=== PATIENT | male | born 1945 | race Caucasian/White ===

== ENCOUNTER → 2017-06-28 15:46 | Outpatient (CLI) | payer MEDICARE, OTHER, SELFPAY ==
[2017-06-28 17:36] LABS: Absolute Lymphocyte Count 1.37 X10^3/ul (0.83-4.51); Absolute Neutrophil Count 3.5 X10^3/uL (2.0-7.7); Basophil# 0.02 X10^3/uL; Basophil% 0.4 % (0-1); Eosinophil# 0.15 X10^3/uL; Eosinophils% 2.7 % (0-5); Hematocrit 31.6 % (40-54); Hemoglobin 8.3 g/dl (13.0-16.5); Lymphocyte # 1.37 X10^3/ul (4.0); Lymphocyte % 24.4 % (19-41); Mean Corp Hgb Conc 26.3 g/gl (32-36); Mean Corpuscular Hgb 18.4 pg (27.0-32.0); Mean Corpuscular Volume 69.9 fL (80-94); Mean Platelet Vol. 9.6 fl (6.2-12.0); Monocyte# 0.58 X10^3/uL; Monocyte% 10.3 % (0-10); Neutrophil # 3.49 X10^3/uL (2.7-7.7); Platelet Count 185 K/mm3 (150-450); RBC Distribution Width CV 18.8 % (11.6-14.6); Red Blood Count 4.52 M/mm3 (4.6-6.2); White Blood Count 5.6 K/mm3 (4.4-11.0)
[2017-06-28 17:37] LABS: Differential Indicated SCAN CRITERIA MET; POSITIVE COUNT NO; POSITIVE DIFFERENTIAL NO; POSITIVE MORPHOLOGY YES
[2017-06-28 17:40] LABS: Vitamin D,25 Hydroxy 55.4 ng/mL (29.95-100.01)
[2017-06-28 17:43] LABS: ALB/GLOB Ratio 1.1 RATIO (0.9-2.4); AST(SGOT) 14 U/L (15-37); Alanine Aminotransfer ALT/SGPT 19 U/L (16-61); Albumin, Serum 3.6 g/dL (3.2-5.0); Alkaline Phosphatase 80 U/L (45-117); Anion Gap 7 (5-15); BUN 43 mg/dL (7-18); BUN/Creat Ratio 28.5 RATIO (10-20); Calcium,Total 8.7 mg/dL (8.5-10.1); Chloride 107 mmol/L (98-107); Creatinine, Serum 1.51 mg/dL (0.70-1.30); EST Glomerular Filtration Rate 48 mL/min (>60); Est Glom Filt Rate - Afr Amer 59 mL/min (>60); Globulin 3.3 g/dL (2.2-4.2); Glucose 100 mg/dL (74-106); Potassium 4.3 mmol/L (3.5-5.1); Protein, Total 6.9 g/dL (6.4-8.2); Sodium Level 143 mmol/L (136-145); Thyroid Stim Hormone (TSH) 2.57 uIU/mL (0.358-3.74)
[2017-06-28 17:53] LABS: Differential Comment SCANNED
[2017-06-30 09:28] LABS: Hep C Antibodies <0.1 s/co ratio (0.0-0.9)
== END ==
PROVIDERS: Visit Provider Family Medicine Geriatric Medicine
DX: Z13.89 Encounter for screening for other disorder (principal); E55.9 Vitamin D deficiency, unspecified; I25.10 Atherosclerotic heart disease of native coronary artery without angina pectoris; I10 Essential (primary) hypertension
CPT/HCPCS: 36415; 80053; 82306; 84443; 85025; 86803

== ENCOUNTER → 2017-07-21 16:48 | Outpatient (CLI) | payer MEDICARE, OTHER, SELFPAY ==
[2017-07-21 17:45] LABS: Absolute Lymphocyte Count 1.15 X10^3/ul (0.83-4.51); Basophil# 0.03 X10^3/uL; Basophil% 0.6 % (0-1); Eosinophil# 0.18 X10^3/uL; Eosinophils% 3.7 % (0-5); Hematocrit 29.5 % (40-54); Hemoglobin 7.9 g/dl (13.0-16.5); Immature Platelet Fraction 3.5 % (1.0-7.9); Lymphocyte # 1.15 X10^3/ul (4.0); Lymphocyte % 23.7 % (19-41); Mean Corp Hgb Conc 26.8 g/gl (32-36); Mean Corpuscular Hgb 18.8 pg (27.0-32.0); Mean Corpuscular Volume 70.1 fL (80-94); Mean Platelet Vol. 9.1 fl (6.2-12.0); Monocyte# 0.48 X10^3/uL; Monocyte% 9.9 % (0-10); Neutrophil # 3.01 X10^3/uL (2.7-7.7); Neutrophil % 62.1 % (47-70); Platelet Count 158 K/mm3 (150-450); RBC Distribution Width CV 18.6 % (11.6-14.6); RET-HE 16.2 pg (30-35); Red Blood Count 4.21 M/mm3 (4.6-6.2); White Blood Count 4.9 K/mm3 (4.4-11.0)
[2017-07-21 17:46] LABS: Differential Indicated SCAN CRITERIA MET; POSITIVE COUNT NO; POSITIVE DIFFERENTIAL NO; POSITIVE MORPHOLOGY YES
[2017-07-21 18:30] LABS: Vitamin B12 890 pg/mL (211-911)
[2017-07-21 19:16] LABS: Iron 19 ug/dL (65-175); Iron Binding Capacity,Total 347 ug/dL (250-450)
== END ==
PROVIDERS: Visit Provider Family Medicine Geriatric Medicine
DX: D64.9 Anemia, unspecified (principal)
CPT/HCPCS: 36415; 82607; 82746; 83540; 83550; 85025; 85045

== ENCOUNTER → 2017-08-12 13:44 | Outpatient (CLI) | payer MEDICARE, OTHER, SELFPAY ==
[2017-08-12 17:16] LABS: Absolute Lymphocyte Count 1.01 X10^3/ul (0.83-4.51); Absolute Neutrophil Count 2.5 X10^3/uL (2.0-7.7); Basophil# 0.03 X10^3/uL; Basophil% 0.7 % (0-1); Eosinophil# 0.14 X10^3/uL; Eosinophils% 3.3 % (0-5); Hematocrit 36.5 % (40-54); Hemoglobin 10.1 g/dl (13.0-16.5); Lymphocyte # 1.01 X10^3/ul (4.0); Lymphocyte % 24.1 % (19-41); Mean Corp Hgb Conc 27.7 g/gl (32-36); Mean Corpuscular Hgb 22.1 pg (27.0-32.0); Mean Corpuscular Volume 79.7 fL (80-94); Mean Platelet Vol. 9.9 fl (6.2-12.0); Monocyte# 0.46 X10^3/uL; Neutrophil # 2.54 X10^3/uL (2.7-7.7); Neutrophil % 60.7 % (47-70); Platelet Count 197 K/mm3 (150-450); RBC Distribution Width CV 28.1 % (11.6-14.6); RBC Distribution Width SD 77.9 fl (35.1-43.9); Red Blood Count 4.58 M/mm3 (4.6-6.2); White Blood Count 4.2 K/mm3 (4.4-11.0)
[2017-08-12 17:20] LABS: Differential Indicated SCAN CRITERIA MET; POSITIVE COUNT NO; POSITIVE DIFFERENTIAL NO; POSITIVE MORPHOLOGY YES
[2017-08-12 17:38] LABS: ALB/GLOB Ratio 1.2 RATIO (0.9-2.4); AST(SGOT) 20 U/L (15-37); Alanine Aminotransfer ALT/SGPT 22 U/L (16-61); Albumin, Serum 3.5 g/dL (3.2-5.0); Alkaline Phosphatase 75 U/L (45-117); Anion Gap 8 (5-15); BUN 29 mg/dL (7-18); BUN/Creat Ratio 22.1 RATIO (10-20); Chloride 108 mmol/L (98-107); Creatinine, Serum 1.31 mg/dL (0.70-1.30); EST Glomerular Filtration Rate 57 mL/min (>60); Est Glom Filt Rate - Afr Amer 69 mL/min (>60); Glucose 105 mg/dL (74-106); Iron 47 ug/dL (65-175); Iron Binding Capacity,Total 333 ug/dL (250-450); Potassium 4.4 mmol/L (3.5-5.1); Protein, Total 6.5 g/dL (6.4-8.2); Sodium Level 144 mmol/L (136-145); Thyroid Stim Hormone (TSH) 2.38 uIU/mL (0.358-3.74)
[2017-08-12 18:03] LABS: Anisocytosis 2+; Burr Cells RARE; Ovalocyte 1+
[2017-08-12 18:08] LABS: Acanthocytes RARE
== END ==
PROVIDERS: Visit Provider Internal Medicine Nephrology
DX: D50.9 Iron deficiency anemia, unspecified (principal); I10 Essential (primary) hypertension
CPT/HCPCS: 36415; 80053; 83540; 83550; 84443; 85025

== ENCOUNTER → 2017-08-27 09:51 | Outpatient (CLI) | payer MEDICARE, OTHER, SELFPAY ==
--- NOTE | 2017-08-27 10:03 | US_ITS ---
STUDY: RENAL ULTRASOUND - COMPLETE REASON FOR EXAM: Male, 72 years old. CKD 3 TECHNIQUE: Ultrasound evaluation of the kidneys was performed with real-time and static michel-scale imaging. COMPARISON: None. FINDINGS: RIGHT KIDNEY: Normal location of the right kidney, which is normal in size. The right kidney measures 10.7 x 5.1 x 5.5 cm. There is a normal cortex of the right kidney. The renal cortex measures 1.7 cm. There is no right renal mass or cyst. There are no right renal calculi. There is no right hydronephrosis. DISTAL RIGHT URETER: There is non-visualization of the distal right ureter. There is no demonstrated right ureterovesical junction calculus. There is no demonstrated right ureteral jet. LEFT KIDNEY: Normal location of the left kidney, which is normal in size. The left kidney measures 10.9 x 5.3 x 4.8 cm. There is a normal cortex of the left kidney. The renal cortex measures 1.3 cm. There is no left renal mass or cyst. There are no left renal calculi. There is no left hydronephrosis. DISTAL LEFT URETER: There is non-visualization of the distal left ureter. There is no demonstrated left ureterovesical junction calculus. There is no demonstrated left ureteral jet. AORTA: There is no elongation or tortuosity acute of the abdominal aorta. I.V.C.: The IVC is obscured. BLADDER: The distended urinary bladder has a volume of 32 ml. There is a normal wall thickness of the distended urinary bladder. There is no demonstrated mass within the urinary bladder. There are no demonstrated bladder calculi. US/Kidney and Bladder IMPRESSION: Normal ultrasound of the kidneys and urinary bladder. Electronically Signed: Blayne Valle MD at 21:07 EDT , Service support ,
== END ==
PROVIDERS: Family Provider Family Medicine Geriatric Medicine; PCP Family Medicine Geriatric Medicine; Visit Provider Internal Medicine Nephrology
DX: N18.3 Chronic kidney disease, stage 3 (moderate) (principal)
CPT/HCPCS: 76770

== ENCOUNTER → 2017-10-12 16:27 | Outpatient (CLI) | payer MEDICARE, OTHER, SELFPAY ==
[2017-10-12 17:24] LABS: Albumin, Serum 3.4 g/dL (3.2-5.0); BUN 34 mg/dL (7-18); Calcium,Total 8.5 mg/dL (8.5-10.1); Chloride 110 mmol/L (98-107); Creatinine, Serum 1.36 mg/dL (0.70-1.30); EST Glomerular Filtration Rate 55 mL/min (>60); Est Glom Filt Rate - Afr Amer 66 mL/min (>60); Glucose 90 mg/dL (74-106); Potassium 4.2 mmol/L (3.5-5.1); Sodium Level 144 mmol/L (136-145)
== END ==
PROVIDERS: Family Provider Family Medicine Geriatric Medicine; PCP Family Medicine Geriatric Medicine; Visit Provider Internal Medicine Nephrology
DX: N18.3 Chronic kidney disease, stage 3 (moderate) (principal)
CPT/HCPCS: 36415; 80069

== ENCOUNTER → 2017-12-15 15:23 | Outpatient (CLI) | payer MEDICARE, OTHER, SELFPAY ==
[2017-12-15 16:18] LABS: Absolute Lymphocyte Count 1.31 X10^3/ul (0.83-4.51); Absolute Neutrophil Count 3.2 X10^3/uL (2.0-7.7); Basophil# 0.03 X10^3/uL; Basophil% 0.6 % (0-1); Eosinophil# 0.13 X10^3/uL; Eosinophils% 2.6 % (0-5); Hematocrit 41.5 % (40-54); Hemoglobin 12.9 g/dl (13.0-16.5); Lymphocyte # 1.31 X10^3/ul (4.0); Lymphocyte % 26.2 % (19-41); Mean Corp Hgb Conc 31.1 g/gl (32-36); Mean Corpuscular Hgb 26.9 pg (27.0-32.0); Mean Corpuscular Volume 86.5 fL (80-94); Mean Platelet Vol. 10.7 fl (6.2-12.0); Monocyte# 0.37 X10^3/uL; Monocyte% 7.4 % (0-10); Neutrophil # 3.15 X10^3/uL (2.7-7.7); Platelet Count 176 K/mm3 (150-450); RBC Distribution Width CV 15.9 % (11.6-14.6); RBC Distribution Width SD 49.8 fl (35.1-43.9)
[2017-12-15 16:21] LABS: POSITIVE COUNT NO; POSITIVE DIFFERENTIAL NO; POSITIVE MORPHOLOGY NO
[2017-12-15 16:41] LABS: Vitamin D,25 Hydroxy 58.4 ng/mL (29.95-100.01)
[2017-12-15 16:54] LABS: ALB/GLOB Ratio 1.1 RATIO (0.9-2.4); AST(SGOT) 19 U/L (15-37); Alanine Aminotransfer ALT/SGPT 28 U/L (16-61); Albumin, Serum 3.6 g/dL (3.2-5.0); Alkaline Phosphatase 92 U/L (45-117); Anion Gap 7 (5-15); BUN 41 mg/dL (7-18); BUN/Creat Ratio 28.1 RATIO (10-20); Calcium,Total 8.5 mg/dL (8.5-10.1); Chloride 109 mmol/L (98-107); Creatinine, Serum 1.46 mg/dL (0.70-1.30); EST Glomerular Filtration Rate 50 mL/min (>60); Est Glom Filt Rate - Afr Amer 61 mL/min (>60); Globulin 3.4 g/dL (2.2-4.2); Glucose 100 mg/dL (74-106); Potassium 4.4 mmol/L (3.5-5.1); Sodium Level 144 mmol/L (136-145); Thyroid Stim Hormone (TSH) 2.49 uIU/mL (0.358-3.74)
== END ==
PROVIDERS: Family Provider Family Medicine Geriatric Medicine; PCP Family Medicine Geriatric Medicine; Visit Provider Family Medicine Geriatric Medicine
DX: E55.9 Vitamin D deficiency, unspecified (principal); R53.83 Other fatigue
CPT/HCPCS: 36415; 80053; 82306; 84443; 85025

== ENCOUNTER → 2018-03-02 15:35 | Outpatient (CLI) | payer MEDICARE, OTHER, SELFPAY ==
--- OUTSIDE RECORDS SUMMARY | 2018-05-04 18:11 | XMS RPT_ITS ---
:1945 Author Organization OHIP Care Team Providers Name Role Phone Lorne, Wilbert Chi Attending Unavailable Lorne, Wilbert Chi Attending Unavailable Rosalia Brizuela Attending Unavailable Primay Care Physicia, No Primary Care Unavailable Fabricio Thomason Attending Unavailable Fabricio Thomason Referring Unavailable Lorne, Wilbert Chi Primary Care Unavailable Rosalia Brizuela Attending Unavailable Rosalia Brizuela Referring Unavailable Lorne, Wilbert Chi Primary Care Unavailable Rosalia Brizuela Attending Unavailable Rosalia Brizuela Referring Unavailable Lorne, Wilbert Chi Primary Care Unavailable Lorne, Wilbert Chi Attending Unavailable Lonre, Wilbert Chi Primary Care Unavailable JACI COBB Attending Unavailable JACI COBB Referring Unavailable TESTRAJACI MATUTE Attending Unavailable TESTJACI SANDERSON Referring Unavailable JAVID TUTTLE (PA) Attending Unavailable JAVID TUTTLE (GLENNY) Referring Unavailable JAVID TUTTLE (GLENNY) Referring Unavailable Dumot, Dr. Ericka Lozoya Attending Unavailable Dumot, Dr. Ericka Lozoya Referring Unavailable Cuculic, Danielle Butler Primary Care Unavailable Dumot, Dr. Ericka Lozoya Admitting Unavailable Dumot, Dr. Ericka Lozoya Attending Unavailable Cuculic, Danielle Butler Referring Unavailable Cuculic, Danielle Butler Primary Care Unavailable Dumot, Dr. 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 Natanael Hendrix without obstruction [facility] or gangrene / Repository K44.9(ICD-10) 04/26/2017 Unknown Type 2 diabetes Dumot, Dr. Natanael Hendrix mellitus without [facility] complications / Repository E11.9(ICD-10) 04/26/2017 Unknown Anemia, unspecified Dumot, Dr. Natanael Hendrix / D64.9(ICD-10) [facility] Repository 04/26/2017 Unknown Obstructive sleep Dumot, Dr. Natanael Hendrix apnea (adult) [facility] (pediatric) / Repository G47.33(ICD-10) 04/26/2017 Unknown Morbid (severe) Dumot, Dr. Natanael Hendrix obesity due to [facility] excess calories / Repository E66.01(ICD-10) 04/26/2017 Unknown Patient's Dumot, Dr. 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 Natanael Hendrix hypertension / [facility] I10(ICD-10) Repository 04/26/2017 Unknown Hyperlipidemia, Dumot, Dr. Natanael Hendrix unspecified / [facility] E78.5(ICD-10) Repository 04/26/2017 Unknown Body mass index Dumot, Dr. Natanael Hendrix (BMI) 33.0-33.9, [facility] adult / Repository Z68.33(ICD-10) 04/26/2017 Unknown Presence of other Dumot, Dr. Natanael Hendrix cardiac implants and [facility] grafts / Repository Z95.818(ICD-10) 03/18/2017 Unknown Encntr for exam for Dumot, Dr. 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 Natanael Hendrix (BMI) 36.0-36.9, [facility] adult / Repository Z68.36(ICD-10) 03/18/2017 Unknown Prsnl hx of TIA Dumot, Dr. Natanael Hendrix (TIA), and cereb [facility] infrc w/o resid Repository deficits / Z86.73(ICD-10) 03/18/2017 Unknown Personal history of Dumot, Dr. Natanael Hendrix malignant neoplasm [facility] of prostate / Repository Z85.46(ICD-10) 03/18/2017 Unknown Presence of coronary Dumot, Dr. Natanael Hendrix angioplasty implant [facility] and graft / Repository Z95.5(ICD-10) 03/18/2017 Unknown assisted (current) Dumot, Dr. Natanael Hendrix use of [facility] anticoagulants / Repository Z79.01(ICD-10) 03/18/2017 Active Encntr for exam for Dumot, Dr. Natanael Hendrix nr cmprsn and ctrl [facility] in [facility] prog Repository / Z00.6(ICD-10) 03/18/[address] Angela [facility] diagnosis with high grade [facility] dysplasia / Repository K22.711(ICD-10) PROCEDURES PROCEDURES DATE CODE DESCRIPTION STATUS SOURCE 04/26/2017 [id number]([facility] [id number] Completed [place] CPT4) Hospitals Repository 04/26/2017 [id number]([facility] 26551 Completed [place] CPT4) Hospitals Repository 03/18/2017 [id number]([facility] 73849 Completed [place] CPT4) Hospitals Repository 03/18/2017 [id number]([facility] [address] [facility] CPT4) Hospitals Repository RESULTS RESULTS Observed: 03/02/2018 Status: F Source: [place] CULTURE, THROAT 11:40 AM [facility] REPOSITORY Culture, Throat No Haemophilus, Streptococcus pneumoniae, beta-hemolytic Streptococcus isolated. ORGANISM 1: Staphylococcus aureus Amount Growth 2+ Staphylococcus aureus: REACTION Cefoxitin *NF NEG Doxycline <=0.5 S Daptomycin $$ 0.25 S Clindamycin $$ 0.25 S Inducable Clindamycin [place] NEG Erythromycin $ <=0.25 S Gentamicin $ <=0.5 S Levofloxacin $ 0.25 S Linezolid $$$$ 2 S Moxifloxicin *NF <=0.25 S Oxacillin NF 0.5 S Tigecycline $$$$ <=0.12 S Rifampin $$ <=0.5 S Tetracycline NF <=1 S Trimethoprim/Sulfametho $ <=10 S Vancomycin $ <=0.5 S (NF) indicates non-formulary drug at [facility]. Approval by Infectious Disease Specialist required before non-formulary drugs may be ordered and/or dispensed. * CLSI guidelines does not recommend testing of cephalosporins. This interpretation is deduced from Beta-lactam/penicillin results. Performed By: #### M100.1000 #### [facility] [address] [place], [place], [id number] PROGRESS Observed: 02/16/2018 Status: COMPLETED Source: [place] 3:49 PM [facility] REPOSITORY HNO ID: [id number] Author: Jaci Cobb Service: (none) Author Type: Physician Type: Progress Notes Filed: 02/16/2018 3:51 PM Note Text: Subjective: Patient presents to clinic c/o painful toenails. They state that the nails are especially painful with shoe gear and pressure. Patient states that nails 1-5 b/l are painful. Does have bunion of left foot that is not painful when he remembers to wear protective pad. No other pedal complaints at this time. Patient states no change in medications or medical history since last visit. Objective: Patient presents to clinic ambulating in sneakers Vasc: DP and PT pulses are palpable bilateral. CFT is less than 5 seconds bilateral. Skin temperature is warm to cool proximal to distal bilateral. There is mild edema or varicosities noted. Neuro: Protective sensation is intact to the foot and toes when tested with the 5.07 SWM bilateral. The hallux is downgoing bilateral. Derm: Nails 1-5 b/l are painful, discolored-yellow, thick, crumbly, dystrophic and with subungal debris. Skin is of normal turgor, texture and hair growth is present bilateral. There are no hyperkeratosis, ulcerations, scars, verruca or other lesions noted. Ortho: Muscle strength is 5/5 for all pedal groups tested. Ankle joint DF is full with the knee extended with no pain or crepitus noted. 1st MPJ ROM is decreased bilateral. There is large bunion of left foot. No skin break down is noted. Assessment: (B35.1) Onychomycosis (primary encounter diagnosis) (M79.675) Pain in toe of left foot (M79.674) Pain in toe of right foot (M20.12) Acquired hallux valgus of left foot Plan: Patient was seen and evaluated. Nails 1-5 bilateral were debrided in length and thickness. Discussed bunion of left foot. There is no pain. Cautioned patient about this bunion as this could be source of ulceration formation. He can continue with padding to prevent rubbing. Surgical options available but he is not interested. F/u in 3 months Jaci Cobb DPM PROGRESS Observed: 02/16/2018 Status: COMPLETED Source: [place] 1:44 PM [facility] REPOSITORY HNO ID: [id number] Author: Mary Elizondo Ma Service: (none) Author Type: (none) Type: Progress Notes Filed: 02/16/2018 3:51 PM Note Text: [facility] INTAKE FLOWSHEET DATA Risk Screening Do you have concerns about personal safety or safety in the home?: No Patient here for nail care. Sates that he has no pain. GIBSON Observed: 02/16/2018 Status: COMPLETED Source: [place] 1:25 PM [facility] REPOSITORY Office Visit (PODIWS) ERICKA SHELDON ([id number]) 1945 M Date Time Provider Department 02/16/18 1:25 PM JACI COBB PODIWS During your visit today, we recorded the following information about you: Mary Elizondo Ma 02/16/2018 3:51 PM Signed [facility] INTAKE FLOWSHE[employer] DATA Risk Screening Do you have concerns about personal safety or safety in the home?: No Patient here for nail care. Sates that he has no pain. Jaci Cobb DPM 02/16/2018 3:51 PM Signed Subjective: Patient presents to clinic c/o painful toenails. They state that the nails are especially painful with shoe gear and pressure. Patient states that nails 1-5 b/l are painful. Does have bunion of left foot that is not painful when he remembers to wear protective pad. No other pedal complaints at this time. Patient states no change in medications or medical history since last visit. Objective: Patient presents to clinic ambulating in [facility] Vasc: DP and PT pulses are palpable bilateral. CFT is less than 5 seconds bilateral. Skin temperature is warm to cool proximal to distal bilateral. There is mild edema or varicosities noted. Neuro: Protective sensation is intact to the foot and toes when tested with the 5.07 SWM bilateral. The hallux is downgoing bilateral. Derm: Nails 1-5 b/l are painful, discolored-yellow, thick, crumbly, dystrophic and with subungal debris. Skin is of normal turgor, texture and hair growth is present bilateral. There are no hyperkeratosis, ulcerations, scars, verruca or other lesions noted. Ortho: Muscle strength is 5/5 for all pedal groups tested. Ankle joint DF is full with the knee extended with no pain or crepitus noted. 1st MPJ ROM is decreased bilateral. There is large bunion of left foot. No skin break down is noted. Assessment: (B35.1) Onychomycosis (primary encounter diagnosis) (M79.675) Pain in toe of left foot (M79.674) Pain in toe of right foot (M20.12) Acquired hallux valgus of left foot Plan: Patient was seen and evaluated. Nails 1-5 bilateral were debrided in length and thickness. Discussed bunion of left foot. There is no pain. Cautioned patient about this bunion as this could be source of ulceration formation. He can continue with padding to prevent rubbing. Surgical options available but he is not interested. F/u in 3 months Jaci Cobb DPM Referring Provider: JACI COBB [[id number]] Allergies As of Date: 02/16/2018 (No Known Allergies) Date Reviewed: 02/16/2018 Reviewed by: Mary Elizondo Ma - Fully Assessed Reason for Visit: Established Patient [175] Primary Visit Diagnosis:Onychomycosis [B35.1] Other Visit Diagnoses:Pain in toe of left foot [M79.675] Pain in toe of right foot [M79.674] Acquired hallux valgus of left foot [M20.12] Prescriptions as of 02/16/2018 Sig: OXYBUTYNIN CHLORIDE ER 15 MG * Take 1 tablet by mouth once d* FUROSEMIDE 20 MG TABLET Take 1 tablet by mouth once d* RIVAROXABAN 20 MG TABLET Take 20 mg by mouth daily wit* FLUOXETINE 20 MG CAPSULE Take 1 capsule by mouth twice* APIXABAN 5 MG TABLET Take 1 tablet by mouth twice * CLOTRIMAZOLE-BETAMETHASONE 1 * Apply 1 application to affect* METOPROLOL SUCCINATE ER 200 M* Take 1 tablet by mouth once d* OMEPRAZOLE 20 MG CAPSULE,JORDAN* Take 1 capsule by mouth twice* OXICONAZOLE 1 % LOTION apply twice daily to affected* CLOTRIMAZOLE 1 % TOPICAL CREAM Apply 1 application to affect* ATORVASTATIN 40 MG TABLET Take 1 tablet by mouth once d* NITROGLYCERIN 0.4 MG SUBLINGU* Dissolve 1 tablet under the t* BIPAP Bilevel PAP 11/6 cmH2O, mask,* OXYMETAZOLINE 0.05 % NASAL SP* Use 2 Sprays in the nose twic* OMEGA-3 FATTY ACIDS-VITAMIN E* Take 1 capsule by mouth once * ACETAMINOPHEN 500 MG TABLET Take 500 mg by mouth every 6 * CHOLECALCIFEROL (VITAMIN D3) * Take 2,000 Units by mouth onc* PANTOPRAZOLE 40 MG TABLET,DEL* Take 40 mg by mouth twice mariah* ASPIRIN 81 MG TABLET,DELAYED * Take 81 mg by mouth once selma* Problem List As Of Date 02/16/2018 Noted Resolved Esophageal reflux [K21.9] INVALID FOR* More... Sleep apnea [G47.30] INVALID FOR* More... Left ventricular hypertrophy [I51.7] INVALID FOR* Nasal septal deviation [J34.2] INVALID FOR* Tinnitus [H93.19] INVALID FOR* Sinus congestion [R09.81] INVALID FOR*04/18/2013 Venous stasis of lower extremity [I87.8] INVALID FOR* Fever [R50.9] INVALID FOR*10/28/2013 UTI (urinary tract infection) [N39.0] INVALID FOR*10/28/2013 Mass of kidney [N28.89] INVALID FOR*10/28/2013 Mass of left kidney [N28.89] INVALID FOR*06/12/2014 Mood disorder (HCC) [F39] INVALID FOR* Chest pain [R07.9] INVALID FOR*06/12/2014 Elevated PSA [R97.20] INVALID FOR*02/19/2015 BPH (benign prostatic hyperplasia) [N40.0] INVALID FOR* UTI (lower urinary tract infection) [N39.0] INVALID FOR*06/12/2014 Lower urinary tract symptoms (LUTS) [R39.9] INVALID FOR* Elevated prostate specific antigen (PSA) [R97.2*INVALID FOR*06/12/2014 Prostate cancer (HCC) [C61] INVALID FOR* S/P PCI to LAD 2007 for stable angina [Z95.5] INVALID FOR* Essential hypertension [I10] INVALID FOR* Coronary artery disease involving la posta hall*INVALID FOR* Stress incontinence, male [N39.3] INVALID FOR* Urge incontinence [N39.41] INVALID FOR* KODY (acute kidney injury) (HCC) [N17.9] INVALID FOR*04/03/2016 Sepsis (HCC) [A41.9] INVALID FOR*04/02/2016 Cellulitis and abscess of leg [L03.119, L02.419]INVALID FOR*08/18/2016 Bacteremia due to group B Streptococcus [R78.81]INVALID FOR*04/30/2016 CKD (chronic kidney disease) stage 3, GFR 30-59*INVALID FOR* BiPAP (biphasic positive airway pressure) depen*INVALID FOR* Paroxysmal atrial fibrillation (HCC) [I48.0] INVALID FOR* Moderate episode of recurrent major depressive *INVALID FOR* Disposition: Return in about 3 months (around 05/17/2018) for nail care. Follow-up and Disposition History Recorded Encounter Status:Closed by JACI COBB DPM on 02/16/18 CBC W/DIFF, AUTOMATED Collected: 12/15/2017 Status: F Source: [place] 3:25 PM [facility] REPOSITORY TYPE CODE TESTS RESULT OUT OF RANGE REFERENCE UNITS LAB L100.1000 4.4-11.0 K/mm3 Normal WBC 5.0 LAB L100.1200 4.6-6.2 M/mm3 Normal RBC 4.80 LAB L100.1300 13.0-16.5 g/dl Low HGB 12.9 LAB L100.1400 40-54 % Normal HCT 41.5 LAB L100.1500 80-94 fL Normal MCV 86.5 LAB L100.1600 27.0-32.0 pg Low MCH 26.9 LAB L100.1700 32-36 g/gl Low MCHC 31.1 LAB L100.1810 11.6-14.6 % High RDW CV 15.9 LAB L100.1820 35.1-43.9 fl High RDW SD 49.8 LAB L100.1900 150-450 K/mm3 Normal PLT 176 LAB L100.2000 6.2-12.0 fl Normal MPV 10.7 LAB L100.2100 47-70 % Normal NEUT% 63.0 LAB L100.2200 19-41 % Normal LY% 26.2 LAB L100.2300 0-10 % Normal MONO% 7.4 LAB L100.2400 0-5 % Normal EO% 2.6 LAB L100.2500 0-1 % Normal BASO% 0.6 LAB L100.2550 0.0-0.9 % Normal IM GRAN % 0.200 Result Comment: IG% - Immature Granulocytes (promyelocytes, myelocytes and metamyelocytes) > 1% indicates that a LEFT SHIFT is Present. LAB L100.2620 2.0-7.7 X10 3/uL Normal Absolute Neut 3.2 LAB L100.2720 0.83-4.51 X10 3/ul Normal Absolute Lymph 1.31 Performed By: #### L100.0100 #### [facility] [address] [place], [place], [address] VITAMIN D,25 HYDROXY Collected: 12/15/2017 Status: F Source: [place] 3:25 PM [facility] REPOSITORY TYPE CODE TESTS RESULT OUT OF RANGE REFERENCE UNITS LAB L506.1000 29.95-100.01 ng/mL Normal Vitamin D 58.4 25-OH Result Comment: Vitamin D 25(OH) Status Range Deficiency <20 ng/mL (50nmol/L) Insuffciency 20 - 30 ng/mL (50 - 75 nmol/L) Sufficiency 30 - 100 ng/mL (75 - 250 nmol/L) Toxicity >100 ng/mL (>250 nmol/L) Performed By: #### L506.1000 #### [facility] [address] [place], [place], [address] COMPREHENSIVE METABOLIC Collected: 12/15/2017 Status: F Source: [facility] 3:25 PM [facility] REPOSITORY TYPE CODE TESTS RESULT OUT OF RANGE REFERENCE UNITS LAB L501.0100 74-106 mg/dL Normal GLU 100 Result Comment: Fasting Glucose result from 100 to 125 mg/dL suggests IMPAIRED HOMEOSTASIS per A.D.A. criteria. Please note revised GLUCOSE reference range effective 2017. LAB L501.1000 7-18 mg/dL High BUN 41 LAB L501.1100 0.70-1.30 mg/dL High CREAT,SERUM 1.46 Result Comment: The validity of the calculated GFR AND GFRAA in patients over 70 years has not been determined. Clinical correlation is essential. LAB L501.1110 >60 mL/min Low EST GFR 50 Result Comment: Non- GFR Calc LAB L501.1115 >60 mL/min Normal EST GFR - AA 61 Result Comment: GFR Calc LAB L501.1300 10-20 RATIO High BUN/CRE 28.1 LAB L501.1500 6.4-8.2 g/dL T Normal PROT 7.0 LAB L501.1800 3.2-5.0 g/dL Normal ALB 3.6 LAB L501.1950 2.2-4.2 g/dL Normal GLOB 3.4 LAB L501.2000 0.9-2.4 RATIO Normal A/G 1.1 LAB L501.2200 8.5-10.1 mg/dL CA Normal 8.5 LAB L501.4100 15-37 U/L Normal AST 19 LAB L501.4305 45-117 U/L Normal ALK P 92 LAB L501.4405 16-61 U/L Normal ALT 28 LAB L501.4600 0.20-1.00 mg/dL T Normal BILI 0.60 LAB L501.5300 136-145 mmol/L NA Normal 144 LAB L501.5600 3.5-5.1 mmol/L K Normal 4.4 LAB L501.5900 98-107 mmol/L High CL 109 LAB L501.6100 21.0-32.0 mmol/L Normal CO2 28.0 LAB L501.6200 5-15 Normal GAP 7 Performed By: #### L500.4050, L501.9520 #### [facility] [address] [place], [place], [id number] THYROID STIM HORMONE Collected: 12/15/2017 Status: F Source: [place] ([facility]) 3:25 PM [facility] REPOSITORY TYPE CODE TESTS RESULT OUT OF RANGE REFERENCE UNITS LAB L501.9520 0.358-3.74 uIU/mL Normal TSH 2.49 Performed By: #### L500.4050, L501.9520 #### [facility] [address] [place], [place], [address] PROGRESS Observed: 12/09/2017 Status: COMPLETED Source: [place] 2:19 PM [facility] [place] REPOSITORY HNO ID: [id number] Author: Jaci Cobb Service: (none) Author Type: Physician Type: Progress Notes Filed: 12/09/2017 2:34 PM Note Text: Initial Podiatric Office Visit: Chief Complaint: This 72 year old male who presents with chief complaint:painful toenails of b/l feet HPI Patient presents to clinic complaining of thick discolored and painful left hallux toenail. He is here to discuss options for the toenail He is not to sure if he wants the nails debrided today. He also has pain to bunion of left foot PAIN EVALUATION No data found. Hemoglobin A1C (%) Date Value 12/15/2016 6.0 06/06/2014 5.9 12/26/2013 5.7 06/08/2011 5.6 03/25/2007 5.8 PCP: Wilbert Pradhan MD PAST MEDICAL HISTORY Diagnosis Date - Atrial fibrillation (HCC) 04/02/2016 - Bacteremia due to group B Streptococcus 04/02/2016 - Coronary atherosclerosis of unspecified type of vessel, la posta or graft 90% LAD --> LIZ 2008 40% RCA - Depression - Esophageal reflux - Essential hypertension, benign - Mixed hyperlipidemia Hyperlipidemia - Obstructive sleep apnea - Paroxysmal atrial fibrillation (HCC) 04/30/2016 - Prostate cancer (HCC) 07/11/2014 Current Outpatient Prescriptions: oxybutynin ER (DITROPAN XL) 15 mg 24 hr Extended Rel Tab Take 1 tablet by mouth once daily. furosemide (LASIX) 20 mg tablet Take 1 tablet by mouth once daily. rivaroxaban (XARELTO) 20 mg tablet Take 20 mg by mouth daily with dinner. FLUoxetine (PROZAC) 20 mg capsule Take 1 capsule by mouth twice daily. apixaban (ELIQUIS) 5 mg tab tab(s) Take 1 tablet by mouth twice daily. clotrimazole-betamethasone (LOTRISONE) cream Apply 1 application to affected area twice daily. TO AFFECTED AREA. metoprolol succinate ER (TOPROL XL) 200 mg 24 hr tablet Take 1 tablet by mouth once daily. omeprazole (PRILOSEC) 20 mg capsule Take 1 capsule by mouth twice daily. Oxiconazole Nitrate (OXISTAT) 1 % lotion apply twice daily to affected area as needed clotrimazole (LOTRIMIN, CLOTRIM) 1 % cream Apply 1 application to affected area twice daily. atorvastatin (LIPITOR) 40 mg tablet Take 1 tablet by mouth once daily. nitroglycerin sublingual (NITROQUICK) 0.4 mg SL tablet Dissolve 1 tablet under the tongue every 5 minutes as needed for Chest Pain. BIPAP Bilevel PAP 11/6 cmH2O, mask, tubing, filters, heated humidity, lifetime supplies. Dx: EDER [place]-3 Fatty Acids-Vitamin E (FISH OIL) 1,000 mg cap Take 1 capsule by mouth once daily. acetaminophen (TYLENOL) 500 mg tablet Take 500 mg by mouth every 6 hours as needed for Pain. cholecalciferol (VITAMIN D-3) 2,000 unit tablet Take 2,000 Units by mouth once daily. pantoprazole DR (PROTONIX) 40 mg tablet Take 40 mg by mouth twice daily. oxymetazoline (GENASAL) 0.05 % nasal spray Use 2 Sprays in the nose twice daily. PRN aspirin, enteric coated (ASPIRIN, ENTERIC COATED) 81 mg EC tablet Take 81 mg by mouth once daily. No current facility-administered medications for this visit. ALLERGIES No Known Allergies PAST SURGICAL HISTORY Procedure Laterality Date - APPENDECTOMY - COLONOSCOP W/ OR W/O [facility] SPEC 2001, 2016 - EGD W/O OR W/BRUSH/WASH 07/2012 EGD - PROSTATE SURGERY HX removed on 10/04/2014 - REMOVAL OF TONSILS,<12 Y/O Tonsillectomy - REPAIR OF NASAL SEPTUM Septoplasty - STENT PLACEMENT LIZ LAD 2007 - TOTAL KNEE REPLACEMENT Knee replacement, total right - TOTAL KNEE REPLACEMENT Knee replacement, total left FAMILY HISTORY Problem Relation Age of Onset - Cancer Father lung - Coronary Artery Disease Brother 2 brothers s/p PCI Social History Marital status: Spouse name: Years of education: 12 Number of children: 2 Occupational History 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[employer]* [employer] Social History Main Topics Smoking status: Never Smoker Smokeless tobacco: Never Used Alcohol use: No Drug use: No Sexual activity: Yes Partners with: Female Other Topics Concern Yes Comment:62[employer] BLOOD TRANSFUSIONS No SEAT BELT Yes REVIEW OF SYSTEMS GENERAL: Negative for Malaise, significant weight loss, fever RESPIRATORY: Negative for cough, wheezing and shortness of breath CARDIOVASCULAR: Negative for chest pain, leg swelling and palpitations GI: Negative for abdominal discomfort, blood in stools or black stools and change in bowel habits : Negative for dysuria, frequency and incontinence MUSCULOSKELETAL: Negative for joint pain or swelling, back pain, and muscle pain. SKIN: Negative for lesions, rash, and itching. HEMATOLOGY/LYMPHOLOGY Negative for prolonged bleeding, bruising easily, and swollen nodes. ENDOCRINE: Negative for cold or heat intolerance, polyuria, polydipsia and goiter. NEURO: negative Physical Exam: Constitutional: Pt is a well developed 72 year old male who is alert, oriented and cooperative Eyes: Following during examination. No redness or drainage. Respiratory: RR normal and nonlabored. Even breathing. No evidence of distress or shortness of breath. Psychology: Patient is engaged during conversation. Normal affect and mood. Does not appear depressed or anxious during encounter. Vascular: Dorsalis pedis and posterior tibial pulses palpable as b/l Capillary Fill time < 5 seconds to digits 1-5 b/l Skin temperature warm to warm proximal to distal b/l Hair growth present to digits Neurological: intact light touch/epicritic sensation Vibratory sensation decreased b/l decreased protective sensation + significant neurological deficits Dermatological: Nails 1-5 b/l appear thick, discolored, painful. Webspaces clean and dry 1-4 b/l. Skin appears dry b/l. No open lesions present. No callosities present. Musculoskeletal/Orthopaedic: Patient has pain to palpation of bunion of left foot Foot type is neutral structurally AJ ROM is full with knee extended and flexed 1st MPJ is full when loaded and no pain or crepitus are noted with ROM. MTJ, STJ are full and free of pain and crepitus. +5/5 muscle strength dorsiflexion, plantarflexion, inversion, eversion b/l ASSESSMENT: (B35.1) Onychomycosis (primary encounter diagnosis) (M79.675) Pain in toe of left foot (M79.674) Pain in toe of right foot (M20.12) Acquired hallux valgus of left foot PLAN: 1. History and physical examination performed. 2. Discussed painful toenails. Discussed debridement vs removal. He may consider removal in future. Today, he elected for debridement. Debridement 1-5 b/l was performed 3. Discussed bunion of left foot. This is progressive disorder. Offered xrays but he declined. Bunion sleeve dispensed. Continue with wider shoes 4. F/u in 3 months JANE Whittaker Observed: 12/09/2017 Status: COMPLETED Source: [facility] Office Visit (PODIWS) ERICKA SHELDON ([id number]) 1945 M Date Time Provider Department 12/09/17 2:10 PM JACI COBB PODLAQUITA During your visit today, we recorded the following information about you: Carmela Carrizales MA 12/09/2017 2:34 PM Signed AMB ROOMING INTAKE FLOWSHEET DATA Risk Screening Do you have concerns about personal safety or safety in the home?: No Patient is present for toenail fungus. Patient denies diabetic. Carmela Cobb DPM 12/09/2017 2:34 PM Signed Initial Podiatric Office Visit: Chief Complaint: This 72 year old male who presents with chief complaint:painful toenails of b/l feet HPI Patient presents to clinic complaining of thick discolored and painful left hallux toenail. He is here to discuss options for the toenail He is not to sure if he wants the nails debrided today. He also has pain to bunion of left foot PAIN EVALUATION No data found. Hemoglobin A1C (%) Date Value 12/15/2016 6.0 06/06/2014 5.9 12/26/2013 5.7 06/08/2011 5.6 03/25/2007 5.8 PCP: Wilbert Pradhan MD PAST MEDICAL HISTORY Diagnosis Date - Atrial fibrillation (HCC) 04/02/2016 - Bacteremia due to group B Streptococcus 04/02/2016 - Coronary atherosclerosis of unspecified type of vessel, la posta or graft 90% LAD --> LIZ 2008 40% RCA - Depression - Esophageal reflux - Essential hypertension, benign - Mixed hyperlipidemia Hyperlipidemia - Obstructive sleep apnea - Paroxysmal atrial fibrillation (HCC) 04/30/2016 - Prostate cancer (HCC) 07/11/2014 Current Outpatient Prescriptions: oxybutynin ER (DITROPAN XL) 15 mg 24 hr Extended Rel Tab Take 1 tablet by mouth once daily. furosemide (LASIX) 20 mg tablet Take 1 tablet by mouth once daily. rivaroxaban (XARELTO) 20 mg tablet Take 20 mg by mouth daily with dinner. FLUoxetine (PROZAC) 20 mg capsule Take 1 capsule by mouth twice daily. apixaban (ELIQUIS) 5 mg tab tab(s) Take 1 tablet by mouth twice daily. clotrimazole-betamethasone (LOTRISONE) cream Apply 1 application to affected area twice daily. TO AFFECTED AREA. metoprolol succinate ER (TOPROL XL) 200 mg 24 hr tablet Take 1 tablet by mouth once daily. omeprazole (PRILOSEC) 20 mg capsule Take 1 capsule by mouth twice daily. Oxiconazole Nitrate (OXISTAT) 1 % lotion apply twice daily to affected area as needed clotrimazole (LOTRIMIN, CLOTRIM) 1 % cream Apply 1 application to affected area twice daily. atorvastatin (LIPITOR) 40 mg tablet Take 1 tablet by mouth once daily. nitroglycerin sublingual (NITROQUICK) 0.4 mg SL tablet Dissolve 1 tablet under the tongue every 5 minutes as needed for Chest Pain. BIPAP Bilevel PAP 11/6 cmH2O, mask, tubing, filters, heated humidity, lifetime supplies. Dx: EDER Aurora-3 Fatty Acids-Vitamin E (FISH OIL) 1,000 mg cap Take 1 capsule by mouth once daily. acetaminophen (TYLENOL) 500 mg tablet Take 500 mg by mouth every 6 hours as needed for Pain. cholecalciferol (VITAMIN D-3) 2,000 unit tablet Take 2,000 Units by mouth once daily. pantoprazole DR (PROTONIX) 40 mg tablet Take 40 mg by mouth twice daily. oxymetazoline (GENASAL) 0.05 % nasal spray Use 2 Sprays in the nose twice daily. PRN aspirin, enteric coated (ASPIRIN, ENTERIC COATED) 81 mg EC tablet Take 81 mg by mouth once daily. No current facility-administered medications for this visit. ALLERGIES No Known Allergies PAST SURGICAL HISTORY Procedure Laterality Date - APPENDECTOMY - COLONOSCOP W/ OR W/O BRSH SPEC 2016 - EGD W/O OR W/BRUSH/WASH 07/2012 EGD - PROSTATE SURGERY HX removed on 10/04/2014 - REMOVAL OF TONSILS,<12 Y/O Tonsillectomy - REPAIR OF NASAL SEPTUM Septoplasty - STENT PLACEMENT LIZ LAD 2007 - TOTAL KNEE REPLACEMENT Knee replacement, total right - TOTAL KNEE REPLACEMENT Knee replacement, total left FAMILY HISTORY Problem Relation Age of Onset - Cancer Father lung - Coronary Artery Disease Brother 2 brothers s/p PCI Social History Marital status: Spouse name: Years of education: 12 Number of children: 2 Occupational History 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* [employer] Social History Main Topics Smoking status: Never Smoker Smokeless tobacco: Never Used Alcohol use: No Drug use: No Sexual activity: Yes Partners with: Female Other Topics Concern Yes Comment: [employer] BLOOD TRANSFUSIONS No SEAT BELT Yes REVIEW OF SYSTEMS GENERAL: Negative for Malaise, significant weight loss, fever RESPIRATORY: Negative for cough, wheezing and shortness of breath CARDIOVASCULAR: Negative for chest pain, leg swelling and palpitations GI: Negative for abdominal discomfort, blood in stools or black stools and change in bowel habits : Negative for dysuria, frequency and incontinence MUSCULOSKELETAL: Negative for joint pain or swelling, back pain, and muscle pain. SKIN: Negative for lesions, rash, and itching. HEMATOLOGY/LYMPHOLOGY Negative for prolonged bleeding, bruising easily, and swollen nodes. ENDOCRINE: Negative for cold or heat intolerance, polyuria, polydipsia and goiter. NEURO: negative Physical Exam: Constitutional: Pt is a well developed 72 year old male who is alert, oriented and cooperative Eyes: Following during examination. No redness or drainage. Respiratory: RR normal and nonlabored. Even breathing. No evidence of distress or shortness of breath. Psychology: Patient is engaged during conversation. Normal affect and mood. Does not appear depressed or anxious during encounter. Vascular: Dorsalis pedis and posterior tibial pulses palpable as b/l Capillary Fill time < 5 seconds to digits 1-5 b/l Skin temperature warm to warm proximal to distal b/l Hair growth present to digits Neurological: intact light touch/epicritic sensation Vibratory sensation decreased b/l decreased protective sensation + significant neurological deficits Dermatological: Nails 1-5 b/l appear thick, discolored, painful. Webspaces clean and dry 1-4 b/l. Skin appears dry b/l. No open lesions present. No callosities present. Musculoskeletal/Orthopaedic: Patient has pain to palpation of bunion of left foot Foot type is neutral structurally AJ ROM is full with knee extended and flexed 1st MPJ is full when loaded and no pain or crepitus are noted with ROM. MTJ, STJ are full and free of pain and crepitus. +5/5 muscle strength dorsiflexion, plantarflexion, inversion, eversion b/l ASSESSMENT: (B35.1) Onychomycosis (primary encounter diagnosis) (M79.675) Pain in toe of left foot (M79.674) Pain in toe of right foot (M20.12) Acquired hallux valgus of left foot PLAN: 1. History and physical examination performed. 2. Discussed painful toenails. Discussed debridement vs removal. He may consider removal in future. Today, he elected for debridement. Debridement 1-5 b/l was performed 3. Discussed bunion of left foot. This is progressive disorder. Offered xrays but he declined. Bunion sleeve dispensed. Continue with wider shoes 4. F/u in 3 months Jaci Cobb DPM Referring Provider: JACI COBB [[id number]] Allergies As of Date: 12/09/2017 (No Known Allergies) Date Reviewed: 12/09/2017 Reviewed by: Carmela Carrizales MA - Fully Assessed Reason for Visit: nail care [Other] Primary Visit Diagnosis:Onychomycosis [B35.1] Other Visit Diagnoses:Pain in toe of left foot [M79.675] Pain in toe of right foot [M79.674] Acquired hallux valgus of left foot [M20.12] Prescriptions as of 12/09/2017 Sig: OXYBUTYNIN CHLORIDE ER 15 MG * Take 1 tablet by mouth once d* FUROSEMIDE 20 MG TABLET Take 1 tablet by mouth once d* RIVAROXABAN 20 MG TABLET Take 20 mg by mouth daily wit* FLUOXETINE 20 MG CAPSULE Take 1 capsule by mouth twice* APIXABAN 5 MG TABLET Take 1 tablet by mouth twice * CLOTRIMAZOLE-BETAMETHASONE 1 * Apply 1 application to affect* METOPROLOL SUCCINATE ER 200 M* Take 1 tablet by mouth once d* OMEPRAZOLE 20 MG CAPSULE,JORDAN* Take 1 capsule by mouth twice* OXICONAZOLE 1 % LOTION apply twice daily to affected* CLOTRIMAZOLE 1 % TOPICAL CREAM Apply 1 application to affect* ATORVASTATIN 40 MG TABLET Take 1 tablet by mouth once d* NITROGLYCERIN 0.4 MG SUBLINGU* Dissolve 1 tablet under the t* BIPAP Bilevel PAP 11/6 cmH2O, mask,* OMEGA-3 FATTY ACIDS-VITAMIN E* Take 1 capsule by mouth once * ACETAMINOPHEN 500 MG TABLET Take 500 mg by mouth every 6 * CHOLECALCIFEROL (VITAMIN D3) * Take 2,000 Units by mouth onc* PANTOPRAZOLE 40 MG TABLET,DEL* Take 40 mg by mouth twice mariah* OXYMETAZOLINE 0.05 % NASAL SP* Use 2 Sprays in the nose twic* ASPIRIN 81 MG TABLET,DELAYED * Take 81 mg by mouth once selma* Problem List As Of Date 12/09/2017 Noted Resolved Esophageal reflux [K21.9] INVALID FOR* More... Sleep apnea [G47.30] INVALID FOR* More... Left ventricular hypertrophy [I51.7] INVALID FOR* Nasal septal deviation [J34.2] INVALID FOR* Tinnitus [H93.19] INVALID FOR* Sinus congestion [R09.81] INVALID FOR*04/18/2013 Venous stasis of lower extremity [I87.8] INVALID FOR* Fever [R50.9] INVALID FOR*10/28/2013 UTI (urinary tract infection) [N39.0] INVALID FOR*10/28/2013 Mass of kidney [N28.89] INVALID FOR*10/28/2013 Mass of left kidney [N28.89] INVALID FOR*06/12/2014 Mood disorder (HCC) [F39] INVALID FOR* Chest pain [R07.9] INVALID FOR*06/12/2014 Elevated PSA [R97.20] INVALID FOR*02/19/2015 BPH (benign prostatic hyperplasia) [N40.0] INVALID FOR* UTI (lower urinary tract infection) [N39.0] INVALID FOR*06/12/2014 Lower urinary tract symptoms (LUTS) [R39.9] INVALID FOR* Elevated prostate specific antigen (PSA) [R97.2*INVALID FOR*06/12/2014 Prostate cancer (HCC) [C61] INVALID FOR* S/P PCI to LAD 2007 for stable angina [Z95.5] INVALID FOR* Essential hypertension [I10] INVALID FOR* Coronary artery disease involving la posta hall*INVALID FOR* Stress incontinence, male [N39.3] INVALID FOR* Urge incontinence [N39.41] INVALID FOR* KODY (acute kidney injury) (HCC) [N17.9] INVALID FOR*04/03/2016 Sepsis (HCC) [A41.9] INVALID FOR*04/02/2016 Cellulitis and abscess of leg [L03.119, L02.419]INVALID FOR*08/18/2016 Bacteremia due to group B Streptococcus [R78.81]INVALID FOR*04/30/2016 CKD (chronic kidney disease) stage 3, GFR 30-59*INVALID FOR* BiPAP (biphasic positive airway pressure) depen*INVALID FOR* Paroxysmal atrial fibrillation (HCC) [I48.0] INVALID FOR* Moderate episode of recurrent major depressive *INVALID FOR* Encounter Status:Closed by JACI COBB DPM on 12/09/17 PROGRESS Observed: 12/09/2017 Status: COMPLETED Source: [facility] 2:04 PM [facility] REPOSITORY HNO ID: [id number] Author: Carmela Carrizales MA Service: (none) Author Type: (none) Type: Progress Notes Filed: 12/09/2017 2:34 PM Note Text: AMB ROOMING INTAKE FLOWSHEET DATA Risk Screening Do you have concerns about personal safety or safety in the home?: No Patient is present for toenail fungus. Patient denies diabetic. Carmela Carrizales MA PSA, DIAGNOSTIC Collected: 10/14/2017 Status: F Source: [facility] 10:35 AM [facility] REPOSITORY TYPE CODE TESTS RESULT OUT OF REFERENCE UNITS RANGE LAB PSA 0.00-2.59 ng/mL PSA, Diagnostic <0.03 Result Comment: Total PSA test methodology used is the Electrochemiluminescence Immunoassay. For an individual patient, the significance of a PSA level should be interpreted in a broad clinical context, including age, race, family history, digital rectal exam, prostate size, results of prior te sting (prostate biopsy, free PSA, PCA3), and use of 5-alpha reductase inhibitors. Considering the high incidence of asymptomatic cancer in the general population that may not pose an ultimate risk to a patient, the decision to recommend urological evaluation or prostate biopsy should be individualized after consideration of all these factors. REFERENCE: Shellie Padilla M.D., M.P.H., Kalyan Myrick M.D., Ph.D., Adi Roach M.D., Kathy Keenan M.P.H., Dari Roberts Sc.D. Effect of Verification Bias on Screening for Prostate Cancer by Measurement of Prostatic Specific Antigen. N Engl J Med 2003,349:335-42. Performed By: #### PSA #### [facility] [address] [place], [place] [address] PROGRESS Observed: 10/14/2017 Status: COMPLETED Source: [facility] 9:45 AM [facility] [place] REPOSITORY HNO ID: [id number] Author: Javid Tuttle (Pa) Service: (none) Author Type: Physician Material Mixer Type: Progress Notes Filed: 10/14/2017 9:53 AM Note Text: [facility] [place] CC: Prostate Cancer Follow-up HPI: This is a 72 year old male, with a Adenocarcinoma of Prostate who is s/p Robotic-Assisted Laparoscopic Radical Prostatectomy + PLND on 09/2014 Dittropan helps quite a bit for daytime, but when he take the Lasix he sill has some leakage of urine. pathology reported below PATHOLOGY: DATE: FINAL DIAGNOSIS 1. Lymph nodes, bilateral pelvic, excision (A) - Eight lymph nodes, negative for neoplasia (0/8). 2. Prostate, radical prostatectomy (B) - Adenocarcinoma of the prostate, Ferdinand score 3+4=7, with focal minimal extraprostatic extension. - Seminal vesicles are free of neoplasia. - Surgical margins are negative. - See synoptic report. LAB: PSA (ng/mL) Date Value 09/25/2015 <0.03 02/13/2015 <0.03 11/07/2014 <0.03 10/16/2014 0.21 PSA Screening (ng/mL) Date Value 10/30/2016 <0.03 = ALLERGY ALLERGIES No Known Allergies MEDICATIONS: oxybutynin ER (DITROPAN XL) 15 mg 24 hr Extended Rel Tab Take 1 tablet by mouth once daily. furosemide (LASIX) 20 mg tablet Take 1 tablet by mouth once daily. rivaroxaban (XARELTO) 20 mg tablet Take 20 mg by mouth daily with dinner. FLUoxetine (PROZAC) 20 mg capsule Take 1 capsule by mouth twice daily. apixaban (ELIQUIS) 5 mg tab tab(s) Take 1 tablet by mouth twice daily. clotrimazole-betamethasone (LOTRISONE) cream Apply 1 application to affected area twice daily. TO AFFECTED AREA. metoprolol succinate ER (TOPROL XL) 200 mg 24 hr tablet Take 1 tablet by mouth once daily. omeprazole (PRILOSEC) 20 mg capsule Take 1 capsule by mouth twice daily. Oxiconazole Nitrate (OXISTAT) 1 % lotion apply twice daily to affected area as needed clotrimazole (LOTRIMIN, CLOTRIM) 1 % cream Apply 1 application to affected area twice daily. atorvastatin (LIPITOR) 40 mg tablet Take 1 tablet by mouth once daily. nitroglycerin sublingual (NITROQUICK) 0.4 mg SL tablet Dissolve 1 tablet under the tongue every 5 minutes as needed for Chest Pain. BIPAP Bilevel PAP 11/6 cmH2O, mask, tubing, filters, heated humidity, lifetime supplies. Dx: EDER oxymetazoline (GENASAL) 0.05 % nasal spray Use 2 Sprays in the nose twice daily. PRN aspirin, enteric coated (ASPIRIN, ENTERIC COATED) 81 mg EC tablet Take 81 mg by mouth once daily. Aurora-3 Fatty Acids-Vitamin E (FISH OIL) 1,000 mg cap Take 1 capsule by mouth once daily. acetaminophen (TYLENOL) 500 mg tablet Take 500 mg by mouth every 6 hours as needed for Pain. cholecalciferol (VITAMIN D-3) 2,000 unit tablet Take 2,000 Units by mouth once daily. pantoprazole DR (PROTONIX) 40 mg tablet Take 40 mg by mouth twice daily. CONTINENCE: 1 per day POTENCY: None HISTORIES: FAMILY HISTORY Problem Relation Age of Onset - Cancer Father lung - Coronary Artery Disease Brother 2 brothers s/p PCI PAST MEDICAL HISTORY Diagnosis Date - Atrial fibrillation (HCC) 04/02/2016 - Bacteremia due to group B Streptococcus 04/02/2016 - Coronary atherosclerosis of unspecified type of vessel, la posta or graft 90% LAD --> LIZ 2008 40% RCA - Depression - Esophageal reflux - Essential hypertension, benign - Mixed hyperlipidemia Hyperlipidemia - Obstructive sleep apnea - Paroxysmal atrial fibrillation (HCC) 04/30/2016 - Prostate cancer (HCC) 07/11/2014 Social History Marital status: Spouse name: Years of education: 12 Number of children: 2 Occupational History Occupation Employer Comment [employer]* [employer] Social History Main Topics Smoking status: Never Smoker Smokeless tobacco: Never Used Alcohol use: No Drug use: No Sexual activity: Yes Partners with: Female Other Topics Concern Yes Comment:63-[employer] BLOOD TRANSFUSIONS No SEAT BELT Yes REVIEW OF SYSTEMS: General:SEE HPI, No weight loss, malaise or fevers. Genitourinary: No history of dysuria, frequency or incontinence The remainder of the ROS was negative. PHYSICAL EXAMINATION: Blood pressure 134/80, pulse (!) 54, temperature 36.9 ?C (98.5 ?F), weight 114 kg (251 lb 6.4 oz). General appearance: Well appearing, alert, in no acute distress, well-hydrated, well nourished Skin: Skin color, texture, turgor normal, no suspicious rashes or lesions Head: Normocephalic, no masses, lesions, tenderness or abnormalities Abdomen: Normal abdominal exam, Abdomen soft, non-tender. Bowel sounds normal. No masses, organomegaly IMPRESSION AND PLAN: > Hx of Adenocarcinoma of Prostate - s/p Robotic-Assisted Laparoscopic Radical Prostatectomy + PLND with Dr. Hermosillo > PSA -Pending > Ditropan Rerfilled > 1 yr. Appt w/ ROSA Maier MT, PA-C + PSA Lab prior to visit ROSA Can MT, PA-C CNOV Observed: 10/14/2017 Status: COMPLETED Source: [facility] 9:00 AM [facility] REPOSITORY Office Visit (UROLWS) ERICKA SHELDON ([id number]) 1945 M Date Time Provider Department 10/14/17 9:00 AM JAVID TUTTLE) UROLAMAURI During your visit today, we recorded the following information about you: Temperature Pulse Blood pressure Weight 98.5 degrees 54/minute 134/80 114 kg GLENNY Maier 10/14/2017 9:53 AM Signed [facility] [place] CC: Prostate Cancer Follow-up HPI: This is a 72 year old male, with a Adenocarcinoma of Prostate who is s/p Robotic-Assisted Laparoscopic Radical Prostatectomy + PLND on 09/2014 Dittropan helps quite a bit for daytime, but when he take the Lasix he sill has some leakage of urine. pathology reported below PATHOLOGY: DATE: FINAL DIAGNOSIS 1. Lymph nodes, bilateral pelvic, excision (A) - Eight lymph nodes, negative for neoplasia (0/8). 2. Prostate, radical prostatectomy (B) - Adenocarcinoma of the prostate, Beaumont score 3+4=7, with focal minimal extraprostatic extension. - Seminal vesicles are free of neoplasia. - Surgical margins are negative. - See synoptic report. LAB: PSA (ng/mL) Date Value 09/25/2015 <0.03 02/13/2015 <0.03 11/07/2014 <0.03 10/16/2014 0.21 PSA Screening (ng/mL) Date Value 10/30/2016 <0.03 = ALLERGY ALLERGIES No Known Allergies MEDICATIONS: oxybutynin ER (DITROPAN XL) 15 mg 24 hr Extended Rel Tab Take 1 tablet by mouth once daily. furosemide (LASIX) 20 mg tablet Take 1 tablet by mouth once daily. rivaroxaban (XARELTO) 20 mg tablet Take 20 mg by mouth daily with dinner. FLUoxetine (PROZAC) 20 mg capsule Take 1 capsule by mouth twice daily. apixaban (ELIQUIS) 5 mg tab tab(s) Take 1 tablet by mouth twice daily. clotrimazole-betamethasone (LOTRISONE) cream Apply 1 application to affected area twice daily. TO AFFECTED AREA. metoprolol succinate ER (TOPROL XL) 200 mg 24 hr tablet Take 1 tablet by mouth once daily. omeprazole (PRILOSEC) 20 mg capsule Take 1 capsule by mouth twice daily. Oxiconazole Nitrate (OXISTAT) 1 % lotion apply twice daily to affected area as needed clotrimazole (LOTRIMIN, CLOTRIM) 1 % cream Apply 1 application to affected area twice daily. atorvastatin (LIPITOR) 40 mg tablet Take 1 tablet by mouth once daily. nitroglycerin sublingual (NITROQUICK) 0.4 mg SL tablet Dissolve 1 tablet under the tongue every 5 minutes as needed for Chest Pain. BIPAP Bilevel PAP 11/6 cmH2O, mask, tubing, filters, heated humidity, lifetime supplies. Dx: EDER oxymetazoline (GENASAL) 0.05 % nasal spray Use 2 Sprays in the nose twice daily. PRN aspirin, enteric coated (ASPIRIN, ENTERIC COATED) 81 mg EC tablet Take 81 mg by mouth once daily. Aurora-3 Fatty Acids-Vitamin E (FISH OIL) 1,000 mg cap Take 1 capsule by mouth once daily. acetaminophen (TYLENOL) 500 mg tablet Take 500 mg by mouth every 6 hours as needed for Pain. cholecalciferol (VITAMIN D-3) 2,000 unit tablet Take 2,000 Units by mouth once daily. pantoprazole DR (PROTONIX) 40 mg tablet Take 40 mg by mouth twice daily. CONTINENCE: 1 per day POTENCY: None HISTORIES: FAMILY HISTORY Problem Relation Age of Onset - Cancer Father lung - Coronary Artery Disease Brother 2 brothers s/p PCI PAST MEDICAL HISTORY Diagnosis Date - Atrial fibrillation (HCC) 04/02/2016 - Bacteremia due to group B Streptococcus 04/02/2016 - Coronary atherosclerosis of unspecified type of vessel, la posta or graft 90% LAD --> LIZ 2008 40% RCA - Depression - Esophageal reflux - Essential hypertension, benign - Mixed hyperlipidemia Hyperlipidemia - Obstructive sleep apnea - Paroxysmal atrial fibrillation (HCC) 04/30/2016 - Prostate cancer (HCC) 07/11/2014 Social History Marital status: Spouse name: Years of education: 12 Number of children: 2 Occupational History 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* [employer] Social History Main Topics Smoking status: Never Smoker Smokeless tobacco: Never Used Alcohol use: No Drug use: No Sexual activity: Yes Partners with: Female Other Topics Concern Yes Comment:63-[employer] BLOOD TRANSFUSIONS No SEAT BELT Yes REVIEW OF SYSTEMS: General:SEE HPI, No weight loss, malaise or fevers. Genitourinary: No history of dysuria, frequency or incontinence The remainder of the ROS was negative. PHYSICAL EXAMINATION: Blood pressure 134/80, pulse (!) 54, temperature 36.9 ?C (98.5 ?F), weight 114 kg (251 lb 6.4 oz). General appearance: Well appearing, alert, in no acute distress, well-hydrated, well nourished Skin: Skin color, texture, turgor normal, no suspicious rashes or lesions Head: Normocephalic, no masses, lesions, tenderness or abnormalities Abdomen: Normal abdominal exam, Abdomen soft, non-tender. Bowel sounds normal. No masses, organomegaly IMPRESSION AND PLAN: > Hx of Adenocarcinoma of Prostate - s/p Robotic-Assisted Laparoscopic Radical Prostatectomy + PLND with Dr. Hermosillo > PSA -Pending > Ditropan Rerfilled > 1 yr. Appt w/ ROSA Maier MT, PA-C + PSA Lab prior to visit ROSA Can MT, ENDY Referring Provider: JAVID TUTTLE (GLENNY) [[id number]] Allergies As of Date: 10/14/2017 (No Known Allergies) Date Reviewed: 10/14/2017 Reviewed by: Nay Kim RN - Fully Assessed Reason for Visit: Established Patient [175] Primary Visit Diagnosis:Prostate cancer (HCC) [C61] Order(s):UA DIP, URINE (POC) [0280910] Order #: [id number] UA DIP, URINE (POC) [1499626] Order #: [id number]. #:[id number] PSA/PROSTSPECAG DIAG [SQPSA] Order #: [id number] FUTURE PSA/PROSTSPECAG DIAG [SQPSA] Order #: [id number] oxybutynin ER (DITROPAN XL) 15 mg 24 hr Extended Rel TabTake 1 tablet by mouth once daily.Disp: 90 tabletRfl: 3 Prescriptions as of 10/14/2017 Sig: OXYBUTYNIN CHLORIDE ER 15 MG * Take 1 tablet by mouth once d* FUROSEMIDE 20 MG TABLET Take 1 tablet by mouth once d* RIVAROXABAN 20 MG TABLET Take 20 mg by mouth daily wit* FLUOXETINE 20 MG CAPSULE Take 1 capsule by mouth twice* APIXABAN 5 MG TABLET Take 1 tablet by mouth twice * CLOTRIMAZOLE-BETAMETHASONE 1 * Apply 1 application to affect* METOPROLOL SUCCINATE ER 200 M* Take 1 tablet by mouth once d* OMEPRAZOLE 20 MG CAPSULE,JORDAN* Take 1 capsule by mouth twice* OXICONAZOLE 1 % LOTION apply twice daily to affected* CLOTRIMAZOLE 1 % TOPICAL CREAM Apply 1 application to affect* ATORVASTATIN 40 MG TABLET Take 1 tablet by mouth once d* NITROGLYCERIN 0.4 MG SUBLINGU* Dissolve 1 tablet under the t* BIPAP Bilevel PAP 11/6 cmH2O, mask,* OXYMETAZOLINE 0.05 % NASAL SP* Use 2 Sprays in the nose twic* ASPIRIN 81 MG TABLET,DELAYED * Take 81 mg by mouth once slema* OMEGA-3 FATTY ACIDS-VITAMIN E* Take 1 capsule by mouth once * ACETAMINOPHEN 500 MG TABLET Take 500 mg by mouth every 6 * CHOLECALCIFEROL (VITAMIN D3) * Take 2,000 Units by mouth onc* PANTOPRAZOLE 40 MG TABLET,DEL* Take 40 mg by mouth twice mariah* Problem List As Of Date 10/14/2017 Noted Resolved Esophageal reflux [K21.9] INVALID FOR* More... Sleep apnea [G47.30] INVALID FOR* More... Left ventricular hypertrophy [I51.7] INVALID FOR* Nasal septal deviation [J34.2] INVALID FOR* Tinnitus [H93.19] INVALID FOR* Sinus congestion [R09.81] INVALID FOR*04/18/2013 Venous stasis of lower extremity [I87.8] INVALID FOR* Fever [R50.9] INVALID FOR*10/28/2013 UTI (urinary tract infection) [N39.0] INVALID FOR*10/28/2013 Mass of kidney [N28.89] INVALID FOR*10/28/2013 Mass of left kidney [N28.89] INVALID FOR*06/12/2014 Mood disorder (HCC) [F39] INVALID FOR* Chest pain [R07.9] INVALID FOR*06/12/2014 Elevated PSA [R97.20] INVALID FOR*02/19/2015 BPH (benign prostatic hyperplasia) [N40.0] INVALID FOR* UTI (lower urinary tract infection) [N39.0] INVALID FOR*06/12/2014 Lower urinary tract symptoms (LUTS) [R39.9] INVALID FOR* Elevated prostate specific antigen (PSA) [R97.2*INVALID FOR*06/12/2014 Prostate cancer (HCC) [C61] INVALID FOR* S/P PCI to LAD 2007 for stable angina [Z95.5] INVALID FOR* Essential hypertension [I10] INVALID FOR* Coronary artery disease involving la posta hall*INVALID FOR* Stress incontinence, male [N39.3] INVALID FOR* Urge incontinence [N39.41] INVALID FOR* KODY (acute kidney injury) (HCC) [N17.9] INVALID FOR*04/03/2016 Sepsis (HCC) [A41.9] INVALID FOR*04/02/2016 Cellulitis and abscess of leg [L03.119, L02.419]INVALID FOR*08/18/2016 Bacteremia due to group B Streptococcus [R78.81]INVALID FOR*04/30/2016 CKD (chronic kidney disease) stage 3, GFR 30-59*INVALID FOR* BiPAP (biphasic positive airway pressure) depen*INVALID FOR* Paroxysmal atrial fibrillation (HCC) [I48.0] INVALID FOR* Moderate episode of recurrent major depressive *INVALID FOR* Prescriptions ordered this encounter Disp Refills Start End OXYBUTYNIN CHLORIDE ER 15 MG TABLET,* 90 t* 3 10/14/2017 Route: ORAL Sig: Take 1 tablet by mouth once daily. Medications Discontinued During This Encounter oxybutynin ER (DITROPAN XL) 10 mg 24* 5 ta* 0 10/09/2014 10/14/2017 Route: ORAL Sig: Take 1 tablet by mouth once daily for 5 days. Disc: Reason for discontinue is not on file. Cosign accepted by CHU HERMOSILLO MD[[id number]] on 10/10/2014 4:51 PM oxybutynin ER (DITROPAN XL) 15 mg 24* 90 t* 3 06/25/2016 10/14/2017 Sig: TAKE ONE TABLET BY MOUTH ONCE DAILY Disc: Reason for discontinue is not on file. Disposition: Return in about 1 year (around 10/14/2018). Follow-up and Disposition History Recorded Encounter Status:Closed by JAVID TUTTLE PA-C on 10/14/17 RENAL PROFILE Collected: 10/12/2017 Status: F Source: [place] 4:41 PM [facility] REPOSITORY TYPE CODE TESTS RESULT OUT OF RANGE REFERENCE UNITS LAB L501.0100 74-106 mg/dL Normal GLU 90 Result Comment: Please note revised GLUCOSE reference range effective 2017. LAB L501.1000 7-18 mg/dL High BUN 34 LAB L501.1100 0.70-1.30 mg/dL High CREAT,SERUM 1.36 Result Comment: The validity of the calculated GFR AND GFRAA in patients over 70 years has not been determined. Clinical correlation is essential. LAB L501.1110 >60 mL/min Low EST GFR 55 Result Comment: Non- GFR Calc LAB L501.1115 >60 mL/min Normal EST GFR - AA 66 Result Comment: GFR Calc LAB L501.1300 10-20 RATIO High BUN/CRE 25.0 LAB L501.1800 3.2-5.0 g/dL Normal ALB 3.4 LAB L501.2200 8.5-10.1 mg/dL CA Normal 8.5 LAB L501.2300 2.5-4.9 mg/dL Normal PHOS 3.0 LAB L501.5300 136-145 mmol/L NA Normal 144 LAB L501.5600 3.5-5.1 mmol/L K Normal 4.2 LAB L501.5900 98-107 mmol/L High CL 110 LAB L501.6100 21.0-32.0 mmol/L Normal CO2 27.0 Performed By: #### L500.3600 #### [facility] [address] [place], [address] KIDNEY AND BLADDER Observed: 2017 Status: F Source: [place] 10:03 AM [facility] REPOSITORY [facility] Imaging Services [address] [place] [address] Kidney and Bladder MR#: [id number] Acct: [id number] Name: ERICKA SHELDON Rep #: [id number] : 1945 M 72 From: Blayne Valle MD PCP: Lorne CHAUDHARY,Wilbert Longo Status: REG CLI Study: Kidney and Bladder Date of Exam: 08/27/17 Exam# [id number] Ordering Dr: Rosalia Brizuela DO STUDY: RENAL ULTRASOUND - COMPLETE REASON FOR EXAM: Male, 72 years old. CKD 3 TECHNIQUE: Ultrasound evaluation of the kidneys was performed with real-time and static michel-scale imaging. COMPARISON: None. FINDINGS: RIGHT KIDNEY: Normal location of the right kidney, which is normal in size. The right kidney measures 10.7 x 5.1 x 5.5 cm. There is a normal cortex of the right kidney. The renal cortex measures 1.7 cm. There is no right renal mass or cyst. There are no right renal calculi. There is no right hydronephrosis. DISTAL RIGHT URETER: There is non-visualization of the distal right ureter. There is no demonstrated right ureterovesical junction calculus. There is no demonstrated right ureteral jet. LEFT KIDNEY: Normal location of the left kidney, which is normal in size. The left kidney measures 10.9 x 5.3 x 4.8 cm. There is a normal cortex of the left kidney. The renal cortex measures 1.3 cm. There is no left renal mass or cyst. There are no left renal calculi. There is no left hydronephrosis. DISTAL LEFT URETER: There is non-visualization of the distal left ureter. There is no demonstrated left ureterovesical junction calculus. There is no demonstrated left ureteral jet. AORTA: There is no elongation or tortuosity acute of the abdominal aorta. I.V.C.: The IVC is obscured. BLADDER: The distended urinary bladder has a volume of 32 ml. There is a normal wall thickness of the distended urinary bladder. There is no demonstrated mass within the urinary bladder. There are no demonstrated bladder calculi. US/Kidney and Bladder IMPRESSION: Normal ultrasound of the kidneys and urinary bladder. Electronically Signed: Blayne Valle MD at 21:07 EDT , Service support , CC: Rosalia Brizuela DO; Wilbert Pradhan MD Meat Cooler: Signed CBC W/DIFF, AUTOMATED Collected: 08/12/2017 Status: F Source: [place] 2:10 PM [facility] REPOSITORY TYPE CODE TESTS RESULT OUT OF RANGE REFERENCE UNITS LAB L100.1000 4.4-11.0 K/mm3 Low WBC 4.2 LAB L100.1200 4.6-6.2 M/mm3 Low RBC 4.58 LAB L100.1300 13.0-16.5 g/dl Low HGB 10.1 LAB L100.1400 40-54 % Low HCT 36.5 LAB L100.1500 80-94 fL Low MCV 79.7 LAB L100.1600 27.0-32.0 pg Low MCH 22.1 LAB L100.1700 32-36 g/gl Low MCHC 27.7 LAB L100.1810 11.6-14.6 % High RDW CV 28.1 LAB L100.1820 35.1-43.9 fl High RDW SD 77.9 LAB L100.1900 150-450 K/mm3 Normal PLT 197 LAB L100.2000 6.2-12.0 fl Normal MPV 9.9 LAB L100.2100 47-70 % Normal NEUT% 60.7 LAB L100.2200 19-41 % Normal LY% 24.1 LAB L100.2300 0-10 % High MONO% 11.0 LAB L100.2400 0-5 % Normal EO% 3.3 LAB L100.2500 0-1 % Normal BASO% 0.7 LAB L100.2550 0.0-0.9 % Normal IM GRAN % 0.200 Result Comment: IG% - Immature Granulocytes (promyelocytes, myelocytes and metamyelocytes) > 1% indicates that a LEFT SHIFT is Present. LAB L100.2620 2.0-7.7 X10 3/uL Absolute Normal Neut 2.5 LAB L100.2720 0.83-4.51 X10 3/ul Absolute Normal Lymph 1.01 LAB L100.7200 HOME CELLS Normal RARE LAB L100.7300 ANISO Normal 2+ LAB L100.8000 ACANTHOCYTE Normal RARE LAB L100.8200 OVALOCYTE Normal 1+ Performed By: #### L100.0100 #### [facility] [address] [place], [address] COMPREHENSIVE METABOLIC Collected: 08/12/2017 Status: F Source: [facility] 2:10 PM [facility] REPOSITORY TYPE CODE TESTS RESULT OUT OF RANGE REFERENCE UNITS LAB L501.0100 74-106 mg/dL Normal GLU 105 Result Comment: Fasting Glucose result from 100 to 125 mg/dL suggests IMPAIRED HOMEOSTASIS per A.D.A. criteria. Please note revised GLUCOSE reference range effective 2017. LAB L501.1000 7-18 mg/dL High BUN 29 LAB L501.1100 0.70-1.30 mg/dL High CREAT,SERUM 1.31 Result Comment: The validity of the calculated GFR AND GFRAA in patients over 70 years has not been determined. Clinical correlation is essential. LAB L501.1110 >60 mL/min Low EST GFR 57 Result Comment: Non- GFR Calc LAB L501.1115 >60 mL/min Normal EST GFR - AA 69 Result Comment: GFR Calc LAB L501.1300 10-20 RATIO High BUN/CRE 22.1 LAB L501.1500 6.4-8.2 g/dL T Normal PROT 6.5 LAB L501.1800 3.2-5.0 g/dL Normal ALB 3.5 LAB L501.1950 2.2-4.2 g/dL Normal GLOB 3.0 LAB L501.2000 0.9-2.4 RATIO Normal A/G 1.2 LAB L501.2200 8.5-10.1 mg/dL Low CA 8.0 LAB L501.4100 15-37 U/L Normal AST 20 LAB L501.4305 45-117 U/L Normal ALK P 75 LAB L501.4405 16-61 U/L Normal ALT 22 LAB L501.4600 0.20-1.00 mg/dL T Normal BILI 0.50 LAB L501.5300 136-145 mmol/L NA Normal 144 LAB L501.5600 3.5-5.1 mmol/L K Normal 4.4 LAB L501.5900 98-107 mmol/L High CL 108 LAB L501.6100 21.0-32.0 mmol/L Normal CO2 28.0 LAB L501.6200 5-15 Normal GAP 8 Performed By: #### L500.4050, L501.9520, L503.6075, L503.6150 #### [facility] [address] [facility]. [place], [place], [id number] THYROID STIM HORMONE Collected: 08/12/2017 Status: F Source: [place] ([place]) 2:10 PM [facility] REPOSITORY TYPE CODE TESTS RESULT OUT OF RANGE REFERENCE UNITS LAB L501.9520 0.358-3.74 uIU/mL Normal TSH 2.38 Performed By: #### L500.4050, L501.9520, L503.6075, L503.6150 #### [facility] [address] [place], [address] IRON BINDING Collected: 08/12/2017 Status: F Source: [place],TOTAL 2:10 PM [facility] REPOSITORY TYPE CODE TESTS RESULT OUT OF RANGE REFERENCE UNITS LAB L503.6075 250-450 ug/dL Normal TIBC 333 Performed By: #### L500.4050, L501.9520, L503.6075, L503.6150 #### [facility] [address] [place], [address] IRON Collected: 08/12/2017 Status: F Source: [place] 2:10 PM [facility] REPOSITORY TYPE CODE TESTS RESULT OUT OF RANGE REFERENCE UNITS LAB L503.6150 65-175 ug/dL Low IRON 47 Performed By: #### L500.4050, L501.9520, L503.6075, L503.6150 #### [facility] [address] [place], [address] CBC W/DIFF, AUTOMATED Collected: 07/21/2017 Status: F Source: [place] 4:50 PM [facility] REPOSITORY TYPE CODE TESTS RESULT OUT OF RANGE REFERENCE UNITS LAB L100.1000 4.4-11.0 K/mm3 Normal WBC 4.9 LAB L100.1200 4.6-6.2 M/mm3 Low RBC 4.21 LAB L100.1300 13.0-16.5 g/dl Low HGB 7.9 LAB L100.1400 40-54 % Low HCT 29.5 LAB L100.1500 80-94 fL Low MCV 70.1 LAB L100.1600 27.0-32.0 pg Low MCH 18.8 LAB L100.1700 32-36 g/gl Low MCHC 26.8 LAB L100.1810 11.6-14.6 % High RDW CV 18.6 LAB L100.1820 35.1-43.9 fl High RDW SD 48.0 LAB L100.1900 150-450 K/mm3 Normal PLT 158 LAB L100.2000 6.2-12.0 fl Normal MPV 9.1 LAB L100.2100 47-70 % Normal NEUT% 62.1 LAB L100.2200 19-41 % Normal LY% 23.7 LAB L100.2300 0-10 % Normal MONO% 9.9 LAB L100.2400 0-5 % Normal EO% 3.7 LAB L100.2500 0-1 % Normal BASO% 0.6 LAB L100.2550 0.0-0.9 % Normal IM GRAN % 0.000 Result Comment: IG% - Immature Granulocytes (promyelocytes, myelocytes and metamyelocytes) > 1% indicates that a LEFT SHIFT is Present. LAB L100.2620 2.0-7.7 X10 3/uL Normal Absolute Neut 3.0 LAB L100.2720 0.83-4.51 X10 3/ul Normal Absolute Lymph 1.15 LAB L100.4500 SMEAR Normal COMMENT Result Comment: AUTO DIFF OK Performed By: #### L100.0100, L100.9950 #### [facility] [address] [facility] [place], [place], [id number] RETIC PANEL Collected: 07/21/2017 Status: F Source: [place] 4:50 PM [facility] REPOSITORY TYPE CODE TESTS RESULT OUT OF RANGE REFERENCE UNITS LAB L101.0000 0.5-1.5 % Normal RETIC 0.90 LAB L101.0060 3.00-15.90 % IM Normal RET FRACTION 11.10 LAB L101.0090 30-35 pg Low RET-HE 16.2 LAB L101.0110 1.0-7.9 % Normal IPF 3.5 Result Comment: Low PLT + Low IPF suggest a bone marrow production disorder Low PLT + high IPF suggests peripheral destruction (e.g.ITP, TTP, HIT, DIC, autoimmune) or bone marrow recovery Trending of serial IPF measurements is recommended when evaluating for bone marrow respones Value above normal range indicates an increase in RBC cellular response from bone marrow. Performed By: #### L100.0100, L100.9950 #### [facility] [address] [place], [place], [id number] VITAMIN B12 Collected: 07/21/2017 Status: F Source: [place] 4:50 PM [facility] REPOSITORY TYPE CODE TESTS RESULT OUT OF RANGE REFERENCE UNITS LAB L503.0105 211-911 pg/mL Normal Vitamin B12 890 Performed By: #### L503.0105 #### [facility] [address] [place], [address] IRON BINDING Collected: 07/21/2017 Status: F Source: [place] [facility],TOTAL 4:50 PM [facility] REPOSITORY Order Comment: Is Patient Taking Vitamins or Folic Acid Supplements? N TYPE CODE TESTS RESULT OUT OF RANGE REFERENCE UNITS LAB L503.6075 250-450 ug/dL Normal TIBC 347 Performed By: #### L503.6075, L503.6150, L506.0250 #### [facility] [address] [place], [address] IRON Collected: 07/21/2017 Status: F Source: [place] 4:50 PM [facility] REPOSITORY Order Comment: Is Patient Taking Vitamins or Folic Acid Supplements? N TYPE CODE TESTS RESULT OUT OF RANGE REFERENCE UNITS LAB L503.6150 65-175 ug/dL Low IRON 19 Performed By: #### L503.6075, L503.6150, L506.0250 #### [facility] [address] [place], [address] FOLATES, (FOLIC ACID) Collected: 07/21/2017 Status: F Source: [place] 4:50 PM [facility] REPOSITORY Order Comment: Is Patient Taking Vitamins or Folic Acid Supplements? N TYPE CODE TESTS RESULT OUT OF RANGE REFERENCE UNITS LAB L506.0250 3.1-55.4 ng/mL Normal FOLATES 36.80 Performed By: #### L503.6075, L503.6150, L506.0250 #### [facility] [address] [place], [address] CBC W/DIFF, AUTOMATED Collected: 06/28/2017 Status: F Source: [place] 3:48 PM [facility] REPOSITORY TYPE CODE TESTS RESULT OUT OF RANGE REFERENCE UNITS LAB L100.1000 4.4-11.0 K/mm3 Normal WBC 5.6 LAB L100.1200 4.6-6.2 M/mm3 Low RBC 4.52 LAB L100.1300 13.0-16.5 g/dl Low HGB 8.3 LAB L100.1400 40-54 % Low HCT 31.6 LAB L100.1500 80-94 fL Low MCV 69.9 LAB L100.1600 27.0-32.0 pg Low MCH 18.4 LAB L100.1700 32-36 g/gl Low MCHC 26.3 LAB L100.1810 11.6-14.6 % High RDW CV 18.8 LAB L100.1820 35.1-43.9 fl High RDW SD 48.0 LAB L100.1900 150-450 K/mm3 Normal PLT 185 LAB L100.2000 6.2-12.0 fl Normal MPV 9.6 LAB L100.2100 47-70 % Normal NEUT% 62.0 LAB L100.2200 19-41 % Normal LY% 24.4 LAB L100.2300 0-10 % High MONO% 10.3 LAB L100.2400 0-5 % Normal EO% 2.7 LAB L100.2500 0-1 % Normal BASO% 0.4 LAB L100.2550 0.0-0.9 % Normal IM GRAN % 0.200 Result Comment: IG% - Immature Granulocytes (promyelocytes, myelocytes and metamyelocytes) > 1% indicates that a LEFT SHIFT is Present. LAB L100.2620 2.0-7.7 X10 3/uL Normal Absolute Neut 3.5 LAB L100.2720 0.83-4.51 X10 3/ul Normal Absolute Lymph 1.37 LAB L100.4500 Normal SMEAR COMMENT SCANNED Result Comment: AUTO DIFF OK Performed By: #### L100.0100 #### [facility] [address] [place], [address] VITAMIN D,25 HYDROXY Collected: 06/28/2017 Status: F Source: [place] 3:48 PM [facility] REPOSITORY TYPE CODE TESTS RESULT OUT OF RANGE REFERENCE UNITS LAB L506.1000 29.95-100.01 ng/mL Normal Vitamin D 55.4 25-OH Result Comment: Vitamin D 25(OH) Status Range Deficiency <20 ng/mL (50nmol/L) Insuffciency 20 - 30 ng/mL (50 - 75 nmol/L) Sufficiency 30 - 100 ng/mL (75 - 250 nmol/L) Toxicity >100 ng/mL (>250 nmol/L) Performed By: #### L506.1000 #### [facility] [address] [place], [place], [address] COMPREHENSIVE METABOLIC Collected: 06/28/2017 Status: F Source: [place] 3:48 PM [facility] REPOSITORY TYPE CODE TESTS RESULT OUT OF RANGE REFERENCE UNITS LAB L501.0100 74-106 mg/dL Normal GLU 100 Result Comment: Fasting Glucose result from 100 to 125 mg/dL suggests IMPAIRED HOMEOSTASIS per A.D.A. criteria. Please note revised GLUCOSE reference range effective 2017. LAB L501.1000 7-18 mg/dL High BUN 43 LAB L501.1100 0.70-1.30 mg/dL High CREAT,SERUM 1.51 Result Comment: The validity of the calculated GFR AND GFRAA in patients over 70 years has not been determined. Clinical correlation is essential. LAB L501.1110 >60 mL/min Low EST GFR 48 Result Comment: Non- GFR Calc LAB L501.1115 >60 mL/min Low EST GFR - AA 59 Result Comment: GFR Calc LAB L501.1300 10-20 RATIO High BUN/CRE 28.5 LAB L501.1500 6.4-8.2 g/dL T Normal PROT 6.9 LAB L501.1800 3.2-5.0 g/dL Normal ALB 3.6 LAB L501.1950 2.2-4.2 g/dL Normal GLOB 3.3 LAB L501.2000 0.9-2.4 RATIO Normal A/G 1.1 LAB L501.2200 8.5-10.1 mg/dL CA Normal 8.7 LAB L501.4100 15-37 U/L Low AST 14 LAB L501.4305 45-117 U/L Normal ALK P 80 LAB L501.4405 16-61 U/L Normal ALT 19 LAB L501.4600 0.20-1.00 mg/dL T Normal BILI 0.40 LAB L501.5300 136-145 mmol/L NA Normal 143 LAB L501.5600 3.5-5.1 mmol/L K Normal 4.3 LAB L501.5900 98-107 mmol/L CL Normal 107 LAB L501.6100 21.0-32.0 mmol/L Normal CO2 29.0 LAB L501.6200 5-15 Normal GAP 7 Performed By: #### L500.4050, L501.9520 #### [facility] [address] [place], [place], [address] THYROID STIM HORMONE Collected: 06/28/2017 Status: F Source: [place] ([place]) 3:48 PM [facility] REPOSITORY TYPE CODE TESTS RESULT OUT OF RANGE REFERENCE UNITS LAB L501.9520 0.358-3.74 uIU/mL Normal TSH 2.57 Performed By: #### L500.4050, L501.9520 #### [facility] [address] [place], [place], [address] HEPATITIS C ANTIBODIES Collected: 06/28/2017 Status: F Source: [place] 3:48 PM [facility] REPOSITORY TYPE CODE TESTS RESULT OUT OF RANGE REFERENCE UNITS LAB L3100.0650 0.0-0.9 s/co ratio Normal HEP C AB <0.1 Result Comment: Negative: < 0.8 Indeterminate: 0.8 - 0.9 Positive: > 0.9 The CDC recommends that a positive HCV antibody result be followed up with a HCV Nucleic Acid Amplification test (761511). Performed at: [address] [id number] [employer]: Rudi Vaca PhD, Phone: [phone] Performed By: #### L3100.0625 #### [facility] (refer to report for specific site) refer to report for address and phone number PROGRESS Observed: 04/20/2017 Status: COMPLETED Source: [place] 3:38 PM [facility] REPOSITORY HNO ID: [id number] Author: Gladys (Sole) Ketty Service: (none) Author Type: Nurse Practitioner Type: Progress Notes Filed: 04/20/2017 3:46 PM Note Text: Subjective HPI For the last several weeks, sore throat and phlegm in throat. Feels as though it is from his sinus drainage. Review of Systems Constitutional: Negative for chills and fever. HENT: Positive for congestion and sore throat. Negative for ear pain and sinus pain. Eyes: Negative. Respiratory: Positive for cough and sputum production. Negative for shortness of breath and wheezing. Gastrointestinal: Negative. Musculoskeletal: Negative. Neurological: Negative. Objective Physical Exam Constitutional: He is oriented to person, place, and time and well-developed, well-nourished, and in no distress. Musculoskeletal: Normal range of motion. Neurological: He is alert and oriented to person, place, and time. Gait normal. GCS score is 15. Skin: Skin is warm and dry. Psychiatric: Mood, memory, affect and judgment normal. Nursing note and vitals reviewed. BP 118/68 Pulse 60 Temp 36.6 ?C (97.8 ?F) (Tympanic) Resp 16 Wt 112 kg (247 lb) BMI 35.44 kg/m2 .Patient presents with: Nasal Congestion: drainage, sore throat x 2 weeks PAST MEDICAL HISTORY Diagnosis Date - Atrial fibrillation (HCC) 04/02/2016 - Bacteremia due to group B Streptococcus 04/02/2016 - Coronary atherosclerosis of unspecified type of vessel, la posta or graft 90% LAD --> LIZ 2007 40% RCA - Depression - Esophageal reflux - Essential hypertension, benign - Mixed hyperlipidemia Hyperlipidemia - Obstructive sleep apnea - Paroxysmal atrial fibrillation (HCC) 04/30/2016 - Prostate cancer ([facility]) 07/11/2014 PAST SURGICAL HISTORY Procedure Laterality Date - APPENDECTOMY - COLONOSCOP W/ OR W/O [facility] SPEC 2016 - EGD W/O OR W/BRUSH/WASH 07/2012 EGD - PROSTATE SURGERY HX removed on 10/04/2014 - REMOVAL OF TONSILS,<12 Y/O Tonsillectomy - REPAIR OF NASAL SEPTUM Septoplasty - STENT PLACEMENT LIZ LAD 2007 - TOTAL KNEE REPLACEMENT Knee replacement, total right - TOTAL KNEE REPLACEMENT Knee replacement, total left ALLERGIES Review of patient's allergies indicates no known allergies. MEDICATIONS rivaroxaban (XARELTO) 20 mg tablet Take 20 mg by mouth daily with dinner. FLUoxetine (PROZAC) 20 mg capsule Take 1 capsule by mouth twice daily. apixaban (ELIQUIS) 5 mg tab tab(s) Take 1 tablet by mouth twice daily. clotrimazole-betamethasone (LOTRISONE) cream Apply 1 application to affected area twice daily. TO AFFECTED AREA. metoprolol succinate ER (TOPROL XL) 200 mg 24 hr tablet Take 1 tablet by mouth once daily. furosemide (LASIX) 20 mg tablet Take 1 tablet by mouth as needed (leg swelling). clotrimazole (LOTRIMIN, CLOTRIM) 1 % cream Apply 1 application to affected area twice daily. oxybutynin ER (DITROPAN XL) 15 mg 24 hr Extended Rel Tab TAKE ONE TABLET BY MOUTH ONCE DAILY atorvastatin (LIPITOR) 40 mg tablet Take 1 tablet by mouth once daily. nitroglycerin sublingual (NITROQUICK) 0.4 mg SL tablet Dissolve 1 tablet under the tongue every 5 minutes as needed for Chest Pain. BIPAP Bilevel PAP 11/6 cmH2O, mask, tubing, filters, heated humidity, lifetime supplies. Dx: EDER Aurora-3 Fatty Acids-Vitamin E (FISH OIL) 1,000 mg cap Take 1 capsule by mouth once daily. acetaminophen (TYLENOL) 500 mg tablet Take 500 mg by mouth every 6 hours as needed for Pain. cholecalciferol (VITAMIN D-3) 2,000 unit tablet Take 2,000 Units by mouth once daily. pantoprazole DR (PROTONIX) 40 mg tablet Take 40 mg by mouth twice daily. omeprazole (PRILOSEC) 20 mg capsule Take 1 capsule by mouth twice daily. Oxiconazole Nitrate (OXISTAT) 1 % lotion apply twice daily to affected area as needed oxymetazoline (GENASAL) 0.05 % nasal spray Use 2 Sprays in the nose twice daily. PRN aspirin, enteric coated (ASPIRIN, ENTERIC COATED) 81 mg EC tablet Take 81 mg by mouth once daily. FAMILY HISTORY Problem Relation Age of Onset - Cancer Father lung - Coronary Artery Disease Brother 2 brothers s/p PCI Social History Substance Use Topics - Smoking status: Never Smoker - Smokeless tobacco: Never Used - Alcohol use No ASSESSMENT/PLAN: 1. Nasopharyngitis acute - ICD9: 460, ICD10: J00 Discussed with pt that his symptoms seem most consistent with a viral presentation such as a common cold. He is to get plenty of rest and fluids and follow up with his pcp. Gladys Hdez CNP Prescription instructions reviewed with patient as applicable. Patient advised if symptoms do not improve or if symptoms worsen sooner, to contact the office for further evaluation by either myself or their primary care physician. Potential red flag symptoms discussed with the patient. Reviewed appropriate action plan to take if red flag symptoms occur. Patient agreeable to treatment plan. Gladys Hdez CNP CNOV Observed: 04/20/2017 Status: COMPLETED Source: [place] 3:30 PM [facility] REPOSITORY Office Visit ([facility]) ERICKA SHELDON ([id number]) 1945 M Date Time Provider Department 04/20/17 3:30 PM GLADYS HDEZ (SOLE) [facility] During your visit today, we recorded the following information about you: Temperature Pulse Respiration Blood pressure 97.8 degrees 60/minute 16/minute 118/68 Weight 112 kg Gladys Hdez CNP 04/20/2017 3:46 PM Signed Subjective HPI For the last several weeks, sore throat and phlegm in throat. Feels as though it is from his sinus drainage. Review of Systems Constitutional: Negative for chills and fever. HENT: Positive for congestion and sore throat. Negative for ear pain and sinus pain. Eyes: Negative. Respiratory: Positive for cough and sputum production. Negative for shortness of breath and wheezing. Gastrointestinal: Negative. Musculoskeletal: Negative. Neurological: Negative. Objective Physical Exam Constitutional: He is oriented to person, place, and time and well-developed, well-nourished, and in no distress. Musculoskeletal: Normal range of motion. Neurological: He is alert and oriented to person, place, and time. Gait normal. GCS score is 15. Skin: Skin is warm and dry. Psychiatric: Mood, memory, affect and judgment normal. Nursing note and vitals reviewed. BP 118/68 Pulse 60 Temp 36.6 ?C (97.8 ?F) (Tympanic) Resp 16 Wt 112 kg (247 lb) BMI 35.44 kg/m2 .Patient presents with: Nasal Congestion: drainage, sore throat x 2 weeks PAST MEDICAL HISTORY Diagnosis Date - Atrial fibrillation (HCC) 04/02/2016 - Bacteremia due to group B Streptococcus 04/02/2016 - Coronary atherosclerosis of unspecified type of vessel, la posta or graft 90% LAD --ANDgt; LIZ 2008 40% RCA - Depression - Esophageal reflux - Essential hypertension, benign - Mixed hyperlipidemia Hyperlipidemia - Obstructive sleep apnea - Paroxysmal atrial fibrillation (HCC) 04/30/2016 - Prostate cancer (HCC) 07/11/2014 PAST SURGICAL HISTORY Procedure Laterality Date - APPENDECTOMY - COLONOSCOP W/ OR W/O BRSH SPEC 2001, 2016 - EGD W/O OR W/BRUSH/WASH 07/2012 EGD - PROSTATE SURGERY HX removed on 10/04/2014 - REMOVAL OF TONSILS,ANDlt;11 Y/O Tonsillectomy - REPAIR OF NASAL SEPTUM Septoplasty - STENT PLACEMENT LIZ LAD 2007 - TOTAL KNEE REPLACEMENT Knee replacement, total right - TOTAL KNEE REPLACEMENT Knee replacement, total left ALLERGIES Review of patient's allergies indicates no known allergies. MEDICATIONS rivaroxaban (XARELTO) 20 mg tablet Take 20 mg by mouth daily with dinner. FLUoxetine (PROZAC) 20 mg capsule Take 1 capsule by mouth twice daily. apixaban (ELIQUIS) 5 mg tab tab(s) Take 1 tablet by mouth twice daily. clotrimazole-betamethasone (LOTRISONE) cream Apply 1 application to affected area twice daily. TO AFFECTED AREA. metoprolol succinate ER (TOPROL XL) 200 mg 24 hr tablet Take 1 tablet by mouth once daily. furosemide (LASIX) 20 mg tablet Take 1 tablet by mouth as needed (leg swelling). clotrimazole (LOTRIMIN, CLOTRIM) 1 % cream Apply 1 application to affected area twice daily. oxybutynin ER (DITROPAN XL) 15 mg 24 hr Extended Rel Tab TAKE ONE TABLET BY MOUTH ONCE DAILY atorvastatin (LIPITOR) 40 mg tablet Take 1 tablet by mouth once daily. nitroglycerin sublingual (NITROQUICK) 0.4 mg SL tablet Dissolve 1 tablet under the tongue every 5 minutes as needed for Chest Pain. BIPAP Bilevel PAP 11/6 cmH2O, mask, tubing, filters, heated humidity, lifetime supplies. Dx: EDER Aurora-3 Fatty Acids-Vitamin E (FISH OIL) 1,000 mg cap Take 1 capsule by mouth once daily. acetaminophen (TYLENOL) 500 mg tablet Take 500 mg by mouth every 6 hours as needed for Pain. cholecalciferol (VITAMIN D-3) 2,000 unit tablet Take 2,000 Units by mouth once daily. pantoprazole DR (PROTONIX) 40 mg tablet Take 40 mg by mouth twice daily. omeprazole (PRILOSEC) 20 mg capsule Take 1 capsule by mouth twice daily. Oxiconazole Nitrate (OXISTAT) 1 % lotion apply twice daily to affected area as needed oxymetazoline (GENASAL) 0.05 % nasal spray Use 2 Sprays in the nose twice daily. PRN aspirin, enteric coated (ASPIRIN, ENTERIC COATED) 81 mg EC tablet Take 81 mg by mouth once daily. FAMILY HISTORY Problem Relation Age of Onset - Cancer Father lung - Coronary Artery Disease Brother 2 brothers s/p PCI Social History Substance Use Topics - Smoking status: Never Smoker - Smokeless tobacco: Never Used - Alcohol use No ASSESSMENT/PLAN: 1. Nasopharyngitis acute - ICD9: 460, ICD10: J00 Discussed with pt that his symptoms seem most consistent with a viral presentation such as a common cold. He is to get plenty of rest and fluids and follow up with his pcp. Gladys Hdez CNP Prescription instructions reviewed with patient as applicable. Patient advised if symptoms do not improve or if symptoms worsen sooner, to contact the office for further evaluation by either myself or their primary care physician. Potential red flag symptoms discussed with the patient. Reviewed appropriate action plan to take if red flag symptoms occur. Patient agreeable to treatment plan. SOLE Mata CNP 04/20/2017 3:44 PM Signed [facility] PATIENT INFO COMMON COLD OVERVIEW The common cold is one of the most frequent illnesses in the [place]. Although most colds are mild and resolve within a short time period, colds cost billions of dollars per year, mostly due to lost time at work and school. COMMON COLD CAUSES The common cold is a group of symptoms caused by one of a large number of viruses. Rhinoviruses cause the greatest number of colds; there are more than 100 different varieties of rhinovirus. Most viruses cause a person to be ill only once. However, due to the large number of viruses, a person can have a cold multiple times throughout his or her lifetime. The average adult experiences two to three colds per year, while children average 8 to 12 colds per year. Colds are transmitted from [id number]-ml-nlmjiv. Less often, the virus can be transmitted by touching a surface. Direct contact ? People with colds typically carry the cold virus on their hands. The virus may remain alive on the skin and capable of infecting another person for at least two hours. Thus, if a sick person shakes someone's hand and that individual then touches his eye, nose, or mouth, the virus can be transmitted and later infect that person. Infection from particles on surfaces ? Some cold viruses can live on surfaces (such as a counter top, door handle, or phone) for several hours. Inhaling viral particles ? Droplets containing viral particles can be breathed, coughed, or sneezed into the air by a person with a cold. The virus can be transmitted to others if another person is standing close (a few feet) and the droplet touches that person?s eye, nose, or mouth. Covering the mouth while coughing or sneezing greatly reduces this risk. Most cold viruses are not spread by saliva. Thus, kissing itself is not likely to transmit the common cold, but close direct contact can. Colds are not caused by cold climates or being exposed to cold air. However, some types of virus cause more colds during certain seasons (eg, fall and winter versus spring). COMMON COLD SIGNS AND SYMPTOMS The common cold usually causes nasal congestion, runny nose, and sneezing. A sore throat may be present on the first day but usually resolves quickly. If a cough occurs, it generally develops on about the fourth or fifth day of symptoms, typically when congestion and runny nose are usually resolving. COMMON COLD COMPLICATIONS In most cases, colds do not cause serious illness. Most colds last for three to seven days, although many people continue to have symptoms (coughing, sneezing, congestion) for up to two weeks. Some viruses that cause the common cold can also depress the immune system or cause swelling in the lining of the nose or airways; this can, in turn, lead to a new viral infection or bacterial infection. ? One of the more common complications is sinusitis, which is usually caused by viruses and rarely (about 2 percent of the time) by bacteria. However, it can be difficult to distinguish bacterial sinusitis from sinusitis caused by a cold because the signs and symptoms can be similar Having thick or yellow to green-colored nasal discharge does not mean that bacterial sinusitis has developed; discolored nasal discharge is a normal phase of the common cold. ? Lower respiratory infections, such as pneumonia or bronchitis, may develop following a cold. ? Infection of the middle ear, or otitis media, can accompany or follow a cold. ? The influenza virus, which causes the flu, can also cause features similar to those of a cold. However, the flu usually causes other signs and symptoms (fever, body aches) and is more serious than a cold. COMMON COLD TREATMENT There is no specific treatment for the viruses that cause the common cold. Most treatments are aimed at relieving some of the symptoms of the cold, but do not shorten or cure the cold. Antibiotics are not useful for treating the common cold; antibiotics are only used to treat illnesses caused by bacteria, not viruses. The symptoms of a cold will resolve over time, even without any treatment. The following are treatments that may reduce the symptoms caused by the common cold. People with underlying medical conditions and those who use other gxvl-qmt-mvnjdhq or prescription medications should speak with their healthcare provider or pharmacist to ensure that it is safe to use these treatments. Runny nose and nasal congestion ? Runny nose and congestion may improve with the use of decongestants. Pseudoephedrine is a decongestant that can improve nasal congestion. Most drugstores in the [facility] carry pseudoephedrine behind the counter, so it must be requested from the pharmacist (a prescription is not required). Antihistamines such as diphenhydramine (Benadryl?) may also help, but can cause side effects such as drowsiness and drying of the eyes, nose, and mouth. Nasal inhalers, including ipratropium bromide (Atrovent?, available by prescription) may relieve runny nose and sneezing while cromolyn sodium (NasalCrom?, a non-prescription medicine) may relieve runny nose, cough, and sneezing. Other nasal sprays such an oxymetazoline (Afrin? and others) can also give temporary relief of nasal congestion. However, these sprays should never be used for more than two to three days; use for more than three days use can worsen congestion. Nasal irrigation and saline sprays ? Rinsing the nose with a salt-water (saline) solution is called nasal irrigation or nasal lavage. Saline is also available in a standard nasal spray, although this is not as effective as using larger amounts of water in an irrigation. Nasal irrigation is particularly useful for treating drainage down the back of the throat, sneezing, nasal dryness, and congestion. The treatment helps by rinsing out allergens and irritants from the nose. Saline rinses also clean the nasal lining and can be used before applying sprays containing medications, to get a better effect from the medication. Nasal lavage with warmed saline can be performed as needed, once per day, or twice daily for increased symptoms. Nasal lavage carries few risks when performed correctly. Saline nasal sprays and irrigation kits can be purchased [id number]. Saline mixes can also be purchased or patients can make their own solution. A variety of devices, including bulb syringes, Neti pots, and bottle sprayers, may be used to perform nasal lavage; instructions for nasal lavage are provided in the table. At least 200 mL (about 3/4 cup) of fluid is recommended for each nostril. Sore throat and headache ? Sore throat and headache are best treated with a mild pain reliever such as acetaminophen (Tylenol?) or a non-steroidal anti-inflammatory agent such as ibuprofen or naproxen (Motrin? or Aleve?). Cough ? Common cough medicine ingredients include guaifenesin and dextromethorphan; these are often combined with other medications in qumg-nho-korblzu cold formulas. However, the benefit of cough medicines is likely to be small to non-existent. In clinical trials, cough suppressants were no more effective in reducing the duration or severity of coughing due to cold than a placebo (a non-drug substitute). Antibiotics ? Antibiotics should not be used to treat an uncomplicated common cold. As noted above, colds are caused by viruses. Antibiotics treat bacterial, not viral infections. Alternative treatments ? Heated, humidified air can improve symptoms of nasal congestion and runny nose, and causes few to no side effects. PREVENTION Hand washing is an essential and highly effective way to prevent the spread of infection. Hands should be wet with water and plain soap, and rubbed together for 15 to 30 seconds. Special attention should be paid to the fingernails, between the fingers, and the wrists. Hands should be rinsed thoroughly, and dried with a single use towel. Alcohol-based hand rubs are a good alternative for disinfecting hands if a sink is not available. Hand rubs should be spread over the entire surface of hands, fingers, and wrists until dry, and may be used several times. These rubs can be used repeatedly without skin irritation or loss of effectiveness. Hand rubs are available as a liquid or wipe in small, portable sizes that are easy to carry in a pocket or handbag. When a sink is available, visibly soiled hands should be washed with soap and water. Hands should be washed before preparing food and eating, and after coughing, blowing the nose, or sneezing. While it is not always possible to limit contact with people who may be infected with a cold, touching the eyes, nose, or mouth after direct contact should be avoided when possible. In addition, tissues should be used to cover the mouth when sneezing or coughing. These used tissues should be disposed of promptly. Sneezing/coughing into the sleeve of one's clothing (at the inner elbow) is another means of containing sprays of saliva and secretions and does not contaminate the hands. SUMMARY ? The average adult experiences two to three colds per year, while children average 8 to 12 colds per year. ? Symptoms of the common cold usually include nasal congestion, runny nose, and sneezing. They typically last for three to seven days, although many people have symptoms (coughing, sneezing, congestion) for up to two weeks. ? People with colds typically carry the cold virus on their hands, where it can infect another person for at least two hours. Some cold viruses can live on surfaces (such as a counter top, door handle, or phone) for several hours. Droplets containing viral particles can be breathed, coughed, or sneezed into the air. ? There is no specific treatment for colds. Treatment may reduce some of the symptoms of the cold, but do not shorten or cure the cold. Antibiotics are not useful for treating the common cold. Hand washing can prevent the spread of infection. Hands should be wet with water and plain soap, and rubbed together for 15 to 30 seconds. Alcohol-based hand rubs are a good alternative for disinfecting hands if a sink is not available Referring Provider: SELF [[id number]] Allergies As of Date: 04/20/2017 (No Known Allergies) Date Reviewed: 04/20/2017 Reviewed by: Hao Echavarria Ma - Fully Assessed Reason for Visit: Nasal Congestion [235] Cmt: drainage, sore throat x 2 weeks Primary Visit Diagnosis:Nasopharyngitis acute [J00] Prescriptions as of 04/20/2017 Sig: RIVAROXABAN 20 MG TABLET Take 20 mg by mouth daily wit* FLUOXETINE 20 MG CAPSULE Take 1 capsule by mouth twice* APIXABAN 5 MG TABLET Take 1 tablet by mouth twice * CLOTRIMAZOLE-BETAMETHASONE 1 * Apply 1 application to affect* METOPROLOL SUCCINATE ER 200 M* Take 1 tablet by mouth once d* FUROSEMIDE 20 MG TABLET Take 1 tablet by mouth as nee* CLOTRIMAZOLE 1 % TOPICAL CREAM Apply 1 application to affect* OXYBUTYNIN CHLORIDE ER 15 MG * TAKE ONE TABLET BY MOUTH ONCE* ATORVASTATIN 40 MG TABLET Take 1 tablet by mouth once d* NITROGLYCERIN 0.4 MG SUBLINGU* Dissolve 1 tablet under the t* BIPAP Bilevel PAP 11/6 cmH2O, mask,* OMEGA-3 FATTY ACIDS-VITAMIN E* Take 1 capsule by mouth once * ACETAMINOPHEN 500 MG TABLET Take 500 mg by mouth every 6 * CHOLECALCIFEROL (VITAMIN D3) * Take 2,000 Units by mouth onc* PANTOPRAZOLE 40 MG TABLET,DEL* Take 40 mg by mouth twice mariah* OMEPRAZOLE 20 MG CAPSULE,JORDAN* Take 1 capsule by mouth twice* OXICONAZOLE 1 % LOTION apply twice daily to affected* OXYMETAZOLINE 0.05 % NASAL SP* Use 2 Sprays in the nose twic* ASPIRIN 81 MG TABLET,DELAYED * Take 81 mg by mouth once selma* Medication notes this encounter ACETAMINOPHEN 500 MG TABLET >> Hao Echavarria Ma 04/20/2017 3:29 PM >> HAO ECHAVARRIA MA Apr 20, 2017 3:29 PM done >> Hao Echavarria Ma 04/20/2017 3:31 PM >> HAO ECHAVARRIA MA Apr 20, 2017 3:31 PM Problem List As Of Date 04/20/2017 Noted Resolved Esophageal reflux [K21.9] INVALID FOR* More... Sleep apnea [G47.30] INVALID FOR* More... Left ventricular hypertrophy [I51.7] INVALID FOR* Nasal septal deviation [J34.2] INVALID FOR* Tinnitus [H93.19] INVALID FOR* Sinus congestion [R09.81] INVALID FOR*04/18/2013 Venous stasis of lower extremity [I87.8] INVALID FOR* Fever [R50.9] INVALID FOR*10/28/2013 UTI (urinary tract infection) [N39.0] INVALID FOR*10/28/2013 Mass of kidney [N28.89] INVALID FOR*10/28/2013 Mass of left kidney [N28.89] INVALID FOR*06/12/2014 Mood disorder (HCC) [F39] INVALID FOR* Chest pain [R07.9] INVALID FOR*06/12/2014 Elevated PSA [R97.20] INVALID FOR*02/19/2015 BPH (benign prostatic hyperplasia) [N40.0] INVALID FOR* UTI (lower urinary tract infection) [N39.0] INVALID FOR*06/12/2014 Lower urinary tract symptoms (LUTS) [R39.9] INVALID FOR* Elevated prostate specific antigen (PSA) [R97.2*INVALID FOR*06/12/2014 Prostate cancer (HCC) [C61] INVALID FOR* S/P PCI to LAD 2008 for stable angina [Z95.5] INVALID FOR* Essential hypertension [I10] INVALID FOR* Coronary artery disease involving la posta hall*INVALID FOR* Stress incontinence, male [N39.3] INVALID FOR* Urge incontinence [N39.41] INVALID FOR* KODY (acute kidney injury) (HCC) [N17.9] INVALID FOR*04/03/2016 Sepsis (HCC) [A41.9] INVALID FOR*04/02/2016 Cellulitis and abscess of leg [L03.119, L02.419]INVALID FOR*08/18/2016 Bacteremia due to group B Streptococcus [R78.81]INVALID FOR*04/30/2016 CKD (chronic kidney disease) stage 3, GFR 30-59*INVALID FOR* BiPAP (biphasic positive airway pressure) depen*INVALID FOR* Paroxysmal atrial fibrillation (HCC) [I48.0] INVALID FOR* Moderate episode of recurrent major depressive *INVALID FOR* Other instructions from your clinician: [facility] PATIENT INFO COMMON COLD OVERVIEW The common cold is one of the most frequent illnesses in the [place]. Although most colds are mild and resolve within a short time period, colds cost billions of dollars per year, mostly due to lost time at work and school. COMMON COLD CAUSES The common cold is a group of symptoms caused by one of a large number of viruses. Rhinoviruses cause the greatest number of colds; there are more than 100 different varieties of rhinovirus. Most viruses cause a person to be ill only once. However, due to the large number of viruses, a person can have a cold multiple times throughout his or her lifetime. The average adult experiences two to three colds per year, while children average 8 to 12 colds per year. Colds are transmitted from ayizir-vw-aevvuw. Less often, the virus can be transmitted by touching a surface. Direct contact ? People with colds typically carry the cold virus on their hands. The virus may remain alive on the skin and capable of infecting another person for at least two hours. Thus, if a sick person shakes someone's hand and that individual then touches his eye, nose, or mouth, the virus can be transmitted and later infect that person. Infection from particles on surfaces ? Some cold viruses can live on surfaces (such as a counter top, door handle, or phone) for several hours. Inhaling viral particles ? Droplets containing viral particles can be breathed, coughed, or sneezed into the air by a person with a cold. The virus can be transmitted to others if another person is standing close (a few feet) and the droplet touches that person?s eye, nose, or mouth. Covering the mouth while coughing or sneezing greatly reduces this risk. Most cold viruses are not spread by saliva. Thus, kissing itself is not likely to transmit the common cold, but close direct contact can. Colds are not caused by cold climates or being exposed to cold air. However, some types of virus cause more colds during certain seasons (eg, fall and winter versus spring). COMMON COLD SIGNS AND SYMPTOMS The common cold usually causes nasal congestion, runny nose, and sneezing. A sore throat may be present on the first day but usually resolves quickly. If a cough occurs, it generally develops on about the fourth or fifth day of symptoms, typically when congestion and runny nose are usually resolving. COMMON COLD COMPLICATIONS In most cases, colds do not cause serious illness. Most colds last for three to seven days, although many people continue to have symptoms (coughing, sneezing, congestion) for up to two weeks. Some viruses that cause the common cold can also depress the immune system or cause swelling in the lining of the nose or airways; this can, in turn, lead to a new viral infection or bacterial infection. ? One of the more common complications is sinusitis, which is usually caused by viruses and rarely (about 2 percent of the time) by bacteria. However, it can be difficult to distinguish bacterial sinusitis from sinusitis caused by a cold because the signs and symptoms can be similar Having thick or yellow to green-colored nasal discharge does not mean that bacterial sinusitis has developed; discolored nasal discharge is a normal phase of the common cold. ? Lower respiratory infections, such as pneumonia or bronchitis, may develop following a cold. ? Infection of the middle ear, or otitis media, can accompany or follow a cold. ? The influenza virus, which causes the flu, can also cause features similar to those of a cold. However, the flu usually causes other signs and symptoms (fever, body aches) and is more serious than a cold. COMMON COLD TREATMENT There is no specific treatment for the viruses that cause the common cold. Most treatments are aimed at relieving some of the symptoms of the cold, but do not shorten or cure the cold. Antibiotics are not useful for treating the common cold; antibiotics are only used to treat illnesses caused by bacteria, not viruses. The symptoms of a cold will resolve over time, even without any treatment. The following are treatments that may reduce the symptoms caused by the common cold. People with underlying medical conditions and those who use other fsth-qup-vdwjanw or prescription medications should speak with their healthcare provider or pharmacist to ensure that it is safe to use these treatments. Runny nose and nasal congestion ? Runny nose and congestion may improve with the use of decongestants. Pseudoephedrine is a decongestant that can improve nasal congestion. Most drugstores in the [place] carry pseudoephedrine behind the counter, so it must be requested from the pharmacist (a prescription is not required). Antihistamines such as diphenhydramine (Benadryl?) may also help, but can cause side effects such as drowsiness and drying of the eyes, nose, and mouth. Nasal inhalers, including ipratropium bromide (Atrovent?, available by prescription) may relieve runny nose and sneezing while cromolyn sodium (NasalCrom?, a non-prescription medicine) may relieve runny nose, cough, and sneezing. Other nasal sprays such an oxymetazoline (Afrin? and others) can also give temporary relief of nasal congestion. However, these sprays should never be used for more than two to three days; use for more than three days use can worsen congestion. Nasal irrigation and saline sprays ? Rinsing the nose with a salt-water (saline) solution is called nasal irrigation or nasal lavage. Saline is also available in a standard nasal spray, although this is not as effective as using larger amounts of water in an irrigation. Nasal irrigation is particularly useful for treating drainage down the back of the throat, sneezing, nasal dryness, and congestion. The treatment helps by rinsing out allergens and irritants from the nose. Saline rinses also clean the nasal lining and can be used before applying sprays containing medications, to get a better effect from the medication. Nasal lavage with warmed saline can be performed as needed, once per day, or twice daily for increased symptoms. Nasal lavage carries few risks when performed correctly. Saline nasal sprays and irrigation kits can be purchased [id number]. Saline mixes can also be purchased or patients can make their own solution. A variety of devices, including bulb syringes, Neti pots, and bottle sprayers, may be used to perform nasal lavage; instructions for nasal lavage are provided in the table. At least 200 mL (about 3/4 cup) of fluid is recommended for each nostril. Sore throat and headache ? Sore throat and headache are best treated with a mild pain reliever such as acetaminophen (Tylenol?) or a non-steroidal anti-inflammatory agent such as ibuprofen or naproxen (Motrin? or Aleve?). Cough ? Common cough medicine ingredients include guaifenesin and dextromethorphan; these are often combined with other medications in xdwa-ltt-xeshcat cold formulas. However, the benefit of cough medicines is likely to be small to non-existent. In clinical trials, cough suppressants were no more effective in reducing the duration or severity of coughing due to cold than a placebo (a non-drug substitute). Antibiotics ? Antibiotics should not be used to treat an uncomplicated common cold. As noted above, colds are caused by viruses. Antibiotics treat bacterial, not viral infections. Alternative treatments ? Heated, humidified air can improve symptoms of nasal congestion and runny nose, and causes few to no side effects. PREVENTION Hand washing is an essential and highly effective way to prevent the spread of infection. Hands should be wet with water and plain soap, and rubbed together for 15 to 30 seconds. Special attention should be paid to the fingernails, between the fingers, and the wrists. Hands should be rinsed thoroughly, and dried with a single use towel. Alcohol-based hand rubs are a good alternative for disinfecting hands if a sink is not available. Hand rubs should be spread over the entire surface of hands, fingers, and wrists until dry, and may be used several times. These rubs can be used repeatedly without skin irritation or loss of effectiveness. Hand rubs are available as a liquid or wipe in small, portable sizes that are easy to carry in a pocket or handbag. When a sink is available, visibly soiled hands should be washed with soap and water. Hands should be washed before preparing food and eating, and after coughing, blowing the nose, or sneezing. While it is not always possible to limit contact with people who may be infected with a cold, touching the eyes, nose, or mouth after direct contact should be avoided when possible. In addition, tissues should be used to cover the mouth when sneezing or coughing. These used tissues should be disposed of promptly. Sneezing/coughing into the sleeve of one's clothing (at the inner elbow) is another means of containing sprays of saliva and secretions and does not contaminate the hands. SUMMARY ? The average adult experiences two to three colds per year, while children average 8 to 12 colds per year. ? Symptoms of the common cold usually include nasal congestion, runny nose, and sneezing. They typically last for three to seven days, although many people have symptoms (coughing, sneezing, congestion) for up to two weeks. ? People with colds typically carry the cold virus on their hands, where it can infect another person for at least two hours. Some cold viruses can live on surfaces (such as a counter top, door handle, or phone) for several hours. Droplets containing viral particles can be breathed, coughed, or sneezed into the air. ? There is no specific treatment for colds. Treatment may reduce some of the symptoms of the cold, but do not shorten or cure the cold. Antibiotics are not useful for treating the common cold. Hand washing can prevent the spread of infection. Hands should be wet with water and plain soap, and rubbed together for 15 to 30 seconds. Alcohol-based hand rubs are a good alternative for disinfecting hands if a sink is not available Encounter Status:Closed by GLADYS HDEZ CNP on 04/20/17 ALLERGIES ALLERGIES DATE TYPE / CODE NAME / CODE REACTION SEVERITY SOURCE Drug NO KNOWN [facility] Class/69872 ALLERGIES Main [place] 1003(SNOMED Repository CT) ENCOUNTERS ENCOUNTERS ADMIT/DISCHARGE ACCOUNT ADMITTING ENCOUNTER LOCATION SOURCE NUMBER CLASS 03/02/2018 [id number] [facility] ing:LABSPEC Repository 02/16/2018/02/17/19 [id number] Ambulatory [address] Repository 12/15/2017 [id number] [facility] ing:POLAB3 Repository 12/09/2017/12/14/19 [id number] Ambulatory [address] Repository 10/14/2017/10/15/19 [id number] Ambulatory [address] Repository 10/14/2017/10/16/19 [id number] Ambulatory [address] Repository 10/12/2017 [id number] [facility] ing:LAB Repository 2017 [id number] [facility] ing:US Repository 08/12/2017 [id number] [facility] ing:POLAB3 Repository 07/21/2017 [id number] [facility] ing:POLAB3 Repository 06/28/2017 [id number] [facility] ing:POLAB3 Repository 04/26/2017/04/27/[id number] Anglea Ambulatory [facility] [address] [address] VELARoom: Hospitals [id number]: Repository [id number] 04/20/2017/04/22/19 [id number] Ambulatory [address] Repository 03/18/2017/03/18/[id number] Angela Ambulatory [facility]:[place] [address] [place] VELARoom: Hospitals [id number]: Repository [id number] PAYERS PAYERS ENCOUNTER GUARANTOR PAYER SUBSCRIBER SOURCE 03/02/2018 ERICKA [id number] Primary ERICKA BENDER: [place] [facility] Insurance:MEDICARE [id number] [address]Ayj: (216) Number: Repository [phone] () [id number] Date:2018-03-02 03/02/2018 Secondary ERICKA D FROYLANEDOB: [place] Insurance:MEDICAL [id number] Number: Repository [id number] Date:1053-55-18PR [address] [address]WA: 03/02/2018 Tertiary NOT GIVENUNK [place] Insurance:SELF PAY [facility] Number: Effective Repository Date:2018-03-02 12/15/2017 ERICKA D [id number] Primary ERICKA D KILEDOB: [place] [address] Insurance:MEDICARE [id number] [address]Ipn: (216) Number: Repository [phone] () [id number] Date:2017-12-15 12/15/2017 Secondary ERICKA D FROYLANEDOB: [place] Insurance:AETNA SR [id number]ository [id number] Date:[id number] SENIOR SUPPLEMENT [address] [place] [phone]: 12/15/2017 Tertiary NOT GIVENUNK [place] Insurance:SELF PAY [facility] Number: Effective Repository Date:2017-12-15 10/12/2017 ERICKA D [id number] Primary ERICKA D KILEDOB: [place] [address] Insurance:MEDICARE [id number] [address]Cai: (216) Number: Repository [phone] () [id number] Date:2017-10-12 10/12/2017 Secondary ERICKA D KILEDOB: [place] Insurance:AETNA SR [id number] Number: Repository [id number] Date:[id number] SENIOR SUPPLEMENT [id number] [place] [phone]: 10/12/2017 Tertiary NOT GIVENUNK [place] Insurance:SELF PAY [facility] Number: Effective Repository Date:2017-10-12 2017 ERICKA [id number] Primary ERICKA D FROYLANEDOB: [place] [address] Insurance:MEDICARE [id number] [address]Eyv: (216) Number: Repository [phone] () [id number] Date:2017-08-25 2017 Secondary ERICKA D FROYLANEDOB: [place] Insurance:AETNA SR [id number] Number: Repository [id number] Date:8571-83-48JPYBY SENIOR SUPPLEMENT [id number] [place] [phone]: 2017 Tertiary NOT GIVENUNK [place] Insurance:SELF PAY [facility] Number: Effective Repository Date:2017-08-25 08/12/2017 ERICKA D [id number] Primary ERICKA D FROYLANEDOB: [place] [address] Insurance:MEDICARE [id number] [address]Ors: (419) Number: Repository [phone] () [id number] Date:2017-08-05 08/12/2017 Secondary ERICKA D FROYLANEDOB: [place] Insurance:AETNA SR [id number] [facility] Number: Repository [id number] Date:4591-96-34BHPIN SENIOR SUPPLEMENT [id number] [place] [address]FA: 08/12/2017 Tertiary NOT GIVENUNK [place] Insurance:SELF PAY [facility] Hospital Number: Effective Repository Date:2017-08-05 07/21/2017 ERICKA D [id number] Primary ERICKA D FROYLANEDOB: [place] [address] Insurance:MEDICARE [id number] [address]Sdy: (419) Number: Repository [phone] () [id number] Date:2017-07-21 07/21/2017 Secondary ERICKA D KILEDOB: [place] Insurance:AETNA [id number] [facility] Number: Repository [id number] Date:[id number] SENIOR SUPPLEMENT [address] [address], [place] [address]BK: 07/21/2017 Tertiary NOT GIVENUNK [place] Insurance:SELF PAY [facility] Number: Effective Repository Date:2017-07-21 06/28/2017 ERICKA [id number] Primary ERICKA GALEANOEDOB: [place] [address] Insurance:MEDICARE [id number], [place] [facility] [address]Fua: (419) Number: Repository [phone] () [id number] Date:2017-06-28 06/28/2017 Secondary ERICKA GALEANOEDOB: [place] Insurance:AETNA [id number] St[facility] Number: Repository [id number] Date:[id number] SENIOR SUPPLEMENT INSP[id number] [place] [phone]: 06/28/2017 Tertiary NOT GIVENUNK [place] Insurance:SELF PAY [facility] Effective Repository Date:2017-06-28 04/26/2017 ERICKA FROYLANEDOB: Primary ERICKA STEINEROB: University Insurance:MedicarePol [id number] [facility] UNIT icy Number: 9 [facility] Repository [address] [place] [address] [id number] [address] [place] [address]Msa: ([phone]) Date:Plan Name:[facility] [address]Frh: [phone] (HP) A (HP) 04/26/2017 Secondary ERICKA FROYLANEDOB: [place] Insurance:MedicarePol [id number] [facility] icy Number: 9 [facility] Repository [id number] [address], Date:Plan Name:[facility] [address]Pst: B (HP) 04/26/2017 Tertiary ERICKA FROYLANEDOB: [place] [facility] [id number] Hospitals Number: 9 [address] Repository [id number] [address], Date:Plan Name:[facility] [address]Rco: (HP) 03/18/2017 ERICKA STEINEROB: Primary ERICKA BENDER: [place] Insurance:MedicarePol [id number] Hospitals [address] UN[address] icy Number: 9 [address] [place] [id number] [address], [address]Uqk: ([phone]) Date:Plan Name:[place] [id number]: [phone] (HP) A (HP) 03/18/2017 Secondary ERICKA BENDER: [place] Insurance:MedicarePol [id number] [facility] icy Number: 9 [address] [facility] [id number] [address], Date:Plan Name:[facility] [address]Afw: B (HP) 03/18/2017 Tertiary ERICKA BENDER: [place] Insurance:Commercial [id number] [facility] olicy Number: 9 [address] [facility] [id number] [address], Date:Plan Name:[facility] [address]Dys: (HP)
== END ==
PROVIDERS: Family Provider Family Medicine Geriatric Medicine; PCP Family Medicine Geriatric Medicine; Referring Provider Otolaryngology Otolaryngology/Facial Plastic Surgery; Visit Provider Otolaryngology Otolaryngology/Facial Plastic Surgery
DX: J32.9 Chronic sinusitis, unspecified (principal); J02.9 Acute pharyngitis, unspecified
CPT/HCPCS: 87070; 87077; 87186

== ENCOUNTER → 2018-03-15 15:07 | Outpatient (CLI) | payer MEDICARE, OTHER, SELFPAY ==
[2018-03-15 15:54] LABS: Absolute Lymphocyte Count 1.36 X10^3/ul (0.83-4.51); Absolute Neutrophil Count 3.4 X10^3/uL (2.0-7.7); Basophil# 0.02 X10^3/uL; Basophil% 0.4 % (0-1); Eosinophil# 0.17 X10^3/uL; Eosinophils% 3.1 % (0-5); Hematocrit 43.2 % (40-54); Hemoglobin 13.5 g/dl (13.0-16.5); Lymphocyte # 1.36 X10^3/ul (4.0); Lymphocyte % 24.7 % (19-41); Mean Corp Hgb Conc 31.3 g/gl (32-36); Mean Corpuscular Hgb 27.2 pg (27.0-32.0); Mean Corpuscular Volume 87.1 fL (80-94); Monocyte# 0.53 X10^3/uL; Monocyte% 9.6 % (0-10); Neutrophil # 3.42 X10^3/uL (2.7-7.7); Neutrophil % 62.2 % (47-70); Platelet Count 170 K/mm3 (150-450); RBC Distribution Width CV 14.6 % (11.6-14.6); RBC Distribution Width SD 46.4 fl (35.1-43.9); Red Blood Count 4.96 M/mm3 (4.6-6.2); White Blood Count 5.5 K/mm3 (4.4-11.0)
[2018-03-15 16:13] LABS: POSITIVE COUNT NO; POSITIVE DIFFERENTIAL NO; POSITIVE MORPHOLOGY NO
[2018-03-15 16:21] LABS: ALB/GLOB Ratio 1.1 RATIO (0.9-2.4); AST(SGOT) 21 U/L (15-37); Alanine Aminotransfer ALT/SGPT 29 U/L (16-61); Albumin, Serum 3.7 g/dL (3.2-5.0); Alkaline Phosphatase 92 U/L (45-117); Anion Gap 6 (5-15); BUN 27 mg/dL (7-18); BUN/Creat Ratio 21.1 RATIO (10-20); Calcium,Total 8.8 mg/dL (8.5-10.1); Chloride 108 mmol/L (98-107); Creatinine, Serum 1.28 mg/dL (0.70-1.30); EST Glomerular Filtration Rate 59 mL/min (>60); Est Glom Filt Rate - Afr Amer 71 mL/min (>60); Globulin 3.4 g/dL (2.2-4.2); Glucose 95 mg/dL (74-106); Potassium 4.2 mmol/L (3.5-5.1); Protein, Total 7.1 g/dL (6.4-8.2); Sodium Level 143 mmol/L (136-145)
[2018-03-15 16:27] LABS: Vitamin D,25 Hydroxy 55.6 ng/mL (29.95-100.01)
== END ==
PROVIDERS: Family Provider Family Medicine Geriatric Medicine; PCP Family Medicine Geriatric Medicine; Visit Provider Family Medicine Geriatric Medicine
DX: E55.9 Vitamin D deficiency, unspecified (principal); R53.83 Other fatigue
CPT/HCPCS: 36415; 80053; 82306; 84443; 85025

== ENCOUNTER → 2018-05-16 | Outpatient (CLI) | payer MEDICARE, OTHER, SELFPAY ==
[2018-05-16 16:48] LABS: Mucous, Urine 0 SEEN /hpf (<or=2+)
[2018-05-16 17:16] LABS: Color, Urine Yellow (Yellow); Glucose, Dipstick Normal (Normal); Ketone-Dipstick Negative (Negative); Leukocyte Esterase-Dipstick 500 /ul (Negative); Nitrite-Dipstick Negative (Negative); Occult Blood-Urine 25 /ul (Negative); Protein-Dipstick 30 mg/dl (Negative); Specific Gravity, Urine 1.025 (1.002-1.030); Urine Bilirubin Dipstick Negative (Negative); Urine Clarity Cloudy (Clear); Urine Urobilinogen Normal (Normal)
[2018-05-16 17:29] LABS: Bacteria 3+ /hpf (None Seen); Red Blood Cells-Urine 0-5 SEEN /hpf (0-5); Squamous Epithelial Cells - UA 0-5 SEEN /hpf (0-5); White Blood Cells 50-100 SEEN /hpf (0-5)
[2018-05-16 17:47] LABS: Albumin, Serum 3.4 g/dL (3.2-5.0); BUN 35 mg/dL (7-18); BUN/Creat Ratio 24.3 RATIO (10-20); Calcium,Total 8.5 mg/dL (8.5-10.1); Chloride 112 mmol/L (98-107); Creatinine, Serum 1.44 mg/dL (0.70-1.30); EST Glomerular Filtration Rate 51 mL/min (>60); Est Glom Filt Rate - Afr Amer 62 mL/min (>60); Glucose 86 mg/dL (74-106); Potassium 4.1 mmol/L (3.5-5.1); Sodium Level 146 mmol/L (136-145)
== END | disposition home or self-care (01) ==
LOC: LAB.FUTURE 16:45
PROVIDERS: Family Provider Family Medicine Geriatric Medicine; PCP Family Medicine Geriatric Medicine; Referring Provider Internal Medicine Nephrology; Visit Provider Internal Medicine Nephrology
DX: N18.3 Chronic kidney disease, stage 3 (moderate) (principal)
CPT/HCPCS: 36415; 80069; 81001

== ENCOUNTER → 2018-05-18 15:11 | Outpatient (CLI) | payer MEDICARE, OTHER, SELFPAY | PROVIDERS: Family Provider Family Medicine Geriatric Medicine; PCP Family Medicine Geriatric Medicine; Visit Provider Internal Medicine Nephrology | DX: N39.0 Urinary tract infection, site not specified (principal) | CPT/HCPCS: 87077; 87086; 87088; 87186 ==

== ENCOUNTER → 2018-06-29 14:11 | Outpatient (CLI) | payer MEDICARE, OTHER, SELFPAY ==
[2018-06-29 15:55] LABS: Absolute Lymphocyte Count 1.17 X10^3/ul (0.83-4.51); Absolute Neutrophil Count 3.5 X10^3/uL (2.0-7.7); Basophil# 0.03 X10^3/uL; Basophil% 0.6 % (0-1); Eosinophils% 3.7 % (0-5); Hematocrit 33.8 % (40-54); Hemoglobin 10.8 g/dl (13.0-16.5); Lymphocyte # 1.17 X10^3/ul (4.0); Lymphocyte % 21.6 % (19-41); Mean Corpuscular Hgb 27.2 pg (27.0-32.0); Mean Corpuscular Volume 85.1 fL (80-94); Mean Platelet Vol. 9.8 fl (6.2-12.0); Monocyte% 9.2 % (0-10); Neutrophil # 3.48 X10^3/uL (2.7-7.7); Neutrophil % 64.3 % (47-70); Platelet Count 177 K/mm3 (150-450); RBC Distribution Width CV 15.2 % (11.6-14.6); RBC Distribution Width SD 46.3 fl (35.1-43.9); Red Blood Count 3.97 M/mm3 (4.6-6.2); White Blood Count 5.4 K/mm3 (4.4-11.0)
[2018-06-29 16:04] LABS: POSITIVE COUNT NO; POSITIVE DIFFERENTIAL NO; POSITIVE MORPHOLOGY NO
[2018-06-29 16:06] LABS: Vitamin D,25 Hydroxy 55.2 ng/mL (29.95-100.01)
[2018-06-29 16:07] LABS: AST(SGOT) 41 U/L (15-37); Alanine Aminotransfer ALT/SGPT 47 U/L (16-61); Alkaline Phosphatase 96 U/L (45-117); Anion Gap 7 (5-15); BUN 42 mg/dL (7-18); BUN/Creat Ratio 30.9 RATIO (10-20); Calcium,Total 8.1 mg/dL (8.5-10.1); Chloride 112 mmol/L (98-107); Creatinine, Serum 1.36 mg/dL (0.70-1.30); EST Glomerular Filtration Rate 55 mL/min (>60); Est Glom Filt Rate - Afr Amer 66 mL/min (>60); Globulin 3.1 g/dL (2.2-4.2); Glucose 88 mg/dL (74-106); Potassium 4.4 mmol/L (3.5-5.1); Protein, Total 6.1 g/dL (6.4-8.2); Sodium Level 143 mmol/L (136-145); Thyroid Stim Hormone (TSH) 1.32 uIU/mL (0.358-3.74)
== END ==
PROVIDERS: Family Provider Family Medicine Geriatric Medicine; PCP Family Medicine Geriatric Medicine; Visit Provider Family Medicine Geriatric Medicine
DX: E55.9 Vitamin D deficiency, unspecified (principal); R53.83 Other fatigue
CPT/HCPCS: 36415; 80053; 82306; 84443; 85025

== ENCOUNTER → 2018-07-06 12:32 | Outpatient (CLI) | payer MEDICARE, OTHER, SELFPAY ==
[2018-07-06 13:32] VITALS: BP 130/73; PULSE 47; RESP 16; TEMP 36.8; O2SAT 97; BMI 36.7
== END ==
PROVIDERS: Family Provider Family Medicine Geriatric Medicine; PCP Family Medicine Geriatric Medicine; Referring Provider Family Medicine Geriatric Medicine; Visit Provider Family Medicine Geriatric Medicine
DX: N18.3 Chronic kidney disease, stage 3 (moderate) (principal); D50.9 Iron deficiency anemia, unspecified
CPT/HCPCS: 96365; J1756; J7050; A4216

== ENCOUNTER → 2018-07-08 13:39 | Outpatient (CLI) | payer MEDICARE, OTHER, SELFPAY ==
[2018-07-06 13:32] VITALS: BMI 36.7
[2018-07-08 14:13] VITALS: BP 111/55; PULSE 52; RESP 16; TEMP 36.5; O2SAT 95; BMI 35.9
== END ==
PROVIDERS: Family Provider Family Medicine Geriatric Medicine; PCP Family Medicine Geriatric Medicine; Referring Provider Family Medicine Geriatric Medicine; Visit Provider Family Medicine Geriatric Medicine
DX: D50.9 Iron deficiency anemia, unspecified (principal); N18.3 Chronic kidney disease, stage 3 (moderate)
CPT/HCPCS: 96365; J1756; J7050; A4216

== ENCOUNTER → 2018-07-11 14:38 | Outpatient (CLI) | payer MEDICARE, OTHER, SELFPAY ==
[2018-07-08 14:13] VITALS: BMI 35.9
[2018-07-11 15:06] VITALS: BP 104/56; PULSE 51; RESP 16; TEMP 36.5; O2SAT 98; BMI 35.9
== END ==
PROVIDERS: Family Provider Family Medicine Geriatric Medicine; PCP Family Medicine Geriatric Medicine; Referring Provider Family Medicine Geriatric Medicine; Visit Provider Family Medicine Geriatric Medicine
DX: D50.9 Iron deficiency anemia, unspecified (principal); N18.3 Chronic kidney disease, stage 3 (moderate)
CPT/HCPCS: 96365; J1756; J7050; A4216

== ENCOUNTER → 2018-07-13 10:32 | Outpatient (CLI) | payer MEDICARE, OTHER, SELFPAY ==
[2018-07-11 15:06] VITALS: BMI 35.9
[2018-07-13 10:54] VITALS: BP 188/94; PULSE 87; RESP 20; TEMP 36.6; O2SAT 99; BMI 35.9
== END ==
PROVIDERS: Family Provider Family Medicine Geriatric Medicine; PCP Family Medicine Geriatric Medicine; Referring Provider Family Medicine Geriatric Medicine; Visit Provider Family Medicine Geriatric Medicine
DX: D50.9 Iron deficiency anemia, unspecified (principal); N18.3 Chronic kidney disease, stage 3 (moderate)
CPT/HCPCS: 96365; J1756; J7050; A4216

== ENCOUNTER → 2018-07-15 13:40 | Outpatient (CLI) | payer MEDICARE, OTHER, SELFPAY ==
[2018-07-13 10:54] VITALS: BMI 35.9
[2018-07-15 13:53] VITALS: BP 157/86; PULSE 48; RESP 16; TEMP 36.9; O2SAT 97; BMI 35.9
== END ==
PROVIDERS: Family Provider Family Medicine Geriatric Medicine; PCP Family Medicine Geriatric Medicine; Referring Provider Family Medicine Geriatric Medicine; Visit Provider Family Medicine Geriatric Medicine
DX: D50.9 Iron deficiency anemia, unspecified (principal); N18.3 Chronic kidney disease, stage 3 (moderate)
CPT/HCPCS: 96365; J1756; J7050; A4216

== ENCOUNTER → 2018-07-21 13:17 | Outpatient (CLI) | payer MEDICARE, OTHER, SELFPAY ==
[2018-07-15 13:53] VITALS: BMI 35.9
[2018-07-21 16:12] LABS: Ferritin 86 ng/mL (26-388); Iron 67 ug/dL (65-175); Iron Binding Capacity,Total 261 ug/dL (250-450); PERCENT IRON SATURATION 25.7 % (15.0-55.0)
== END ==
PROVIDERS: Family Provider Family Medicine Geriatric Medicine; PCP Family Medicine Geriatric Medicine; Visit Provider Family Medicine Geriatric Medicine
DX: D64.9 Anemia, unspecified (principal)
CPT/HCPCS: 36415; 82728; 83540; 83550

== ENCOUNTER → 2018-07-25 15:38 | Outpatient (CLI) | payer MEDICARE, OTHER, SELFPAY ==
[2018-07-15 13:53] VITALS: BMI 35.9
[2018-07-25 17:35] LABS: Hematocrit 42.1 % (40-54); Hemoglobin 13.3 g/dl (13.0-16.5)
== END ==
PROVIDERS: Family Provider Family Medicine Geriatric Medicine; PCP Family Medicine Geriatric Medicine; Visit Provider Family Medicine Geriatric Medicine
DX: D50.9 Iron deficiency anemia, unspecified (principal)
CPT/HCPCS: 36415; 85014; 85018

== ENCOUNTER → 2018-10-31 14:46 | Outpatient (CLI) | payer MEDICARE, OTHER, SELFPAY ==
[2018-07-15 13:53] VITALS: BMI 35.9
[2018-10-31 16:56] LABS: Hematocrit 43.5 % (40-54)
== END ==
PROVIDERS: Family Provider Family Medicine Geriatric Medicine; PCP Family Medicine Geriatric Medicine; Visit Provider Family Medicine Geriatric Medicine
DX: D50.9 Iron deficiency anemia, unspecified (principal)
CPT/HCPCS: 36415; 85014; 85018

== ENCOUNTER → 2018-11-08 16:10 | Outpatient (CLI) | payer MEDICARE, OTHER, SELFPAY ==
[2018-11-08 14:56] VITALS: BMI 37.4
--- NOTE | 2018-11-08 16:14 | EKG12_ITS ---
Test Reason : Blood Pressure : / mmHG Vent. Rate : 051 BPM Atrial Rate : 051 BPM P-R Int : 178 ms QRS Dur : 094 ms QT Int : 446 ms P-R-T Axes : 049 043 043 degrees QTc Int : 411 ms Sinus bradycardia Otherwise normal ECG Confirmed by KYRA YARBROUGH ([id number]), editor trade journal HARISH SIMMS ([id number]) on 11/14/2018 12:06:50 PM Referred By: Kyra Yarbrough Confirmed By:KYRA YARBROUGH
== END ==
PROVIDERS: Family Provider Family Medicine Geriatric Medicine; PCP Family Medicine Geriatric Medicine; Referring Provider Internal Medicine Cardiovascular Disease; Visit Provider Internal Medicine Cardiovascular Disease
DX: I25.10 Atherosclerotic heart disease of native coronary artery without angina pectoris (principal); I48.91 Unspecified atrial fibrillation
CPT/HCPCS: 93005

== ENCOUNTER → 2018-11-21 14:36 | Outpatient (CLI) | payer MEDICARE, OTHER, SELFPAY ==
[2018-07-15 13:53] VITALS: BMI 35.9
[2018-11-08 14:56] VITALS: BMI 37.4
[2018-11-21 15:48] LABS: Hemoglobin 14.3 g/dL (13.0-16.5); Mean Corp Hgb Conc 33.3 g/dL (32-36); Mean Corpuscular Volume 90.3 fL (80-94); Mean Platelet Vol. 9.4 fl (6.2-12.0); Platelet Count 127 K/mm3 (150-450); RBC Distribution Width CV 14.7 % (11.6-14.6); Red Blood Count 4.76 M/mm3 (4.6-6.2); White Blood Count 4.9 K/mm3 (4.4-11.0)
[2018-11-21 16:26] LABS: Albumin, Serum 3.3 g/dL (3.2-5.0); BUN 32 mg/dL (7-18); BUN/Creat Ratio 27.1 RATIO (10-20); Calcium,Total 8.3 mg/dL (8.5-10.1); Chloride 113 mmol/L (98-107); Creatinine, Serum 1.18 mg/dL (0.70-1.30); EST Glomerular Filtration Rate 64 mL/min (>60); Est Glom Filt Rate - Afr Amer 78 mL/min (>60); Glucose 108 mg/dL (74-106); Phosphorus 2.8 mg/dL (2.5-4.9); Potassium 3.9 mmol/L (3.5-5.1); Sodium Level 143 mmol/L (136-145)
== END ==
PROVIDERS: Family Provider Family Medicine Geriatric Medicine; PCP Family Medicine Geriatric Medicine; Referring Provider Internal Medicine Nephrology; Visit Provider Internal Medicine Nephrology
DX: N18.3 Chronic kidney disease, stage 3 (moderate) (principal); D63.1 Anemia in chronic kidney disease
CPT/HCPCS: 36415; 80069; 85027

== ENCOUNTER → 2018-11-23 13:47 | Outpatient (CLI) | payer MEDICARE, OTHER, SELFPAY ==
[2018-11-08 14:56] VITALS: BMI 37.4
--- NOTE | 2018-11-23 13:50 | ECHOCS_ITS ---
Reason For Study: CAD/ASHD Procedure This was a 2D Doppler, Color Flow transthoracic echocardiogram. The study was technically difficult. Contrast injection was performed. Exam performed in department. Left Ventricle Mild concentric left ventricular hypertrophy. The estimated ejection fraction is 65 %. Stage 2 diastolic dysfunction. No regional wall motion abnormalities noted. Right Ventricle Mildly dilated right ventricle. Normal systolic function. Atria The left atrium is severely enlarged. Normal right atrium. Normal atrial septum. Mitral Valve Mild diffuse mitral valve thickening. Trivial mitral valve insufficiency. Tricuspid Valve Normal tricuspid valve. Trivial tricuspid valve insufficiency. Right ventricular systolic pressure estimated to be 40 mmHg. Mild pulmonary hypertension. Aortic Valve Trisinus/trileaflet aortic valve. Pulmonic Valve Normal pulmonic valve. Trivial pulmonic valve insufficiency. Great Vessels Normal aortic root. Normal arch. Normal inferior vena cava. Inferior vena cava collapse with sniff. Pericardium/Pleural No pericardial effusion. Medication 22 gauge I.V. with prn adaptor inserted into right arm. Diluted definity 3ml given slow IV push to enhance endocardial definition. MMode/2D Measurements & Calculations LVIDd: 4.4 cm IVSd: 1.4 cm LA dimension: 5.1 cm LVIDs: 3.1 cm LVPWd: 1.4 cm RVDd: 4.1 cm FS: 29.1 % LAV(MOD-bp): 99.0 ml LA A4 area: 26.4 cm2 RA A4 area: 19.1 cm2 LAV(MOD-bp) Indexed: 43.1 ml/m2 LAV(MOD-sp2): 96.5 ml LAV(MOD-sp4): 93.8 ml Time Measurements MV dec time: 0.29 sec Doppler Measurements & Calculations MV E max ravin: 79.3 cm/sec Lat Peak E' Ravin: 7.7 cm/sec Med Peak E' Ravin: 5.9 cm/sec MV A max ravin: 55.5 cm/sec E/E' lat: 10.3 E/E' med: 13.4 MV E/A: 1.4 MV V2 max: 83.8 cm/sec MV P1/2t max ravin: 83.8 cm/sec Ao V2 max: 117.7 cm/sec MV max P.8 mmHg MV P1/2t: 117.0 msec Ao max P.5 mmHg MV V2 mean: 42.5 cm/sec MV dec slope: 209.9 cm/sec2 Ao V2 mean: 79.7 cm/sec MV mean P.86 mmHg Ao mean P.9 mmHg MV V2 VTI: 30.1 cm MVA(P1/2t): 1.9 cm2 Ao V2 VTI: 29.1 cm LV V1 max: 106.8 cm/sec PA V2 max: 66.4 cm/sec PI end-d ravin: 87.6 cm/sec LV V1 max P.6 mmHg LV V1 mean P.1 mmHg LV V1 mean: 67.6 cm/sec LV V1 VTI: 26.3 cm TR max ravin: 302.4 cm/sec TR max P.6 mmHg Interpretation Summary Mild concentric left ventricular hypertrophy. The estimated ejection fraction is 65 %. Stage 2 diastolic dysfunction. Mildly dilated right ventricle. The left atrium is severely enlarged. Trivial mitral valve insufficiency. Trivial tricuspid valve insufficiency. Right ventricular systolic pressure estimated to be 40 mmHg. Mild pulmonary hypertension. The study was technically difficult. There is no comparison study available. Contrast injection was performed. Ordering Physician: Silas Yarbrough Referring Physician: Wilbert Pradhan Chi Performed By: Magnus Frias RCS
== END ==
PROVIDERS: Family Provider Family Medicine Geriatric Medicine; PCP Family Medicine Geriatric Medicine; Referring Provider Internal Medicine Cardiovascular Disease; Visit Provider Internal Medicine Cardiovascular Disease
DX: I25.10 Atherosclerotic heart disease of native coronary artery without angina pectoris (principal); I48.91 Unspecified atrial fibrillation; I10 Essential (primary) hypertension; E78.5 Hyperlipidemia, unspecified; G47.33 Obstructive sleep apnea (adult) (pediatric); Z95.5 Presence of coronary angioplasty implant and graft
CPT/HCPCS: 93306; Q9957; A4216; C8929

== ENCOUNTER → 2018-12-07 12:23 | Outpatient (CLI) | payer MEDICARE, OTHER, SELFPAY ==
[2018-11-08 14:56] VITALS: BMI 37.4
--- NOTE | 2018-12-07 12:26 | STE_ITS ---
Reason For Study: CAD/ASHD Stress Results Protocol: Pillo Protocol Maximum Predicted HR: 146 bpm Target HR: 124 bpm % Maximum Predicted HR: 82 % DurationHeart Rate Stage (mm:ss) (bpm) BP Comment BASELINE 52 152/72 STAGE 1 3:00 93 164/92SOB NOTED STAGE 2 3:00 113 174/92INCREASED FATIGUE, SOB, LEG DISCOMFORT STAGE 3 0:19 120 / SOB, FATIGUE RECOVERY 61 170/80SITTING AT SIDE OF BED, STATES FEELING BETTER Stress Duration: 6:19 mm:ss Maximum Stress HR: 120 bpm Baseline Echocardiogram Findings The estimated ejection fraction is 65 %. Stress Echo Wall motion Data Resting WM Intermediate WM Stress WM Resting Wall Motion Wall Motion Stress No regional wall motion No regional wall motion abnormalities noted. abnormalities noted. EKG Data The baseline ECG displays normal sinus rhythm. The patient exercised according to the regular Pillo protocol for a total duration of 6:19. The maximum heart rate attained was 122 beats per minute. This was 83% of maximum predicted heart rate. The patient exercised into stage 3 of the Pillo protocol. During stress, there were no ST or T wave changes noted to suggest ischemia. No clinical angina was noted. Interpretation Summary The estimated ejection fraction is 65 %. Normal, adequate, treadmill echocardiogram. Negative for ischemia by EKG and echocardiographic criteria. No anginal symptoms noted. Rare PAC noted. Appropriate blood pressure response to exercise. Average exercise capacity for age. Test terminated due to fatigue, leg discomfort and dyspnea. Final LVEF is 75%. No complications. Ordering Physician: Silas Yarbrough MD Referring Physician: Silas Yarbrough Performed By: Rosa M Pollock, RDCS, RVT
== END ==
PROVIDERS: Family Provider Family Medicine Geriatric Medicine; PCP Family Medicine Geriatric Medicine; Referring Provider Internal Medicine Cardiovascular Disease; Visit Provider Internal Medicine Cardiovascular Disease
DX: I25.10 Atherosclerotic heart disease of native coronary artery without angina pectoris (principal); I48.91 Unspecified atrial fibrillation; I10 Essential (primary) hypertension; E78.5 Hyperlipidemia, unspecified; G47.33 Obstructive sleep apnea (adult) (pediatric); Z95.5 Presence of coronary angioplasty implant and graft
CPT/HCPCS: 93017; 93350

== ENCOUNTER → 2018-12-28 16:12 | Outpatient (CLI) | payer MEDICARE, OTHER, SELFPAY ==
[2018-11-08 14:56] VITALS: BMI 37.4
[2018-12-28 17:08] LABS: Absolute Lymphocyte Count 1.23 X10^3/uL (0.83-4.51); Absolute Neutrophil Count 3.6 X10^3/uL (2.0-7.7); Basophil# 0.04 X10^3/uL; Basophil% 0.7 % (0-1); Eosinophil# 0.14 X10^3/uL; Eosinophils% 2.6 % (0-5); Hematocrit 42.7 % (40-54); Hemoglobin 14.3 g/dL (13.0-16.5); Lymphocyte # 1.23 X10^3/ul (4.0); Lymphocyte % 22.4 % (19-41); Mean Corp Hgb Conc 33.5 g/dL (32-36); Mean Corpuscular Hgb 30.9 pg (27.0-32.0); Mean Corpuscular Volume 92.2 fL (80-94); Mean Platelet Vol. 9.9 fl (6.2-12.0); Monocyte% 9.1 % (0-10); NRBC Flagged by Analyzer 0 % (0-5); Neutrophil # 3.56 X10^3/uL (2.7-7.7); Platelet Count 133 K/mm3 (150-450); RBC Distribution Width SD 47.4 fl (35.1-43.9); Red Blood Count 4.63 M/mm3 (4.6-6.2); White Blood Count 5.5 K/mm3 (4.4-11.0)
[2018-12-28 17:53] LABS: ALB/GLOB Ratio 1.1 RATIO (0.9-2.4); AST(SGOT) 20 U/L (15-37); Alanine Aminotransfer ALT/SGPT 27 U/L (16-61); Albumin, Serum 3.3 g/dL (3.2-5.0); Alkaline Phosphatase 83 U/L (45-117); Anion Gap 5 (5-15); BUN 35 mg/dL (7-18); BUN/Creat Ratio 27.1 RATIO (10-20); Calcium,Total 8.5 mg/dL (8.5-10.1); Chloride 112 mmol/L (98-107); Creatinine, Serum 1.29 mg/dL (0.70-1.30); EST Glomerular Filtration Rate 58 mL/min (>60); Est Glom Filt Rate - Afr Amer 70 mL/min (>60); Globulin 2.9 g/dL (2.2-4.2); Glucose 113 mg/dL (74-106); Potassium 3.8 mmol/L (3.5-5.1); Protein, Total 6.2 g/dL (6.4-8.2); Sodium Level 142 mmol/L (136-145); Thyroid Stim Hormone (TSH) 2.69 uIU/mL (0.358-3.74)
== END ==
PROVIDERS: Family Provider Family Medicine Geriatric Medicine; PCP Family Medicine Geriatric Medicine; Visit Provider Family Medicine Geriatric Medicine
DX: R53.83 Other fatigue (principal); E55.9 Vitamin D deficiency, unspecified
CPT/HCPCS: 36415; 80053; 82306; 84443; 85025

== ENCOUNTER → 2019-01-10 14:44 | Outpatient (CLI) | payer MEDICARE, OTHER, SELFPAY ==
[2018-11-08 14:56] VITALS: BMI 37.4
--- NOTE | 2019-01-10 15:03 | VDLE_ITS ---
Reason For Study: EDEMA RIGHT LEFT GSV is normal. GSV is normal. CFV is compressible, spontaneous, phasic, CFV is compressible, spontaneous, phasic, competent and demonstrates normal competent, and demonstrates normal augmentation. augmentation. FV is compressible, spontaneous, phasic, FV is compressible, spontaneous, phasic, competent and demonstrates normal competent and demonstrates normal augmentation. augmentation. POP V is compressible, spontaneous, phasic, POP V is compressible, spontaneous, phasic, competent and demonstrates normal competent and demonstrates normal augmentation. augmentation. T/P Trunk is compressible. T/P Trunk is compressible. PTV is compressible. PTV is compressible. RT PerV is compressible. LT PerV is compressible. Procedure Exam performed in department. A preliminary report was called and/or faxed to DR PRADHAN. Interpretation Summary Deep veins of the lower extremities are bilaterally patent and compressible segmentally. There is no evidence of deep vein thrombosis on either side. Valvular competence appears intact within the proximal deep venous systems bilaterally. The great saphenous veins appear bilaterally patent and compressible segmentally. Ordering Physician: Wilbert Pradhan Referring Physician: Wilbert Pradhan Chi Performed By: Rosa M Pollock, KALPESHCS, RVT
== END ==
PROVIDERS: Family Provider Family Medicine Geriatric Medicine; PCP Family Medicine Geriatric Medicine; Referring Provider Family Medicine Geriatric Medicine; Visit Provider Family Medicine Geriatric Medicine
DX: R60.0 Localized edema (principal)
CPT/HCPCS: 93970

== ENCOUNTER → 2019-02-09 14:36 | Outpatient (CLI) | payer MEDICARE, OTHER, SELFPAY ==
[2018-11-08 14:56] VITALS: BMI 37.4
[2019-02-09 16:35] LABS: PSA,Total- Diagnostic 0.01 ng/mL (0.0-4.0)
== END ==
PROVIDERS: Family Provider Family Medicine Geriatric Medicine; PCP Family Medicine Geriatric Medicine; Referring Provider Urology; Visit Provider Urology
DX: C61 Malignant neoplasm of prostate (principal)
CPT/HCPCS: 36415; 84153

== ENCOUNTER 2019-04-24 13:25 | Outpatient (RCR) | payer MEDICARE, OTHER, SELFPAY ==
[2019-04-19 15:10] VITALS: BMI 37.4
--- NOTE | 2019-04-24 15:01 | HP.PTEVAL_ITS ---
Patient's Visit Information ERICKA SHELDON is a 73 year old M referred to Physical Therapy by Melo Rao DO with a diagnosis of R shoulder strain. Date of Evaluation: 04/24/19 Physical Therapist: Blayne Mack, PT, ATC - Visit Plan Frequency: 1x/Week Duration: 2 Weeks Plan: Issue and instruct on HEP of rot cuff and scap stab ex's - Subjective Subjective: Pt reports he has had R shoulder pain for approximately one month. Pt reports he was waving a traffic flag for 2 1/2 hours when he stopped to help a car that had broke down. Pt reports he has had pain ever since. Pt reports no PMHx of R shoulder pain prior to this incident. Pt reports reaching overhead, like when he puts dishes away, his pain increases. Pt notes the doctor ordered xrays, but there were technical difficulties and he could not get them taken. Pt is R hand dominant. Pt notes occasional sleep difficulty secondary to pain. 1/10 pain at rest, 8/10 pain at worst. - Pain R shoulder Pain Intensity (Out of 10): 1 Pain Intensity Range: 8 - Objective Neuro: B UE sensation is WNL to light touch. Bpatellar reflex= 2/3. Palpation: No pain with palpation this date. No obvious deformity. ROM: L shoulder flex= 165, abd= 65, ER= 75, IR WNL; R shoulder flex= 140, abd= 130, ER= 75, IR minimally limited. MMT: B shoulder's 5/5 throughout. Special tests: pos HK test - Goals Goal 1:: I with HEP Goal Time Frame: 1 Week - Rehabilitation Potential Physical Therapy Diagnosis: Pt has R shoulder pain and limited ROM secondary to impingement syndrome Rehabilitation Potential: Good - Anticipated Interventions Patient/Client Instruction: Educate patient on: Condition, Plan of Care For the Purpose of:: To improve self management Therapeutic Exercise to Include: Strength training, Scapular Strength/Stabilization For the Purpose of:: To decrease pain, To increase ROM Thank you for the opportunity to evaluate your patient. For Medicare and Medicare HMO plans, please review the plan of care and approve it. It will need to be FAXED BACK to us at [phone] for Medicare purposes. For Medicare only, by signing this I certify the plan of care. Please let me know if there are questions or concerns regarding this plan of care. Physician Signature: Date:
--- NOTE | 2019-08-14 15:10 | HP.PT.NRP ---
ERICKA SHELDON was seen in my office for initial evaluation on 04/24/19. The following Plan of Care was established for this patient: Initial Frequency: 1x/Week Initial Duration: 2 Weeks Patient/Client Instruction: Educate patient on: Condition, Plan of Care For the Purpose of:: To improve self management Therapeutic Exercise to Include: Strength training, Scapular Strength/Stabilization For the Purpose of:: To decrease pain, To increase ROM This patient was last seen in our office . Pertinent comments regarding their Physical therapy will appear below: Pt w as evaluated on the date of 04/24/2019 for shoulder pain. Pt has not returned through todays date and is discontinued at this time At this point I will be discontinuing this patient from physical therapy. I would be happy to see this patient again in the future if found appropriate by the physician. Thank you! Blayne Mack, PT, ATC
== END 2019-04-24 19:00 | disposition home or self-care (01) ==
LOC: PT 13:25
PROVIDERS: PCP Family Medicine Geriatric Medicine; Visit Provider Orthopaedic Surgery
DX: S46.911D Strain of unspecified muscle, fascia and tendon at shoulder and upper arm level, right arm, subsequent encounter (principal); M75.81 Other shoulder lesions, right shoulder
CPT/HCPCS: 97161

== ENCOUNTER → 2019-05-17 14:42 | Outpatient (CLI) | payer MEDICARE, OTHER, SELFPAY ==
[2018-11-08 14:56] VITALS: BMI 37.4
[2019-04-19 15:10] VITALS: BMI 37.4
[2019-05-17 15:43] LABS: Absolute Lymphocyte Count 1.34 X10^3/uL (0.83-4.51); Absolute Neutrophil Count 4.1 X10^3/uL (2.0-7.7); Basophil# 0.04 X10^3/uL; Basophil% 0.6 % (0-1); Eosinophil# 0.13 X10^3/uL; Eosinophils% 2.1 % (0-5); Hematocrit 45.6 % (40-54); Lymphocyte # 1.34 X10^3/ul (4.0); Lymphocyte % 21.6 % (19-41); Mean Corp Hgb Conc 32.9 g/dL (32-36); Mean Corpuscular Hgb 29.9 pg (27.0-32.0); Mean Platelet Vol. 9.4 fl (6.2-12.0); Monocyte# 0.62 X10^3/uL; NRBC Flagged by Analyzer 0 % (0-5); Neutrophil # 4.06 X10^3/uL (2.7-7.7); Neutrophil % 65.4 % (47-70); Platelet Count 152 K/mm3 (150-450); RBC Distribution Width CV 14.1 % (11.6-14.6); Red Blood Count 5.01 M/mm3 (4.6-6.2); White Blood Count 6.2 K/mm3 (4.4-11.0)
[2019-05-17 16:05] LABS: ALB/GLOB Ratio 1.1 RATIO (0.9-2.4); AST(SGOT) 20 U/L (15-37); Alanine Aminotransfer ALT/SGPT 27 U/L (16-61); Albumin, Serum 3.6 g/dL (3.2-5.0); Alkaline Phosphatase 81 U/L (45-117); Anion Gap 3 (5-15); BUN 29 mg/dL (7-18); BUN/Creat Ratio 20.3 RATIO (10-20); Chloride 112 mmol/L (98-107); Creatinine, Serum 1.43 mg/dL (0.70-1.30); EST Glomerular Filtration Rate 51 mL/min (>60); Est Glom Filt Rate - Afr Amer 62 mL/min (>60); Globulin 3.3 g/dL (2.2-4.2); Glucose 89 mg/dL (74-106); Potassium 3.9 mmol/L (3.5-5.1); Protein, Total 6.9 g/dL (6.4-8.2); Sodium Level 143 mmol/L (136-145); Thyroid Stim Hormone (TSH) 3.36 uIU/mL (0.358-3.74)
== END ==
PROVIDERS: Family Provider Family Medicine Geriatric Medicine; PCP Family Medicine Geriatric Medicine; Visit Provider Internal Medicine Nephrology
DX: M25.511 Pain in right shoulder (principal); N18.3 Chronic kidney disease, stage 3 (moderate); D64.9 Anemia, unspecified
CPT/HCPCS: 36415; 80053; 84100; 84443; 85025

== ENCOUNTER → 2019-07-06 14:58 | Outpatient (CLI) | payer MEDICARE, OTHER, SELFPAY ==
[2019-04-19 15:10] VITALS: BMI 37.4
[2019-07-06 18:03] LABS: Vitamin D,25 Hydroxy 60.8 ng/mL
[2019-07-06 18:07] LABS: Absolute Lymphocyte Count 1.61 X10^3/uL (0.83-4.51); Absolute Neutrophil Count 2.9 X10^3/uL (2.0-7.7); Basophil# 0.03 X10^3/uL; Basophil% 0.6 % (0-1); Eosinophil# 0.12 X10^3/uL; Eosinophils% 2.3 % (0-5); Hematocrit 44.7 % (40-54); Hemoglobin 14.5 g/dL (13.0-16.5); Lymphocyte # 1.61 X10^3/ul (4.0); Lymphocyte % 30.7 % (19-41); Mean Corp Hgb Conc 32.4 g/dL (32-36); Mean Corpuscular Hgb 29.9 pg (27.0-32.0); Mean Corpuscular Volume 92.2 fL (80-94); Mean Platelet Vol. 9.8 fl (6.2-12.0); Monocyte# 0.56 X10^3/uL; Monocyte% 10.7 % (0-10); NRBC Flagged by Analyzer 0 % (0-5); Neutrophil # 2.92 X10^3/uL (2.7-7.7); Neutrophil % 55.5 % (47-70); Platelet Count 163 K/mm3 (150-450); RBC Distribution Width SD 47.8 fl (35.1-43.9); Red Blood Count 4.85 M/mm3 (4.6-6.2); White Blood Count 5.3 K/mm3 (4.4-11.0)
[2019-07-06 19:08] LABS: AST(SGOT) 21 U/L (15-37); Alanine Aminotransfer ALT/SGPT 28 U/L (16-61); Albumin, Serum 3.5 g/dL (3.2-5.0); Alkaline Phosphatase 78 U/L (45-117); Anion Gap 7 (5-15); BUN 35 mg/dL (7-18); BUN/Creat Ratio 28.5 RATIO (10-20); Calcium,Total 8.9 mg/dL (8.5-10.1); Chloride 108 mmol/L (98-107); Creatinine, Serum 1.23 mg/dL (0.70-1.30); EST Glomerular Filtration Rate 61 mL/min (>60); Est Glom Filt Rate - Afr Amer 74 mL/min (>60); Globulin 3.4 g/dL (2.2-4.2); Glucose 89 mg/dL (74-106); Potassium 4.3 mmol/L (3.5-5.1); Protein, Total 6.9 g/dL (6.4-8.2); Sodium Level 142 mmol/L (136-145); Thyroid Stim Hormone (TSH) 3.36 uIU/mL (0.358-3.74)
== END ==
PROVIDERS: PCP Family Medicine Geriatric Medicine; Visit Provider Family Medicine Geriatric Medicine
DX: E55.9 Vitamin D deficiency, unspecified (principal); R53.83 Other fatigue
CPT/HCPCS: 36415; 80053; 82306; 84443; 85025

== ENCOUNTER → 2019-08-10 14:55 | Outpatient (CLI) | payer MEDICARE, OTHER, SELFPAY ==
[2019-07-18 09:21] VITALS: BMI 37.4
[2019-08-10 16:55] LABS: PSA,Total- Diagnostic < 0.01 ng/mL (0.0-4.0)
== END ==
PROVIDERS: PCP Family Medicine Geriatric Medicine; Referring Provider Urology; Visit Provider Urology
DX: C61 Malignant neoplasm of prostate (principal)
CPT/HCPCS: 36415; 84153

== ENCOUNTER 2019-11-17 17:20 | Emergency (ER) | payer MEDICARE, OTHER, SELFPAY ==
[2019-07-18 09:21] VITALS: BMI 37.4
[2019-11-17 17:21] VITALS: BP 199/101; PULSE 64; RESP 16; TEMP 36.3; O2SAT 99; BMI 35.9
--- NOTE | 2019-11-17 17:35 | ED.VIS.GEN ---
History of Present Illness Informant: Patient <Sandy Torres - Last Filed: 11/17/19 17:59> <RoyceEzequiel - Last Filed: 11/17/19 18:19> Chief Complaint: Laceration Past Medical History Smoking Status: Never smoker <Sandy Torres - Last Filed: 11/17/19 17:59> <RoyceEzequiel - Last Filed: 11/17/19 18:19> - Allergies and Home Meds Allergies/Adverse Reactions: Allergies No Known Allergies Allergy (Verified 07/13/19 16:50) Primary Care Physician: Wilbert Pradhan Chi, MD [Primary Care Provider] - Review of Systems General: Denies: Chills, Fever Cardiovascular: Denies: Chest pain, Palpitations Respiratory: Denies: Dyspnea, Cough Gastrointestinal: Denies: Abdominal pain Musculoskeletal: Denies: Swelling, Extremity Pain Skin: Reports: Wounds. Denies: Rash, Abscess Neurological: Denies: Weakness, Parasthesia, Numbness Hematologic: Denies: Easy bruising, Easy bleeding <Sandy Torres - Last Filed: 11/17/19 17:59> Physical Exam Vital Signs/Narrative: Vital Signs Temp Pulse Resp BP Pulse Ox 11/17/19 17:21 97.4 F L 64 16 199/101 H 99 Inital Vital Signs reviewed: Yes General: Well nourished, Well developed, No Acute Distress Head: Normocephalic, Atraumatic Eyes: EOMI Cardiovascular: Regular rate, Regular rhythm, No murmurs Respiratory: No distress, CTA bilaterally, Chest nontender Skin: Normal color, No rash, - - 1 cm laceration on right index finger proximal to 2nd MCP on dorsal side extending toward thumb web space. No visualized tendons. Neurological: Alert, Oriented x3, Normal Strength, Normal Sensation, - - Sensation intact in median, ulnar, and radial distributions. 2+ radial pulse. Full range of motion of the wrist and digits. Cap refill less than 2 seconds. <Sandy Torres - Last Filed: 11/17/19 17:59> Vital Signs/Narrative: Vital Signs Temp Pulse Resp BP Pulse Ox 11/17/19 17:21 97.4 F L 64 16 199/101 H 99 <ChuchogiselaEzequiel - Last Filed: 11/17/19 18:19> Diagnostic/Tx/Re-eval - Medical Decision Making Presented with 1.5 cm laceration to his right index finger. He is neurovascularly intact on exam. No bony tenderness or indication for x-ray. Wound was anesthetized with 2 cc of 1% lidocaine and thoroughly irrigated with sterile saline. It was closed with 3 simple interrupted sutures of 5-0 Ethilon with good approximation of the wound. Discussed general wound care and that sutures need removed in 7-10 days. Tetanus was updated. He was discharged home in stable condition. <Sandy Torres - Last Filed: 11/17/19 17:59> - Medical Decision Making Patient was seen with me. I did a [id number] examination with the patient. Patient presents with a laceration to his right hand that occurred today. Patient states he was cooking at home when he accidentally cut his right hand with a knife. Patient denies any paresthesias or weakness. Patient states the bleeding has been persistent. Patient is unsure of his last tetanus. Vital signs are stable. Patient is afebrile. Patient is in no acute distress. Skin is warm and dry. There is 1.5 cm laceration on the radial aspect of the right index finger over the MP joint. There is no joint involvement. There is moderate gapping of the wound margins. There are no foreign bodies noted. There is mild bleeding noted. Sensation was intact to light touch in all digits. Capillary refill was less than 2 seconds in all digits. Strength is 5/5 in the radial, median, and ulnar areas. The wound was cleaned and closed with 3 simple interrupted 5-0 Ethilon sutures. Patient tolerated the procedure well. Bacitracin dressing was applied. Patient was given a tetanus booster. Patient was instructed to keep the wound clean and dry. Patient was instructed to follow-up with his primary care physician in 5 to 7 days. Patient understood and was agreeable with the plan. All questions were answered. <Ezequiel Crane - Last Filed: 11/17/19 18:19> ED Disposition <Sandy Torres - Last Filed: 11/17/19 17:59> <Ezequiel Crane - Last Filed: 11/17/19 18:19> - Plan for ED Patient: Disposition: Home or Assisted Living Diagnosis: Laceration of right hand Instructions: ED Laceration Hand Referrals: Wilbert Pradhan Chi, MD [Primary Care Provider] -
[2019-11-17] MEDS: Diphth,Pertuss(Acell),Tet Vac 0.5 ML Vial IM (17:59)
== END 2019-11-17 18:25 | disposition home or self-care (01) ==
LOC: ED 18:20
PROVIDERS: Emergency Provider Physician Assistant; PCP Family Medicine Geriatric Medicine
DX: S61.411A Laceration without foreign body of right hand, initial encounter (principal); W26.0XXA Contact with knife, initial encounter
CPT/HCPCS: 12001; 90471; 90715; 99283

== ENCOUNTER → 2019-11-21 14:32 | Outpatient (CLI) | payer MEDICARE, OTHER, SELFPAY ==
[2019-11-17 17:21] VITALS: BMI 35.9
[2019-11-21 15:23] LABS: Albumin, Serum 3.2 g/dL (3.2-5.0); BUN 33 mg/dL (7-18); BUN/Creat Ratio 23.7 RATIO (10-20); Calcium,Total 8.5 mg/dL (8.5-10.1); Chloride 111 mmol/L (98-107); Creatinine, Serum 1.39 mg/dL (0.70-1.30); EST Glomerular Filtration Rate 53 mL/min (>60); Est Glom Filt Rate - Afr Amer 64 mL/min (>60); Glucose 97 mg/dL (74-106); Phosphorus 2.6 mg/dL (2.5-4.9); Potassium 4.6 mmol/L (3.5-5.1); Sodium Level 144 mmol/L (136-145)
[2019-11-21 15:26] LABS: PTHIN 55.2 pg/mL (18.4-80.1)
[2019-11-21 15:39] LABS: AST(SGOT) 22 U/L (15-37); Alanine Aminotransfer ALT/SGPT 25 U/L (16-61); Albumin, Serum 3.2 g/dL (3.2-5.0); Alkaline Phosphatase 75 U/L (45-117); Bilirubin, Direct 0.19 mg/dL (0.00-0.30); Cholesterol 112 mg/dL (200); Globulin 3.1 g/dL (2.2-4.2); High Density Lipoprotein 43 mg/dL; Protein, Total 6.3 g/dL (6.4-8.2); Triglycerides 63 mg/dL; Very Low Density Lipoprotein 13 mg/dL (5-40)
== END ==
PROVIDERS: Internal Medicine Cardiovascular Disease; PCP Family Medicine Geriatric Medicine; Referring Provider Internal Medicine Nephrology; Visit Provider Internal Medicine Nephrology
DX: N18.30 Chronic kidney disease, stage 3 unspecified (principal); E78.00 Pure hypercholesterolemia, unspecified
CPT/HCPCS: 80061; 80069; 80076; 83970

== ENCOUNTER → 2019-12-14 11:08 | Outpatient (CLI) | payer MEDICARE, OTHER, SELFPAY ==
[2019-11-17 17:21] VITALS: BMI 35.9
[2019-12-14 12:23] LABS: Absolute Lymphocyte Count 1.17 X10^3/uL (0.83-4.51); Absolute Neutrophil Count 3.5 X10^3/uL (2.0-7.7); Basophil# 0.04 X10^3/uL; Basophil% 0.7 % (0-1); Eosinophil# 0.17 X10^3/uL; Eosinophils% 3.1 % (0-5); Hematocrit 45.8 % (40-54); Hemoglobin 14.8 g/dL (13.0-16.5); Lymphocyte # 1.17 X10^3/ul (4.0); Lymphocyte % 21.2 % (19-41); Mean Corp Hgb Conc 32.3 g/dL (32-36); Mean Corpuscular Hgb 30.3 pg (27.0-32.0); Mean Corpuscular Volume 93.9 fL (80-94); Mean Platelet Vol. 9.7 fl (6.2-12.0); Monocyte% 10.9 % (0-10); NRBC Flagged by Analyzer 0 % (0-5); Neutrophil # 3.52 X10^3/uL (2.7-7.7); Neutrophil % 63.9 % (47-70); Platelet Count 151 K/mm3 (150-450); RBC Distribution Width CV 14.4 % (11.6-14.6); Red Blood Count 4.88 M/mm3 (4.6-6.2); White Blood Count 5.5 K/mm3 (4.4-11.0)
[2019-12-14 12:27] LABS: Valproic Acid (Depakene) Level 17 ug/mL (50-100)
[2019-12-14 12:39] LABS: ALB/GLOB Ratio 1.1 RATIO (0.9-2.4); AST(SGOT) 17 U/L (15-37); Alanine Aminotransfer ALT/SGPT 28 U/L (16-61); Albumin, Serum 3.5 g/dL (3.2-5.0); Alkaline Phosphatase 89 U/L (45-117); Anion Gap 4 (5-15); BUN 34 mg/dL (7-18); BUN/Creat Ratio 22.7 RATIO (10-20); Calcium,Total 8.5 mg/dL (8.5-10.1); Chloride 107 mmol/L (98-107); EST Glomerular Filtration Rate 49 mL/min (>60); Est Glom Filt Rate - Afr Amer 59 mL/min (>60); Ferritin 33 ng/mL (26-388); Globulin 3.2 g/dL (2.2-4.2); Glucose 92 mg/dL (74-106); Iron 61 ug/dL (65-175); Iron Binding Capacity,Total 267 ug/dL (250-450); Potassium 4.7 mmol/L (3.5-5.1); Protein, Total 6.7 g/dL (6.4-8.2); Sodium Level 142 mmol/L (136-145); Thyroid Stim Hormone (TSH) 3.56 uIU/mL (0.358-3.74)
== END ==
PROVIDERS: PCP Family Medicine Geriatric Medicine; Visit Provider Family Medicine Geriatric Medicine
DX: D50.9 Iron deficiency anemia, unspecified (principal); F39 Unspecified mood [affective] disorder; R40.0 Somnolence
CPT/HCPCS: 36415; 80053; 80164; 82728; 83540; 83550; 84443; 85025

== ENCOUNTER → 2019-12-20 16:56 | Outpatient (CLI) | payer MEDICARE, OTHER, SELFPAY ==
[2019-12-20 18:17] LABS: Anion Gap 4 (5-15); BUN 34 mg/dL (7-18); BUN/Creat Ratio 24.6 RATIO (10-20); Calcium,Total 8.4 mg/dL (8.5-10.1); Chloride 111 mmol/L (98-107); Creatinine, Serum 1.38 mg/dL (0.70-1.30); EST Glomerular Filtration Rate 53 mL/min (>60); Est Glom Filt Rate - Afr Amer 65 mL/min (>60); Glucose 107 mg/dL (74-106); Potassium 4.3 mmol/L (3.5-5.1); Sodium Level 143 mmol/L (136-145)
== END ==
PROVIDERS: PCP Family Medicine Geriatric Medicine; Visit Provider Family Medicine Geriatric Medicine
DX: N17.9 Acute kidney failure, unspecified (principal)
CPT/HCPCS: 36415; 80048

== ENCOUNTER → 2020-01-11 14:45 | Outpatient (CLI) | payer MEDICARE, OTHER, SELFPAY ==
[2020-01-11 17:36] LABS: Absolute Lymphocyte Count 1.34 X10^3/uL (0.83-4.51); Absolute Neutrophil Count 3.5 X10^3/uL (2.0-7.7); Basophil# 0.03 X10^3/uL; Basophil% 0.5 % (0-1); Eosinophil# 0.14 X10^3/uL; Eosinophils% 2.5 % (0-5); Hematocrit 47.4 % (40-54); Hemoglobin 15.4 g/dL (13.0-16.5); Lymphocyte # 1.34 X10^3/ul (4.0); Lymphocyte % 24.2 % (19-41); Mean Corp Hgb Conc 32.5 g/dL (32-36); Mean Corpuscular Volume 92.2 fL (80-94); Mean Platelet Vol. 9.8 fl (6.2-12.0); NRBC Flagged by Analyzer 0 % (0-5); Neutrophil # 3.51 X10^3/uL (2.7-7.7); Neutrophil % 63.6 % (47-70); Platelet Count 169 K/mm3 (150-450); RBC Distribution Width SD 48.2 fl (35.1-43.9); Red Blood Count 5.14 M/mm3 (4.6-6.2); White Blood Count 5.5 K/mm3 (4.4-11.0)
[2020-01-11 17:55] LABS: ALB/GLOB Ratio 1.1 RATIO (0.9-2.4); AST(SGOT) 19 U/L (15-37); Alanine Aminotransfer ALT/SGPT 27 U/L (16-61); Albumin, Serum 3.7 g/dL (3.2-5.0); Alkaline Phosphatase 93 U/L (45-117); Anion Gap 6 (5-15); BUN 31 mg/dL (7-18); BUN/Creat Ratio 21.2 RATIO (10-20); Calcium,Total 9.1 mg/dL (8.5-10.1); Chloride 109 mmol/L (98-107); Creatinine, Serum 1.46 mg/dL (0.70-1.30); EST Glomerular Filtration Rate 50 mL/min (>60); Est Glom Filt Rate - Afr Amer 61 mL/min (>60); Globulin 3.4 g/dL (2.2-4.2); Glucose 114 mg/dL (74-106); Potassium 4.1 mmol/L (3.5-5.1); Protein, Total 7.1 g/dL (6.4-8.2); Sodium Level 143 mmol/L (136-145); Thyroid Stim Hormone (TSH) 2.18 uIU/mL (0.358-3.74)
[2020-01-11 18:42] LABS: Vitamin D,25 Hydroxy 78.6 ng/mL
== END ==
PROVIDERS: PCP Family Medicine Geriatric Medicine; Visit Provider Family Medicine Geriatric Medicine
DX: E55.9 Vitamin D deficiency, unspecified (principal); R53.83 Other fatigue
CPT/HCPCS: 36415; 80053; 82306; 84443; 85025

== ENCOUNTER → 2020-02-13 18:04 | Outpatient (CLI) | payer MEDICARE, OTHER, SELFPAY ==
[2020-01-22 15:10] VITALS: BMI 38.5
== END ==
PROVIDERS: PCP Family Medicine Geriatric Medicine; Referring Provider Family Medicine Geriatric Medicine; Visit Provider Family Medicine Geriatric Medicine
DX: R06.89 Other abnormalities of breathing (principal)
CPT/HCPCS: 87633; 87635; C9803; U0005; U0003

== ENCOUNTER → 2020-04-23 14:21 | Outpatient (CLI) | payer MEDICARE, OTHER, SELFPAY ==
[2020-01-22 15:10] VITALS: BMI 38.5
--- NOTE | 2020-04-23 14:40 | RAD_ITS ---
STUDY: X-RAY - SACRUM/COCCYX REASON FOR EXAM: Male, 74 years old. SACROCCOCCYGEAL Disorders, not ELSEWHERE CLASSIFIED TECHNIQUE: 3 view(s) of the sacrum and coccyx were obtained. COMPARISON: None. FINDINGS: Normal bilateral sacroiliac joints. Normal visualized sacral ala and fused sacral bodies. Normal sacrococcygeal junction with a normal angulation. Normal coccygeal segments. Degenerative changes of the lower lumbar spine with a grade 1 anterior listhesis of L4 on L5 with facet joint osteoarthritis. The presacral soft tissue structures are unremarkable. RAD/Sacrum-Coccyx min 2 Views IMPRESSION: No acute abnormality is seen. 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 Electronically Signed: Brian Peres MD at 15:09 EDT , Service support ,
== END ==
PROVIDERS: PCP Family Medicine Geriatric Medicine; Visit Provider Family Medicine Geriatric Medicine
DX: M53.3 Sacrococcygeal disorders, not elsewhere classified (principal)
CPT/HCPCS: 72220

== ENCOUNTER → 2020-04-23 14:25 | Outpatient (CLI) | payer MEDICARE, OTHER, SELFPAY ==
[2020-01-22 15:10] VITALS: BMI 38.5
[2020-04-23 17:05] LABS: Absolute Lymphocyte Count 1.13 X10^3/uL (0.83-4.51); Absolute Neutrophil Count 4.3 X10^3/uL (2.0-7.7); Basophil# 0.06 X10^3/uL; Basophil% 0.9 % (0-1); Eosinophils% 3.2 % (0-5); Hematocrit 46.2 % (40-54); Hemoglobin 14.9 g/dL (13.0-16.5); Lymphocyte # 1.13 X10^3/ul (4.0); Lymphocyte % 17.9 % (19-41); Mean Corp Hgb Conc 32.3 g/dL (32-36); Mean Corpuscular Hgb 29.9 pg (27.0-32.0); Mean Corpuscular Volume 92.8 fL (80-94); Monocyte# 0.62 X10^3/uL; Monocyte% 9.8 % (0-10); NRBC Flagged by Analyzer 0 % (0-5); Neutrophil # 4.29 X10^3/uL (2.7-7.7); Neutrophil % 67.7 % (47-70); Platelet Count 197 K/mm3 (150-450); RBC Distribution Width CV 14.3 % (11.6-14.6); RBC Distribution Width SD 48.4 fl (35.1-43.9); Red Blood Count 4.98 M/mm3 (4.6-6.2); White Blood Count 6.3 K/mm3 (4.4-11.0)
== END ==
PROVIDERS: PCP Family Medicine Geriatric Medicine; Visit Provider Family Medicine Geriatric Medicine
DX: D64.9 Anemia, unspecified (principal); M53.3 Sacrococcygeal disorders, not elsewhere classified
CPT/HCPCS: 36415; 72220; 85025

== ENCOUNTER → 2020-06-17 15:21 | Outpatient (CLI) | payer MEDICARE, OTHER, SELFPAY ==
[2020-06-17 13:33] VITALS: BMI 36.8
[2020-06-17 17:12] LABS: Hematocrit 49.6 % (40-54); Hemoglobin 15.6 g/dL (13.0-16.5); Mean Corp Hgb Conc 31.5 g/dL (32-36); Mean Corpuscular Hgb 29.1 pg (27.0-32.0); Mean Corpuscular Volume 92.4 fL (80-94); Mean Platelet Vol. 9.8 fl (6.2-12.0); Platelet Count 170 K/mm3 (150-450); RBC Distribution Width CV 14.6 % (11.6-14.6); Red Blood Count 5.37 M/mm3 (4.6-6.2); White Blood Count 7.4 K/mm3 (4.4-11.0)
[2020-06-17 17:27] LABS: Anion Gap 3 (5-15); BUN 36 mg/dL (7-18); BUN/Creat Ratio 26.1 RATIO (10-20); Chloride 108 mmol/L (98-107); Creatinine, Serum 1.38 mg/dL (0.70-1.30); EST Glomerular Filtration Rate 53 mL/min (>60); Est Glom Filt Rate - Afr Amer 65 mL/min (>60); Glucose 97 mg/dL (74-106); Potassium 4.8 mmol/L (3.5-5.1); Sodium Level 141 mmol/L (136-145)
[2020-06-17 17:34] LABS: BNP,B-Type NATRIURETIC PEPTIDE 227.2 pg/mL (0-100)
== END ==
PROVIDERS: PCP Family Medicine Geriatric Medicine; Visit Provider Physician Assistant Medical
DX: R06.00 Dyspnea, unspecified (principal); R06.02 Shortness of breath; I48.91 Unspecified atrial fibrillation
CPT/HCPCS: 36415; 80048; 83880; 85027

== ENCOUNTER → 2020-07-18 15:18 | Outpatient (CLI) | payer MEDICARE, OTHER, SELFPAY ==
[2020-06-17 13:33] VITALS: BMI 36.8
[2020-07-18 17:16] LABS: Absolute Lymphocyte Count 1.24 X10^3/uL (0.83-4.51); Basophil# 0.05 X10^3/uL; Basophil% 0.8 % (0-1); Eosinophil# 0.13 X10^3/uL; Eosinophils% 2.1 % (0-5); Hematocrit 48.2 % (40-54); Hemoglobin 15.9 g/dL (13.0-16.5); Lymphocyte # 1.24 X10^3/ul (0.83-4.51); Lymphocyte % 20.5 % (19-41); Mean Corpuscular Hgb 29.9 pg (27.0-32.0); Mean Corpuscular Volume 90.8 fL (80-94); Mean Platelet Vol. 9.6 fl (6.2-12.0); Monocyte# 0.57 X10^3/uL; Monocyte% 9.4 % (0-10); NRBC Flagged by Analyzer 0 % (0-5); Neutrophil # 4.04 X10^3/uL (2.7-7.7); Neutrophil % 66.9 % (47-70); Platelet Count 145 K/mm3 (150-450); RBC Distribution Width CV 14.3 % (11.6-14.6); RBC Distribution Width SD 47.7 fl (35.1-43.9); Red Blood Count 5.31 M/mm3 (4.6-6.2); White Blood Count 6.1 K/mm3 (4.4-11.0)
[2020-07-18 17:50] LABS: Vitamin D,25 Hydroxy 77.9 ng/mL
[2020-07-18 18:23] LABS: ALB/GLOB Ratio 1.1 RATIO (0.9-2.4); AST(SGOT) 37 U/L (15-37); Alanine Aminotransfer ALT/SGPT 69 U/L (16-61); Albumin, Serum 3.5 g/dL (3.2-5.0); Alkaline Phosphatase 98 U/L (45-117); Anion Gap 5 (5-15); BUN 36 mg/dL (7-18); BUN/Creat Ratio 26.7 RATIO (10-20); Calcium,Total 8.7 mg/dL (8.5-10.1); Chloride 111 mmol/L (98-107); Creatinine, Serum 1.35 mg/dL (0.70-1.30); EST Glomerular Filtration Rate 55 mL/min (>60); Est Glom Filt Rate - Afr Amer 66 mL/min (>60); Globulin 3.1 g/dL (2.2-4.2); Glucose 96 mg/dL (74-106); Phosphorus 3.1 mg/dL (2.5-4.9); Protein, Total 6.6 g/dL (6.4-8.2); Sodium Level 144 mmol/L (136-145); Thyroid Stim Hormone (TSH) 2.45 uIU/mL (0.358-3.74)
== END ==
LOC: LAB.FUTURE 15:19 → POLAB3 15:24
PROVIDERS: PCP Family Medicine Geriatric Medicine; Visit Provider Internal Medicine Nephrology
DX: I12.9 Hypertensive chronic kidney disease with stage 1 through stage 4 chronic kidney disease, or unspecified chronic kidney disease (principal); N18.31 Chronic kidney disease, stage 3a
CPT/HCPCS: 36415; 80053; 82306; 84100; 84443; 85025

== ENCOUNTER → 2020-08-09 13:55 | Outpatient (CLI) | payer MEDICARE, OTHER, SELFPAY ==
[2020-07-26 14:16] VITALS: BMI 37.1
--- NOTE | 2020-08-09 13:56 | ECHOD_ITS ---
Reason For Study: SOB Procedure This was a 2D Doppler, Color Flow transthoracic echocardiogram. The exam was of adequate technical quality. Exam performed in department. Left Ventricle Normal LV size. Left ventricular systolic function is normal. The estimated ejection fraction is 65 %. Unable to assess diastolic dysfunction. No regional wall motion abnormalities noted. Right Ventricle Normal RV size. Normal systolic function. Atria The left atrium is severely enlarged. The right atrium is mildly enlarged. No doppler evidence for ASD. Mitral Valve There is no mitral annular calcification. Mild papillary muscle dysfunction of the mitral valve. Mild-Moderate (1-2+) mitral valve insufficiency. Tricuspid Valve Normal tricuspid valve. Mild to moderate (1-2+) tricuspid valve insufficiency. Right ventricular systolic pressure estimated to be 40 mmHg. Aortic Valve Trisinus/trileaflet aortic valve. Normal aortic valve. Trivial eccentric aortic valve insufficiency. Pulmonic Valve The pulmonic valve is not well visualized. Trivial pulmonic valve insufficiency. Great Vessels Mildly dilated aortic root. Pericardium/Pleural No pericardial effusion. MMode/2D Measurements & Calculations LVIDd: 4.8 cm IVSd: 0.99 cm LVOT diam: 2.0 cm LVIDs: 3.8 cm LVPWd: 1.0 cm LVOT area: 3.3 cm2 RVDd: 4.1 cm FS: 19.5 % Ao root diam: 4.0 cm LAV(MOD-bp): 113.0 ml LA A4 area: 32.0 cm2 LAV(MOD-bp) Indexed: 49.3 ml/m2 LAV(MOD-sp2): 110.2 ml LAV(MOD-sp4): 116.0 ml LA dimension(2D): 5.1 cm RA A4 area: 20.9 cm2 Time Measurements MV dec time: 0.17 sec Doppler Measurements & Calculations MV E max hasmukh: 107.9 cm/sec Ao V2 max: 110.3 cm/sec LV V1 max: 95.8 cm/sec Ao max P.9 mmHg LV V1 max P.7 mmHg Ao V2 mean: 81.5 cm/sec LV V1 mean P.9 mmHg Ao mean P.9 mmHg LV V1 mean: 64.3 cm/sec Ao V2 VTI: 19.0 cm LV V1 VTI: 16.6 cm MARCIE(I,D): 2.9 cm2 MARCIE(V,D): 2.9 cm2 SV(LVOT): 54.4 ml PA V2 max: 56.6 cm/sec PI end-d hasmukh: 154.3 cm/sec TR max hasmukh: 304.7 cm/sec TR max P.1 mmHg ECHO/Echo Complete Interpretation Summary Left ventricular systolic function is normal. The estimated ejection fraction is 65 %. The left atrium is severely enlarged. The right atrium is mildly enlarged. Mild papillary muscle dysfunction of the mitral valve. Mild-Moderate (1-2+) mitral valve insufficiency. Mild to moderate (1-2+) tricuspid valve insufficiency. Trivial eccentric aortic valve insufficiency. Trivial pulmonic valve insufficiency. Mildly dilated aortic root. Right ventricular systolic pressure estimated to be 40 mmHg. Unable to assess diastolic dysfunction. Ordering Physician: Marisol Walker/Shola Norton Referring Physician: GODFREY BARRY Performed By: Rosa M Pollock, YONATAN, RVT
== END ==
PROVIDERS: PCP Family Medicine Geriatric Medicine; Referring Provider Physician Assistant Medical; Visit Provider Physician Assistant Medical
DX: R06.02 Shortness of breath (principal)
CPT/HCPCS: 93306

== ENCOUNTER 2020-09-10 10:23 | Day surgery (SDC) | payer MEDICARE, OTHER, SELFPAY ==
[2020-08-20 15:01] VITALS: BMI 37.4
[2020-08-20 17:22] LABS: Anion Gap 3 (5-15); BUN 31 mg/dL (7-18); BUN/Creat Ratio 24.2 RATIO (10-20); Calcium,Total 8.5 mg/dL (8.5-10.1); Chloride 111 mmol/L (98-107); Creatinine, Serum 1.28 mg/dL (0.70-1.30); EST Glomerular Filtration Rate 58 mL/min (>60); Est Glom Filt Rate - Afr Amer 70 mL/min (>60); Glucose 84 mg/dL (74-106); Potassium 4.3 mmol/L (3.5-5.1); Sodium Level 142 mmol/L (136-145)
--- NOTE | 2020-09-07 10:57 | PCM.HP.BLA ---
History and Physical Date of Admission: 09/10/20 [facility] [address] [place] [address] [id number] OFFICE VISITDate of Service: 08/20/20 MR#:[id number]:[id number]: ERICKA SHELDON [facility] #:[id number]:[id number] Provider: GLENNY Pérez/Sex: 74/M [facility] HPI History of Present Illness Surgical H&P: Yes Details: This is a 74-year-old gentleman that presents here today to discuss a cardioversion. He has a history of coronary artery disease with stenting to his LAD in 2007, paroxysmal atrial fibrillation this was noted during septic shock in 2017, hypertension, hyperlipidemia, obstructive sleep apnea, stage III kidney disease, Barntley's esophagus. He was in here a few weeks ago and had noted an increase in shortness of breath and fatigue. At that time he had not been taking his Eliquis routinely. He has since started doing so. He is not always taking his diuretic routinely, he has since started doing so. He did undergo an echocardiogram which did demonstrate an ejection fraction of 65% with severe left atrial enlargement, mild right atrial enlargement, mild to moderate MR TR. It was felt that based on patient's symptoms he may benefit from a cardioversion. 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 Accompanied by: Is patient in pain?: No Allergies No Known Allergies Allergy (Verified 08/20/20 15:02) Medications acetaminophen 500 mg tablet 500 mg PO Q6H PRN 11/07/18 [History Confirmed 08/20/20] apixaban 5 mg tablet 5 mg PO BID 11/07/18 [History Confirmed 08/20/20] atorvastatin 40 mg tablet 40 mg PO QHS 11/07/18 [History Confirmed 08/20/20] pznsxzhz-eox-prnnn acid 300 mcg-lycopene 600 mcg-lutein 300 mcg tablet 1 tab PO DAILY 11/07/18 [History Confirmed 08/20/20] nitroglycerin 0.4 mg sublingual tablet 0.4 mg SUBLINGUAL Q5-15M PRN 11/07/18 [History Confirmed 08/20/20] pantoprazole 40 mg tablet,delayed release 40 mg PO BID 11/07/18 [History Confirmed 08/20/20] paroxetine HCl 20 mg tablet 20 mg PO DAILY 11/07/18 [History Confirmed 08/20/20] cyanocobalamin (vitamin B-12) 1,000 mcg tablet 1,000 mcg PO BID tab 07/18/19 [History Confirmed 08/20/20] divalproex 250 mg tablet,delayed release 250 mg PO BID 07/18/19 [History Confirmed 08/20/20] metoprolol succinate 200 mg tablet,extended release 24 hr 200 mg PO DAILY tab 07/18/19 [History Confirmed 08/20/20] trospium 20 mg tablet 20 mg PO BID 07/18/19 [History Confirmed 08/20/20] furosemide 20 mg tablet 20 mg PO DAILY PRN 07/26/20 [History Confirmed 08/20/20] Ejection fraction %: 65 to 70 [facility] Medical History Atherosclerosis of coronary artery of pauma heart without angina pectoris Atrial fibrillation Brantley's esophagus with esophagitis Chronic depression Chronic kidney disease, stage 3 Essential hypertension GERD (gastroesophageal reflux disease) History of septic shock (04/02/16) Hyperlipidemia Iron deficiency anemia Obstructive sleep apnea Surgical History History of total left knee replacement History of total right knee replacement Stented coronary artery (04/14/07) Social History Smoking Status: Never smoker alcohol intake: never substance use type: does not use caffeine: Yes Type: carbonated beverages ROS Const Const: Positive for fatigue and weakness; Negative for headache(s), frequent falls, difficulty sleeping or excessive sweating Eyes Eyes: Negative for loss of peripheral vision, transient loss of vision, blurry vision, double vision or tunnel vision ENT ENT: Positive for balance problems; Negative for headache(s), dizziness or Nosebleed/epistaxis Cardio Chest Pain: No Palpitations: Yes (Usually occurs at night) feels like its: fast Edema: Bilateral Muscle aches with walking: None Resp Respiratory: Positive for SOB with activity; Negative for SOB at rest, SOB orthopnea\SOB lying down, Cough or paroxysmal nocturnal dyspnea GI GI: Negative nausea, vomiting, heartburn or black,tarry stools : Negative for hematuria Musc Musc: Positive for muscle weakness, joint pain and balance problems; Negative for muscle aches/ myalgia Skin Skin: Negative non-healing lesions, rash or unusual bruising Neuro Neuro: Positive for weakness; Negative for dizziness, lightheadedness, near syncope, syncope, frequent falls, headache(s), blurry vision, double vision or lack of coordination Olman Hematologic/Lymphatic: Negative for easy bleeding or easy bruising Endo Endo: Positive for fatigue; Negative for excessive sweating or increased thirst/drinking Psych Psych: Negative for anxiety or depression Allergy Allergy/Immunology: Negative for hives and Negative for rash Cardiology Exam Const Appearance: cooperative, comfortable, no acute distress and well developed Orientation: alert, awake and oriented x3 Head Head: normal to inspection Ears: hearing grossly normal bilaterally Nose: external nose normal Face and Sinus: face symmetric Mouth: oral mucosae normal, lip normal and moist mucous membranes Eyes General: appearance normal, both eyes and all related structures Eyelids: eyelids normal Conjunctivae: conjunctivae normal Pupils: PERRL EOM: EOM intact bilaterally Neck Neck: normal visual inspection and trachea midline; Negative no JVD Carotids: Negative bruit Chest Chest inspection: normal inspection of the chest Auscultation: Bilateral: Clear to Auscultation Cardio Palpation: normal PMI Rate: regular rate Rhythm: irregularly irregular Heart sounds: S1 normal and S2 normal; Negative rub, gallop or murmur GI GI: soft, no hepatosplenomegaly and bowel sounds present Neuro General: patient alert, patient awake, patient oriented x3 and CN's II-XI intact bilaterally Extremities Pulses: Normal: Right Posterior Tibial Pulse, Left Posterior Tibial Pulse, Right Radial Pulse and Left Radial Pulse Lower Extremity Edema: +1: Bilateral Psych Psychological: normal affect Assessment and Plan Assessment and Plan (1) Atrial fibrillation: Status: Chronic Comment: onset 03/29/2016 when pt hospitalized for sepsis with Group A strep, Cellulitis RLE Orders: Orders: Cardioversion 08/20/20 Basic Metabolic Profile (BMP) 08/20/20 Plan - Marisol MURRIETA, PA: Pt would like to attempt a cardioversion to see if this does help with him symptoms of worsening SOB. He has been anticoagulated. Will pursue this. He is aware that with his enlarged atrium that this may not hold. Patient Instructions: Your cardioversion is scheduled for 09/10 at noon. You need to arrive at 1030. Nothing to eat or drink after midnight. In the morning take your eliquis, divalproex, metoprolol, pantoprazole, trospium, paroxetine with a small sip of water. 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 We recommend that they continue with current aggressive medical management and risk factor modification. (3) Essential hypertension: Status: Chronic Plan - Marisol MURRIETA PA: Blood pressure is well controlled on current medications, we do not recommend any changes at this time. (4) Hyperlipidemia: Status: Chronic Plan - Marisol MURRIETA PA: Managed by the MT. He will continue with his lipitor. (5) Obstructive sleep apnea: Status: Chronic Plan Details Follow Up: 08/20/20 (keep as is) 08/20/20 (cardioversion scheduled 09/10- can get f/u EKG at his next appt) COVID (Procedure Consent) Procedure Criteria Procedure Criteria: Yes Elective The surgeon/proceduralist and patient have discussed in detail the risk of exposure to and/or potential harm posed by the COVID-19 virus with having a surgery/procedure at this time versus the risk of delaying the surgery/procedure. It is not possible to know either the risk of delaying the surgery or procedure or chance of getting an infection with perfect accuracy, but a joint decision was made between the patient and the surgeon/proceduralist to proceed at this time with the scheduled surgery/procedure as indicated on the consent form. Coding Level of Care Code Off vis,est,level 4 Diagnoses Atrial fibrillation I48.91 Atherosclerosis of coronary artery of pauma heart without angina pectoris I25.10 Essential hypertension I10 Hyperlipidemia E78.5 Obstructive sleep apnea G47.33 Coding Level of Care Code Off vis,est,level 4 Diagnoses Atrial fibrillation I48.91 Atherosclerosis of coronary artery of pauma heart without angina pectoris I25.10 Essential hypertension I10 Hyperlipidemia E78.5 Obstructive sleep apnea G47.33 Supplemental Info Supplemental Information Echocardiogram 2019: Mild concentric left ventricular hypertrophy. The estimated ejection fraction is 65 %. Stage 2 diastolic dysfunction. Mildly dilated right ventricle. The left atrium is severely enlarged. Trivial mitral valve insufficiency. Trivial tricuspid valve insufficiency. Right ventricular systolic pressure estimated to be 40 mmHg. Mild pulmonary hypertension. The study was technically difficult. There is no comparison study available. Contrast injection was performed. Stress echo 2019: The estimated ejection fraction is 65 %. Normal, adequate, treadmill echocardiogram. Negative for ischemia by EKG and echocardiographic criteria. No anginal symptoms noted. Rare PAC noted. Appropriate blood pressure response to exercise. Average exercise capacity for age. Test terminated due to fatigue, leg discomfort and dyspnea. Final LVEF is 75%. No complications. Labs: LDL Cholesterol 56 mg/dL (0-130) HDL Cholesterol 43 mg/dL (40-) Triglycerides 63 mg/dL (-199) VLDL Cholesterol 13 mg/dL (5-40) Diagnostics: Electrocardiogram Echocardiogram Pulmonary: No Data to Display 08/23/20 [id number]<Electronically signed by Marisol MURRIETA>Date Marisol MURRIETA Cosigner Signature:Date (if applicable) CC: Dr. Wilbert Pradhan MD ~ I have re-examined the patient. There are no clinical changes since date of exam.
[2020-09-09 08:25] VITALS: BMI 37.4
--- NOTE | 2020-09-10 13:01 | CARDIOVERS ---
Cardioversion Cardioversion: Date: 09-10-2020 Procedure: Synchronized Biphasic DC Cardioversion Indications: Atrial fibrillation/flutter Consent: Per the Patient Anesthesia: per Dr. Delaney of pulmonology and critical care medicine with propofol 40 mg IV push total Procedure: Synchronized Biphasic DC Cardioversion: 200 J x 1: Result: Sinus rhythm; PACs Complications: no apparent complications This note was generated with [employer] software. It may contain incorrect words, spelling, and punctuation that were not noted in checking the note before signing.
--- NOTE | 2020-09-10 13:11 | PRO.PCM_ITS ---
Assessment & Plan Assessment/Plan (1) Atrial fibrillation: (2) MARTINEZ (dyspnea on exertion): (3) Obstructive sleep apnea: (4) Chronic kidney disease, stage 3: Procedure Report Date of Procedure: 09/10/20 CONSCIOUS SEDATION REPORT BRIEF HISTORY OF PRESENT ILLNESS: The patient is a 75-year-old male who presented to [facility] for an elective outpatient cardioversion due to underlying atrial fibrillation. The patient reports no PO intake since midnight, but is currently therapeutic on anticoagulation. The patient does have a history of obstructive sleep apnea and is compliant with therapy. The patient reports no history of smoking and/or COPD. The patient denies any recent constitutional symptoms such as fevers, chills, nausea or vomiting. The patient denies previous applicable anesthetic complications. Patient's last known ejection fraction was 65% and patient did report taking anticoagulation on the day of the procedure. PHYSICAL EXAMINATION: VITAL SIGNS: Reviewed and were acceptable. GENERAL: The patient is a male, in no apparent distress, speaking in full sentences. HEENT: Normocephalic, atraumatic. Mucous membranes are moist and pink. Good mouth opening noted. Trachea is midline. Good neck mobility. MP III. Patient is hard of hearing. Left hearing aid removed for the procedure CHEST: S1, S2 irregularly irregular. No murmurs, rubs or gallops were noted. LUNGS: Clear to auscultation bilaterally without appreciable wheezes, rales or rhonchi. ABDOMEN: Soft, nontender, nondistended. Positive bowel sounds. EXTREMITIES: There is no clubbing, cyanosis or edema. ASA Class: II DESCRIPTION OF PROCEDURE: After confirmation of informed consent, the patient's anesthesia plan was reviewed in detail. Propofol was chosen. Risks and benefits were reviewed and the patient agreed to proceed. At 12:01 PM, the patient was given 40 mg of propofol. The patient achieved an appropriate level of sedation and received 1 attempt synchronized cardioversion, at [address] Norton at the bedside. This was successful in achieving normal sinus rhythm. The patient was monitored until 12:15 PM, at which time the patient reached their baseline mental status and function. The patient tolerated the procedure well. COMPLICATIONS: None ESTIMATED BLOOD LOSS: None RECOMMENDATIONS: Okay to recover in usual fashion. Procedures Pulmonary CF Procedures Pulmonary: 46123 Con Sedation
== END 2020-09-10 13:10 | disposition home or self-care (01) ==
PROVIDERS: Physician Assistant Medical; PCP Family Medicine Geriatric Medicine; Referring Provider Internal Medicine Cardiovascular Disease; Visit Provider Internal Medicine Cardiovascular Disease
DX: I48.0 Paroxysmal atrial fibrillation (principal); I48.92 Unspecified atrial flutter; R06.09 Other forms of dyspnea; G47.33 Obstructive sleep apnea (adult) (pediatric); I12.9 Hypertensive chronic kidney disease with stage 1 through stage 4 chronic kidney disease, or unspecified chronic kidney disease; N18.30 Chronic kidney disease, stage 3 unspecified; I25.10 Atherosclerotic heart disease of native coronary artery without angina pectoris; E78.5 Hyperlipidemia, unspecified; K21.9 Gastro-esophageal reflux disease without esophagitis; F32.9 Major depressive disorder, single episode, unspecified; Z95.5 Presence of coronary angioplasty implant and graft; Z87.19 Personal history of other diseases of the digestive system; Z79.01 Long term (current) use of anticoagulants; Z79.899 Other long term (current) drug therapy
CPT/HCPCS: 36415; 80048; 92960; 93005; J7040

== ENCOUNTER → 2020-09-26 14:25 | Outpatient (CLI) | payer MEDICARE, OTHER, SELFPAY ==
[2020-09-26 15:55] LABS: PSA,Total- Diagnostic < 0.01 ng/mL (0.0-4.0)
== END ==
LOC: LABSPEC 14:26 → LAB 09-27 06:10
PROVIDERS: PCP Family Medicine Geriatric Medicine; Referring Provider Urology; Visit Provider Urology
DX: C61 Malignant neoplasm of prostate (principal)
CPT/HCPCS: 36415; 84153

== ENCOUNTER → 2020-10-09 07:16 | Outpatient (CLI) | payer MEDICARE, OTHER, SELFPAY | PROVIDERS: PCP Family Medicine Geriatric Medicine; Referring Provider Internal Medicine Cardiovascular Disease; Visit Provider Internal Medicine Cardiovascular Disease | DX: I48.91 Unspecified atrial fibrillation (principal); I25.10 Atherosclerotic heart disease of native coronary artery without angina pectoris | CPT/HCPCS: 93225; 93226 ==

== ENCOUNTER → 2020-11-28 12:34 | Outpatient (CLI) | payer MEDICARE, OTHER, SELFPAY ==
--- NOTE | 2020-11-28 12:39 | RAD_ITS ---
STUDY: X-RAY CHEST REASON FOR EXAM: Male, 75 years old. CARDIOVERSION TECHNIQUE: PA and lateral views of the chest. COMPARISON: None. FINDINGS: The lungs are clear and expanded. There is no demonstrated pleural abnormality. Normal size heart. Normal mediastinum and rosi. Normal visualized pulmonary arteries. Normal visualized aortic arch and descending thoracic aorta. There is no demonstrated abnormality of the visualized soft tissue structures of the upper abdomen. RAD/Chest PA and Lateral IMPRESSION: No acute abnormal cardiopulmonary finding. Electronically Signed: hSola Bowen MD at 22:17 EDT Tel , Service support ,
[2020-11-28 13:48] LABS: International Normalized Ratio 1.3; Prothrombin Time (Protime)PT. 15.5 SECONDS (11.7-14.9)
[2020-11-28 14:35] LABS: Anion Gap 6 (5-15); BUN 39 mg/dL (7-18); BUN/Creat Ratio 28.5 RATIO (10-20); Calcium,Total 8.9 mg/dL (8.5-10.1); Chloride 110 mmol/L (98-107); Creatinine, Serum 1.37 mg/dL (0.70-1.30); EST Glomerular Filtration Rate 54 mL/min (>60); Est Glom Filt Rate - Afr Amer 65 mL/min (>60); Glucose 95 mg/dL (74-106); Potassium 4.2 mmol/L (3.5-5.1); Sodium Level 142 mmol/L (136-145)
== END ==
PROVIDERS: PCP Family Medicine Geriatric Medicine; Referring Provider Nurse Practitioner Gerontology; Visit Provider Nurse Practitioner Gerontology
DX: I48.91 Unspecified atrial fibrillation (principal)
CPT/HCPCS: 36415; 71046; 80048; 85610

== ENCOUNTER 2020-12-03 10:31 | Day surgery (SDC) | payer MEDICARE, OTHER, SELFPAY ==
[2020-12-02 09:41] VITALS: BMI 36.7
--- NOTE | 2020-12-02 18:31 | PCM.HP.BLA ---
History and Physical Date of Admission: 12/03/20 [facility] [id number] [place], [place] [phone] OFFICE VISITDate of Service: 11/28/20 MR#:[id number]:[id number]: ERICKA SHELDON #:[id number]:[id number] Provider: ANT Lainez/Sex: 75/M [facility] HPI HPI History of Present Illness Surgical H&P: Yes Details: This is a 75-year-old gentleman that presents here today to discuss a cardioversion. He has a history of coronary artery disease with stenting to his LAD in 2007, paroxysmal atrial fibrillation this was noted during septic shock in 2017, hypertension, hyperlipidemia, obstructive sleep apnea, stage III kidney disease, Brantley's esophagus. He did undergo an echocardiogram which did demonstrate an ejection fraction of 65% with severe left atrial enlargement, mild right atrial enlargement, mild to moderate MR TR. It was felt that based on patient's symptoms he may benefit from a cardioversion. From a cardiac standpoint, the patient is doing well. He does state he wakes up occasionally and feels like his heart is beating really fast. He denies any chest pain, or pressure. He does state he has chest heaviness and SOB with walking-this is nothing new or worsening. He states when he was cardioverted and in Sinus Rhythm-he did not have this. He denies Orthopnea, and PND. He does not wear a cpap at night. He denies any bleeding issues; no blood in urine, stool or nosebleeds. He does notice a decrease in energy level. He does not have myalgias, or claudication. He does have bilateral lower extremity swelling. He does not take his Lasix like he is suppose to. He does not have sudden weight gain. He denies dizziness, lightheadedness, syncopal or near syncopal episodes, and headaches. Intake Vital Signs 11/28/20 11:17 Height 5 ft 10 in Weight: 256 lb BMI 36.7 BP 132/80 H Blood Pressure Location Lt brachial Position Sitting Respiration 16 Pulse 84 Pulse Source Auscultation Intake Visit Reasons: UPDATE HPI FOR DCCV Flower Stripper Required: No Accompanied by: None Is patient in pain?: No Allergies No Known Allergies Allergy (Verified 11/28/20 11:40) Medications acetaminophen 500 mg tablet 500 mg PO Q6H PRN 11/07/18 [History Confirmed 11/28/20] apixaban 5 mg tablet 5 mg PO BID 11/07/18 [History Confirmed 11/28/20] atorvastatin 40 mg tablet 40 mg PO QHS 11/07/18 [History Confirmed 11/28/20] fibumwpz-qya-gvnjg acid 300 mcg-lycopene 600 mcg-lutein 300 mcg tablet 1 tab PO DAILY 11/07/18 [History Confirmed 11/28/20] nitroglycerin 0.4 mg sublingual tablet 0.4 mg SUBLINGUAL Q5-15M PRN 11/07/18 [History Confirmed 11/28/20] pantoprazole 40 mg tablet,delayed release 40 mg PO BID 11/07/18 [History Confirmed 11/28/20] paroxetine HCl 20 mg tablet 20 mg PO DAILY 11/07/18 [History Confirmed 11/28/20] cyanocobalamin (vitamin B-12) 1,000 mcg tablet 1,000 mcg PO BID tab 07/18/19 [History Confirmed 11/28/20] divalproex 250 mg tablet,delayed release 250 mg PO BID 07/18/19 [History Confirmed 11/28/20] metoprolol succinate 200 mg tablet,extended release 24 hr 200 mg PO DAILY tab 07/18/19 [History Confirmed 11/28/20] trospium 20 mg tablet 20 mg PO BID 07/18/19 [History Confirmed 11/28/20] furosemide 20 mg tablet 20 mg PO DAILY PRN 07/26/20 [History Confirmed 11/28/20] amiodarone 200 mg tablet 200 mg PO DAILY #90 tab 11/28/20 [Rx] clotrimazole-betamethasone 1 %-0.05 % topical cream gm TOPICAL 11/28/20 [History Confirmed 11/28/20] Ejection fraction %: 65 to 70 PFSH Medical History Atherosclerosis of coronary artery of [place] heart without angina pectoris Atrial fibrillation Brantley's esophagus with esophagitis Chronic depression Chronic kidney disease, stage 3 Essential hypertension GERD (gastroesophageal reflux disease) History of septic shock (04/02/16) Hyperlipidemia Iron deficiency anemia Obstructive sleep apnea Surgical History History of total left knee replacement History of total right knee replacement Stented coronary artery (04/14/07) Social History Smoking Status: Never smoker alcohol intake: never substance use type: does not use caffeine: Yes Type: carbonated beverages ROS Const Const: Positive for fatigue; Negative for weakness, fever(s), headache(s), chills, frequent falls, weight gain or weight loss Eyes Eyes: Negative for blind spots, loss of peripheral vision, transient loss of vision, blurry vision, change in vision, double vision, floaters or tunnel vision ENT ENT: Negative for headache(s), dizziness, Nosebleed/epistaxis, balance problems or neck pain Cardio Chest Pain: No Palpitations: Yes (Wakes up with rapid heart rate at times) feels like its: fast Edema: Bilateral Muscle aches with walking: None Resp Respiratory: Positive for SOB with activity (Unchanged); Negative for SOB at rest or SOB orthopnea\SOB lying down GI GI: Negative nausea, vomiting, heartburn, bloating, vomiting blood/hematemesis, bright, red blood in stools or black,tarry stools Musc Musc: Negative for muscle aches/ myalgia, muscle weakness, joint pain or balance problems Neuro Neuro: Negative for dizziness, lightheadedness, near syncope, syncope, orthostatic symptoms, frequent falls, headache(s), weakness, blurry vision or double vision Olman Hematologic/Lymphatic: Negative for easy bleeding or easy bruising Endo Endo: Positive for fatigue Cardiology Exam Const Appearance: cooperative and no acute distress Orientation: alert and oriented x3 Head Head: normal to inspection Ears: hearing grossly normal bilaterally Nose: external nose normal Face and Sinus: face symmetric Eyes General: appearance normal, both eyes and all related structures Eyelids: eyelids normal Conjunctivae: conjunctivae normal Pupils: PERRL and pupil size EOM: EOM intact bilaterally Neck Neck: normal visual inspection Carotids: Negative bruit Chest Chest inspection: normal inspection of the chest and normal respiratory effort Auscultation: Bilateral: Clear to Auscultation Cardio Palpation: normal PMI Rate: regular rate Rhythm: irregularly irregular Heart sounds: S1 normal and S2 normal; Negative rub, gallop or murmur GI GI: normal to inspection and soft; Negative no hepatosplenomegaly Neuro General: patient alert, patient oriented x3 and CN's II-XI intact bilaterally Skin Skin: no rashes or lesions noted Extremities Pulses: Normal: Right Posterior Tibial Pulse, Left Posterior Tibial Pulse, Right Radial Pulse and Left Radial Pulse Lower Extremity Edema: +1: Bilateral Psych Psychological: normal affect Assessment and Plan Assessment and Plan (1) Atrial fibrillation: Status: Chronic Comment: onset 03/29/2016 when pt hospitalized for sepsis with Group A strep, Cellulitis RLE Orders: Orders: 12 Lead EKG performed by [facility] Today Basic Metabolic Profile (BMP) Today Prothrombin Time w/INR Today Cardioversion 12/03/20 Chest PA and Lateral Today Elisa Radford NP, TWISTING MACHINE OPERATOR-C: Patient has a history of persistent atrial fibrillation. He appears to be in an irregularly irregular rhythm on exam today. Due to patients symptoms of chest heaviness and SOB, he would like to attempt a cardioversion again while taking amiodarone. Patient will be scheduled for a cardioversion on 12/03/2020. He will continue his Eliquis, and amiodarone. He will follow up 1 week post cardioversion for an EKG to evaluate his rhythm. (2) Atherosclerosis of coronary artery of [place] heart without angina pectoris: Status: Chronic Elisa Radford NP, TWISTING MACHINE OPERATOR-C: Patient has a history of coronary artery disease. He denies any recent symptoms or events. He will continue with his current medications. We will continue to monitor. (3) Essential hypertension: Status: Chronic Orders: Orders: 12 Lead EKG performed by [facility] Today Elisa Radford NP, TWISTING MACHINE OPERATOR-C: Patient has a history of hypertension. His blood pressure is well controlled at today's office visit. He will continue with his current medications at this time. (4) Hyperlipidemia: Status: Chronic Elisa Radford NP, TWISTING MACHINE OPERATOR-C: He does have a history of hyperlipidemia. His PCP monitors this. He will continue atorvastatin 40mg daily. Plan Details Other Medications: New: amiodarone 200 mg PO DAILY 90 tabs 3RF Additional Comments: Patient will follow up 1 week post cardioversion for an EKG, or sooner if needed. Thank you for allowing me to participate in the care of your patient. Please don't hesitate to call if any issues arise. This note was generated using a voice recognition system and there may be incorrect words, spelling, or punctuation that were not noted when reviewing the office note prior to saving. Follow Up: Keep as is (MMM) 1 week after cardioversion for EKG (Nurse) COVID (Procedure Consent) Procedure Criteria Procedure Criteria: Yes Elective The surgeon/proceduralist and patient have discussed in detail the risk of exposure to and/or potential harm posed by the COVID-19 virus with having a surgery/procedure at this time versus the risk of delaying the surgery/procedure. It is not possible to know either the risk of delaying the surgery or procedure or chance of getting an infection with perfect accuracy, but a joint decision was made between the patient and the surgeon/proceduralist to proceed at this time with the scheduled surgery/procedure as indicated on the consent form. Coding Level of Care Code Off vis,est,level 4 Diagnoses Atrial fibrillation I48.91 Atherosclerosis of coronary artery of [place] heart without angina pectoris I25.10 Essential hypertension I10 Hyperlipidemia E78.5 Coding Level of Care Code Off vis,est,level 4 Diagnoses Atrial fibrillation I48.91 Atherosclerosis of coronary artery of [place] heart without angina pectoris I25.10 Essential hypertension I10 Hyperlipidemia E78.5 Supplemental Info Supplemental Information Echocardiogram 08/09/2020: Interpretation Summary Left ventricular systolic function is normal. The estimated ejection fraction is 65 %. The left atrium is severely enlarged. The right atrium is mildly enlarged. Mild papillary muscle dysfunction of the mitral valve. Mild-Moderate (1-2+) mitral valve insufficiency. Mild to moderate (1-2+) tricuspid valve insufficiency. Trivial eccentric aortic valve insufficiency. Trivial pulmonic valve insufficiency. Mildly dilated aortic root. Right ventricular systolic pressure estimated to be 40 mmHg. Unable to assess diastolic dysfunction. Echocardiogram 2019: Mild concentric left ventricular hypertrophy. The estimated ejection fraction is 65 %. Stage 2 diastolic dysfunction. Mildly dilated right ventricle. The left atrium is severely enlarged. Trivial mitral valve insufficiency. Trivial tricuspid valve insufficiency. Right ventricular systolic pressure estimated to be 40 mmHg. Mild pulmonary hypertension. The study was technically difficult. There is no comparison study available. Contrast injection was performed. Stress echo 2019: The estimated ejection fraction is 65 %. Normal, adequate, treadmill echocardiogram. Negative for ischemia by EKG and echocardiographic criteria. No anginal symptoms noted. Rare PAC noted. Appropriate blood pressure response to exercise. Average exercise capacity for age. Test terminated due to fatigue, leg discomfort and dyspnea. Final LVEF is 75%. No complications. Labs: LDL Cholesterol 56 mg/dL (0-130) HDL Cholesterol 43 mg/dL (40-) Triglycerides 63 mg/dL (-199) VLDL Cholesterol 13 mg/dL (5-40) Diagnostics: Electrocardiogram Echocardiogram Stress Echocardiogram Venous Doppler Study Pulmonary: No Data to Display 11/28/20 1437<Electronically signed by Divine Radford NP TWISTING MACHINE OPERATOR-C>Date Divine Radford NP TWISTING MACHINE OPERATOR-C Cosigner Signature:Date (if applicable) CC: Dr. Wilbert Pradhan MD ~ Assessment & Plan Addt'l Comments I have re-examined the patient. There are no clinical changes since date of exam.
--- NOTE | 2020-12-03 12:02 | CARDIOVERS ---
Cardioversion Cardioversion: Date: 12-03-2020 Procedure: Synchronized Biphasic DC Cardioversion Indications: Atrial fibrillation Consent: Per the Patient Anesthesia: per Dr. Delaney of pulmonology and critical care medicine with propofol 40 mg IV push total Procedure: Synchronized Biphasic DC Cardioversion: 200 J x 1: Result: Sinus rhythm/sinus bradycardia; PACs Complications: no apparent complications This note was generated with [employer] software. It may contain incorrect words, spelling, and punctuation that were not noted in checking the note before signing.
--- NOTE | 2020-12-03 15:52 | PCM.OP.PRO ---
Assessment & Plan Assessment/Plan (1) Atrial fibrillation: (2) Obstructive sleep apnea: Procedure Report Date of Procedure: 12/03/20 CONSCIOUS SEDATION REPORT BRIEF HISTORY OF PRESENT ILLNESS: The patient is a 75-year-old male who presented to [facility] for an elective outpatient cardioversion due to underlying atrial fibrillation. The patient reports no PO intake since midnight, but is currently therapeutic on anticoagulation. The patient does have a history of obstructive sleep apnea and is compliant with therapy. The patient reports no history of smoking and COPD. The patient denies any recent constitutional symptoms such as fevers, chills, nausea or vomiting. The patient denies previous applicable anesthetic complications. Patient's last known ejection fraction was 65% and he reports compliance with Eliquis therapy on the day of the procedure. PHYSICAL EXAMINATION: VITAL SIGNS: Reviewed and were acceptable. GENERAL: The patient is a male, in no apparent distress, speaking in full sentences. HEENT: Normocephalic, atraumatic. Mucous membranes are moist and pink. Good mouth opening noted. Trachea is midline. Good neck mobility. MP III CHEST: S1, S2 irregularly irregular. No murmurs, rubs or gallops were noted. LUNGS: Clear to auscultation bilaterally without appreciable wheezes, rales or rhonchi. ABDOMEN: Soft, nontender, nondistended. Positive bowel sounds. EXTREMITIES: There is no clubbing, cyanosis or edema. ASA Class: II DESCRIPTION OF PROCEDURE: After confirmation of informed consent, the patient's anesthesia plan was reviewed in detail. Propofol was chosen. Risks and benefits were reviewed and the patient agreed to proceed. At 11:51 AM, the patient was given 40 mg of propofol. The patient achieved an appropriate level of sedation and received 1 attempt synchronized cardioversion, at [address] Norton at the bedside. This was successful in achieving normal sinus rhythm. The patient was monitored until 12:04 PM, at which time the patient reached their baseline mental status and function. The patient tolerated the procedure well. COMPLICATIONS: None ESTIMATED BLOOD LOSS: None RECOMMENDATIONS: Okay to recover in usual fashion. Procedures Pulmonary 9xxxx: [id number] Con Sedation
== END 2020-12-03 13:20 | disposition home or self-care (01) ==
LOC: CLSP 10:32
PROVIDERS: PCP Family Medicine Geriatric Medicine; Referring Provider Internal Medicine Cardiovascular Disease; Visit Provider Internal Medicine Cardiovascular Disease
DX: I48.0 Paroxysmal atrial fibrillation (principal); G47.33 Obstructive sleep apnea (adult) (pediatric); I25.10 Atherosclerotic heart disease of native coronary artery without angina pectoris; E78.5 Hyperlipidemia, unspecified; I12.9 Hypertensive chronic kidney disease with stage 1 through stage 4 chronic kidney disease, or unspecified chronic kidney disease; N18.30 Chronic kidney disease, stage 3 unspecified; F32.A Depression, unspecified; K21.9 Gastro-esophageal reflux disease without esophagitis; Z95.5 Presence of coronary angioplasty implant and graft; Z79.899 Other long term (current) drug therapy; Z79.01 Long term (current) use of anticoagulants
CPT/HCPCS: 92960; 93005; J7040

== ENCOUNTER → 2020-12-24 15:29 | Outpatient (CLI) | payer MEDICARE, OTHER, SELFPAY ==
[2020-12-24 17:20] LABS: Absolute Lymphocyte Count 0.77 X10^3/uL (0.83-4.51); Absolute Neutrophil Count 5.5 X10^3/uL (2.0-7.7); Basophil# 0.03 X10^3/uL; Basophil% 0.4 % (0-1); Eosinophil# 0.14 X10^3/uL; Eosinophils% 1.9 % (0-5); Hematocrit 45.1 % (40-54); Lymphocyte # 0.77 X10^3/ul (0.83-4.51); Lymphocyte % 10.5 % (19-41); Mean Corp Hgb Conc 33.3 g/dL (32-36); Mean Corpuscular Hgb 30.3 pg (27.0-32.0); Mean Corpuscular Volume 91.1 fL (80-94); Monocyte# 0.83 X10^3/uL; Monocyte% 11.3 % (0-10); NRBC Flagged by Analyzer 0 % (0-5); Neutrophil # 5.54 X10^3/uL (2.7-7.7); Neutrophil % 75.6 % (47-70); Platelet Count 141 K/mm3 (150-450); RBC Distribution Width CV 14.7 % (11.6-14.6); RBC Distribution Width SD 49.1 fl (35.1-43.9); Red Blood Count 4.95 M/mm3 (4.6-6.2); White Blood Count 7.3 K/mm3 (4.4-11.0)
[2020-12-24 17:42] LABS: Anion Gap 4 (5-15); BUN 25 mg/dL (7-18); BUN/Creat Ratio 19.5 RATIO (10-20); Calcium,Total 9.1 mg/dL (8.5-10.1); Chloride 100 mmol/L (98-107); Creatinine, Serum 1.28 mg/dL (0.70-1.30); EST Glomerular Filtration Rate 58 mL/min (>60); Est Glom Filt Rate - Afr Amer 70 mL/min (>60); Glucose 146 mg/dL (74-106); Potassium 4.1 mmol/L (3.5-5.1); Sodium Level 137 mmol/L (136-145)
== END ==
PROVIDERS: PCP Family Medicine Geriatric Medicine; Visit Provider Family Medicine Geriatric Medicine
DX: N39.0 Urinary tract infection, site not specified (principal); R53.83 Other fatigue
CPT/HCPCS: 36415; 80048; 85025; 87086

== ENCOUNTER 2021-01-09 00:08 | Emergency (ER) | payer MEDICARE, OTHER, SELFPAY ==
[2021-01-09] VITALS (18 sets, daily range): BP systolic 111–163; BP diastolic 62–114; PULSE 46–104; RESP 13–21; TEMP 36.8; O2SAT 92–98; BMI 37.7
--- NOTE | 2021-01-09 00:43 | RAD_ITS ---
STUDY: X-RAY CHEST REASON FOR EXAM: Male, 75 years old. chest pain TECHNIQUE: Single AP portable view of the chest. COMPARISON: None. FINDINGS: The lungs are underexpanded with bilateral right perihilar and left basilar atelectasis, otherwise lung lauren are clear. There is no demonstrated pleural abnormality. Normal size heart. Normal mediastinum and rosi. Normal visualized pulmonary arteries. Normal visualized aortic arch and descending thoracic aorta. Normal visualized thoracic spine. There is degenerative osteoarthritis of the bilateral shoulders. There is no demonstrated abnormality of the visualized soft tissue structures of the upper abdomen. RAD/Chest 1 View (Portable) IMPRESSION: Bilateral atelectasis as described. Otherwise no acute cardiopulmonary disease. Electronically Signed: Elina Parsons MD at 1:07 EST , Service support ,
--- NOTE | 2021-01-09 00:43 | EKG12_ITS ---
Test Reason : CP Blood Pressure : / mmHG Vent. Rate : 111 BPM Atrial Rate : 127 BPM P-R Int : 000 ms QRS Dur : 086 ms QT Int : 358 ms P-R-T Axes : 000 003 050 degrees QTc Int : 486 ms Atrial fibrillation with premature ventricular or aberrantly conducted complexes Nonspecific ST and T wave abnormality Abnormal ECG Confirmed by ACE CHAUDHARY, ONUR ([id number]), newspaper managing editor ANISH SMITH ([id number]) on 01/13/2021 9:27:39 AM Referred By: LAY Confirmed By:YESENIA BELLO MD
--- NOTE | 2021-01-09 00:44 | EDS_ITS ---
HPI History of Present Illness Chief Complaint: Chest Pain Onset/Context/Timing Onset: Hours (2) Activity at onset: sudden and activity on onset (Walking from one room to the other in his house) Timing: Continuous Quality: Positive for Heaviness Location: Substernal (Without radiation) Current Severity: Gone Maximum Severity: Moderate Worsened By: Nothing; Not Worsened By Breathing Relieved By: NTG (x2) Associated Symptoms: Positive for Dyspnea; Negative for Nausea, Vomiting, Diaphoresis, Cough, Fever, Lightheadedness, Acid Reflux and Palpitations Narrative Narrative: Patient with a history of CAD and atrial fibrillation presenting with sudden onset of nonpleuritic chest heaviness while going to get something for his in their house. He has had 2 relatively recent cardioversions, he states the first 1 lasted 5 days and the last one that he had was 5 weeks ago. He did not know he was in atrial fibrillation tonight until he checked his pulse oximetry and his heart rate was fast and irregular. The last time he checked it and was not in atrial fibrillation was either last night or this morning. He is on amiodarone and has been compliant with it. Also Eliquis. No bleeding from anywhere. [facility] Medical History (Updated 01/09/21 @ 03:[address] Prasanna Mullen MD) Atherosclerosis of coronary artery of [place] heart without angina pectoris Atrial fibrillation Brantley's esophagus with esophagitis Chronic depression Chronic kidney disease, stage 3 Essential hypertension GERD (gastroesophageal reflux disease) History of septic shock (04/02/16) Hyperlipidemia Iron deficiency anemia Obstructive sleep apnea Home Medications acetaminophen 500 mg tablet 500 mg PO Q6H PRN 11/07/18 [History Last Taken Unknown] apixaban 5 mg tablet 5 mg PO BID 11/07/18 [History Last Taken 12/03/20] atorvastatin 40 mg tablet 40 mg PO QHS 11/07/18 [History Last Taken Unknown] zojksokt-uwc-kqiqn acid 300 mcg-lycopene 600 mcg-lutein 300 mcg tablet 1 tab PO DAILY 11/07/18 [History Last Taken Unknown] nitroglycerin 0.4 mg sublingual tablet 0.4 mg SUBLINGUAL Q5-15M PRN 11/07/18 [History Last Taken Unknown] pantoprazole 40 mg tablet,delayed release 40 mg PO BID 11/07/18 [History Last Taken 09/10/20] paroxetine HCl 20 mg tablet 20 mg PO DAILY 11/07/18 [History Last Taken Unknown] cyanocobalamin (vitamin B-12) 1,000 mcg tablet 1,000 mcg PO BID tab 07/18/19 [History Last Taken Unknown] divalproex 250 mg tablet,delayed release 250 mg PO BID 07/18/19 [History Last Taken Unknown] metoprolol succinate 200 mg tablet,extended release 24 hr 200 mg PO DAILY tab 07/18/19 [History Last Taken 12/03/20] trospium 20 mg tablet 20 mg PO BID 07/18/19 [History Last Taken 12/03/20] furosemide 20 mg tablet 20 mg PO DAILY PRN 07/26/20 [History Last Taken Unknown] amiodarone 200 mg tablet 200 mg PO DAILY #90 tab 11/28/20 [Rx Last Taken Unknown] clotrimazole-betamethasone 1 %-0.05 % topical cream 1 gm TOPICAL DAILY 11/28/20 [History Last Taken Unknown] Allergy/AdvReac Type Severity Reaction Status Date / Time No Known Allergies Allergy Verified 01/09/21 00:16 Surgical History History of total left knee replacement History of total right knee replacement Stented coronary artery (04/14/07) Social History Smoking Status: Never smoker alcohol intake: never substance use type: does not use caffeine: Yes Type: carbonated beverages ROS ROS ED Constitutional Constitutional ED: Denies chills or fever(s) Eyes Eyes: Denies change in vision or diplopia ENT ENT ED: Denies rhinorrhea or sore throat Cardiovascular Cardiovascular: Reports chest pain and other Details: Chronic lower extremity edema unchanged compared with usual ; Denies palpitations Respiratory/Chest Respiratory/Chest: Reports other Details: Dyspnea, resolved with nitroglycerin given by EMS ; Denies cough Gastrointestinal Gastrointestinal: Denies abdominal pain, diarrhea, nausea or vomiting Genitourinary Genitourinary ED: Denies dysuria or hematuria Musculoskeletal Musculoskeletal: Denies back pain or neck pain Integumentary Denies abscess or rash Neurologic Neurologic: Denies headache(s), paresthesias or weakness Psychiatric Psychiatric: Denies anxiety or suicidal thoughts EXAM Physical Exam Const Vital Signs: 01/09/21 00:09 01/09/21 00:17 01/09/21 00:51 Temperature 98.3 F Temperature Source Temporal Pulse Rate 104 H 97 Pulse Rate [1 (Initial Baseline)] Respiratory Rate 18 Respiratory Rate [1 (Initial Baseline)] Respiratory Effort Normal Respiratory Pattern Normal Blood Pressure 157/114 H 141/114 H Blood Pressure [1 (Initial Baseline)] Blood Pressure Mean 128 Pulse Ox 96 Oxygen Delivery Method Room Air Oxygen Delivery Method [1 (Initial Baseline)] Oxygen Delivery Method [2] Oxygen Delivery Method [3] Oxygen Flow Rate (L/min) Oxygen Flow Rate (L/min) [2] Oxygen Flow Rate (L/min) [3] 01/09/21 01:20 01/09/21 01:21 01/09/21 02:01 Temperature Temperature Source Pulse Rate 62 63 Pulse Rate [1 (Initial Baseline)] Respiratory Rate 21 H 17 Respiratory Rate [1 (Initial Baseline)] Respiratory Effort Respiratory Pattern Blood Pressure 113/79 125/74 H Blood Pressure [1 (Initial Baseline)] Blood Pressure Mean 90 91 Pulse Ox 93 95 Oxygen Delivery Method Room Air Room Air Room Air Oxygen Delivery Method [1 (Initial Baseline)] Oxygen Delivery Method [2] Oxygen Delivery Method [3] Oxygen Flow Rate (L/min) Oxygen Flow Rate (L/min) [2] Oxygen Flow Rate (L/min) [3] 01/09/21 03:08 01/09/21 03:25 01/09/21 03:27 Temperature Temperature Source Pulse Rate 64 79 Pulse Rate [1 (Initial Baseline)] 64 Respiratory Rate 17 20 H Respiratory Rate [1 (Initial Baseline)] 17 Respiratory Effort Respiratory Pattern Blood Pressure 115/78 141/85 H Blood Pressure [1 (Initial Baseline)] 115/78 Blood Pressure Mean 90 103 Pulse Ox 93 98 Oxygen Delivery Method Room Air Room Air Nasal Cannula Oxygen Delivery Method [1 (Initial Baseline)] Room Air Oxygen Delivery Method [2] Nasal Cannula Oxygen Delivery Method [3] Nasal Cannula Oxygen Flow Rate (L/min) 2 Oxygen Flow Rate (L/min) [2] 2 Oxygen Flow Rate (L/min) [3] 2 01/09/21 03:29 01/09/21 03:33 01/09/21 03:39 Temperature Temperature Source Pulse Rate 46 L 46 L 46 L Pulse Rate [1 (Initial Baseline)] Respiratory Rate 14 15 14 Respiratory Rate [1 (Initial Baseline)] Respiratory Effort Respiratory Pattern Blood Pressure 111/71 144/78 H 111/71 Blood Pressure [1 (Initial Baseline)] Blood Pressure Mean Pulse Ox 97 97 97 Oxygen Delivery Method Nasal Cannula Nasal Cannula Nasal Cannula Oxygen Delivery Method [1 (Initial Baseline)] Oxygen Delivery Method [2] Oxygen Delivery Method [3] Oxygen Flow Rate (L/min) 2 2 Oxygen Flow Rate (L/min) [2] Oxygen Flow Rate (L/min) [3] 01/09/21 03:43 Temperature Temperature Source Pulse Rate 47 L Pulse Rate [1 (Initial Baseline)] Respiratory Rate 13 Respiratory Rate [1 (Initial Baseline)] Respiratory Effort Respiratory Pattern Blood Pressure 113/74 Blood Pressure [1 (Initial Baseline)] Blood Pressure Mean Pulse Ox 94 Oxygen Delivery Method Room Air Oxygen Delivery Method [1 (Initial Baseline)] Oxygen Delivery Method [2] Oxygen Delivery Method [3] Oxygen Flow Rate (L/min) Oxygen Flow Rate (L/min) [2] Oxygen Flow Rate (L/min) [3] Positive well nourished and well developed General Appearance ED: well developed and NAD HEENT Reports moist mucous membranes normocephalic and atraumatic Eyes PERRL and EOMs intact bilaterally Neck full ROM and supple Resp normal respiratory effort and clear to auscultation bilaterally Cardio no murmurs and no JVD Rate: tachycardic Rhythm: abnormal rhythm regularly irregular GI non-tender and non-distended Auscultation: normoactive bowel sounds Palpation: soft Back/Spine no CVA tenderness General Back: other FROM Extremity normal to inspection General Extremety ED: Yes edema; Negative for pulses abnormal or tenderness General Extremity: edema bilateral lower extremity Details: moderate; Negative for pulses abnormal Neuro oriented x3, CN's II-XII intact bilaterally and no sensory deficits noted Sensorium / Orientation: awake and alert Motor Exam: strength 5/5 throughout Skin no rashes or lesions noted and no wounds Heart Score History: Highly Suspicious ECG: Nonspecific Repolarization Age: >/= 65 years Risk Factors: >/= 3 Risk Factors or History of CAD Score: 7 MDM MDM MDM Narrative Medical decision making narrative: Half-inch nitroglycerin paste was placed in the patient's chest and he was given Cardizem 20 mg IV bolus. On reevaluation his heart rate is in the 70s he is feeling fine. He is still in atrial fibrillation. His initial round of labs are unremarkable along with a troponin well within normal limits at 28. No ischemic abnormalities on his EKG. Looking at his recent cardiology note in November, they cardioverted him because he was having chest heaviness and shortness of breath, similar to what he had tonight, whenever he would walk. When he was in sinus rhythm, the symptoms would not come on. He had a negative stress echocardiogram 2 years ago. We do not have any beds in the hospital to admit him to right now for observation and enzymes cycling, therefore I performed a 2-hour delta troponin in the emergency department. It went up just slightly, from 28-35. Patient is still chest pain- free, his rate even after the delta is in the 60s-70s. Discussed with cardiology Dr. Haro, given his A. fib with RVR he recommends discharge home with close outpatient follow-up and trying to cardiovert him first since he is chronically anticoagulated. Patient was comfortable with that plan, and cardioversion was done successfully. Lab Data Attestation: I reviewed the patient's lab results. Labs: Laboratory Results - last 24 hr 01/09/21 01/09/21 01/09/21 00:20 00:20 02:18 WBC 5.2 RBC 4.88 Hgb 14.9 Hct 45.1 MCV 92.4 MCH 30.5 MCHC 33.0 RDW Std Deviation 50.1 H RDW Coeff of [place] 14.9 H Plt Count 222 MPV 9.5 Immature Gran % (Auto) 0.600 Neut % (Auto) 54.3 Lymph % (Auto) 31.5 [place] % (Auto) 8.8 Eos % (Auto) 3.5 Baso % (Auto) 1.3 H Absolute Neuts (auto) 2.8 Absolute Lymphs (auto) 1.64 Nucleated RBC % 0 Sodium 142 Potassium 3.9 Chloride 106 Carbon Dioxide 31.0 Anion Gap 5 BUN 22 H Creatinine 1.20 Estim Creat Clear Calc 54.07 Est GFR (MDRD) Af Amer 76 Est GFR (MDRD) Non-Af 63 BUN/Creatinine Ratio 18.3 Glucose 105 Calcium 8.7 Troponin I High Sens 28 35 Radiography Diagnostic Testing: Clinical Impression(s) from Imaging Studies Chest X-Ray 01/09/21 00:43 IMPRESSION: Bilateral atelectasis as described. Otherwise no acute cardiopulmonary disease. Electronically Signed: Elina Mischiu, MD at 1:07 EST , Service support , EKG Initial EKG: Attestation: I personally reviewed and interpreted this EKG as follows: Interpretation: No Acute Injury Pattern and Atrial Fibrillation (w/ RVR) Prior EKG tracings: available for review Prior: Changed (Sinus bradycardia) post-cardioversion: Attestation: I personally reviewed and interpreted this EKG as follows: Interpretation: No Acute Injury Pattern and Sinus Bradycardia Prior: Changed Procedures Other Procedures Procedure(s): Procedural sedation: After informed consent, putting patient on the monitor, providing oxygen, and IV fluids as needed, patient was pretreated with fentanyl 25 mcg followed by etomidate 10 mg IV push. Patient was adequately sedated, vital signs are being monitored, he recovered uneventfully, there were no complications. Procedural sedation time: 18 minutes. Electrocardioversion: After informed consent and procedural sedation, pads were placed on the patient, one on his right upper chest and 1 on his left lateral lower chest, and with 1 synchronized cardioversion using 200 J biphasic energy, he was successfully cardioverted to normal sinus rhythm in the high 40s. No complications, tolerated well. 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, Discussing w/Consultants and Performing Direct Patient Care at Bedside Discharge Plan Triage Chief Complaint: Chest Pain ED Provider: Prasanna Mullen Dx/Rx/DC Orders Clinical Impression: Chest pain, Atrial fibrillation with RVR Instructions: ED AFIB, ED Chest Pain, Uncertain Cause Prescriptions: No Action pantoprazole 40 mg tablet,delayed release (DR/EC) 40 mg PO BID RF: 0 Eliquis 5 mg tablet 5 mg PO BID RF: 0 atorvastatin 40 mg tablet 40 mg PO QHS RF: 0 Centrum Silver Men 300-600-300 mcg tablet 1 tab PO DAILY RF: 0 acetaminophen [Tylenol Extra Strength] 500 mg tablet 500 mg PO Q6H PRN (Reason: Pain) RF: 0 nitroglycerin 0.4 mg tablet, sublingual 0.4 mg SUBLINGUAL Q5-15M PRN (Reason: Chest Pain) RF: 0 paroxetine HCl 20 mg tablet 20 mg PO DAILY RF: 0 cyanocobalamin (vitamin B-12) [Vitamin B-12] 1,000 mcg tablet 1,000 mcg PO BID RF: 0 divalproex 250 mg tablet,delayed release (DR/EC) 250 mg PO BID RF: 0 trospium 20 mg tablet 20 mg PO BID RF: 0 metoprolol succinate 200 mg tablet extended release 24 hr 200 mg PO DAILY RF: 0 furosemide 20 mg tablet 20 mg PO DAILY PRN (Reason: weight gain) RF: 0 clotrimazole-betamethasone 1-0.05 % cream 1 gm topical DAILY RF: 0 amiodarone 200 mg tablet 200 mg PO DAILY Qty: 90 RF: 3 Primary Care Provider: Wilbert Pradhan Chi Referrals: Shola Norton MD [STAFF PHYSICIAN] - 3-5 Days Wilbert Pradhan Chi, MD [Primary Care Provider] - Disposition Disposition: Home, Self Care
[2021-01-09 00:51] LABS: Absolute Lymphocyte Count 1.64 X10^3/uL (0.83-4.51); Absolute Neutrophil Count 2.8 X10^3/uL (2.0-7.7); Basophil# 0.07 X10^3/uL; Basophil% 1.3 % (0-1); Eosinophil# 0.18 X10^3/uL; Eosinophils% 3.5 % (0-5); Hematocrit 45.1 % (40-54); Hemoglobin 14.9 g/dL (13.0-16.5); Lymphocyte # 1.64 X10^3/ul (0.83-4.51); Lymphocyte % 31.5 % (19-41); Mean Corpuscular Hgb 30.5 pg (27.0-32.0); Mean Corpuscular Volume 92.4 fL (80-94); Mean Platelet Vol. 9.5 fl (6.2-12.0); Monocyte# 0.46 X10^3/uL; Monocyte% 8.8 % (0-10); NRBC Flagged by Analyzer 0 % (0-5); Neutrophil # 2.82 X10^3/uL (2.7-7.7); Neutrophil % 54.3 % (47-70); Platelet Count 222 K/mm3 (150-450); RBC Distribution Width CV 14.9 % (11.6-14.6); RBC Distribution Width SD 50.1 fl (35.1-43.9); Red Blood Count 4.88 M/mm3 (4.6-6.2); White Blood Count 5.2 K/mm3 (4.4-11.0)
[2021-01-09] MEDS: Nitroglycerin Oint 1 INCH PACKET 0.5 INCH TRANSDERM. (00:51)
[2021-01-09] MEDS: dilTIAZem 25 MG/5 ML Vial 20 MG IV BOLUS (00:51)
[2021-01-09 01:04] LABS: Anion Gap 5 (5-15); BUN 22 mg/dL (7-18); BUN/Creat Ratio 18.3 RATIO (10-20); Calcium,Total 8.7 mg/dL (8.5-10.1); Chloride 106 mmol/L (98-107); EST Glomerular Filtration Rate 63 mL/min (>60); Est Glom Filt Rate - Afr Amer 76 mL/min (>60); Estimated Creatinine Clearance 54.07 ml/min; Glucose 105 mg/dL (74-106); Potassium 3.9 mmol/L (3.5-5.1); Sodium Level 142 mmol/L (136-145); Troponin-I HS 28 pg/mL (3.0-78.0)
[2021-01-09 02:49] LABS: Troponin-I HS 35 pg/mL (3.0-78.0)
--- NOTE | 2021-01-09 03:05 | ED.RN ---
Patients had called asking for an update. RN informed that we would like to keep him for observation at this time. Patient states she thinks the stent may have failed. RN stated she will let the doctor know. states she will be going to bed. the phone will be by her ear if we have any questions or updates
[2021-01-09] MEDS: Etomidate 20 MG/10 ML Vial 10 MG IV (03:26)
[2021-01-09] MEDS: fentaNYL 100 MCG/2 ML Ampul 25 MCG IV (03:27)
--- NOTE | 2021-01-09 03:38 | EKG12_ITS ---
Test Reason : REPEAT Blood Pressure : / mmHG Vent. Rate : 047 BPM Atrial Rate : 047 BPM P-R Int : 198 ms QRS Dur : 086 ms QT Int : 502 ms P-R-T Axes : 035 -03 031 degrees QTc Int : 444 ms Sinus bradycardia Otherwise normal ECG Confirmed by ACE CHAUDHARY, ONUR ([id number]), state editor ANISH SMITH ([id number]) on 01/13/2021 9:28:29 AM Referred By: LAY Confirmed By:YESENIA BELLO MD
--- NOTE | 2021-01-09 04:04 | ED.RN ---
patients has been called. This RN has left a message that patient will need a ride home and to call ED back when she gets this message. 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 Will call back again.
--- NOTE | 2021-01-09 05:12 | ED.RN ---
PATIENTS HAS CALLED BACK. SHE HAS TAKEN SLEEP MEDICATION. CANNOT DRIVE AT THIS TIME. DR. GUTIERRES NOTIFIED.
== END 2021-01-09 10:16 | disposition home or self-care (01) ==
PROVIDERS: Emergency Provider Emergency Medicine; PCP Family Medicine Geriatric Medicine
DX: R07.9 Chest pain, unspecified (principal); I48.20 Chronic atrial fibrillation, unspecified; G47.33 Obstructive sleep apnea (adult) (pediatric); I25.10 Atherosclerotic heart disease of native coronary artery without angina pectoris; E78.5 Hyperlipidemia, unspecified; K21.9 Gastro-esophageal reflux disease without esophagitis; I12.9 Hypertensive chronic kidney disease with stage 1 through stage 4 chronic kidney disease, or unspecified chronic kidney disease; N18.30 Chronic kidney disease, stage 3 unspecified; Z79.899 Other long term (current) drug therapy; Z79.01 Long term (current) use of anticoagulants
CPT/HCPCS: 71045; 80048; 84484; 85025; 92960; 93005; 96374; 96375; 99285; A4216

== ENCOUNTER → 2021-01-16 11:04 | Outpatient (CLI) | payer MEDICARE, OTHER, SELFPAY ==
[2021-01-16 15:36] LABS: Absolute Lymphocyte Count 1.22 X10^3/uL (0.83-4.51); Absolute Neutrophil Count 2.6 X10^3/uL (2.0-7.7); Basophil# 0.04 X10^3/uL; Basophil% 0.9 % (0-1); Eosinophil# 0.26 X10^3/uL; Eosinophils% 5.5 % (0-5); Hematocrit 42.6 % (40-54); Hemoglobin 14.1 g/dL (13.0-16.5); Lymphocyte # 1.22 X10^3/ul (0.83-4.51); Mean Corp Hgb Conc 33.1 g/dL (32-36); Mean Corpuscular Volume 93.6 fL (80-94); Mean Platelet Vol. 10.8 fl (6.2-12.0); Monocyte# 0.51 X10^3/uL; Monocyte% 10.9 % (0-10); NRBC Flagged by Analyzer 0 % (0-5); Neutrophil # 2.63 X10^3/uL (2.7-7.7); Neutrophil % 56.1 % (47-70); Platelet Count 153 K/mm3 (150-450); RBC Distribution Width CV 15.2 % (11.6-14.6); RBC Distribution Width SD 52.1 fl (35.1-43.9); Red Blood Count 4.55 M/mm3 (4.6-6.2); White Blood Count 4.7 K/mm3 (4.4-11.0)
[2021-01-16 15:53] LABS: Vitamin D,25 Hydroxy 54.7 ng/mL
[2021-01-16 16:13] LABS: ALB/GLOB Ratio 0.8 RATIO (0.9-2.4); AST(SGOT) 37 U/L (15-37); Alanine Aminotransfer ALT/SGPT 51 U/L (16-61); Albumin, Serum 2.9 g/dL (3.2-5.0); Alkaline Phosphatase 120 U/L (45-117); Anion Gap 7 (5-15); BUN 34 mg/dL (7-18); BUN/Creat Ratio 24.6 RATIO (10-20); Calcium,Total 8.7 mg/dL (8.5-10.1); Chloride 111 mmol/L (98-107); Creatinine, Serum 1.38 mg/dL (0.70-1.30); EST Glomerular Filtration Rate 53 mL/min (>60); Est Glom Filt Rate - Afr Amer 64 mL/min (>60); Globulin 3.7 g/dL (2.2-4.2); Glucose 97 mg/dL (74-106); Potassium 4.4 mmol/L (3.5-5.1); Protein, Total 6.6 g/dL (6.4-8.2); Sodium Level 144 mmol/L (136-145); Thyroid Stim Hormone (TSH) 3.05 uIU/mL (0.358-3.74)
== END ==
PROVIDERS: PCP Family Medicine Geriatric Medicine; Visit Provider Family Medicine Geriatric Medicine
DX: E55.9 Vitamin D deficiency, unspecified (principal); R53.83 Other fatigue
CPT/HCPCS: 36415; 80053; 82306; 84443; 85025

== ENCOUNTER 2021-03-04 13:41 | Outpatient (CLI) | payer MEDICARE, OTHER, SELFPAY ==
--- NOTE | 2021-03-04 14:00 | RAD_ITS ---
STUDY: X-RAY - ABDOMEN/PELVIS REASON FOR EXAM: Male, 75 years old. Fecal impaction. TECHNIQUE: AP supine and upright views of the abdomen and pelvis. COMPARISON: None. FINDINGS: Normal visualized lung bases. Nonspecific bowel gas pattern. Air is seen in the colon as well as in mildly distended small bowel loops. There is no air-fluid levels or evidence of obstruction. There is no demonstrated free abdominal air. The visualized liver, spleen and kidneys are grossly normal in size and morphology. Normal soft tissue structures. There are diffuse degenerative changes of the visualized lumbar spine. RAD/Abd Inc Decub and/or Erect IMPRESSION: Question ileus versus early or incomplete small bowel obstruction. Electronically Signed: Zeus Salomon DO at 23:15 EST ,
== END 2021-03-04 23:59 | disposition short-term general hospital (02) ==
LOC: RAD 13:45
PROVIDERS: PCP Family Medicine Geriatric Medicine; Referring Provider Family Medicine Geriatric Medicine; Visit Provider Family Medicine Geriatric Medicine
DX: K56.41 Fecal impaction (principal)
CPT/HCPCS: 74019

== ENCOUNTER 2021-03-21 12:06 | Outpatient (CLI) | payer MEDICARE, OTHER, SELFPAY ==
[2020-09-09 08:25] VITALS: BMI 37.4
[2021-03-21 13:38] LABS: Albumin, Serum 3.1 g/dL (3.2-5.0); BUN 36 mg/dL (7-18); BUN/Creat Ratio 25.5 RATIO (10-20); Calcium,Total 8.5 mg/dL (8.5-10.1); Chloride 108 mmol/L (98-107); Creatinine, Serum 1.41 mg/dL (0.70-1.30); EST Glomerular Filtration Rate 52 mL/min (>60); Est Glom Filt Rate - Afr Amer 63 mL/min (>60); Glucose 104 mg/dL (74-106); Phosphorus 2.6 mg/dL (2.5-4.9); Sodium Level 142 mmol/L (136-145)
== END 2021-03-21 23:59 | disposition home or self-care (01) ==
PROVIDERS: PCP Family Medicine Geriatric Medicine; Visit Provider Internal Medicine Nephrology
DX: N18.31 Chronic kidney disease, stage 3a (principal)
CPT/HCPCS: 36415; 80069

== ENCOUNTER 2021-04-16 13:14 | Outpatient (CLI) | payer MEDICARE, OTHER, SELFPAY ==
[2021-04-16 13:48] LABS: Absolute Lymphocyte Count 1.43 X10^3/uL (0.83-4.51); Absolute Neutrophil Count 6.2 X10^3/uL (2.0-7.7); Basophil# 0.05 X10^3/uL; Basophil% 0.6 % (0-1); Eosinophil# 0.18 X10^3/uL; Eosinophils% 2.1 % (0-5); Hematocrit 42.8 % (40-54); Hemoglobin 14.1 g/dL (13.0-16.5); Lymphocyte # 1.43 X10^3/ul (0.83-4.51); Lymphocyte % 16.3 % (19-41); Mean Corp Hgb Conc 32.9 g/dL (32-36); Mean Corpuscular Hgb 31.7 pg (27.0-32.0); Mean Corpuscular Volume 96.2 fL (80-94); Mean Platelet Vol. 9.4 fl (6.2-12.0); Monocyte# 0.83 X10^3/uL; Monocyte% 9.5 % (0-10); NRBC Flagged by Analyzer 0 % (0-5); Neutrophil # 6.22 X10^3/uL (2.7-7.7); Neutrophil % 70.8 % (47-70); Platelet Count 186 K/mm3 (150-450); RBC Distribution Width SD 52.3 fl (35.1-43.9); Red Blood Count 4.45 M/mm3 (4.6-6.2); White Blood Count 8.8 K/mm3 (4.4-11.0)
[2021-04-16 14:29] LABS: BNP,B-Type NATRIURETIC PEPTIDE 213.9 pg/mL (0-100)
== END 2021-04-16 23:59 | disposition home or self-care (01) ==
LOC: LAB 13:16
PROVIDERS: PCP Family Medicine Geriatric Medicine; Referring Provider Nurse Practitioner Family; Visit Provider Nurse Practitioner Family
DX: R06.00 Dyspnea, unspecified (principal); I48.91 Unspecified atrial fibrillation; R07.9 Chest pain, unspecified
CPT/HCPCS: 36415; 83880; 85025

== ENCOUNTER 2021-04-29 06:36 | Outpatient (CLI) | payer MEDICARE, OTHER, SELFPAY ==
--- NOTE | 2021-04-29 09:18 | STRESSREP_ITS ---
Stress Test Report Date: 04-29-2021 Procedure: Pharmacologic stress nuclear imaging study Indications: Chest pain; CAD; PCI; PAF; status post synchronized biphasic DC cardioversion; GERD; Brantley's esophagus Consent: Per the patient Procedure: The patient underwent pharmacologic (Regadenoson 0.4mg ) evaluation with a peak heart rate of 84 beats per minute (58%predicted maximal heart rate) and a peak blood pressure of 130/80 mmHg. The baseline ECG demonstrated atrial fibrillation. The peak pharmacologic ECG demonstrated no obvious ECG changes. There were no cardiac dysrhythmias pretest, during pharmacologic infusion, or recovery. There was no complaint of chest discomfort during pharmacologic infusion or recovery. The examination was discontinued secondary to completion of protocol. Impression: 1. Pharmacologic (Regadenoson) evaluation 2. Peak pharmacologic ECG with no obvious ECG changes. 3. There were no cardiac dysrhythmias pretest, during pharmacologic infusion, or recovery. 4. Nuclear images pending Myocardial perfusion imaging study: Technique: The patient was injected with 15.0 millicuries of technetium 99m Cardiolite and subsequently rest SPECT Cardiolite nuclear imaging was obtained in the horizontal long, vertical long, and short axis views. The patient underwent pharmacologic (Regadenoson) evaluation with a peak heart rate of 84 beats per minute (58% percent predicted maximal heart rate) and a peak blood pressure of 130/80 mmHg. The patient was injected with 45.0 millicuries of technetium 99m Cardiolite and subsequently stress SPECT Cardiolite nuclear imaging was obtained in the horizontal long, vertical long, and short axis views. A gated Cardiolite study at peak stress was obtained. Interpretation: Rest and stress SPECT Cardiolite nuclear imaging status post realignment, normalization, and attenuation correction demonstrate preattenuation correction the appearance of relatively normal resting myocardial perfusion/tracer uptake and status post-rest the appearance of diminished myocardial perfusion/tracer uptake in the apical segments. Following attenuation correction there appears to be an area at both rest and stress of diminished tracer uptake in the apical segments which may be somewhat more prominent following stress. There is end systolic thickening and brightening. The gated Cardiolite study demonstrates myocardial thickening and inward wall motion. The reported LVEF is 62%. Impression: 1. Rest and stress SPECT Cardiolite nuclear imaging demonstrate myocardial perfusion changes preattenuation correction and post attenuation correction concerning for an area of potential stress-induced myocardial ischemia in the apical segments although an element of physiologic apical thinning cannot necessarily be excluded. 2. The gated Cardiolite study reports an LVEF of 62%. This note was generated with [employer] software. It may contain incorrect words, spelling, and punctuation that were not noted in checking the note before signing.
== END 2021-04-29 23:59 | disposition home or self-care (01) ==
PROVIDERS: PCP Family Medicine Geriatric Medicine; Referring Provider Nurse Practitioner Family; Visit Provider Nurse Practitioner Family
DX: I25.10 Atherosclerotic heart disease of native coronary artery without angina pectoris (principal); I48.91 Unspecified atrial fibrillation; R07.9 Chest pain, unspecified; I10 Essential (primary) hypertension; E78.5 Hyperlipidemia, unspecified; R06.00 Dyspnea, unspecified; Z95.5 Presence of coronary angioplasty implant and graft
CPT/HCPCS: 78452; 93017; A9500; A4216; J2785

== ENCOUNTER 2021-05-13 12:29 | Outpatient (CLI) | payer MEDICARE, OTHER, SELFPAY ==
--- NOTE | 2021-05-13 12:46 | CT_ITS ---
HISTORY: DISORIENTATION. TECHNIQUE: Multiple axial images were obtained of the brain without intravenous contrast. A radiation dose optimization technique was used for this scan. # of images incl. paperwork: [id number]. COMPARISON: None. FINDINGS: BRAIN PARENCHYMA:Multiple small foci and zones of low attenuation in the cerebral white matter most compatible with chronic small vessel ischemic gliosis. INTRACRANIAL HEMORRHAGE: No acute intracranial hemorrhage. CSF SPACES/MASS EFFECT: Diffuse atrophy with compensatory ventricular enlargement. No midline shift or other significant mass effect. ORBITS: Unremarkable. CALVARIUM: Intact. PARANASAL SINUSES AND MASTOID AIR CELLS: Small maxillary and frontal sinus mucous retention cysts. CT/Brain/Head without Contrast IMPRESSION: No acute intracranial process identified. Chronic small vessel ischemic gliosis. Individualized dose optimization techniques were used for this CT. at 1408 Reported and signed by: Linda Rodriguez MD Electronically Signed: Linda Rodriguez MD at 14:07 EDT ,
[2021-05-13 17:24] LABS: Absolute Lymphocyte Count 1.06 X10^3/uL (0.83-4.51); Absolute Neutrophil Count 4.3 X10^3/uL (2.0-7.7); Basophil# 0.05 X10^3/uL; Basophil% 0.8 % (0-1); Eosinophil# 0.14 X10^3/uL; Eosinophils% 2.3 % (0-5); Hematocrit 41.2 % (40-54); Hemoglobin 13.5 g/dL (13.0-16.5); Lymphocyte # 1.06 X10^3/ul (0.83-4.51); Lymphocyte % 17.3 % (19-41); Mean Corp Hgb Conc 32.8 g/dL (32-36); Mean Corpuscular Hgb 31.3 pg (27.0-32.0); Mean Corpuscular Volume 95.4 fL (80-94); Mean Platelet Vol. 10.1 fl (6.2-12.0); Monocyte# 0.56 X10^3/uL; Monocyte% 9.1 % (0-10); NRBC Flagged by Analyzer 0 % (0-5); Neutrophil # 4.26 X10^3/uL (2.7-7.7); Neutrophil % 69.4 % (47-70); Platelet Count 169 K/mm3 (150-450); RBC Distribution Width CV 15.4 % (11.6-14.6); RBC Distribution Width SD 53.8 fl (35.1-43.9); Red Blood Count 4.32 M/mm3 (4.6-6.2); White Blood Count 6.1 K/mm3 (4.4-11.0)
[2021-05-13 17:38] LABS: ALB/GLOB Ratio 0.9 RATIO (0.9-2.4); AST(SGOT) 55 U/L (15-37); Alanine Aminotransfer ALT/SGPT 61 U/L (16-61); Albumin, Serum 2.9 g/dL (3.2-5.0); Alkaline Phosphatase 73 U/L (45-117); Anion Gap 5 (5-15); BUN 40 mg/dL (7-18); BUN/Creat Ratio 24.5 RATIO (10-20); Calcium,Total 8.6 mg/dL (8.5-10.1); Chloride 106 mmol/L (98-107); Creatinine, Serum 1.63 mg/dL (0.70-1.30); EST Glomerular Filtration Rate 44 mL/min (>60); Est Glom Filt Rate - Afr Amer 53 mL/min (>60); Globulin 3.4 g/dL (2.2-4.2); Glucose 102 mg/dL (74-106); Potassium 4.4 mmol/L (3.5-5.1); Protein, Total 6.3 g/dL (6.4-8.2); Sodium Level 139 mmol/L (136-145); Thyroid Stim Hormone (TSH) 4.76 uIU/mL (0.358-3.74)
== END 2021-05-13 23:59 | disposition home or self-care (01) ==
PROVIDERS: Nurse Practitioner Family; PCP Family Medicine Geriatric Medicine; Referring Provider Family Medicine Geriatric Medicine; Visit Provider Family Medicine Geriatric Medicine
DX: R94.39 Abnormal result of other cardiovascular function study (principal); R07.9 Chest pain, unspecified; I10 Essential (primary) hypertension; E78.5 Hyperlipidemia, unspecified; R41.0 Disorientation, unspecified; R53.83 Other fatigue; N39.0 Urinary tract infection, site not specified; Z95.5 Presence of coronary angioplasty implant and graft
CPT/HCPCS: 36415; 70450; 80053; 84443; 85025; 85610; 87086

== ENCOUNTER 2021-05-20 15:03 | Observation (INO) | payer MEDICARE, OTHER, SELFPAY ==
[2021-05-19 10:24] VITALS: BMI 37.7
--- NOTE | 2021-05-20 07:06 | HP.PCM_ITS ---
History and Physical Date of Admission: 05/20/21 [facility] [address] [place] [address] [phone] OFFICE VISITDate of Service: 04/16/21 MR#:[id number]:[id number]: ERICKA SHELDONRep #:[id number]:[id number] Provider: ANT Rdz RoofAge/Sex: 75/M [facility] HPI History of Present Illness Details: This is a 75-year-old gentleman that presents here today for a cardiovascular follow up. He has a history of coronary artery disease with stenting to his LAD in 2007, paroxysmal atrial fibrillation this was noted during septic shock in 2016, hypertension, hyperlipidemia, obstructive sleep apnea, stage III kidney disease, and Brantley's esophagus. Patient was in the office in June 2020 and was noted to be in atrial fibrillation. At that time he was noted to not be taking his Eliquis routinely. He then returned to the office in July and was noted to be in atrial fibrillation persistently. He underwent an echocardiogram which did demonstrate severe left atrial enlargement and mild right atrial enlargement. Mild to moderate MR and TR. Patient did undergo a cardioversion in September 2020. Unfortunately he did not maintain sinus rhythm and was started on amiodarone. He then underwent a cardioversion in November 2020. He was in the ER on 01/09/21 for chest pain. Troponins were negative. Bp was high. He was noted to be in Afib with RVR, he was cardioverted while in the ER. He was to continue metoprolol, Eliquis and amiodarone. He was seen by Dr. Lopez, Kay[facility] Maker, in February 2021 and was noted to be in sinus rhythm. He was recommended continue amiodarone therapy continue to monitor. Patient's contacted our office stating that patient acknowledged chest discomfort. It was recommended to proceed to the ER for evaluation. He declined and presents today for further evaluation. Patient acknowledges over the last 3 weeks noting sharp and dull chest discomfort. This is most noted midsternal and left chest with activity. This lasted approximately 5 to 10 minutes. This is relieved with rest. He does acknowledge since last office visit an increase in fatigue and shortness of breath with activity. He continues to have bilateral lower extreme edema, that he feels is unchanged from previous. He does acknowledge dark stool. Intake Vital Signs 04/16/21 10:47 04/16/21 11:19 Height 5 ft 10 in Weight: 263 lb BMI 37.7 BP 88/56 L 87/54 L Blood Pressure Location Lt brachial Lt brachial Position Sitting Sitting Respiration 18 Pulse 76 74 Pulse Source Auscultation Monitor Comment Automated cuff from home. Intake Visit Reasons: BRENDA CASTRO Cattyman Required: No Accompanied by: Is patient in pain?: Yes (Chest pain walking in from the car, now resolving) Pain scale (1-10): 4 Allergies No Known Allergies Allergy (Verified 04/16/21 10:54) Medications acetaminophen 500 mg tablet 500 mg PO Q6H PRN 11/07/18 [History Confirmed 04/16/21] apixaban 5 mg tablet 5 mg PO BID 11/07/18 [History Confirmed 04/16/21] atorvastatin 40 mg tablet 40 mg PO QHS 11/07/18 [History Confirmed 04/16/21] ozklixzv-msj-skwqw acid 300 mcg-lycopene 600 mcg-lutein 300 mcg tablet 1 tab PO DAILY 11/07/18 [History Confirmed 04/16/21] pantoprazole 40 mg tablet,delayed release 40 mg PO BID 11/07/18 [History Confirmed 04/16/21] paroxetine HCl 20 mg tablet 20 mg PO DAILY 11/07/18 [History Confirmed 04/16/21] cyanocobalamin (vitamin B-12) 1,000 mcg tablet 1,000 mcg PO BID tab 07/18/19 [History Confirmed 04/16/21] divalproex 250 mg tablet,delayed release 250 mg PO BID 07/18/19 [History Confirmed 04/16/21] metoprolol succinate 200 mg tablet,extended release 24 hr 200 mg PO DAILY tab 07/18/19 [History Confirmed 04/16/21] trospium 20 mg tablet 20 mg PO BID 07/18/19 [History Confirmed 04/16/21] furosemide 20 mg tablet 20 mg PO DAILY PRN 07/26/20 [History Confirmed 04/16/21] amiodarone 200 mg tablet 200 mg PO DAILY #90 tab 11/28/20 [Rx Confirmed 04/16/21] clotrimazole-betamethasone 1 %-0.05 % topical cream 1 gm TOPICAL DAILY 11/28/20 [History Confirmed 04/16/21] nitroglycerin 0.4 mg sublingual tablet 0.4 mg SUBLINGUAL Q5-15M PRN #25 tab 01/09/21 [Rx Confirmed 04/16/21] valsartan 320 mg-hydrochlorothiazide 12.5 mg tablet 1 tab PO DAILY #90 tab 02/14/21 [Rx Confirmed 04/16/21] amlodipine 5 mg tablet 5 mg PO DAILY 03/10/21 [History Confirmed 04/16/21] nasal dilators #10 ea 03/10/21 [History Confirmed 04/16/21] Ejection fraction %: 65 to 70 PFSH Medical History Atherosclerosis of coronary artery of cachil dehe heart without angina pectoris Atrial fibrillation Brantley's esophagus with esophagitis Chronic depression Chronic kidney disease, stage 3 Depression Essential hypertension GERD (gastroesophageal reflux disease) History of septic shock (04/02/16) Hyperlipidemia Iron deficiency anemia Obstructive sleep apnea Sleep apnea Surgical History History of total left knee replacement History of total right knee replacement Stented coronary artery (04/14/07) Family History Father Cancer Lung Mother Heart disease Brother Heart disease CVA (cerebral vascular accident) Brother Heart disease Brother Heart disease Social History household members: spouse housing: apartment pets and animals: No Smoking Status: Never smoker alcohol intake: never substance use type: does not use caffeine: Yes Type: carbonated beverages Number of servings: 1 ROS Const Const: Positive for fatigue (Worsening since last visit) and weakness (Worsening since last visit); Negative for headache(s), frequent falls, difficulty sleeping or excessive sweating Eyes Eyes: Negative for loss of peripheral vision, transient loss of vision, blurry vision, double vision or tunnel vision ENT ENT: Positive for balance problems; Negative for headache(s), dizziness or Nosebleed/epistaxis Cardio Chest Pain: Yes Frequency: daily Character: sharp and dull (ache) Onset: other (Mostly with activity or exerton) Location: mid sternal and left chest Duration: minutes (5-10 minutes or less) Relieving: rest and other (Has not tried nitroglycerin) Palpitations: Yes (Is awakened at night with rapid palpitations) feels like its: fast Edema: Bilateral (Unchanged from previous) Muscle aches with walking: None Resp Respiratory: Positive for SOB with activity; Negative for SOB at rest, SOB orthopnea\SOB lying down, Cough or paroxysmal nocturnal dyspnea GI GI: Positive for other (hemorrhoid bleeding, dark stool); Negative nausea, vomiting, heartburn or black,tarry stools : Negative for hematuria Musc Musc: Positive for muscle weakness, joint pain (right arm and shoulder) and balance problems; Negative for muscle aches/ myalgia Skin Skin: Negative non-healing lesions, rash or unusual bruising Neuro Neuro: Positive for weakness (Worsening since last visit); Negative for dizziness, lightheadedness, near syncope, syncope, frequent falls, headache(s), blurry vision, double vision or lack of coordination Olman Hematologic/Lymphatic: Negative for easy bleeding or easy bruising Endo Endo: Positive for fatigue (Worsening since last visit); Negative for excessive sweating or increased thirst/drinking Psych Psych: Negative for anxiety or depression Allergy Allergy/Immunology: Negative for hives and Negative for rash Cardiology Exam Const Appearance: cooperative, healthy appearing, comfortable and no acute distress Nutritional Appearance: well nourished and obese Orientation: alert, awake and oriented x3 Head Head: normal to inspection Ears: hearing grossly normal bilaterally Nose: external nose normal Face and Sinus: face symmetric Mouth: oral mucosae normal Eyes General: appearance normal, both eyes and all related structures Eyelids: eyelids normal EOM: EOM intact bilaterally Neck Neck: normal visual inspection and no JVD Carotids: normal carotid upstroke Chest Chest inspection: normal inspection of the chest, symmetric chest movement and normal respiratory effort; Negative cough Auscultation: Bilateral: Clear to Auscultation Cardio Rate: regular rate Rhythm: irregular rhythm Heart sounds: S1 normal and S2 normal; Negative rub, gallop or murmur GI GI: normal to inspection and obese Neuro General: patient alert, patient awake, patient oriented x3 and CN's II-XI intact bilaterally Skin Skin: no rashes or lesions noted Extremities Pulses: Normal: Right Posterior Tibial Pulse, Left Posterior Tibial Pulse, Right Radial Pulse and Left Radial Pulse Lower Extremity Edema: +1: Left and +2: Right Psych Psychological: normal affect Supplemental Info Supplemental Information Echocardiogram 08/09/2020: Interpretation Summary Left ventricular systolic function is normal. The estimated ejection fraction is 65 %. The left atrium is severely enlarged. The right atrium is mildly enlarged. Mild papillary muscle dysfunction of the mitral valve. Mild-Moderate (1-2+) mitral valve insufficiency. Mild to moderate (1-2+) tricuspid valve insufficiency. Trivial eccentric aortic valve insufficiency. Trivial pulmonic valve insufficiency. Mildly dilated aortic root. Right ventricular systolic pressure estimated to be 40 mmHg. Unable to assess diastolic dysfunction. Echocardiogram 2019: Mild concentric left ventricular hypertrophy. The estimated ejection fraction is 65 %. Stage 2 diastolic dysfunction. Mildly dilated right ventricle. The left atrium is severely enlarged. Trivial mitral valve insufficiency. Trivial tricuspid valve insufficiency. Right ventricular systolic pressure estimated to be 40 mmHg. Mild pulmonary hypertension. The study was technically difficult. There is no comparison study available. Contrast injection was performed. Stress echo 2019: The estimated ejection fraction is 65 %. Normal, adequate, treadmill echocardiogram. Negative for ischemia by EKG and ec hocardiographic criteria. No anginal symptoms noted. Rare PAC noted. Appropriate blood pressure response to exercise. Average exercise capacity for age. Test terminated due to fatigue, leg discomfort and dyspnea. Final LVEF is 75%. No complications. Labs: LDL Cholesterol 56 mg/dL (0-130) HDL Cholesterol 43 mg/dL (40-) Triglycerides 63 mg/dL (-199) VLDL Cholesterol 13 mg/dL (5-40) Diagnostics: Electrocardiogram Echocardiogram Stress Echocardiogram Chest X-Ray Venous Doppler Study Pulmonary: No Data to Display Assessment and Plan Assessment and Plan (1) Atrial fibrillation: Status: Chronic Comment: onset 03/29/2016 when pt hospitalized for sepsis with Group A strep, Cellulitis RLE; DCCV 09/10/2020, 12/03/2020, 01/09/2021 in ER; Orders: Orders: 12 Lead EKG performed by BMS Today CBC W/Diff, Automated Today Nuclear Stress Test - Chemical Today BNP,B-Type NATRIURETIC PEPTIDE Today Plan - Ericka Arias CLIENT PORTFOLIO MANAGER, CLIENT PORTFOLIO MANAGER-C: Patient was noted to be in sinus rhythm during EP evaluation February 2021. He states shortly after such visit he returned into atrial fibrillation. His EKG today shows atrial fibrillation/flutter at a rate of 79 bpm. On account of other symptoms, he was asked to continue with amiodarone therapy. He does have appointment with benefits consulting analyst to discuss further in approximately 1-2 months. Depending on such conversation, amiodarone may be discontinued. He will continue metoprolol succinate for rate control. He will continue Eliquis for CVA protection. (2) Atherosclerosis of coronary artery of cachil dehe heart without angina pectoris: Status: Chronic Orders: Orders: CBC W/Diff, Automated Today Nuclear Stress Test - Chemical Today Elisa - Ericka Arias CLIENT PORTFOLIO MANAGER, CLIENT PORTFOLIO MANAGER-C: Patient does acknowledge chest discomfort, shortness of breath with activity, and fatigue. There are features of his symptoms that appear cardiac and noncardiac related. He was asked undergo a stress test to assess further. His EKG today does not show any acute ST or T wave changes, but there is nonspecific ST depression. On account of his symptoms and history of coronary artery disease with stenting, he was asked to undergo a stress test. Based on results, further recommendation will be made. This may also assist with future EP conversation. (3) Essential hypertension: Status: Chronic Orders: Orders: Nuclear Stress Test - Chemical Today Elisa Arias NP, CLIENT PORTFOLIO MANAGER-C: His blood pressure is on the lower side today. He was asked to hold amlodipine therapy. Based on blood pressure, further medication adjustment will be made. (4) Hyperlipidemia: Status: Chronic Orders: Orders: Nuclear Stress Test - Chemical Today Elisa Arias NP, CLIENT PORTFOLIO MANAGER-C: He will continue atorvastatin 40 mg p.o. nightly. (5) Stented coronary artery: Status: Chronic Comment: 3.5 X 16 LIZ to proximal LAD stenosis of 99%-->0% per Dr. Griselda Abreu, [facility] main 04/14/2007 Orders: Orders: Nuclear Stress Test - Chemical Today Elisa Arias NP, CLIENT PORTFOLIO MANAGER-C: He will continue current medical therapy with metoprolol succinate, valsartan?hydrochlorothiazide, and atorvastatin. (6) MARTINEZ (dyspnea on exertion): Status: Acute Orders: Orders: Nuclear Stress Test - Chemical Today BNP,B-Type NATRIURETIC PEPTIDE Today Elisa Arias NP, CLIENT PORTFOLIO MANAGER-C: The exact etiology of his shortness of breath is unclear but he was asked to go laboratory evaluation to assess hemoglobin and fluid volume overload. He was asked to undergo a stress test to also assess further. Based on results, further recommendation will be made. (7) Chest pain: Status: Acute Orders: Orders: 12 Lead EKG performed by BMS Today CBC W/Diff, Automated Today Nuclear Stress Test - Chemical Today BNP,B-Type NATRIURETIC PEPTIDE Today Plan - Ericka Arias CLIENT PORTFOLIO MANAGER, CLIENT PORTFOLIO MANAGER-C: The exact etiology of such is unclear. He does have features that appear cardiac in features that appear noncardiac related. He will proceed with stress test. Based on results, further recommendation be made. Plan Details Other Medications: On Hold: amlodipine Hold Comment: low blood 04/16/21 5 mg PO DAILY Additional Comments: Thank you for allowing us to participate in the patients plan of care, if you have any questions please do not hesitate to call. This note was generated using a voice recognition system and there may be incorrect words, spelling or punctuation that were not noted when reviewing the office note prior to saving. Portions of this documentation were copied and pasted from previous office visit notes to provide a cohesive continuity of the history. The note has been reviewed, edited, and updated, as necessary. Follow Up: 4-6 weeks (CLIENT PORTFOLIO MANAGER/PA) Keep as is (PFM) Coding Level of Care Code Off vis,est,level 4 Diagnoses Atrial fibrillation I48.91 Atherosclerosis of coronary artery of cachil dehe heart without angina pectoris I25.10 Essential hypertension I10 Hyperlipidemia E78.5 Stented coronary artery Z95.5 MARTINEZ (dyspnea on exertion) R06.00 Chest pain R07.9 Coding Level of Care Code Off vis,est,level 4 Diagnoses Atrial fibrillation I48.91 Atherosclerosis of coronary artery of c[place]il dehe heart without angina pectoris I25.10 Essential hypertension I10 Hyperlipidemia E78.5 Stented coronary artery Z95.5 MARTINEZ (dyspnea on exertion) R06.00 Chest pain R07.9 04/16/21 1220<Electronically signed by Ericka Arias NP CLIENT PORTFOLIO MANAGER-C>Date Ericka Arias NP CLIENT PORTFOLIO MANAGER-C Cosigner Signature:Date (if applicable) CC: Dr. Wilbert Pradhan MD ~ Assessment & Plan Addt'l Comments Addendum: The patient subsequently underwent stress myocardial perfusion study on 04-29-2021. The results are noted below. Stress Test Report Date: 04-29-2021 Procedure: Pharmacologic stress nuclear imaging study Indications: Chest pain; CAD; PCI; PAF; status post synchronized biphasic DC cardioversion; GERD; Brantley's esophagus Consent: Per the patient Procedure: The patient underwent pharmacologic (Regadenoson 0.4mg ) evaluation with a peak heart rate of 84 beats per minute (58%predicted maximal heart rate) and a peak blood pressure of 130/80 mmHg. The baseline ECG demonstrated atrial fibrillation. The peak pharmacologic ECG demonstrated no obvious ECG changes. There were no cardiac dysrhythmias pretest, during pharmacologic infusion, or recovery. There was no complaint of chest discomfort during pharmacologic infusion or recovery. The examination was discontinued secondary to completion of protocol. Impression: 1. Pharmacologic (Regadenoson) evaluation 2. Peak pharmacologic ECG with no obvious ECG changes. 3. There were no cardiac dysrhythmias pretest, during pharmacologic infusion, or recovery. 4. Nuclear images pending Myocardial perfusion imaging study: Technique: The patient was injected with 15.0 millicuries of technetium 99m Cardiolite and subsequently rest SPECT Cardiolite nuclear imaging was obtained in the horizontal long, vertical long, and short axis views. The patient underwent pharmacologic (Regadenoson) evaluation with a peak heart rate of 84 beats per minute (58% percent predicted maximal heart rate) and a peak blood pressure of 130/80 mmHg. The patient was injected with 45.0 millicuries of technetium 99m Cardiolite and subsequently stress SPECT Cardiolite nuclear imaging was obtained in the horizontal long, vertical long, and short axis views. A gated Cardiolite study at peak stress was obtained. Interpretation: Rest and stress SPECT Cardiolite nuclear imaging status post realignment, normalization, and attenuation correction demonstrate preattenuation correction the appearance of relatively normal resting myocardial perfusion/tracer uptake and status post-rest the appearance of diminished myocardial perfusion/tracer uptake in the apical segments. Following attenuation correction there appears to be an area at both rest and stress of diminished tracer uptake in the apical segments which may be somewhat more prominent following stress. There is end systolic thickening and brightening. The gated Cardiolite study demonstrates myocardial thickening and inward wall motion. The reported LVEF is 62%. Impression: 1. Rest and stress SPECT Cardiolite nuclear imaging demonstrate myocardial perfusion changes preattenuation correction and post attenuation correction concerning for an area of potential stress-induced myocardial ischemia in the apical segments although an element of physiologic apical thinning cannot necessarily be excluded. 2. The gated Cardiolite study reports an LVEF of 62%. The patient's case was discussed and reviewed with the patient. Based upon the patient's previous clinical diagnosis, ongoing clinical concerns, and results of his stress myocardial perfusion study it was recommended the patient be considered for further evaluation for the possibility of CAD with cardiac catheterization. The procedure and risk were discussed with the patient. He was agreeable to this approach. This note was generated using a voice recognition system and there may be incorrect words, spelling or punctuation that were not noted when reviewing the office note prior to saving.
--- NOTE | 2021-05-20 11:52 | CL.D_ITS ---
Patient Name: ERICKA SHELDON Study Date: 05/20/2021 Performing: Shola Norton MD Ht: 70.07 inches 178 cm : 1945 Wt: 262.35 lbs 119 kg Age: 75 Gender: male BSA: 2.34 PROCEDURE(S) PERFORMED [id number]-([id number])C/COR CLINICAL PROFILE AND INDICATIONS Indications: Suspected CAD Heart Failure: None Stress/Imaging Date: 04/29/2021tress Test with SPECT MPI: Positive Intermediate Risk Angina Classification Anginal Classification w/in 2 Weeks: CCS III CAD Presentations: Other: worsening angina CONCLUSIONS Elim Ira Multivessel CAD Comment: RCA engagement: decreased arterial wave form and pressure damping Right to Left collateral flow RECOMMENDATIONS Risk factor modification Medical therapy Surgery consult for coronary revascularization Comment: The patients case was discussed with and the patient was accepted in transfer by Dr. Helio del valle of [facility] Surgery for consideration for CABG and Maze procedure (based upon the patients hi story of atrial fibrillation). DESCRIPTION OF PROCEDURE The patient arrived to the procedure lab. The risks and benefits of the procedure as well as a full d escription of our services here and current unavailability of surgical backup were fully explained to the patient and/or their significant other prior to the catheterization. The Timeout was completed, verifying the correct patient and procedure. The patient's procedural site was prepped and draped in the usual fashion. Local anesthetic was given subcutaneously to right radial region with Lidocaine 2% . Using a modified Seldinger technique, arterial access was obtained via the right radial artery, a 6 Fr sheath was inserted. Left Coronary Artery selective angiography was performed in multiple views u sing a 5 Fr. AL 2 catheter. Right Coronary Artery selective angiography was then performed in multipl e views using a 5 Fr. JR 4 catheter.The arterial sheath was pulled and a TR Band was applied for hemo stasis (flushed) 10cc air CORONARY ANGIOGRAPHY DOMINANCE: Right Dominant LEFT MAIN: Mild luminal irregularities LEFT ANTERIOR DESCENDING ARTERY: PROX LAD: Previously placed stent is patent, 99 % Stenosis MID LAD: to distal area: hazy: 50 % Stenosis DIAGONAL 1: Ostial - small to moderate caliber vessel: subtotally occluded and filling late and faint ly CIRCUMFLEX ARTERY: MID CIRC: hazy: 50 % Stenosis RAMUS: proximal: 50 % Stenosis, small side branch vessel: proximal: 75 % stenosis RIGHT CORONARY ARTERY: OSTIAL RCA: 75 % Stenosis MID RCA: 25 - 50 % Stenosis RT PDA: Proximal - 50 % Stenosis COLLATERAL FLOW: Collateral flow from Right to Left COMPLICATIONS No Complications PROCEDURE MEDICATIONS Versed 1 mg IV Fentanyl 50 mcg IV Heparin given IA 05/20/2021 10:36:28 Verapamil 2.5mg, Ntg 100mcgs, 3000 units of Heparin given IA 05/20/2021 10:36:28 IV Bolus: .9 NaCl 500 ml total 05/20/2021 11:01:42 IV Fluids: .9 NaCl IV started @ 100 ml/hr 05/20/2021 08:28:21 SUMMARY OF HEMODYNAMIC DATA Time AIR REST ECG 08:16:30 Signed By Shola Norton MD On 05/20/2021 11:51:38 AM Shola Norton MD
--- NOTE | 2021-05-20 12:33 | ECHOCS_ITS ---
Reason For Study: CHEST PAIN Procedure This was a 2D Doppler, Color Flow transthoracic echocardiogram. The study was technically difficult. Due to body habitus. Contrast injection was performed. Exam performed portable in patient room. Left Ventricle Normal LV size. Sigmoid septum. Mild segmental systolic dysfunction (see wall motion). The estimated ejection fraction is 50 %. Unable to assess diastolic dysfunction. Mid-Anterior : Hypokinetic. Mid- inferoseptal : Hypokinetic. Mid-anteroseptal : Hypokinetic. [place] : Hypokinetic. Right Ventricle Normal RV size. Normal systolic function. Atria The left atrium is severely enlarged. The right atrium is mildly enlarged. No doppler evidence for ASD. Mitral Valve There is no mitral annular calcification. Normal mitral valve. Moderate (2+) mitral valve insufficiency. Tricuspid Valve Normal tricuspid valve. Moderate (2+) tricuspid valve insufficiency. Right ventricular systolic pressure estimated to be 43 mmHg. Aortic Valve Trisinus/trileaflet aortic valve. Mild diffuse aortic valve thickening. Mild focal aortic valve calcification. Pulmonic Valve The pulmonic valve is not well visualized. Trivial pulmonic valve insufficiency. Great Vessels Borderline enlarged/mildly dilated aortic root. Pericardium/Pleural No pericardial effusion. Medication Diluted definity 3.0ml given slow IV push to enhance endocardial definition. MMode/2D Measurements & Calculations LVIDd: 5.1 cm IVSd: 1.1 cm Ao root diam: 3.9 cm LVIDs: 4.1 cm LVPWd: 1.2 cm RVDd: 3.9 cm FS: 20.6 % LAV(MOD-bp): 116.1 ml LVAd ap4: 36.9 cm2 LVAd ap2: 31.5 cm2 LAV(MOD-bp) Indexed: 49.5 ml/m2 LVLd ap4: 8.3 cm LVLd ap2: 9.1 cm LAV(MOD-sp2): 123.5 ml EDV(MOD-sp4): 130.8 ml EDV(MOD-sp2): 90.8 ml LAV(MOD-sp4): 110.5 ml EDV(sp4-el): 140.0 ml EDV(sp2-el): 92.4 ml LVAs ap4: 26.4 cm2 LVAs ap2: 21.6 cm2 LVLs ap4: 8.1 cm LVLs ap2: 7.4 cm ESV(MOD-sp4): 70.9 ml ESV(MOD-sp2): 51.7 ml ESV(sp4-el): 73.1 ml ESV(sp2-el): 53.6 ml EF(MOD-sp4): 45.8 % EF(MOD-sp2): 43.1 % EF(sp4-el): 47.8 % SV(MOD-sp4): 59.9 ml SV(MOD-sp2): 39.1 ml SV(sp4-el): 66.9 ml LA A4 area: 30.3 cm2 LA dimension(2D): 5.3 cm RA A4 area: 19.2 cm2 Doppler Measurements & Calculations MV E max hasmukh: 92.7 cm/sec Ao V2 max: 91.2 cm/sec LV V1 max: 67.2 cm/sec Ao max P.3 mmHg LV V1 max P.8 mmHg Ao V2 mean: 69.7 cm/sec LV V1 mean P.1 mmHg Ao mean P.0 mmHg LV V1 mean: 51.8 cm/sec Ao V2 VTI: 20.0 cm LV V1 VTI: 14.6 cm PA V2 max: 43.8 cm/sec TR max hasmukh: 316.1 cm/sec TR max P.0 mmHg ECHO/Echo Complete W/ Contrast Interpretation Summary The study was technically difficult. Contrast injection was performed. Mild segmental systolic dysfunction (see wall motion). The estimated ejection fraction is 50 %. The left atrium is severely enlarged. The right atrium is mildly enlarged. Moderate (2+) mitral valve insufficiency. Moderate (2+) tricuspid valve insufficiency. Mild diffuse aortic valve thickening. Mild focal aortic valve calcification. Trivial pulmonic valve insufficiency. Borderline enlarged/mildly dilated aortic root. Right ventricular systolic pressure estimated to be 43 mmHg. Unable to assess diastolic dysfunction. Ordering Physician: Shola Norton Referring Physician: Wilbert Pradhan Chi Performed By: Ara Malcolm, YONATAN, RVT
[2021-05-20 15:15] VITALS: BP 124/78; PULSE 61; RESP 18; TEMP 36.4; O2SAT 95
--- NOTE | 2021-05-20 15:20 | PN.CARD_ITS ---
Subjective Subjective The patient appears to be resting comfortably at this time with no acute complaints. Objective Data Vital Signs: Weight: 263 lb Body Mass Index (BMI) 37.7 Cardiology Labs/Tests Rhythm: Atrial fibrillation ECHO: 08-09-2020 Interpretation Summary Left ventricular systolic function is normal. The estimated ejection fraction is 65 %. The left atrium is severely enlarged. The right atrium is mildly enlarged. Mild papillary muscle dysfunction of the mitral valve. Mild-Moderate (1-2+) mitral valve insufficiency. Mild to moderate (1-2+) tricuspid valve insufficiency. Trivial eccentric aortic valve insufficiency. Trivial pulmonic valve insufficiency. Mildly dilated aortic root. Right ventricular systolic pressure estimated to be 40 mmHg. Unable to assess diastolic dysfunction. Stress Test: 04-29-2021 Stress Test Report Date: 04-29-2021 Procedure: Pharmacologic stress nuclear imaging study Indications: Chest pain; CAD; PCI; PAF; status post synchronized biphasic DC cardioversion; GERD; Brantley's esophagus Consent: Per the patient Procedure: The patient underwent pharmacologic (Regadenoson 0.4mg ) evaluation with a peak heart rate of 84 beats per minute (58%predicted maximal heart rate) and a peak blood pressure of 130/80 mmHg. The baseline ECG demonstrated atrial fibrillation. The peak pharmacologic ECG demonstrated no obvious ECG changes. There were no cardiac dysrhythmias pretest, during pharmacologic infusion, or recovery. There was no complaint of chest discomfort during pharmacologic infusion or recovery. The examination was discontinued secondary to completion of protocol. Impression: 1. Pharmacologic (Regadenoson) evaluation 2. Peak pharmacologic ECG with no obvious ECG changes. 3. There were no cardiac dysrhythmias pretest, during pharmacologic infusion, or recovery. 4. Nuclear images pending Myocardial perfusion imaging study: Technique: The patient was injected with 15.0 millicuries of technetium 99m Cardiolite and subsequently rest SPECT Cardiolite nuclear imaging was obtained in the horizontal long, vertical long, and short axis views. The patient underwent pharmacologic (Regadenoson) evaluation with a peak heart rate of 84 beats per minute (58% percent predicted maximal heart rate) and a peak blood pressure of 130/80 mmHg. The patient was injected with 45.0 millicuries of technetium 99m Cardiolite and subsequently stress SPECT Cardiolite nuclear imaging was obtained in the horizontal long, vertical long, and short axis views. A gated Cardiolite study at peak stress was obtained. Interpretation: Rest and stress SPECT Cardiolite nuclear imaging status post realignment, normalization, and attenuation correction demonstrate preattenuation correction the appearance of relatively normal resting myocardial perfusion/tracer uptake and status post-rest the appearance of diminished myocardial perfusion/tracer uptake in the apical segments. Following attenuation correction there appears to be an area at both rest and stress of diminished tracer uptake in the apical segments which may be somewhat more prominent following stress. There is end sy stolic thickening and brightening. The gated Cardiolite study demonstrates myocardial thickening and inward wall motion. The reported LVEF is 62%. Impression: 1. Rest and stress SPECT Cardiolite nuclear imaging demonstrate myocardial perfusion changes preattenuation correction and post attenuation correction concerning for an area of potential stress-induced myocardial ischemia in the apical segments although an element of physiologic apical thinning cannot necessarily be excluded. 2. The gated Cardiolite study reports an LVEF of 62%. Cardiac Cath: 05-20-2021 CONCLUSIONS [place] Multivessel CAD Comment: RCA engagement: decreased arterial wave form and pressure damping Right to Left collateral flow RECOMMENDATIONS Risk factor modification Medical therapy Surgery consult for coronary revascularization Comment: The patients case was discussed with and the patient was accepted in transfer by Dr. Helio Desai of [facility] for consideration for CABG and Maze procedure (based upon the patients history of atrial fibrillation). DESCRIPTION OF PROCEDURE The patient arrived to the procedure lab. The risks and benefits of the procedure as well as a full description of our services here and current unavailability of surgical backup were fully explained to the patient and/or their significant other prior to the catheterization. The Timeout was completed, verifying the correct patient and procedure. The patient's procedural site was prepped and draped in the usual fashion. Local anesthetic was given subcutaneously to right radial region with Lidocaine 2%. Using a modified Seldinger technique, arterial access was obtained via the right radial artery, a 6Fr sheath was inserted. Left Coronary Artery selective angiography was performed in multiple views using a 5 Fr. AL 2 catheter. Right Coronary Artery selective angiography was then performed in multiple views using a 5 Fr. JR 4 catheter.The arterial sheath was pulled and a TR Band was applied for hemostasis (flushed) 10cc air CORONARY ANGIOGRAPHY DOMINANCE: Right Dominant LEFT MAIN: Mild luminal irregularities LEFT ANTERIOR DESCENDING ARTERY: PROX LAD: Previously placed stent is patent, 99 % Stenosis MID LAD: to distal area: hazy: 50 % Stenosis DIAGONAL 1: Ostial - small to moderate caliber vessel: subtotally occluded and filling late and faintly CIRCUMFLEX ARTERY: MID CIRC: hazy: 50 % Stenosis RAMUS: proximal: 50 % Stenosis, small side branch vessel: proximal: 75 % stenosis RIGHT CORONARY ARTERY: OSTIAL RCA: 75 % Stenosis MID RCA: 25 - 50 % Stenosis RT PDA: Proximal - 50 % Stenosis COLLATERAL FLOW: Collateral flow from Right to Left Physical Exam Const alert, oriented x3 and no apparent distress Orientation / Consciousness: awake HEENT normocephalic, head/scalp atraumatic and hearing grossly normal bilaterally Eyes PERRL, EOMs intact bilaterally and conjunctivae normal Neck full ROM, supple and no JVD Resp clear to auscultation bilaterally Cardio Rhythm: abnormal rhythm irregularly irregular Heart Sounds: S1 normal and S2 normal GI normal to inspection, nondistended, normoactive bowel sounds Extremity Peripheral Pulses: Yes radial pulses present right (No bruits: No hematoma) 2+ Skin no rashes or lesions noted Psych mental status grossly normal Assessment & Plan Assessment/Plan (1) CAD (coronary artery disease): PLAN: The patient presented for further evaluation of his underlying cardiovascular status/symptoms and an abnormal stress nuclear imaging study. He underwent diagnostic cardiac catheterization. This demonstrated angiographically significant appearing multivessel CAD especially involving the LAD and RCA systems. He is going to be monitored. He will continue medical management. He has been recommended for further evaluation for CT surgery. (2) Stented coronary artery: PLAN: The patient has a history of LAD PCI. Based upon his cardiac catheterization the LAD PCI site was patent, however, just distal to his PCI site he had angiographically significant appearing LAD disease. He will continue medical therapy. He has been recommended for further evaluation for CT surgery. (3) Atrial fibrillation: PLAN: The patient does have a history of underlying atrial fibrillation. He has been previously referred to Dr. Lopez at [facility] for further EP consultation/recommendations. (4) Hyperlipidemia: PLAN: The patient will continue risk factor modification medical therapy as deemed appropriate. (5) Essential hypertension: PLAN: The patient's blood pressure will be followed and he will continue medical management. (6) Chronic kidney disease, stage 3: PLAN: The patient does have underlying chronic renal insufficiency. His renal function will be followed and his medications and volume status adjusted accordingly. Addt'l Comments At the present time the patient will continue to be monitored. He will continue medical adjustment as deemed appropriate. His case has been discussed with Dr. Desai at [facility] surgery. He agreed to except the patient in transfer for further evaluation and care and consideration for CABG and intraoperative Maze procedure (based upon the patient's history of atrial fibrillation). The patient's case has been discussed and reviewed with the patient and his family members present. This note was generated using a voice recognition system and there may be incorrect words, spelling or punctuation that were not noted when reviewing the office note prior to saving. Procedure Criteria Type of Procedure Procedure Type: Elective Elective Risks - COVID COVID Risk Discussion: The surgeon/proceduralist and patient have discussed in detail the risk of exposure to and/or potential harm posed by the COVID-19 virus with having a surgery/procedure at this time versus the risk of delaying the surgery/procedure. It is not possible to know either the risk of delaying the surgery or procedure or chance of getting an infection with perfect accuracy, but a joint decision was made between the patient and the surgeon/proceduralist to proceed at this time with the scheduled surgery/procedure as indicated on the consent form.
[2021-05-20] MEDS: 0.9% Normal Saline 1,000 ML 50 ML IV (15:31)
[2021-05-20 15:48] VITALS: PULSE 61
[2021-05-20] MEDS: DiphenhydrAMINE 25 MG Capsule 50 MG PO (16:31)
[2021-05-20 19:09] VITALS: PULSE 70
[2021-05-20 19:31] VITALS: BP 123/86; PULSE 76; RESP 18; TEMP 37; O2SAT 96
== END 2021-05-20 22:21 | disposition short-term general hospital (02) ==
LOC: CLSP 15:19 → PCU 15:19
PROVIDERS: Admitting Provider Internal Medicine Cardiovascular Disease; PCP Family Medicine Geriatric Medicine; Visit Provider Internal Medicine Cardiovascular Disease
DX: I25.119 Atherosclerotic heart disease of native coronary artery with unspecified angina pectoris (principal); I48.0 Paroxysmal atrial fibrillation; N18.30 Chronic kidney disease, stage 3 unspecified; I12.9 Hypertensive chronic kidney disease with stage 1 through stage 4 chronic kidney disease, or unspecified chronic kidney disease; K21.9 Gastro-esophageal reflux disease without esophagitis; E78.5 Hyperlipidemia, unspecified; K22.70 Barrett's esophagus without dysplasia; I08.3 Combined rheumatic disorders of mitral, aortic and tricuspid valves; Z79.899 Other long term (current) drug therapy; Z79.02 Long term (current) use of antithrombotics/antiplatelets; Z79.82 Long term (current) use of aspirin; G47.33 Obstructive sleep apnea (adult) (pediatric); Z79.01 Long term (current) use of anticoagulants; Z95.5 Presence of coronary angioplasty implant and graft; R07.89 Other chest pain; R53.1 Weakness; R06.02 Shortness of breath; R60.0 Localized edema
CPT/HCPCS: 87426; 93306; 93454; 96365; 96366; 99152; 99153; J7030; J7040; Q9957; Q9967; A4216; C1769; C1894; C8929

== ENCOUNTER 2021-06-02 19:40 | Inpatient (IN) | payer MEDICARE, OTHER, SELFPAY ==
[2021-06-02 19:58] VITALS: BP 137/78; PULSE 89; RESP 20; TEMP 36; O2SAT 92; BMI 36.2
[2021-06-02 20:30] VITALS: O2SAT 92
--- NOTE | 2021-06-02 20:57 | HP.PCM_ITS ---
[facility] - [facility] Date of Admission: 06/02/21 HPI Narrative ERICKA SHELDON, is a 75 Male who presents with followin05/20/2021 Echo mild segmental systolic dysfunction. EF 50%. Right ventricular systolic pressure 43mm HG. 05/20/2021 Heart cath showed multivessel disease. 05/20/2021 Transfer to [facility] for CABG/MAZE procedure. 05/27/2021 Underwent CABG x 3, left atrial appendage, MAZE procedure. 05/27/2021 Extubated. 05/29/2021 Diuresis for volume overload. 05/31/2021 Eliquis resumed. 06/01/2021 Transfer to medical floor. 06/02/2021 Admit to TCU with debility, here for rehabilitation, strengthening, prior to discharge home with . [facility] Medical History Atherosclerosis of coronary artery of [place] heart without angina pectoris Atrial fibrillation Brantley's esophagus with esophagitis CAD (coronary artery disease) Chronic depression Chronic kidney disease, stage 3 Depression Essential hypertension GERD (gastroesophageal reflux disease) History of left heart catheterization (LHC) (~05/20/21) History of septic shock (04/02/16) Hyperlipidemia Iron deficiency anemia Obstructive sleep apnea Sleep apnea Home Medications acetaminophen 500 mg tablet 1,000 mg PO 4X/DAY 11/07/18 [History Last Taken Unkn own] apixaban 5 mg tablet 5 mg PO BID 11/07/18 [History Last Taken 06/02/21] atorvastatin 40 mg tablet 40 mg PO QHS 11/07/18 [History Last Taken Unknown] pantoprazole 40 mg tablet,delayed release 40 mg PO DAILY 11/07/18 [History Last Taken 09/10/20] paroxetine HCl 20 mg tablet 20 mg PO DAILY 11/07/18 [History Last Taken Unknown] cyanocobalamin (vitamin B-12) 1,000 mcg tablet 1,000 mcg PO BID tab 07/18/19 [History Last Taken Unknown] divalproex 250 mg tablet,delayed release 250 mg PO DAILY 07/18/19 [History Last Taken Unknown] trospium 20 mg tablet 20 mg PO BID 07/18/19 [History Last Taken 12/03/20] furosemide 20 mg tablet 20 mg PO DAILY PRN 07/26/20 [History Last Taken Unknown] albuterol sulfate [Proventil] 2.5 mg INHALATION Q2H PRN PRN 06/02/21 [History Last Taken Unknown] amiodarone 200 mg PO BID 06/02/21 [History Last Taken Unknown] aspirin 162 mg PO DAILY 06/02/21 [History Last Taken Unknown] bacitracin 1 applic TOPICAL TID 06/02/21 [History Last Taken Unknown] bisacodyl 10 mg MD DAILY PRN 06/02/21 [History Last Taken Unknown] carboxymethylcellulose sodium [Refresh] 1 drp EACH EYE BID 06/02/21 [History Last Taken Unknown] cholecalciferol (vitamin D3) 50 mcg PO DAILY 06/02/21 [History Last Taken Unknown] doxepin 25 mg PO QHS 06/02/21 [History Last Taken Unknown] lidocaine 1 patch TOPICAL DAILY PRN 06/02/21 [History Last Taken Unknown] magnesium oxide 400 mg PO DAILY 06/02/21 [History Last Taken Unknown] metoprolol tartrate 25 mg PO Q8H 06/02/21 [History Last Taken Unknown] polyethylene glycol 3350 [Miralax] 17 g PO DAILY 06/02/21 [History Last Taken Unknown] prednisolone acetate 1 drp EACH EYE TID 06/02/21 [History Last Taken Unknown] sennosides-docusate sodium [Senna-S] 1 tab-cap PO BID 06/02/21 [History Last Taken Unknown] tramadol 100 mg PO Q6H PRN PRN 06/02/21 [History Last Taken Unknown] Allergy/AdvReac Type Severity Reaction Status Date / Time No Known Allergies Allergy Verified 04/16/21 10:54 Family History Father Cancer Lung Mother Heart disease Brother Heart disease CVA (cerebral vascular accident) Brother Heart disease Brother Heart disease Surgical History History of coronary artery bypass graft x 3 (~05/27/21) History of total left knee replacement History of total right knee replacement Stented coronary artery (04/14/07) Social History household members: spouse housing: apartment pets and animals: No Smoking Status: Never smoker alcohol intake: never substance use type: does not use caffeine: Yes Type: carbonated beverages Number of servings: 1 ROS Constitutional Constitutional: Denies chills, fever(s) or weight gain ENT HEENT: Denies headache(s), nasal congestion or nasal discharge Cardiovascular Cardiovascular: Denies chest pain or palpitations Respiratory/Chest Respiratory/Chest: Denies cough, excessive phlegm production or shortness of breath with exertion Gastrointestinal Gastrointestinal: Denies abdominal pain, nausea or vomiting Genitourinary Genitourinary: Denies dysuria Musculoskeletal Musculoskeletal: Denies joint pain or joint swelling Integumentary Integumentary: Denies rash or wounds Neurologic Neurologic: Denies focal weakness, numbness or tingling Psychiatric Psychiatric: Denies anxiety, auditory hallucinations, depression, homicidal ideation or suicidal ideation Physical Exam Const alert General Appearance: cooperative HEENT normocephalic Eyes PERRL and EOMs intact bilaterally Neck supple, no JVD and no carotid bruits Chest Chest Narrative: Sternal incision clean, dry, intact. Resp normal respiratory effort, normal air movement and clear to auscultation bilaterally Cardio regular rate and regular rhythm GI normal to inspection, nondistended, normoactive bowel sounds, non-tender and non-distended Extremity normal capillary refill General Extremity: Negative for edema Skin no rashes or lesions noted General Skin Exam: no breakdown Psych affect normal Appearance: appropriate Results Lab / Micro Data Result Diagrams: 06/03/21 05:31 06/03/21 05:31 Assessment & Plan Assessment/Plan (1) Debility: (2) History of coronary artery bypass graft x 3: (3) CAD (coronary artery disease): (4) Atrial fibrillation: (5) Brantley esophagus: (6) Depression: (7) Overactive bladder: (8) Hyperlipidemia: (9) Mood disorder: (10) Chronic kidney disease, stage 3a: PLAN: 75 year old male with below past medical history hospitalized for multivessel coronary artery disease, underwent CABG x 3, left atrial appendage, MAZE procedure 05/27/2021, admitted to TCU with debility, here for rehabilitation, strengthening, prior to discharge home with . * Debility - PT/OT. * Pain - Tylenol 1000mg 4x/day, Tramadol 50-100mg q6h prn, Lidoderm patch 1 patch td daily prn. * Bowel - Miralax 17gm daily, senna/colace 1 tablet bid, Dulcolax 10mg pr daily prn. * Adult immunization - Administer pneumonia vaccine, flu vaccine, covid19 vaccine. * DVT prophylaxis - Not necessary, on Eliquis. * Shortness of breath - Albuterol 2.5mg q2h prn. * Atrial fibrillation - Metoprolol 25mg q8h, Amiodarone taper, Eliquis 5mg bid. * Coronary artery disease status post CABG x 3, Metoprolol 25mg q8h, Aspirin 162mg daily. * Hyperlipidemia - Atorvastatin 40mg qhs. * Incision - Bacitracin topical tid. * Mood disorder - Depakote 250mg daily, stable chronic half-way use, GDR not recommended. * Insomnia - Doxepin 25mg qhs. * Edema - Lasix 20mg daily. * Hypomagnesemia - Magnesium 128mg daily. * GERD - Pantoprazole 40mg daily. 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 * Dry eye - Artificial tears 1 gtt ou bid. * Eye inflammation - Prednisolone 1gtt ou tid. * Overactive bladder - Tolterodine 2mg daily.
[2021-06-02] MEDS: BACITRACIN 15 GM Tube 1 APPLIC TOPICAL (22:14)
[2021-06-02] MEDS: prednisoLONE eye drops (5 mL) 1 DROP OPTH.BTL 1 DRP EACH EYE (22:14)
[2021-06-02 22:15] VITALS: BP 138/69; PULSE 89
[2021-06-02] MEDS: Metoprolol Tartrate 25 MG Tablet PO (22:15)
[2021-06-02] MEDS: Atorvastatin Calcium 40 MG Tablet PO (22:17)
[2021-06-02] MEDS: Acetaminophen 500 MG Tablet 1000 MG PO (22:17)
[2021-06-02] MEDS: Doxepin Hcl 25 MG Capsule PO (22:18)
[2021-06-03] MEDS: BACITRACIN 15 GM Tube 1 APPLIC TOPICAL ×3 (05:35→21:22)
[2021-06-03] MEDS: prednisoLONE eye drops (5 mL) 1 DROP OPTH.BTL 1 DRP EACH EYE ×3 (05:35→21:22)
[2021-06-03] MEDS: Glycerin/Hypromellose/PEG400 15 ml Bottle 1 DRP EACH EYE ×2 (05:35→17:00)
[2021-06-03] MEDS: Acetaminophen 500 MG Tablet 1000 MG PO ×4 (05:37→21:20)
[2021-06-03] MEDS: Polyethylene Glycol 3350 17 GM PACKET PO (05:37)
[2021-06-03] MEDS: 0.9% Saline Lock 10 ML Syringe IV ×2 (05:38→21:30)
[2021-06-03] MEDS: Magnesium Chloride 64 MG Delay Rel.Tablet 128 MG PO (05:39)
[2021-06-03 05:40] VITALS: BP 104/70; PULSE 86
[2021-06-03] MEDS: Tolterodine Tartrate 2 MG CAP.SA PO (05:40)
[2021-06-03] MEDS: Paroxetine 20 MG Tablet PO (05:40)
[2021-06-03] MEDS: Pantoprazole Sodium 40 MG Tablet PO (05:40)
[2021-06-03] MEDS: APIXABAN 5 MG TABLET PO ×2 (05:40→16:59)
[2021-06-03] MEDS: Senna/Docusate Sodium 1 Tablet PO ×2 (05:40→17:01)
[2021-06-03] MEDS: Metoprolol Tartrate 25 MG Tablet PO ×3 (05:40→21:20)
[2021-06-03 05:42] LABS: Basophil# 0.04 X10^3/uL; Basophil% 0.6 % (0-1); Eosinophil# 0.27 X10^3/uL; Eosinophils% 4.3 % (0-5); Hematocrit 30.8 % (40-54); Hemoglobin 9.9 g/dL (13.0-16.5); Lymphocyte % 17.7 % (19-41); Mean Corp Hgb Conc 32.1 g/dL (32-36); Mean Corpuscular Hgb 31.1 pg (27.0-32.0); Mean Corpuscular Volume 96.9 fL (80-94); Mean Platelet Vol. 9.5 fl (6.2-12.0); Monocyte# 0.71 X10^3/uL; Monocyte% 11.4 % (0-10); NRBC Flagged by Analyzer 0 % (0-5); Neutrophil # 3.99 X10^3/uL (2.7-7.7); Neutrophil % 64.1 % (47-70); Platelet Count 194 K/mm3 (150-450); RBC Distribution Width CV 15.6 % (11.6-14.6); RBC Distribution Width SD 56.2 fl (35.1-43.9); Red Blood Count 3.18 M/mm3 (4.6-6.2); White Blood Count 6.2 K/mm3 (4.4-11.0)
[2021-06-03 06:29] LABS: Anion Gap 4 (5-15); BUN 28 mg/dL (7-18); BUN/Creat Ratio 22.8 RATIO (10-20); Calcium,Total 8.4 mg/dL (8.5-10.1); Chloride 106 mmol/L (98-107); Creatinine, Serum 1.23 mg/dL (0.70-1.30); EST Glomerular Filtration Rate 61 mL/min (>60); Est Glom Filt Rate - Afr Amer 73 mL/min (>60); Estimated Creatinine Clearance 54.42 ml/min; Glucose 101 mg/dL (74-106); Potassium 4.2 mmol/L (3.5-5.1); Sodium Level 137 mmol/L (136-145)
[2021-06-03] MEDS: Aspirin 81 MG TAB.CHEW 162 MG PO (08:26)
[2021-06-03] MEDS: Amiodarone 200 MG Tablet PO ×2 (08:26→17:01)
[2021-06-03] MEDS: Divalproex Sodium 250 MG Tablet PO (08:26)
[2021-06-03] MEDS: Tuberculin,Purif.prot.deriv. 50 TU/ML Vial 0.1 ML ID (09:50)
[2021-06-03 14:32] VITALS: BP 129/67; PULSE 105; RESP 17; TEMP 36.1; O2SAT 94
[2021-06-03 14:52] VITALS: BP 129/67; PULSE 105
--- NOTE | 2021-06-03 15:53 | CASEMGMT ---
Addendum entered by Itzel Wagner 06/03/21 15:56: Addition: Pt wishes to have as primary contact, then dtr and son. Chart reflects. Original Note: Social Work Met with patient for initial assessment. Introduced self and role. Son present in room and pt granted permission for SW to complete assessment. Explained Medicare benefit. Encouraged to contact secondary insurance to ensure copay coverage. Discussed code status and MOLST form. Pt wishes to be DNR-CCA, no intubation. Nursing notified. DNR form signed by patient and purple bracelet in place. MOLST communicated to , placed in chart. The goal is for pt to return home with . SW to continue to follow. Itzel Wagner, [employer] INSPECTOR
--- NOTE | 2021-06-03 16:23 | PCM.PN.RX ---
Progress Note - Pharmacy Subjective: TCU ADMISSION Objective: Allergies No Known Allergies Allergy (Verified 04/16/21 10:54) Current Medications Generic Name Dose Route Start Last Admin Trade Name Antonyq PRN Reason Stop Dose Admin Acetaminophen 1,000 mg 06/02/21 22:00 06/03/21 11:47 Acetaminophen 500 Mg Tablet PO 1,000 mg 4X/DAY SUKH Administration Albuterol Sulfate 2.5 mg 06/02/21 20:31 Albuterol 2.5 Mg/3 Ml Vial.Neb. INHALATION Q2H PRN wheezing/sob Amiodarone HCl 200 mg 06/03/21 08:00 06/03/21 08:26 Amiodarone 200 Mg Tablet PO 06/08/21 08:[facility] Amiodarone HCl 200 mg 06/09/21 08:00 Amiodarone 200 Mg Tablet PO 09/07/21 [facility] Apixaban 5 mg 06/03/21 06:00 06/03/21 05:40 Apixaban 5 Mg Tablet PO 5 mg BID [facility] Administration Aspirin 162 mg 06/03/21 08:00 06/03/21 08:26 Aspirin 81 Mg Tab.Chew PO [facility] Administration Atorvastatin Calcium 40 mg 06/02/21 22:00 06/02/21 22:17 Atorvastatin Calcium 40 Mg Tablet PO 40 mg QHS [facility] Administration Bacitracin 1 applic 06/02/21 22:00 06/03/21 14:52 Bacitracin 15 Gm Tube TOPICAL 06/23/21 22:01 1 applic TID [facility] Administration Bisacodyl 10 mg 06/02/21 20:31 Bisacodyl 10 Mg Suppository RC DAILY PRN Constipation Divalproex Sodium 250 mg 06/03/21 08:00 06/03/21 08:26 Divalproex Sodium 250 Mg Tablet PO [facility] Administration Doxepin HCl 25 mg 06/02/21 22:00 06/02/21 22:18 Doxepin Hcl 25 Mg Capsule PO 25 mg QHS [facility] Administration Furosemide 20 mg 06/03/21 08:15 Furosemide 20 Mg Tablet PO DAILY PRN PRN Weight Gain >2Lbs per day Lidocaine 1 patch 06/02/21 20:55 Lidocaine 5% Patch TOPICAL DAILY PRN PRN Pain Magnesium Chloride 128 mg 06/03/21 06:00 06/03/21 05:39 Magnesium Chloride 64 Mg Delay Rel.Tablet PO 128 mg DAILY SUKH Administration Metoprolol Tartrate 25 mg 06/02/21 22:00 06/03/21 14:52 Metoprolol Tartrate 25 Mg Tablet PO 25 mg Q8 SUKH Administration Pantoprazole Sodium 40 mg 06/03/21 06:00 06/03/21 05:40 Pantoprazole Sodium 40 Mg Tablet PO 40 mg DAILY SUKH Administration Paroxetine HCl 20 mg 06/03/21 06:00 06/03/21 05:40 Paroxetine 20 Mg Tablet PO 20 mg DAILY SUKH Administration Polyethylene Glycol 17 gm 06/03/21 06:00 06/03/21 05:37 Polyethylene Glycol 3350 17 Gm Packet PO 17 gm DAILY SUKH Administration Prednisolone Acetate 1 drp 06/02/21 22:00 06/03/21 14:52 Prednisolone Eye Drops (5 Ml) 1 Drop Opth.Btl EACH EYE 1 drp TID SUKH Administration Senna/Docusate Sodium 1 tablet 06/03/21 06:00 06/03/21 05:40 Senna/Docusate Sodium 1 Tablet PO 1 tablet BID SUKH Administration Sodium Chloride 10 - 40 ml 06/02/21 22:51 06/03/21 05:38 0.9% Saline Lock 10 Ml Syringe IV 10 ml UD PRN Administration SALINE FLUSH Tolterodine Tartrate 2 mg 06/03/21 06:00 06/03/21 05:40 Tolterodine Tartrate 2 Mg Cap.Sa PO 2 mg DAILY SUKH Administration Tramadol HCl 50 - 100 mg 06/02/21 20:31 Tramadol 50 Mg Tablet PO Q6H PRN PRN Pain 1-10 Tuberculin PPD 0.1 ml 06/10/21 10:00 Tuberculin,Purif.Prot.Deriv. 50 Tu/Ml Vial ID 06/10/21 10:01 X1 ONE Problem List (Last Reviewed 06/02/21 @ 22:34 by Qiana Lion) Chronic kidney disease, stage 3a (Chronic) Mood disorder (Acute) Hyperlipidemia (Acute) Overactive bladder (Acute) Depression (Acute) Brantley esophagus (Acute) Atrial fibrillation (Acute) Debility (Acute) History of coronary artery bypass graft x 3 (Acute ~05/27/21) CAD (coronary artery disease) (Acute) Vital Signs Temp Pulse Resp BP Pulse Ox 97.0 F L 105 H 17 129/67 H 94 06/03/21 14:32 06/03/21 14:52 06/03/21 14:32 06/03/21 14:52 06/03/21 14:32 Oxygen Delivery Method Room Air Weight: 124.284 kg Body Mass Index (BMI) 36.2 Sodium 137 mmol/L (136-145) 06/03/21 05:31 Potassium 4.2 mmol/L (3.5-5.1) 06/03/21 05:31 Chloride 106 mmol/L (98-107) 06/03/21 05:31 Carbon Dioxide 27.0 mmol/L (21.0-32.0) 06/03/21 05:31 Anion Gap 4 (5-15) L 06/03/21 05:31 BUN 28 mg/dL (7-18) H 06/03/21 05:31 Creatinine 1.23 mg/dL (0.70-1.30) 06/03/21 05:31 Est GFR (MDRD) Af Amer 73 mL/min (>60) 06/03/21 05:31 Est GFR (MDRD) Non-Af 61 mL/min (>60) 06/03/21 05:31 BUN/Creatinine Ratio 22.8 RATIO (10-20) H 06/03/21 05:31 Glucose 101 mg/dL (74-106) 06/03/21 05:31 Assessment/Plan: 1. Pain: acetaminophen 1000mg PO 4x/day, tramadol 50-100mg PO Q6H PRN pain 1-10 and lidocaine 5% patch 1patch topically daily PRN pain. Please continue to monitor for increased pain and PRN usage. 2. Atrial fibrillation/CAD s/p CABG: metoprolol tartrate 25mg PO Q8, amiodarone 200mg PO BIDCM thru 06/08/21 then 200mg PO DAILYCM 06/09/21 thru 09/07/21, apixaban 5mg PO BID and aspirin 162mg PO DAILYCM. Please continue to monitor BP (last 129/67), HR (last 105), sodium (last 137mmol/L), potassium (last 4.2mmol/L), hemoglobin (last 9.9g/dL) and S/S of bleeding. 3. Shortness of breath: albuterol nebulized solution 2.5mg inhalation Q2H PRN wheezing/SOB. Please continue to monitor for SOB, wheezing and PRN usage. *4. Hyperlipidemia: atorvastatin 40mg PO QHS. Please consider ordering a lipid panel (last 11/2019) if clinically indicated. Thanks. Please continue to monitor for muscle pain. 5. Edema: furosemide 20mg PO daily PRN weight gain >2 lbs per day. Please continue to monitor for PRN usage. 6. GERD: pantoprazole 40mg PO daily. Please continue to monitor for S/S of GERD and diarrhea. 7. Overactive bladder: tolterodine 2mg PO daily. Please continue to monitor for delirium/dementia and dry mouth. This medication is on the BEERs list. 8. Eye inflammation/dry eye: prednisolone 1gtt OU TID and artificial tears 1gtt OU BID. Please continue to monitor for dry eye/inflammation. *9. Hypomagnesemia: magnesium chloride 128mg PO daily. Please consider ordering a magnesium level if clinically appropriate. Resident does not have a level in the chart. Thanks. Psychotropic Medications: 1. Mood disorder: divalproex 250mg PO DAILYCM. Please see physician note regarding GDR. Please consider ordering a valproic acid level (last 12/2019) if resident shows S/S of toxicity or worsening of condition. 2. Depression: paroxetine 20mg PO daily. Please see physician note regarding GDR. Please continue to monitor for GI side effects. *3. Insomnia: doxepin 25mg PO QHS. Please consider GDR by 11/2021 if clinically appropriate. Thanks. Please continue to monitor for anticholinergic side effects - this medication is on the BEERs list for anticholinergic side effects, sedation and orthostatic hypotension. Unnecessary Medications: None Bowel Regimen: Miralax 17gm PO daily, senna/docusate 1T PO BID and bisacodyl 10mg RC daily PRN constipation. Please continue to monitor for S/S of constipation and PRN usage. Date of Note:: 06/03/21
[2021-06-03] MEDS: Furosemide 20 MG Tablet PO (17:01)
[2021-06-03 21:20] VITALS: BP 111/63; PULSE 92
[2021-06-03] MEDS: Atorvastatin Calcium 40 MG Tablet PO (21:20)
[2021-06-03] MEDS: Doxepin Hcl 25 MG Capsule PO (21:20)
[2021-06-04] VITALS (7 sets, daily range): BP systolic 102–129; BP diastolic 60–82; PULSE 84–107; RESP 16–18; TEMP 36.1–36.6; O2SAT 96–98
[2021-06-04] MEDS: Glycerin/Hypromellose/PEG400 15 ml Bottle 1 DRP EACH EYE ×2 (05:41→17:18)
[2021-06-04] MEDS: Polyethylene Glycol 3350 17 GM PACKET PO (05:42)
[2021-06-04] MEDS: BACITRACIN 15 GM Tube 1 APPLIC TOPICAL ×3 (06:10→22:05)
[2021-06-04] MEDS: Metoprolol Tartrate 25 MG Tablet PO ×3 (06:11→21:55)
[2021-06-04] MEDS: APIXABAN 5 MG TABLET PO ×2 (06:11→17:18)
[2021-06-04] MEDS: Tolterodine Tartrate 2 MG CAP.SA PO (06:11)
[2021-06-04] MEDS: Senna/Docusate Sodium 1 Tablet PO ×2 (06:12→17:18)
[2021-06-04] MEDS: Acetaminophen 500 MG Tablet 1000 MG PO ×4 (06:12→21:56)
[2021-06-04] MEDS: Paroxetine 20 MG Tablet PO (06:12)
[2021-06-04] MEDS: Pantoprazole Sodium 40 MG Tablet PO (06:12)
[2021-06-04] MEDS: Magnesium Chloride 64 MG Delay Rel.Tablet 128 MG PO (06:12)
[2021-06-04] MEDS: prednisoLONE eye drops (5 mL) 1 DROP OPTH.BTL 1 DRP EACH EYE ×3 (06:14→21:55)
[2021-06-04] MEDS: Aspirin 81 MG TAB.CHEW 162 MG PO (08:33)
[2021-06-04] MEDS: Amiodarone 200 MG Tablet PO ×2 (08:33→17:17)
[2021-06-04] MEDS: Divalproex Sodium 250 MG Tablet PO (08:34)
--- NOTE | 2021-06-04 11:20 | NS ---
Provided first choice/daily specials menu w/ instructions on how to order. Portions sizes are ok for res.
[2021-06-04] MEDS: 0.9% Saline Lock 10 ML Syringe IV (14:06)
--- NOTE | 2021-06-04 15:11 | CHAPLAIN ---
Type of Pastoral Visit _x__ Initial Visit ___ Follow-up Visit ___ On-call Visit ___ General Patient Visit ___ Spiritual Assessment ___ Family Conference ___ Bereavement ___ Rapid Response ___ Code Blue ___ Other (describe below) Pastoral Care Referral From _x__ Patient ___ Family ___ Nurse ___ Physician ___ Foreign Exchange Clerk ___ Die Designer ___ Other (describe below) Sacrament/Intervention _x__ Active listening ___ Anointing ___ Gnosticist ___ Bereavement ___ Communion _x__ Gale exploration ___ _x__ Life review ___ Prayer ___ Reconciliation ___ Sacrament of Sick __x_ Supportive presence ___ Wedding ___ Other (describe below) Pastoral Comments long conversation with patient to get acquainted with his life and needs; pt speaks of his concerns for and of his being her main caregiver; pt gives his gale perspective and how that is important; pt gives some life review and current living situation; pt welcomes future visits with this maintenance operator
[2021-06-04] MEDS: Atorvastatin Calcium 40 MG Tablet PO (21:55)
[2021-06-04] MEDS: Doxepin Hcl 25 MG Capsule PO (21:56)
[2021-06-05] MEDS: 0.9% Saline Lock 10 ML Syringe IV ×2 (05:10→12:45)
[2021-06-05] MEDS: Glycerin/Hypromellose/PEG400 15 ml Bottle 1 DRP EACH EYE ×2 (05:12→17:05)
[2021-06-05] MEDS: BACITRACIN 15 GM Tube 1 APPLIC TOPICAL ×3 (05:12→21:40)
[2021-06-05] MEDS: Polyethylene Glycol 3350 17 GM PACKET PO (05:22)
[2021-06-05] MEDS: Acetaminophen 500 MG Tablet 1000 MG PO ×4 (05:22→21:57)
[2021-06-05 05:23] VITALS: BP 117/82; PULSE 96
[2021-06-05] MEDS: Pantoprazole Sodium 40 MG Tablet PO (05:23)
[2021-06-05] MEDS: Magnesium Chloride 64 MG Delay Rel.Tablet 128 MG PO (05:23)
[2021-06-05] MEDS: Senna/Docusate Sodium 1 Tablet PO (05:23)
[2021-06-05] MEDS: APIXABAN 5 MG TABLET PO ×2 (05:23→17:04)
[2021-06-05] MEDS: Metoprolol Tartrate 25 MG Tablet PO ×3 (05:23→21:58)
[2021-06-05] MEDS: Tolterodine Tartrate 2 MG CAP.SA PO (05:23)
[2021-06-05] MEDS: Furosemide 20 MG Tablet PO (05:23)
[2021-06-05] MEDS: Paroxetine 20 MG Tablet PO (05:24)
[2021-06-05] MEDS: prednisoLONE eye drops (5 mL) 1 DROP OPTH.BTL 1 DRP EACH EYE ×3 (05:24→21:38)
[2021-06-05] MEDS: Amiodarone 200 MG Tablet PO ×2 (08:26→17:03)
[2021-06-05] MEDS: Aspirin 81 MG TAB.CHEW 162 MG PO (08:26)
[2021-06-05] MEDS: Divalproex Sodium 250 MG Tablet PO ×2 (08:26→20:01)
[2021-06-05 13:28] VITALS: PULSE 98
[2021-06-05 15:06] VITALS: BP 115/56; PULSE 102; RESP 16; TEMP 36.2; O2SAT 98
--- NOTE | 2021-06-05 18:47 | PCA ---
DISPATCHER SHIP PILOT offered HS help and patient stated that they had received a shower in the morning and does not want cleaned up at this time. carol care preformed after using restroom.
[2021-06-05 21:58] VITALS: BP 136/84; PULSE 100
[2021-06-05] MEDS: Atorvastatin Calcium 40 MG Tablet PO (21:58)
[2021-06-05] MEDS: Doxepin Hcl 25 MG Capsule PO (21:58)
--- NOTE | 2021-06-05 23:24 | NURSING ---
Changed dressings to chest, LLE post surgery sites. Patient tolerated well. Will continue to monitor.
[2021-06-06] MEDS: Polyethylene Glycol 3350 17 GM PACKET PO (06:22)
[2021-06-06] MEDS: Acetaminophen 500 MG Tablet 1000 MG PO ×4 (06:22→21:58)
[2021-06-06] MEDS: Glycerin/Hypromellose/PEG400 15 ml Bottle 1 DRP EACH EYE ×2 (06:22→17:35)
[2021-06-06] MEDS: Senna/Docusate Sodium 1 Tablet PO ×2 (06:23→17:35)
[2021-06-06] MEDS: Furosemide 40 MG Tablet PO (06:23)
[2021-06-06] MEDS: Magnesium Chloride 64 MG Delay Rel.Tablet 128 MG PO (06:23)
[2021-06-06] MEDS: Pantoprazole Sodium 40 MG Tablet PO (06:23)
[2021-06-06] MEDS: Paroxetine 20 MG Tablet PO (06:24)
[2021-06-06] MEDS: Tolterodine Tartrate 2 MG CAP.SA PO (06:24)
[2021-06-06] MEDS: Divalproex Sodium 250 MG Tablet PO ×2 (06:24→17:35)
[2021-06-06] MEDS: APIXABAN 5 MG TABLET PO ×2 (06:24→17:36)
[2021-06-06 06:27] VITALS: BP 114/78; PULSE 76
[2021-06-06] MEDS: Metoprolol Tartrate 25 MG Tablet PO ×3 (06:27→21:57)
[2021-06-06] MEDS: prednisoLONE eye drops (5 mL) 1 DROP OPTH.BTL 1 DRP EACH EYE ×3 (06:28→21:59)
[2021-06-06] MEDS: BACITRACIN 15 GM Tube 1 APPLIC TOPICAL ×3 (06:39→21:57)
[2021-06-06] MEDS: Aspirin 81 MG TAB.CHEW 162 MG PO (07:51)
[2021-06-06] MEDS: Amiodarone 200 MG Tablet PO ×2 (07:51→17:36)
[2021-06-06 08:36] VITALS: PULSE 74; RESP 16; O2SAT 95
--- NOTE | 2021-06-06 09:04 | CASEMGMT ---
Social Work BIMS and PHQ-9 completed for MDS assessment. Itzel Wagner, MITER SAWYER BOBBIN DUMPER
--- NOTE | 2021-06-06 12:08 | NURSING ---
Completed pain interview for EDGAR 06/09/2021
--- NOTE | 2021-06-06 12:56 | NURSING ---
Bright red blood noted in toilet. Patient states this is normal for him due to his hemerrhoids. RN aware
[2021-06-06 13:16] VITALS: BP 134/75; PULSE 75
[2021-06-06 15:32] VITALS: BP 109/71; PULSE 95; RESP 14; TEMP 36.5; O2SAT 98
[2021-06-06 21:55] VITALS: BP 120/82; PULSE 100
[2021-06-06 21:57] VITALS: PULSE 100
[2021-06-06] MEDS: Atorvastatin Calcium 40 MG Tablet PO (21:57)
[2021-06-06] MEDS: Doxepin Hcl 25 MG Capsule PO (21:58)
[2021-06-07 05:57] VITALS: BP 119/63; PULSE 95
[2021-06-07] MEDS: Divalproex Sodium 250 MG Tablet PO ×2 (05:57→17:51)
[2021-06-07] MEDS: Polyethylene Glycol 3350 17 GM PACKET PO (05:57)
[2021-06-07] MEDS: Metoprolol Tartrate 25 MG Tablet PO ×3 (05:57→21:53)
[2021-06-07] MEDS: Paroxetine 20 MG Tablet PO (05:57)
[2021-06-07] MEDS: Furosemide 40 MG Tablet PO (05:57)
[2021-06-07] MEDS: BACITRACIN 15 GM Tube 1 APPLIC TOPICAL ×3 (05:58→21:55)
[2021-06-07] MEDS: Acetaminophen 500 MG Tablet 1000 MG PO ×4 (05:58→21:54)
[2021-06-07] MEDS: Pantoprazole Sodium 40 MG Tablet PO (05:58)
[2021-06-07] MEDS: Tolterodine Tartrate 2 MG CAP.SA PO (05:58)
[2021-06-07] MEDS: Magnesium Chloride 64 MG Delay Rel.Tablet 128 MG PO (05:58)
[2021-06-07] MEDS: APIXABAN 5 MG TABLET PO ×2 (05:58→17:52)
[2021-06-07] MEDS: Glycerin/Hypromellose/PEG400 15 ml Bottle 1 DRP EACH EYE (05:59)
[2021-06-07] MEDS: Senna/Docusate Sodium 1 Tablet PO ×2 (06:01→17:50)
[2021-06-07] MEDS: prednisoLONE eye drops (5 mL) 1 DROP OPTH.BTL 1 DRP EACH EYE (06:06)
[2021-06-07 06:44] LABS: Anion Gap 3 (5-15); BUN 33 mg/dL (7-18); BUN/Creat Ratio 27.3 RATIO (10-20); Calcium,Total 8.1 mg/dL (8.5-10.1); Chloride 110 mmol/L (98-107); Creatinine, Serum 1.21 mg/dL (0.70-1.30); EST Glomerular Filtration Rate 62 mL/min (>60); Est Glom Filt Rate - Afr Amer 75 mL/min (>60); Estimated Creatinine Clearance 55.32 ml/min; Glucose 100 mg/dL (74-106); Potassium 4.2 mmol/L (3.5-5.1); Sodium Level 141 mmol/L (136-145)
[2021-06-07] MEDS: Amiodarone 200 MG Tablet PO ×2 (08:58→17:50)
[2021-06-07] MEDS: Aspirin 81 MG TAB.CHEW 162 MG PO (08:58)
[2021-06-07 10:38] VITALS: PULSE 102; RESP 16; O2SAT 96
--- NOTE | 2021-06-07 10:49 | NURSING ---
pt reports that his eye drops are not correct on MAR. states prednisolone gtts are to be to Left eye only and art tears to RT eye only. updated MAR per pt home regimen
--- NOTE | 2021-06-07 11:30 | NURSING ---
Dr Pradhan updated on pt having bright red bleeding from external hemorrhoids, pt states this happens at home and he just applies pressure while sitting on toilet. new order for anusol cream BID PRN. pt updated. Instructed pt to limit time he sits on toilet to prevent pressure to rectal area, increase fiber in diet. pt verbalized understanding.
[2021-06-07] MEDS: Hydrocortisone 2.5% Crm 1 APPLIC TOPICAL (12:14)
[2021-06-07 13:35] VITALS: BP 96/62; PULSE 88; RESP 18; TEMP 36.2; O2SAT 97
[2021-06-07 13:39] VITALS: PULSE 88
[2021-06-07] MEDS: prednisoLONE eye drops (5 mL) 1 DROP OPTH.BTL 1 DRP LEFT EYE ×2 (13:39→21:55)
[2021-06-07] MEDS: Bisacodyl 10 MG Suppository RC (14:26)
[2021-06-07] MEDS: Glycerin/Hypromellose/PEG400 15 ml Bottle 1 DRP RIGHT EYE (17:50)
[2021-06-07 17:54] VITALS: BP 127/87; PULSE 86
[2021-06-07 21:53] VITALS: BP 157/70; PULSE 105
[2021-06-07] MEDS: Atorvastatin Calcium 40 MG Tablet PO (21:53)
[2021-06-07] MEDS: Doxepin Hcl 25 MG Capsule PO (21:54)
[2021-06-08] MEDS: Polyethylene Glycol 3350 17 GM PACKET PO (06:05)
[2021-06-08 06:06] VITALS: BP 118/76; PULSE 84
[2021-06-08] MEDS: Metoprolol Tartrate 25 MG Tablet PO ×3 (06:06→22:02)
[2021-06-08] MEDS: BACITRACIN 15 GM Tube 1 APPLIC TOPICAL ×3 (06:07→22:02)
[2021-06-08] MEDS: prednisoLONE eye drops (5 mL) 1 DROP OPTH.BTL 1 DRP LEFT EYE ×3 (06:07→22:06)
[2021-06-08] MEDS: Paroxetine 20 MG Tablet PO (06:07)
[2021-06-08] MEDS: Senna/Docusate Sodium 1 Tablet PO ×2 (06:07→17:51)
[2021-06-08] MEDS: Acetaminophen 500 MG Tablet 1000 MG PO ×3 (06:08→22:03)
[2021-06-08] MEDS: Furosemide 40 MG Tablet PO (06:08)
[2021-06-08] MEDS: APIXABAN 5 MG TABLET PO ×2 (06:09→17:50)
[2021-06-08] MEDS: Pantoprazole Sodium 40 MG Tablet PO (06:09)
[2021-06-08] MEDS: Divalproex Sodium 250 MG Tablet PO ×2 (06:09→17:49)
[2021-06-08] MEDS: Magnesium Chloride 64 MG Delay Rel.Tablet 128 MG PO (06:09)
[2021-06-08] MEDS: Tolterodine Tartrate 2 MG CAP.SA PO (06:09)
[2021-06-08] MEDS: Glycerin/Hypromellose/PEG400 15 ml Bottle 1 DRP RIGHT EYE ×2 (06:10→17:52)
[2021-06-08] MEDS: Aspirin 81 MG TAB.CHEW 162 MG PO (08:38)
[2021-06-08] MEDS: Amiodarone 200 MG Tablet PO (08:38)
[2021-06-08 13:04] VITALS: PULSE 86
[2021-06-08 17:56] VITALS: BP 135/84; PULSE 85; RESP 18; TEMP 36.7; O2SAT 96
[2021-06-08 19:45] VITALS: O2SAT 96
--- NOTE | 2021-06-08 21:06 | NURSING ---
notified of pt increased edema, no increase in urination in spite of increased Lasix dose. New orders for IV Lasix, K+, recheck labs in am. Also notified that Isidra would like to speak with him, states he will call her in am. Pt and notified of new orders.
[2021-06-08] MEDS: 0.9% Saline Lock 10 ML Syringe IV (22:01)
[2021-06-08 22:02] VITALS: BP 130/59; PULSE 100
[2021-06-08] MEDS: Atorvastatin Calcium 40 MG Tablet PO (22:03)
[2021-06-08] MEDS: Doxepin Hcl 25 MG Capsule PO (22:04)
[2021-06-08] MEDS: Furosemide 40 MG/4 ML Vial IV (22:10)
[2021-06-09] MEDS: Polyethylene Glycol 3350 17 GM PACKET PO (05:15)
[2021-06-09] MEDS: Furosemide 40 MG/4 ML Vial IV ×2 (05:15→13:23)
[2021-06-09] MEDS: 0.9% Saline Lock 10 ML Syringe IV (05:15)
[2021-06-09] MEDS: prednisoLONE eye drops (5 mL) 1 DROP OPTH.BTL 1 DRP LEFT EYE ×3 (05:15→21:50)
[2021-06-09] MEDS: APIXABAN 5 MG TABLET PO ×2 (05:15→17:38)
[2021-06-09] MEDS: Paroxetine 20 MG Tablet PO (05:16)
[2021-06-09] MEDS: BACITRACIN 15 GM Tube 1 APPLIC TOPICAL ×3 (05:16→21:53)
[2021-06-09] MEDS: Glycerin/Hypromellose/PEG400 15 ml Bottle 1 DRP RIGHT EYE ×2 (05:16→17:38)
[2021-06-09] MEDS: Tolterodine Tartrate 2 MG CAP.SA PO (05:16)
[2021-06-09 05:17] VITALS: BP 133/84; PULSE 91
[2021-06-09] MEDS: Acetaminophen 500 MG Tablet 1000 MG PO ×3 (05:17→21:51)
[2021-06-09] MEDS: Magnesium Chloride 64 MG Delay Rel.Tablet 128 MG PO (05:17)
[2021-06-09] MEDS: Pantoprazole Sodium 40 MG Tablet PO (05:17)
[2021-06-09] MEDS: Metoprolol Tartrate 25 MG Tablet PO ×3 (05:17→21:52)
[2021-06-09] MEDS: Senna/Docusate Sodium 1 Tablet PO ×2 (05:17→17:38)
[2021-06-09 05:44] LABS: Absolute Lymphocyte Count 0.96 X10^3/uL (0.83-4.51); Absolute Neutrophil Count 5.9 X10^3/uL (2.0-7.7); Basophil# 0.07 X10^3/uL; Basophil% 0.9 % (0-1); Eosinophil# 0.26 X10^3/uL; Eosinophils% 3.2 % (0-5); Hematocrit 30.6 % (40-54); Hemoglobin 9.3 g/dL (13.0-16.5); Lymphocyte # 0.96 X10^3/ul (0.83-4.51); Lymphocyte % 11.9 % (19-41); Mean Corp Hgb Conc 30.4 g/dL (32-36); Mean Corpuscular Hgb 30.8 pg (27.0-32.0); Mean Corpuscular Volume 101.3 fL (80-94); Mean Platelet Vol. 8.8 fl (6.2-12.0); Monocyte# 0.74 X10^3/uL; Monocyte% 9.2 % (0-10); NRBC Flagged by Analyzer 0 % (0-5); Neutrophil # 5.91 X10^3/uL (2.7-7.7); Neutrophil % 73.6 % (47-70); Platelet Count 272 K/mm3 (150-450); RBC Distribution Width CV 16.2 % (11.6-14.6); Red Blood Count 3.02 M/mm3 (4.6-6.2)
[2021-06-09 06:19] LABS: Anion Gap 4 (5-15); BUN 35 mg/dL (7-18); Calcium,Total 8.5 mg/dL (8.5-10.1); Chloride 107 mmol/L (98-107); Creatinine, Serum 1.46 mg/dL (0.70-1.30); EST Glomerular Filtration Rate 50 mL/min (>60); Est Glom Filt Rate - Afr Amer 60 mL/min (>60); Estimated Creatinine Clearance 45.84 ml/min; Glucose 100 mg/dL (74-106); Potassium 4.1 mmol/L (3.5-5.1); Sodium Level 142 mmol/L (136-145)
[2021-06-09] MEDS: Aspirin 81 MG TAB.CHEW 162 MG PO (08:21)
[2021-06-09] MEDS: Potassium Chloride Oral Tablet 20 MEQ PO (08:22)
[2021-06-09] MEDS: Divalproex Sodium 250 MG Tablet PO ×2 (08:22→17:37)
[2021-06-09] MEDS: Amiodarone 200 MG Tablet PO (08:22)
[2021-06-09 13:19] VITALS: BP 94/59; PULSE 104; RESP 20; TEMP 36.5
[2021-06-09 13:32] VITALS: PULSE 97
--- NOTE | 2021-06-09 15:37 | NURSING ---
change coordinator Note:Interview and section F of MDS complete.
[2021-06-09 21:52] VITALS: BP 115/64; PULSE 88
[2021-06-09] MEDS: Atorvastatin Calcium 40 MG Tablet PO (21:52)
[2021-06-09] MEDS: Doxepin Hcl 25 MG Capsule PO (21:52)
--- NOTE | 2021-06-09 22:30 | NURSING ---
notified of pt left lower leg, red, warm to touch from lt inner calf to ankle, new orders for Doppler in am, Keflex and Doxycycline, will continue to monitor.
[2021-06-09] MEDS: Doxycycline 100 MG CAPSULE PO (23:06)
[2021-06-09] MEDS: Cephalexin 500 MG Capsule PO (23:06)
[2021-06-10 05:36] LABS: Absolute Neutrophil Count 4.6 X10^3/uL (2.0-7.7); Basophil# 0.07 X10^3/uL; Basophil% 1.1 % (0-1); Eosinophil# 0.26 X10^3/uL; Hematocrit 28.9 % (40-54); Hemoglobin 8.8 g/dL (13.0-16.5); Lymphocyte % 15.3 % (19-41); Mean Corp Hgb Conc 30.4 g/dL (32-36); Mean Corpuscular Hgb 31.1 pg (27.0-32.0); Mean Corpuscular Volume 102.1 fL (80-94); Mean Platelet Vol. 8.8 fl (6.2-12.0); Monocyte# 0.59 X10^3/uL; NRBC Flagged by Analyzer 0 % (0-5); Neutrophil # 4.56 X10^3/uL (2.7-7.7); Neutrophil % 69.5 % (47-70); Platelet Count 265 K/mm3 (150-450); RBC Distribution Width SD 59.8 fl (35.1-43.9); Red Blood Count 2.83 M/mm3 (4.6-6.2); White Blood Count 6.6 K/mm3 (4.4-11.0)
[2021-06-10] MEDS: Glycerin/Hypromellose/PEG400 15 ml Bottle 1 DRP RIGHT EYE ×2 (05:47→17:47)
[2021-06-10] MEDS: BACITRACIN 15 GM Tube 1 APPLIC TOPICAL ×3 (05:48→21:12)
[2021-06-10] MEDS: prednisoLONE eye drops (5 mL) 1 DROP OPTH.BTL 1 DRP LEFT EYE ×3 (05:48→21:14)
[2021-06-10] MEDS: Polyethylene Glycol 3350 17 GM PACKET PO (05:51)
[2021-06-10] MEDS: Cephalexin 500 MG Capsule PO ×2 (05:51→17:48)
[2021-06-10] MEDS: Doxycycline 100 MG CAPSULE PO ×2 (05:51→17:48)
[2021-06-10] MEDS: Paroxetine 20 MG Tablet PO (05:52)
[2021-06-10] MEDS: Tolterodine Tartrate 2 MG CAP.SA PO (05:52)
[2021-06-10] MEDS: APIXABAN 5 MG TABLET PO ×2 (05:52→17:48)
[2021-06-10] MEDS: Pantoprazole Sodium 40 MG Tablet PO (05:52)
[2021-06-10] MEDS: Acetaminophen 500 MG Tablet 1000 MG PO ×3 (05:52→21:15)
[2021-06-10] MEDS: Senna/Docusate Sodium 1 Tablet PO ×2 (05:52→17:49)
[2021-06-10] MEDS: 0.9% Saline Lock 10 ML Syringe IV ×2 (05:54→21:10)
[2021-06-10] MEDS: Furosemide 40 MG/4 ML Vial IV (05:54)
[2021-06-10 05:57] LABS: Anion Gap 5 (5-15); BUN 37 mg/dL (7-18); BUN/Creat Ratio 22.6 RATIO (10-20); Calcium,Total 8.2 mg/dL (8.5-10.1); Chloride 105 mmol/L (98-107); Creatinine, Serum 1.64 mg/dL (0.70-1.30); EST Glomerular Filtration Rate 44 mL/min (>60); Est Glom Filt Rate - Afr Amer 53 mL/min (>60); Estimated Creatinine Clearance 40.81 ml/min; Glucose 95 mg/dL (74-106); Potassium 4.2 mmol/L (3.5-5.1); Sodium Level 141 mmol/L (136-145)
[2021-06-10 06:01] VITALS: BP 137/75; PULSE 81
[2021-06-10] MEDS: Metoprolol Tartrate 25 MG Tablet PO ×3 (06:01→21:15)
[2021-06-10] MEDS: Magnesium Chloride 64 MG Delay Rel.Tablet 128 MG PO (07:20)
[2021-06-10] MEDS: Amiodarone 200 MG Tablet PO (07:20)
[2021-06-10] MEDS: Divalproex Sodium 250 MG Tablet PO ×2 (07:21→17:47)
[2021-06-10] MEDS: Aspirin 81 MG TAB.CHEW 162 MG PO (07:21)
[2021-06-10] MEDS: Potassium Chloride Oral Tablet 20 MEQ PO (07:21)
[2021-06-10] MEDS: Tuberculin,Purif.prot.deriv. 50 TU/ML Vial 0.1 ML ID (10:23)
[2021-06-10 13:39] VITALS: PULSE 64
[2021-06-10] MEDS: Furosemide 40 MG Tablet PO (13:39)
[2021-06-10 15:46] VITALS: BP 108/69; PULSE 80; RESP 21; TEMP 36.3; O2SAT 98
[2021-06-10 21:15] VITALS: BP 115/67; PULSE 89
[2021-06-10] MEDS: Doxepin Hcl 25 MG Capsule PO (21:15)
[2021-06-10] MEDS: Atorvastatin Calcium 40 MG Tablet PO (21:15)
[2021-06-10 22:02] VITALS: PULSE 61; RESP 16; O2SAT 97
[2021-06-11] MEDS: Glycerin/Hypromellose/PEG400 15 ml Bottle 1 DRP RIGHT EYE ×2 (05:58→17:37)
[2021-06-11] MEDS: prednisoLONE eye drops (5 mL) 1 DROP OPTH.BTL 1 DRP LEFT EYE ×3 (05:58→21:41)
[2021-06-11 05:59] VITALS: BP 111/73; PULSE 87
[2021-06-11] MEDS: Senna/Docusate Sodium 1 Tablet PO ×2 (05:59→17:38)
[2021-06-11] MEDS: Acetaminophen 500 MG Tablet 1000 MG PO ×3 (05:59→21:40)
[2021-06-11] MEDS: Polyethylene Glycol 3350 17 GM PACKET PO (05:59)
[2021-06-11] MEDS: Pantoprazole Sodium 40 MG Tablet PO (05:59)
[2021-06-11] MEDS: Cephalexin 500 MG Capsule PO ×2 (05:59→17:37)
[2021-06-11] MEDS: Metoprolol Tartrate 25 MG Tablet PO ×3 (05:59→21:39)
[2021-06-11] MEDS: Furosemide 40 MG Tablet PO ×2 (05:59→13:35)
[2021-06-11] MEDS: Doxycycline 100 MG CAPSULE PO ×2 (05:59→17:37)
[2021-06-11] MEDS: APIXABAN 5 MG TABLET PO ×2 (06:00→17:37)
[2021-06-11] MEDS: Paroxetine 20 MG Tablet PO (06:00)
[2021-06-11] MEDS: Tolterodine Tartrate 2 MG CAP.SA PO (06:01)
[2021-06-11] MEDS: BACITRACIN 15 GM Tube 1 APPLIC TOPICAL ×3 (06:07→21:45)
[2021-06-11 06:23] LABS: Anion Gap 3 (5-15); BUN 40 mg/dL (7-18); BUN/Creat Ratio 27.4 RATIO (10-20); Calcium,Total 8.4 mg/dL (8.5-10.1); Chloride 108 mmol/L (98-107); Creatinine, Serum 1.46 mg/dL (0.70-1.30); EST Glomerular Filtration Rate 50 mL/min (>60); Est Glom Filt Rate - Afr Amer 60 mL/min (>60); Estimated Creatinine Clearance 45.84 ml/min; Glucose 108 mg/dL (74-106); Sodium Level 141 mmol/L (136-145)
[2021-06-11] MEDS: Divalproex Sodium 250 MG Tablet PO ×2 (07:55→17:37)
[2021-06-11] MEDS: Aspirin 81 MG TAB.CHEW 162 MG PO (07:55)
[2021-06-11] MEDS: Potassium Chloride Oral Tablet 20 MEQ PO (07:56)
[2021-06-11] MEDS: Magnesium Chloride 64 MG Delay Rel.Tablet 128 MG PO (07:56)
[2021-06-11] MEDS: Amiodarone 200 MG Tablet PO (07:56)
[2021-06-11 13:37] VITALS: BP 120/64; PULSE 88
[2021-06-11 13:43] VITALS: BP 120/64; PULSE 88; RESP 16; TEMP 36.4; O2SAT 97
[2021-06-11] MEDS: 0.9% Saline Lock 10 ML Syringe IV (17:39)
[2021-06-11 21:39] VITALS: BP 129/78; PULSE 102
[2021-06-11] MEDS: Atorvastatin Calcium 40 MG Tablet PO (21:39)
[2021-06-11] MEDS: Doxepin Hcl 25 MG Capsule PO (21:40)
[2021-06-12] MEDS: BACITRACIN 15 GM Tube 1 APPLIC TOPICAL ×3 (06:06→21:12)
[2021-06-12] MEDS: Acetaminophen 500 MG Tablet 1000 MG PO ×3 (06:08→21:16)
[2021-06-12] MEDS: Paroxetine 20 MG Tablet PO (06:08)
[2021-06-12] MEDS: Tolterodine Tartrate 2 MG CAP.SA PO (06:08)
[2021-06-12] MEDS: Senna/Docusate Sodium 1 Tablet PO ×2 (06:08→17:15)
[2021-06-12] MEDS: Polyethylene Glycol 3350 17 GM PACKET PO (06:08)
[2021-06-12 06:09] VITALS: PULSE 82
[2021-06-12] MEDS: Metoprolol Tartrate 25 MG Tablet PO ×3 (06:09→21:16)
[2021-06-12] MEDS: Doxycycline 100 MG CAPSULE PO ×2 (06:09→17:15)
[2021-06-12] MEDS: Cephalexin 500 MG Capsule PO ×2 (06:09→17:15)
[2021-06-12] MEDS: Furosemide 40 MG Tablet PO ×2 (06:09→14:01)
[2021-06-12] MEDS: APIXABAN 5 MG TABLET PO ×2 (06:09→17:15)
[2021-06-12] MEDS: Pantoprazole Sodium 40 MG Tablet PO (06:09)
[2021-06-12] MEDS: prednisoLONE eye drops (5 mL) 1 DROP OPTH.BTL 1 DRP LEFT EYE ×3 (06:10→21:17)
[2021-06-12] MEDS: Glycerin/Hypromellose/PEG400 15 ml Bottle 1 DRP RIGHT EYE ×2 (06:10→17:15)
[2021-06-12] MEDS: 0.9% Saline Lock 10 ML Syringe IV ×2 (06:14→14:02)
[2021-06-12] MEDS: Potassium Chloride Oral Tablet 20 MEQ PO (08:49)
[2021-06-12] MEDS: Aspirin 81 MG TAB.CHEW 162 MG PO (08:49)
[2021-06-12] MEDS: Magnesium Chloride 64 MG Delay Rel.Tablet 128 MG PO (08:49)
[2021-06-12] MEDS: Divalproex Sodium 250 MG Tablet PO ×2 (08:50→17:15)
[2021-06-12] MEDS: Amiodarone 200 MG Tablet PO (08:50)
[2021-06-12 08:51] VITALS: BP 95/62; PULSE 96
--- NOTE | 2021-06-12 10:39 | CASEMGMT ---
Social Work IDT met with patient, , dtr and son for care plan meeting. Discussed patient's progress in PT/OT and nursing. ST to eval today. Pt making progress. Explained Medicare benefit. Encouraged to contact secondary insurance to ensure copay coverage. cannot assist at home. Pt needs to return to [place] to return home. Family expressed concern with swelling in legs/ankles/feet not improving. Pt is on 40 mg BID of lasix. Left communication for Dr. Pradahn. requesting [facility] and FWW at [facility] to order at [facility] to continue to follow. Itzel Wagner, PIERO PROCESS SAFETY ENGINEERING TECHNOLOGIST
[2021-06-12 14:01] VITALS: BP 104/61; PULSE 88
[2021-06-12 14:07] VITALS: BP 104/61; PULSE 878; RESP 187; TEMP 36.3; O2SAT 987
[2021-06-12 21:16] VITALS: BP 125/70; PULSE 99
[2021-06-12] MEDS: Doxepin Hcl 25 MG Capsule PO (21:16)
[2021-06-12] MEDS: Atorvastatin Calcium 40 MG Tablet PO (21:16)
[2021-06-12 22:33] VITALS: PULSE 99; RESP 18; O2SAT 95
[2021-06-13] MEDS: Glycerin/Hypromellose/PEG400 15 ml Bottle 1 DRP RIGHT EYE ×2 (04:56→18:23)
[2021-06-13] MEDS: prednisoLONE eye drops (5 mL) 1 DROP OPTH.BTL 1 DRP LEFT EYE ×3 (04:56→22:06)
[2021-06-13 04:59] VITALS: BP 117/79; PULSE 87
[2021-06-13] MEDS: Furosemide 40 MG Tablet PO ×2 (04:59→15:00)
[2021-06-13] MEDS: Paroxetine 20 MG Tablet PO (04:59)
[2021-06-13] MEDS: Metoprolol Tartrate 25 MG Tablet PO (04:59)
[2021-06-13] MEDS: Doxycycline 100 MG CAPSULE PO ×2 (04:59→18:23)
[2021-06-13] MEDS: Polyethylene Glycol 3350 17 GM PACKET PO (04:59)
[2021-06-13] MEDS: Cephalexin 500 MG Capsule PO ×2 (04:59→18:23)
[2021-06-13] MEDS: Pantoprazole Sodium 40 MG Tablet PO (04:59)
[2021-06-13] MEDS: APIXABAN 5 MG TABLET PO ×2 (04:59→18:23)
[2021-06-13] MEDS: Senna/Docusate Sodium 1 Tablet PO ×2 (05:00→18:23)
[2021-06-13] MEDS: Acetaminophen 500 MG Tablet 1000 MG PO ×3 (05:00→22:10)
[2021-06-13] MEDS: 0.9% Saline Lock 10 ML Syringe IV (05:00)
[2021-06-13] MEDS: Tolterodine Tartrate 2 MG CAP.SA PO (05:00)
[2021-06-13 07:55] LABS: Anion Gap 5 (5-15); BUN 38 mg/dL (7-18); BUN/Creat Ratio 25.5 RATIO (10-20); Calcium,Total 8.4 mg/dL (8.5-10.1); Chloride 108 mmol/L (98-107); Creatinine, Serum 1.49 mg/dL (0.70-1.30); EST Glomerular Filtration Rate 49 mL/min (>60); Est Glom Filt Rate - Afr Amer 59 mL/min (>60); Estimated Creatinine Clearance 44.92 ml/min; Glucose 94 mg/dL (74-106); Potassium 4.1 mmol/L (3.5-5.1); Sodium Level 142 mmol/L (136-145)
[2021-06-13] MEDS: Magnesium Chloride 64 MG Delay Rel.Tablet 128 MG PO (08:35)
[2021-06-13] MEDS: BACITRACIN 15 GM Tube 1 APPLIC TOPICAL (08:35)
[2021-06-13] MEDS: Divalproex Sodium 250 MG Tablet PO ×2 (08:36→18:23)
[2021-06-13] MEDS: Aspirin 81 MG TAB.CHEW 162 MG PO (08:36)
[2021-06-13] MEDS: Amiodarone 200 MG Tablet PO (08:36)
[2021-06-13] MEDS: Potassium Chloride Oral Tablet 20 MEQ PO (08:36)
[2021-06-13 11:39] VITALS: PULSE 105; RESP 18; O2SAT 96
--- NOTE | 2021-06-13 13:44 | NURSING ---
virtual appt with cryptographic vulnerability analyst/surgeon, new order to increase lopressor 37.5 TID d/t irreg HR at times. dc bacitracin to incision sites. continue elevating legs and chest vest on during day off at hs
[2021-06-13 15:00] VITALS: PULSE 87
[2021-06-13] MEDS: Metoprolol Tartrate 25 MG Tablet 37.5 MG PO ×2 (15:00→22:11)
[2021-06-13 15:36] VITALS: BP 113/65; PULSE 86; RESP 14; TEMP 36.1
[2021-06-13] MEDS: Hydrocortisone 2.5% Crm 1 APPLIC TOPICAL (16:09)
[2021-06-13 22:11] VITALS: BP 115/64; PULSE 84
[2021-06-13] MEDS: Atorvastatin Calcium 40 MG Tablet PO (22:11)
[2021-06-13] MEDS: Doxepin Hcl 25 MG Capsule PO (22:11)
[2021-06-14] MEDS: Glycerin/Hypromellose/PEG400 15 ml Bottle 1 DRP RIGHT EYE ×2 (05:11→17:26)
[2021-06-14] MEDS: prednisoLONE eye drops (5 mL) 1 DROP OPTH.BTL 1 DRP LEFT EYE ×3 (05:11→21:05)
[2021-06-14] MEDS: Tolterodine Tartrate 2 MG CAP.SA PO (05:14)
[2021-06-14] MEDS: Cephalexin 500 MG Capsule PO ×2 (05:14→17:27)
[2021-06-14] MEDS: Furosemide 40 MG Tablet PO ×2 (05:14→14:29)
[2021-06-14] MEDS: Doxycycline 100 MG CAPSULE PO ×2 (05:14→17:27)
[2021-06-14] MEDS: APIXABAN 5 MG TABLET PO ×2 (05:14→17:27)
[2021-06-14] MEDS: Acetaminophen 500 MG Tablet 1000 MG PO ×3 (05:14→21:10)
[2021-06-14] MEDS: Pantoprazole Sodium 40 MG Tablet PO (05:14)
[2021-06-14] MEDS: Polyethylene Glycol 3350 17 GM PACKET PO (05:14)
[2021-06-14 05:15] VITALS: BP 120/75; PULSE 87
[2021-06-14] MEDS: Senna/Docusate Sodium 1 Tablet PO ×2 (05:15→17:27)
[2021-06-14] MEDS: Paroxetine 20 MG Tablet PO (05:15)
[2021-06-14] MEDS: Metoprolol Tartrate 25 MG Tablet 37.5 MG PO ×3 (05:15→21:10)
[2021-06-14] MEDS: Magnesium Chloride 64 MG Delay Rel.Tablet 128 MG PO (08:36)
[2021-06-14] MEDS: Potassium Chloride Oral Tablet 20 MEQ PO (08:36)
[2021-06-14] MEDS: Aspirin 81 MG TAB.CHEW 162 MG PO (08:37)
[2021-06-14] MEDS: Amiodarone 200 MG Tablet PO (08:37)
[2021-06-14] MEDS: Divalproex Sodium 250 MG Tablet PO ×2 (08:37→17:27)
[2021-06-14 08:52] VITALS: BP 100/67; PULSE 101
[2021-06-14 14:31] VITALS: BP 105/78; PULSE 81
[2021-06-14 16:00] VITALS: RESP 16; TEMP 36.7; O2SAT 96
[2021-06-14 21:10] VITALS: BP 115/81; PULSE 78
[2021-06-14] MEDS: Doxepin Hcl 25 MG Capsule PO (21:10)
[2021-06-14] MEDS: Atorvastatin Calcium 40 MG Tablet PO (21:10)
[2021-06-15] MEDS: Glycerin/Hypromellose/PEG400 15 ml Bottle 1 DRP RIGHT EYE ×2 (05:26→17:27)
[2021-06-15] MEDS: prednisoLONE eye drops (5 mL) 1 DROP OPTH.BTL 1 DRP LEFT EYE ×3 (05:26→21:59)
[2021-06-15 05:27] VITALS: BP 129/84; PULSE 87
[2021-06-15] MEDS: APIXABAN 5 MG TABLET PO ×2 (05:27→17:27)
[2021-06-15] MEDS: Metoprolol Tartrate 25 MG Tablet 37.5 MG PO ×3 (05:27→22:00)
[2021-06-15] MEDS: Doxycycline 100 MG CAPSULE PO ×2 (05:27→17:27)
[2021-06-15] MEDS: Paroxetine 20 MG Tablet PO (05:27)
[2021-06-15] MEDS: Senna/Docusate Sodium 1 Tablet PO ×2 (05:28→17:28)
[2021-06-15] MEDS: Furosemide 40 MG Tablet PO ×2 (05:28→13:22)
[2021-06-15] MEDS: Polyethylene Glycol 3350 17 GM PACKET PO (05:28)
[2021-06-15] MEDS: Acetaminophen 500 MG Tablet 1000 MG PO ×3 (05:28→22:00)
[2021-06-15] MEDS: Cephalexin 500 MG Capsule PO ×2 (05:28→17:27)
[2021-06-15] MEDS: Pantoprazole Sodium 40 MG Tablet PO (05:28)
[2021-06-15] MEDS: Tolterodine Tartrate 2 MG CAP.SA PO (05:53)
[2021-06-15] MEDS: Aspirin 81 MG TAB.CHEW 162 MG PO (08:18)
[2021-06-15] MEDS: Magnesium Chloride 64 MG Delay Rel.Tablet 128 MG PO (08:18)
[2021-06-15] MEDS: Divalproex Sodium 250 MG Tablet PO ×2 (08:18→17:27)
[2021-06-15] MEDS: Amiodarone 200 MG Tablet PO (08:18)
[2021-06-15] MEDS: Potassium Chloride Oral Tablet 20 MEQ PO (08:18)
[2021-06-15 13:24] VITALS: BP 103/51; PULSE 75
[2021-06-15 15:13] VITALS: BP 114/77; PULSE 87
[2021-06-15 16:00] VITALS: RESP 16; TEMP 36.6; O2SAT 94
[2021-06-15] MEDS: Atorvastatin Calcium 40 MG Tablet PO (21:59)
[2021-06-15] MEDS: Doxepin Hcl 25 MG Capsule PO (21:59)
[2021-06-15 22:00] VITALS: BP 106/72; PULSE 101
[2021-06-16] MEDS: Polyethylene Glycol 3350 17 GM PACKET PO (06:17)
[2021-06-16] MEDS: Doxycycline 100 MG CAPSULE PO ×2 (06:18→18:08)
[2021-06-16] MEDS: Cephalexin 500 MG Capsule PO ×2 (06:18→18:07)
[2021-06-16] MEDS: Paroxetine 20 MG Tablet PO (06:18)
[2021-06-16] MEDS: APIXABAN 5 MG TABLET PO ×2 (06:18→18:08)
[2021-06-16 06:19] VITALS: BP 121/92; PULSE 83
[2021-06-16] MEDS: Acetaminophen 500 MG Tablet 1000 MG PO ×3 (06:19→22:20)
[2021-06-16] MEDS: Metoprolol Tartrate 25 MG Tablet 37.5 MG PO ×3 (06:19→22:19)
[2021-06-16] MEDS: Pantoprazole Sodium 40 MG Tablet PO (06:20)
[2021-06-16] MEDS: Senna/Docusate Sodium 1 Tablet PO ×2 (06:21→18:08)
[2021-06-16] MEDS: Furosemide 40 MG Tablet PO ×2 (06:21→14:46)
[2021-06-16] MEDS: Tolterodine Tartrate 2 MG CAP.SA PO (06:21)
[2021-06-16] MEDS: prednisoLONE eye drops (5 mL) 1 DROP OPTH.BTL 1 DRP LEFT EYE ×3 (06:22→22:21)
[2021-06-16] MEDS: Glycerin/Hypromellose/PEG400 15 ml Bottle 1 DRP RIGHT EYE ×2 (06:22→18:08)
[2021-06-16] MEDS: Magnesium Chloride 64 MG Delay Rel.Tablet 128 MG PO (08:00)
[2021-06-16] MEDS: Potassium Chloride Oral Tablet 20 MEQ PO (08:00)
[2021-06-16] MEDS: Aspirin 81 MG TAB.CHEW 162 MG PO (08:01)
[2021-06-16] MEDS: Divalproex Sodium 250 MG Tablet PO ×2 (08:01→18:08)
[2021-06-16] MEDS: Amiodarone 200 MG Tablet PO (08:01)
[2021-06-16 14:35] VITALS: BP 109/61; PULSE 14; RESP 14; TEMP 36.3; O2SAT 97
[2021-06-16 14:45] VITALS: BP 107/73; PULSE 89
[2021-06-16 22:00] VITALS: PULSE 93; O2SAT 99
[2021-06-16 22:19] VITALS: BP 142/88; PULSE 93
[2021-06-16] MEDS: Doxepin Hcl 25 MG Capsule PO (22:21)
[2021-06-16] MEDS: Atorvastatin Calcium 40 MG Tablet PO (22:22)
[2021-06-17 05:32] LABS: Absolute Lymphocyte Count 1.02 X10^3/uL (0.83-4.51); Basophil# 0.09 X10^3/uL; Basophil% 1.8 % (0-1); Eosinophil# 0.37 X10^3/uL; Eosinophils% 7.2 % (0-5); Hematocrit 29.8 % (40-54); Hemoglobin 9.1 g/dL (13.0-16.5); Lymphocyte # 1.02 X10^3/ul (0.83-4.51); Mean Corp Hgb Conc 30.5 g/dL (32-36); Mean Corpuscular Hgb 30.7 pg (27.0-32.0); Mean Corpuscular Volume 100.7 fL (80-94); Mean Platelet Vol. 8.7 fl (6.2-12.0); Monocyte# 0.61 X10^3/uL; Monocyte% 11.9 % (0-10); NRBC Flagged by Analyzer 0 % (0-5); Neutrophil # 2.99 X10^3/uL (2.7-7.7); Neutrophil % 58.5 % (47-70); Platelet Count 205 K/mm3 (150-450); RBC Distribution Width CV 15.2 % (11.6-14.6); RBC Distribution Width SD 55.9 fl (35.1-43.9); Red Blood Count 2.96 M/mm3 (4.6-6.2); White Blood Count 5.1 K/mm3 (4.4-11.0)
[2021-06-17 05:52] LABS: Anion Gap 4 (5-15); BUN 45 mg/dL (7-18); BUN/Creat Ratio 27.6 RATIO (10-20); Chloride 109 mmol/L (98-107); Creatinine, Serum 1.63 mg/dL (0.70-1.30); EST Glomerular Filtration Rate 44 mL/min (>60); Est Glom Filt Rate - Afr Amer 53 mL/min (>60); Estimated Creatinine Clearance 41.06 ml/min; Glucose 96 mg/dL (74-106); Potassium 4.2 mmol/L (3.5-5.1); Sodium Level 144 mmol/L (136-145)
[2021-06-17] MEDS: Polyethylene Glycol 3350 17 GM PACKET PO (06:22)
[2021-06-17] MEDS: Glycerin/Hypromellose/PEG400 15 ml Bottle 1 DRP RIGHT EYE ×2 (06:24→22:40)
[2021-06-17] MEDS: Acetaminophen 500 MG Tablet 1000 MG PO ×3 (06:24→22:27)
[2021-06-17] MEDS: APIXABAN 5 MG TABLET PO ×2 (06:24→17:51)
[2021-06-17] MEDS: Paroxetine 20 MG Tablet PO (06:24)
[2021-06-17] MEDS: Senna/Docusate Sodium 1 Tablet PO ×2 (06:24→17:52)
[2021-06-17] MEDS: Tolterodine Tartrate 2 MG CAP.SA PO (06:24)
[2021-06-17] MEDS: Furosemide 40 MG Tablet PO (06:24)
[2021-06-17] MEDS: Pantoprazole Sodium 40 MG Tablet PO (06:24)
[2021-06-17] MEDS: prednisoLONE eye drops (5 mL) 1 DROP OPTH.BTL 1 DRP LEFT EYE ×3 (06:27→22:38)
[2021-06-17 06:33] VITALS: BP 105/75; PULSE 79
[2021-06-17] MEDS: Metoprolol Tartrate 25 MG Tablet 37.5 MG PO ×3 (06:33→22:37)
[2021-06-17] MEDS: Aspirin 81 MG TAB.CHEW 162 MG PO (08:30)
[2021-06-17] MEDS: Amiodarone 200 MG Tablet PO (08:31)
[2021-06-17] MEDS: Magnesium Chloride 64 MG Delay Rel.Tablet 128 MG PO (08:31)
[2021-06-17] MEDS: Divalproex Sodium 250 MG Tablet PO ×2 (08:31→17:52)
[2021-06-17] MEDS: Potassium Chloride Oral Tablet 20 MEQ PO (08:31)
[2021-06-17 08:44] VITALS: PULSE 72; RESP 18; O2SAT 96
[2021-06-17 14:03] VITALS: BP 132/77; PULSE 81; RESP 18; TEMP 36.6; O2SAT 97
[2021-06-17 14:05] VITALS: PULSE 81
[2021-06-17] MEDS: Atorvastatin Calcium 40 MG Tablet PO (22:26)
[2021-06-17] MEDS: Doxepin Hcl 25 MG Capsule PO (22:27)
[2021-06-17 22:37] VITALS: BP 139/80; PULSE 77
[2021-06-18] MEDS: Glycerin/Hypromellose/PEG400 15 ml Bottle 1 DRP RIGHT EYE ×2 (06:11→21:22)
[2021-06-18] MEDS: prednisoLONE eye drops (5 mL) 1 DROP OPTH.BTL 1 DRP LEFT EYE ×3 (06:12→21:23)
[2021-06-18] MEDS: Tolterodine Tartrate 2 MG CAP.SA PO (06:12)
[2021-06-18] MEDS: Furosemide 40 MG Tablet PO (06:12)
[2021-06-18] MEDS: Acetaminophen 500 MG Tablet 1000 MG PO ×3 (06:12→21:21)
[2021-06-18] MEDS: Polyethylene Glycol 3350 17 GM PACKET PO (06:12)
[2021-06-18] MEDS: Pantoprazole Sodium 40 MG Tablet PO (06:12)
[2021-06-18 06:13] VITALS: BP 119/73; PULSE 76
[2021-06-18] MEDS: Metoprolol Tartrate 25 MG Tablet 37.5 MG PO ×3 (06:13→21:22)
[2021-06-18] MEDS: APIXABAN 5 MG TABLET PO ×2 (06:13→17:18)
[2021-06-18] MEDS: Senna/Docusate Sodium 1 Tablet PO ×2 (06:13→17:18)
[2021-06-18] MEDS: Paroxetine 20 MG Tablet PO (06:13)
[2021-06-18 06:20] LABS: Anion Gap 4 (5-15); BUN 52 mg/dL (7-18); BUN/Creat Ratio 33.5 RATIO (10-20); Calcium,Total 8.5 mg/dL (8.5-10.1); Chloride 109 mmol/L (98-107); Creatinine, Serum 1.55 mg/dL (0.70-1.30); EST Glomerular Filtration Rate 47 mL/min (>60); Est Glom Filt Rate - Afr Amer 56 mL/min (>60); Estimated Creatinine Clearance 43.18 ml/min; Glucose 101 mg/dL (74-106); Potassium 4.2 mmol/L (3.5-5.1); Sodium Level 143 mmol/L (136-145)
[2021-06-18] MEDS: Magnesium Chloride 64 MG Delay Rel.Tablet 128 MG PO (08:36)
[2021-06-18] MEDS: Amiodarone 200 MG Tablet PO (08:36)
[2021-06-18] MEDS: Potassium Chloride Oral Tablet 20 MEQ PO (08:36)
[2021-06-18] MEDS: Aspirin 81 MG TAB.CHEW 162 MG PO (08:36)
[2021-06-18 08:49] VITALS: BP 109/61; PULSE 90
[2021-06-18] MEDS: Divalproex Sodium 250 MG Tablet PO ×2 (09:49→17:18)
[2021-06-18 14:28] VITALS: BP 121/76; PULSE 79
[2021-06-18 15:13] VITALS: BP 121/76; PULSE 75; RESP 20; TEMP 36.5; O2SAT 95
[2021-06-18] MEDS: Atorvastatin Calcium 40 MG Tablet PO (21:21)
[2021-06-18] MEDS: Doxepin Hcl 25 MG Capsule PO (21:21)
[2021-06-18 21:22] VITALS: BP 121/69; PULSE 100
[2021-06-18 21:29] VITALS: PULSE 78; RESP 18
[2021-06-19] MEDS: prednisoLONE eye drops (5 mL) 1 DROP OPTH.BTL 1 DRP LEFT EYE ×3 (06:37→22:16)
[2021-06-19] MEDS: Glycerin/Hypromellose/PEG400 15 ml Bottle 1 DRP RIGHT EYE ×2 (06:38→22:16)
[2021-06-19 06:39] VITALS: BP 137/73; PULSE 78
[2021-06-19] MEDS: Acetaminophen 500 MG Tablet 1000 MG PO ×3 (06:39→22:17)
[2021-06-19] MEDS: Polyethylene Glycol 3350 17 GM PACKET PO (06:39)
[2021-06-19] MEDS: Metoprolol Tartrate 25 MG Tablet 37.5 MG PO ×3 (06:39→22:19)
[2021-06-19] MEDS: Senna/Docusate Sodium 1 Tablet PO ×2 (06:40→17:05)
[2021-06-19] MEDS: Furosemide 40 MG Tablet PO (06:41)
[2021-06-19] MEDS: Pantoprazole Sodium 40 MG Tablet PO (06:41)
[2021-06-19] MEDS: Tolterodine Tartrate 2 MG CAP.SA PO (06:41)
[2021-06-19] MEDS: APIXABAN 5 MG TABLET PO ×2 (06:42→17:05)
[2021-06-19] MEDS: Paroxetine 20 MG Tablet PO (06:43)
[2021-06-19] MEDS: Amiodarone 200 MG Tablet PO (08:58)
[2021-06-19] MEDS: Potassium Chloride Oral Tablet 20 MEQ PO (08:58)
[2021-06-19] MEDS: Magnesium Chloride 64 MG Delay Rel.Tablet 128 MG PO (08:58)
[2021-06-19] MEDS: Aspirin 81 MG TAB.CHEW 162 MG PO (08:59)
[2021-06-19 11:56] VITALS: PULSE 94; O2SAT 99
[2021-06-19 15:13] VITALS: BP 130/83; PULSE 92
[2021-06-19 16:00] VITALS: BP 108/73; PULSE 75; RESP 20; TEMP 36.3; O2SAT 98
[2021-06-19] MEDS: Divalproex Sodium 250 MG Tablet PO (17:04)
--- NOTE | 2021-06-19 18:50 | RAD_ITS ---
STUDY: X-RAY CHEST REASON FOR EXAM: Male, 75 years old. cough TECHNIQUE: PA and lateral COMPARISON: 03/04/2021. FINDINGS: The lungs are clear and expanded. There is no demonstrated pleural abnormality. Normal size heart. There are postsurgical changes of a median sternotomy procedure. Normal mediastinum and rosi. Normal visualized pulmonary arteries. Normal visualized aortic arch and descending thoracic aorta. Normal visualized thoracic spine. Normal visualized ribs, clavicles, and shoulders. There is no demonstrated abnormality of the visualized soft tissue structures of the upper abdomen. RAD/Chest PA and Lateral IMPRESSION: Postsurgical changes involving the heart otherwise normal x-ray examination of the chest. Electronically Signed: Ranjith Tijerina MD at 22:53 EDT ,
[2021-06-19] MEDS: Atorvastatin Calcium 40 MG Tablet PO (22:18)
[2021-06-19 22:19] VITALS: BP 139/88; PULSE 94
[2021-06-19] MEDS: Doxepin Hcl 25 MG Capsule PO (22:19)
[2021-06-20] MEDS: prednisoLONE eye drops (5 mL) 1 DROP OPTH.BTL 1 DRP LEFT EYE ×3 (06:12→21:43)
[2021-06-20] MEDS: Glycerin/Hypromellose/PEG400 15 ml Bottle 1 DRP RIGHT EYE ×2 (06:12→21:44)
[2021-06-20] MEDS: Polyethylene Glycol 3350 17 GM PACKET PO (06:14)
[2021-06-20] MEDS: Acetaminophen 500 MG Tablet 1000 MG PO ×3 (06:14→21:47)
[2021-06-20] MEDS: Furosemide 40 MG Tablet PO (06:14)
[2021-06-20] MEDS: Paroxetine 20 MG Tablet PO (06:14)
[2021-06-20 06:15] VITALS: BP 120/81; PULSE 80
[2021-06-20] MEDS: APIXABAN 5 MG TABLET PO ×2 (06:15→17:26)
[2021-06-20] MEDS: Metoprolol Tartrate 25 MG Tablet 37.5 MG PO ×3 (06:15→21:46)
[2021-06-20] MEDS: Tolterodine Tartrate 2 MG CAP.SA PO (06:15)
[2021-06-20] MEDS: Senna/Docusate Sodium 1 Tablet PO ×2 (06:15→17:25)
[2021-06-20] MEDS: Pantoprazole Sodium 40 MG Tablet PO (06:15)
[2021-06-20] MEDS: Aspirin 81 MG TAB.CHEW 162 MG PO (08:17)
[2021-06-20] MEDS: Magnesium Chloride 64 MG Delay Rel.Tablet 128 MG PO (08:17)
[2021-06-20] MEDS: Amiodarone 200 MG Tablet PO (08:17)
[2021-06-20] MEDS: Potassium Chloride Oral Tablet 20 MEQ PO (08:17)
[2021-06-20] MEDS: Divalproex Sodium 250 MG Tablet PO ×2 (08:27→17:26)
[2021-06-20 14:18] VITALS: PULSE 79
[2021-06-20 14:23] VITALS: BP 114/66; PULSE 79; RESP 10; TEMP 36.4; O2SAT 96
[2021-06-20 21:46] VITALS: BP 149/86; PULSE 100
[2021-06-20] MEDS: Atorvastatin Calcium 40 MG Tablet PO (21:46)
[2021-06-20] MEDS: Doxepin Hcl 25 MG Capsule PO (21:47)
[2021-06-20 22:00] VITALS: RESP 16; O2SAT 96
[2021-06-21 06:26] LABS: Bedside Glucose 91 mg/dL (74-106)
[2021-06-21] MEDS: Polyethylene Glycol 3350 17 GM PACKET PO (06:29)
[2021-06-21] MEDS: Acetaminophen 500 MG Tablet 1000 MG PO ×3 (06:29→22:38)
[2021-06-21] MEDS: Senna/Docusate Sodium 1 Tablet PO ×2 (06:29→17:47)
[2021-06-21] MEDS: Paroxetine 20 MG Tablet PO (06:29)
[2021-06-21] MEDS: Pantoprazole Sodium 40 MG Tablet PO (06:29)
[2021-06-21 06:30] VITALS: BP 137/80; PULSE 69
[2021-06-21] MEDS: Furosemide 40 MG Tablet PO (06:30)
[2021-06-21] MEDS: Metoprolol Tartrate 25 MG Tablet 37.5 MG PO ×3 (06:30→22:38)
[2021-06-21] MEDS: Tolterodine Tartrate 2 MG CAP.SA PO (06:30)
[2021-06-21] MEDS: APIXABAN 5 MG TABLET PO ×2 (06:31→17:47)
[2021-06-21] MEDS: prednisoLONE eye drops (5 mL) 1 DROP OPTH.BTL 1 DRP LEFT EYE ×3 (06:31→22:41)
[2021-06-21] MEDS: Glycerin/Hypromellose/PEG400 15 ml Bottle 1 DRP RIGHT EYE ×2 (06:31→22:40)
[2021-06-21] MEDS: Aspirin 81 MG TAB.CHEW 162 MG PO (08:27)
[2021-06-21] MEDS: Divalproex Sodium 250 MG Tablet PO ×2 (08:28→17:46)
[2021-06-21] MEDS: Amiodarone 200 MG Tablet PO (08:28)
[2021-06-21] MEDS: Potassium Chloride Oral Tablet 20 MEQ PO (08:29)
[2021-06-21] MEDS: Magnesium Chloride 64 MG Delay Rel.Tablet 128 MG PO (08:29)
[2021-06-21 14:04] VITALS: BP 126/70; PULSE 92
[2021-06-21 14:17] VITALS: BP 115/86; PULSE 80; RESP 14; TEMP 36.4; O2SAT 97
[2021-06-21 22:38] VITALS: BP 144/87; PULSE 86
[2021-06-21] MEDS: Atorvastatin Calcium 40 MG Tablet PO (22:38)
[2021-06-21] MEDS: Doxepin Hcl 25 MG Capsule PO (22:38)
[2021-06-22] MEDS: Polyethylene Glycol 3350 17 GM PACKET PO (06:54)
[2021-06-22] MEDS: Tolterodine Tartrate 2 MG CAP.SA PO (06:54)
[2021-06-22] MEDS: Furosemide 40 MG Tablet PO (06:55)
[2021-06-22] MEDS: APIXABAN 5 MG TABLET PO ×2 (06:55→17:41)
[2021-06-22] MEDS: Acetaminophen 500 MG Tablet 1000 MG PO ×3 (06:55→20:51)
[2021-06-22] MEDS: Pantoprazole Sodium 40 MG Tablet PO (06:55)
[2021-06-22] MEDS: Senna/Docusate Sodium 1 Tablet PO (06:55)
[2021-06-22] MEDS: Paroxetine 20 MG Tablet PO (06:55)
[2021-06-22 06:56] VITALS: BP 134/69; PULSE 73
[2021-06-22] MEDS: Metoprolol Tartrate 25 MG Tablet 37.5 MG PO ×3 (06:56→20:50)
[2021-06-22] MEDS: prednisoLONE eye drops (5 mL) 1 DROP OPTH.BTL 1 DRP LEFT EYE ×3 (07:00→20:52)
[2021-06-22] MEDS: Glycerin/Hypromellose/PEG400 15 ml Bottle 1 DRP RIGHT EYE ×2 (07:01→20:48)
[2021-06-22] MEDS: Potassium Chloride Oral Tablet 20 MEQ PO (08:24)
[2021-06-22] MEDS: Magnesium Chloride 64 MG Delay Rel.Tablet 128 MG PO (08:24)
[2021-06-22] MEDS: Aspirin 81 MG TAB.CHEW 162 MG PO (08:24)
[2021-06-22] MEDS: Amiodarone 200 MG Tablet PO (08:24)
[2021-06-22] MEDS: Divalproex Sodium 250 MG Tablet PO ×2 (08:25→17:41)
--- NOTE | 2021-06-22 08:58 | NURSING ---
Notified Dr. Pradhan of pt's increased weight, received order to start Lasix IV BID 40mg, start first dose now and stop PO Lasix. Also pt fluid restriction changed to 1500ml daily.
[2021-06-22 10:00] VITALS: PULSE 80; RESP 18; O2SAT 99
[2021-06-22] MEDS: 0.9% Saline Lock 10 ML Syringe IV (10:02)
[2021-06-22] MEDS: Furosemide 40 MG/4 ML Vial IV ×2 (10:02→17:41)
[2021-06-22 13:58] VITALS: BP 112/70; PULSE 92
[2021-06-22 15:20] VITALS: BP 112/70; PULSE 97; RESP 14; TEMP 36.8; O2SAT 99
[2021-06-22 17:46] VITALS: BP 143/77; PULSE 99
[2021-06-22 20:50] VITALS: BP 115/86; PULSE 96
[2021-06-22] MEDS: Atorvastatin Calcium 40 MG Tablet PO (20:50)
[2021-06-22] MEDS: Doxepin Hcl 25 MG Capsule PO (20:51)
[2021-06-23] MEDS: prednisoLONE eye drops (5 mL) 1 DROP OPTH.BTL 1 DRP LEFT EYE ×3 (05:34→21:17)
[2021-06-23] MEDS: Glycerin/Hypromellose/PEG400 15 ml Bottle 1 DRP RIGHT EYE ×2 (05:34→21:16)
[2021-06-23] MEDS: Tolterodine Tartrate 2 MG CAP.SA PO (05:35)
[2021-06-23] MEDS: Acetaminophen 500 MG Tablet 1000 MG PO ×3 (05:35→21:18)
[2021-06-23 05:36] VITALS: BP 141/99; PULSE 73
[2021-06-23] MEDS: Metoprolol Tartrate 25 MG Tablet 37.5 MG PO ×3 (05:36→21:13)
[2021-06-23] MEDS: Paroxetine 20 MG Tablet PO (05:37)
[2021-06-23] MEDS: Pantoprazole Sodium 40 MG Tablet PO (05:37)
[2021-06-23] MEDS: APIXABAN 5 MG TABLET PO ×2 (05:38→17:59)
[2021-06-23] MEDS: Senna/Docusate Sodium 1 Tablet PO ×2 (05:39→17:59)
[2021-06-23] MEDS: Furosemide 40 MG/4 ML Vial IV ×2 (05:39→13:54)
[2021-06-23 06:10] LABS: Absolute Lymphocyte Count 1.13 X10^3/uL (0.83-4.51); Absolute Neutrophil Count 3.7 X10^3/uL (2.0-7.7); Basophil# 0.09 X10^3/uL; Basophil% 1.5 % (0-1); Eosinophil# 0.38 X10^3/uL; Eosinophils% 6.3 % (0-5); Hemoglobin 9.7 g/dL (13.0-16.5); Lymphocyte # 1.13 X10^3/ul (0.83-4.51); Lymphocyte % 18.6 % (19-41); Mean Corp Hgb Conc 29.4 g/dL (32-36); Mean Corpuscular Hgb 29.2 pg (27.0-32.0); Mean Corpuscular Volume 99.4 fL (80-94); Mean Platelet Vol. 8.9 fl (6.2-12.0); Monocyte# 0.71 X10^3/uL; Monocyte% 11.7 % (0-10); NRBC Flagged by Analyzer 0 % (0-5); Neutrophil # 3.73 X10^3/uL (2.7-7.7); Neutrophil % 61.2 % (47-70); Platelet Count 191 K/mm3 (150-450); RBC Distribution Width CV 15.1 % (11.6-14.6); RBC Distribution Width SD 54.4 fl (35.1-43.9); Red Blood Count 3.32 M/mm3 (4.6-6.2); White Blood Count 6.1 K/mm3 (4.4-11.0)
[2021-06-23 06:36] LABS: Anion Gap 6 (5-15); BUN 45 mg/dL (7-18); BUN/Creat Ratio 27.4 RATIO (10-20); Calcium,Total 8.9 mg/dL (8.5-10.1); Chloride 109 mmol/L (98-107); Creatinine, Serum 1.64 mg/dL (0.70-1.30); EST Glomerular Filtration Rate 44 mL/min (>60); Est Glom Filt Rate - Afr Amer 53 mL/min (>60); Estimated Creatinine Clearance 40.81 ml/min; Glucose 114 mg/dL (74-106); Potassium 4.3 mmol/L (3.5-5.1); Sodium Level 145 mmol/L (136-145)
[2021-06-23] MEDS: Magnesium Chloride 64 MG Delay Rel.Tablet 128 MG PO (08:32)
[2021-06-23] MEDS: Potassium Chloride Oral Tablet 20 MEQ PO (08:32)
[2021-06-23] MEDS: Amiodarone 200 MG Tablet PO (08:32)
[2021-06-23] MEDS: Aspirin 81 MG TAB.CHEW 162 MG PO (08:32)
[2021-06-23] MEDS: Divalproex Sodium 250 MG Tablet PO ×2 (08:33→17:59)
[2021-06-23 13:53] VITALS: BP 119/80; PULSE 98; RESP 18; TEMP 36.8; O2SAT 99
[2021-06-23 13:54] VITALS: PULSE 98
[2021-06-23 21:13] VITALS: BP 123/83; PULSE 93
[2021-06-23] MEDS: Atorvastatin Calcium 40 MG Tablet PO (21:13)
[2021-06-23] MEDS: Doxepin Hcl 25 MG Capsule PO (21:17)
[2021-06-24] VITALS (8 sets, daily range): BP systolic 81–143; BP diastolic 46–87; PULSE 78–107; RESP 18; TEMP 36.3–36.6; O2SAT 94–96
[2021-06-24 05:37] LABS: Absolute Lymphocyte Count 1.03 X10^3/uL (0.83-4.51); Absolute Neutrophil Count 3.5 X10^3/uL (2.0-7.7); Basophil# 0.06 X10^3/uL; Basophil% 1.1 % (0-1); Eosinophil# 0.29 X10^3/uL; Eosinophils% 5.2 % (0-5); Hematocrit 29.4 % (40-54); Lymphocyte # 1.03 X10^3/ul (0.83-4.51); Lymphocyte % 18.3 % (19-41); Mean Corp Hgb Conc 30.6 g/dL (32-36); Mean Corpuscular Hgb 30.2 pg (27.0-32.0); Mean Corpuscular Volume 98.7 fL (80-94); Mean Platelet Vol. 8.6 fl (6.2-12.0); Monocyte# 0.71 X10^3/uL; Monocyte% 12.6 % (0-10); NRBC Flagged by Analyzer 0 % (0-5); Neutrophil % 62.1 % (47-70); Platelet Count 158 K/mm3 (150-450); RBC Distribution Width CV 14.9 % (11.6-14.6); RBC Distribution Width SD 54.2 fl (35.1-43.9); Red Blood Count 2.98 M/mm3 (4.6-6.2); White Blood Count 5.6 K/mm3 (4.4-11.0)
[2021-06-24] MEDS: Glycerin/Hypromellose/PEG400 15 ml Bottle 1 DRP RIGHT EYE ×2 (05:53→21:06)
[2021-06-24] MEDS: Furosemide 40 MG/4 ML Vial IV ×2 (05:54→14:05)
[2021-06-24] MEDS: APIXABAN 5 MG TABLET PO ×2 (05:54→17:49)
[2021-06-24] MEDS: Paroxetine 20 MG Tablet PO (05:54)
[2021-06-24] MEDS: Tolterodine Tartrate 2 MG CAP.SA PO (05:54)
[2021-06-24] MEDS: Acetaminophen 500 MG Tablet 1000 MG PO ×3 (05:55→21:09)
[2021-06-24] MEDS: Pantoprazole Sodium 40 MG Tablet PO (05:55)
[2021-06-24] MEDS: prednisoLONE eye drops (5 mL) 1 DROP OPTH.BTL 1 DRP LEFT EYE ×3 (05:55→21:06)
[2021-06-24] MEDS: Metoprolol Tartrate 25 MG Tablet 37.5 MG PO ×3 (05:59→21:06)
[2021-06-24] MEDS: 0.9% Saline Lock 10 ML Syringe IV ×2 (06:03→14:15)
[2021-06-24 06:06] LABS: Anion Gap 5 (5-15); BUN 48 mg/dL (7-18); BUN/Creat Ratio 29.4 RATIO (10-20); Calcium,Total 8.7 mg/dL (8.5-10.1); Chloride 110 mmol/L (98-107); Creatinine, Serum 1.63 mg/dL (0.70-1.30); EST Glomerular Filtration Rate 44 mL/min (>60); Est Glom Filt Rate - Afr Amer 53 mL/min (>60); Estimated Creatinine Clearance 41.06 ml/min; Glucose 101 mg/dL (74-106); Potassium 3.7 mmol/L (3.5-5.1); Sodium Level 146 mmol/L (136-145)
[2021-06-24] MEDS: Potassium Chloride Oral Tablet 20 MEQ PO (09:13)
[2021-06-24] MEDS: Magnesium Chloride 64 MG Delay Rel.Tablet 128 MG PO (09:13)
[2021-06-24] MEDS: Aspirin 81 MG TAB.CHEW 162 MG PO (09:13)
[2021-06-24] MEDS: Divalproex Sodium 250 MG Tablet PO ×2 (09:15→17:49)
--- NOTE | 2021-06-24 10:45 | CASEMGMT ---
Social Work Spoke with pt about setting DC date for 07/03. Pt expressed he does not feel ready to DC home yet r/t his fluid retention and not able to care for . Offered to rediscuss with IDT . Spoke with IDT - nursing states fluid retention is chronic and pt is noncompliant with elevation of legs. Therapy agrees pt cannot care for at home and was not safe to prior to admission. However, IDT still agrees to DC 07/03. Revisited with pt to update on above. Offered to assist with resources to hire help for at home or for pt to DC to SNF. Pt denied SNF tx and states they cannot afford to hire help. Offered BARTOLOME mikala for Passport program. SW explained [facility] PT/OT/SN/SW will be ordered, but only to assist pt. Pt expressed understanding. Provided BARTOLOME mikala. Explained appeal rights if pt still does not agree with DC date. Pt declined. Pt needs FWW at DC. Referral made to [facility]. Provided list of skilled HHC agencies with quality and resource data. Pt to choose HHC. Plan: DC home with 07/03, [facility] PT/OT/SN/SW, FWW Itzel Wagner, MEDICAL LABORATORY TECHNOLOGIST PRABHU
[2021-06-24] MEDS: Senna/Docusate Sodium 1 Tablet PO (17:49)
[2021-06-24] MEDS: Doxepin Hcl 25 MG Capsule PO (21:08)
[2021-06-24] MEDS: Atorvastatin Calcium 40 MG Tablet PO (21:08)
--- NOTE | 2021-06-24 21:23 | DS.PCM_ITS ---
Providers Date of Admission: 06/02/21 Primary Care Physician: Dr. Wilbert Pradhan MD Reason For Visit: CABG Diagnosis Discharge Diagnosis (1) Debility: Status: Acute Code(s): R53.81 - Other malaise (2) History of coronary artery bypass graft x 3: Status: Acute Code(s): Z95.1 - Presence of aortocoronary bypass graft (3) CAD (coronary artery disease): Status: Acute Code(s): I25.10 - Atherosclerotic heart disease of deering coronary artery without angina pectoris (4) Atrial fibrillation: Status: Acute Code(s): I48.91 - Unspecified atrial fibrillation (5) Brantley esophagus: Status: Acute Code(s): K22.70 - Brantley's esophagus without dysplasia (6) Depression: Status: Acute Code(s): F32.A - Depression, unspecified (7) Overactive bladder: Status: Acute Code(s): N32.81 - Overactive bladder (8) Hyperlipidemia: Status: Acute Code(s): E78.5 - Hyperlipidemia, unspecified (9) Mood disorder: Status: Acute Code(s): F39 - Unspecified mood [affective] disorder (10) Chronic kidney disease, stage 3a: Status: Chronic Code(s): N18.31 - Chronic kidney disease, stage 3a Medications at Discharge Home Medications apixaban 5 mg tablet 5 mg PO BID 11/07/18 atorvastatin 40 mg tablet 40 mg PO QHS 11/07/18 pantoprazole 40 mg tablet,delayed release 40 mg PO DAILY 11/07/18 paroxetine HCl 20 mg tablet 20 mg PO DAILY 11/07/18 trospium 20 mg tablet 20 mg PO BID 07/18/19 carboxymethylcellulose sodium 1 drp EACH EYE BID 06/02/21 prednisolone acetate 1 drp EACH EYE TID 06/02/21 amiodarone 200 mg PO DAILYCM 30 Days #30 tab 06/24/21 divalproex 250 mg PO BIDCM #0 tab 06/24/21 doxepin 25 mg PO QHS 30 Days #30 cap 06/24/21 furosemide 40 mg PO BID 30 Days #60 tab 06/24/21 magnesium chloride [Mag 64] 128 mg PO DAILYCM 30 Days #60 tab 06/24/21 metoprolol tartrate 37.5 mg PO Q8 30 Days #135 tab 06/24/21 potassium chloride [Klor-Con M20] 20 meq PO DAILYCM 30 Days #30 tab 06/24/21 Hospital Course Operations - (CABG x 3, left atrial appendage, MAZE procedure) Procedures None Summary of Care Provided Minutes Spent on Discharge: 35 Hospital Course: 75 year old male with below past medical history hospitalized for multivessel coronary artery disease, underwent CABG x 3, left atrial appenda ge, MAZE procedure 05/27/2021, admitted to TCU with debility, here for rehabilitation, strengthening, prior to discharge home with . Discharge home with 07/03/2021, Home Health Care PT/OT/SN/SW, Front wheeled walker. Physical Exam Const alert General Appearance: cooperative HEENT normocephalic Eyes PERRL and EOMs intact bilaterally Neck supple, no JVD and no carotid bruits Resp normal respiratory effort, normal air movement and clear to auscultation bilaterally Cardio regular rate and regular rhythm GI normal to inspection, nondistended, normoactive bowel sounds, non-tender and non-distended Extremity normal capillary refill General Extremity: Negative for edema Skin no rashes or lesions noted General Skin Exam: no breakdown Psych affect normal Appearance: appropriate Weight / BMI Weight Weight: 123.014 kg Body Mass Index (BMI) 36.2 ABG / Lab / Microbiology Data Result Diagrams: 06/24/21 05:21 06/24/21 05:21 Laboratory: Laboratory Results - last 24 hr 06/24/21 05:21: WBC 5.6, RBC 2.98 L, Hgb 9.0 L, Hct 29.4 L, MCV 98.7 H, MCH 30.2, MCHC 30.6 L, RDW Std Deviation 54.2 H, RDW Coeff of Sylwia 14.9 H, Plt Count 158, MPV 8.6, Immature Gran % (Auto) 0.700, Neut % (Auto) 62.1, Lymph % (Auto) 18.3 L, [place] % (Auto) 12.6 H, Eos % (Auto) 5.2 H, Baso % (Auto) 1.1 H, Absolute Neuts (auto) 3.5, Absolute Lymphs (auto) 1.03, Nucleated RBC % 0 06/24/21 05:21: Sodium 146 H, Potassium 3.7, Chloride 110 H, Carbon Dioxide 31.0, Anion Gap 5, BUN 48 H, Creatinine 1.63 H, Estim Creat Clear Calc 41.06, Est GFR (MDRD) Af Amer 53 L, Est GFR (MDRD) Non-Af 44 L, BUN/Creatinine Ratio 29.4 H, Glucose 101, Calcium 8.7 Microbiology: Microbiology 06/09/21 06:25 Nasal Secretion SARS-CoV-2 Antigen (Rapid) - Final 06/04/21 13:25 Nasal Secretion SARS-CoV-2 Antigen (Rapid) - Final D/C Instructions Discharge Diet: 6 Cup Fluid Restriction and 2000 mg Sodium Diet Discharge Activity: Return to Normal Activity, May Not Shower and Use Walker Weight Bearing Status: Weight bearing as tolerated Call your doctor if you observe: Fever of 101 or Higher, Inability to urinate, Inability to have a bowel movement, Shortness of breath, Dizziness, Fainting spells, Chest pain and Uncontrolled pain Additional Instructions: Discharge home with 07/03/2021, Home Health Care PT/OT/SN/SW, Front wheeled walker. Please Follow Up With: Cardiology When: As scheduled. Meaningful Use Info Meaningful Use Diagnoses (Choose all that apply): None applicable Discharge Plan Admission Admit Date/Time: 06/02/21 19:40 Primary Reason for Your Visit: Debility. Attending Provider: Wilbert Pradhan Chi Primary Care Provider: Wilbert Pradhan Chi Instructions Additional Instructions / Restrictions: Discharge home with 07/03/2021, Home Health Care PT/OT/SN/SW, Front wheeled walker. Discharge Orders/Prescriptions Prescriptions: New divalproex 250 mg Tablet,Delayed Release (Dr/Ec) 250 mg PO BIDCM Qty: 0 RF: 0 amiodarone 200 mg Tablet 200 mg PO DAILYCM 30 Days Qty: 30 RF: 0 potassium chloride [Klor-Con M20] 20 mEq Tablet,Er Particles/Crystals 20 meq PO DAILYCM 30 Days Qty: 30 RF: 0 metoprolol tartrate 25 mg Tablet 37.5 mg PO Q8 30 Days Qty: 135 RF: 0 Mag 64 64 mg Tablet,Delayed Release (Dr/Ec) 128 mg PO DAILYCM 30 Days Qty: 60 RF: 0 Continued pantoprazole 40 mg tablet,delayed release (DR/EC) 40 mg PO DAILY RF: 0 Eliquis 5 mg tablet 5 mg PO BID RF: 0 atorvastatin 40 mg tablet 40 mg PO QHS RF: 0 paroxetine HCl 20 mg tablet 20 mg PO DAILY RF: 0 trospium 20 mg tablet 20 mg PO BID RF: 0 prednisolone acetate 1 % Drops,Suspension 1 drp EACH EYE TID RF: 0 carboxymethylcellulose sodium 1 % Drops, Liquid Gel 1 drp EACH EYE BID RF: 0 furosemide 40 mg tablet 40 mg PO BID 30 Days Qty: 60 RF: 0 doxepin 25 mg Capsule 25 mg PO QHS 30 Days Qty: 30 RF: 0 Discontinued acetaminophen [Tylenol Extra Strength] 500 mg tablet 1,000 mg PO 4X/DAY RF: 0 cyanocobalamin (vitamin B-12) [Vitamin B-12] 1,000 mcg tablet 1,000 mcg PO BID RF: 0 divalproex 250 mg tablet,delayed release (DR/EC) 250 mg PO DAILY RF: 0 aspirin 81 mg Tablet,Chewable 162 mg PO DAILY RF: 0 lidocaine 4 % Adhesive Patch,Medicated 1 patch TOPICAL DAILY PRN (Reason: Pain) RF: 0 albuterol sulfate [Proventil] 2.5 mg /3 mL (0.083 %) Solution For Nebulization 2.5 mg INHALATION Q2H PRN PRN (Reason: wheezing/sob) RF: 0 polyethylene glycol 3350 [Miralax] 17 gram Powder In Packet 17 g PO DAILY RF: 0 bacitracin 500 unit/gram Ointment 1 applic TOPICAL TID RF: 0 bisacodyl 10 mg Suppository 10 mg MI DAILY PRN (Reason: Constipation) RF: 0 magnesium oxide 400 mg magnesium Tablet 400 mg PO DAILY RF: 0 tramadol 50 mg Tablet 100 mg PO Q6H PRN PRN (Reason: Pain) RF: 0 sennosides-docusate sodium [Senna-S] 8.6-50 mg Tablet 1 tab-cap PO BID RF: 0 amiodarone 200 mg tablet 200 mg PO BID RF: 0 cholecalciferol (vitamin D3) 50 mcg (2,000 unit) Capsule 50 mcg PO DAILY RF: 0 metoprolol tartrate 25 mg tablet 37.5 mg PO Q8H RF: 0 Referrals / Follow Up: Wilbert Pradhan Chi, MD [Primary Care Provider] - Within 1 Week Disposition Disposition (needs filled in before D/C Order can be placed): Home Health Service
[2021-06-25] MEDS: prednisoLONE eye drops (5 mL) 1 DROP OPTH.BTL 1 DRP LEFT EYE ×3 (05:39→22:36)
[2021-06-25] MEDS: Glycerin/Hypromellose/PEG400 15 ml Bottle 1 DRP RIGHT EYE ×2 (05:39→22:36)
[2021-06-25 05:40] VITALS: BP 151/95; PULSE 87
[2021-06-25] MEDS: APIXABAN 5 MG TABLET PO ×2 (05:40→17:59)
[2021-06-25] MEDS: Tolterodine Tartrate 2 MG CAP.SA PO (05:40)
[2021-06-25] MEDS: Pantoprazole Sodium 40 MG Tablet PO (05:40)
[2021-06-25] MEDS: Senna/Docusate Sodium 1 Tablet PO ×2 (05:40→17:59)
[2021-06-25] MEDS: Metoprolol Tartrate 25 MG Tablet 37.5 MG PO ×3 (05:40→22:39)
[2021-06-25] MEDS: Paroxetine 20 MG Tablet PO (05:40)
[2021-06-25] MEDS: Acetaminophen 500 MG Tablet 1000 MG PO ×3 (05:41→22:40)
[2021-06-25] MEDS: Furosemide 40 MG/4 ML Vial IV ×2 (05:43→14:57)
[2021-06-25 06:05] LABS: Anion Gap 4 (5-15); BUN 47 mg/dL (7-18); BUN/Creat Ratio 28.1 RATIO (10-20); Calcium,Total 8.9 mg/dL (8.5-10.1); Chloride 109 mmol/L (98-107); Creatinine, Serum 1.67 mg/dL (0.70-1.30); EST Glomerular Filtration Rate 43 mL/min (>60); Est Glom Filt Rate - Afr Amer 52 mL/min (>60); Estimated Creatinine Clearance 40.08 ml/min; Glucose 110 mg/dL (74-106); Potassium 3.8 mmol/L (3.5-5.1); Sodium Level 145 mmol/L (136-145)
[2021-06-25] MEDS: Aspirin 81 MG TAB.CHEW 162 MG PO (08:36)
[2021-06-25] MEDS: Magnesium Chloride 64 MG Delay Rel.Tablet 128 MG PO (08:36)
[2021-06-25] MEDS: Amiodarone 200 MG Tablet PO (08:36)
[2021-06-25] MEDS: Divalproex Sodium 250 MG Tablet PO ×2 (08:36→17:59)
[2021-06-25] MEDS: Potassium Chloride Oral Tablet 20 MEQ PO (08:36)
[2021-06-25 10:00] VITALS: PULSE 86; RESP 18; O2SAT 97
[2021-06-25 14:45] VITALS: BP 153/84; PULSE 81; RESP 18; TEMP 35.8
[2021-06-25 14:56] VITALS: PULSE 81
[2021-06-25] MEDS: 0.9% Saline Lock 10 ML Syringe IV (14:59)
[2021-06-25 16:00] VITALS: BP 112/79; PULSE 82; RESP 14; TEMP 36.6; O2SAT 99
--- NOTE | 2021-06-25 16:12 | CASEMGMT ---
Social Work Followed up pt on [facility] company. Pt prefers [facility] - requesting JR at PT. Explained that can be requested at scheduling. Referral made to [facility] PT/OT/SN/SW. Itzel Wagner ,BREWERY TECHNICIAN EDITOR NEWSPAPER
--- NOTE | 2021-06-25 16:31 | CASEMGMT ---
Social Work Received completed BARTOLOME mikala. Faxed to [facility]. Left message with updating on DC referrals and BARTOLOME mikala submission. Itzel Wagner, HEATER PLANER OPERATOR ELECTRONIC LAB TECHNICIAN
[2021-06-25 22:39] VITALS: BP 142/80; PULSE 98
[2021-06-25] MEDS: Atorvastatin Calcium 40 MG Tablet PO (22:39)
[2021-06-25] MEDS: Doxepin Hcl 25 MG Capsule PO (22:40)
[2021-06-26] VITALS (7 sets, daily range): BP systolic 105–142; BP diastolic 65–94; PULSE 72–104; RESP 16–18; TEMP 36.8; O2SAT 95
--- NOTE | 2021-06-26 | PCA ---
patient called down for network cable installer to help put him into bed, when patient is ad so
[2021-06-26 06:21] LABS: Anion Gap 6 (5-15); BUN 46 mg/dL (7-18); BUN/Creat Ratio 27.5 RATIO (10-20); Calcium,Total 8.5 mg/dL (8.5-10.1); Chloride 110 mmol/L (98-107); Creatinine, Serum 1.67 mg/dL (0.70-1.30); EST Glomerular Filtration Rate 43 mL/min (>60); Est Glom Filt Rate - Afr Amer 52 mL/min (>60); Estimated Creatinine Clearance 40.08 ml/min; Glucose 98 mg/dL (74-106); Potassium 3.8 mmol/L (3.5-5.1); Sodium Level 147 mmol/L (136-145)
[2021-06-26] MEDS: Glycerin/Hypromellose/PEG400 15 ml Bottle 1 DRP RIGHT EYE ×2 (07:13→21:58)
[2021-06-26] MEDS: prednisoLONE eye drops (5 mL) 1 DROP OPTH.BTL 1 DRP LEFT EYE ×3 (07:14→21:57)
[2021-06-26] MEDS: APIXABAN 5 MG TABLET PO ×2 (07:16→17:20)
[2021-06-26] MEDS: Tolterodine Tartrate 2 MG CAP.SA PO (07:16)
[2021-06-26] MEDS: Polyethylene Glycol 3350 17 GM PACKET PO (07:16)
[2021-06-26] MEDS: Acetaminophen 500 MG Tablet 1000 MG PO ×3 (07:16→21:59)
[2021-06-26] MEDS: Metoprolol Tartrate 25 MG Tablet 37.5 MG PO ×3 (07:16→21:59)
[2021-06-26] MEDS: Senna/Docusate Sodium 1 Tablet PO ×2 (07:17→17:20)
[2021-06-26] MEDS: Magnesium Chloride 64 MG Delay Rel.Tablet 128 MG PO (07:17)
[2021-06-26] MEDS: Pantoprazole Sodium 40 MG Tablet PO (07:17)
[2021-06-26] MEDS: Furosemide 40 MG/4 ML Vial IV ×2 (07:17→13:20)
[2021-06-26] MEDS: Paroxetine 20 MG Tablet PO (07:17)
[2021-06-26] MEDS: 0.9% Saline Lock 10 ML Syringe IV ×3 (07:21→13:27)
[2021-06-26] MEDS: Aspirin 81 MG TAB.CHEW 162 MG PO (08:52)
[2021-06-26] MEDS: Potassium Chloride Oral Tablet 20 MEQ PO (08:53)
[2021-06-26] MEDS: Amiodarone 200 MG Tablet PO (08:53)
[2021-06-26] MEDS: Divalproex Sodium 250 MG Tablet PO ×2 (08:53→17:20)
--- NOTE | 2021-06-26 16:15 | CASEMGMT ---
Social Work Have not received call back from . Contacted again. Spoke with and she stated his primary Medicare cut him, but he has his secondary insurance that is covering now - you all need to get on the same page because he is not discharging. VEENA explained the process for Medicare primary and secondary insurances in an SNF - being on day 25 currently and pt is indeed being discharged on 07/03. Reminded her of the appeal rights. would like to appeal and requested phone number again. Provided Curly's contact information via phone. to contact today to file appeal. SW will await outcome. PIERO Saldana
[2021-06-26] MEDS: Doxepin Hcl 25 MG Capsule PO (21:59)
[2021-06-26] MEDS: Atorvastatin Calcium 40 MG Tablet PO (21:59)
[2021-06-27] MEDS: 0.9% Saline Lock 10 ML Syringe IV ×3 (05:29→17:14)
[2021-06-27] MEDS: Furosemide 40 MG/4 ML Vial IV (05:29)
[2021-06-27] MEDS: Acetaminophen 500 MG Tablet 1000 MG PO ×3 (05:34→21:56)
[2021-06-27] MEDS: Polyethylene Glycol 3350 17 GM PACKET PO (05:34)
[2021-06-27] MEDS: Pantoprazole Sodium 40 MG Tablet PO (05:36)
[2021-06-27] MEDS: Paroxetine 20 MG Tablet PO (05:36)
[2021-06-27] MEDS: Senna/Docusate Sodium 1 Tablet PO ×2 (05:36→17:13)
[2021-06-27] MEDS: Tolterodine Tartrate 2 MG CAP.SA PO (05:36)
[2021-06-27] MEDS: APIXABAN 5 MG TABLET PO ×2 (05:36→17:13)
[2021-06-27 05:40] VITALS: BP 108/59; PULSE 87
[2021-06-27] MEDS: Metoprolol Tartrate 25 MG Tablet 37.5 MG PO ×3 (05:40→21:55)
[2021-06-27] MEDS: prednisoLONE eye drops (5 mL) 1 DROP OPTH.BTL 1 DRP LEFT EYE ×3 (05:45→21:54)
[2021-06-27] MEDS: Glycerin/Hypromellose/PEG400 15 ml Bottle 1 DRP RIGHT EYE ×2 (05:45→23:12)
[2021-06-27 06:18] LABS: Anion Gap 5 (5-15); BUN 42 mg/dL (7-18); BUN/Creat Ratio 26.9 RATIO (10-20); Calcium,Total 8.6 mg/dL (8.5-10.1); Chloride 106 mmol/L (98-107); Creatinine, Serum 1.56 mg/dL (0.70-1.30); EST Glomerular Filtration Rate 46 mL/min (>60); Est Glom Filt Rate - Afr Amer 56 mL/min (>60); Estimated Creatinine Clearance 42.91 ml/min; Glucose 120 mg/dL (74-106); Potassium 3.7 mmol/L (3.5-5.1); Sodium Level 143 mmol/L (136-145)
[2021-06-27] MEDS: Aspirin 81 MG TAB.CHEW 162 MG PO (08:16)
[2021-06-27] MEDS: Potassium Chloride Oral Tablet 20 MEQ PO (08:16)
[2021-06-27] MEDS: Divalproex Sodium 250 MG Tablet PO ×2 (08:16→17:13)
[2021-06-27] MEDS: Magnesium Chloride 64 MG Delay Rel.Tablet 128 MG PO (08:16)
[2021-06-27 09:21] VITALS: BP 95/65; PULSE 72
[2021-06-27 14:37] VITALS: BP 118/77; PULSE 91
[2021-06-27 16:00] VITALS: BP 129/62; PULSE 80; RESP 16; TEMP 35.6; O2SAT 98
--- NOTE | 2021-06-27 18:02 | NURSING ---
R' AND , JB NOTIFIED OF STAFF MEMBER AND R' TESTING POSITIVE FOR COVID.
[2021-06-27] MEDS: Glycerin/Hypromellose/PEG400 15 ml Bottle 1 DRP EACH EYE (21:54)
[2021-06-27 21:55] VITALS: BP 117/77; PULSE 76
[2021-06-27] MEDS: Atorvastatin Calcium 40 MG Tablet PO (21:55)
[2021-06-27] MEDS: Doxepin Hcl 25 MG Capsule PO (21:56)
[2021-06-27 23:29] VITALS: PULSE 75; RESP 16; O2SAT 97
[2021-06-28 05:54] VITALS: BP 129/79; PULSE 86
[2021-06-28] MEDS: prednisoLONE eye drops (5 mL) 1 DROP OPTH.BTL 1 DRP LEFT EYE ×3 (06:00→21:06)
[2021-06-28] MEDS: Glycerin/Hypromellose/PEG400 15 ml Bottle 1 DRP RIGHT EYE ×2 (06:02→21:06)
[2021-06-28] MEDS: Paroxetine 20 MG Tablet PO (06:02)
[2021-06-28 06:03] VITALS: PULSE 86
[2021-06-28] MEDS: Metoprolol Tartrate 25 MG Tablet 37.5 MG PO ×3 (06:03→21:10)
[2021-06-28] MEDS: Pantoprazole Sodium 40 MG Tablet PO (06:04)
[2021-06-28] MEDS: Senna/Docusate Sodium 1 Tablet PO (06:04)
[2021-06-28] MEDS: Acetaminophen 500 MG Tablet 1000 MG PO ×3 (06:04→21:08)
[2021-06-28] MEDS: Furosemide 40 MG Tablet PO (06:04)
[2021-06-28] MEDS: Tolterodine Tartrate 2 MG CAP.SA PO (06:04)
[2021-06-28] MEDS: APIXABAN 5 MG TABLET PO ×2 (06:04→17:19)
[2021-06-28] MEDS: Polyethylene Glycol 3350 17 GM PACKET PO (06:05)
[2021-06-28 07:40] LABS: Anion Gap 3 (5-15); BUN 41 mg/dL (7-18); BUN/Creat Ratio 26.6 RATIO (10-20); Calcium,Total 8.6 mg/dL (8.5-10.1); Chloride 107 mmol/L (98-107); Creatinine, Serum 1.54 mg/dL (0.70-1.30); EST Glomerular Filtration Rate 47 mL/min (>60); Est Glom Filt Rate - Afr Amer 57 mL/min (>60); Estimated Creatinine Clearance 43.46 ml/min; Glucose 109 mg/dL (74-106); Potassium 4.1 mmol/L (3.5-5.1); Sodium Level 142 mmol/L (136-145)
[2021-06-28] MEDS: Aspirin 81 MG TAB.CHEW 162 MG PO (08:15)
[2021-06-28] MEDS: Amiodarone 200 MG Tablet PO (08:16)
[2021-06-28] MEDS: Potassium Chloride Oral Tablet 20 MEQ PO (08:17)
[2021-06-28] MEDS: Divalproex Sodium 250 MG Tablet PO ×2 (08:17→17:19)
[2021-06-28] MEDS: Magnesium Chloride 64 MG Delay Rel.Tablet 128 MG PO (08:18)
[2021-06-28 14:05] VITALS: BP 125/59; PULSE 103; RESP 16; TEMP 36.7; O2SAT 95
[2021-06-28 14:06] VITALS: BP 125/59; PULSE 103
--- NOTE | 2021-06-28 14:29 | NURSING ---
message left with PRABHU Robbins regarding wanting called by Dr Pradhan regarding discharge date, wants it changed to July 10 instead of July 02.
--- NOTE | 2021-06-28 15:02 | NURSING ---
client care representative from [facility] called regarding new appeal for pt. Case # [id number]. message left with ER social director, she returned call and sent papers to her via tube system.
[2021-06-28 21:10] VITALS: BP 121/79; PULSE 77
[2021-06-28] MEDS: Doxepin Hcl 25 MG Capsule PO (21:10)
[2021-06-28] MEDS: Atorvastatin Calcium 40 MG Tablet PO (21:11)
[2021-06-29] MEDS: Glycerin/Hypromellose/PEG400 15 ml Bottle 1 DRP RIGHT EYE ×2 (05:52→23:12)
[2021-06-29] MEDS: prednisoLONE eye drops (5 mL) 1 DROP OPTH.BTL 1 DRP LEFT EYE ×3 (05:52→23:12)
[2021-06-29] MEDS: Senna/Docusate Sodium 1 Tablet PO ×2 (05:53→17:26)
[2021-06-29 05:54] VITALS: BP 109/68; PULSE 84
[2021-06-29] MEDS: Pantoprazole Sodium 40 MG Tablet PO (05:54)
[2021-06-29] MEDS: APIXABAN 5 MG TABLET PO ×2 (05:54→17:26)
[2021-06-29] MEDS: Furosemide 40 MG Tablet PO (05:54)
[2021-06-29] MEDS: Paroxetine 20 MG Tablet PO (05:54)
[2021-06-29] MEDS: Acetaminophen 500 MG Tablet 1000 MG PO ×3 (05:54→23:20)
[2021-06-29] MEDS: Tolterodine Tartrate 2 MG CAP.SA PO (05:54)
[2021-06-29] MEDS: Metoprolol Tartrate 25 MG Tablet 37.5 MG PO ×3 (05:54→23:18)
[2021-06-29] MEDS: Amiodarone 200 MG Tablet PO (08:21)
[2021-06-29] MEDS: Potassium Chloride Oral Tablet 20 MEQ PO (08:21)
[2021-06-29] MEDS: Magnesium Chloride 64 MG Delay Rel.Tablet 128 MG PO (08:21)
[2021-06-29] MEDS: Aspirin 81 MG TAB.CHEW 162 MG PO (08:21)
[2021-06-29] MEDS: Divalproex Sodium 250 MG Tablet PO ×2 (08:22→17:26)
[2021-06-29 08:59] VITALS: PULSE 98; RESP 18; O2SAT 92
[2021-06-29 13:46] VITALS: BP 136/87; PULSE 69
[2021-06-29 13:50] VITALS: BP 136/87; PULSE 98; RESP 16; TEMP 36.7; O2SAT 99
[2021-06-29 23:18] VITALS: BP 130/84; PULSE 72
[2021-06-29] MEDS: Atorvastatin Calcium 40 MG Tablet PO (23:19)
[2021-06-29] MEDS: Doxepin Hcl 25 MG Capsule PO (23:20)
[2021-06-30] MEDS: prednisoLONE eye drops (5 mL) 1 DROP OPTH.BTL 1 DRP LEFT EYE ×3 (05:53→23:04)
[2021-06-30] MEDS: Polyethylene Glycol 3350 17 GM PACKET PO (05:53)
[2021-06-30] MEDS: Glycerin/Hypromellose/PEG400 15 ml Bottle 1 DRP RIGHT EYE ×2 (05:53→23:04)
[2021-06-30] MEDS: Tolterodine Tartrate 2 MG CAP.SA PO (05:54)
[2021-06-30] MEDS: Pantoprazole Sodium 40 MG Tablet PO (05:54)
[2021-06-30] MEDS: Acetaminophen 500 MG Tablet 1000 MG PO ×3 (05:54→23:06)
[2021-06-30] MEDS: Furosemide 40 MG Tablet PO (05:54)
[2021-06-30] MEDS: Paroxetine 20 MG Tablet PO (05:54)
[2021-06-30] MEDS: APIXABAN 5 MG TABLET PO ×2 (05:54→16:48)
[2021-06-30] MEDS: Senna/Docusate Sodium 1 Tablet PO ×2 (05:55→16:26)
[2021-06-30 06:00] VITALS: BP 131/85; PULSE 98
[2021-06-30] MEDS: Metoprolol Tartrate 25 MG Tablet 37.5 MG PO ×3 (06:00→23:05)
[2021-06-30] MEDS: Potassium Chloride Oral Tablet 20 MEQ PO (07:45)
[2021-06-30] MEDS: Magnesium Chloride 64 MG Delay Rel.Tablet 128 MG PO (07:46)
[2021-06-30] MEDS: Divalproex Sodium 250 MG Tablet PO ×2 (07:46→16:26)
[2021-06-30] MEDS: Aspirin 81 MG TAB.CHEW 162 MG PO (07:47)
[2021-06-30] MEDS: Amiodarone 200 MG Tablet PO (07:47)
[2021-06-30 13:33] VITALS: BP 113/78; PULSE 94
--- NOTE | 2021-06-30 14:15 | CASEMGMT ---
Social Work Received call from Curly that pt lost appeal. Contacted to confirm she received notification and DC remains 07/03. still upset and unsure how he can be cared for at home. Continued to recommend SNF under BARTOL[facility]. confident pt will not qualify for [facility] even though she qualified for [facility]. VEENA sent email to inquire about status of BARTOLOME mikala to ROBERTH. appreciative. will contact her son to see if he can transport pt home and notify SW. SW to continue to follow. Plan remains DC 07/03 [facility] PT/OT/SN Itzel Wagner, LUGGAGE REPAIRER STROBOROMA OPERATOR
[2021-06-30 15:14] VITALS: BP 103/61; PULSE 71; RESP 16; TEMP 36.6; O2SAT 95
--- NOTE | 2021-06-30 19:18 | PN.TCU_ITS ---
Subjective Subjective Resident seen, examined for regulatory visit. In the interim, he had edema of legs, and increased weight. He was treated with Lasix 40mg iv twice daily with improvement, he is now on Lasix 40mg po daily, and he is wearing his compression stockings. He let me know the iv Lasix dried him out too much. He has no new problems, concerns, issues, complaints, he is looking forward to discharge in 3 days. Objective Data Objective Data Vital Signs: Vital Signs Temp Pulse Resp BP Pulse Ox 97.8 F 71 16 103/61 95 06/30/21 15:14 06/30/21 15:14 06/30/21 15:14 06/30/21 15:14 06/30/21 15:14 Oxygen Delivery Method Room Air Weight: 123.831 kg Body Mass Index (BMI) 36.2 Intake & Output: Intake and Output for Last 24 Hours 06/28/21 06/29/21 06/30/21 23:59 23:59 23:59 Intake Total 1608 / 1608 940 / 1060 720 / 720 Output Total 625 / 625 775 / 775 Balance 983 / 983 165 / 285 720 / 720 Lab / Micro Data Result Diagrams: 06/24/21 05:21 06/28/21 06:30 Micro: Microbiology 06/30/21 11:51 Nasal Secretion SARS-CoV-2 Antigen (Rapid) - Final 06/27/21 14:43 Nasal Secretion SARS-CoV-2 Antigen (Rapid) - Final 06/09/21 06:25 Nasal Secretion SARS-CoV-2 Antigen (Rapid) - Final 06/04/21 13:25 Nasal Secretion SARS-CoV-2 Antigen (Rapid) - Final Physical Exam Const alert General Appearance: cooperative HEENT normocephalic Eyes PERRL and EOMs intact bilaterally Neck supple, no JVD and no carotid bruits Chest Chest Narrative: Sternal incision clean, dry, intact. Resp normal respiratory effort, normal air movement and clear to auscultation bilaterally Cardio regular rate and regular rhythm GI normal to inspection, nondistended, normoactive bowel sounds, non-tender and non-distended Extremity normal capillary refill Extremity Narrative: Bilateral lower extremity compression stockings. General Extremity: Negative for edema Skin no rashes or lesions noted General Skin Exam: no breakdown Psych affect normal Appearance: appropriate Assessment & Plan Assessment/Plan (1) Debility: (2) History of coronary artery bypass graft x 3: (3) CAD (coronary artery disease): (4) Atrial fibrillation: (5) Brantley esophagus: (6) Depression: (7) Overactive bladder: (8) Hyperlipidemia: (9) Mood disorder: (10) Chronic kidney disease, stage 3a: PLAN: 75 year old male with below past medical history hospitalized for multivessel coronary artery disease, underwent CABG x 3, left atrial appendage, MAZE procedure 05/27/2021, admitted to TCU with debility, here for rehabilitation, strengthening, prior to discharge home with . * Debility - PT/OT. * Cognition - ST. * Pain - Tylenol 1000mg tid, Tramadol 50-100mg q6h prn, Lidoderm patch 1 patch td daily prn. * Bowel - Miralax 17gm daily, senna/colace 1 tablet bid, Dulcolax 10mg pr daily prn. * Adult immunization - Administer pneumonia vaccine, flu vaccine, covid19 vaccine. * DVT prophylaxis - Not necessary, on Eliquis. * Shortness of breath - Albuterol 2.5mg q2h prn. * Atrial fibrillation - Metoprolol 37.5mg q8h, Amiodarone 200mg daily, Eliquis 5mg bid. * Coronary artery disease status post CABG x 3, Metoprolol 37.5mg q8h, Aspirin 162mg daily. * Hyperlipidemia - Atorvastatin 40mg qhs. * Mood disorder - Depakote 250mg bidcm, stable chronic mcfp use, GDR not recommended. * Insomnia - Doxepin 25mg qhs. * Edema - Lasix 40mg daily, compression stockings. * Hypokalemia - KCL 20meq daily. * Hypomagnesemia - Magnesium 128mg daily. * GERD - Pantoprazole 40mg daily. * Depression - Paxil 20mg daily, stable chronic mcfp use, GDR not recommended. * Dry eye - Artificial tears 1 gtt ou bid. * Eye inflammation - Prednisolone 1gtt ou tid. * Overactive bladder - Tolterodine 2mg daily. * Cough - Robitussin DM 10ml q6h prn. * Rash - Hytone topical bid prn. Capacity Capacity Assessment Tool Can the patient make a choice & communicate that choice?: Yes Can the patient understand benefits, risks and alternatives?: Yes Can the patient make a logical, rational choice?: Yes Is the choice the patient makes consistent w/ their values?: Yes Is there an impending, emergent risk to the patient?: No Does the patient have an Advance Directive?: Yes Is there a Surrogate Available?: Yes i.e. HCPOA: Yes i.e. close relative (spouse, child, parent, sibling)?: Yes
[2021-06-30 20:21] VITALS: PULSE 89; RESP 18; O2SAT 96
[2021-06-30 23:05] VITALS: BP 150/87; PULSE 89
[2021-06-30] MEDS: Doxepin Hcl 25 MG Capsule PO (23:06)
[2021-06-30] MEDS: Atorvastatin Calcium 40 MG Tablet PO (23:07)
[2021-07-01 05:56] LABS: Absolute Lymphocyte Count 1.03 X10^3/uL (0.83-4.51); Absolute Neutrophil Count 3.9 X10^3/uL (2.0-7.7); Basophil# 0.07 X10^3/uL; Basophil% 1.2 % (0-1); Eosinophil# 0.24 X10^3/uL; Eosinophils% 4.1 % (0-5); Hemoglobin 10.3 g/dL (13.0-16.5); Lymphocyte # 1.03 X10^3/ul (0.83-4.51); Lymphocyte % 17.5 % (19-41); Mean Corp Hgb Conc 30.3 g/dL (32-36); Mean Corpuscular Hgb 29.1 pg (27.0-32.0); Mean Platelet Vol. 9.3 fl (6.2-12.0); Monocyte# 0.63 X10^3/uL; Monocyte% 10.7 % (0-10); NRBC Flagged by Analyzer 0 % (0-5); Neutrophil # 3.86 X10^3/uL (2.7-7.7); Neutrophil % 65.3 % (47-70); Platelet Count 192 K/mm3 (150-450); RBC Distribution Width CV 14.6 % (11.6-14.6); RBC Distribution Width SD 51.6 fl (35.1-43.9); Red Blood Count 3.54 M/mm3 (4.6-6.2); White Blood Count 5.9 K/mm3 (4.4-11.0)
[2021-07-01 06:24] LABS: Anion Gap 4 (5-15); BUN 39 mg/dL (7-18); BUN/Creat Ratio 26.2 RATIO (10-20); Calcium,Total 8.6 mg/dL (8.5-10.1); Chloride 108 mmol/L (98-107); Creatinine, Serum 1.49 mg/dL (0.70-1.30); EST Glomerular Filtration Rate 49 mL/min (>60); Est Glom Filt Rate - Afr Amer 59 mL/min (>60); Estimated Creatinine Clearance 44.92 ml/min; Glucose 106 mg/dL (74-106); Potassium 4.3 mmol/L (3.5-5.1); Sodium Level 141 mmol/L (136-145)
[2021-07-01] MEDS: Glycerin/Hypromellose/PEG400 15 ml Bottle 1 DRP RIGHT EYE ×2 (06:24→22:15)
[2021-07-01] MEDS: prednisoLONE eye drops (5 mL) 1 DROP OPTH.BTL 1 DRP LEFT EYE ×3 (06:24→22:15)
[2021-07-01] MEDS: Acetaminophen 500 MG Tablet 1000 MG PO ×3 (06:26→22:16)
[2021-07-01] MEDS: Tolterodine Tartrate 2 MG CAP.SA PO (06:27)
[2021-07-01] MEDS: APIXABAN 5 MG TABLET PO ×2 (06:27→17:00)
[2021-07-01] MEDS: Pantoprazole Sodium 40 MG Tablet PO (06:27)
[2021-07-01] MEDS: Furosemide 40 MG Tablet PO (06:27)
[2021-07-01 06:28] VITALS: BP 140/84; PULSE 93
[2021-07-01] MEDS: Paroxetine 20 MG Tablet PO (06:28)
[2021-07-01] MEDS: Metoprolol Tartrate 25 MG Tablet 37.5 MG PO ×3 (06:28→22:16)
[2021-07-01] MEDS: Aspirin 81 MG TAB.CHEW 162 MG PO (08:03)
[2021-07-01] MEDS: Magnesium Chloride 64 MG Delay Rel.Tablet 128 MG PO (08:04)
[2021-07-01] MEDS: Potassium Chloride Oral Tablet 20 MEQ PO (08:04)
[2021-07-01] MEDS: Divalproex Sodium 250 MG Tablet PO ×2 (08:04→17:02)
[2021-07-01] MEDS: Amiodarone 200 MG Tablet PO (08:04)
[2021-07-01 14:14] VITALS: PULSE 84
--- NOTE | 2021-07-01 14:38 | CHAPLAIN ---
Type of Pastoral Visit ___ Initial Visit _x__ Follow-up Visit ___ On-call Visit ___ General Patient Visit ___ Spiritual Assessment ___ Family Conference ___ Bereavement ___ Rapid Response ___ Code Blue ___ Other (describe below) Pastoral Care Referral From _x__ Patient ___ Family ___ Nurse ___ Physician ___ Incinerator Plant Supervisor ___ Scalemaker ___ Other (describe below) Sacrament/Intervention _x__ Active listening ___ Anointing ___ Presybeterian ___ Bereavement ___ Communion ___ Gale exploration ___ _x__ Life review _x__ Prayer ___ Reconciliation ___ Sacrament of Sick _x__ Supportive presence ___ Wedding ___ Other (describe below) Pastoral Comments patient expresses grief over of a life long friend who unexpectedly a week ago; pt also recounts how busy his family is with school and graduations so they aren't able to help much right now; pt concern continues for his who needs extra care too; pt will be going home to see how it goes on ; pt open to prayer support and conversation to express himself
[2021-07-01 16:00] VITALS: BP 116/69; PULSE 95; RESP 14; TEMP 36.8; O2SAT 93
--- NOTE | 2021-07-01 21:45 | NURSING ---
Pt home zip up compression stockings removed before bed.
[2021-07-01] MEDS: Doxepin Hcl 25 MG Capsule PO (22:15)
[2021-07-01 22:16] VITALS: BP 121/64; PULSE 73
[2021-07-01] MEDS: Atorvastatin Calcium 40 MG Tablet PO (22:17)
[2021-07-02] MEDS: Glycerin/Hypromellose/PEG400 15 ml Bottle 1 DRP RIGHT EYE ×2 (05:46→20:28)
[2021-07-02] MEDS: prednisoLONE eye drops (5 mL) 1 DROP OPTH.BTL 1 DRP LEFT EYE ×3 (05:46→20:29)
[2021-07-02] MEDS: Acetaminophen 500 MG Tablet 1000 MG PO ×3 (05:46→20:32)
[2021-07-02 05:47] VITALS: BP 121/71; PULSE 78
[2021-07-02] MEDS: Tolterodine Tartrate 2 MG CAP.SA PO (05:47)
[2021-07-02] MEDS: Furosemide 40 MG Tablet PO (05:47)
[2021-07-02] MEDS: Paroxetine 20 MG Tablet PO (05:47)
[2021-07-02] MEDS: APIXABAN 5 MG TABLET PO ×2 (05:47→17:35)
[2021-07-02] MEDS: Pantoprazole Sodium 40 MG Tablet PO (05:47)
[2021-07-02] MEDS: Metoprolol Tartrate 25 MG Tablet 37.5 MG PO ×3 (05:47→20:31)
[2021-07-02] MEDS: Senna/Docusate Sodium 1 Tablet PO (05:47)
[2021-07-02] MEDS: Aspirin 81 MG TAB.CHEW 162 MG PO (09:38)
[2021-07-02] MEDS: Amiodarone 200 MG Tablet PO (09:38)
[2021-07-02] MEDS: Divalproex Sodium 250 MG Tablet PO ×2 (09:38→17:36)
[2021-07-02] MEDS: Potassium Chloride Oral Tablet 20 MEQ PO (09:39)
[2021-07-02] MEDS: Magnesium Chloride 64 MG Delay Rel.Tablet 128 MG PO (09:39)
--- NOTE | 2021-07-02 14:37 | CASEMGMT ---
Addendum entered by Itzel Wagner 07/03/21 09:39: Late entry: Spoke with son about transport home from sleep study. Son prefers not to transport if the van can take him. Spoke with RN and pt has PCP appt for day of DC 07/03 at 3 pm, for PCP to sign/follow [facility] orders. Pt can reschedule PCP appt, but PCP is out of the office until 07/09. Spoke with son and pt on preference - both agreed to keep PCP appt for DC 07/03, son to pickling tank operator at 4 pm after appt to DC home, and can schedule sleep study at a later date. Updated nursing and sleep lab. Sleep lab to contact pt to schedule. Original Note: Social Work Received call from sleep lab stating there is an existing order for a new sleep study for pt. Pt is being discharged 07/03 and they have a bed available and insurance approved for pt to receive study. Spoke with pt and and they both agreed to study. Pt reports to using bipap at home. Left message with son to see if he can pickling tank operator pt from sleep lab at 6 am 07/04. If not, SW proactively contact [facility] Van and scheduled 6 am DC home. Notified nursing and sleep lab. PIERO Saldana
[2021-07-02 15:37] VITALS: BP 155/96; PULSE 90; RESP 19; TEMP 36.3; O2SAT 98
[2021-07-02 15:40] VITALS: PULSE 90
[2021-07-02 20:26] VITALS: BP 132/85; PULSE 87
[2021-07-02] MEDS: Atorvastatin Calcium 40 MG Tablet PO (20:30)
[2021-07-02 20:31] VITALS: PULSE 86
[2021-07-02] MEDS: Doxepin Hcl 25 MG Capsule PO (20:32)
[2021-07-02 20:41] VITALS: PULSE 86; RESP 16; O2SAT 97
[2021-07-03] MEDS: Paroxetine 20 MG Tablet PO (06:50)
[2021-07-03] MEDS: APIXABAN 5 MG TABLET PO (06:50)
[2021-07-03 06:51] VITALS: BP 110/69; PULSE 77
[2021-07-03] MEDS: Acetaminophen 500 MG Tablet 1000 MG PO ×2 (06:51→13:03)
[2021-07-03] MEDS: Metoprolol Tartrate 25 MG Tablet 37.5 MG PO ×2 (06:51→13:04)
[2021-07-03] MEDS: Furosemide 40 MG Tablet PO (06:52)
[2021-07-03] MEDS: Pantoprazole Sodium 40 MG Tablet PO (06:52)
[2021-07-03] MEDS: Glycerin/Hypromellose/PEG400 15 ml Bottle 1 DRP RIGHT EYE (06:53)
[2021-07-03] MEDS: prednisoLONE eye drops (5 mL) 1 DROP OPTH.BTL 1 DRP LEFT EYE ×2 (06:53→13:03)
[2021-07-03] MEDS: Tolterodine Tartrate 2 MG CAP.SA PO (06:56)
[2021-07-03] MEDS: Aspirin 81 MG TAB.CHEW 162 MG PO (08:48)
[2021-07-03] MEDS: Magnesium Chloride 64 MG Delay Rel.Tablet 128 MG PO (08:48)
[2021-07-03] MEDS: Potassium Chloride Oral Tablet 20 MEQ PO (08:48)
[2021-07-03] MEDS: Amiodarone 200 MG Tablet PO (08:48)
[2021-07-03] MEDS: Divalproex Sodium 250 MG Tablet PO (08:48)
[2021-07-03 09:34] VITALS: PULSE 88; RESP 14; O2SAT 96
--- NOTE | 2021-07-03 12:34 | NURSING ---
Bilateral zip up compression stockings applied per pt request instead of this morning, patient to d/c at 1430 with son to go up to Lorne's office at 1500 before heading home.
[2021-07-03 13:04] VITALS: PULSE 86
--- NOTE | 2021-07-03 15:07 | NURSING ---
Patient son was alerted staff he would be here by 1430 for discharge teaching, patient's son arrived at 1455, escorted patient to wheelchair and allowed for son to take up to Dr. Pradhan's Office. Will give discharge teaching once back, belongings all gathered and awaiting to be removed from facility.
--- NOTE | 2021-07-04 10:39 | CASEMGMT ---
Social Work Received patient's Medicaid pending number - #[id number]. Notified ROBERTH Tiwari CM that pt discharged home and requesting referral to [facility]. PIERO SaldanaW
== END 2021-07-03 16:00 | disposition home health service (06) | DRG 950 ==
PROVIDERS: Admitting Provider Family Medicine Geriatric Medicine; PCP Family Medicine Geriatric Medicine; Visit Provider Family Medicine Geriatric Medicine
DX: Z48.812 Encounter for surgical aftercare following surgery on the circulatory system (principal); E78.5 Hyperlipidemia, unspecified; F39 Unspecified mood [affective] disorder; I48.91 Unspecified atrial fibrillation; N18.31 Chronic kidney disease, stage 3a; I12.9 Hypertensive chronic kidney disease with stage 1 through stage 4 chronic kidney disease, or unspecified chronic kidney disease; K22.70 Barrett's esophagus without dysplasia; I25.10 Atherosclerotic heart disease of native coronary artery without angina pectoris; K21.9 Gastro-esophageal reflux disease without esophagitis; G47.33 Obstructive sleep apnea (adult) (pediatric); F32.A Depression, unspecified; N32.81 Overactive bladder; Z79.899 Other long term (current) drug therapy; Z79.01 Long term (current) use of anticoagulants; Z79.82 Long term (current) use of aspirin
CPT/HCPCS: 36415; 71046; 80048; 82962; 85025; 87426; 92523; 97110; 97116; 97162; 97166; 97530; 97535; 97802; A4216; J1940

== ENCOUNTER → 2021-06-10 | Outpatient (CLI) | payer MEDICARE, OTHER, SELFPAY ==
--- NOTE | 2021-06-10 11:03 | VDLE_ITS ---
Reason For Study: swelling Procedure LEFT This is a venous duplex using B-mode, color GSV is normal. flow and spectral Doppler. CFV is compressible, spontaneous, phasic, Exam performed portable in patient room. competent, and demonstrates normal The exam was abbreviated due to the COVID 19 augmentation. protocol. FV is compressible, spontaneous, phasic, The exam was diagnostic. competent and demonstrates normal A preliminary report was called and/or faxed augmentation. to the pt's nurse. POP V is compressible, spontaneous, phasic, competent and demonstrates normal augmentation. T/P Trunk is compressible. PTV is compressible. LT PerV is compressible. VL/Venous Duplex US, Unilateral Interpretation Summary Deep veins of the left lower extremity are patent and compressible segmentally. There is no evidence of left lower extremity deep vein thrombosis. Valvular competence appears intac t within the proximal deep venous system on the left . The left great saphenous vein appears patent a nd compressible segmentally. Ordering Physician: Wilbert Pradhan Performed By: Felice Maza RVT
== END | disposition home or self-care (01) ==
LOC: CVS 10:30
PROVIDERS: PCP Family Medicine Geriatric Medicine; Referring Provider Family Medicine Geriatric Medicine; Visit Provider Family Medicine Geriatric Medicine
DX: R22.42 Localized swelling, mass and lump, left lower limb (principal)
CPT/HCPCS: 93971

== ENCOUNTER → 2021-07-31 | Outpatient (CLI) | payer MEDICARE, OTHER, SELFPAY ==
[2021-07-31 16:18] LABS: Absolute Lymphocyte Count 1.42 X10^3/uL (0.83-4.51); Absolute Neutrophil Count 5.5 X10^3/uL (2.0-7.7); Basophil# 0.05 X10^3/uL; Basophil% 0.6 % (0-1); Eosinophil# 0.19 X10^3/uL; Eosinophils% 2.4 % (0-5); Hematocrit 36.9 % (40-54); Hemoglobin 10.5 g/dL (13.0-16.5); Lymphocyte # 1.42 X10^3/ul (0.83-4.51); Lymphocyte % 17.8 % (19-41); Mean Corp Hgb Conc 28.5 g/dL (32-36); Mean Corpuscular Hgb 25.7 pg (27.0-32.0); Mean Corpuscular Volume 90.2 fL (80-94); Monocyte# 0.75 X10^3/uL; Monocyte% 9.4 % (0-10); NRBC Flagged by Analyzer 0 % (0-5); Neutrophil # 5.53 X10^3/uL (2.7-7.7); Neutrophil % 69.4 % (47-70); Platelet Count 212 K/mm3 (150-450); RBC Distribution Width SD 49.6 fl (35.1-43.9); Red Blood Count 4.09 M/mm3 (4.6-6.2)
[2021-07-31 16:41] LABS: AST(SGOT) 41 U/L (15-37); Alanine Aminotransfer ALT/SGPT 56 U/L (16-61); Albumin, Serum 3.4 g/dL (3.2-5.0); Alkaline Phosphatase 117 U/L (45-117); Anion Gap 6 (5-15); BUN 40 mg/dL (7-18); BUN/Creat Ratio 20.5 RATIO (10-20); Chloride 108 mmol/L (98-107); Creatinine, Serum 1.95 mg/dL (0.70-1.30); EST Glomerular Filtration Rate 36 mL/min (>60); Est Glom Filt Rate - Afr Amer 43 mL/min (>60); Globulin 3.4 g/dL (2.2-4.2); Glucose 128 mg/dL (74-106); Potassium 4.7 mmol/L (3.5-5.1); Protein, Total 6.8 g/dL (6.4-8.2); Sodium Level 141 mmol/L (136-145); Thyroid Stim Hormone (TSH) 4.87 uIU/mL (0.358-3.74)
== END | disposition home or self-care (01) ==
LOC: POLAB3 12:49
PROVIDERS: PCP Family Medicine Geriatric Medicine; Visit Provider Family Medicine Geriatric Medicine
DX: E55.9 Vitamin D deficiency, unspecified (principal); R53.83 Other fatigue
CPT/HCPCS: 36415; 80053; 82306; 84443; 85025

== ENCOUNTER → 2021-08-04 | Outpatient (CLI) | payer MEDICARE, OTHER, SELFPAY | END | disposition home or self-care (01) | LOC: SL 20:49 | PROVIDERS: PCP Family Medicine Geriatric Medicine; Referring Provider Nurse Practitioner Acute Care; Visit Provider Nurse Practitioner Acute Care | DX: G47.33 Obstructive sleep apnea (adult) (pediatric) (principal) | CPT/HCPCS: 95811 ==

== ENCOUNTER → 2021-08-15 | Outpatient (CLI) | payer MEDICARE, OTHER, SELFPAY ==
--- NOTE | 2021-08-15 11:40 | PCM.CR.ITP ---
Diagnosis - General Information Admitting Diagnosis: S/P CABG Secondary Diagnosis: I25.10, E66.1, E78.5, I10 Personal Learning Style:: Audio/Visual, Written Barriers to Learning: Hearing Impairment - Bilateral Hearing Aids, Vision Impairment Stage of change r/t lifestyle modifications:: Action Gave educational material for:: Treating Heart Disease, Emotions & Heart Disease, Stress Management & Relaxation, Sleep Disorders & Heart Disease, How The Heart Works, What it means to have Heart Disease, How Coronary Artery Disease is Diagnosed, Heart Procedures, What Heart Medications Do, Risk Factors & Modifications, Living an Active Life, Nutrition - Education/Goals Individual Counseling: Initial Assessment: High Blood Pressure, Overweight/Obesity, Hypertension Cardiac Rehabilitation Goals: 1. Maintain the individual as the primary focus of care. 2. To improve the patient's quality of life. 3. Identification of cardiac risk factors and provide cardiac risk factor management. 4. Enhance the psychosocial status of the patient. 5. Reconditioning enough to allow the patient to resume customary activities. 6. Control symptoms of cardiac disease Personal Goals: Initial Assessment: Improve management of stress and emotions, Improve energy level, Participate in home exercise program, Get back to work, or to resume activities faster, Improve knowledge of cardiac disease, Improve muscle strength and endurance, Improve diet and eating habits (eat healthier), Control risk factors (learn risk factor modification) Scale for measuring improvement of personal goals: Enter appropriate number in Comments. 2 = Unchanged. 3 = Slightly Better. 4 = Moderate Improvement. 5 = Met my Goal - Diagnosis & Disease Process Outcomes/Goals: Pt IDs own risk factors & lifestyle modifications by Session 10, Verbalizes symptoms of angina & response by session 3., Pt independently manages Plan/Interventions: Assist Pt to ID & engage in lifestyle modification to reduce CVD risk, Instruct on individual risk factors, Review symptoms of angina & emergency actions, Review secondary diagnosis & identify educational needs. - Safety Referral to Physical Therapy: No Referral to [facility] Case Management: No Fall Risk Assessed:: Yes Assistive Devices:: Cane - only on occasion Exercise - Initial Assessment - Visit Date of Eval: 08/15/21 Session #:: 0 - pre-cardiac rehab evaluation Mets: Pre-: >5 METS for 30 minutes by discharge - Physician Prescribed Exercise Modalities: Treadmill, Airdyne, NuStep, Lateral [place] Frequency: 3x/week for 12 weeks [36 sessions] Intensity: Resting heart rate plus 20 to 30 beats/ minute Current METSs:: 2.0 Target Heart Rate:: 93-108 Resting Blood Pressure: 132/76 EKG Type: Atrial Fibrillation/Atrial Flutter - Outcomes & Goals Goals:: Verbalizes understanding of THR, RPE & goal METS by session 6, Documents in home exercise log/reports 30 min aerobic 5 day/wk by DC, Demonstrates accurate pulse taking by DC - Intervention & Plan Exercise Program Goals: Instruct on personal THR & RPE, Instruct on MET level & personal MET goal, Show patient to take own pulse /validate performance until accurate, Instruct on home exercise - Physical Activity Home Exercise Physical Activity - Home Exercise: Safe Exercise, Warm-up, Self-monitoring, Cool-Down, Home Exercise > 30 min Daily, Sitting Time <3 hours/daily - Outcomes & Goals Outcomes/Goals: Demonstrates correct Warm-up/exercise Cool-Down (S3) if = 2.5 METs, Verbalizes symptoms of exercise intolerance by Session 3 (S3), Demonstrate safe equipment use (S3) & follows exercise prescrition (6) - Intervention & Plan Plan/Intervention: Instruct warm-up & cool-down if exercising at > 2 METs, Instruct on symptoms of exercise intolerance & actions to take, Instruct & monitor on saf, Assess intial functional capacity & safety risk Nutrition - Initial Assessment - Program Goals Nutrition Program Goals: LDL <100 optimal. 100 - 129 Near optimal. 130 - 159 Borderline High. 160 - 189 High. Total Cholesterol <200 desirable. 200 - 239 Borderline High. >/= 240 High. HDL < 40 Low >/=60 High. Triglycerides <150 desirable. <199 optimal. VlDL 5 - 40. HgbA1C <7%. BMI <25 Patient has diagnosis of Hyperlipidemia (ICD E78)?: Yes - Visit Date of Assessment:: 08/15/21 Session #:: 0 - pre-cardiac rehab - Cholesterol/Lipids Triglycerides (mg/dL): 63 Total Cholesterol (mg/dL): 112 LDL Cholesterol (mg/dL): 56 HDL Cholesterol (mg/dL): 43 Determine presence & major risk factors that modify LDL goal: Hypertension or hypertensive medication, Family history of premature CHD in Male < 55 years: female <65 yearsFa, Age men > 45 years; women >/= 55 years Outcomes/Goals: Pt IDs own risk factors & lifestyle modifications by Session 10, Verbalizes symptoms of angina & response by session 3., Pt independently manages - Diabetes (Other Core Measures) Diabetes Type: Not Applicable - Weight Mgt (Other Care) Not Applicable: No Height: 5 ft 10 in Weight:: 263 lb BMI: 37.7 Diagnosis Overweight/Obesity BMI> 30% ICD-10 E66: Yes Diagnosis High BMI/Morbid Obesity BMI> 35% ICD-10 Z68: Yes Outcomes/Goals: Pt sets, maintains & shows weight loss goal & trend during rehab Intervention/Plan: Instruct on ideal BMI & set weight loss goal w/patient, Assist pt to ID & incorporate diet changes for weight loss by S9, Refer to Structured Weight Loss program as appropriate, Encourage goal of using 250-300dcal per session for weight loss - Healthy Eating Habits Will attend diet classes:: Yes Outcomes/Goals:: Consume diet rich in vegs,fruits,whole grain/high fiber,fish,lean meat, Limit sat/trans fats,cholesterol & added salts & sugars Intervention/Plan:: Assess current eating habits - Education Gave educational materials for:: Healthy eating Nutrition - 30-Day Assessment Nutrition - 60-Day Assessment Nutrition - 90-Day Assessment Nutrition - Final Assessment Medical - Initial Assessment - Visit Date of Eval: 08/15/21 Session #:: 0 - pre-cardiac rehab evaluation - Medication Compliance Preventative Medication(s):: Aspirin, CHRISS inhibitor, Statin/lipid, Beta yulia, Eliquis H/O mental health issues: depression, anxiety, or addiction?: No Doesn?t believe in the benefits of treatment?: No Believes medications are unnecessary or harmful?: No Has a concern about medication side effects?: No Expresses concern over the cost of medications?: No Outcomes/Goals: Verbalizes medications,desired effect & common side effects @ DC, Pt self-reports following medication regimen, Keeps card in wallet w/medications listed by DC Interventions/plans: Instruct on medication effects & side effects, Review medication list w/patient every two weeks, Instruct importance of taking meds as ordered & assist problem solving - Tobacco Use Tobacco Use: Non-smoker - Hypertension Hypertension Diagnosis:: Hypertension ICD-10 I10 Resting Blood Pressure:: 132/76 [place] [employer] Hypertension Guidelines: [place] [employer] Hypertension Guidelines. Normal BP Less than 120/80. Elevated BP 120/80. Hypertension Stage 1: BP 130-139/80-89. Hypertesnion Stage 2: BP 140 or higher/90 or higher. Hypertension Crisis: BP higher than 180/120 Outcomes/Goals: Able to verbalize/achieve optimal blood pressure <130/80, Incorporates diet changes & exercise for blood pressure control by DC Interventions/plan: Instruct on optimal blood pressure, hypertension & medications, Instruct on effects of sodium, alcohol, stress, exercise &hypertension - Tobacco Cessation Referral Smoking Cessation Referral:: No Individual Education/Counseling:: No Education Schedule Given:: Yes Medical- 30-Day Assessment Medical- 60-Day Assessment Medical- 90-Day Assessment Medical - Final Assessment Psychosocial - Initial Assess - VIsit Date of Eval: 08/15/21 Session #:: 0 - pre-cardiac rehab evaluation Not Applicable: No History of previous Mental disease:: No History of Emotional Disorders: Depression - Psychosocial Test Tool Used:: Teetee Iraheta QOL Cardiac, PHQ-9 Questionnaire phq-9 Severity: Severity. 1-4 Minimal Depression. 5-9 Mild Depression. 10-14 Moderate Depression. 15-19 Moderately Sever Depression. 20-27 Severe Depression. Rule: - Referral to Behavioral Health PS - Interventions: Yes Attend Stress Management Classes, No Referral to Behavioral Health if PHQ-9 score >9:, No Referral to [facility], No Referral to Physician if PHQ-9 if score is 5-9: - Outcomes/Goals: See list Psychosocial Outcomes/Goals:: ID's personal stressors & 2 strategies to manage stress by discharge - Intervention/Plan: See List Interventions/Plan:: Assess stressors,coping strategies & signs of derpression on admission, Instruct/assist pt to develop coping & personal stress Mgt strategies, Instruct patient to recognize signs & symptoms of depression, Instruct patient to recog Psychosocial - 30-Day Assess Psychosocial - 60-Day Assess Psychosocial - 90-Day Assess Psychosocial - Final Assessmen Patient Health Questionnaire Initial Assessment 1. Little interest or pleasure in doing things: More than half the days 2. Feeling down, depressed, or hopeless: More than half the days 3. Trouble falling or staying asleep, or sleeping too much: More than half the days 4. Feeling tired or having little energy: More than half the days 5. Poor appetite or overeating: Several days 6. Feeling bad about yourself -- or that you are a failure or have let yourself or your family down: Several days 7. Trouble concentrating on things, such as reading the newspaper or watching television: Several days 8. Moving or speaking so slowly that other people could have noticed. Or the opposite - being so fidgety or restless that you have been moving around a lot more than usual: More than half the days 9. Thoughts that you would be better off , or of hurting yourself in some way: Not at all How difficult have these problems made it for you to do your work, take care of things at home, or get along with other people?: Somewhat difficult Total Score: 13 LILIANE-Q SV Test - Statements CAD is a disease of the arteries in the heart: False Examples of risk factors for heart disease: True Angina is chest pain or discomfort: I Don't Know The benefits of resistance training include: True Eating more meat and dairy products: False Anti-platelet medications such as aspirin are important: True The only effective way to manage stress: False An exercise warm-up slowly increases heart rate: True Prepared, processed foods usually have high sodium: True Depression is common after a heart attack: I Don't Know The statin medications lower cholesterol: I Don't Know To control blood pressure, lower the amount of sodium: True If someone gets chest discomfort during walking: False Transfats are partially hydrogenated vegetable oils: True Sleep apnea that is not treated increases the risk: False To control cholesterol, one should become a vegetarian: False Someone knows if he/she is exercising at the right level: I Don't Know Diabetes cannot be prevented with exercise & health eating: I Don't Know Stress is a large risk for heart attack: True A diet that can help lower blood pressure is rich in: True - Total Score Total Correct Responses: 15 Self-Efficacy Initial Assessment We would like to know how confident you are in doing certain activities. Please select your confidence level for:: Select your confidence level for the following using the scale 1-10 where 1 is not at all confident and 10 is totally confident. Your score is the average of all 6 responses. Fatigue: How confident are you that you can keep the fatigue caused by your disease from interfering with the things you want to do? Select Number: 3 Physical Discomfort or Pain: How confident are you that you can keep the physical discomfort or pain of your disease from interfering with the things you want to do? Select Number: 5 Emotional Distress: How confident are you that you can keep the emotional distress caused by your disease from interfering with the things you want to do? Select Number: 3 Other Symptoms or Health Problems: How confident are you that you can keep other symptoms or health problems from interfering with the things you want to do? Select Number: 4 Different Tasks and Activities: How confident are you that you can do the different tasks and activities needed to manage your health condition so as to reduce your need to see a doctor? Select Number: 4 Medication: How confident are you that you can do things other than just taking medication to reduce how much your illness affects your everyday life? Select Number: 5 Total Score:: 4 Nutrition Survey - Nutrition Survey Initial Have you lost >10 lbs over the past 2 months without trying?: No Are you following a special diet at home for diabetes, low fat, or low salt?: Yes Are you interested in meeting with a dietitian for help understanding your diet?: No Do you eat less than 3 meals a day?: Yes Do you eat fatty meats (tillman, sausage, ribs, etc), fried foods, desserts, large amounts of salad dressings, margarine, butter, or cheese most days?: No Do you have food allergies? [Enter types in comment field]: No Do you eat in restaurants more than 3 times a week?: No Do you season food with salt, seasoning salt, or garlic salt?: No Do you used canned, boxed, frozen meals, or soups, seasoning packets?: No Total Score:: 2
--- NOTE | 2021-08-15 11:51 | PCM.CR.HP2 ---
CR - History & Physical - General Arrival date:: 08/15/21 Arrival time:: 11:30 Date of Referral:: 08/06/21 Date of CR Evaluation:: 08/15/21 Referring Physician: Dr. Shola Norton Primary Diagnosis: S/P CABG - History of Present Cardiac Event Onset Date: Enter Onset Date of cardiac illnesses in Comment field below Coronary Artery Bypass Graft:: Yes - 05/27/2021 @ [facility] Heart Failure EF <35%:: Yes - EF 50% last ECHO on 05/20/2021 Type of Symptoms:: Weakness, falling, brought in to the hospital for stress test, heart cath and then sent to [facility]. Interventions with present event:: Sent to [facility] for CABG Were there any complications?: Very debilitated, fluid overload, Transitional Care stay post discharge - Sleep Disorder Evaluation Hx of Sleep Apnea: Yes Do you snore loudly (louder than talking or can be heard through closed doors)?: Yes Do you often feel tired/ fatigued/ sleepy during daytime?: Yes Has anyone observed you stop breathing during sleep?: No History of Hypertension (for STOP score): Yes - Diagnosed EDER, sleep apnea & has a home unit. STOP Results: Positive - Medications Home Medications: Ambulatory Orders Medication Instructions Recorded apixaban 5 mg tablet (Eliquis) 5 mg PO BID blood thinner 11/07/18 atorvastatin 40 mg tablet 40 mg PO QHS cholesterol 11/07/18 pantoprazole 40 mg tablet,delayed 40 mg PO DAILY gerd 11/07/18 release paroxetine HCl 20 mg tablet 20 mg PO DAILY depression 11/07/18 trospium 20 mg tablet 20 mg PO BID bladder 07/18/19 carboxymethylcellulose sodium 1 % 1 drp EACH EYE BID dry eyes 06/02/21 eye liquid gel drops prednisolone acetate 1 % eye 1 drp EACH EYE TID eye drops 06/02/21 drops,suspension amiodarone 200 mg tablet 200 mg PO DAILYCM 30 days #30 tabs 06/24/21 doxepin 25 mg capsule 25 mg PO QHS sleep 30 days #30 caps 06/24/21 acetaminophen 500 mg tablet 1,000 mg PO Q6H PRN 07/22/21 albuterol sulfate 2.5 mg inhalation Q2H PRN 07/22/21 aspirin 81 mg tablet,delayed 81 mg PO DAILY 07/22/21 release (Adult Low Dose Aspirin) bisacodyl 10 mg rectal suppository 10 mg KS DAILY PRN 07/22/21 cholecalciferol (vitamin D3) 50 50 mcg PO DAILY 07/22/21 mcg (2,000 unit) tablet cyanocobalamin (vitamin B-12) 1,000 mcg PO BID 07/22/21 1,000 mcg tablet divalproex 250 mg tablet,delayed 250 mg PO DAILY 07/22/21 release furosemide 20 mg tablet 20 mg PO DAILY 07/22/21 magnesium oxide 400 mg (241.3 mg 400 mg PO DAILY 07/22/21 magnesium) tablet metoprolol tartrate 25 mg tablet 25 mg PO Q8 07/22/21 polyethylene glycol 3350 17 gram 17 g PO DAILY 07/22/21 oral powder packet (Miralax) sennosides 8.6 mg-docusate sodium 1 tab-cap PO BID PRN 07/22/21 50 mg capsule (Senna Plus) - Allergies Allergies/Adverse Reactions: Allergies No Known Allergies Allergy (Verified 04/16/21 10:54) Advanced Directives - Advanced Directives Power of Juice Standardizer: Yes Living Will: Yes Advance Directives Information Provided: No Advance Directives on File: Yes - patient believes they are on his medical record DNR Order?:: Yes - MOLST See MOLST form: No Past Medical History - Covid-19 Screening Fever: No Unexplained muscle aches: No Current respiratory symptoms: Yes - History of COPD - dyspnea Upper respiratory infections symptoms: No Gastro-intestinal symptoms: Yes - Brantley's Esophgus Cbu-Gnjr-Hhijge symptoms: No Has tested positive for COVID-19 in last 30 days: No Date of testin08/15/21 - Patient fully vaccinated and Booster Had contact w/person w/symptoms or Covid-19 (+) last 14 days: No Has High Risk Exposures ID'd by Health dept/Inf Control team: No 65 years or older:: Yes Lives in Assisted Living facility:: No Has a chronic lung disease or moderate to severe asthma:: Yes Has a serious heart condition:: Yes Immunocompromised:: Yes Severely obese (Body Mass Index of 40 or higher):: No Diabetic:: No Has chronic kidney disease undergoing dialysis:: Yes Has liver disease:: No - Past Medical Illness Medical History: Past Medical History (Last Reviewed 06/02/21 @ 22:34 by Qiana Lion) Atherosclerosis of coronary artery of [place] heart without angina pectoris I25.10 Atrial fibrillation I48.91 onset 03/29/2016 when pt hospitalized for sepsis with Group A strep, Cellulitis RLE; DCCV 09/10/2020, 12/03/2020, 01/09/2021 in ER; 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 Rosalia Brizuela Depression F32.A Essential hypertension I10 GERD (gastroesophageal reflux disease) K21.9 History of left heart catheterization (LHC) Onset Date: ~05/20/21 Z98.890 LEFT MAIN: Mild luminal irregularities; LEFT ANTERIOR DESCENDING ARTERY: PROX LAD: Previously placed stent is patent, 99 % Stenosis; MID LAD: to distal area: hazy: 50 % Stenosis; DIAGONAL 1: Ostial - small to moderate caliber vessel: subtotally occluded and filling late and faintly; CIRCUMFLEX ARTERY: MID CIRC: hazy: 50 % Stenosis; RAMUS: proximal: 50 % Stenosis, small side branch vessel: proximal: 75 % stenosis; RIGHT CORONARY ARTERY: OSTIAL RCA: 75 % Stenosis; MID RCA: 25 - 50 % Stenosis; RT PDA: Proximal - 50 % Stenosis; COLLATERAL FLOW: Collateral flow from Right to Left; RECOMMENDATIONS: Surgery consult for coronary revascularization 05/20/21 History of septic shock Onset Date: 04/02/16 Z86.19 Sepsis with Group A strep, Cellulitis RLE Hyperlipidemia E78.5 Iron deficiency anemia D50.9 Obstructive sleep apnea G47.33 Sleep apnea G47.30 - Past Surgical History Surgical History: Past Surgical History (Last Updated 07/22/21 @ 08:58 by Marisol Gant) History of coronary artery bypass graft x 3 Onset Date: ~05/27/21 Z95.1 CABG x3- MOORE - LAD, SVG - Ramus, SVG - PDA; w/MAZE procedure and Left Atrial Appendage Clip clip-size #40 @ [facility] Dr. Posey 05/27/21 History of total left knee replacement Z96.652 History of total right knee replacement Z96.651 Stented coronary artery Onset Date: 04/14/07 Z95.5 3.5 X 16 LIZ to proximal LAD stenosis of 99%-->0% per Dr. Griselda Abreu, [facility] main 04/14/2007 - Family History Summary Family History: Family History (Last Reviewed 06/02/21 @ 21:[address] Wilbert Pradhan MD) Father Cancer Lung Mother Heart disease Brother Heart disease CVA (cerebral vascular accident) Brother Heart disease Brother Heart disease Social History - Smoking History Smoking Status: Never smoker Hx Tobacco Use: No Hx Smoking Exposure: No - Alcohol Use Alcohol Usage: No - Substance Abuse Hx Substance Use: No - Occupation Occupation (List type of work in comments):: Retired - Hobbies, Recreation, Social Activities Hobbies: Sports - Shooting, Antique tractors, Tractor Shows, None Recreational Activities: I am able to engage in a few activities - endurance lacking, legs get very weak walking distances Social Environment - Status Marital Status: - Current Living Arrangements Living Environment:: Spouse - Children How many children do you have?: 2 Do any of your children live nearby?: Yes - [place] & [place] - Safety Do you feel safe in your surroundings?: Yes - Assistance Do you need any assistance at home?: no Review of Systems - Review of Systems Hints: Right click = Denies ([place]). Left click = Reports ([place]) Review of Present Symptoms: Reports: Shortness of Breath with Exertion, Wound Healing, Dizziness/Lightheadedness - if gets up to quick for a few seconds., Fatigue, Heart Arrhythmia/Irregularities - Atrial Fibrillation/Atrial Flutter, Appetite - Normal, Appetite - Special Diet - Low Fat No Salt, Sleep - Normal. Denies: Shortness of Breath at Rest, Operative Discomfort, Angina, Sexual Changes - Pain Is Patient Pain Free?: Yes Pain Location: none, lower extremity - History of bilateral knee replacement Pain Level: 0/10 Risk Factor Assessment - Chief Complaint Chief Complaint: S/P CABG - Vital Signs Temperature: 98.7 F Respiratory Rate: 18 Pulse Ox: 95 Blood Pressure: 132/76 Nailbeds:: pink - Pulse Pulse Rate: 83 Pulse Rhythm: Regular - Hypertension Blood Pressure Sitting - Left Arm: 132/76 - Blood Cholesterol/Lipids Total Cholesterol (mg/dL) Goal = less than 200 mg/dL: 112 HDL Cholesterol (mg/dL) Goal = less than 40 mg/dL: 43 LDL Cholesterol (mg/dL) Goal = less than 70 mg/dL: 56 Triglycerides (mg/dL) Goal = less than 150 mg/dL: 63 - Obesity Height: 5 ft 10 in Weight:: 263 lb Weight in Pounds: 263.0 lbs Weight Source: Stated by Patient Body Mass Index (BMI): 37.7 Nutritional Referral for Obesity: Yes - Physical Inactivity Physical Inactivity: None - Risk Stratification Risk Guidelines: Lowest Risk: Risk Factor for Dyslipidemia, Risk Factor for Obesity, Moderate Risk: Risk Factor for Hypertension - 132/76, Risk Factor for Depression, Highest Risk: Risk Factor for Sedentary Lifestyle - Family History Family History: Family History (Last Reviewed 06/02/21 @ 21:[address] Wilbert Pradhan MD) Father Cancer Mother Heart disease Brother Heart disease CVA (cerebral vascular accident) Brother Heart disease Brother Heart disease Motivation - Motivation to Participate On a scale of 1 to 10, how prepared are you to commit to attending program?: 8 What do you see as barriers to successfully being able to complete the program?: no What do you see as the benefits of succesfully completing the program? In other words, what do you hope to get out of participating in the program?: get some strength & endurance back Are there issues you are dealing with that will interfere with completing the program?: no Do you have a spouse or signficant other, family or friends who will help support you to complete the program?: Yes; two children and .
[2021-08-15 12:02] VITALS: BP 132/76; BMI 37.7
[2021-08-15 12:19] VITALS: BP 132/76; PULSE 83; RESP 18; TEMP 37.1; O2SAT 95; BMI 37.7
== END | disposition home or self-care (01) ==
LOC: CR 11:32
PROVIDERS: PCP Family Medicine Geriatric Medicine; Visit Provider Internal Medicine Cardiovascular Disease
DX: I12.9 Hypertensive chronic kidney disease with stage 1 through stage 4 chronic kidney disease, or unspecified chronic kidney disease (principal); N18.30 Chronic kidney disease, stage 3 unspecified; E78.5 Hyperlipidemia, unspecified; K22.70 Barrett's esophagus without dysplasia; E66.9 Obesity, unspecified

== ENCOUNTER → 2021-09-01 | Outpatient (CLI) | payer MEDICARE, OTHER, SELFPAY ==
[2021-08-15 12:02] VITALS: BMI 37.7
== END | disposition home or self-care (01) ==
LOC: PSN 11:57
PROVIDERS: PCP Family Medicine Geriatric Medicine; Referring Provider Internal Medicine Cardiovascular Disease; Visit Provider Internal Medicine Cardiovascular Disease
DX: I48.91 Unspecified atrial fibrillation (principal)
CPT/HCPCS: 93225; 93226

== ENCOUNTER → 2021-09-03 | Outpatient (CLI) | payer MEDICARE, OTHER, SELFPAY ==
[2021-08-15 12:02] VITALS: BMI 37.7
[2021-09-03 18:46] LABS: M R Staph aureus DNA By PCR Negative (Negative); Probe Check PASS; Specimen Processing Control PASS; Staph aureus DNA By PCR POSITIVE (Negative)
== END | disposition home or self-care (01) ==
LOC: POLAB3 16:40 → LABSPEC 16:40
PROVIDERS: PCP Family Medicine Geriatric Medicine; Visit Provider Family Medicine Geriatric Medicine
DX: T07.XXXA Unspecified multiple injuries, initial encounter (principal); B95.62 Methicillin resistant Staphylococcus aureus infection as the cause of diseases classified elsewhere; S81.802A Unspecified open wound, left lower leg, initial encounter
CPT/HCPCS: 87070; 87205; 87640

== ENCOUNTER → 2021-09-03 | Outpatient (CLI) | payer MEDICARE, OTHER, SELFPAY ==
[2021-08-15 12:02] VITALS: BMI 37.7
== END | disposition home or self-care (01) ==
LOC: SL 20:58
PROVIDERS: PCP Family Medicine Geriatric Medicine; Visit Provider Nurse Practitioner Acute Care
DX: G47.31 Primary central sleep apnea (principal); S81.802A Unspecified open wound, left lower leg, initial encounter; T07.XXXA Unspecified multiple injuries, initial encounter; B95.62 Methicillin resistant Staphylococcus aureus infection as the cause of diseases classified elsewhere
CPT/HCPCS: 87070; 87077; 87186; 87205; 87640; 95811

== ENCOUNTER 2021-09-05 14:30 | Outpatient (RCR) | payer MEDICARE, OTHER, SELFPAY ==
[2021-08-15 12:02] VITALS: BMI 37.7
== END 2021-09-07 23:59 ==
LOC: CR 14:30
PROVIDERS: PCP Family Medicine Geriatric Medicine; Referring Provider Thoracic Surgery (Cardiothoracic Vascular Surgery); Visit Provider Internal Medicine Cardiovascular Disease
DX: I25.10 Atherosclerotic heart disease of native coronary artery without angina pectoris (principal); Z95.1 Presence of aortocoronary bypass graft
CPT/HCPCS: 93798

== ENCOUNTER 2021-09-24 14:40 | Outpatient (RCR) | payer MEDICARE, OTHER, SELFPAY ==
[2021-08-15 12:02] VITALS: BMI 37.7
[2021-09-17 08:31] VITALS: BMI 38.4
== END 2021-10-08 23:59 ==
LOC: NS 14:40
PROVIDERS: PCP Family Medicine Geriatric Medicine; Referring Provider Internal Medicine Cardiovascular Disease; Visit Provider Internal Medicine Cardiovascular Disease
DX: Z71.3 Dietary counseling and surveillance (principal); E66.9 Obesity, unspecified; Z68.35 Body mass index [BMI] 35.0-35.9, adult; I12.9 Hypertensive chronic kidney disease with stage 1 through stage 4 chronic kidney disease, or unspecified chronic kidney disease; N18.30 Chronic kidney disease, stage 3 unspecified; E78.5 Hyperlipidemia, unspecified; K22.70 Barrett's esophagus without dysplasia; K20.90 Esophagitis, unspecified without bleeding
CPT/HCPCS: 97802

== ENCOUNTER → 2021-09-25 | Outpatient (CLI) | payer MEDICARE, OTHER, SELFPAY ==
[2021-09-17 08:31] VITALS: BMI 38.4
--- NOTE | 2021-09-25 16:45 | RAD_ITS ---
EXAM: XR RIGHT RIBS AND AP CHEST, 3 OR MORE VIEWS CLINICAL INDICATION: PAIN TECHNIQUE: Frontal and oblique views of the right ribs and frontal view of the chest. This report was created using [employer] report generation technology. COMPARISON: None. FINDINGS: LUNGS AND PLEURAL SPACES: Unremarkable. No consolidation or edema. No pneumothorax. No effusion. HEART: Cardiac silhouette is mildly enlarged in size. Atrial appendage clip is in place. MEDIASTINUM: Central airways and mediastinal contour are unremarkable. BONES/JOINTS: Unremarkable. No evidence of displaced rib fractures. RAD/Ribs Uni Min 3V w/PA Chest IMPRESSION: Cardiomegaly with no acute pulmonary abnormality. There are no abnormalities of the right ribs. Electronically Signed: Austin Humphreys MD at 2:52 EDT ,
== END | disposition home or self-care (01) ==
LOC: RAD 16:35
PROVIDERS: PCP Family Medicine Geriatric Medicine; Referring Provider Family Medicine Geriatric Medicine; Visit Provider Family Medicine Geriatric Medicine
DX: R07.81 Pleurodynia (principal)
CPT/HCPCS: 71101

== ENCOUNTER → 2021-10-07 | Outpatient (CLI) | payer MEDICARE, OTHER, SELFPAY ==
[2021-09-17 08:31] VITALS: BMI 38.4
--- NOTE | 2021-10-07 10:00 | TISS_PTH ---
PATIENT: ERICKA SHELDON LOC: [facility] U#:[id number] AGE/SX: 76/M ROOM: RE10/07/[address]: Dr. Wilbert Pradhan MD : [id number] BED: DIS: 10/07/2021 SPEC #: [id number] RECD: 10/08/21 08:22 STATUS: FRANK DAON #: [id number] FREDY: 10/07/21 10:[address]: Wilbert Pradhan Chi DEPT: SURGICAL PATHOLOGY RECD BY: Naima Cabrera Tissues: Skin of leg, NOS Procedures: Surgery Specimen Level IV HEADER OPERATION: Shave biopsy, left leg PRE-OP DIAGNOSIS: L98.9 TISSUE SUBMITTED: Left leg MICROSCOPIC DIAGNOSIS Skin lesion of left leg, shave biopsy: Seborrheic keratosis with actinic features. AM:manohar 10/09/2021 MICROSCOPIC DESCRIPTION Slides are reviewed. GROSS DESCRIPTION Received in fixative is one container labeled with the patient's name and designated left leg. The specimen consists of a light pham shave biopsy of skin measuring 1.2 x 1 x 0.2 cm. The specimen is inked, serially sectioned and totally submitted in one cassette. / AM:manohar 10/08/2021 TC:5 CPT: 84003
== END | disposition home or self-care (01) ==
PROVIDERS: PCP Family Medicine Geriatric Medicine; Visit Provider Family Medicine Geriatric Medicine
DX: L98.9 Disorder of the skin and subcutaneous tissue, unspecified (principal)
CPT/HCPCS: 88305

== ENCOUNTER 2021-10-08 14:30 | Outpatient (RCR) | payer MEDICARE, OTHER, SELFPAY ==
[2021-08-15 12:02] VITALS: BMI 37.7
--- NOTE | 2021-09-17 08:22 | CR.ITP_ITS ---
Diagnosis - General Information Admitting Diagnosis: S/P CABG Exercise - 30-day Assessment - Visit Date of Eval: 09/17/21 Session #:: 12 - Physician Prescribed Exercise Modalities: NuStep Frequency: 3x/week for 12 weeks [36 sessions] Intensity: 60-80% of age predicted maximum heart rate reserve Current METSs:: 2 Target Heart Rate:: 93-108 Current RPE:: 12 Maximum Excercise HR:: 143 Resting Blood Pressure: 108/68 Maximum Exercise Blood Pressure: 116/72 EKG Type: afib - Outcomes & Goals Goals:: Verbalizes understanding of THR, RPE & goal METS by session 6, Documents in home exercise log/reports 30 min aerobic 5 day/wk by DC, Demonstrates accurate pulse taking by DC, Other additional outcome/goals: see below - Intervention & Plan Exercise Program Goals: Instruct on personal THR & RPE, Instruct on MET level & personal MET goal, Show patient to take own pulse /validate performance until accurate, Instruct on home exercise, Other additional plan/int - 30-day Reassessments 30 day Reassessments:: Progressing - Physical Activity Home Exercise Physical Activity - Home Exercise: Safe Exercise, Warm-up, Self-monitoring, Cool-Down, Home Exercise > 30 min Daily, Sitting Time <3 hours/daily - Outcomes & Goals Outcomes/Goals: Demonstrates correct Warm-up/exercise Cool-Down (S3) if = 2.5 METs, Verbalizes symptoms of exercise intolerance by Session 3 (S3), Demonstrate safe equipment use (S3) & follows exercise prescrition (6), Other: See below - Intervention & Plan Plan/Intervention: Instruct warm-up & cool-down if exercising at > 2 METs, Instruct on symptoms of exercise intolerance & actions to take, Instruct & monitor on saf, Assess intial functional capacity & safety risk, Other See below - 30-day Reassessments 30 day Reassessments:: Progressing Nutrition - Initial Assessment Nutrition - 30-Day Assessment - Visit Date of Assessment:: 09/17/21 Session #:: 12 - Cholesterol/Lipids Determine presence & major risk factors that modify LDL goal: Hypertension or hypertensive medication, Low HDL cholesterol <40 mg/dL*, Family history of premature CHD in Male < 55 years: female <65 yearsFa, Age men > 45 years; women >/= 55 years Outcomes/Goals: Pt IDs own risk factors & lifestyle modifications by Session 10, Verbalizes symptoms of angina & response by session 3., Pt independently manages, Other Additional Outcomes/Goals: Intervention/Plan: Advocate for lipid panel cholesterol medication if applicable, Instruct on personal lipid levels & lipid goals/NCEP guidelines, Instruct on cholesterol, Other additional plan/int 30-day Reassessments:: Progressing - Weight Mgt (Other Care) Height: 5 ft 10 in Weight:: 121.563 kg BMI: 38.4 Outcomes/Goals: Pt sets, maintains & shows weight loss goal & trend during rehab, Other additional outcomes/goals Intervention/Plan: Instruct on ideal BMI & set weight loss goal w/patient, Assist pt to ID & incorporate diet changes for weight loss by S9, Refer to Structured Weight Loss program as appropriate, Encourage goal of using 250- 300dcal per session for weight loss, Other additional plan/interventions 30 day Reassessments:: Progressing - Healthy Eating Habits Will attend diet classes:: Yes Outcomes/Goals:: Consume diet rich in vegs,fruits,whole grain/high fiber,fish,lean meat, Limit sat/trans fats,cholesterol & added salts & sugars, Other additional outcome/goals: 30-day Reassessments:: Progressing - Education Gave educational materials for:: Signs & symptoms of hypoglycemia, Signs & symptoms of hyperglycemia, Relate diabetes to coronary artery disease, Healthy eating Nutrition - 60-Day Assessment Nutrition - 90-Day Assessment Nutrition - Final Assessment Medical - Initial Assessment Medical- 30-Day Assessment - Visit Date of Eval: 09/17/21 Session #:: 12 - Medication Compliance Preventative Medication(s):: Aspirin, CHRISS inhibitor, Statin/lipid, Beta yulia, Eliquis H/O mental health issues: depression, anxiety, or addiction?: No Doesn?t believe in the benefits of treatment?: No Believes medications are unnecessary or harmful?: No Has a concern about medication side effects?: No Expresses concern over the cost of medications?: No Outcomes/Goals: Verbalizes medications,desired effect & common side effects @ DC, Pt self-reports following medication regimen, Keeps card in wallet w/medications listed by DC, Other additional outcome/goals: Interventions/plans: Instruct on medication effects & side effects, Review medication list w/patient every two weeks, Instruct importance of taking meds as ordered & assist problem solving, Other additional 30-day Reassessments:: Progressing - Tobacco Use Tobacco Use: Non-smoker 30-day Reassessments:: Progressing - Hypertension Hypertension Diagnosis:: Hypertension ICD-10 I10 Resting Blood Pressure:: 108/68 [place] [employer] Hypertension Guidelines: [place] [employer] Hypertension Guidelines. Normal BP Less than 120/80. Elevated BP 120/80. Hypertension Stage 1: BP 130-139/80-89. Hypertesnion Stage 2: BP 140 or higher/90 or higher. Hypertension Crisis: BP higher than 180/120 Peak Exercise Blood Pressure:: 116/72 Outcomes/Goals: Able to verbalize/achieve optimal blood pressure <130/80, Incorporates diet changes & exercise for blood pressure control by DC, Other additional outcomes/goals Interventions/plan: Instruct on optimal blood pressure, hypertension & medications, Instruct on effects of sodium, alcohol, stress, exercise &hypertension, Other additional plan/interventions 30 day Reassessments:: Progressing - Tobacco Cessation Referral Smoking Cessation Referral:: No Individual Education/Counseling:: No Education Schedule Given:: Yes Medical- 60-Day Assessment Medical- 90-Day Assessment Medical - Final Assessment Psychosocial - Initial Assess Psychosocial - 30-Day Assess - VIsit Date of Eval: 09/17/21 History of Emotional Disorders: Depression - Outcomes/Goals: See list Psychosocial Outcomes/Goals:: ID's personal stressors & 2 strategies to manage stress by discharge, Other Additional outcome/goals: - Intervention/Plan: See List Interventions/Plan:: Assess stressors,coping strategies & signs of derpression on admission, Instruct/assist pt to develop coping & personal stress Mgt strategies, Refer to Behavioral Health if appropriate, Refer to Physician if appropriate, Instruct patient to recognize signs & symptoms of depression, Instruct patient to recog, Other additional plan/intervention - 30-day Reassessments: 30 day Reassessments:: Progressing Psychosocial - 60-Day Assess Psychosocial - 90-Day Assess Psychosocial - Final Assessmen Patient Health Questionnaire 30-Day Re-eval Assessment 1. Little interest or pleasure in doing things: More than half the days 2. Feeling down, depressed, or hopeless: More than half the days 3. Trouble falling or staying asleep, or sleeping too much: More than half the days 4. Feeling tired or having little energy: More than half the days 5. Poor appetite or overeating: Several days 6. Feeling bad about yourself -- or that you are a failure or have let yourself or your family down: Several days 7. Trouble concentrating on things, such as reading the newspaper or watching television: Several days 8. Moving or speaking so slowly that other people could have noticed. Or the opposite - being so fidgety or restless that you have been moving around a lot more than usual: Not at all 9. Thoughts that you would be better off , or of hurting yourself in some way: Not at all How difficult have these problems made it for you to do your work, take care of things at home, or get along with other people?: Somewhat difficult Total Score: 11 Self-Efficacy 30-Day Re-eval Assessment We would like to know how confident you are in doing certain activities. Please select your confidence level for:: Select your confidence level for the following using the scale 1-10 where 1 is not at all confident and 10 is totally confident. Your score is the average of all 6 responses. Fatigue: How confident are you that you can keep the fatigue caused by your disease from interfering with the things you want to do? Select Number: 3 Physical Discomfort or Pain: How confident are you that you can keep the physical discomfort or pain of your disease from interfering with the things you want to do? Select Number: 5 Emotional Distress: How confident are you that you can keep the emotional distress caused by your disease from interfering with the things you want to do? Select Number: 3 Other Symptoms or Health Problems: How confident are you that you can keep other symptoms or health problems from interfering with the things you want to do? Select Number: 4 Different Tasks and Activities: How confident are you that you can do the different tasks and activities needed to manage your health condition so as to reduce your need to see a doctor? Select Number: 4 Medication: How confident are you that you can do things other than just taking medication to reduce how much your illness affects your everyday life? Select Number: 5 Total Score:: 4 Nutrition Survey
[2021-09-17 08:31] VITALS: BP 108/68; BP 116/72; BMI 38.4
== END 2021-10-08 23:59 ==
LOC: CR 14:30
PROVIDERS: PCP Family Medicine Geriatric Medicine; Referring Provider Thoracic Surgery (Cardiothoracic Vascular Surgery); Visit Provider Internal Medicine Cardiovascular Disease
DX: I25.10 Atherosclerotic heart disease of native coronary artery without angina pectoris (principal); Z95.1 Presence of aortocoronary bypass graft
CPT/HCPCS: 93798

== ENCOUNTER 2021-10-27 15:01 | Outpatient (RCR) | payer MEDICARE, OTHER, SELFPAY ==
[2021-09-17 08:31] VITALS: BMI 38.4
== END 2021-11-07 23:59 ==
LOC: NS 15:01
PROVIDERS: PCP Family Medicine Geriatric Medicine; Referring Provider Internal Medicine Cardiovascular Disease; Visit Provider Internal Medicine Cardiovascular Disease
DX: Z71.3 Dietary counseling and surveillance (principal); E66.9 Obesity, unspecified; Z68.35 Body mass index [BMI] 35.0-35.9, adult; I12.9 Hypertensive chronic kidney disease with stage 1 through stage 4 chronic kidney disease, or unspecified chronic kidney disease; N18.30 Chronic kidney disease, stage 3 unspecified; E78.5 Hyperlipidemia, unspecified; K22.70 Barrett's esophagus without dysplasia; K20.90 Esophagitis, unspecified without bleeding
CPT/HCPCS: 97803

== ENCOUNTER 2021-11-07 14:30 | Outpatient (RCR) | payer MEDICARE, OTHER, SELFPAY ==
[2021-09-17 08:31] VITALS: BMI 38.4
[2021-10-09 00:37] VITALS: BP 108/68; BP 116/72
--- NOTE | 2021-10-16 07:36 | PCM.CR.ITP ---
Diagnosis Exercise - 60-day Assessment - Visit Date of Eval: 10/16/21 Session #:: 23 - Physician Prescribed Exercise Modalities: Treadmill, NuStep Frequency: 3x/week for 12 weeks [36 sessions] Intensity: 60-80% of age predicted maximum heart rate reserve Duration: 30 - 45 minutes Current METSs:: 2.0 patient is focused on his endurance versus intensity at this time Target Heart Rate:: 93-108 Current RPE:: 11-13 Maximum Excercise HR:: 121 Resting Blood Pressure: 120/70 Maximum Exercise Blood Pressure: 170/100 EKG Type: Atrial fib/flutter w ventricular ectopy, rare episodes of aberrant beats Current Physical Activity or Exercising minutes: 33:48 - Outcomes & Goals Goals:: Verbalizes understanding of THR, RPE & goal METS by session 6, Documents in home exercise log/reports 30 min aerobic 5 day/wk by DC, Demonstrates accurate pulse taking by DC Comment:: Verbalizes understanding of CASI Scale and RPE during exercise - Intervention & Plan Exercise Program Goals: Instruct on personal THR & RPE, Instruct on MET level & personal MET goal, Show patient to take own pulse /validate performance until accurate, Instruct on home exercise - 30-day Reassessments 30 day Reassessments:: Not Met - Physical Activity Home Exercise Physical Activity - Home Exercise: Safe Exercise, Warm-up, Self-monitoring, Cool-Down, Home Exercise > 30 min Daily, Sitting Time <3 hours/daily - Outcomes & Goals Outcomes/Goals: Demonstrates correct Warm-up/exercise Cool-Down (S3) if = 2.5 METs, Verbalizes symptoms of exercise intolerance by Session 3 (S3), Demonstrate safe equipment use (S3) & follows exercise prescrition (6) - Intervention & Plan Plan/Intervention: Instruct warm-up & cool-down if exercising at > 2 METs, Instruct on symptoms of exercise intolerance & actions to take, Instruct & monitor on saf, Assess intial functional capacity & safety risk Comment: patient verbalizes and demonstrates warm-up & cool-down, follows exercise - 30-day Reassessments 30 day Reassessments:: Progressing Reassessment Notes & Comments:: patient verbalizes and demonstrates warm-up & cool-down, follows exercise Nutrition - Initial Assessment Nutrition - 30-Day Assessment Nutrition - 60-Day Assessment - Program Goals Nutrition Program Goals: LDL <100 optimal. 100 - 129 Near optimal. 130 - 159 Borderline High. 160 - 189 High. Total Cholesterol <200 desirable. 200 - 239 Borderline High. >/= 240 High. HDL < 40 Low >/=60 High. Triglycerides <150 desirable. <199 optimal. VlDL 5 - 40. HgbA1C <7%. BMI <25 Patient has diagnosis of Hyperlipidemia (ICD E78)?: Yes - Visit Date of Assessment:: 10/16/21 Session #:: 24 - No recent labs drawn since intital evaluation - Cholesterol/Lipids Determine presence & major risk factors that modify LDL goal: Hypertension or hypertensive medication, Family history of premature CHD in Male < 55 years: female <65 yearsFa, Age men > 45 years; women >/= 55 years Outcomes/Goals: Pt IDs own risk factors & lifestyle modifications by Session 10, Verbalizes symptoms of angina & response by session 3., Pt independently manages Intervention/Plan: Instruct on personal lipid levels & lipid goals/NCEP guidelines, Instruct on cholesterol Referral to dietitian:: No - Patient had [facility] on 09/24/2021 30-day Reassessments:: Met Reassessment Notes & Comments:: Patient takes statin medication regularly. - Diabetes (Other Core Measures) Diabetes Type: Not Applicable - Healthy Eating Habits Will attend diet classes:: Yes Outcomes/Goals:: Consume diet rich in vegs,fruits,whole grain/high fiber,fish,lean meat, Limit sat/trans fats,cholesterol & added salts & sugars Intervention/Plan:: Assess current eating habits 30-day Reassessments:: Progressing Reassessment Notes & Comments:: Patient participating in structured weight loss program - Education Gave educational materials for:: Healthy eating - patient following weight loss, cardiac diet Nutrition - 90-Day Assessment Nutrition - Final Assessment Core - Initial Assessment Core - 30-Day Assessment Core - 60-Day Assessment - Visit Date of Eval: 10/16/21 Session #:: 23 - Medication Compliance Preventative Medication(s):: Aspirin, CHIRSS inhibitor, Statin/lipid, Beta yulia, Eliquis H/O mental health issues: depression, anxiety, or addiction?: Yes Doesn?t believe in the benefits of treatment?: No Believes medications are unnecessary or harmful?: No Has a concern about medication side effects?: No Expresses concern over the cost of medications?: No Outcomes/Goals: Verbalizes medications,desired effect & common side effects @ DC, Pt self-reports following medication regimen, Keeps card in wallet w/medications listed by DC Interventions/plans: Instruct on medication effects & side effects, Review medication list w/patient every two weeks, Instruct importance of taking meds as ordered & assist problem solving 30-day Reassessments:: Met Reassessment Notes & Comments:: Patient takes medications with assistance from his and pill organizer. - Tobacco Use Tobacco Use: Non-smoker - Hypertension Hypertension Diagnosis:: Hypertension ICD-10 I10 Resting Blood Pressure:: 104/62 [place] [employer] Hypertension Guidelines: [place] [employer] Hypertension Guidelines. Normal BP Less than 120/80. Elevated BP 120/80. Hypertension Stage 1: BP 130-139/80-89. Hypertesnion Stage 2: BP 140 or higher/90 or higher. Hypertension Crisis: BP higher than 180/120 Peak Exercise Blood Pressure:: 134/62 Outcomes/Goals: Able to verbalize/achieve optimal blood pressure <130/80 Interventions/plan: Instruct on optimal blood pressure, hypertension & medications, Instruct on effects of sodium, alcohol, stress, exercise &hypertension 30 day Reassessments:: Met Reassessment Notes & Comments:: Patient controlling BPs with medications - Tobacco Cessation Referral Smoking Cessation Referral:: No Individual Education/Counseling:: No Education Schedule Given:: Yes - patient participating in group education Core - 90 Day Assessment Core - Final Assessment Psychosocial - Initial Assess Psychosocial - 30-Day Assess Psychosocial - 60-Day Assess - VIsit Date of Eval: 10/16/21 Session #:: 23 Not Applicable: No History of previous Mental disease:: Yes - Mood Disorder History of Emotional Disorders: Depression - Psychosocial Test Tool Used:: PHQ-9 Questionnaire phq-9 Severity: Severity. 1-4 Minimal Depression. 5-9 Mild Depression. 10-14 Moderate Depression. 15-19 Moderately Sever Depression. 20-27 Severe Depression. Rule: Total Score:: 11 - Referral to Behavioral Health PS - Interventions: Yes Referral to Physician if PHQ-9 if score is 5-9: - Refer back to his PCP, Yes Attend Stress Management Classes, No Referral to Behavioral Health if PHQ-9 score >9:, No Referral to [facility] - Outcomes/Goals: See list Psychosocial Outcomes/Goals:: ID's personal stressors & 2 strategies to manage stress by discharge - Intervention/Plan: See List Interventions/Plan:: Assess stressors,coping strategies & signs of derpression on admission, Instruct/assist pt to develop coping & personal stress Mgt strategies, Instruct patient to recognize signs & symptoms of depression, Instruct patient to recog Psychosocial - 90-Day Assess Psychosocial - Final Assessmen Patient Health Questionnaire 60-Day Re-eval Assessment 1. Little interest or pleasure in doing things: Several days 2. Feeling down, depressed, or hopeless: Several days 3. Trouble falling or staying asleep, or sleeping too much: More than half the days 4. Feeling tired or having little energy: More than half the days 5. Poor appetite or overeating: Several days 6. Feeling bad about yourself -- or that you are a failure or have let yourself or your family down: Several days 7. Trouble concentrating on things, such as reading the newspaper or watching television: Several days 8. Moving or speaking so slowly that other people could have noticed. Or the opposite - being so fidgety or restless that you have been moving around a lot more than usual: More than half the days 9. Thoughts that you would be better off , or of hurting yourself in some way: Not at all How difficult have these problems made it for you to do your work, take care of things at home, or get along with other people?: Somewhat difficult Total Score: 11 Self-Efficacy 60-Day Re-eval Assessment We would like to know how confident you are in doing certain activities. Please select your confidence level for:: Select your confidence level for the following using the scale 1-10 where 1 is not at all confident and 10 is totally confident. Your score is the average of all 6 responses. Fatigue: How confident are you that you can keep the fatigue caused by your disease from interfering with the things you want to do? Select Number: 4 Physical Discomfort or Pain: How confident are you that you can keep the physical discomfort or pain of your disease from interfering with the things you want to do? Select Number: 6 Emotional Distress: How confident are you that you can keep the emotional distress caused by your disease from interfering with the things you want to do? Select Number: 4 Other Symptoms or Health Problems: How confident are you that you can keep other symptoms or health problems from interfering with the things you want to do? Select Number: 5 Different Tasks and Activities: How confident are you that you can do the different tasks and activities needed to manage your health condition so as to reduce your need to see a doctor? Select Number: 5 Medication: How confident are you that you can do things other than just taking medication to reduce how much your illness affects your everyday life? Select Number: 6 Total Score:: 5 Nutrition Survey
[2021-10-16 07:52] VITALS: BP 104/62; BP 120/70; BP 134/62
== END 2021-11-07 23:59 ==
LOC: CR 14:30
PROVIDERS: PCP Family Medicine Geriatric Medicine; Referring Provider Thoracic Surgery (Cardiothoracic Vascular Surgery); Visit Provider Internal Medicine Cardiovascular Disease
DX: I25.10 Atherosclerotic heart disease of native coronary artery without angina pectoris (principal); Z95.1 Presence of aortocoronary bypass graft; N18.31 Chronic kidney disease, stage 3a
CPT/HCPCS: 36415; 80069; 82570; 84156; 85027; 93798

== ENCOUNTER 2021-11-19 14:30 | Outpatient (RCR) | payer MEDICARE, OTHER, SELFPAY ==
[2021-09-17 08:31] VITALS: BMI 38.4
[2021-11-08 01:29] VITALS: BP 104/62; BP 120/70; BP 134/62
--- NOTE | 2021-11-17 11:25 | CR.ITP_ITS ---
Diagnosis Exercise - 90-day Assessment - Visit Date of Eval: 11/17/21 Session #:: 34 - Physician Prescribed Exercise Modalities: Treadmill, NuStep Frequency: 3x/week for 12 weeks [36 sessions] Intensity: 60-80% of age predicted maximum heart rate reserve Current METSs:: 2 Target Heart Rate:: 93-108 Current RPE:: 12-13 Maximum Excercise HR:: 130 Resting Blood Pressure: 118/74 Maximum Exercise Blood Pressure: 130/78 - Outcomes & Goals Goals:: Verbalizes understanding of THR, RPE & goal METS by session 6, Documents in home exercise log/reports 30 min aerobic 5 day/wk by DC, Demonstrates accurate pulse taking by DC, Other additional outcome/goals: see below - 30-day Reassessments 30 day Reassessments:: Progressing - THR explained - Physical Activity Home Exercise Physical Activity - Home Exercise: Safe Exercise, Warm-up, Self-monitoring, Cool-Down, Home Exercise > 30 min Daily, Sitting Time <3 hours/daily - Outcomes & Goals Outcomes/Goals: Demonstrates correct Warm-up/exercise Cool-Down (S3) if = 2.5 METs, Verbalizes symptoms of exercise intolerance by Session 3 (S3), Demonstrate safe equipment use (S3) & follows exercise prescrition (6), Other: See below - Intervention & Plan Plan/Intervention: Instruct warm-up & cool-down if exercising at > 2 METs, Instruct on symptoms of exercise intolerance & actions to take, Instruct & monitor on saf, Assess intial functional capacity & safety risk, Other See below - 30-day Reassessments 30 day Reassessments:: Progressing - safe exercise explained Nutrition - Initial Assessment Nutrition - 30-Day Assessment Nutrition - 60-Day Assessment Nutrition - 90-Day Assessment - Program Goals Nutrition Program Goals: LDL <100 optimal. 100 - 129 Near optimal. 130 - 159 Borderline High. 160 - 189 High. Total Cholesterol <200 desirable. 200 - 239 Borderline High. >/= 240 High. HDL < 40 Low >/=60 High. Triglycerides <150 desirable. <199 optimal. VlDL 5 - 40. HgbA1C <7%. BMI <25 Patient has diagnosis of Hyperlipidemia (ICD E78)?: Yes - Visit Date of Assessment:: 11/17/21 Session #:: 34 - Cholesterol/Lipids (Other Core Measures) Determine presence & major risk factors that modify LDL goal: Hypertension or hypertensive medication, Low HDL cholesterol <40 mg/dL*, Family history of premature CHD in Male < 55 years: female <65 yearsFa, Age men > 45 years; women >/= 55 years Outcomes/Goals: Pt IDs own risk factors & lifestyle modifications by Session 10, Verbalizes symptoms of angina & response by session 3., Pt independently manages, Other Additional Outcomes/Goals: Intervention/Plan: Advocate for lipid panel cholesterol medication if applicable, Instruct on personal lipid levels & lipid goals/NCEP guidelines, Instruct on cholesterol, Other additional plan/int 30-day Reassessments:: Progressing - risk factors explained - Diabetes (Other Core Measures) Diabetes Type: Not Applicable - Weight Mgt (Other Care) Outcomes/Goals: Pt sets, maintains & shows weight loss goal & trend during rehab, Other additional outcomes/goals Intervention/Plan: Instruct on ideal BMI & set weight loss goal w/patient, Assist pt to ID & incorporate diet changes for weight loss by S9, Refer to Structured Weight Loss program as appropriate, Encourage goal of using 250- 300dcal per session for weight loss, Other additional plan/interventions 30 day Reassessments:: Progressing - attended nutition class - Healthy Eating Habits Will attend diet classes:: Yes Outcomes/Goals:: Consume diet rich in vegs,fruits,whole grain/high fiber,fish,lean meat, Limit sat/trans fats,cholesterol & added salts & sugars, Other additional outcome/goals: Intervention/Plan:: Assess current eating habits, Other Additional plan/interventions 30-day Reassessments:: Progressing - attended nutrition class - Education Gave educational materials for:: Signs & symptoms of hypoglycemia, Signs & symptoms of hyperglycemia, Relate diabetes to coronary artery disease, Healthy eating Nutrition - Final Assessment Core - Initial Assessment Core - 30-Day Assessment Core - 60-Day Assessment Core - 90 Day Assessment - Visit Date of Eval: 11/17/21 Session #:: 34 - Medication Compliance Preventative Medication(s):: Aspirin, CHRISS inhibitor, Statin/lipid, Beta yulia H/O mental health issues: depression, anxiety, or addiction?: No Doesn?t believe in the benefits of treatment?: No Has a concern about medication side effects?: No Expresses concern over the cost of medications?: No Outcomes/Goals: Verbalizes medications,desired effect & common side effects @ DC, Pt self-reports following medication regimen, Keeps card in wallet w/medications listed by DC, Other additional outcome/goals: Interventions/plans: Instruct on medication effects & side effects, Review medication list w/patient every two weeks, Instruct importance of taking meds as ordered & assist problem solving, Other additional 30-day Reassessments:: Progressing - encouraged to take meds - Tobacco Use Tobacco Use: Non-smoker - Hypertension Hypertension Diagnosis:: Hypertension ICD-10 I10 Resting Blood Pressure:: 118/74 [place] [employer] Hypertension Guidelines: [place] [employer] Hypertension Guidelines. Normal BP Less than 120/80. Elevated BP 120/80. Hypertension Stage 1: BP 130-139/80-89. Hypertesnion Stage 2: BP 140 or higher/90 or higher. Hypertension Crisis: BP higher than 180/120 Peak Exercise Blood Pressure:: 130/78 Outcomes/Goals: Able to verbalize/achieve optimal blood pressure <130/80, Incorporates diet changes & exercise for blood pressure control by DC, Other additional outcomes/goals Interventions/plan: Instruct on optimal blood pressure, hypertension & medications, Instruct on effects of sodium, alcohol, stress, exercise &hypertension, Other additional plan/interventions 30 day Reassessments:: Progressing - encouraged to take meds - Tobacco Cessation Referral Smoking Cessation Referral:: No Individual Education/Counseling:: No Education Schedule Given:: Yes Core - Final Assessment Psychosocial - Initial Assess Psychosocial - 30-Day Assess Psychosocial - 60-Day Assess Psychosocial - 90-Day Assess - VIsit Date of Eval: 11/17/21 Session #:: 34 History of previous Mental disease:: Yes History of Emotional Disorders: Depression Psychosocial - Final Assessmen Patient Health Questionnaire 90-Day Re-eval Assessment 1. Little interest or pleasure in doing things: Several days 2. Feeling down, depressed, or hopeless: Several days 3. Trouble falling or staying asleep, or sleeping too much: More than half the days 4. Feeling tired or having little energy: More than half the days 5. Poor appetite or overeating: Several days 6. Feeling bad about yourself -- or that you are a failure or have let yourself or your family down: Several days 7. Trouble concentrating on things, such as reading the newspaper or watching television: Several days 8. Moving or speaking so slowly that other people could have noticed. Or the opposite - being so fidgety or restless that you have been moving around a lot more than usual: Several days 9. Thoughts that you would be better off , or of hurting yourself in some way: Not at all How difficult have these problems made it for you to do your work, take care of things at home, or get along with other people?: Somewhat difficult Total Score: 10 Self-Efficacy 90-Day Re-eval Assessment We would like to know how confident you are in doing certain activities. Please select your confidence level for:: Select your confidence level for the following using the scale 1-10 where 1 is not at all confident and 10 is totally confident. Your score is the average of all 6 responses. Fatigue: How confident are you that you can keep the fatigue caused by your disease from interfering with the things you want to do? Select Number: 4 Physical Discomfort or Pain: How confident are you that you can keep the physical discomfort or pain of your disease from interfering with the things you want to do? Select Number: 6 Emotional Distress: How confident are you that you can keep the emotional distress caused by your disease from interfering with the things you want to do? Select Number: 4 Other Symptoms or Health Problems: How confident are you that you can keep other symptoms or health problems from interfering with the things you want to do? Select Number: 5 Different Tasks and Activities: How confident are you that you can do the different tasks and activities needed to manage your health condition so as to reduce your need to see a doctor? Select Number: 5 Medication: How confident are you that you can do things other than just taking medication to reduce how much your illness affects your everyday life? Select Number: 6 Total Score:: 5 Nutrition Survey
[2021-11-17 11:32] VITALS: BP 118/74; BP 130/78
== END 2021-12-08 23:59 ==
LOC: CR 14:30
PROVIDERS: PCP Family Medicine Geriatric Medicine; Referring Provider Thoracic Surgery (Cardiothoracic Vascular Surgery); Visit Provider Internal Medicine Cardiovascular Disease
DX: I25.10 Atherosclerotic heart disease of native coronary artery without angina pectoris (principal); Z95.1 Presence of aortocoronary bypass graft; N18.31 Chronic kidney disease, stage 3a
CPT/HCPCS: 93798

== ENCOUNTER → 2021-11-21 | Outpatient (CLI) | payer MEDICARE, OTHER, SELFPAY ==
[2021-09-17 08:31] VITALS: BMI 38.4
[2021-11-21 10:53] LABS: Absolute Lymphocyte Count 0.89 X10^3/uL (0.83-4.51); Absolute Neutrophil Count 5.8 X10^3/uL (2.0-7.7); Basophil# 0.03 X10^3/uL; Basophil% 0.4 % (0-1); Eosinophil# 0.07 X10^3/uL; Eosinophils% 0.9 % (0-5); Hematocrit 39.5 % (40-54); Lymphocyte # 0.89 X10^3/ul (0.83-4.51); Lymphocyte % 11.7 % (19-41); Mean Corp Hgb Conc 27.8 g/dL (32-36); Mean Corpuscular Hgb 23.8 pg (27.0-32.0); Mean Corpuscular Volume 85.3 fL (80-94); Mean Platelet Vol. 9.6 fl (6.2-12.0); Monocyte# 0.77 X10^3/uL; Monocyte% 10.1 % (0-10); NRBC Flagged by Analyzer 0 % (0-5); Neutrophil # 5.82 X10^3/uL (2.7-7.7); Neutrophil % 76.6 % (47-70); POSITIVE MORPHOLOGY YES; Platelet Count 182 K/mm3 (150-450); RBC Distribution Width CV 22.5 % (11.6-14.6); RBC Distribution Width SD 68.8 fl (35.1-43.9); Red Blood Count 4.63 M/mm3 (4.6-6.2); White Blood Count 7.6 K/mm3 (4.4-11.0)
[2021-11-21 10:56] LABS: Differential Indicated SCAN CRITERIA MET
[2021-11-21 11:27] LABS: Anisocytosis 1+
[2021-11-21 11:42] LABS: Thyroid Stim Hormone (TSH) 3.57 uIU/mL (0.358-3.74)
== END | disposition home or self-care (01) ==
LOC: LAB 10:24
PROVIDERS: PCP Family Medicine Geriatric Medicine; Visit Provider Family Medicine Geriatric Medicine
DX: D50.9 Iron deficiency anemia, unspecified (principal); R53.83 Other fatigue
CPT/HCPCS: 36415; 84443; 85025

== ENCOUNTER 2021-11-30 07:17 | Inpatient (IN) | payer MEDICARE, OTHER, SELFPAY ==
[2021-09-17 08:31] VITALS: BMI 38.4
[2021-11-30] VITALS (27 sets, daily range): BP systolic 72–130; BP diastolic 50–76; PULSE 67–109; RESP 20–33; TEMP 36.6–37.8; O2SAT 92–99; BMI 35.8; BMI 36.0
--- NOTE | 2021-11-30 07:43 | EKG12_ITS ---
Test Reason : Blood Pressure : / mmHG Vent. Rate : 098 BPM Atrial Rate : 070 BPM P-R Int : 000 ms QRS Dur : 086 ms QT Int : 360 ms P-R-T Axes : 000 014 124 degrees QTc Int : 459 ms Atrial fibrillation with premature ventricular or aberrantly conducted complexes ST & T wave abnormality, consider lateral ischemia Abnormal ECG Confirmed by HUGH CHAUDHARY, KENDELL ([id number]), film and video editor ANISH SMITH ([id number]) on 12/01/2021 9:49:52 AM Referred By: CORINNA Confirmed By:KENDELL REESE MD
--- NOTE | 2021-11-30 07:45 | EX.ED.DYSGE1 ---
HPI History of Present Illness Chief Complaint: Weakness Detail of Chief Complaint: Chills chills Informant: patient Onset/Context/Timing Onset: Today Current Severity: Mild Maximum Severity: Mild Narrative Narrative: 76-year-old male with extensive past medical history of A. fib, CABG about 4 months ago and cardiac stents. Also history of CKD. Patient states that he got up in the middle of the night to go the bathroom. He had chills. And felt generally weak. He had some dry heaves. Later he went to get a shower and he felt weak and tired let himself down to the floor. Denies any injury. He is on Eliquis due to his A. fib and states he did not hit his head. Denies any diarrhea. No significant cough. No shortness of breath. Right lower leg is red and warm. Prior similar symptoms: No Recent Illness/Hospitalization: No PFSH PFS Medical History Atherosclerosis of coronary artery of [place] heart without angina pectoris Atrial fibrillation Brantley's esophagus with esophagitis CAD (coronary artery disease) Chronic depression Chronic kidney disease, stage 3 Depression Essential hypertension GERD (gastroesophageal reflux disease) History of left heart catheterization (LHC) (~05/20/21) History of septic shock (04/02/16) Hyperlipidemia Iron deficiency anemia Obstructive sleep apnea Sleep apnea Home Medications apixaban 5 mg tablet (Eliquis) 5 mg PO BID blood thinner 11/07/18 [History Last Taken 06/02/21] atorvastatin 40 mg tablet 40 mg PO QHS cholesterol 11/07/18 [History Last Taken Unknown] pantoprazole 40 mg tablet,delayed release 40 mg PO DAILY gerd 11/07/18 [History Last Taken 09/10/20] paroxetine HCl 20 mg tablet 20 mg PO DAILY depression 11/07/18 [History Last Taken Unknown] trospium 20 mg tablet 20 mg PO BID bladder 07/18/19 [History Last Taken 12/03/20] carboxymethylcellulose sodium 1 % eye liquid gel drops 1 drp EACH EYE BID dry eyes 06/02/21 [History Last Taken Unknown] prednisolone acetate 1 % eye drops,suspension 1 drp EACH EYE TID eye drops 06/02/21 [History Last Taken Unknown] amiodarone 200 mg tablet 200 mg PO DAILYCM 30 days #30 tabs 06/24/21 [Rx Last Taken Unknown] acetaminophen 500 mg tablet 1,000 mg PO Q6H PRN 07/22/21 [History Last Taken Unknown] aspirin 81 mg tablet,delayed release (Adult Low Dose Aspirin) 81 mg PO DAILY 07/22/21 [History Last Taken Unknown] cholecalciferol (vitamin D3) 50 mcg (2,000 unit) tablet 50 mcg PO DAILY 07/22/21 [History Last Taken Unknown] cyanocobalamin (vitamin B-12) 1,000 mcg tablet 1,000 mcg PO BID 07/22/21 [History Last Taken Unknown] metoprolol tartrate 50 mg tablet 50 mg PO BID #180 tabs 08/26/21 [Rx Last Taken Unknown] nitroglycerin 0.4 mg sublingual tablet 0.4 mg sublingual Q5M PRN 08/26/21 [History Last Taken Unknown] potassium klor-con 20 meq PO DAILY 08/26/21 [History Last Taken Unknown] divalproex 250 mg tablet,delayed release 250 mg PO BID 09/15/21 [History Last Taken Unknown] levothyroxine 25 mcg tablet 25 mcg PO DAILY 09/15/21 [History Last Taken Unknown] sgimkogo-cbf-azzat acid 0.4 mg-lycopene 300 mcg-lutein 250 mcg tablet (Centrum Silver) 1 tab PO DAILY 09/15/21 [History Last Taken Unknown] furosemide 20 mg tablet 20 mg PO .COMPLEX 10/21/21 [History Last Taken Unknown] Allergy/AdvReac Type Severity Reaction Status Date / Time No Known Allergies Allergy Verified 11/30/21 07:18 Family History Father Cancer Lung Mother Heart disease Brother Heart disease CVA (cerebral vascular accident) Brother Heart disease Brother Heart disease Surgical History History of coronary artery bypass graft x 3 (~05/27/21) History of total left knee replacement History of total right knee replacement Stented coronary artery (04/14/07) Social History household members: spouse housing: apartment pets and animals: No Smoking Status: Never smoker alcohol intake: never substance use type: does not use caffeine: Yes Type: carbonated beverages Number of servings: 1 ROS ROS ED ROS Narrative Chills. Generalized weakness. Review of Systems ROS Unobtainable: Denies due to encephalopathy Constitutional Constitutional ED: Reports chills and fever(s) Eyes Eyes: Denies blurry vision ENT ENT ED: Denies ear pain Cardiovascular Cardiovascular: Denies chest pain Respiratory/Chest Respiratory/Chest: Denies cough or dyspnea Gastrointestinal Gastrointestinal: Reports nausea; Denies abdominal pain Genitourinary Genitourinary ED: Denies dysuria or hematuria Musculoskeletal Musculoskeletal: Denies arthralgias Integumentary Denies abscess Neurologic Neurologic: Denies headache(s) Psychiatric Psychiatric: Denies anxiety Endocrine Endocrinology: Denies cold intolerance Hematologic/Lymphatic Hematologic/Lymphatic: Reports none Allergic/Immunologic Allergic/Immunologic ED: Denies mouth swelling or tongue swelling EXAM Physical Exam Narrative Exam Narrative: 76-year-old male vital signs stable he does have a low-grade temperature 100.1 temporally. Pulse rate 105 appears to be A. fib. Initial pressure is 105/70. Pulse ox 94% on room air no hypoxia. He is in no distress. H EENT exam dry mucous members. Neck nontender no JVD. Lungs clear to auscultation bilaterally. Heart tachycardic rate of 105 appears to be irregular irregular consistent with A. fib. Abdomen soft nontender. Moving all 4 extremities. Both lower extremities have 1+ pitting edema. Right lower leg is red, shiny and warm to the touch consistent with cellulitis. 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 Normal dorsi and plantar flexion. Extremities otherwise are nontender. No deformities. Back nontender. Neurologically is awake and alert. Answering questions following commands. No focal motor deficits. Const Vital Signs: 11/30/21 07:18 11/30/21 07:21 11/30/21 07:43 Temperature 100.1 F H 100.1 F H Temperature Source Temporal Temporal Pulse Rate 105 H 105 H Respiratory Rate 24 H 24 H Blood Pressure 105/70 105/70 Blood Pressure Mean 81 81 Pulse Ox 94 94 Oxygen Delivery Method Room Air Room Air Room Air 11/30/21 08:21 Temperature 99.6 F H Temperature Source Temporal Pulse Rate 93 Respiratory Rate 22 H Blood Pressure 90/65 Blood Pressure Mean 73 Pulse Ox 94 Oxygen Delivery Method Room Air Positive well nourished, well developed and obese; Negative for cachectic, contractures or unkempt General Appearance ED: well developed and NAD; Negative for unkempt, cachectic, contractures, cyanotic or diaphoretic Nutritional Appearance: obese; Negative for cachectic HEENT Reports dry mucous membranes; Denies moist mucous membranes Negative for trauma or tenderness Mouth ED: Yes dry mucous membranes Mouth: dry mucous membranes Eyes PERRL and EOMs intact bilaterally General Eye ED: Negative for pale conjunctiva or scleral icterus Neck no lymphadenopathy, supple and no JVD General: Negative for tenderness Chest Wall inspection of chest normal and palpation of chest normal Chest: Negative for other Resp normal respiratory effort and clear to auscultation bilaterally Effort and Inspection: Negative for retractions Auscultation: Negative for rales, rhonchi or wheezes Cardio S1 normal heart sound, S2 normal heart sound and no murmurs; Negative for regular rate or regular rhythm Rhythm: abnormal rhythm irregularly irregular GI normal to inspection, nondistended, normoactive bowel sounds, non-tender, non-distended and no masses Auscultation: normoactive bowel sounds Palpation: soft; Negative for tender Back/Spine no CVA tenderness General Back: Negative for CVA tenderness Cervical Spine: Negative for cervical spine tenderness Thoracic Spine / Upper Back: Negative for thoracic spinal tenderness or paraspinal muscle tenderness Lumbar Spine / Lower Back: Negative for lumbar spinal tenderness Extremity Negative for normal to inspection Extremity Narrative: Bilateral lower extremity 1+ pitting edema. Right lower leg red, warm to touch consistent with cellulitis. General Extremety ED: Yes edema General Extremity: edema Neuro oriented x3 and CN's II-XII intact bilaterally Sensorium / Orientation: alert; Negative for orientation impaired, lethargic or stuporous Motor Exam: strength 5/5 throughout Psych mental status grossly normal Appearance: Negative for unkempt Attitude: No agitated Mood & Affect: Negative for depressed, anxious or tearful Skin No no rashes or lesions noted and no wounds Rashes: rashes noted Trauma: Negative for abrasion Wounds: Negative for wounds noted MDM MDM MDM Narrative Medical decision making narrative: 76-year-old male extensive past medical history consistent with A. fib on chronic anticoagulation. Presents with a low-grade fever 100.1. Generalized weakness and a minor fall. Will undergo a septic work-up. His right lower extremity appears to be obvious cellulitis. He will be started on IV Unasyn. Placed to a septic work-up. Treated with Tylenol for his fever. A liter normal saline because clinically looks dehydrated. Repeat exam patient is doing well at 8:58 AM. Hospitalist is on page for admission. He is receiving a liter normal saline. He has been ordered IV Unasyn for his cellulitis. I spoke to the hospitalist about admission. While the patient was being evaluated by the hospitalist he did drop his blood pressure. His systolic blood pressures in the 80s. He will be given a second liter of normal saline. Changes admission to the ICU. Lab Data Attestation: I reviewed the patient's lab results. Lab results narrative: CBC shows an elevated white count of 15.4. H&H 13.3 and 44. Platelet count is 145,000. PT, INR PTT are 19.5, 1.7 and 30. Electrolytes unremarkable gap of 7. BUN and creatinine of 40 and 2.1. Liver enzymes unremarkable. Glucose 129. Lactic acid is 2.3. Labs: Laboratory Results - last 24 hr 11/30/21 11/30/21 11/30/21 08:10 08:10 08:10 WBC 15.4 H RBC 5.21 Hgb 13.3 Hct 44.7 MCV 85.8 MCH 25.5 L MCHC 29.8 L RDW Std Deviation 73.5 H RDW Coeff of Sylwia 23.9 H Plt Count 145 L MPV 10.3 Immature Gran % (Auto) 0.900 Neut % (Auto) 92.1 H Lymph % (Auto) 2.2 L [place] % (Auto) 4.6 Eos % (Auto) 0.1 Baso % (Auto) 0.1 Absolute Neuts (auto) 14.2 H Absolute Lymphs (auto) 0.34 L Nucleated RBC % 0 Differential Comment SCANNED Anisocytosis 2+ Microcytosis 1+ Macrocytosis 1+ PT 19.5 H INR 1.7 APTT 30.4 Sodium 138 Potassium 3.9 Chloride 103 Carbon Dioxide 28.0 Anion Gap 7 BUN 40 H Creatinine 2.10 H Estim Creat Clear Calc 31.38 Est GFR (MDRD) Af Amer 40 L Est GFR (MDRD) Non-Af 33 L BUN/Creatinine Ratio 19.0 Glucose 129 H Lactic Acid Calcium 8.9 Total Bilirubin 1.30 H AST 41 H ALT 78 H Alkaline Phosphatase 140 H Total Protein 6.6 Albumin 3.5 Globulin 3.1 Albumin/Globulin Ratio 1.1 Urine Color Urine Clarity Urine pH Ur Specific [place] Urine Protein Urine Glucose (UA) Urine Ketones Urine Occult Blood Urine Nitrite Urine Bilirubin Urine Urobilinogen Ur Leukocyte Esterase Urine RBC Urine WBC Ur Squamous Epith Cells Urine Bacteria Urine Mucus 11/30/21 11/30/21 08:10 09:05 WBC RBC Hgb Hct MCV MCH MCHC RDW Std Deviation RDW Coeff of Sylwia Plt Count MPV Immature Gran % (Auto) Neut % (Auto) Lymph % (Auto) [place] % (Auto) Eos % (Auto) Baso % (Auto) Absolute Neuts (auto) Absolute Lymphs (auto) Nucleated RBC % Differential Comment Anisocytosis Microcytosis Macrocytosis PT INR APTT Sodium Potassium Chloride Carbon Dioxide Anion Gap BUN Creatinine Estim Creat Clear Calc Est GFR (MDRD) Af Amer Est GFR (MDRD) Non-Af BUN/Creatinine Ratio Glucose Lactic Acid 2.3 H* Calcium Total Bilirubin AST ALT Alkaline Phosphatase Total Protein Albumin Globulin Albumin/Globulin Ratio Urine Color Yellow Urine Clarity Clear Urine pH 5.0 Ur Specific [place] 1.020 Urine Protein 30 H Urine Glucose (UA) Normal Urine Ketones 5 H Urine Occult Blood 150 H Urine Nitrite Negative Urine Bilirubin 1 H Urine Urobilinogen 4 H Ur Leukocyte Esterase 25 H Urine RBC 0-5 SEEN Urine WBC 0-5 SEEN Ur Squamous Epith Cells 0 SEEN Urine Bacteria 0 SEEN Urine Mucus 0 SEEN Radiography Chest X-Ray - ED: 1 View, Read by ED Physician, Heart, Lungs, Mediastinum, Bony Structures, No Acute Disease and Chronic Changes Diagnostic Testing: Clinical Impression(s) from Imaging Studies Chest X-Ray 11/30/21 08:24 IMPRESSION: Ill-defined opacities within the lower lungs may be secondary to atelectasis and/or pneumonia. Electronically Signed: Paola Chapa MD at 8:44 EDT , Chest x-ray, portable, single view interpreted both by myself and the radiologist shows no acute abnormality. Some densities in the left lower lobe. I do not think these are infiltrates. He has had a prior CABG. There are no effusions. Rhythm Strip Rhythm Strip: A-fib Rate: 98 Ectopy: PVC(s) EKG Initial EKG: Attestation: I personally reviewed and interpreted this EKG as follows: Interpretation: Atrial Fibrillation Comments: Atrial fibrillation with PVCs. Rate of 98. No acute signs of UT or ischemia. Critical Care Time Critical Care Time: Yes Critical care time (excluding procedures): 30-74 minutes, Including time spent:, Discussing w/Patient &/or Family/Support Dba, Discussing w/Consultants, Arranging Admission or Transfer, Performing Direct Patient Care at Bedside and - (34 minutes) Discharge Plan Dx/Rx/DC Orders Clinical Impression: Fever, Cellulitis, History of atrial fibrillation, Hx of CABG, History of chronic kidney disease, Sepsis Disposition Disposition: Acute Care Hospital [facility]
[2021-11-30 08:20] LABS: Absolute Lymphocyte Count 0.34 X10^3/uL (0.83-4.51); Absolute Neutrophil Count 14.2 X10^3/uL (2.0-7.7); Basophil# 0.02 X10^3/uL; Basophil% 0.1 % (0-1); Eosinophil# 0.01 X10^3/uL; Eosinophils% 0.1 % (0-5); Hematocrit 44.7 % (40-54); Hemoglobin 13.3 g/dL (13.0-16.5); Lymphocyte # 0.34 X10^3/ul (0.83-4.51); Lymphocyte % 2.2 % (19-41); Mean Corp Hgb Conc 29.8 g/dL (32-36); Mean Corpuscular Hgb 25.5 pg (27.0-32.0); Mean Corpuscular Volume 85.8 fL (80-94); Mean Platelet Vol. 10.3 fl (6.2-12.0); Monocyte# 0.71 X10^3/uL; Monocyte% 4.6 % (0-10); NRBC Flagged by Analyzer 0 % (0-5); Neutrophil # 14.21 X10^3/uL (2.7-7.7); Neutrophil % 92.1 % (47-70); POSITIVE DIFFERENTIAL YES; POSITIVE MORPHOLOGY YES; Platelet Count 145 K/mm3 (150-450); RBC Distribution Width CV 23.9 % (11.6-14.6); RBC Distribution Width SD 73.5 fl (35.1-43.9); Red Blood Count 5.21 M/mm3 (4.6-6.2); White Blood Count 15.4 K/mm3 (4.4-11.0)
[2021-11-30] MEDS: Acetaminophen 325 MG Tablet 650 MG PO (08:20)
[2021-11-30] MEDS: 0.9% Normal Saline 1,000 ML 999 ML IV ×4 (08:20→12:52)
[2021-11-30 08:22] LABS: Differential Indicated SCAN CRITERIA MET
--- NOTE | 2021-11-30 08:24 | RAD_ITS ---
STUDY: X-RAY CHEST REASON FOR EXAM: Male, 76 years old. Fever TECHNIQUE: Single frontal view of the chest. COMPARISON: 09/25/2021. FINDINGS: There are low lung volumes. There are bilateral ill-defined opacities within the lower lungs. Sternal cerclage wires are present from a prior sternotomy. There is cardiomegaly. There is an atrial appendage clip in place. Normal mediastinum and rosi. Normal visualized pulmonary arteries. Normal visualized aortic arch and descending thoracic aorta. Normal visualized thoracic spine. Normal visualized ribs, clavicles, and shoulders. There is no demonstrated abnormality of the visualized soft tissue structures of the upper abdomen. RAD/Chest 1 View (Portable) IMPRESSION: Ill-defined opacities within the lower lungs may be secondary to atelectasis and/or pneumonia. Electronically Signed: Paola Chapa MD at 8:44 EDT ,
[2021-11-30 08:37] LABS: ALB/GLOB Ratio 1.1 RATIO (0.9-2.4); AST(SGOT) 41 U/L (15-37); Alanine Aminotransfer ALT/SGPT 78 U/L (16-61); Albumin, Serum 3.5 g/dL (3.2-5.0); Alkaline Phosphatase 140 U/L (45-117); Anion Gap 7 (5-15); BUN 40 mg/dL (7-18); Calcium,Total 8.9 mg/dL (8.5-10.1); Chloride 103 mmol/L (98-107); EST Glomerular Filtration Rate 33 mL/min (>60); Est Glom Filt Rate - Afr Amer 40 mL/min (>60); Estimated Creatinine Clearance 31.38 ml/min; Globulin 3.1 g/dL (2.2-4.2); Glucose 129 mg/dL (74-106); International Normalized Ratio 1.7; Potassium 3.9 mmol/L (3.5-5.1); Protein, Total 6.6 g/dL (6.4-8.2); Prothrombin Time (Protime)PT. 19.5 SECONDS (11.7-14.9); Sodium Level 138 mmol/L (136-145)
[2021-11-30 08:38] LABS: Partial Thromboplast Time 30.4 Seconds (24.1-36.2)
[2021-11-30 08:50] LABS: Anisocytosis 2+; Differential Comment SCANNED
[2021-11-30 08:51] LABS: Macrocytosis 1+; Microcytosis 1+
[2021-11-30 09:04] LABS: Lactic Acid 2.3 mmol/L (0.4-1.9)
--- NOTE | 2021-11-30 09:04 | HP.PCM.HOS_ITS ---
HPI - General General Date of Admission: 11/30/21 Date of Service: 11/30/21 Chief Complaint: weakness HPI Narrative ERICKA SHELDON, is a 76 M with a PMH as outlined who presents via the ED on 11/30/2021 with a complaint of weakness and chills. He got up in the middle of the night to go to the bathroom and felt like he had chills and generalised weakness, with associated dry heaves. He denied any fever, cough, nausea, vomiting or diarrhea. Later, when he got up to go take a shower, he felt very weak and lethargic and had to let himself onto the floor. He also complained of redness and warmth of his right leg. He denied any trauma to his right leg. Vitals were temperature of 100.1F, HR of 105, BP of and respiratory rate of 24. He was saturating at 94% on room air. CBC showed wbc of 15.4, platelets of 1245 and hb of 13.3. INR was 1.7. Chemistry showed sodium of 138, Cr of 2.1 and lactic acid of 2.3. Total bilirubin was 1.3 and AST/ALT/ALP were elevated. CXR showed ill defined opacities within the lower lungs which may be secondary to atelectasis and/or pneumonia. He is being admitted to be managed for sepsis due to RLE cellulitis and probable pneumonia. He was admitted to the ICU on account of hypotension. [facility] Medical History Atherosclerosis of coronary artery of [place] heart without angina pectoris Atrial fibrillation Brantley's esophagus with esophagitis CAD (coronary artery disease) Chronic depression Chronic kidney disease, stage 3 Depression Essential hypertension GERD (gastroesophageal reflux disease) History of left heart catheterization (LHC) (~05/20/21) History of septic shock (04/02/16) Hyperlipidemia Iron deficiency anemia Obstructive sleep apnea Sleep apnea Home Medications apixaban 5 mg tablet (Eliquis) 5 mg PO BID blood thinner 11/07/18 [History Last Taken 06/02/21] atorvastatin 40 mg tablet 40 mg PO QHS cholesterol 11/07/18 [History Last Taken Unknown] pantoprazole 40 mg tablet,delayed release 40 mg PO DAILY gerd 11/07/18 [History Last Taken 09/10/20] paroxetine HCl 20 mg tablet 20 mg PO DAILY depression 11/07/18 [History Last Taken Unknown] trospium 20 mg tablet 20 mg PO BID bladder 07/18/19 [History Last Taken 12/03/20] carboxymethylcellulose sodium 1 % eye liquid gel drops 1 drp EACH EYE BID dry eyes 06/02/21 [History Last Taken Unknown] prednisolone acetate 1 % eye drops,suspension 1 drp EACH EYE TID eye drops 06/02/21 [History Last Taken Unknown] amiodarone 200 mg tablet 200 mg PO DAILYCM 30 days #30 tabs 06/24/21 [Rx Last Taken Unknown] acetaminophen 500 mg tablet 1,000 mg PO Q6H PRN 07/22/21 [History Last Taken Unknown] aspirin 81 mg tablet,delayed release (Adult Low Dose Aspirin) 81 mg PO DAILY 07/22/21 [History Last Taken Unknown] cholecalciferol (vitamin D3) 50 mcg (2,000 unit) tablet 50 mcg PO DAILY 07/22/21 [History Last Taken Unknown] cyanocobalamin (vitamin B-12) 1,000 mcg tablet 1,000 mcg PO BID 07/22/21 [ History Last Taken Unknown] metoprolol tartrate 50 mg tablet 50 mg PO BID #180 tabs 08/26/21 [Rx Last Taken Unknown] nitroglycerin 0.4 mg sublingual tablet 0.4 mg sublingual Q5M PRN 08/26/21 [History Last Taken Unknown] potassium klor-con 20 meq PO DAILY 08/26/21 [History Last Taken Unknown] divalproex 250 mg tablet,delayed release 250 mg PO BID 09/15/21 [History Last Taken Unknown] levothyroxine 25 mcg tablet 25 mcg PO DAILY 09/15/21 [History Last Taken Unknown] jnzyerht-xmg-wwfio acid 0.4 mg-lycopene 300 mcg-lutein 250 mcg tablet (Centrum Silver) 1 tab PO DAILY 09/15/21 [History Last Taken Unknown] furosemide 20 mg tablet 20 mg PO .COMPLEX 10/21/21 [History Last Taken Unknown] Allergy/AdvReac Type Severity Reaction Status Date / Time No Known Allergies Allergy Verified 11/30/21 07:18 Family History Father Cancer Lung Mother Heart disease Brother Heart disease CVA (cerebral vascular accident) Brother Heart disease Brother Heart disease Surgical History History of coronary artery bypass graft x 3 (~05/27/21) History of total left knee replacement History of total right knee replacement Stented coronary artery (04/14/07) Social History household members: spouse housing: apartment pets and animals: No Smoking Status: Never smoker alcohol intake: never substance use type: does not use caffeine: Yes Type: carbonated beverages Number of servings: 1 ROS Constitutional Constitutional: Reports fatigue, malaise, night sweats and weakness; Denies anorexia, change in weight, chills or fever(s) Eyes Eyes: Denies change in vision ENT HEENT: Denies dysphagia, headache(s) or sore throat Cardiovascular Cardiovascular: Reports lightheadedness; Denies chest pain, dyspnea on exertion, edema, orthopnea, palpitations, paroxysmal nocturnal dyspnea, rapid heart rate or syncope Respiratory/Chest Respiratory/Chest: Reports cough and dyspnea; Denies excessive phlegm production, hemoptysis, productive cough, shortness of breath at rest or shortness of breath with exertion Gastrointestinal Gastrointestinal: Denies abdominal pain, coffee ground emesis, constipation, nausea or vomiting Genitourinary Genitourinary: Denies burning urination, dysuria, hematuria, urinary frequency or urinary urgency Musculoskeletal Musculoskeletal: Denies arthralgias Neurologic Neurologic: Denies confusion, dizziness, focal weakness, headache(s), numbness or seizures Psychiatric Psychiatric: Denies anxiety Hematologic/Lymphatic Hematologic/Lymphatic: Denies anemia or easy bruising Vital Signs Vital Signs Vital Signs: 11/30/21 07:18 11/30/21 07:21 11/30/21 07:43 Temperature 100.1 F H 100.1 F H Temperature Source Temporal Temporal Pulse Rate 105 H 105 H Respiratory Rate 24 H 24 H Blood Pressure 105/70 105/70 Blood Pressure Mean 81 81 Pulse Ox 94 94 Oxygen Delivery Method Room Air Room Air Room Air Weight Weight: 256 lb 13.416 oz Body Mass Index (BMI) 35.8 Physical Exam Const alert, oriented x3, no apparent distress, average body habitus and healthy appearing General Appearance: cooperative Orientation / Consciousness: lethargic HEENT normocephalic, head/scalp atraumatic, hearing grossly normal bilaterally and moist oral mucous membranes Resp normal respiratory effort, no retractions, no use of accessory muscles and clear to auscultation bilaterally Cardio S1 normal heart sound, S2 normal heart sound and no murmurs Cardio Narrative: tachycardic, afib GI normal to inspection, nondistended, normoactive bowel sounds, soft to palpation, non-tender and non-distended Extremity Extremity Narrative: bialteral LE edema, RLE swollen and erythematous from ankle to above knee; area outlined with body marker Neuro oriented x3, CN's II-XII intact bilaterally and moves all extremities Sensorium / Orientation: awake and alert Motor Exam: strength 5/5 throughout Psych affect normal Results Lab / Micro Data Result Diagrams: 11/30/21 08:10 11/30/21 08:10 Labs: Laboratory Results - last 24 hr 11/30/21 08:10: WBC 15.4 H, RBC 5.21, Hgb 13.3, Hct 44.7, MCV 85.8, MCH 25.5 L, MCHC 29.8 L, RDW Std Deviation 73.5 H, RDW Coeff of Sylwia 23.9 H, Plt Count 145 L, MPV 10.3, Immature Gran % (Auto) 0.900, Neut % (Auto) 92.1 H, Lymph % (Auto) 2.2 L, [place] % (Auto) 4.6, Eos % (Auto) 0.1, Baso % (Auto) 0.1, Absolute Neuts (auto) 14.2 H, Absolute Lymphs (auto) 0.34 L, Nucleated RBC % 0, Differential Comment SCANNED, Anisocytosis 2+, Microcytosis 1+, Macrocytosis 1+ 11/30/21 08:10: PT 19.5 H, INR 1.7, APTT 30.4 11/30/21 08:10: Sodium 138, Potassium 3.9, Chloride 103, Carbon Dioxide 28.0, Anion Gap 7, BUN 40 H, Creatinine 2.10 H, Estim Creat Clear Calc 31.38, Est GFR (MDRD) Af Amer 40 L, Est GFR (MDRD) Non-Af 33 L, BUN/Creatinine Ratio 19.0, Glucose 129 H, Calcium 8.9, Total Bilirubin 1.30 H, AST 41 H, ALT 78 H, Alkaline Phosphatase 140 H, Total Protein 6.6, Albumin 3.5, Globulin 3.1, Albumin/Globulin Ratio 1.1 Radiology Impression Chest X-Ray 11/30/21 08:24 IMPRESSION: Ill-defined opacities within the lower lungs may be secondary to atelectasis and/or pneumonia. Electronically Signed: Paola Chapa MD at 8:44 EDT , Assessment & Plan Assessment/Plan (1) Cellulitis: (2) Sepsis: PLAN: Plan #Sepsis due to RLE cellulitis and probable pneumonia * Admit to ICU. * Patient has elevated lactic acid and elevated white count as well as being tachycardic. * Source of infection is likely right lower extremity cellulitis and probable pneumonia. * place on IV vancomycin and zosyn * hydrate with IVF per sepsis protocol * get blood and urine cultures * consult critical care as he is in ICU * Low blood pressure responded to fluids in the ED. Continue hydration with IV fluids. * get duplex of LEs * #Afib s/p maze procedure * Hold amiodarone and metoprolol on account of hypotension. * On Eliquis which he states has been compliant with. * #Hyperlipidemia: On statin #KODY on CKD stage IIIa * Creatinine is 2.10. Baseline creatinine is around 1.5. Likely due to sepsis. Hydrate gently with IV fluids and monitor. * #Elevated liver enzymes * Total bilirubin is 1.3 with AST and ALT as well as ALP elevated. * Likely due to sepsis. Will monitor for resolution. * He denies any abdominal pain. If it does not improve, will get gallbladder ultrasound tomorrow. #CAD: On aspirin and statin. Metoprolol held due to hypotension #Hypothyroidism: On Synthroid Due to prophylaxis: Already on Eliquis CODE STATUS: Full code * Patient tells me that he has a DNR CODE STATUS but in light of this acute illness, he says he wants CPR and intubation would want us to at least try and give him a chance to survive. Patient therefore elects to be full code. * Total [id number] time 18 minutes. * Total critical care time spent on patient: 51 minutes. Charges/Coding Procedures Hospitalists Procedures: [id number] Advncd Care Plan 30 Min (critical care 1st hour [id number])
--- NOTE | 2021-11-30 09:06 | NURSING ---
DR EMMANUEL AGOSTO
[2021-11-30 09:14] LABS: Bacteria 0 SEEN /hpf (None Seen); Mucous, Urine 0 SEEN /hpf (<or=2+); Squamous Epithelial Cells - UA 0 SEEN /hpf (0-5)
--- NOTE | 2021-11-30 09:17 | NURSING ---
Addendum entered by Sharon Martin 11/30/21 09:49: SEPSIS ADDED TO ADMISSION Original Note: MED SURG K[place]AM CELLULITIS OF RIGHT LOWER LEG, FEVER, WEAKNESS, DEHYDRATION
[2021-11-30 09:25] LABS: Color, Urine Yellow (Yellow); Glucose, Dipstick Normal (Normal); Ketone-Dipstick 5 mg/dl (Negative); Leukocyte Esterase-Dipstick 25 /ul (Negative); Nitrite-Dipstick Negative (Negative); Occult Blood-Urine 150 /ul (Negative); Protein-Dipstick 30 mg/dl (Negative); Urine Clarity Clear (Clear); Urine Urobilinogen 4 mg/dl (Normal)
[2021-11-30 09:28] LABS: Urine Bilirubin Dipstick 1 mg/dL (Negative)
[2021-11-30 09:35] LABS: Red Blood Cells-Urine 0-5 SEEN /hpf (0-5); White Blood Cells 0-5 SEEN /hpf (0-5)
--- NOTE | 2021-11-30 09:49 | ED.RN ---
WHEN PT WAS NOTED TO BE DRIFTING IN AND OUT OF SLEEP, PTS O2 SATS DECREASE TO 85% ON ROOM AIR. PT STATES HE HAS A HX OF SLEEP APNEA. 2L NC APPLIED. O2 SATS REMAIN BETWEEN 94-96%
--- NOTE | 2021-11-30 09:50 | ED.RN ---
DR AGOSTO NOTIFIED OF PT'S LOW BLOOD PRESSURE READINGS. VERBAL ORDER FOR ANOTHER LITER OF NORMAL SALINE OBTAINED. DR BENITEZ AWARE- SHE WAS AT THE BEDSIDE AT THE TIME OF VERBAL ORDER.
--- NOTE | 2021-11-30 10:13 | NURSING ---
CV ICU 202
--- NOTE | 2021-11-30 10:45 | ED.RN ---
REPORT CALLED TO ICU NURSE
--- NOTE | 2021-11-30 11:52 | VDLE_ITS ---
Reason For Study: Swelling RIGHT LEFT GSV is normal. GSV was previously harvested. CFV is compressible, spontaneous, competent CFV is compressible, spontaneous, competent, and demonstrates pulsatile venous flow. and demonstrates pulsatile venous flow. FV is compressible, spontaneous, competent FV is compressible, spontaneous, competent and demonstrates pulsatile venous flow. and demonstrates pulsatile venous flow. POP V is compressible, spontaneous, competent POP V is compressible, spontaneous, competent and demonstrates pulsatile venous flow. and demonstrates pulsatile venous flow. T/P Trunk is compressible. T/P Trunk is compressible. PTV is compressible. PTV is compressible. RT PerV is compressible. LT PerV is compressible. Procedure Exam performed portable in ICU/CCU. A preliminary report was called and/or faxed to ICU. VL/Venous Duplex US - Bry Extrem Interpretation Summary Deep veins of the bilateral lower extremity are patent and compressible segment ally. There is no evidence of bilateral lower extremity deep vein thrombosis. The right great sap henous vein appears patent and compressible segmentally. The left great saphenous vein was previous ly harvested Ordering Physician: Amy Espinosa Referring Physician: Wilbert Pradhan Chi Performed By: Brandy Johnson RVT
[2021-11-30 12:17] LABS: Reflex Lactate? Y
[2021-11-30 13:27] LABS: Lactic Acid 1.9 mmol/L (0.4-1.9)
[2021-11-30] MEDS: 0.9% Normal Saline 1,000 ML 150 ML IV ×2 (13:40→22:31)
--- NOTE | 2021-11-30 16:00 | PHA.PHARE_ITS ---
Consult Pharmacy has been consulted to manage selected antiobiotic: Vancomycin Type of Consult: New start Suspected Infection: Sepsis, Skin/Soft tissue, Pneumonia Labs: Sodium 138 mmol/L (136-145) 11/30/21 08:10 Potassium 3.9 mmol/L (3.5-5.1) 11/30/21 08:10 Chloride 103 mmol/L (98-107) 11/30/21 08:10 Carbon Dioxide 28.0 mmol/L (21.0-32.0) 11/30/21 08:10 Anion Gap 7 (5-15) 11/30/21 08:10 BUN 40 mg/dL (7-18) H 11/30/21 08:10 Creatinine 2.10 mg/dL (0.70-1.30) H 11/30/21 08:10 Est GFR (MDRD) Af Amer 40 mL/min (>60) L 11/30/21 08:10 Est GFR (MDRD) Non-Af 33 mL/min (>60) L 11/30/21 08:10 BUN/Creatinine Ratio 19.0 RATIO (10-20) 11/30/21 08:10 Glucose 129 mg/dL (74-106) H 11/30/21 08:10 Microbiology: Microbiology 11/30/21 12:42 Nasal Secretion SARS-CoV-2 Antigen (Rapid) - Final Goal Trough: 15-20 mcg/mL Pharmacy Plan for Drug Dosing: NEW START IV VANCOMYCIN Consulting Physician: Dr. Mikael Espinosa Indication: RLE Cellulitis (Sepsis), PNA Goal Trough: 15-20 SrCr: 2.10 (baseline ~1.8) CrCl: 38mls/min using an adjusted body weight of 92kg Comments: pt received a 2000mg (25mg/kg) loading dose on 11/30/21 at 1511 Vancomycin Dose: based on pts weight and current renal function, recommend an initial dose of 1500mg q24h starting 12/01/21 at 1500. trough before the 3rd d ose Pending Level: 12/02/21 at 1430 Pharmacy Service will continue to monitor and adjust dosing as required. Follow-Up Labs: Trough Vancomycin - 12/02/21 at 1430
[2021-11-30] MEDS: Aspirin E.C. 81 MG Tablet PO (18:50)
[2021-11-30] MEDS: prednisoLONE eye drops (5 mL) 1 DROP OPTH.BTL 1 DRP LEFT EYE (21:11)
[2021-11-30] MEDS: Glycerin/Hypromellose/PEG400 15 ml Bottle 1 DRP RIGHT EYE (21:12)
[2021-11-30] MEDS: Divalproex Sodium 250 MG Tablet PO (21:14)
[2021-11-30] MEDS: Atorvastatin Calcium 40 MG Tablet PO (21:14)
[2021-11-30] MEDS: Cyanocobalamin 500 MCG Tablet 1000 MCG PO (21:14)
[2021-11-30] MEDS: APIXABAN 5 MG TABLET PO (21:14)
[2021-12-01] VITALS (20 sets, daily range): BP systolic 106–139; BP diastolic 59–90; PULSE 72–110; RESP 17–29; TEMP 36.6–37.4; O2SAT 94–98
[2021-12-01 04:03] LABS: Absolute Lymphocyte Count 0.41 X10^3/uL (0.83-4.51); Absolute Neutrophil Count 9.1 X10^3/uL (2.0-7.7); Basophil# 0.02 X10^3/uL; Basophil% 0.2 % (0-1); Eosinophil# 0.04 X10^3/uL; Eosinophils% 0.4 % (0-5); Hematocrit 33.5 % (40-54); Hemoglobin 9.7 g/dL (13.0-16.5); Lymphocyte # 0.41 X10^3/ul (0.83-4.51); Lymphocyte % 3.9 % (19-41); Mean Corpuscular Hgb 25.3 pg (27.0-32.0); Mean Corpuscular Volume 87.2 fL (80-94); Mean Platelet Vol. 10.8 fl (6.2-12.0); Monocyte# 0.77 X10^3/uL; Monocyte% 7.4 % (0-10); NRBC Flagged by Analyzer 0 % (0-5); Neutrophil # 9.09 X10^3/uL (2.7-7.7); Neutrophil % 87.6 % (47-70); POSITIVE DIFFERENTIAL YES; POSITIVE MORPHOLOGY YES; Platelet Count 119 K/mm3 (150-450); RBC Distribution Width CV 23.8 % (11.6-14.6); RBC Distribution Width SD 75.7 fl (35.1-43.9); Red Blood Count 3.84 M/mm3 (4.6-6.2); White Blood Count 10.4 K/mm3 (4.4-11.0)
[2021-12-01 04:06] LABS: Differential Indicated SCAN CRITERIA MET
[2021-12-01 04:19] LABS: Anion Gap 6 (5-15); BUN 37 mg/dL (7-18); Calcium,Total 7.5 mg/dL (8.5-10.1); Chloride 109 mmol/L (98-107); Creatinine, Serum 1.68 mg/dL (0.70-1.30); EST Glomerular Filtration Rate 42 mL/min (>60); Est Glom Filt Rate - Afr Amer 51 mL/min (>60); Estimated Creatinine Clearance 39.22 ml/min; Glucose 104 mg/dL (74-106); Potassium 4.3 mmol/L (3.5-5.1); Sodium Level 140 mmol/L (136-145)
[2021-12-01 04:50] LABS: Differential Comment SCANNED; Ovalocyte 1+
[2021-12-01 04:51] LABS: Anisocytosis 2+
[2021-12-01 04:52] LABS: Microcytosis 1+
[2021-12-01] MEDS: 0.9% Saline Lock 10 ML Syringe IV ×2 (05:18→18:27)
[2021-12-01] MEDS: Levothyroxine 25 MCG TABLET PO (05:19)
[2021-12-01] MEDS: prednisoLONE eye drops (5 mL) 1 DROP OPTH.BTL 1 DRP LEFT EYE ×3 (05:20→21:30)
[2021-12-01] MEDS: Glycerin/Hypromellose/PEG400 15 ml Bottle 1 DRP RIGHT EYE ×3 (05:20→21:38)
--- NOTE | 2021-12-01 07:35 | CON.PCM.CC_ITS ---
Assessment & Plan Assessment/Plan (1) Sepsis: (2) Cellulitis: (3) History of chronic kidney disease: (4) History of coronary artery bypass graft x 3: (5) Atrial fibrillation: PLAN: Plan RECOMMENDATIONS: 1. Continue broad-spectrum antibiotics pending species and sensitivity 2. Wean supplemental oxygen as tolerated 3. Initiate baseline ASV with sleep 4. Potential transfer from the intensive care unit later today IMPRESSIONS: 1. Sepsis secondary to right lower extremity cellulitis and possible pneumonia Patient has responded well to fluid resuscitation. Patient does have gram-positive cocci growing in the blood. Await species and sensitivities as MRSA would be a concern. Patient has had improvement clinically with regression of erythema. Given lack of hypotension, likely okay to transfer to the PCU for further evaluation. 2. Chronic A. fib status post Maze procedure Patient is on anticoagulation at baseline. Low clinical suspicion for DVT given Eliquis therapy. Patient's amiodarone and metoprolol are currently on hold. These can likely be reinitiated in a stepwise fashion. Patient's rate is controlled at this time. 3. Acute kidney injury on CKD stage IIIa Patient presented with a creatinine of 2.1 with a baseline between 1.5 and 1.6. This would be an indication of endorgan damage related to problem #1. Patient appears to be responding well to therapy. No indication for renal replacement therapy at this time. 4. 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 Okay to continue with baseline ASV. Patient should bring in home machine if possible. Liver enzymes likely secondary to problem #1. Patient does remain on aspirin and a statin. HPI Consult Data Date of Consult: 12/01/21 HPI Narrative Reason for Consultation: Sepsis HPI Narrative: ERICKA SHELDON is a 76 M, with past medical history listed below and well-known to me from outpatient office, who presents to [facility] on 11/30/2021 secondary to generalized weakness, chills and dry heaves. Patient is on anticoagulation secondary to A. fib and states that he had to lower himself to the floor secondary to weakness. Patient denied any diarrhea, cough, dyspnea or syncope. Patient does report that he has had significant worsening in right lower extremity redness over the weekend. Patient had reported a blister on his toe previously. In the ER, patient was noted to have a temperature of 100.1 ?F, tachycardic at 105 bpm and slightly hypotensive at 105/70. Patient was saturating well on room air. Laboratory work-up showed a white blood cell count of 15.4, hemoglobin of 13.3 and an INR of 1.7. Creatinine was elevated at 2.1 (baseline approximately 1.6), and a glucose of 129. LFTs were slightly elevated and lactate was 2.3. UA was relatively unremarkable. Chest x-ray showed some atelectasis and a rhythm strip confirmed A. fib. Given patient's sepsis, patient was admitted to the intensive care unit for close monitoring. Since being in the intensive care unit, patient has had low-grade fevers and was requiring minimal nasal cannula oxygen. Patient has come back positive for gram-positive cocci in clusters on both blood cultures. Tony edges of inflamma tion have receded and patient subjectively feels improved. Patient is not reporting any nausea, vomiting or diarrhea. Patient does not report any trauma to the right lower extremity, but does state that he had a blister on the second toe previously and it ballooned over the weekend. Review of systems otherwise negative from a constitutional, HEENT, respiratory, cardiovascular, GI, genitourinary, musculoskeletal, skin, neurologic, psychiatric and hematologic system unless stated above. [facility] Medical History Atherosclerosis of coronary artery of ute heart without angina pectoris Atrial fibrillation Brantley's esophagus with esophagitis CAD (coronary artery disease) Chronic depression Chronic kidney disease, stage 3 Depression Essential hypertension GERD (gastroesophageal reflux disease) History of left heart catheterization (LHC) (~05/20/21) History of septic shock (04/02/16) Hyperlipidemia Iron deficiency anemia Obstructive sleep apnea Sleep apnea Home Medications apixaban 5 mg tablet (Eliquis) 5 mg PO BID blood thinner 11/07/18 [History Last Taken 06/02/21] atorvastatin 40 mg tablet 40 mg PO QHS cholesterol 11/07/18 [History Last Taken Unknown] pantoprazole 40 mg tablet,delayed release 40 mg PO DAILY gerd 11/07/18 [History Last Taken 09/10/20] trospium 20 mg tablet 20 mg PO BID bladder 07/18/19 [History Last Taken 12/03/20] carboxymethylcellulose sodium 1 % eye liquid gel drops 1 drp RIGHT EYE DAILY dry eyes 06/02/21 [History Last Taken Unknown] prednisolone acetate 1 % eye drops,suspension 1 drp RIGHT EYE TID eye drops 06/02/21 [History Last Taken Unknown] acetaminophen 500 mg tablet 1,000 mg PO Q6H PRN pain 07/22/21 [History Last Taken Unknown] aspirin 81 mg tablet,delayed release (Adult Low Dose Aspirin) 81 mg PO DAILY antiplatelet 07/22/21 [History Last Taken 11/29/21] cyanocobalamin (vitamin B-12) 1,000 mcg tablet 1,000 mcg PO BID vitamin 07/22/21 [History Last Taken Unknown] nitroglycerin 0.4 mg sublingual tablet 0.4 mg sublingual Q5M PRN Chest Pain 08/26/21 [History Last Taken Unknown] potassium klor-con 20 meq PO DAILY potassium replacement 08/26/21 [History Last Taken Unknown] divalproex 250 mg tablet,delayed release 250 mg PO BID mood, depression 09/15/21 [History Last Taken Unknown] levothyroxine 25 mcg tablet 25 mcg PO DAILY thyroid 09/15/21 [History Last Taken Unknown] amiodarone 200 mg tablet 200 mg PO DAILYCM Afib 11/30/21 [History Last Taken Unknown] fluoxetine 20 mg capsule 20 mg PO DAILY Check with primary doctor 11/30/21 [History Last Taken Unknown] furosemide 40 mg tablet 60 mg DAILY water pill 11/30/21 [History Last Taken Unknown] metoprolol tartrate 50 mg tablet 50 mg PO BID heart 11/30/21 [History Last Taken Unknown] Allergy/AdvReac Type Severity Reaction Status Date / Time No Known Allergies Allergy Verified 11/30/21 07:18 Family History Father Cancer Lung Mother Heart disease Brother Heart disease CVA (cerebral vascular accident) Brother Heart disease Brother Heart disease Surgical History History of coronary artery bypass graft x 3 (~05/27/21) History of total left knee replacement History of total right knee replacement Stented coronary artery (04/14/07) Social History household members: spouse housing: apartment pets and animals: No Smoking Status: Never smoker alcohol intake: never substance use type: does not use caffeine: Yes Type: carbonated beverages Number of servings: 1 ROS ROS Narrative See HPI Lab / Micro Data Attestation: I reviewed the patient's lab results. Result Diagrams: 12/01/21 03:31 12/01/21 03:31 Labs: Laboratory Results - last 24 hr 11/30/21 08:10: WBC 15.4 H, RBC 5.21, Hgb 13.3, Hct 44.7, MCV 85.8, MCH 25.5 L, MCHC 29.8 L, RDW Std Deviation 73.5 H, RDW Coeff of Sylwia 23.9 H, Plt Count 145 L, MPV 10.3, Immature Gran % (Auto) 0.900, Neut % (Auto) 92.1 H, Lymph % (Auto) 2.2 L, Carbon % (Auto) 4.6, Eos % (Auto) 0.1, Baso % (Auto) 0.1, Absolute Neuts (auto) 14.2 H, Absolute Lymphs (auto) 0.34 L, Nucleated RBC % 0, Differential Comment SCANNED, Anisocytosis 2+, Microcytosis 1+, Macrocytosis 1+ 11/30/21 08:10: PT 19.5 H, INR 1.7, APTT 30.4 11/30/21 08:10: Sodium 138, Potassium 3.9, Chloride 103, Carbon Dioxide 28.0, Anion Gap 7, BUN 40 H, Creatinine 2.10 H, Estim Creat Clear Calc 31.38, Est GFR (MDRD) Af Amer 40 L, Est GFR (MDRD) Non-Af 33 L, BUN/Creatinine Ratio 19.0, Glucose 129 H, Calcium 8.9, Total Bilirubin 1.30 H, AST 41 H, ALT 78 H, Alkaline Phosphatase 140 H, Total Protein 6.6, Albumin 3.5, Globulin 3.1, Albumin/Globulin Ratio 1.1 11/30/21 08:10: Lactic Acid 2.3 H* 11/30/21 09:05: Urine Color Yellow, Urine Clarity Clear, Urine pH 5.0, Ur Specific [place] 1.020, Urine Protein 30 H, Urine Glucose (UA) Normal, Urine Ketones 5 H, Urine Occult Blood 150 H, Urine Nitrite Negative, Urine Bilirubin 1 H, Urine Urobilinogen 4 H, Ur Leukocyte Esterase 25 H, Urine RBC 0-5 SEEN, Urine WBC 0-5 SEEN, Ur Squamous Epith Cells 0 SEEN, Urine Bacteria 0 SEEN, Urine Mucus 0 SEEN 11/30/21 12:55: Lactic Acid 1.9 12/01/21 03:31: WBC 10.4, RBC 3.84 L, Hgb 9.7 L, Hct 33.5 L, MCV 87.2, MCH 25.3 L, MCHC 29.0 L, RDW Std Deviation 75.7 H, RDW Coeff of Sylwia 23.8 H, Plt Count 119 L, MPV 10.8, Immature Gran % (Auto) 0.500, Neut % (Auto) 87.6 H, Lymph % (Auto) 3.9 L, Carbon % (Auto) 7.4, Eos % (Auto) 0.4, Baso % (Auto) 0.2, Absolute Neuts (auto) 9.1 H, Absolute Lymphs (auto) 0.41 L, Nucleated RBC % 0, Differential Comment SCANNED, Anisocytosis 2+, Microcytosis 1+, Ovalocytes 1+ 12/01/21 03:31: Sodium 140, Potassium 4.3, Chloride 109 H, Carbon Dioxide 25.0, Anion Gap 6, BUN 37 H, Creatinine 1.68 H, Estim Creat Clear Calc 39.22, Est GFR (MDRD) Af Amer 51 L, Est GFR (MDRD) Non-Af 42 L, BUN/Creatinine Ratio 22.0 H, Glucose 104, Calcium 7.5 L Micro: Microbiology 11/30/21 08:25 Blood Culture (Wb) - Anticubital Right Blood Culture - Preliminary 11/30/21 08:10 Blood Culture (Wb) - Anticubital Right Blood Culture - Preliminary 11/30/21 12:42 Nasal Secretion SARS-CoV-2 Antigen (Rapid) - Final Rhythm Strip Rhythm Strip: A-fib Rate: 98 Ectopy: PVC(s) Radiology Impression Chest X-Ray 11/30/21 08:24 IMPRESSION: Ill-defined opacities within the lower lungs may be secondary to atelectasis and/or pneumonia. Electronically Signed: Paola Chapa MD at 8:44 EDT , Charges/Coding Visit Charges Inpatient E&M: 01034 Init Hosp L3
--- NOTE | 2021-12-01 08:48 | PN.HOSP_ITS ---
Subjective Subjective Follow-up up on sepsis due to right lower extremity cellulitis/pneumonia: Patient was seen and examined. Patient stable overnight. No acute events. He denied any dizziness or palpitations. Patient is afebrile today. Objective Data Objective Data Vital Signs: Vital Signs Temp Pulse Resp BP Pulse Ox O2 Del Method O2 Flow Rate 99.0 F 84 20 H 128/81 H 98 Nasal Cannula 2 12/01/21 08:00 12/01/21 08:00 12/01/21 08:00 12/01/21 08:00 12/01/21 08:00 12/01/21 08:39 12/01/21 08:39 Oxygen Flow Rate (L/min) 2 Oxygen Delivery Method Nasal Cannula Weight: 122.1 kg Body Mass Index (BMI) 36.0 Intake & Output: Intake and Output for Last 24 Hours 11/29/21 11/30/21 12/01/21 23:59 23:59 23:59 Intake Total 5679.5 / 5679.5 1150 / 1150 Output Total 180 / 180 550 / 550 Balance 5499.5 / 5499.5 600 / 600 Lab / Micro Data Result Diagrams: 12/01/21 03:31 12/01/21 03:31 Labs: Laboratory Results - last 24 hr 11/30/21 08:10: Differential Comment SCANNED, Anisocytosis 2+, Microcytosis 1+, Macrocytosis 1+ 11/30/21 08:10: Lactic Acid 2.3 H* 11/30/21 09:05: Urine Color Yellow, Urine Clarity Clear, Urine pH 5.0, Ur Specific [place] 1.020, Urine Protein 30 H, Urine Glucose (UA) Normal, Urine Ketones 5 H, Urine Occult Blood 150 H, Urine Nitrite Negative, Urine Bilirubin 1 H, Urine Urobilinogen 4 H, Ur Leukocyte Esterase 25 H, Urine RBC 0-5 SEEN, Urine WBC 0-5 SEEN, Ur Squamous Epith Cells 0 SEEN, Urine Bacteria 0 SEEN, Urine Mucus 0 SEEN 11/30/21 12:55: Lactic Acid 1.9 12/01/21 03:31: WBC 10.4, RBC 3.84 L, Hgb 9.7 L, Hct 33.5 L, MCV 87.2, MCH 25.3 L, MCHC 29.0 L, RDW Std Deviation 75.7 H, RDW Coeff of Sylwia 23.8 H, Plt Count 119 L, MPV 10.8, Immature Gran % (Auto) 0.500, Neut % (Auto) 87.6 H, Lymph % (Auto) 3.9 L, [place] % (Auto) 7.4, Eos % (Auto) 0.4, Baso % (Auto) 0.2, Absolute Neuts (auto) 9.1 H, Absolute Lymphs (auto) 0.41 L, Nucleated RBC % 0, Differential Comment SCANNED, Anisocytosis 2+, Microcytosis 1+, Ovalocytes 1+ 12/01/21 03:31: Sodium 140, Potassium 4.3, Chloride 109 H, Carbon Dioxide 25.0, Anion Gap 6, BUN 37 H, Creatinine 1.68 H, Estim Creat Clear Calc 39.22, Est GFR (MDRD) Af Amer 51 L, Est GFR (MDRD) Non-Af 42 L, BUN/Creatinine Ratio 22.0 H, Glucose 104, Calcium 7.5 L Micro: Microbiology 11/30/21 08:10 Blood Culture (Wb) - Anticubital Right Blood Culture - Preliminary 11/30/21 08:25 Blood Culture (Wb) - Anticubital Right Blood Culture - Preliminary 11/30/21 12:42 Nasal Secretion SARS-CoV-2 Antigen (Rapid) - Final Rhythm Strip Rhythm Strip: A-fib Rate: 98 Ectopy: PVC(s) Physical Exam Narrative Physical exam: General: Alert, Oriented x3, Cooperative, obese HEENT: Atraumatic Oral: Moist Mucosa Neck: Supple Lungs:Diminished to auscultation Cardiovascular: HS I+II, regular, no murmurs Abdomen: Bowel Sounds Present, Soft, Non Tender Extremities: Anarsarca, edema of hands, bilateral leg edema +2, RLE erythema and differential warmth, not gone beyond the markings of the skin Skin: No rashes, No breakdown Neurological: Grossly intact Psych/Mental Status: Appropriate Assessment & Plan Assessment/Plan (1) Sepsis: (2) Cellulitis: PLAN: Plan 1.Sepsis secondary to acute severe right lower extremity cellulitis/pneumonia/gram positive cocci bacteremia Patient's vitals appears stable -did not require pressors overnight Blood cultures growing gram-positive cocci WBC today is 10.4, down from 15.4 Patient's right lower extremity cellulitis still appears very severe Continue on IV vancomycin and Zosyn Consult ID on account of bacteremia 2.Acute hypoxia, likely secondary to probable pneumonia/atelectasis Admitting chest/per showed ill-defined opacities within the lower lungs suggestive of atelectasis/pneumonia Patient is on 2L oxygen Continue to wean off for SPO2 more than 94% 3.KODY on CKD stage IIIa, improved Admitting creatinine was 2.17, creatinine 1.68 Continue to trend 4.Chronic A. fib, status post maze procedure, Restart metoprolol and amiodarone Continue on Eliquis 5.CAD status post recent CABG, ischemic cardiomyopathy, EF 50% Patient appears fluid overloaded, will give Lasix IV 40 mg twice daily x24 hours and resume oral Lasix from tomorrow Continue as needed, statin 6.Hypothyroidism, continue Synthroid 7.DVT prophylaxis?on Eliquis Disposition: Transfer to WBC count is 10.4U Charges/Coding Visit Charges Inpatient E&M: 23658 Subs Hosp L3
[2021-12-01] MEDS: Aspirin E.C. 81 MG Tablet PO (09:02)
[2021-12-01] MEDS: Potassium Chloride Oral Tablet 20 MEQ PO (09:02)
[2021-12-01] MEDS: Tolterodine Tartrate 2 MG CAP.SA PO (09:03)
--- NOTE | 2021-12-01 10:05 | CASEMGMT ---
TONY GILLESPIE Face to Face with patient for initial transition planning/care coordination assessment. TONY GILLESPIE introduced self and role at [facility]. Patient lying in bed, alert and oriented. Patient willing to participate in assessment and is able to answer all questions appropriately. Care providers, pharmacy, and demographics verified. Patient wishes to discharge home, will monitor for HHC pending progress with therapy. Patient states he has no further needs or concerns at this time. CM to follow for discharge planning needs that may arise. PCP: Lorne Specialists: Rhett, hot braider; Cierra, human resources consultant Preferred Pharmacy: [facility] Insurance: [email or web address], [employer] other Prescription Benefit: yes Living Will/HPOA: yes, Zaynab Gan LNOK: Living Arrangements: Patient lives with in a first floor apartment with no steps to enter. Patient states he is independent at home. Transportation: self, daughter, son DME/HHC: Patient states he has shower chair, grab bars, walker, wheelchair, pulse ox, and bipap that he does not wear at home. Patient states he was to be setup with ASV but it has not been delivered yet. TONY GILLESPIE updated Dr. Delaney. No previous HHC or SNF. Disposition Plan: Patient to discharge home with family support and follow-up plans in place. Brandy MATIAS, RN, CM
[2021-12-01] MEDS: Cyanocobalamin 500 MCG Tablet 1000 MCG PO ×2 (10:06→21:28)
[2021-12-01] MEDS: Pantoprazole Sodium 40 MG Tablet PO (10:06)
[2021-12-01] MEDS: FLUoxetine 20 MG Capsule PO (10:06)
[2021-12-01] MEDS: APIXABAN 5 MG TABLET PO ×2 (10:07→21:27)
[2021-12-01] MEDS: Divalproex Sodium 250 MG Tablet PO ×2 (10:07→21:27)
[2021-12-01] MEDS: Furosemide 40 MG/4 ML Vial IV ×2 (10:07→18:27)
--- NOTE | 2021-12-01 12:00 | CASEMGMT ---
OTNY GILLESPIE called De to inquire about ASV setup. Per De no order received. TONY GILLESPIE called Dr. Delaney's office to inquire about order for ASV. TONY GILLESPIE updated Dr. Delaney. CM will continue to follow this patient and plan for a safe discharge.
[2021-12-01] MEDS: Metoprolol Tartrate 50 MG Tablet PO ×2 (13:03→21:28)
--- NOTE | 2021-12-01 14:27 | CON.PCM.ID_ITS ---
Assessment & Plan Assessment/Plan (1) Sepsis: PLAN: Unclear source. Chronic edema and RLE skin changes, mild redness and warmth. Possible pneumonia. Also with poor dentition, multiple cracked/rotten/sore teeth in jaw. Will check dental xrays. On vanc/zosyn, feeling better. 1 of 2 bcx with MRSE per pcr, so far consistent with cont amination. Covid neg here. Cont with empiric abx for now. Will follow, thank you HPI Consult Data Date of Consult: 12/01/21 HPI Narrative Reason for Consultation: sepsis HPI Narrative: ERICKA SHELDON, is a 76 M who presented 11/30 after waking up that AM with rigors, weakness, unsteadiness at home. Chronic BLE redness, R more than L. No new leg pain or drainage. Had some n/v, some cough. Came to ED, admitted to icu with v anc/zosyn. Single bcx now with CoNS. Feeling better today. Full ROS performed and neg except as noted above. [facility] Medical History Atherosclerosis of coronary artery of lime heart without angina pectoris Atrial fibrillation Brantley's esophagus with esophagitis CAD (coronary artery disease) Chronic depression Chronic kidney disease, stage 3 Depression Essential hypertension GERD (gastroesophageal reflux disease) History of left heart catheterization (LHC) (~05/20/21) History of septic shock (04/02/16) Hyperlipidemia Iron deficiency anemia Obstructive sleep apnea Sleep apnea Home Medications apixaban 5 mg tablet (Eliquis) 5 mg PO BID blood thinner 11/07/18 [History Last Taken 06/02/21] atorvastatin 40 mg tablet 40 mg PO QHS cholesterol 11/07/18 [History Last Taken Unknown] pantoprazole 40 mg tablet,delayed release 40 mg PO DAILY gerd 11/07/18 [History Last Taken 09/10/20] trospium 20 mg tablet 20 mg PO BID bladder 07/18/19 [History Last Taken 12/03/20] carboxymethylcellulose sodium 1 % eye liquid gel drops 1 drp RIGHT EYE DAILY dry eyes 06/02/21 [History Last Taken Unknown] prednisolone acetate 1 % eye drops,suspension 1 drp RIGHT EYE TID eye drops 06/02/21 [History Last Taken Unknown] acetaminophen 500 mg tablet 1,000 mg PO Q6H PRN pain 07/22/21 [History Last Taken Unknown] aspirin 81 mg tablet,delayed release (Adult Low Dose Aspirin) 81 mg PO DAILY antiplatelet 07/22/21 [History Last Taken 11/29/21] cyanocobalamin (vitamin B-12) 1,000 mcg tablet 1,000 mcg PO BID vitamin 07/22/21 [History Last Taken Unknown] nitroglycerin 0.4 mg sublingual tablet 0.4 mg sublingual Q5M PRN Chest Pain 08/26/21 [History Last Taken Unknown] potassium klor-con 20 meq PO DAILY potassium replacement 08/26/21 [History Last Taken Unknown] divalproex 250 mg tablet,delayed release 250 mg PO BID mood, depression 09/15/21 [History Last Taken Unknown] levothyroxine 25 mcg tablet 25 mcg PO DAILY thyroid 09/15/21 [History Last Taken Unknown] amiodarone 200 mg tablet 200 mg PO DAILYCM Afib 11/30/21 [History Last Taken Unknown] fluoxetine 20 mg capsule 20 mg PO DAILY Check with primary doctor 11/30/21 [History Last Taken Unknown] furosemide 40 mg tablet 60 mg DAILY water pill 11/30/21 [History Last Taken Unknown] metoprolol tartrate 50 mg tablet 50 mg PO BID heart 11/30/21 [History Last Taken Unknown] Allergy/AdvReac Type Severity Reaction Status Date / Time No Known Allergies Allergy Verified 11/30/21 07:18 Family History Father Cancer Lung Mother Heart disease Brother Heart disease CVA (cerebral vascular accident) Brother Heart disease Brother Heart disease Surgical History History of coronary artery bypass graft x 3 (~05/27/21) History of total left knee replacement History of total right knee replacement Stented coronary artery (04/14/07) Social History household members: spouse housing: apartment pets and animals: No Smoking Status: Never smoker alcohol intake: never substance use type: does not use caffeine: Yes Type: carbonated beverages Number of servings: 1 Physical Exam Const alert, oriented x3 and no apparent distress General Appearance: cooperative and well developed HEENT normocephalic and head/scalp atraumatic Eyes PERRL and EOMs intact bilaterally Neck supple and No nodes Resp normal air movement and clear to auscultation bilaterally Cardio no murmurs Rate: tachycardic GI soft to palpation, non-tender and non-distended Extremity General Extremity: edema Skin Skin Narrative: RLE chronic erythema and skin changes Neuro CN's II-XII intact bilaterally Lab / Micro Data Attestation: I reviewed the patient's lab results. Result Diagrams: 12/01/21 03:31 12/01/21 03:31 Labs: Laboratory Results - last 24 hr 12/01/21 03:31: WBC 10.4, RBC 3.84 L, Hgb 9.7 L, Hct 33.5 L, MCV 87.2, MCH 25.3 L, MCHC 29.0 L, RDW Std Deviation 75.7 H, RDW Coeff of Sylwia 23.8 H, Plt Count 119 L, MPV 10.8, Immature Gran % (Auto) 0.500, Neut % (Auto) 87.6 H, Lymph % (Auto) 3.9 L, [place] % (Auto) 7.4, Eos % (Auto) 0.4, Baso % (Auto) 0.2, Absolute Neuts (auto) 9.1 H, Absolute Lymphs (auto) 0.41 L, Nucleated RBC % 0, Differential Comment SCANNED, Anisocytosis 2+, Microcytosis 1+, Ovalocytes 1+ 12/01/21 03:31: Sodium 140, Potassium 4.3, Chloride 109 H, Carbon Dioxide 25.0, Anion Gap 6, BUN 37 H, Creatinine 1.68 H, Estim Creat Clear Calc 39.22, Est GFR (MDRD) Af Amer 51 L, Est GFR (MDRD) Non-Af 42 L, BUN/Creatinine Ratio 22.0 H, Glucose 104, Calcium 7.5 L Micro: Microbiology 11/30/21 09:05 Urine, Clean Catch Urine Culture - Preliminary Culture exhibits no growth. 11/30/21 08:10 Blood Culture (Wb) - Anticubital Right Bacteria Detection (PCR) - Final Staphylococcus epidermidis mecA Resistance Marker 11/30/21 08:10 Blood Culture (Wb) - Anticubital Right Blood Culture - Preliminary Staphylococcus epidermidis mecA Resistance Marker 11/30/21 08:25 Blood Culture (Wb) - Anticubital Right Blood Culture - Preliminary 11/30/21 12:42 Nasal Secretion SARS-CoV-2 Antigen (Rapid) - Final Rhythm Strip Rhythm Strip: A-fib Rate: 98 Ectopy: PVC(s)
--- NOTE | 2021-12-01 14:50 | RAD_ITS ---
EXAM: XR MANDIBLE COMPLETE, 4 OR MORE VIEWS CLINICAL INDICATION: tooth pain TECHNIQUE: Frontal, oblique and lateral views of the mandible. This report was created using [employer] (acquired by [employer]) report generation technology. COMPARISON: None. FINDINGS: DENTAL: No acute findings. BONES/JOINTS: Unremarkable. No fracture. No subluxation. No sclerotic or destructive changes observed. SOFT TISSUES: Unremarkable. No soft tissue swelling or gas. No radiopaque foreign body. RAD/Mandible Min 4 Views IMPRESSION: Negative mandible x-rays. Electronically Signed: Austin Humphreys MD at 17:26 EDT ,
--- NOTE | 2021-12-01 15:50 | CASEMGMT ---
Received call back from Dr. Delaney's office. Order for ASV was placed with [facility] in October. Dr. Delaney's office inquired with [facility] on 11/27/21 and patient is first on wait list to receive ASV.
[2021-12-01] MEDS: Atorvastatin Calcium 40 MG Tablet PO (21:28)
[2021-12-02] VITALS (9 sets, daily range): BP systolic 121–151; BP diastolic 67–91; PULSE 65–84; RESP 18–20; TEMP 36.2–36.8; O2SAT 96–97
[2021-12-02] MEDS: Levothyroxine 25 MCG TABLET PO (05:49)
[2021-12-02] MEDS: prednisoLONE eye drops (5 mL) 1 DROP OPTH.BTL 1 DRP LEFT EYE ×3 (05:53→21:04)
[2021-12-02] MEDS: Glycerin/Hypromellose/PEG400 15 ml Bottle 1 DRP RIGHT EYE ×2 (05:54→21:04)
[2021-12-02 06:25] LABS: Absolute Lymphocyte Count 0.56 X10^3/uL (0.83-4.51); Absolute Neutrophil Count 5.9 X10^3/uL (2.0-7.7); Basophil# 0.03 X10^3/uL; Basophil% 0.4 % (0-1); Eosinophil# 0.13 X10^3/uL; Eosinophils% 1.8 % (0-5); Hematocrit 36.1 % (40-54); Hemoglobin 10.5 g/dL (13.0-16.5); Lymphocyte # 0.56 X10^3/ul (0.83-4.51); Lymphocyte % 7.7 % (19-41); Mean Corp Hgb Conc 29.1 g/dL (32-36); Mean Platelet Vol. 10.7 fl (6.2-12.0); Monocyte# 0.71 X10^3/uL; Monocyte% 9.7 % (0-10); NRBC Flagged by Analyzer 0 % (0-5); Neutrophil # 5.85 X10^3/uL (2.7-7.7); POSITIVE DIFFERENTIAL YES; POSITIVE MORPHOLOGY YES; Platelet Count 112 K/mm3 (150-450); RBC Distribution Width CV 23.4 % (11.6-14.6); RBC Distribution Width SD 73.7 fl (35.1-43.9); White Blood Count 7.3 K/mm3 (4.4-11.0)
[2021-12-02 06:39] LABS: Differential Indicated SCAN CRITERIA MET
[2021-12-02 06:52] LABS: ALB/GLOB Ratio 0.8 RATIO (0.9-2.4); AST(SGOT) 21 U/L (15-37); Alanine Aminotransfer ALT/SGPT 44 U/L (16-61); Albumin, Serum 2.4 g/dL (3.2-5.0); Alkaline Phosphatase 83 U/L (45-117); Anion Gap 6 (5-15); BUN 36 mg/dL (7-18); BUN/Creat Ratio 21.1 RATIO (10-20); Calcium,Total 8.2 mg/dL (8.5-10.1); Chloride 110 mmol/L (98-107); Creatinine, Serum 1.71 mg/dL (0.70-1.30); EST Glomerular Filtration Rate 41 mL/min (>60); Est Glom Filt Rate - Afr Amer 50 mL/min (>60); Estimated Creatinine Clearance 38.53 ml/min; Globulin 2.9 g/dL (2.2-4.2); Glucose 111 mg/dL (74-106); Potassium 3.7 mmol/L (3.5-5.1); Protein, Total 5.3 g/dL (6.4-8.2); Sodium Level 142 mmol/L (136-145)
[2021-12-02 07:00] LABS: Anisocytosis 3+; Platelet Estimate SLT DEC (ADEQ)
--- NOTE | 2021-12-02 08:54 | PN.CC_ITS ---
Assessment & Plan Assessment/Plan (1) Sepsis: (2) Cellulitis: (3) History of chronic kidney disease: (4) History of coronary artery bypass graft x 3: (5) Atrial fibrillation: PLAN: Plan RECOMMENDATIONS: 1. Antibiotics per infectious disease 2. ASV with sleep 3. Okay to reinitiate baseline amiodarone and metoprolol in a stepwise fashion 4. Hemodynamically stable on room air. Will sign off from a critical care perspective IMPRESSIONS: 1. Sepsis secondary to right lower extremity cellulitis and possible pneumonia Patient has responded well to fluid resuscitation. Patient does have gram-positive cocci consistent with staph epidermidis growing in the blood. Infectious diseases following. Patient has had improvement clinically with regression of erythema. Given lack of hypotension, likely okay to reinitiate amiodarone and beta-yulia. 2. Chronic A. fib status post Maze procedure Patient is on anticoagulation at baseline. Low clinical suspicion for DVT given Eliquis therapy. Patient's amiodarone and metoprolol are currently on hold. These can likely be reinitiated in a stepwise fashion. Patient's rate is controlled at this time. 3. Acute kidney injury on CKD stage IIIa Patient presented with a creatinine of 2.1 with a baseline between 1.5 and 1.6. This would be an indication of endorgan damage related to problem #1. Patient appears to be responding well to therapy. No indication for renal replacement therapy at this time. 4. 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 Okay to continue with baseline ASV. Patient should bring in home machine if possible. Liver enzymes likely secondary to problem #1. Patient does remain on aspirin and a statin. Subjective Subjective Patient did well overnight. No acute issues were reported. Patient states that he is doing fine and is not reporting any significant right lower extremity pain. Patient has not been out of bed to test strength. Patient is not reporting any cough or respiratory complaints. Objective Data Objective Data Vital Signs: Vital Signs Temp Pulse Resp BP Pulse Ox O2 Del Method O2 Flow Rate 36.3 C L 65 18 151/86 H 96 Room Air 2 12/02/21 03:26 12/02/21 03:26 12/02/21 03:26 12/02/21 03:26 12/02/21 03:26 12/02/21 03:31 12/01/21 08:39 Oxygen Flow Rate (L/min) 2 Oxygen Delivery Method Room Air Weight: 118.5 kg Body Mass Index (BMI) 36.0 Intake & Output: Intake and Output for Last 24 Hours 11/30/21 12/01/21 12/02/21 23:59 23:59 23:59 Intake Total 5679.5 / 5679.5 2380 / 2380 170 / 170 Output Total 180 / 180 2925 / 2925 625 / 625 Balance 5499.5 / 5499.5 -545 / -545 -455 / -455 Lab / Micro Data Attestation: I reviewed the patient's lab results. Result Diagrams: 12/02/21 05:23 12/02/21 05:23 Labs: Laboratory Results - last 24 hr 12/02/21 05:23: WBC 7.3, RBC 4.20 L, Hgb 10.5 L, Hct 36.1 L, MCV 86.0, MCH 25.0 L, MCHC 29.1 L, RDW Std Deviation 73.7 H, RDW Coeff of Sylwia 23.4 H, Plt Count 112 L, MPV 10.7, Immature Gran % (Auto) 0.400, Neut % (Auto) 80.0 H, Lymph % (Auto) 7.7 L, [place] % (Auto) 9.7, Eos % (Auto) 1.8, Baso % (Auto) 0.4, Absolute Neuts (auto) 5.9, Absolute Lymphs (auto) 0.56 L, Nucleated RBC % 0, Platelet Estimate SLT DEC, Anisocytosis 3+ 12/02/21 05:23: Sodium 142, Potassium 3.7, Chloride 110 H, Carbon Dioxide 26.0, Anion Gap 6, BUN 36 H, Creatinine 1.71 H, Estim Creat Clear Calc 38.53, Est GFR (MDRD) Af Amer 50 L, Est GFR (MDRD) Non-Af 41 L, BUN/Creatinine Ratio 21.1 H, Glucose 111 H, Calcium 8.2 L, Total Bilirubin 0.60, AST 21, ALT 44, Alkaline Phosphatase 83, Total Protein 5.3 L, Albumin 2.4 L, Globulin 2.9, Albumin/Globulin Ratio 0.8 L Micro: Microbiology 11/30/21 08:25 Blood Culture (Wb) - Anticubital Right Blood Culture - Final Staphylococcus species 11/30/21 08:10 Blood Culture (Wb) - Anticubital Right Bacteria Detection (PCR) - Final Staphylococcus epidermidis mecA Resistance Marker 11/30/21 08:10 Blood Culture (Wb) - Anticubital Right Blood Culture - Preliminary Staphylococcus epidermidis mecA Resistance Marker 11/30/21 09:05 Urine, Clean Catch Urine Culture - Final Culture exhibits no growth. 11/30/21 12:42 Nasal Secretion SARS-CoV-2 Antigen (Rapid) - Final Radiography Diagnostic Testing: Radiology Impression Venous Doppler Study 11/30/21 11:52 Interpretation Summary Deep veins of the bilateral lower extremity are patent and compressible segmentally. There is no evidence of bilateral lower extremity deep vein thrombosis. The right great saphenous vein appears patent and compressible segmentally. The left great saphenous vein was previousl y harvested Ordering Physician: Amy Espinosa Referring Physician: Wilbert Pradhan Chi Performed By: Brandy Johnson RVT Mandible X-Ray 12/01/21 14:50 IMPRESSION: Negative mandible x-rays. Electronically Signed: Austin Humphreys MD at 17:26 EDT , Rhythm Strip Rhythm Strip: A-fib Rate: 98 Ectopy: PVC(s) Physical Exam Const alert, oriented x3 and no apparent distress Constitutional Narrative: No conversational dyspnea General Appearance: cooperative and well developed HEENT normocephalic and head/scalp atraumatic Eyes PERRL and EOMs intact bilaterally Neck supple and No nodes Resp normal air movement and clear to auscultation bilaterally Auscultation: Negative for rales, rhonchi or wheezes Cardio regular rate, no murmurs, no rub and no gallops GI soft to palpation, non-tender and non-distended Extremity General Extremity: edema Skin Skin Narrative: RLE with significant erythema overlapping chronic venous stasis changes. There does appear to be regression in erythema compared to yesterday Neuro oriented x3, CN's II-XII intact bilaterally and moves all extremities Psych cooperative and affect normal Charges/Coding Visit Charges Inpatient E&M: 62041 Subs Hosp L2
[2021-12-02] MEDS: Cyanocobalamin 500 MCG Tablet 1000 MCG PO ×2 (09:03→21:06)
[2021-12-02] MEDS: Amiodarone 200 MG Tablet PO (09:03)
[2021-12-02] MEDS: FLUoxetine 20 MG Capsule PO (09:04)
[2021-12-02] MEDS: Potassium Chloride Oral Tablet 20 MEQ PO (09:04)
[2021-12-02] MEDS: Aspirin E.C. 81 MG Tablet PO (09:04)
[2021-12-02] MEDS: Metoprolol Tartrate 50 MG Tablet PO ×2 (09:04→21:06)
[2021-12-02] MEDS: Tolterodine Tartrate 2 MG CAP.SA PO (09:04)
[2021-12-02] MEDS: Pantoprazole Sodium 40 MG Tablet PO (09:04)
[2021-12-02] MEDS: APIXABAN 5 MG TABLET PO ×2 (09:04→21:05)
[2021-12-02] MEDS: Divalproex Sodium 250 MG Tablet PO ×2 (09:05→21:06)
[2021-12-02] MEDS: Furosemide 40 MG/4 ML Vial IV ×2 (09:05→18:33)
--- NOTE | 2021-12-02 10:13 | PCM.PN.ID ---
Physical Exam Narrative Feeling much better, no fever, no n/v/d. Const alert and no apparent distress Resp normal air movement and clear to auscultation bilaterally Cardio regular rate and regular rhythm GI soft to palpation, non-tender and non-distended Skin Skin Narrative: some redness in legs ID ID: Route of nutrition/ use of supplements: [] Nutritional Intake: [] IV Site: [] Pal Catheter: [] Assessment & Plan Assessment/Plan (1) Sepsis: PLAN: Unclear source. Chronic edema and RLE skin changes, mild redness and warmth. Possible pneumonia. Also with poor dentition, multiple cracked/rotten/sore teeth in jaw. Neg dental xrays. On vanc/zosyn, feeling better. 2 of 2 bcx with staph, MRSE per pcr, so far consistent with true bacteremia. Covid neg here. Cont with empiric abx for now, likely can go home on po abx soon. Will follow
--- NOTE | 2021-12-02 10:19 | PN.HOSP_ITS ---
Subjective Subjective Follow-up on sepsis due to right lower extremity cellulitis/pneumonia: Patient was seen and examined. He was sitting up in a chair. He feels much improved. Right lower extremity erythema and differential warmth improvement; much of erythema still persists. He has remained afebrile. Blood cultures growing MRSE. Objective Data Objective Data Vital Signs: Vital Signs Temp Pulse Resp BP Pulse Ox O2 Del Method O2 Flow Rate 97.3 F L 84 18 124/68 H 96 Room Air 2 12/02/21 03:26 12/02/21 09:04 12/02/21 03:26 12/02/21 09:04 12/02/21 03:26 12/02/21 07:31 12/01/21 08:39 Oxygen Flow Rate (L/min) 2 Oxygen Delivery Method Room Air Weight: 118.5 kg Body Mass Index (BMI) 36.0 Intake & Output: Intake and Output for Last 24 Hours 11/30/21 12/01/21 12/02/21 23:59 23:59 23:59 Intake Total 5679.5 / 5679.5 2380 / 2380 170 / 170 Output Total 180 / 180 2925 / 2925 625 / 625 Balance 5499.5 / 5499.5 -545 / -545 -455 / -455 Lab / Micro Data Result Diagrams: 12/02/21 05:23 12/02/21 05:23 Labs: Laboratory Results - last 24 hr 12/02/21 05:23: WBC 7.3, RBC 4.20 L, Hgb 10.5 L, Hct 36.1 L, MCV 86.0, MCH 25.0 L, MCHC 29.1 L, RDW Std Deviation 73.7 H, RDW Coeff of Sylwia 23.4 H, Plt Count 112 L, MPV 10.7, Immature Gran % (Auto) 0.400, Neut % (Auto) 80.0 H, Lymph % (Auto) 7.7 L, [place] % (Auto) 9.7, Eos % (Auto) 1.8, Baso % (Auto) 0.4, Absolute Neuts (auto) 5.9, Absolute Lymphs (auto) 0.56 L, Nucleated RBC % 0, Platelet Estimate SLT DEC, Anisocytosis 3+ 12/02/21 05:23: Sodium 142, Potassium 3.7, Chloride 110 H, Carbon Dioxide 26.0, Anion Gap 6, BUN 36 H, Creatinine 1.71 H, Estim Creat Clear Calc 38.53, Est GFR (MDRD) Af Amer 50 L, Est GFR (MDRD) Non-Af 41 L, BUN/Creatinine Ratio 21.1 H, Glucose 111 H, Calcium 8.2 L, Total Bilirubin 0.60, AST 21, ALT 44, Alkaline Phosphatase 83, Total Protein 5.3 L, Albumin 2.4 L, Globulin 2.9, Albumin/Globulin Ratio 0.8 L Micro: Microbiology 11/30/21 08:25 Blood Culture (Wb) - Anticubital Right Blood Culture - Final Staphylococcus species 11/30/21 08:10 Blood Culture (Wb) - Anticubital Right Bacteria Detection (P CR) - Final Staphylococcus epidermidis mecA Resistance Marker 11/30/21 08:10 Blood Culture (Wb) - Anticubital Right Blood Culture - Preliminary Staphylococcus epidermidis mecA Resistance Marker 11/30/21 09:05 Urine, Clean Catch Urine Culture - Final Culture exhibits no growth. 11/30/21 12:42 Nasal Secretion SARS-CoV-2 Antigen (Rapid) - Final Radiography Diagnostic Testing: Radiology Impression Venous Doppler Study 11/30/21 11:52 Interpretation Summary Deep veins of the bilateral lower extremity are patent and compressible segm entally. There is no evidence of bilateral lower extremity deep vein thrombosis. The right great saphenous vein appears patent and compressible segmentally. The left great saphenous vein was previously harvested Ordering Physician: Amy Espinosa Referring Physician: Wilbert Pradhan Chi Performed By: Brandy Johnson RVT Mandible X-Ray 12/01/21 14:50 IMPRESSION: Negative mandible x-rays. Electronically Signed: Austin Humphreys MD at 17:26 EDT , Rhythm Strip Rhythm Strip: A-fib Rate: 98 Ectopy: PVC(s) Physical Exam Narrative Physical exam: General: Alert, Oriented x3, Cooperative, obese HEENT: Atraumatic Oral: Moist Mucosa Neck: Supple Lungs:Diminished to auscultation Cardiovascular: HS I+II, regular, no murmurs Abdomen: Bowel Sounds Present, Soft, Non Tender Extremities: Anarsarca, edema of hands, bilateral leg edema +2, RLE erythema and differential warmth, slightly improved Skin: No rashes, No breakdown Neurological: Grossly intact Psych/Mental Status: Appropriate Assessment & Plan Assessment/Plan (1) Sepsis: (2) Cellulitis: PLAN: Plan 1.Sepsis secondary to acute severe right lower extremity cellulitis/pneumonia/MRSE bacteremia Improving, WBC count is 7.3; was 15.4 on admission Patient with still significant right lower leg cellulitis Continue on IV vancomycin and Zosyn ID following 2.Acute hypoxia, likely secondary to probable pneumonia/atelectasis, resolved Admitting chest/per showed ill-defined opacities within the lower lungs suggestive of atelectasis/pneumonia Patient is currently off oxygen Continue to encourage use of incentive spirometer 3.KODY on CKD stage IIIa, improved Admitting creatinine was 2.17, creatinine today is 1.71 Continue to trend 4.Chronic A. fib, status post maze procedure, Continue metoprolol and amiodarone Continue on Eliquis 5.CAD status post recent CABG, ischemic cardiomyopathy, EF 50% Continue with Lasix IV twice daily, Trend labs 6.Hypothyroidism, continue Synthroid 7.DVT prophylaxis?on Eliquis Charges/Coding Visit Charges Inpatient E&M: 27456 Subs Hosp L2
[2021-12-02 15:05] LABS: Vancomycin, Trough Level 11.8 ug/mL (5.0-15.0)
--- NOTE | 2021-12-02 15:43 | PCM.RX.CS ---
Consult Pharmacy has been consulted to manage selected antiobiotic: Vancomycin Type of Consult: Follow-up Suspected Infection: Sepsis, Skin/Soft tissue, Pneumonia Labs: Sodium 142 mmol/L (136-145) 12/02/21 05:23 Potassium 3.7 mmol/L (3.5-5.1) 12/02/21 05:23 Chloride 110 mmol/L (98-107) H 12/02/21 05:23 Carbon Dioxide 26.0 mmol/L (21.0-32.0) 12/02/21 05:23 Anion Gap 6 (5-15) 12/02/21 05:23 BUN 36 mg/dL (7-18) H 12/02/21 05:23 Creatinine 1.71 mg/dL (0.70-1.30) H 12/02/21 05:23 Est GFR (MDRD) Af Amer 50 mL/min (>60) L 12/02/21 05:23 Est GFR (MDRD) Non-Af 41 mL/min (>60) L 12/02/21 05:23 BUN/Creatinine Ratio 21.1 RATIO (10-20) H 12/02/21 05:23 Glucose 111 mg/dL (74-106) H 12/02/21 05:23 Vancomycin Trough 11.8 ug/mL (5.0-15.0) 12/02/21 14:41 Microbiology: Microbiology 11/30/21 08:25 Blood Culture (Wb) - Anticubital Right Blood Culture - Final Staphylococcus species 11/30/21 08:10 Blood Culture (Wb) - Anticubital Right Bacteria Detection (PCR) - Final Staphylococcus epidermidis mecA Resistance Marker 11/30/21 08:10 Blood Culture (Wb) - Anticubital Right Blood Culture - Preliminary Staphylococcus epidermidis mecA Resistance Marker 11/30/21 09:05 Urine, Clean Catch Urine Culture - Final Culture exhibits no growth. 11/30/21 12:42 Nasal Secretion SARS-CoV-2 Antigen (Rapid) - Final Goal Trough: 15-20 mcg/mL Pharmacy Plan for Drug Dosing: VANCOMYCIN LEVEL RECEIVED Current Vancomycin Dose: 1500mg q24h (at 1500) Number of Doses Received: x1 2000mg dose, x2 1500mg doses Vancomycin Level: 11.8 Hours Since Last Dose: 23.5 Renal Function: SrCr 1.71 Renal Function Trend: SrCr improving (was 2.1 on 11/30/21) Lab/Micro: Vancomycin Plan/Comments: resulted trough of 11.8 is below the ordered goal trough range of 15-20. recommend increasing dose from 1500mg to 1750mg q24h starting 12/03/21 at 1500. trough before the 3rd dose Pending Level: 12/05/21 at 1430 Pharmacy Service will continue to monitor and adjust dosing as required. Follow-Up Labs: Trough Vancomycin - 12/05/21 at 1430
[2021-12-02] MEDS: Atorvastatin Calcium 40 MG Tablet PO (21:06)
[2021-12-03] VITALS (8 sets, daily range): BP systolic 115–122; BP diastolic 71–75; PULSE 58–83; RESP 16–20; TEMP 36.4–37.1; O2SAT 95–99
[2021-12-03] MEDS: Levothyroxine 25 MCG TABLET PO (05:16)
[2021-12-03] MEDS: Glycerin/Hypromellose/PEG400 15 ml Bottle 1 DRP RIGHT EYE ×2 (05:17→14:57)
[2021-12-03] MEDS: prednisoLONE eye drops (5 mL) 1 DROP OPTH.BTL 1 DRP LEFT EYE ×2 (05:17→14:57)
[2021-12-03] MEDS: 0.9% Saline Lock 10 ML Syringe IV ×2 (05:18→08:07)
[2021-12-03 05:32] LABS: Absolute Lymphocyte Count 0.79 X10^3/uL (0.83-4.51); Absolute Neutrophil Count 4.2 X10^3/uL (2.0-7.7); Basophil# 0.03 X10^3/uL; Basophil% 0.5 % (0-1); Eosinophil# 0.19 X10^3/uL; Eosinophils% 3.3 % (0-5); Hematocrit 35.5 % (40-54); Hemoglobin 10.7 g/dL (13.0-16.5); Lymphocyte # 0.79 X10^3/ul (0.83-4.51); Lymphocyte % 13.9 % (19-41); Mean Corp Hgb Conc 30.1 g/dL (32-36); Mean Corpuscular Hgb 25.7 pg (27.0-32.0); Mean Corpuscular Volume 85.1 fL (80-94); Mean Platelet Vol. 9.3 fl (6.2-12.0); Monocyte# 0.47 X10^3/uL; Monocyte% 8.3 % (0-10); NRBC Flagged by Analyzer 0 % (0-5); Neutrophil # 4.18 X10^3/uL (2.7-7.7); Neutrophil % 73.6 % (47-70); POSITIVE MORPHOLOGY YES; Platelet Count 130 K/mm3 (150-450); RBC Distribution Width CV 23.1 % (11.6-14.6); RBC Distribution Width SD 72.1 fl (35.1-43.9); Red Blood Count 4.17 M/mm3 (4.6-6.2); White Blood Count 5.7 K/mm3 (4.4-11.0)
[2021-12-03 05:37] LABS: Differential Indicated SCAN CRITERIA MET
[2021-12-03 06:24] LABS: Anisocytosis 1+; Differential Comment SCANNED; Microcytosis 1+; Ovalocyte 1+
[2021-12-03 06:27] LABS: ALB/GLOB Ratio 0.8 RATIO (0.9-2.4); AST(SGOT) 37 U/L (15-37); Alanine Aminotransfer ALT/SGPT 45 U/L (16-61); Albumin, Serum 2.4 g/dL (3.2-5.0); Alkaline Phosphatase 83 U/L (45-117); Anion Gap 4 (5-15); BUN 31 mg/dL (7-18); BUN/Creat Ratio 19.6 RATIO (10-20); Calcium,Total 8.6 mg/dL (8.5-10.1); Chloride 110 mmol/L (98-107); Creatinine, Serum 1.58 mg/dL (0.70-1.30); EST Glomerular Filtration Rate 45 mL/min (>60); Est Glom Filt Rate - Afr Amer 55 mL/min (>60); Globulin 3.2 g/dL (2.2-4.2); Glucose 113 mg/dL (74-106); Potassium 3.7 mmol/L (3.5-5.1); Protein, Total 5.6 g/dL (6.4-8.2); Sodium Level 143 mmol/L (136-145)
[2021-12-03] MEDS: Tolterodine Tartrate 2 MG CAP.SA PO (08:06)
[2021-12-03] MEDS: Metoprolol Tartrate 50 MG Tablet PO (08:06)
[2021-12-03] MEDS: FLUoxetine 20 MG Capsule PO (08:07)
[2021-12-03] MEDS: Furosemide 40 MG/4 ML Vial IV (08:07)
[2021-12-03] MEDS: Amiodarone 200 MG Tablet PO (08:07)
[2021-12-03] MEDS: Potassium Chloride Oral Tablet 20 MEQ PO (08:07)
[2021-12-03] MEDS: Pantoprazole Sodium 40 MG Tablet PO (08:07)
[2021-12-03] MEDS: Cyanocobalamin 500 MCG Tablet 1000 MCG PO (08:07)
[2021-12-03] MEDS: Aspirin E.C. 81 MG Tablet PO (08:07)
[2021-12-03] MEDS: APIXABAN 5 MG TABLET PO (08:07)
[2021-12-03] MEDS: Divalproex Sodium 250 MG Tablet PO (08:07)
--- NOTE | 2021-12-03 15:34 | DCINST_ITS ---
Discharge Instructions Diet Discharge Diet: Low fat / Low cholesterol and 2000 mg Sodium Diet Activity Discharge Activity: Return to Normal Activity Follow Up Care Test Results: Test results from this visit will be discussed in further detail at your follow- up appointment, if applicable. Discharge Plan Admission Admit Date/Time: 11/30/21 09:12 Primary Reason for Your Visit: Sepsis/RLE cellulitis Attending Provider: Sherrie Dolan Primary Care Provider: Wilbert Pradhan Chi Consulting Providers: Amy Espinosa ; Bryce Tam ; Pillo Delaney ; Amaury Woody ; Gelacio [place] ; Lobito [place] ; Mer Daniels NURSING HOME ADMISSIONS DIRECTOR Instructions Additional Instructions / Restrictions: Continue to keep your legs elevated and wrapped Complete your antibiotics Follow a low-salt, low-fat diet with fluid restriction of 1500 MLS per day Follow-up with your primary care doctor within 1 week Discharge Orders/Prescriptions Prescriptions: New linezolid 600 mg tablet 600 mg PO Q12H 7 Days Qty: 14 0RF Rx Instructions: Hold SSRI while on linezolid furosemide [Lasix] 40 mg tablet 40 mg PO BID 30 Days Qty: 60 0RF Continued pantoprazole 40 mg tablet,delayed release (DR/EC) 40 mg PO DAILY Eliquis 5 mg tablet 5 mg PO BID atorvastatin 40 mg tablet 40 mg PO QHS trospium 20 mg tablet 20 mg PO BID Rx Instructions: administer on an empty stomach levothyroxine 25 mcg tablet 25 mcg PO DAILY nitroglycerin 0.4 mg tablet, sublingual 0.4 mg sublingual Q5M PRN (Reason: Chest Pain) Rx Instructions: do not exceed 3 doses per episode potassium klor-con 20 meq PO DAILY acetaminophen 500 mg tablet 1,000 mg PO Q6H PRN (Reason: pain) divalproex 250 mg tablet,delayed release (DR/EC) 250 mg PO BID aspirin [Adult Low Dose Aspirin] 81 mg tablet,delayed release (DR/EC) 81 mg PO DAILY cyanocobalamin (vitamin B-12) 1,000 mcg tablet 1,000 mcg PO BID prednisolone acetate 1 % Drops,Suspension 1 drp RIGHT EYE TID carboxymethylcellulose sodium 1 % Drops, Liquid Gel 1 drp RIGHT EYE DAILY fluoxetine 20 mg capsule 20 mg PO DAILY Label Comments: TAKE 1 CAPSULE BY MOUTH ONCE DAILY IN THE MORNING FOR 90 DAYS amiodarone 200 mg tablet 200 mg PO DAILYCM metoprolol tartrate 50 mg tablet 50 mg PO BID Discontinued furosemide 40 mg tablet 60 mg DAILY Label Comments: Take 1.5 Tablets by mouth once per day for 90 days 40 mg in am 20 mg in pm Referrals / Follow Up: Wilbert Pradhan Chi, MD [Primary Care Provider] - In 1 Week Disposition Disposition (needs filled in before D/C Order can be placed): Home, Self Care
--- NOTE | 2021-12-03 15:48 | PCM.PN.ID ---
Physical Exam Narrative Feeling well, discharge planned, no fever Const alert and no apparent distress Resp normal air movement and clear to auscultation bilaterally Cardio regular rate and regular rhythm GI soft to palpation, non-tender and non-distended Skin Skin Narrative: improved redness ID ID: Route of nutrition/ use of supplements: [] Nutritional Intake: [] IV Site: [] Pal Catheter: [] Assessment & Plan Assessment/Plan (1) Sepsis: PLAN: Unclear source. Chronic edema and RLE skin changes, mild redness and warmth. Possible pneumonia. Also with poor dentition, multiple cracked/rotten/sore teeth in jaw. Neg dental xrays. On vanc/zosyn, feeling better. 2 of 2 bcx with staph, MRSE per pcr, so far consistent with true bacteremia. Covid neg here. Ok for home with one week zyvox, hold SSRI while on it. Will follow as needed, d/w primary team
--- NOTE | 2021-12-03 16:00 | CASEMGMT ---
Addendum entered by Brandy Rey 12/03/21 16:27: [facility] to check coverage/co-pay for Linezolid. Per tech, pt's cost after insurance coverage is $600. Dr. Dolan and Dr. Tam updated. Liana, PCU charge, also updated. Pt updated and provided GoodRx coupon code which states should be $40.59. Dr. Dolan to follow. Vinnie JIMENEZ CM Addendum entered by Brandy Rey 12/03/21 16:13: Per Matt JIMENEZ, pt does not qualify for home oxygen at discharge. Vinnie JIMENEZ CM Original Note: Therapy states no need for further therapy at discharge. Pt to be sent home on Linezolid and [facility] and per pharmacist, he has not run med yet and TONY GILLESPIE needs to call back in 30 min or so. Pt states no concerns with going home at time of discharge and states needs to contact son for transport home. Vinnie JIMENEZ CM
--- NOTE | 2021-12-03 16:22 | DS.PCM_ITS ---
Providers Date of Admission: 11/30/21 Date of Discharge: 12/04/21 Primary Care Physician: Dr. Wilbert Pradhan MD Consultations 11/30/21 11:52 Consult: Visual Coordinator / Pulmonary Medicine Routine Consulting Provider: Pulmonary Medicine myra Woodgate Reason for Consult: sepsis due to cellulitis EMERGENT Consult: No Notified: Yes Date Notified: 11/30/21 Time Notified: 11:31 Method of Notification: Text 12/01/21 09:08 Consult: Infectious Disease Routine Consulting Provider: Bryce Tam Reason for Consult: Gram positive cocci bacteremia EMERGENT Consult: No Notified: Yes Date Notified: 12/01/21 Time Notified: 09:23 Method of Notification: Text Reason For Visit: RLE CELLULITIS, SEPSIS Diagnosis Discharge Diagnosis (1) Sepsis: Status: Acute Code(s): A41.9 - Sepsis, unspecified organism Plan 1.Sepsis secondary to acute severe right lower extremity cellulitis/pneumonia/MRSE bacteremia 2.Acute hypoxia, likely secondary to probable pneumonia/atelectasis 3.KODY on CKD stage IIIa 4.Chronic A. fib, status post maze procedure, 5.CAD status post recent CABG, ischemic cardiomyopathy, EF 50% 6.Hypothyroidism Medications at Discharge Home Medications apixaban 5 mg tablet (Eliquis) 5 mg PO BID blood thinner 11/07/18 atorvastatin 40 mg tablet 40 mg PO QHS cholesterol 11/07/18 pantoprazole 40 mg tablet,delayed release 40 mg PO DAILY gerd 11/07/18 trospium 20 mg tablet 20 mg PO BID bladder 07/18/19 carboxymethylcellulose sodium 1 % eye liquid gel drops 1 drp RIGHT EYE DAILY dry eyes 06/02/21 prednisolone acetate 1 % eye drops,suspension 1 drp RIGHT EYE TID eye drops 06/02/21 acetaminophen 500 mg tablet 1,000 mg PO Q6H PRN pain 07/22/21 aspirin 81 mg tablet,delayed release (Adult Low Dose Aspirin) 81 mg PO DAILY antiplatelet 07/22/21 cyanocobalamin (vitamin B-12) 1,000 mcg tablet 1,000 mcg PO BID vitamin 07/22/21 nitroglycerin 0.4 mg sublingual tablet 0.4 mg sublingual Q5M PRN Chest Pain 08/26/21 potassium klor-con 20 meq PO DAILY potassium replacement 08/26/21 divalproex 250 mg tablet,delayed release 250 mg PO BID mood, depression 09/15/21 levothyroxine 25 mcg tablet 25 mcg PO DAILY thyroid 09/15/21 amiodarone 200 mg tablet 200 mg PO DAILYCM Afib 11/30/21 fluoxetine 20 mg capsule 20 mg PO DAILY mental health 11/30/21 metoprolol tartrate 50 mg tablet 50 mg PO BID heart 11/30/21 furosemide 40 mg tablet (Lasix) 40 mg PO BID 30 days #60 tabs 12/03/21 levofloxacin 500 mg tablet 250 mg PO DAILY 6 days #3 tabs 12/03/21 levofloxacin 500 mg tablet 500 mg PO DAILY 1 day #1 TAB 12/03/21 Hospital Course Operations None Procedures None Summary of Care Provided Minutes Spent on Discharge: 45 Hospital Course: 69-year-old male with past medical history of CAD status post CABG, chronic atrial fibrillation who comes in with complaints of generalized weakness and chills. Patient was found in the ED to be febrile and tachycardic. He had a WBC count of 15.4, lactic acid 2.3, total bili was 1.3, AST/ALT/ALP were elevated. Chest x-ray showed ill-defined opacities within the lower lung zones which was suggestive of atelectasis or pneumonia. He was admitted to the ICU and managed as sepsis secondary to right lower extremity cellulitis and probable pneumonia. He had evidence of hypotension that was responsive to IV fluids. Patient's blood cultures came back growing MRSE. He was continued on IV vancomycin and Zosyn. Visual Coordinator and infectious disease were consulted. Patient did not require the use of IV pressors. He was transferred out of the ICU to the progressive care unit. He was maintained on IV Lasix. He generally continue to improve and was initially discharged on 1 week of linezolid but the [id number] cost was more than 600. This was switched to Levaquin 500 mg p.o. x1 and then to 50 mg p.o. daily for 6 days making a total of 1 week. Patient was strongly encouraged to weigh himself and follow-up with CHF protocol at home. He was educated on low-salt diet low-fat diet. Was also asked to elevate his legs and use Zenon wrap. He will follow-up with his primary care doctor within 1 week. Physical Exam Narrative Physical exam: General: Alert, Oriented x3, Cooperative, obese HEENT: Atraumatic Oral: Moist Mucosa Neck: Supple Lungs:Diminished to auscultation Cardiovascular: HS I+II, regular, no murmurs Abdomen: Bowel Sounds Present, Soft, Non Tender Extremities: Anarsarca, edema of hands, bilateral leg edema +2, RLE erythema and differential warmth, slightly improved Skin: No rashes, No breakdown Neurological: Grossly intact Psych/Mental Status: Appropriate Weight / BMI Weight Weight: 118.5 kg Body Mass Index (BMI) 36.0 ABG / Lab / Microbiology Data Result Diagrams: 12/03/21 05:13 12/03/21 05:13 Laboratory: Laboratory Results - last 24 hr 12/03/21 05:13: WBC 5.7, RBC 4.17 L, Hgb 10.7 L, Hct 35.5 L, MCV 85.1, MCH 25.7 L, MCHC 30.1 L, RDW Std Deviation 72.1 H, RDW Coeff of Sylwia 23.1 H, Plt Count 130 L, MPV 9.3, Immature Gran % (Auto) 0.400, Neut % (Auto) 73.6 H, Lymph % (Auto) 13.9 L, [place] % (Auto) 8.3, Eos % (Auto) 3.3, Baso % (Auto) 0.5, Absolute Neuts (auto) 4.2, Absolute Lymphs (auto) 0.79 L, Nucleated RBC % 0, Differential Comment SCANNED, Anisocytosis 1+, Microcytosis 1+, Ovalocytes 1+ 12/03/21 05:13: Sodium 143, Potassium 3.7, Chloride 110 H, Carbon Dioxide 29.0, Anion Gap 4 L, BUN 31 H, Creatinine 1.58 H, Estim Creat Clear Calc 41.70, Est GFR (MDRD) Af Amer 55 L, Est GFR (MDRD) Non-Af 45 L, BUN/Creatinine Ratio 19.6, Glucose 113 H, Calcium 8.6, Total Bilirubin 0.50, AST 37, ALT 45, Alkaline Phosphatase 83, Total Protein 5.6 L, Albumin 2.4 L, Globulin 3.2, Albumin/Globulin Ratio 0.8 L Microbiology: Microbiology 11/30/21 08:10 Blood Culture (Wb) - Anticubital Right Bacteria Detection (PCR) - Final Staphylococcus epidermidis mecA Resistance Marker 11/30/21 08:10 Blood Culture (Wb) - Anticubital Right Blood Culture - Final Staphylococcus epidermidis mecA Resistance Marker 11/30/21 08:25 Blood Culture (Wb) - Anticubital Right Blood Culture - Final Staphylococcus species 11/30/21 09:05 Urine, Clean Catch Urine Culture - Final Culture exhibits no growth. 11/30/21 12:42 Nasal Secretion SARS-CoV-2 Antigen (Rapid) - Final D/C Instructions Discharge Diet: Low fat / Low cholesterol and 2000 mg Sodium Diet Meaningful Use Info Meaningful Use Diagnoses (Choose all that apply): None applicable Discharge Plan Admission Admit Date/Time: 11/30/21 09:12 Primary Reason for Your Visit: Sepsis/RLE cellulitis Attending Provider: Sherrie Dolan Primary Care Provider: Wilbert Pradhan Chi Consulting Providers: Amy Espinosa ; Bryce Tam ; Pillo Delaney ; Amaury Woody ; Gelacio [place] ; Lobito Madrid ; Mer Daniels ADVERTISING COPYWRITER Instructions Additional Instructions / Restrictions: Continue to keep your legs elevated and wrapped Complete your antibiotics Follow a low-salt, low-fat diet with fluid restriction of 1500 MLS per day Follow-up with your primary care doctor within 1 week Discharge Orders/Prescriptions Prescriptions: New furosemide [Lasix] 40 mg tablet 40 mg PO BID 30 Days Qty: 60 0RF levofloxacin 500 mg tablet 500 mg PO DAILY 1 Days Qty: 1 0RF Rx Instructions: for 12/04/21 levofloxacin 500 mg tablet 250 mg PO DAILY 6 Days Qty: 3 0RF Rx Instructions: start on 12/05/21 Continued pantoprazole 40 mg tablet,delayed release (DR/EC) 40 mg PO DAILY Eliquis 5 mg tablet 5 mg PO BID atorvastatin 40 mg tablet 40 mg PO QHS trospium 20 mg tablet 20 mg PO BID Rx Instructions: administer on an empty stomach levothyroxine 25 mcg tablet 25 mcg PO DAILY nitroglycerin 0.4 mg tablet, sublingual 0.4 mg sublingual Q5M PRN (Reason: Chest Pain) Rx Instructions: do not exceed 3 doses per episode potassium klor-con 20 meq PO DAILY acetaminophen 500 mg tablet 1,000 mg PO Q6H PRN (Reason: pain) divalproex 250 mg tablet,delayed release (DR/EC) 250 mg PO BID aspirin [Adult Low Dose Aspirin] 81 mg tablet,delayed release (DR/EC) 81 mg PO DAILY cyanocobalamin (vitamin B-12) 1,000 mcg tablet 1,000 mcg PO BID prednisolone acetate 1 % Drops,Suspension 1 drp RIGHT EYE TID carboxymethylcellulose sodium 1 % Drops, Liquid Gel 1 drp RIGHT EYE DAILY fluoxetine 20 mg capsule 20 mg PO DAILY Label Comments: TAKE 1 CAPSULE BY MOUTH ONCE DAILY IN THE MORNING FOR 90 DAYS amiodarone 200 mg tablet 200 mg PO DAILYCM metoprolol tartrate 50 mg tablet 50 mg PO BID Discontinued furosemide 40 mg tablet 60 mg DAILY Label Comments: Take 1.5 Tablets by mouth once per day for 90 days 40 mg in am 20 mg in pm Referrals / Follow Up: Wilbert Pradhan Chi, MD [Primary Care Provider] - In 1 Week Disposition Disposition (needs filled in before D/C Order can be placed): Home, Self Care Charges/Coding Visit Charges Inpatient E&M: 88175 Disch Hosp
== END 2021-12-03 19:40 | disposition home or self-care (01) | DRG 871 ==
LOC: ED 08:29 → ICU 10:16 → PCU 12-01 16:03
PROVIDERS: Admitting Provider Student in an Organized Health Care Education/Training Program; Emergency Provider Emergency Medicine; PCP Family Medicine Geriatric Medicine; Visit Provider Internal Medicine
DX: A41.1 Sepsis due to other specified staphylococcus (principal); J18.9 Pneumonia, unspecified organism; I48.20 Chronic atrial fibrillation, unspecified; L03.115 Cellulitis of right lower limb; G47.39 Other sleep apnea; E03.9 Hypothyroidism, unspecified; N18.31 Chronic kidney disease, stage 3a; I12.9 Hypertensive chronic kidney disease with stage 1 through stage 4 chronic kidney disease, or unspecified chronic kidney disease; E78.5 Hyperlipidemia, unspecified; I25.10 Atherosclerotic heart disease of native coronary artery without angina pectoris; K21.9 Gastro-esophageal reflux disease without esophagitis; I25.5 Ischemic cardiomyopathy; K02.9 Dental caries, unspecified; Z79.01 Long term (current) use of anticoagulants; R09.02 Hypoxemia; Z20.822 Contact with and (suspected) exposure to COVID-19; Z79.899 Other long term (current) drug therapy; Z79.82 Long term (current) use of aspirin; Z95.1 Presence of aortocoronary bypass graft; F32.A Depression, unspecified
CPT/HCPCS: 36415; 70110; 71045; 80048; 80053; 80202; 81001; 83605; 85025; 85610; 85730; 87040; 87086; 87149; 87186; 87426; 93005; 93970; 97162; 97166; 99285; J7030; J7040; J7050; A4216; J0295; J1940

== ENCOUNTER 2022-01-06 11:00 | Outpatient (RCR) | payer MEDICARE, OTHER, SELFPAY ==
[2021-09-17 08:31] VITALS: BMI 38.4
[2021-12-16 10:29] VITALS: BP 132/86; PULSE 88; RESP 18; TEMP 36.3; BMI 34.8
--- NOTE | 2021-12-16 12:29 | PCM.WC.HP ---
History of Present Illness Date of Service: 12/16/21 Chief Complaint: Ulceration, left posterior calf History of Wound: This is a 76-year-old male with an extensive past medical history. He presents today with a small ulceration on the left posterior calf. He was recently hospitalized as an inpatient at [facility] from November 30 to December 03, treated for cellulitis of the right lower extremity and sepsis. Sepsis was thought to be secondary to a MRSE bacteremia from pneumonia. During his inpatient stay, the patient was hypoxic, and he was treated with vancomycin and Zosyn intravenously. He was discharged on oral Levaquin. A venous duplex examination performed on December 01 revealed no evidence of lower extremity thrombophlebitis. Laboratory studies performed on December 03 were as follows: White blood count 5.7, hemoglobin 10.7, hematocrit 35.5, protein 5.6 (low), and albumin 2.4 (low). Patient suffers from multiple pre-existing medical problems, listed below. He is not diabetic. FOR[facility]LY [facility] Medical History Atherosclerosis of coronary artery of [place] heart without angina pectoris Atrial fibrillation Brantley's esophagus with esophagitis CAD (coronary artery disease) Chronic anticoagulation Chronic depression Chronic kidney disease, stage 3 Chronic kidney disease, stage III (moderate) Depression Essential hypertension GERD (gastroesophageal reflux disease) Hearing deficit History of left heart catheterization (LHC) (~05/20/21) History of septic shock (04/02/16) Hyperlipidemia Hypothyroidism Iron deficiency anemia Left leg swelling Lipodermatosclerosis Obesity (BMI 35.0-39.9 without comorbidity) Obstructive sleep apnea Right leg swelling Sleep apnea Ulcer of left calf Home Medications apixaban 5 mg tablet (Eliquis) 5 mg PO BID blood thinner 11/07/18 [History Last Taken 06/02/21] atorvastatin 40 mg tablet 40 mg PO QHS cholesterol 11/07/18 [History Last Taken Unknown] pantoprazole 40 mg tablet,delayed release 40 mg PO DAILY gerd 11/07/18 [History Last Taken 09/10/20] trospium 20 mg tablet 20 mg PO BID bladder 07/18/19 [History Last Taken 12/03/20] carboxymethylcellulose sodium 1 % eye liquid gel drops 1 drp RIGHT EYE DAILY dry eyes 06/02/21 [History Last Taken Unknown] prednisolone acetate 1 % eye drops,suspension 1 drp LEFT EYE TID eye drops 06/02/21 [History Last Taken Unknown] acetaminophen 500 mg tablet 1,000 mg PO Q6H PRN pain 07/22/21 [History Last Taken Unknown] aspirin 81 mg tablet,delayed release (Adult Low Dose Aspirin) 81 mg PO DAILY antiplatelet 07/22/21 [History Last Taken 11/29/21] cyanocobalamin (vitamin B-12) 1,000 mcg tablet 1,000 mcg PO BID vitamin 07/22/21 [History Last Taken Unknown] nitroglycerin 0.4 mg sublingual tablet 0.4 mg sublingual Q5M PRN Chest Pain 08/26/21 [History Last Taken Unknown] potassium klor-con 20 meq PO DAILY potassium replacement 08/26/21 [History Last Taken Unknown] divalproex 250 mg tablet,delayed release 250 mg PO BID mood, depression 09/15/21 [History Last Taken Unknown] levothyroxine 25 mcg tablet 25 mcg PO DAILY thyroid 09/15/21 [History Last Taken Unknown] amiodarone 200 mg tablet 200 mg PO DAILYCM Afib 11/30/21 [History Last Taken Unknown] fluoxetine 20 mg capsule 20 mg PO DAILY mental health 11/30/21 [History Last Taken Unknown] metoprolol tartrate 50 mg tablet 50 mg PO BID heart 11/30/21 [History Last Taken Unknown] furosemide 40 mg tablet (Lasix) 60 mg PO DAILY 12/16/21 [History Last Taken Unknown] pagdwdwf-fdg-bevpj acid 300 mcg-lycopene 600 mcg-lutein 300 mcg tablet (Centrum Silver Men) 1 tab PO DAILY 12/16/21 [History Last Taken Unknown] Allergy/AdvReac Type Severity Reaction Status Date / Time No Known Allergies Allergy Verified 11/30/21 07:18 Family History Father Cancer Lung Mother Heart disease Brother Heart disease CVA (cerebral vascular accident) Brother Heart disease Brother Heart disease Surgical History History of bilateral knee replacement History of coronary artery bypass graft x 3 (~05/27/21) History of total left knee replacement History of total right knee replacement Stented coronary artery (04/14/07) Social History household members: spouse housing: apartment pets and animals: No Smoking Status: Never smoker alcohol intake: never substance use type: does not use caffeine: Yes Type: carbonated beverages Number of servings: 1 Vital Signs Vital Signs Vital Signs: 12/16/21 10:29 Temperature 97.3 F L Temperature Source Temporal Pulse Rate 88 Respiratory Rate 18 Blood Pressure 132/86 H Blood Pressure Mean 101 Blood Pressure Source Monitor Blood Pressure Position Supine Blood Pressure Location Left Arm Oxygen Delivery Method Room Air Weight Weight: 250 lb Body Mass Index (BMI) 34.8 Physical Exam Const alert, oriented x3, no apparent distress and well nourished Constitutional Narrative: The patient is obese General Appearance: cooperative, comfortable, well kempt and well developed Orientation / Consciousness: awake, oriented to person, oriented to place and oriented to time Exam Limitations: no limitations HEENT normocephalic and head/scalp atraumatic Head and Scalp: normal to inspection, normocephalic and atraumatic General Ear: hearing grossly impaired External Ear: external ears normal Eyes PERRL and EOMs intact bilaterally General Eye: normal appearance of both eyes Resp normal respiratory effort, normal air movement, no retractions and no use of accessory muscles Effort and Inspection: able to speak in complete sentences and symmetric chest movement Extremity no calf tenderness General Extremity: Negative for clubbing or cyanosis Skin Wound Narrative: Swelling and edema are noted bilaterally in the patient's lower extremities. Lipodermatosclerosis is noted in the gaiter areas bilaterally. A small ulceration is noted on the left posterior calf. There is no sign of infection or cellulitis. Dimensions are documented elsewhere. There is a moderate amount of bioburden. Neuro oriented x3, CN's II-XII intact bilaterally, moves all extremities and no focal motor deficits Sensorium / Orientation: awake, alert, oriented to person, oriented to place and oriented to time Psych Appearance: grossly normal and appropriate Attitude: calm Activity / Motor Behavior: appropriate eye contact Speech: normal speech Mood & Affect: euthymic mood Thought Process: normal thought process Thought Content: normal thought content Attention / Concentration: attention grossly intact Debridement Note Debridement Note Wound debrided: Left posterior calf Laterality: Left Type of Debridement: Excisional debridement Anesthesia Used: 5% Lidocaine Gel Depth: Down to and including healthy tissue and in the subcutaneous layer Percentage of wound debrided: 100 Instrument Used: 3mm curette Tissue Removed: Bioburden and nonviable tissue Severity: Fat Layer Exposed Amount of bleeding with debridement: Mild Bleeding Controlled with: Compression and gauze Patient tolerated procedure: Patient tolerated procedure well Post-Debridement Measurements and Additional Note: Post-Debridement Measurements/Treatment - Nurse 1 - General Ulcer Assessment Start: 12/16/21 10:29 Freq: Status: Active Protocol: SHARRI Activity Type Activity Date Activity User E-sign Co-sign Detail Recorded Client Recorded Date Recorded By Document 12/16/21 10:29 MW [id number] 12/16/21 10:48 MW 12/16/21 10:29 - Today's Visit Information Type of service Initial Visit Arrival Mode Ambulatory Transfer Assistance None Accompanied by self Patient Identification Verified (Name & Yes ) Patient Requires Transmission-Based No Precautions Safety Precautions NA Height and Weight Height 5 ft 11 in Weight 250 lb Weight in Pounds 250.0 lbs Body Mass Index (BMI) 34.8 BMI Classification Obese BSA - Ayaan 2.32 Vital Signs Temperature (97.8 F-99.1 F) 97.3 F L Temperature Source Temporal Pulse Rate (60-100) 88 Pulse Location Monitor Respiratory Rate (12-18) 18 Respiratory rate source Observation Oxygen Delivery Method Room Air Blood Pressure (90/60-120/80) 132/86 H Blood Pressure Mean 101 Source Monitor Position Supine Blood Pressure Location Left Arm History Since Last Visit- (Skip if this is Patient's initial visit) Left Footwear Regular Shoe Right Footwear Regular Shoe Pain Scale: 0-10 Numeric Is Patient Pain Free? Yes Lower Extremity Assessment/ Foot Assessment/ Toe Nail Assessment Right -Posterior Tibial Palpable No -Posterior Tibial Doppler Inaudible -Dorsalis Pedis Palpable No -Dorsalis Pedis Doppler Inaudible -Extremity Color Red,Hemosiderin -Hair Growth on Legs No -Hair Growth on Toes No -Temperature of Extremity Warm -Capillary Refill Greater than 3 Seconds -Dependent Rubor No -Lipodermatosclerosis No -Other Deformity No -Prior Foot Ulcer No -Charcot Joint No -Prior Amputation No -Thick Yes -Discolored Yes -Deformed No -Improper Length & Hygeine Yes Left -Posterior Tibial Palpable No -Posterior Tibial Doppler Inaudible -Dorsalis Pedis Palpable No -Dorsalis Pedis Doppler Inaudible -Extremity Color Red -Hair Growth on Legs No -Hair Growth on Toes No -Temperature of Extremity Warm -Capillary Refill Greater than 3 Seconds -Dependent Rubor No -Lipodermatosclerosis No -Other Deformity No -Prior Foot Ulcer No -Charcot Joint No -Prior Amputation No -Thick Yes -Discolored Yes -Deformed No -Improper Length & Hygeine Yes Neuropathy Assessment Feet - Top Side and Bottom <Entered> (a) Communication Assessment Preferred language [place] Manganese Heater Required No Able to Read Yes Able to Write Yes Communication Tools None Caregiver Communication Skills No Impairment Impairment Right Hearing Abillity Use of Hearing Aid Left Hearing Abillity Use of Hearing Aid Visual Assistive Devices Glasses Teaching Assessment Preferences Verbal,Written, Audio/Visual, Demonstration Barriers to Learning None Readiness To Learn Excellent Willingness to Engage in Self Management High Activies Readiness to Engage in Self Management High Activities Anxiety Level Calm Cooperation Cooperative Perception Coherent Interest in Health Problem Asks Questions Education Importance Acknowledges Need Does Patient Smoke tobacco or other No substances Smoking Status Never smoker Is Patient Diabetic No (a) 1 - + WC - Nurse 1 - General Ulcer Measurement Start: 12/16/21 10:29 Freq: Status: Active Protocol: Activity Type Activity Date Activity User E-sign Co-sign Detail Recorded Client Recorded Date Recorded By Document 12/16/21 10:29 MW [id number] 12/16/21 10:48 MW 12/16/21 10:29 Wound Center Nurse 1 #1 left posterior LE -Combined with other wound No -Current Size (cm) - Length 0.4 -Current Size (cm) - Width 0.5 -Current Size (cm) - Depth 0.1 -Total Square Cm 0.20 -Date of Last Picture (Recall this 12/16/21 field) -Photo Taken Yes -Epithelialization None Present -Tunneling No -Undermining/Tunneling No -Circular Undermining No -Exudate Amt None Present -Wound Margin Flat & Intact -Granulation Amt None Present (0 %) -Granulation Quality N/A -Slough/Fibrin Yes -Necrosis Amt Large (67-100%) -Necrotic Tissue Type Adherent Slough -Structure Exposed N/A -Texture (Floridalma-wound Skin Appearance) Assessed, Localized Edema ,Scarring -Moisture ([place]ma-wound Skin Appearance) Assessed,Dry/ Scaly -Color (Floridalma-wound Skin Appearance) Assessed,Rubor -Temperature (Floridalma-wound Skin No Abnormality Appearance) (Pt Warm) -Tenderness on Palpation (Floridalma-wound No Skin Appearance) -Ulcer Cleansing Rinsed/ Irrigated with Saline -Foul Odor after Cleansing No -Anesthetic Used 4% Lidocaine Solution Lower Limb Edema Present Yes Right Calf (cm) 43.0 Right Ankle (cm) 31.0 Left Calf (cm) 45.0 Left Ankle (cm) 30.5 WC - Nurse 2 - General Ulcer CM Notes Start: 12/16/21 10:29 Freq: Status: Active Protocol: Activity Type Activity Date Activity User E-sign Co-sign Detail Recorded Client Recorded Date Recorded By Document 12/16/21 11:44 PL [id number] 12/16/21 11:45 PL 12/16/21 11:44 Wound Center Nurse 2 #1 left posterior LE -Time 11:04 -Correct Patient Yes -Correct Side, Site, Position Yes -Correct Procedure Yes -Procedure Performed Yes -Type of Procedure Debridement -Clinical Debridement Subcutaneous -Tissue Removed Subcutaneous -Post Debridement (cm) - Length 0.4 -Post Debridement (cm) - Width 0.5 -Post Debridement (cm) - Depth 0.1 -Total Square (Post) (cm) 0.20 -Area of Debridement (cm) - Length 0.4 -Area of Debridement (cm) - Width 0.5 -Total Square (Area) (cm) 0.20 -Tunneling No -Undermining/Tunneling No -Circular Undermining No -Wound/Ulcer Outcome Not Healed -Ulcer Cleansing Rinsed/ Irrigated with Saline -Foul Odor after Cleansing No -Bioengineered Tissue No -Bleeding Controlled with Pressure -Treatment Response Procedure Tolerated Well -Debridement - Subq, 1st 20sq cm Yes Pain Scale: 0-10 Numeric Is Patient Pain Free? Yes Assessment/Plan Assessment/Plan (1) Ulcer of left calf: CODE(S): L97.229 - Non-pressure chronic ulcer of left calf with unspecified severity QUALIFIERS: Non-pressure ulcer stage: with fat layer exposed Qualified Code(s): L97.222 - Non-pressure chronic ulcer of left calf with fat layer exposed (2) Left leg swelling: CODE(S): M79.89 - Other specified soft tissue disorders (3) Right leg swelling: CODE(S): M79.89 - Other specified soft tissue disorders (4) Lipodermatosclerosis: CODE(S): I83.10 - Varicose veins of unspecified lower extremity with inflammation QUALIFIERS: Laterality: bilateral Qualified Code(s): I83.11 - Varicose veins of right lower extremity with inflammation; I83.12 - Varicose veins of left lower extremity with inflammation (5) Obesity (BMI 35.0-39.9 without comorbidity): CODE(S): E66.9 - Obesity, unspecified (6) History of atrial fibrillation: CODE(S): Z86.79 - Personal history of other diseases of the circulatory system (7) Chronic anticoagulation: CODE(S): 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 (8) Hx of CABG: CODE(S): Z95.1 - Presence of aortocoronary bypass graft (9) Chronic kidney disease, stage III (moderate): CODE(S): N18.30 - Chronic kidney disease, stage 3 unspecified (10) Central sleep apnea: CODE(S): G47.31 - Primary central sleep apnea (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: CODE(S): G47.31 - Primary central sleep apnea (12) History of coronary artery bypass graft x 3: CODE(S): Z95.1 - Presence of aortocoronary bypass graft (13) Hyperlipidemia: CODE(S): E78.5 - Hyperlipidemia, unspecified (14) Brantley esophagus: CODE(S): K22.70 - Brantley's esophagus without dysplasia (15) CAD (coronary artery disease): CODE(S): I25.10 - Atherosclerotic heart disease of [place] coronary artery without angina pectoris (16) Debility: CODE(S): R53.81 - Other malaise (17) MARTINEZ (dyspnea on exertion): CODE(S): R06.00 - Dyspnea, unspecified (18) Essential hypertension: CODE(S): I10 - Essential (primary) hypertension (19) GERD (gastroesophageal reflux disease): CODE(S): K21.9 - Gastro-esophageal reflux disease without esophagitis (20) Hypothyroidism: CODE(S): E03.9 - Hypothyroidism, unspecified (21) History of septic shock: CODE(S): Z86.19 - Personal history of other infectious and parasitic diseases (22) Stented coronary artery: CODE(S): Z95.5 - Presence of coronary angioplasty implant and graft (23) History of bilateral knee replacement: CODE(S): Z96.653 - Presence of artificial knee joint, bilateral (24) Hearing deficit: CODE(S): H91.90 - Unspecified hearing loss, unspecified ear PLAN: Plan This is a 76-year-old male recently hospitalized as an inpatient for treatment of MRSE bacteremia and pneumonia, as well as cellulitis of the right lower extremity. The infectious processes appear to be resolved, as the patient has received intravenous antibiotics while an inpatient, with Levaquin prescribed orally upon discharge. He presents at this time with a small ulceration on the left posterior calf. The etiology is uncertain. The patient has multiple pre-existing medical problems. Nutritional status appears to be suboptimal, based upon recent laboratory results. The patient has been encouraged to optimize his nutritional intake. Relative to the swelling and edema in his lower extremities, he has been advised to elevate his lower extremities to heart level, or higher, as much as possible. He claims to sleep on a flat mattress at night. He is to elevate his lower extremities is much as possible even during daytime hours. We are to implement the use of Unna boots which will be applied topically to each lower extremity, and changed twice weekly. Promogran will be applied topically to the left posterior calf ulceration with each change of the zinc oxide wraps. The patient is return in 1 week for reassessment. Weight loss has been recommended. Nutritional optimization has been recommended. Activity has been encouraged. Prolonged, idle sitting has been discouraged. Patient has been encouraged to bring his to his next visit with him so that she can become aware of the general recommendations related to the patient's management. Total time: 55 minutes
[2021-12-19 12:07] VITALS: BP 145/90; PULSE 96; RESP 18; TEMP 36.1; BMI 34.8
[2021-12-23 13:38] VITALS: BP 130/89; PULSE 94; TEMP 36.2; BMI 34.8
--- NOTE | 2021-12-23 14:07 | HP.PCM_ITS ---
History of Present Illness Date of Service: 12/23/21 Chief Complaint: Ulceration, left posterior calf History of Wound: This is a 76-year-old male with an extensive past medical history. He presented with a small ulceration on the left posterior calf. He was recently hospitalized as an inpatient at [facility] from November 30 to December 03, treated for cellulitis of the right lower extremity and sepsis. Sepsis was thought to be secondary to a MRSE bacteremia from pneumonia. During his inpatient stay, the patient was hypoxic, and he was treated with vancomycin and Zosyn intravenously. He was discharged on oral Levaquin. A venous duplex examination performed on December 01 revealed no evidence of lower extremity thrombophlebitis. Laboratory studies performed on December 03 were as follows: White blood count 5.7, hemoglobin 10.7, hematocrit 35.5, protein 5.6 (low), and albumin 2.4 (low). Patient suffers from multiple pre-existing medical problems, listed below. He is not diabetic. [facility] Medical History Atherosclerosis of coronary artery of [place] heart without angina pectoris Atrial fibrillation Brantley's esophagus with esophagitis CAD (coronary artery disease) Chronic anticoagulation Chronic depression Chronic kidney disease, stage 3 Chronic kidney disease, stage III (moderate) Depression Essential hypertension GERD (gastroesophageal reflux disease) Hearing deficit History of left heart catheterization (LHC) (~05/20/21) History of septic shock (04/02/16) Hyperlipidemia Hypothyroidism Iron deficiency anemia Left leg swelling Lipodermatosclerosis Obesity (BMI 35.0-39.9 without comorbidity) Obstructive sleep apnea Right leg swelling Sleep apnea Ulcer of left calf Home Medications apixaban 5 mg tablet (Eliquis) 5 mg PO BID blood thinner 11/07/18 [History Last Taken 06/02/21] atorvastatin 40 mg tablet 40 mg PO QHS cholesterol 11/07/18 [History Last Taken Unknown] pantoprazole 40 mg tablet,delayed release 40 mg PO DAILY gerd 11/07/18 [History Last Taken 09/10/20] trospium 20 mg tablet 20 mg PO BID bladder 07/18/19 [History Last Taken 12/03/20] carboxymethylcellulose sodium 1 % eye liquid gel drops 1 drp RIGHT EYE DAILY dry eyes 06/02/21 [History Last Taken Unknown] prednisolone acetate 1 % eye drops,suspension 1 drp LEFT EYE TID eye drops 06/02/21 [History Last Taken Unknown] acetaminophen 500 mg tablet 1,000 mg PO Q6H PRN pain 07/22/21 [History Last Taken Unknown] aspirin 81 mg tablet,delayed release (Adult Low Dose Aspirin) 81 mg PO DAILY antiplatelet 07/22/21 [History Last Taken 11/29/21] cyanocobalamin (vitamin B-12) 1,000 mcg tablet 1,000 mcg PO BID vitamin 07/22/21 [History Last Taken Unknown] nitroglycerin 0.4 mg sublingual tablet 0.4 mg sublingual Q5M PRN Chest Pain 08/26/21 [History Last Taken Unknown] potassium klor-con 20 meq PO DAILY potassium replacement 08/26/21 [History Last Taken Unknown] divalproex 250 mg tablet,delayed release 250 mg PO BID mood, depression 09/15/21 [History Last Taken Unknown] levothyroxine 25 mcg tablet 25 mcg PO DAILY thyroid 09/15/21 [History Last Taken Unknown] amiodarone 200 mg tablet 200 mg PO DAILYCM Afib 11/30/21 [History Last Taken Unknown] fluoxetine 20 mg capsule 20 mg PO DAILY mental health 11/30/21 [History Last Taken Unknown] metoprolol tartrate 50 mg tablet 50 mg PO BID heart 11/30/21 [History Last Taken Unknown] furosemide 40 mg tablet (Lasix) 60 mg PO DAILY 12/16/21 [History Last Taken Unknown] qvxewwdz-vfu-fjvhx acid 300 mcg-lycopene 600 mcg-lutein 300 mcg tablet (Centrum Silver Men) 1 tab PO DAILY 12/16/21 [History Last Taken Unknown] Allergy/AdvReac Type Severity Reaction Status Date / Time No Known Allergies Allergy Verified 12/19/21 14:39 Family History Father Cancer Lung Mother Heart disease Brother Heart disease CVA (cerebral vascular accident) Brother Heart disease Brother Heart disease Surgical History History of bilateral knee replacement History of coronary artery bypass graft x 3 (~05/27/21) History of total left knee replacement History of total right knee replacement Stented coronary artery (04/14/07) Social History household members: spouse housing: apartment pets and animals: No Smoking Status: Never smoker alcohol intake: never substance use type: does not use caffeine: Yes Type: carbonated beverages Number of servings: 1 Vital Signs Vital Signs Vital Signs: 12/23/21 13:38 Temperature 97.2 F L Temperature Source Temporal Pulse Rate 94 Blood Pressure 130/89 H Blood Pressure Mean 102 Blood Pressure Source Monitor Weight Weight: 250 lb Body Mass Index (BMI) 34.8 Physical Exam Const alert, oriented x3, no apparent distress and well nourished Constitutional Narrative: The patient is obese General Appearance: cooperative, comfortable, well kempt and well developed Orientation / Consciousness: awake, oriented to person, oriented to place and oriented to time Exam Limitations: no limitations HEENT normocephalic and head/scalp atraumatic Head and Scalp: normal to inspection, normocephalic and atraumatic General Ear: hearing grossly impaired External Ear: external ears normal Eyes PERRL and EOMs intact bilaterally General Eye: normal appearance of both eyes Resp normal respiratory effort, normal air movement, no retractions and no use of accessory muscles Effort and Inspection: able to speak in complete sentences and symmetric chest movement Extremity no calf tenderness General Extremity: Negative for clubbing or cyanosis Skin Wound Narrative: Swelling and edema are noted bilaterally in the patient's lower extremities. However, there has been improvement since the patient's visit 1 week ago. Lipodermatosclerosis is noted in the gaiter areas bilaterally. A small ulceration is noted on the left posterior calf. There is no sign of infection or cellulitis. Dimensions are documented elsewhere. There is a moderate amount of bioburden. Neuro oriented x3, CN's II-XII intact bilaterally, moves all extremities and no focal motor deficits Sensorium / Orientation: awake, alert, oriented to person, oriented to place and oriented to time Psych Appearance: grossly normal and appropriate Attitude: calm Activity / Motor Behavior: appropriate eye contact Speech: normal speech Mood & Affect: euthymic mood Thought Process: normal thought process Thought Content: normal thought content Attention / Concentration: attention grossly intact Debridement Note Debridement Note Wound debrided: Left posterior calf Laterality: Left Type of Debridement: Excisional debridement Anesthesia Used: 5% Lidocaine Gel Depth: Down to and including healthy tissue and in the subcutaneous layer Percentage of wound debrided: 100 Instrument Used: 3mm curette Tissue Removed: Bioburden and nonviable tissue Severity: Fat Layer Exposed Amount of bleeding with debridement: Mild Bleeding Controlled with: Compression and gauze Patient tolerated procedure: Patient tolerated procedure well Post-Debridement Measurements and Additional Note: Post-Debridement Measurements/Treatment WC - Nurse 1 - General Ulcer Assessment Start: 12/16/21 10:29 Freq: Status: Active Protocol: SHARRI Activity Type Activity Date Activity User E-sign Co-sign Detail Recorded Client Recorded Date Recorded By Document 12/16/21 10:29 MW [id number] 12/16/21 10:48 MW Document 12/19/21 12:07 RB [id number] 12/19/21 12:10 RB Document 12/23/21 13:38 AK [id number] 12/23/21 13:41 AK 12/16/21 12/19/21 12/23/21 10:29 12:07 13:38 WC - Today's Visit Information Type of service Initial Visit Nurse-only Follow-up Visit Visit (Physician/[facility] ) Arrival Mode Ambulatory Ambulatory Ambulatory Transfer Assistance None None Accompanied by self Patient Identification Verified (Name & Yes Yes Yes ) Patient Requires Transmission-Based No No Precautions Safety Precautions NA NA Height and Weight Height 5 ft 11 in Weight 250 lb Weight in Pounds 250.0 lbs Body Mass Index (BMI) 34.8 34.8 34.8 BMI Classification Obese Obese Obese BSA - Ayaan 2.32 Vital Signs Temperature (97.8 F-99.1 F) 97.3 F L 97 F L 97.2 F L Temperature Source Temporal Temporal Temporal Pulse Rate (60-100) 88 96 94 Pulse Location Monitor Monitor Monitor Respiratory Rate (12-18) 18 18 Respiratory rate source Observation Observation Oxygen Delivery Method Room Air Blood Pressure (90/60-120/80) 132/86 H 145/90 H 130/89 H Blood Pressure Mean 101 108 102 Source Monitor Monitor Monitor Position Supine Sitting Blood Pressure Location Left Arm Left Arm History Since Last Visit- (Skip if this is Patient's initial visit) Have you changed medications since your No No last visit? Any new allergies or adverse reactions No No Had a fall/change in ADL's that may No No increase risk of falls Signs or symptoms of abuse and/or No No neglect since last visit Have you been in the hospital since your No No last visit? Has dressing in place as prescribed Yes Yes Has compression in place as prescribed Yes Yes Has offloadiing in place as prescribed No N/A Experienced any changes in pain level or No No management Left Footwear Regular Shoe Regular Shoe Right Footwear Regular Shoe Regular Shoe Pain Scale: 0-10 Numeric Is Patient Pain Free? Yes Yes No Lower Extremity Assessment/ Foot Assessment/ Toe Nail Assessment Right -Posterior Tibial Palpable No -Posterior Tibial Doppler Inaudible -Dorsalis Pedis Palpable No -Dorsalis Pedis Doppler Inaudible -Extremity Color Red,Hemosiderin -Hair Growth on Legs No -Hair Growth on Toes No -Temperature of Extremity Warm -Capillary Refill Greater than 3 Seconds -Dependent Rubor No -Lipodermatosclerosis No -Other Deformity No -Prior Foot Ulcer No -Charcot Joint No -Prior Amputation No -Thick Yes -Discolored Yes -Deformed No -Improper Length & Hygeine Yes Left -Posterior Tibial Palpable No -Posterior Tibial Doppler Inaudible -Dorsalis Pedis Palpable No -Dorsalis Pedis Doppler Inaudible -Extremity Color Red -Hair Growth on Legs No -Hair Growth on Toes No -Temperature of Extremity Warm -Capillary Refill Greater than 3 Seconds -Dependent Rubor No -Lipodermatosclerosis No -Other Deformity No -Prior Foot Ulcer No -Charcot Joint No -Prior Amputation No -Thick Yes -Discolored Yes -Deformed No -Improper Length & Hygeine Yes Neuropathy Assessment Feet - Top Side and Bottom <Entered> (a) Communication Assessment Preferred language 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 Able to Read Yes Able to Write Yes Communication Tools None Caregiver Communication Skills No Impairment Impairment Right Hearing Abillity Use of Hearing Aid Left Hearing Abillity Use of Hearing Aid Visual Assistive Devices Glasses Teaching Assessment Preferences Verbal,Written, Audio/Visual, Demonstration Barriers to Learning None Readiness To Learn Excellent Willingness to Engage in Self Management High Activies Readiness to Engage in Self Management High Activities Anxiety Level Calm Cooperation Cooperative Perception Coherent Interest in Health Problem Asks Questions Education Importance Acknowledges Need Does Patient Smoke tobacco or other No substances Smoking Status Never smoker Is Patient Diabetic No (a) 1 - + WC - Nurse 1 - General Ulcer Measurement Start: 12/16/21 10:29 Freq: Status: Active Protocol: Activity Type Activity Date Activity User E-sign Co-sign Detail Recorded Client Recorded Date Recorded By Document 12/16/21 10:29 MW [id number] 12/16/21 10:48 MW Document 12/19/21 12:07 RB [id number] 12/19/21 12:10 RB Document 12/23/21 13:38 AK [id number] 12/23/21 13:41 AK 12/16/21 12/19/21 12/23/21 10:29 12:07 13:38 Wound Center Nurse 1 #1 left posterior LE -Combined with other wound No No -Current Size (cm) - Length 0.4 0.5 -Current Size (cm) - Width 0.5 0.4 -Current Size (cm) - Depth 0.1 0.2 -Total Square Cm 0.20 0.20 -Date of Last Picture (Recall this 12/16/21 field) -Photo Taken Yes Yes -Epithelialization None Present -Tunneling No No -Undermining/Tunneling No No -Circular Undermining No No -Change in Wound Grade/Stage No -Exudate Amt None Present Medium -Exudate Type Serosanguineous -Wound Margin Flat & Intact Distinct, Outline Attached -Granulation Amt None Present (0 Medium (34-66%) %) -Granulation Quality N/A [place] -Slough/Fibrin Yes No -Necrosis Amt Large (67-100%) None Present (0 %) -Necrotic Tissue Type Adherent Slough -Structure Exposed N/A N/A -Texture (Floridalma-wound Skin Appearance) Assessed, No Abnormality, Localized Edema Assessed ,Scarring -Moisture ([place]ma-wound Skin Appearance) Assessed,Dry/ No Abnormality, Scaly Assessed -Color ([place]ma-wound Skin Appearance) Assessed,Rubor No Abnormality, Assessed -Temperature ([place]ma-wound Skin No Abnormality No Abnormality Appearance) (Pt Warm) (Pt Warm) -Tenderness on Palpation ([place]ma-wound No No Skin Appearance) -Ulcer Cleansing Rinsed/ Soap and Water Irrigated with Saline -Foul Odor after Cleansing No No -Anesthetic Used 4% Lidocaine 5% Lidocaine Solution Gel Lower Limb Edema Present Yes Yes Right Calf (cm) 43.0 40 37 Right Ankle (cm) 31.0 29.5 28 Left Calf (cm) 45.0 40.5 39 Left Ankle (cm) 30.5 28 29 WC - Nurse 2 - General Ulcer CM Notes Start: 12/16/21 10:29 Freq: Status: Active Protocol: Activity Type Activity Date Activity User E-sign Co-sign Detail Recorded Client Recorded Date Recorded By Document 12/16/21 11:44 PL [id number] 12/16/21 11:45 PL 12/16/21 11:44 Wound Center Nurse 2 #1 left posterior LE -Time 11:04 -Correct Patient Yes -Correct Side, Site, Position Yes -Correct Procedure Yes -Procedure Performed Yes -Type of Procedure Debridement -Clinical Debridement Subcutaneous -Tissue Removed Subcutaneous -Post Debridement (cm) - Length 0.4 -Post Debridement (cm) - Width 0.5 -Post Debridement (cm) - Depth 0.1 -Total Square (Post) (cm) 0.20 -Area of Debridement (cm) - Length 0.4 -Area of Debridement (cm) - Width 0.5 -Total Square (Area) (cm) 0.20 -Tunneling No -Undermining/Tunneling No -Circular Undermining No -Wound/Ulcer Outcome Not Healed -Ulcer Cleansing Rinsed/ Irrigated with Saline -Foul Odor after Cleansing No -Bioengineered Tissue No -Bleeding Controlled with Pressure -Treatment Response Procedure Tolerated Well -Debridement - Subq, 1st 20sq cm Yes Pain Scale: 0-10 Numeric Is Patient Pain Free? Yes WC - Nurse 3 - General Ulcer D/C NN Start: 12/16/21 10:29 Freq: Status: Active Protocol: Activity Type Activity Date Activity User E-sign Co-sign Detail Recorded Client Recorded Date Recorded By Document 12/17/21 07:32 PL [id number] 12/17/21 07:32 Document 12/19/21 12:07 RB [id number] 12/19/21 12:10 RB 12/17/21 12/19/21 07:32 12:07 Wound Care Nurse 3 #1 left posterior LE -Ulcer Cleansing Wound Cleanser -Primary Dressing Applied Promogran -Primary Dressing Covered/Secured with Dry Gauze -Promogran 1 bilateral -Multi-Layered Wrap Application Unna Boot - Unna Boot - Bilateral ($) Bilateral ($) -Unna Boots (Bilat) ($) 2 2 Treatment Response Procedure Tolerated Well Vital Signs Temperature (97.8 F-99.1 F) 97 F L Temperature Source Temporal Pulse Rate (60-100) 96 Pulse Location Monitor Respiratory Rate (12-18) 18 Respiratory rate source Observation Blood Pressure (90/60-120/80) 145/90 H Blood Pressure Mean 108 Source Monitor Position Sitting Blood Pressure Location Left Arm Pain Scale: 0-10 Numeric Is Patient Pain Free? Yes Yes WC - Visit Discharge Discharge Condition Stable Ambulatory Status Ambulatory Transportation Private Auto Medication Reconcilliation completed & No provided to patient/care provider Clinical Summary of Care Provided Yes Assessment/Plan Assessment/Plan (1) Ulcer of left calf: CODE(S): L97.229 - Non-pressure chronic ulcer of left calf with unspecified severity QUALIFIERS: Non-pressure ulcer stage: with fat layer exposed Qualified Code(s): L97.222 - Non-pressure chronic ulcer of left calf with fat layer exposed (2) Left leg swelling: CODE(S): M79.89 - Other specified soft tissue disorders (3) Right leg swelling: CODE(S): M79.89 - Other specified soft tissue disorders (4) Lipodermatosclerosis: CODE(S): I83.10 - Varicose veins of unspecified lower extremity with inflammation QUALIFIERS: Laterality: bilateral Qualified Code(s): I83.11 - Varicose veins of right lower extremity with inflammation; I83.12 - Varicose veins of left lower extremity with inflammation (5) Obesity (BMI 35.0-39.9 without comorbidity): CODE(S): E66.9 - Obesity, unspecified (6) History of atrial fibrillation: CODE(S): Z86.79 - Personal history of other diseases of the circulatory system (7) Chronic anticoagulation: CODE(S): 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 (8) Hx of CABG: CODE(S): Z95.1 - Presence of aortocoronary bypass graft (9) Chronic kidney disease, stage III (moderate): CODE(S): N18.30 - Chronic kidney disease, stage 3 unspecified (10) Central sleep apnea: CODE(S): G47.31 - Primary central sleep apnea (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: CODE(S): G47.31 - Primary central sleep apnea (12) History of coronary artery bypass graft x 3: CODE(S): Z95.1 - Presence of aortocoronary bypass graft (13) Hyperlipidemia: CODE(S): E78.5 - Hyperlipidemia, unspecified (14) Brantley esophagus: CODE(S): K22.70 - Brantley's esophagus without dysplasia (15) CAD (coronary artery disease): CODE(S): I25.10 - Atherosclerotic heart disease of [place] coronary artery without angina pectoris (16) Debility: CODE(S): R53.81 - Other malaise (17) MARTINEZ (dyspnea on exertion): CODE(S): R06.00 - Dyspnea, unspecified (18) Essential hypertension: CODE(S): I10 - Essential (primary) hypertension (19) GERD (gastroesophageal reflux disease): CODE(S): K21.9 - Gastro-esophageal reflux disease without esophagitis (20) Hypothyroidism: CODE(S): E03.9 - Hypothyroidism, unspecified (21) History of septic shock: CODE(S): Z86.19 - Personal history of other infectious and parasitic diseases (22) Stented coronary artery: CODE(S): Z95.5 - Presence of coronary angioplasty implant and graft (23) History of bilateral knee replacement: CODE(S): Z96.653 - Presence of artificial knee joint, bilateral (24) Hearing deficit: CODE(S): H91.90 - Unspecified hearing loss, unspecified ear PLAN: Plan This is a 76-year-old male recently hospitalized as an inpatient for treatment of MRSE bacteremia and pneumonia, as well as cellulitis of the right lower extremity. The infectious processes appear to be resolved, as the patient has received intravenous antibiotics while an inpatient, with Levaquin prescribed orally upon discharge. He presented at the wound center with a small ulceration on the left posterior calf. The etiology is uncertain. The patient has multiple pre-existing medical problems. Nutritional status appears to be suboptimal, based upon recent laboratory results. The patient has been encouraged to optimize his nutritional intake. Relative to the swelling and edema in his lower extremities, he has been advised to elevate his lower extremities to heart level, or higher, as much as possible. He claims to sleep on a flat mattress at night. He is to elevate his lower extremities is much as possible even during daytime hours. We are to continue the use of Unna boots which will be applied topically to each lower extremity, and changed twice weekly. Promogran will be applied topically to the left posterior calf ulceration with each change of the zinc oxide wraps. The patient is return in 1 week for reassessment. Weight loss has been recommended. Nutritional optimization has been recommended. Activity has been encouraged. Prolonged, idle sitting has been discouraged. The patient's accompanied him to his visit today, and she is now well aware of the measures to be implemented regarding control of swelling in the patient's lower extremities. Total time: 28 minutes
[2021-12-26 11:44] VITALS: BP 142/79; PULSE 101; RESP 18; TEMP 36.1; BMI 34.8
[2021-12-30 11:30] VITALS: BP 126/87; PULSE 72; TEMP 36.4; BMI 34.8
--- NOTE | 2021-12-30 13:07 | HP.PCM_ITS ---
History of Present Illness Date of Service: 12/30/21 Chief Complaint: Ulceration, left posterior calf History of Wound: This is a 76-year-old male with an extensive past medical history. He presented with a small ulceration on the left posterior calf. He was recently hospitalized as an inpatient at [facility] from November 30 to December 03, treated for cellulitis of the right lower extremity and sepsis. Sepsis was thought to be secondary to a MRSE bacteremia from pneumonia. During his inpatient stay, the patient was hypoxic, and he was treated with vancomycin and Zosyn intravenously. He was discharged on oral Levaquin. A venous duplex examination performed on December 01 revealed no evidence of lower extremity thrombophlebitis. Laboratory studies performed on December 03 were as follows: White blood count 5.7, hemoglobin 10.7, hematocrit 35.5, protein 5.6 (low), and albumin 2.4 (low). Patient suffers from multiple pre-existing medical problems, listed below. He is not diabetic. [facility] Medical History Atherosclerosis of coronary artery of [place] heart without angina pectoris Atrial fibrillation Brantley's esophagus with esophagitis CAD (coronary artery disease) Chronic anticoagulation Chronic depression Chronic kidney disease, stage 3 Chronic kidney disease, stage III (moderate) Depression Essential hypertension GERD (gastroesophageal reflux disease) Hearing deficit History of left heart catheterization (LHC) (~05/20/21) History of septic shock (04/02/16) Hyperlipidemia Hypothyroidism Iron deficiency anemia Left leg swelling Lipodermatosclerosis Obesity (BMI 35.0-39.9 without comorbidity) Obstructive sleep apnea Right leg swelling Sleep apnea Ulcer of left calf Home Medications apixaban 5 mg tablet (Eliquis) 5 mg PO BID blood thinner 11/07/18 [History Last Taken 06/02/21] atorvastatin 40 mg tablet 40 mg PO QHS cholesterol 11/07/18 [History Last Taken Unknown] pantoprazole 40 mg tablet,delayed release 40 mg PO DAILY gerd 11/07/18 [History Last Taken 09/10/20] trospium 20 mg tablet 20 mg PO BID bladder 07/18/19 [History Last Taken 12/03/20] carboxymethylcellulose sodium 1 % eye liquid gel drops 1 drp RIGHT EYE DAILY dry eyes 06/02/21 [History Last Taken Unknown] prednisolone acetate 1 % eye drops,suspension 1 drp LEFT EYE TID eye drops 06/02/21 [History Last Taken Unknown] acetaminophen 500 mg tablet 1,000 mg PO Q6H PRN pain 07/22/21 [History Last Taken Unknown] aspirin 81 mg tablet,delayed release (Adult Low Dose Aspirin) 81 mg PO DAILY antiplatelet 07/22/21 [History Last Taken 11/29/21] cyanocobalamin (vitamin B-12) 1,000 mcg tablet 1,000 mcg PO BID vitamin 07/22/21 [History Last Taken Unknown] nitroglycerin 0.4 mg sublingual tablet 0.4 mg sublingual Q5M PRN Chest Pain 08/26/21 [History Last Taken Unknown] potassium klor-con 20 meq PO DAILY potassium replacement 08/26/21 [History Last Taken Unknown] divalproex 250 mg tablet,delayed release 250 mg PO BID mood, depression 09/15/21 [History Last Taken Unknown] levothyroxine 25 mcg tablet 25 mcg PO DAILY thyroid 09/15/21 [History Last Taken Unknown] amiodarone 200 mg tablet 200 mg PO DAILYCM Afib 11/30/21 [History Last Taken Unknown] fluoxetine 20 mg capsule 20 mg PO DAILY mental health 11/30/21 [History Last Taken Unknown] metoprolol tartrate 50 mg tablet 50 mg PO BID heart 11/30/21 [History Last Taken Unknown] furosemide 40 mg tablet (Lasix) 60 mg PO DAILY 12/16/21 [History Last Taken Unknown] rhbgreld-jbm-myeor acid 300 mcg-lycopene 600 mcg-lutein 300 mcg tablet (Centrum Silver Men) 1 tab PO DAILY 12/16/21 [History Last Taken Unknown] Allergy/AdvReac Type Severity Reaction Status Date / Time No Known Allergies Allergy Verified 12/19/21 14:39 Family History Father Cancer Lung Mother Heart disease Brother Heart disease CVA (cerebral vascular accident) Brother Heart disease Brother Heart disease Surgical History History of bilateral knee replacement History of coronary artery bypass graft x 3 (~05/27/21) History of total left knee replacement History of total right knee replacement Stented coronary artery (04/14/07) Social History household members: spouse housing: apartment pets and animals: No Smoking Status: Never smoker alcohol intake: never substance use type: does not use caffeine: Yes Type: carbonated beverages Number of servings: 1 Vital Signs Vital Signs Vital Signs: 12/30/21 11:30 Temperature 97.6 F L Temperature Source Temporal Pulse Rate 72 Blood Pressure 126/87 H Blood Pressure Mean 100 Blood Pressure Source Monitor Blood Pressure Position Sitting Blood Pressure Location Right Arm Weight Weight: 250 lb Body Mass Index (BMI) 34.8 Physical Exam Const alert, oriented x3, no apparent distress and well nourished Constitutional Narrative: The patient is obese General Appearance: cooperative, comfortable, well kempt and well developed Orientation / Consciousness: awake, oriented to person, oriented to place and oriented to time Exam Limitations: no limitations HEENT normocephalic and head/scalp atraumatic Head and Scalp: normal to inspection, normocephalic and atraumatic General Ear: hearing grossly impaired External Ear: external ears normal Eyes PERRL and EOMs intact bilaterally General Eye: normal appearance of both eyes Resp normal respiratory effort, normal air movement, no retractions and no use of accessory muscles Effort and Inspection: able to speak in complete sentences and symmetric chest movement Extremity no calf tenderness General Extremity: Negative for clubbing or cyanosis Skin Wound Narrative: Swelling and edema are noted bilaterally in the patient's lower extremities, but much improved. Lipodermatosclerosis is noted in the gaiter areas bilaterally. A small ulceration is noted on the left posterior calf, which has decreased in size since the patient's last visit. There is no sign of infection or cellulitis. Dimensions are documented elsewhere. There is a moderate amount of bioburden. Neuro oriented x3, CN's II-XII intact bilaterally, moves all extremities and no focal motor deficits Sensorium / Orientation: awake, alert, oriented to person, oriented to place and oriented to time Psych Appearance: grossly normal and appropriate Attitude: calm Activity / Motor Behavior: appropriate eye contact Speech: normal speech Mood & Affect: euthymic mood Thought Process: normal thought process Thought Content: normal thought content Attention / Concentration: attention grossly intact Debridement Note Debridement Note Wound debrided: Left posterior calf Laterality: Left Type of Debridement: Excisional debridement Anesthesia Used: 5% Lidocaine Gel Depth: Down to and including healthy tissue and in the subcutaneous layer Percentage of wound debrided: 100 Instrument Used: 3mm curette Tissue Removed: Bioburden and nonviable tissue Severity: Fat Layer Exposed Amount of bleeding with debridement: Mild Bleeding Controlled with: Compression and gauze Patient tolerated procedure: Patient tolerated procedure well Post-Debridement Measurements and Additional Note: Post-Debridement Measurements/Treatment WC - Nurse 1 - General Ulcer Assessment Start: 12/16/21 10:29 Freq: Status: Active Protocol: SHARRI Activity Type Activity Date Activity User E-sign Co-sign Detail Recorded Client Recorded Date Recorded By Document 12/16/21 10:29 MW [id number] 12/16/21 10:48 MW Document 12/19/21 12:07 RB [id number] 12/19/21 12:10 RB Document 12/23/21 13:38 AK [id number] 12/23/21 13:41 AK Document 12/26/21 11:44 RB [id number] 12/26/21 11:46 RB Document 12/30/21 11:30 AK [id number] 12/30/21 11:33 AK 12/16/21 12/19/21 12/23/21 10:29 12:07 13:38 - Today's Visit Information Type of service Initial Visit Nurse-only Follow-up Visit Visit (Physician/[facility] ) Arrival Mode Ambulatory Ambulatory Ambulatory Transfer Assistance None None Accompanied by self Patient Identification Verified (Name & Yes Yes Yes ) Patient Requires Transmission-Based No No Precautions Safety Precautions NA NA Height and Weight Height 5 ft 11 in Weight 250 lb Weight in Pounds 250.0 lbs Body Mass Index (BMI) 34.8 34.8 34.8 BMI Classification Obese Obese Obese BSA - Ayaan 2.32 Vital Signs Temperature (97.8 F-99.1 F) 97.3 F L 97 F L 97.2 F L Temperature Source Temporal Temporal Temporal Pulse Rate (60-100) 88 96 94 Pulse Location Monitor Monitor Monitor Respiratory Rate (12-18) 18 18 Respiratory rate source Observation Observation Oxygen Delivery Method Room Air Blood Pressure (90/60-120/80) 132/86 H 145/90 H 130/89 H Blood Pressure Mean 101 108 102 Source Monitor Monitor Monitor Position Supine Sitting Blood Pressure Location Left Arm Left Arm History Since Last Visit- (Skip if this is Patient's initial visit) Have you changed medications since your No No last visit? Any new allergies or adverse reactions No No Had a fall/change in ADL's that may No No increase risk of falls Signs or symptoms of abuse and/or No No neglect since last visit Have you been in the hospital since your No No last visit? Has dressing in place as prescribed Yes Yes Has compression in place as prescribed Yes Yes Has offloadiing in place as prescribed No N/A Experienced any changes in pain level or No No management Left Footwear Regular Shoe Regular Shoe Right Footwear Regular Shoe Regular Shoe Pain Scale: 0-10 Numeric Is Patient Pain Free? Yes Yes No Lower Extremity Assessment/ Foot Assessment/ Toe Nail Assessment Right -Posterior Tibial Palpable No -Posterior Tibial Doppler Inaudible -Dorsalis Pedis Palpable No -Dorsalis Pedis Doppler Inaudible -Extremity Color Red,Hemosiderin -Hair Growth on Legs No -Hair Growth on Toes No -Temperature of Extremity Warm -Capillary Refill Greater than 3 Seconds -Dependent Rubor No -Lipodermatosclerosis No -Other Deformity No -Prior Foot Ulcer No -Charcot Joint No -Prior Amputation No -Thick Yes -Discolored Yes -Deformed No -Improper Length & Hygeine Yes Left -Posterior Tibial Palpable No -Posterior Tibial Doppler Inaudible -Dorsalis Pedis Palpable No -Dorsalis Pedis Doppler Inaudible -Extremity Color Red -Hair Growth on Legs No -Hair Growth on Toes No -Temperature of Extremity Warm -Capillary Refill Greater than 3 Seconds -Dependent Rubor No -Lipodermatosclerosis No -Other Deformity No -Prior Foot Ulcer No -Charcot Joint No -Prior Amputation No -Thick Yes -Discolored Yes -Deformed No -Improper Length & Hygeine Yes Neuropathy Assessment Feet - Top Side and Bottom <Entered> (a) Communication Assessment Preferred language [place] [employer] Worker Required No Able to Read Yes Able to Write Yes Communication Tools None Caregiver Communication Skills No Impairment Impairment Right Hearing Abillity Use of Hearing Aid Left Hearing Abillity Use of Hearing Aid Visual Assistive Devices Glasses Teaching Assessment Preferences Verbal,Written, Audio/Visual, Demonstration Barriers to Learning None Readiness To Learn Excellent Willingness to Engage in Self Management High Activies Readiness to Engage in Self Management High Activities Anxiety Level Calm Cooperation Cooperative Perception Coherent Interest in Health Problem Asks Questions Education Importance Acknowledges Need Does Patient Smoke tobacco or other No substances Smoking Status Never smoker Is Patient Diabetic No 12/26/21 12/30/21 11:44 11:30 WC - Today's Visit Information Type of service Nurse-only Follow-up Visit Visit (Physician/[facility] ) Arrival Mode Ambulatory,Cane Ambulatory Transfer Assistance None Accompanied by Patient Identification Verified (Name & Yes Yes ) Patient Requires Transmission-Based No Precautions Safety Precautions Height and Weight Height Weight Weight in Pounds Body Mass Index (BMI) 34.8 34.8 BMI Classification Obese Obese BSA - Ayaan Vital Signs Temperature (97.8 F-99.1 F) 97 F L 97.6 F L Temperature Source Temporal Temporal Pulse Rate (60-100) 101 H 72 Pulse Location Monitor Monitor Respiratory Rate (12-18) 18 Respiratory rate source Observation Oxygen Delivery Method Blood Pressure (90/60-120/80) 142/79 H 126/87 H Blood Pressure Mean 100 100 Source Monitor Monitor Position Semi-Fowlers Sitting Blood Pressure Location Left Arm Right Arm History Since Last Visit- (Skip if this is Patient's initial visit) Have you changed medications since your No No last visit? Any new allergies or adverse reactions No No Had a fall/change in ADL's that may No No increase risk of falls Signs or symptoms of abuse and/or No No neglect since last visit Have you been in the hospital since your No No last visit? Has dressing in place as prescribed Yes Yes Has compression in place as prescribed Yes Yes Has offloadiing in place as prescribed No N/A Experienced any changes in pain level or No management Left Footwear Regular Shoe Right Footwear Regular Shoe Pain Scale: 0-10 Numeric Is Patient Pain Free? Yes Yes Lower Extremity Assessment/ Foot Assessment/ Toe Nail Assessment Right -Posterior Tibial Palpable -Posterior Tibial Doppler -Dorsalis Pedis Palpable -Dorsalis Pedis Doppler -Extremity Color -Hair Growth on Legs -Hair Growth on Toes -Temperature of Extremity -Capillary Refill -Dependent Rubor -Lipodermatosclerosis -Other Deformity -Prior Foot Ulcer -Charcot Joint -Prior Amputation -Thick -Discolored -Deformed -Improper Length & Hygeine Left -Posterior Tibial Palpable -Posterior Tibial Doppler -Dorsalis Pedis Palpable -Dorsalis Pedis Doppler -Extremity Color -Hair Growth on Legs -Hair Growth on Toes -Temperature of Extremity -Capillary Refill -Dependent Rubor -Lipodermatosclerosis -Other Deformity -Prior Foot Ulcer -Charcot Joint -Prior Amputation -Thick -Discolored -Deformed -Improper Length & Hygeine Neuropathy Assessment Feet - Top Side and Bottom Communication Assessment Preferred threading machine tender Required Able to Read Able to Write Communication Tools Caregiver Communication Skills Impairment Right Hearing Abillity Left Hearing Abillity Visual Assistive Devices Teaching Assessment Preferences Barriers to Learning Readiness To Learn Willingness to Engage in Self Management Activies Readiness to Engage in Self Management Activities Anxiety Level Cooperation Perception Interest in Health Problem Education Importance Does Patient Smoke tobacco or other substances Smoking Status Is Patient Diabetic (a) 1 - + WC - Nurse 1 - General Ulcer Measurement Start: 12/16/21 10:29 Freq: Status: Active Protocol: Activity Type Activity Date Activity User E-sign Co-sign Detail Recorded Client Recorded Date Recorded By Document 12/16/21 10:29 MW [id number] 12/16/21 10:48 MW Document 12/19/21 12:07 RB [id number] 12/19/21 12:10 RB Document 12/23/21 13:38 AK [id number] 12/23/21 13:41 AK Document 12/26/21 11:44 RB [id number] 12/26/21 11:46 RB Document 12/30/21 11:30 AK [id number] 12/30/21 11:33 AK 12/16/21 12/19/21 12/23/21 10:29 12:07 13:38 Wound Center Nurse 1 #1 left posterior LE -Combined with other wound No No -Current Size (cm) - Length 0.4 0.5 -Current Size (cm) - Width 0.5 0.4 -Current Size (cm) - Depth 0.1 0.2 -Total Square Cm 0.20 0.20 -Date of Last Picture (Recall this 12/16/21 field) -Photo Taken Yes Yes -Epithelialization None Present -Tunneling No No -Undermining/Tunneling No No -Circular Undermining No No -Change in Wound Grade/Stage No -Exudate Amt None Present Medium -Exudate Type Serosanguineous -Wound Margin Flat & Intact Distinct, Outline Attached -Granulation Amt None Present (0 Medium (34-66%) %) -Granulation Quality N/A [place] -Slough/Fibrin Yes No -Necrosis Amt Large (67-100%) None Present (0 %) -Necrotic Tissue Type Adherent Slough -Structure Exposed N/A N/A -Texture ([place]-wound Skin Appearance) Assessed, No Abnormality, Localized Edema Assessed ,Scarring -Moisture ([place]-wound Skin Appearance) Assessed,Dry/ No Abnormality, Scaly Assessed -Color ([place]-wound Skin Appearance) Assessed,Rubor No Abnormality, Assessed -Temperature ([place]-wound Skin No Abnormality No Abnormality Appearance) (Pt Warm) (Pt Warm) -Tenderness on Palpation ([place]-wound No No Skin Appearance) -Ulcer Cleansing Rinsed/ Soap and Water Irrigated with Saline -Foul Odor after Cleansing No No -Anesthetic Used 4% Lidocaine 5% Lidocaine Solution Gel Lower Limb Edema Present Yes Yes Right Calf (cm) 43.0 40 37 Right Ankle (cm) 31.0 29.5 28 Left Calf (cm) 45.0 40.5 39 Left Ankle (cm) 30.5 28 29 12/26/21 12/30/21 11:44 11:30 Wound Center Nurse 1 #1 left posterior LE -Combined with other wound -Current Size (cm) - Length 0.1 -Current Size (cm) - Width 0.1 -Current Size (cm) - Depth 0.1 -Total Square Cm 0.01 -Date of Last Picture (Recall this field) -Photo Taken -Epithelialization -Tunneling -Undermining/Tunneling -Circular Undermining -Change in Wound Grade/Stage -Exudate Amt None Present -Exudate Type -Wound Margin Distinct, Outline Attached -Granulation Amt None Present (0 %) -Granulation Quality -Slough/Fibrin -Necrosis Amt None Present (0 %) -Necrotic Tissue Type -Structure Exposed -Texture ([place]-wound Skin Appearance) Assessed, Scarring -Moisture ([place]-wound Skin Appearance) Assessed,Dry/ Scaly -Color ([place]-wound Skin Appearance) No Abnormality, Assessed -Temperature ([place]-wound Skin No Abnormality Appearance) (Pt Warm) -Tenderness on Palpation ([place]-wound No Skin Appearance) -Ulcer Cleansing Soap and Water -Foul Odor after Cleansing No -Anesthetic Used 5% Lidocaine Gel Lower Limb Edema Present Yes Right Calf (cm) 38.6 37 Right Ankle (cm) 28 28.5 Left Calf (cm) 39.7 40 Left Ankle (cm) 28 26.5 WC - Nurse 2 - General Ulcer CM Notes Start: 12/16/21 10:29 Freq: Status: Active Protocol: Activity Type Activity Date Activity User E-sign Co-sign Detail Recorded Client Recorded Date Recorded By Document 12/16/21 11:44 PL [id number] 12/16/21 11:45 PL Document 12/23/21 14:18 PL [id number] 12/23/21 14:19 PL Document 12/30/21 12:36 PL [id number] 12/30/21 12:36 PL 12/16/21 12/23/21 12/30/21 11:44 14:18 12:36 Wound Center Nurse 2 #1 left posterior LE -Time 11:04 13:41 11:37 -Correct Patient Yes Yes Yes -Correct Side, Site, Position Yes Yes Yes -Correct Procedure Yes Yes Yes -Procedure Performed Yes Yes Yes -Type of Procedure Debridement Debridement Debridement -Clinical Debridement Subcutaneous Subcutaneous Subcutaneous -Tissue Removed Subcutaneous Subcutaneous Subcutaneous -Post Debridement (cm) - Length 0.4 0.5 0.1 -Post Debridement (cm) - Width 0.5 0.4 0.1 -Post Debridement (cm) - Depth 0.1 0.2 0.1 -Total Square (Post) (cm) 0.20 0.20 0.01 -Area of Debridement (cm) - Length 0.4 0.5 0.1 -Area of Debridement (cm) - Width 0.5 0.4 0.1 -Total Square (Area) (cm) 0.20 0.20 0.01 -Tunneling No No No -Undermining/Tunneling No No No -Circular Undermining No No No -Wound/Ulcer Outcome Not Healed Not Healed Not Healed -Ulcer Cleansing Rinsed/ Rinsed/ Rinsed/ Irrigated with Irrigated with Irrigated with Saline Saline Saline -Foul Odor after Cleansing No No No -Bioengineered Tissue No No No -Bleeding Controlled with Pressure Pressure Pressure -Treatment Response Procedure Procedure Procedure Tolerated Well Tolerated Well Tolerated Well -Debridement - Subq, 1st 20sq cm Yes Yes Yes Pain Scale: 0-10 Numeric Is Patient Pain Free? Yes Yes Yes WC - Nurse 3 - General Ulcer D/C NN Start: 12/16/21 10:29 Freq: Status: Active Protocol: Activity Type Activity Date Activity User E-sign Co-sign Detail Recorded Client Recorded Date Recorded By Document 12/17/21 07:32 PL [id number] 12/17/21 07:32 PL Document 12/19/21 12:07 RB [id number] 12/19/21 12:10 RB Document 12/23/21 14:09 AK [id number] 12/23/21 14:10 AK Document 12/26/21 11:44 RB [id number] 12/26/21 11:46 RB Document 12/30/21 11:45 AK [id number] 12/30/21 11:46 AK 12/17/21 12/19/21 12/23/21 07:32 12:07 14:09 Wound Care Nurse 3 #1 left posterior LE -Ulcer Cleansing Wound Cleanser Rinsed/ Irrigated with Saline -Foul Odor after Cleansing No -Negative Pressure Wound Therapy N/A -Primary Dressing Applied Promogran Promogran -Other Dressing -Primary Dressing Covered/Secured with Dry Gauze Dry Gauze -Promogran 1 1 bilateral -Multi-Layered Wrap Application Unna Boot - Unna Boot - Unna Boot - Bilateral ($) Bilateral ($) Bilateral ($) -Unna Boots (Bilat) ($) 2 2 2 Treatment Response Procedure Tolerated Well Vital Signs Temperature (97.8 F-99.1 F) 97 F L Temperature Source Temporal Pulse Rate (60-100) 96 Pulse Location Monitor Respiratory Rate (12-18) 18 Respiratory rate source Observation Blood Pressure (90/60-120/80) 145/90 H Blood Pressure Mean 108 Source Monitor Position Sitting Blood Pressure Location Left Arm Pain Scale: 0-10 Numeric Is Patient Pain Free? Yes Yes Yes WC - Visit Discharge Discharge Condition Stable Stable Ambulatory Status Ambulatory Ambulatory Transportation Private Auto Private Auto Accompanied by Medication Reconcilliation completed & No Yes provided to patient/care provider Clinical Summary of Care Provided Yes Yes 12/26/21 12/30/21 11:44 11:45 Wound Care Nurse 3 #1 left posterior LE -Ulcer Cleansing Rinsed/ Irrigated with Saline -Foul Odor after Cleansing -Negative Pressure Wound Therapy -Primary Dressing Applied Promogran -Other Dressing promogran -Primary Dressing Covered/Secured with Dry Gauze Dry Gauze, Secured with Tape -Promogran 1 bilateral -Multi-Layered Wrap Application Unna Boot - Unna Boot - Bilateral ($) Bilateral ($) -Unna Boots (Bilat) ($) 2 2 Treatment Response Procedure Tolerated Well Vital Signs Temperature (97.8 F-99.1 F) 97 F L Temperature Source Temporal Pulse Rate (60-100) 101 H Pulse Location Monitor Respiratory Rate (12-18) 18 Respiratory rate source Observation Blood Pressure (90/60-120/80) 142/79 H Blood Pressure Mean 100 Source Monitor Position Semi-Fowlers Blood Pressure Location Left Arm Pain Scale: 0-10 Numeric Is Patient Pain Free? Yes Yes WC - Visit Discharge Discharge Condition Stable Stable Ambulatory Status Ambulatory,Cane Ambulatory Transportation Private Auto Private Auto Accompanied by Medication Reconcilliation completed & No provided to patient/care provider Clinical Summary of Care Provided Yes Assessment/Plan Assessment/Plan (1) Ulcer of left calf: CODE(S): L97.229 - Non-pressure chronic ulcer of left calf with unspecified severity QUALIFIERS: Non-pressure ulcer stage: with fat layer exposed Qualified Code(s): L97.222 - Non-pressure chronic ulcer of left calf with fat layer exposed (2) Left leg swelling: CODE(S): M79.89 - Other specified soft tissue disorders (3) Right leg swelling: CODE(S): M79.89 - Other specified soft tissue disorders (4) Lipodermatosclerosis: CODE(S): I83.10 - Varicose veins of unspecified lower extremity with inflammation QUALIFIERS: Laterality: bilateral Qualified Code(s): I83.11 - Varicose veins of right lower extremity with inflammation; I83.12 - Varicose veins of left lower extremity with inflammation (5) Obesity (BMI 35.0-39.9 without comorbidity): CODE(S): E66.9 - Obesity, unspecified (6) History of atrial fibrillation: CODE(S): Z86.79 - Personal history of other diseases of the circulatory system (7) Chronic anticoagulation: CODE(S): Z79.01 - FCI (current) use of anticoagulants (8) Hx of CABG: CODE(S): Z95.1 - Presence of aortocoronary bypass graft (9) Chronic kidney disease, stage III (moderate): CODE(S): N18.30 - Chronic kidney disease, stage 3 unspecified (10) Central sleep apnea: CODE(S): G47.31 - Primary central sleep apnea (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: CODE(S): G47.31 - Primary central sleep apnea (12) History of coronary artery bypass graft x 3: CODE(S): Z95.1 - Presence of aortocoronary bypass graft (13) Hyperlipidemia: CODE(S): E78.5 - Hyperlipidemia, unspecified (14) Brantley esophagus: CODE(S): K22.70 - Brantley's esophagus without dysplasia (15) CAD (coronary artery disease): CODE(S): I25.10 - Atherosclerotic heart disease of [place] coronary artery without angina pectoris (16) Debility: CODE(S): R53.81 - Other malaise (17) MARTINEZ (dyspnea on exertion): CODE(S): R06.00 - Dyspnea, unspecified (18) Essential hypertension: CODE(S): I10 - Essential (primary) hypertension (19) GERD (gastroesophageal reflux disease): CODE(S): K21.9 - Gastro-esophageal reflux disease without esophagitis (20) Hypothyroidism: CODE(S): E03.9 - Hypothyroidism, unspecified (21) History of septic shock: CODE(S): Z86.19 - Personal history of other infectious and parasitic diseases (22) Stented coronary artery: CODE(S): Z95.5 - Presence of coronary angioplasty implant and graft (23) History of bilateral knee replacement: CODE(S): Z96.653 - Presence of artificial knee joint, bilateral (24) Hearing deficit: CODE(S): H91.90 - Unspecified hearing loss, unspecified ear PLAN: Plan This is a 76-year-old male recently hospitalized as an inpatient for treatment of MRSE bacteremia and pneumonia, as well as cellulitis of the right lower extremity. The infectious processes appear to be resolved, as the patient has received intravenous antibiotics while an inpatient, with Levaquin prescribed orally upon discharge. He presented at the wound center with a small ulceration on the left posterior calf. The etiology is uncertain. The patient has multiple pre-existing medical problems. Nutritional status appears to be suboptimal, based upon recent laboratory results. The patient has been encouraged to optimize his nutritional intake. Relative to the swelling and edema in his lower extremities, he has been advised to elevate his lower extremities to heart level, or higher, as much as possible. He claims to sleep on a flat mattress at night. He is to elevate his lower extremities is much as possible even during daytime hours. The swelling appears to be much improved as compared to the prior week. We are to continue the use of Unna boots which will be applied topically to each lower extremity, and changed twice weekly. Promogran will be applied topically to the left posterior calf ulceration with each change of the zinc oxide wraps. The ulceration is noted to be smaller in size as compared to the prior week, and now nearly totally healed. The patient is return in 2 weeks for reassessment. Weight loss has been recommended. Nutritional optimization has been recommended. Activity has been encouraged. Prolonged, idle sitting has been discouraged. Total time: 29 minutes
[2022-01-06 11:26] VITALS: BP 125/86; PULSE 99; RESP 22; TEMP 36.4; BMI 34.8
== END 2022-01-07 23:59 | disposition home or self-care (01) ==
LOC: WC 11:00
PROVIDERS: PCP Family Medicine Geriatric Medicine; Visit Provider Surgery
DX: I83.222 Varicose veins of left lower extremity with both ulcer of calf and inflammation (principal); L97.222 Non-pressure chronic ulcer of left calf with fat layer exposed; N18.30 Chronic kidney disease, stage 3 unspecified; E03.9 Hypothyroidism, unspecified; E66.9 Obesity, unspecified; K21.9 Gastro-esophageal reflux disease without esophagitis; Z79.01 Long term (current) use of anticoagulants; I25.10 Atherosclerotic heart disease of native coronary artery without angina pectoris; E78.5 Hyperlipidemia, unspecified; R60.0 Localized edema; I12.9 Hypertensive chronic kidney disease with stage 1 through stage 4 chronic kidney disease, or unspecified chronic kidney disease; G47.31 Primary central sleep apnea; Z79.899 Other long term (current) drug therapy; M79.89 Other specified soft tissue disorders; I83.11 Varicose veins of right lower extremity with inflammation
CPT/HCPCS: 11042; 29580; 99213; G0463

== ENCOUNTER 2022-01-13 11:00 | Outpatient (RCR) | payer MEDICARE, OTHER, SELFPAY ==
[2021-09-17 08:31] VITALS: BMI 38.4
[2022-01-08 00:39] VITALS: BP 125/86; PULSE 99; RESP 22; TEMP 36.4; BMI 34.8
[2022-01-09 10:12] VITALS: BP 125/81; PULSE 88; TEMP 36.3; BMI 34.8
[2022-01-13 11:28] VITALS: BP 108/54; PULSE 95; RESP 18; TEMP 35.6; BMI 34.8
== END 2022-01-14 13:48 | disposition home or self-care (01) ==
LOC: WC 11:00
PROVIDERS: PCP Family Medicine Geriatric Medicine; Visit Provider Surgery
DX: Z09 Encounter for follow-up examination after completed treatment for conditions other than malignant neoplasm (principal)
CPT/HCPCS: 29580; 99213; G0463

== ENCOUNTER → 2022-01-27 | Outpatient (CLI) | payer MEDICARE, OTHER, SELFPAY ==
[2021-09-17 08:31] VITALS: BMI 38.4
[2022-01-27 18:08] LABS: Vitamin D,25 Hydroxy 61.8 ng/mL
[2022-01-27 18:36] LABS: ALB/GLOB Ratio 1.1 RATIO (0.9-2.4); AST(SGOT) 41 U/L (15-37); Alanine Aminotransfer ALT/SGPT 43 U/L (16-61); Alkaline Phosphatase 82 U/L (45-117); Anion Gap 12 (5-15); BUN 36 mg/dL (7-18); BUN/Creat Ratio 19.1 RATIO (10-20); Calcium,Total 8.3 mg/dL (8.5-10.1); Chloride 106 mmol/L (98-107); Creatinine, Serum 1.88 mg/dL (0.70-1.30); EST Glomerular Filtration Rate 37 mL/min (>60); Est Glom Filt Rate - Afr Amer 45 mL/min (>60); Globulin 2.8 g/dL (2.2-4.2); Glucose 138 mg/dL (74-106); Potassium 4.1 mmol/L (3.5-5.1); Protein, Total 5.8 g/dL (6.4-8.2); Sodium Level 141 mmol/L (136-145); Thyroid Stim Hormone (TSH) 1.38 uIU/mL (0.358-3.74)
[2022-01-28 07:55] LABS: Absolute Lymphocyte Count 0.39 X10^3/uL (0.83-4.51); Basophil# 0.03 X10^3/uL; Basophil% 0.4 % (0-1); Eosinophil# 0.03 X10^3/uL; Eosinophils% 0.4 % (0-5); Hematocrit 43.9 % (40-54); Hemoglobin 12.8 g/dL (13.0-16.5); Lymphocyte # 0.39 X10^3/ul (0.83-4.51); Lymphocyte % 5.5 % (19-41); Mean Corp Hgb Conc 29.2 g/dL (32-36); Mean Corpuscular Volume 99.5 fL (80-94); Mean Platelet Vol. 10.5 fl (6.2-12.0); Monocyte# 0.58 X10^3/uL; Monocyte% 8.2 % (0-10); NRBC Flagged by Analyzer 0 % (0-5); Neutrophil # 5.99 X10^3/uL (2.7-7.7); Neutrophil % 84.9 % (47-70); POSITIVE DIFFERENTIAL YES; POSITIVE MORPHOLOGY YES; Platelet Count 122 K/mm3 (150-450); RBC Distribution Width CV 20.6 % (11.6-14.6); RBC Distribution Width SD 76.6 fl (35.1-43.9); Red Blood Count 4.41 M/mm3 (4.6-6.2); White Blood Count 7.1 K/mm3 (4.4-11.0)
[2022-01-28 07:56] LABS: Differential Indicated SCAN CRITERIA MET
[2022-01-28 08:38] LABS: Anisocytosis 2+; Differential Comment SCANNED
[2022-01-28 08:39] LABS: Hypochromasia 1+; Ovalocyte 1+
== END | disposition home or self-care (01) ==
LOC: POLAB3 14:12
PROVIDERS: PCP Family Medicine Geriatric Medicine; Visit Provider Family Medicine Geriatric Medicine
DX: E55.9 Vitamin D deficiency, unspecified (principal); R53.83 Other fatigue
CPT/HCPCS: 36415; 80053; 82306; 84443; 85025

== ENCOUNTER → 2022-02-11 | Outpatient (CLI) | payer MEDICARE, OTHER, SELFPAY ==
[2021-09-17 08:31] VITALS: BMI 38.4
[2022-02-11 17:39] LABS: PSA,Total- Diagnostic < 0.01 ng/mL (0.0-4.0)
== END | disposition home or self-care (01) ==
LOC: POLAB3 16:29
PROVIDERS: PCP Family Medicine Geriatric Medicine; Visit Provider Family Medicine Geriatric Medicine
DX: C61 Malignant neoplasm of prostate (principal)
CPT/HCPCS: 36415; 84153

== ENCOUNTER → 2022-02-13 | Outpatient (CLI) | payer MEDICARE, OTHER, SELFPAY ==
[2021-09-17 08:31] VITALS: BMI 38.4
== END | disposition home or self-care (01) ==
PROVIDERS: PCP Family Medicine Geriatric Medicine; Referring Provider Family Medicine Geriatric Medicine; Visit Provider Family Medicine Geriatric Medicine
DX: R68.83 Chills (without fever) (principal)
CPT/HCPCS: 87635; 87804; 87807; C9803; U0003; U0005

== ENCOUNTER → 2022-04-24 | Outpatient (CLI) | payer MEDICARE, OTHER, SELFPAY ==
[2021-09-17 08:31] VITALS: BMI 38.4
== END | disposition home or self-care (01) ==
LOC: PSN 13:28
PROVIDERS: PCP Family Medicine Geriatric Medicine; Visit Provider Nurse Practitioner Family
DX: R00.2 Palpitations (principal); I49.9 Cardiac arrhythmia, unspecified; Z86.79 Personal history of other diseases of the circulatory system
CPT/HCPCS: 93225; 93226

== ENCOUNTER → 2022-04-28 | Outpatient (CLI) | payer MEDICARE, OTHER, SELFPAY ==
[2021-09-17 08:31] VITALS: BMI 38.4
[2022-04-28 17:26] LABS: Absolute Lymphocyte Count 0.86 X10^3/uL (0.83-4.51); Basophil# 0.05 X10^3/uL; Basophil% 0.9 % (0-1); Eosinophil# 0.11 X10^3/uL; Hematocrit 42.3 % (40-54); Hemoglobin 13.3 g/dL (13.0-16.5); Lymphocyte # 0.86 X10^3/ul (0.83-4.51); Lymphocyte % 15.4 % (19-41); Mean Corp Hgb Conc 31.4 g/dL (32-36); Mean Corpuscular Hgb 30.6 pg (27.0-32.0); Mean Corpuscular Volume 97.2 fL (80-94); Mean Platelet Vol. 10.4 fl (6.2-12.0); Monocyte# 0.56 X10^3/uL; NRBC Flagged by Analyzer 0 % (0-5); Neutrophil # 3.99 X10^3/uL (2.7-7.7); Neutrophil % 71.3 % (47-70); Platelet Count 153 K/mm3 (150-450); RBC Distribution Width CV 15.7 % (11.6-14.6); RBC Distribution Width SD 56.6 fl (35.1-43.9); Red Blood Count 4.35 M/mm3 (4.6-6.2); White Blood Count 5.6 K/mm3 (4.4-11.0)
[2022-04-28 17:41] LABS: Vitamin D,25 Hydroxy 66.5 ng/mL
[2022-04-28 17:50] LABS: ALB/GLOB Ratio 1.1 RATIO (0.9-2.4); AST(SGOT) 60 U/L (15-37); Alanine Aminotransfer ALT/SGPT 75 U/L (16-61); Albumin, Serum 3.4 g/dL (3.2-5.0); Alkaline Phosphatase 121 U/L (45-117); Anion Gap 9 (5-15); BUN 39 mg/dL (7-18); BUN/Creat Ratio 24.5 RATIO (10-20); Calcium,Total 8.7 mg/dL (8.5-10.1); Chloride 109 mmol/L (98-107); Creatinine, Serum 1.59 mg/dL (0.70-1.30); EST Glomerular Filtration Rate 45 mL/min (>60); Est Glom Filt Rate - Afr Amer 55 mL/min (>60); Ferritin 36 ng/mL (26-388); Glucose 98 mg/dL (74-106); Iron 117 ug/dL (65-175); Iron Binding Capacity,Total 344 ug/dL (250-450); Phosphorus 2.5 mg/dL (2.5-4.9); Potassium 4.3 mmol/L (3.5-5.1); Protein, Total 6.4 g/dL (6.4-8.2); Sodium Level 141 mmol/L (136-145); Thyroid Stim Hormone (TSH) 3.56 uIU/mL (0.358-3.74)
== END | disposition home or self-care (01) ==
LOC: POLAB3 14:40
PROVIDERS: PCP Family Medicine Geriatric Medicine; Visit Provider Internal Medicine Nephrology
DX: D50.9 Iron deficiency anemia, unspecified (principal); N18.31 Chronic kidney disease, stage 3a; R53.83 Other fatigue
CPT/HCPCS: 36415; 80053; 82306; 82728; 83540; 83550; 84100; 84443; 85025

== ENCOUNTER 2022-06-05 10:45 | Outpatient (RCR) | payer MEDICARE, OTHER, SELFPAY ==
[2021-09-17 08:31] VITALS: BMI 38.4
[2022-05-22 09:04] VITALS: BP 143/69; PULSE 84; RESP 16; TEMP 36.2; BMI 33.5
--- NOTE | 2022-05-22 15:40 | HP.PCM_ITS ---
History of Present Illness Date of Service: 05/22/22 Chief Complaint: Ulceration, left posterior calf History of Wound: Patient is a 76-year-old male who presents to the wound care center today for evaluation of a left anteromedial lower leg wound. He reports this wound has been present for about 1 month. He said when he first noticed it it appeared as a blood blister. He does not recall any recent injury/trauma to the area. He denies any significant focal swelling, drainage, foul odor, nausea, vomiting, fever, chills. He does tell me that last May he had CABG with venous harvesting from left lower extremity. He reports that this wound is in about the same area as a prior retained suture from this vein harvesting. He says that suture was ultimately removed and the associated small wound healed over with no issues until now. Last November, he had right lower extremity cellulitis and associated sepsis. Last December he had a small posterior left calf wound for which he followed at the wound care center. His past medical history is significant for CAD status post CABG, A-fib, hypothyroidism, CKD, sleep apnea, bilateral TKR. He does have bilateral lower extremity edema. He is not diabetic. He does not smoke. He is on Eliquis. He does not currently wear compression. [facility] Medical History Atherosclerosis of coronary artery of pe[place]anga heart without angina pectoris Atrial fibrillation Brantley's esophagus with esophagitis CAD (coronary artery disease) Chronic anticoagulation Chronic depression Chronic kidney disease, stage 3 Chronic kidney disease, stage III (moderate) Depression Essential hypertension GERD (gastroesophageal reflux disease) Hearing deficit History of left heart catheterization (LHC) (~05/20/21) History of septic shock (04/02/16) Hyperlipidemia Hypothyroidism Iron deficiency anemia Left leg swelling Lipodermatosclerosis Obesity (BMI 35.0-39.9 without comorbidity) Obstructive sleep apnea Right leg swelling Sleep apnea Ulcer of left calf Home Medications apixaban 5 mg tablet (Eliquis) 5 mg PO BID blood thinner 11/07/18 [History Last Taken 06/02/21] atorvastatin 40 mg tablet 40 mg PO QHS cholesterol 11/07/18 [History Last Taken Unknown] pantoprazole 40 mg tablet,delayed release 40 mg PO DAILY gerd 11/07/18 [History Last Taken 09/10/20] trospium 20 mg tablet 20 mg PO BID bladder 07/18/19 [History Last Taken 12/03/20] carboxymethylcellulose sodium 1 % eye liquid gel drops 1 drp RIGHT EYE DAILY dry eyes 06/02/21 [History Last Taken Unknown] prednisolone acetate 1 % eye drops,suspension 1 drp LEFT EYE TID eye drops 06/02/21 [History Last Taken Unknown] acetaminophen 500 mg tablet 1,000 mg PO Q6H PRN pain 07/22/21 [History Last Taken Unknown] aspirin 81 mg tablet,delayed release (Adult Low Dose Aspirin) 81 mg PO DAILY antiplatelet 07/22/21 [History Last Taken 11/29/21] cyanocobalamin (vitamin B-12) 1,000 mcg tablet 1,000 mcg PO DAILY vitamin 07/22/21 [History Last Taken Unknown] potassium klor-con 20 meq PO DAILY potassium replacement 08/26/21 [History Last Taken Unknown] levothyroxine 25 mcg tablet 25 mcg PO DAILY thyroid 09/15/21 [History Last Taken Unknown] fluoxetine 20 mg capsule 40 mg PO DAILY mental health 11/30/21 [History Last Taken Unknown] metoprolol tartrate 50 mg tablet 50 mg PO BID heart 11/30/21 [History Last Taken Unknown] furosemide 40 mg tablet (Lasix) 60 mg PO DAILY 12/16/21 [History Last Taken Unknown] plbmudnx-gwt-rylgg acid 300 mcg-lycopene 600 mcg-lutein 300 mcg tablet (Centrum Silver Men) 1 tab PO DAILY 12/16/21 [History Last Taken Unknown] nitroglycerin 0.4 mg sublingual tablet 0.4 mg sublingual Q5M PRN Chest Pain #25 tabs 04/02/22 [Rx Last Taken Unknown] ascorbic acid (vitamin C) 250 mg tablet (Vitamin C) 250 mg PO DAILY 05/22/22 [History Last Taken Unknown] magnesium oxide 420 mg tablet 420 mg PO DAILY 05/22/22 [History Last Taken Unknown] Allergy/AdvReac Type Severity Reaction Status Date / Time No Known Allergies Allergy Verified 05/22/22 09:13 Family History Father Cancer Lung Mother Heart disease Brother Heart disease CVA (cerebral vascular accident) Brother Heart disease Brother Heart disease Surgical History History of bilateral knee replacement History of coronary artery bypass graft x 3 (~05/27/21) History of total left knee replacement History of total right knee replacement Stented coronary artery (04/14/07) Social History household members: spouse housing: apartment pets and animals: No Smoking Status: Never smoker alcohol intake: never substance use type: does not use caffeine: Yes Type: carbonated beverages Number of servings: 1 ROS Constitutional Constitutional: Denies change in weight, chills, difficulty sleeping, fatigue, fever(s), frequent falls, lethargy, night sweats or weakness Eyes Eyes: Denies blindness, blurry vision, change in vision, eye pain or ptosis ENT HEENT: Denies abnormal hearing, change in voice, hearing loss, loss taste/smell or vertigo Cardiovascular Cardiovascular: Reports edema; Denies abdominal pain, chest pain, claudication, cold extremities, cyanosis, diaphoresis, dyspnea, dyspnea on exertion, fatigue, hypertension, irregular heart rhythm, orthopnea, palpitations, radiating jaw, neck or arm pain or syncope Respiratory/Chest Respiratory/Chest: Denies cough, dyspnea, hemoptysis, nail bed cyanosis, floridalma- oral cyanosis, portable oxygen @ home, productive cough or wheezing Gastrointestinal Gastrointestinal: Denies abdominal pain, change in bowel habits, change in stool character, coffee ground emesis, melena, rectal bleeding or weight changes Genitourinary Genitourinary: Denies abdominal discomfort, burning urination, difficulty urinating or flank pain Musculoskeletal Musculoskeletal: Denies abnormal gait, difficulty walking, joint swelling, muscle cramps, muscle weakness or numbness Integumentary Integumentary: Reports wounds; Denies change in pigmentation, changing lesions, erythema, lesions, rash, skin ulcer or unusual bruising Neurologic Neurologic: Denies abnormal gait, abnormal movements, abnormal speech, behavior changes, frequent falls, syncope, tingling or weakness Psychiatric Psychiatric: Denies behavioral changes, cognitive impairment or depression Endocrine Endocrinology: Denies change in body appearance, cold intolerance, excessive sweating, flushing, heat intolerance, palpitations, polydipsia, polyphagia or polyuria Hematologic/Lymphatic Hematologic/Lymphatic: Denies anemia, easy bleeding, easy bruising or lymphadenopathy Allergic/Immunologic Allergic/Immunologic: Denies seasonal rhinorrhea, throat swelling, tongue s welling, hives or asthma Vital Signs Vital Signs Vital Signs: 05/22/22 09:04 Temperature 97.2 F L Temperature Source Temporal Pulse Rate 84 Respiratory Rate 16 Blood Pressure 143/69 H Blood Pressure Mean 93 Blood Pressure Source Monitor Blood Pressure Position Sitting Blood Pressure Location Right Arm Oxygen Delivery Method Room Air Weight Weight: 240 lb Body Mass Index (BMI) 33.5 Physical Exam Const alert, oriented x3, no apparent distress and healthy appearing General Appearance: cooperative, comfortable and well kempt HEENT normocephalic, head/scalp atraumatic, hearing grossly normal bilaterally, external ears normal and external nose normal Eyes EOMs intact bilaterally General Eye: normal appearance of both eyes Neck General: normal visual inspection and trachea midline Resp normal respiratory effort, normal air movement, no retractions, no use of accessory muscles and clear to auscultation bilaterally Effort and Inspection: able to speak in complete sentences; Negative for labored, stridor or audible wheezes Cardio regular rate Rhythm: abnormal rhythm irregularly irregular Peripheral Pulses: brachial pulses present and radial pulses present Extremity Extremity Narrative: Bilateral lower extremity edema. Bilateral DP/PT pulses diminished to palpation but biphasic signals on doppler. Bilateral lower extremities with appropriate warmth and color, normal capillary refill. Skin Wounds: wounds noted Wound Narrative: Small wound noted to the antermedial aspect of the left lower leg. Tracks about 1 cm posteriorly. No significant drainage noted. No bleeding. Granulation tissue present, no necrotic tissue noted. No surrounding erythema or swelliing. Neuro oriented x3, CN's II-XII intact bilaterally, moves all extremities and no focal motor deficits Speech: speech normal Psych mental status grossly normal Appearance: grossly normal Attitude: calm and engaged Activity / Motor Behavior: appropriate eye contact Speech: normal speech Mood & Affect: euthymic mood Attention / Concentration: attention grossly intact Memory / Cognition: memory grossly intact Insight: insight good Judgement: judgement good Debridement Note Debridement Note Wound debrided: Left lower leg Laterality: Left Type of Debridement: Excisional debridement Depth: Down to and including healthy tissue and in the subcutaneous layer Percentage of wound debrided: 100 Instrument Used: 3mm curette Tissue Removed: slough, devitalized tissue Post-Debridement Measurements and Additional Note: Post-Debridement Measurements/Treatment WC - Nurse 1 - General Ulcer Assessment Start: 05/22/22 09:01 Freq: Status: Active Protocol: WC.LOWEXT Activity Type Activity Date Activity User E-sign Co-sign Detail Recorded Client Recorded Date Recorded By Document 05/22/22 09:04 [facility] [id number] 05/22/22 09:13 [facility] 05/22/22 09:04 WC - Today's Visit Information Type of service Initial Visit Arrival Mode Ambulatory Transfer Assistance None Patient Identification Verified (Name & Yes ) Patient Requires Transmission-Based No Precautions Height and Weight Height 5 ft 11 in Weight 240 lb Weight in Pounds 240.0 lbs Weight Measurement Method Stated by Patient Body Mass Index (BMI) 33.5 BMI Classification Obese BSA - Ayaan 2.28 Vital Signs Temperature (97.8 F-99.1 F) 97.2 F L Temperature Source Temporal Pulse Rate (60-100) 84 Pulse Location Monitor Respiratory Rate (12-18) 16 Respiratory rate source Observation Oxygen Delivery Method Room Air Blood Pressure (90/60-120/80) 143/69 H Blood Pressure Mean 93 Source Monitor Position Sitting Blood Pressure Location Right Arm History Since Last Visit- (Skip if this is Patient's initial visit) Left Footwear Regular Shoe Right Footwear Regular Shoe Pain Scale: 0-10 Numeric Is Patient Pain Free? Yes Lower Extremity Assessment/ Foot Assessment/ Toe Nail Assessment Left -Dorsalis Pedis Doppler Multiphasic -Extremity Color Hyperpigmented -Hair Growth on Legs No -Hair Growth on Toes No -Temperature of Extremity Cool -Thick Yes -Discolored Yes -Deformed No -Improper Length & Hygeine No Right -Posterior Tibial Doppler Multiphasic -Dorsalis Pedis Doppler Monophasic -Extremity Color Hyperpigmented -Hair Growth on Legs No -Hair Growth on Toes No -Temperature of Extremity Cool -Other Deformity No -Prior Foot Ulcer No -Charcot Joint No -Prior Amputation No -Thick Yes -Discolored Yes -Deformed No -Improper Length & Hygeine No Communication Assessment Preferred language Ghanaian Etl Programmer Required No Able to Read Yes Able to Write Yes Communication Tools None Right Hearing Abillity Hard of Hearing Left Hearing Abillity Hard of Hearing Visual Assistive Devices Glasses Teaching Assessment Preferences Verbal,Written, Audio/Visual, Demonstration Barriers to Learning None Readiness To Learn Excellent Willingness to Engage in Self Management High Activies Readiness to Engage in Self Management High Activities Anxiety Level Calm Cooperation Cooperative Perception Coherent Interest in Health Problem Asks Questions Education Importance Acknowledges Need Does Patient Smoke tobacco or other No substances Smoking Status Never smoker Is Patient Diabetic No Functional Assessment Recent Decline in Ability to Perform Denies Any Declines Culture/Mormonism/Header Boss Cultural/Mormonism Needs that may affect No Treatment Plan Teaching: Wound Center *Welcome to the Wound Center -Person Taught Patient -Teaching Method Discussion -Response to teaching Verbalize understanding Welcome to the Wound Care Center Ghanaian - Nurse 1 - General Ulcer Measurement Start: 05/22/22 09:01 Freq: Status: Active Protocol: Activity Type Activity Date Activity User E-sign Co-sign Detail Recorded Client Recorded Date Recorded By Document 05/22/22 09:04 [facility] [id number] 05/22/22 09:13 [facility] 05/22/22 09:04 Wound Center Nurse 1 #2- L MEDIAL VASQUES -Combined with other wound No -Current Size (cm) - Length 0.1 -Current Size (cm) - Width 0.1 -Current Size (cm) - Depth 0.1 -Total Square Cm 0.01 -Date of Last Picture (Recall this 05/22/22 field) -Photo Taken Yes -Epithelialization None Present -Tunneling No -Undermining/Tunneling No -Circular Undermining No -Exudate Amt None Present -Granulation Amt None Present (0 %) -Necrosis Amt Large (67-100%) -Necrotic Tissue Type Eschar -Texture (Floridalma-wound Skin Appearance) Assessed, Scarring -Moisture (Floridalma-wound Skin Appearance) Assessed,Dry/ Scaly -Color (Floridalma-wound Skin Appearance) Assessed -Temperature (Floridalma-wound Skin No Abnormality Appearance) (Pt Warm) -Tenderness on Palpation (Floridalma-wound No Skin Appearance) -Ulcer Cleansing Rinsed/ Irrigated with Saline -Foul Odor after Cleansing No -Anesthetic Used 5% Lidocaine Gel Lower Limb Edema Present Yes Right Calf (cm) 42 Right Ankle (cm) 28.4 Left Calf (cm) 43.3 Left Ankle (cm) 27.6 - Nurse 2 - General Ulcer CM Notes Start: 05/22/22 09:01 Freq: Status: Active Protocol: Activity Type Activity Date Activity User E-sign Co-sign Detail Recorded Client Recorded Date Recorded By Document 05/22/22 10:21 PL [id number] 05/22/22 10:23 PL 05/22/22 10:21 Wound Center Nurse 2 #2- L MEDIAL VASQUES -Time 09:20 -Correct Patient Yes -Correct Side, Site, Position Yes -Correct Procedure Yes -Procedure Performed Yes -Type of Procedure Debridement -Clinical Debridement Subcutaneous -Tissue Removed Subcutaneous -Post Debridement (cm) - Length 0.3 -Post Debridement (cm) - Width 0.4 -Post Debridement (cm) - Depth 0.3 -Total Square (Post) (cm) 0.12 -Area of Debridement (cm) - Length 0.3 -Area of Debridement (cm) - Width 0.3 -Total Square (Area) (cm) 0.09 -Tunneling Yes -Tunneling Position (O'clock) 11 -Tunneling Distance (cm) 1.3 -Circular Undermining No -Wound/Ulcer Outcome Not Healed -Ulcer Cleansing Rinsed/ Irrigated with Saline -Foul Odor after Cleansing No -Bioengineered Tissue No -Bleeding Controlled with Pressure -Treatment Response Procedure Tolerated Well -Debridement - Subq, 1st 20sq cm Yes Pain Scale: 0-10 Numeric Is Patient Pain Free? Yes - Nurse 3 - General Ulcer D/C NN Start: 05/22/22 09:01 Freq: Status: Active Protocol: Activity Type Activity Date Activity User E-sign Co-sign Detail Recorded Client Recorded Date Recorded By Document 05/22/22 09:42 [facility] [id number] 05/22/22 09:42 [facility] 05/22/22 09:42 Wound Care Center Nurse 3 #2- L MEDIAL VASQUES -Ulcer Cleansing Rinsed/ Irrigated with Saline -Foul Odor after Cleansing No -Primary Dressing Applied Mepilex Border -Other Dressing PROMOGRAN -Other Covering DRSG PER ANGELICA RN -Mepilex Border 1 BLE -Tubular Bandage Single Layer -Size of Tubigrip Used Size D -Size D ($) 2 Treatment Response Procedure Tolerated Well Pain Scale: 0-10 Numeric Is Patient Pain Free? Yes - Visit Discharge Discharge Condition Stable Ambulatory Status Ambulatory Transportation Private Auto Charges/Coding Multi Select Codes Visit Charges Office Visit/Consults: 68163 OV L3 Est Integumentary Integumentary CPT Codes: 99379 Hien subq tissue 20 sq cm/< Assessment/Plan Assessment/Plan (1) Non-pressure chronic ulcer of left lower leg with fat layer exposed: CODE(S): L97.922 - Non-pressure chronic ulcer of unspecified part of left lower leg with fat layer exposed PLAN: There is some posterior tracking at the superior aspect of the wound, quite narrow so do not think we could really pack this well but no significant drainage able to be expressed. Will apply moistened promogran and will try to push it down into this track and it should dissolve in as well. Cover with mepilex. Change dressing daily or more often as needed to keep clean and dry. Will do tubigrips for compression. No signs/symptoms of infection today, no cultures obtained. Encouraged patient to increase protein and decrease carbs/sugar in diet. Encouraged him to elevate legs when resting/sleeping. Patient will return to clinic in 2 weeks or sooner as needed.
[2022-06-05 10:50] VITALS: BP 130/79; PULSE 90; RESP 18; TEMP 36.4; BMI 33.5
--- NOTE | 2022-06-05 14:06 | PN.PCM_ITS ---
History of Present Illness Date of Service: 06/05/22 Chief Complaint: Ulceration, left posterior calf History of Wound: Patient is a 76-year-old male who presents to the wound care center today for evaluation of a left anteromedial lower leg wound. He reports this wound has been present for about 1 month. He said when he first noticed it it appeared as a blood blister. He does not recall any recent injury/trauma to the area. He denies any significant focal swelling, drainage, foul odor, nausea, vomiting, fever, chills. He does tell me that last May he had CABG with venous harvesting from left lower extremity. He reports that this wound is in about the same area as a prior retained suture from this vein harvesting. He says that suture was ultimately removed and the associated small wound healed over with no issues until now. Last November, he had right lower extremity cellulitis and associated sepsis. Last December he had a small posterior left calf wound for which he followed at the wound care center. His past medical history is significant for CAD status post CABG, A-fib, hypothyroidism, CKD, sleep apnea, bilateral TKR. He does have bilateral lower extremity edema. He is not diabetic. He does not smoke. He is on Eliquis. He does not currently wear compression. Subjective Subjective Patient has been doing well with dressing changes at home. He has not been wearing compression as instructed. He denies new/worsening pain, F/C, N/V. Objective Data Objective Data Vital Signs: Vital Signs Temp Pulse Resp BP O2 Del Method 97.6 F L 90 18 130/79 H Room Air 06/05/22 10:50 06/05/22 10:50 06/05/22 10:50 06/05/22 10:50 05/22/22 09:04 Oxygen Delivery Method Room Air Weight: 240 lb Body Mass Index (BMI) 33.5 Charges/Coding Procedures Integumentary 111xxx-113xx: [id number] Hien subq tissue 20 sq cm/< Physical Exam Const alert, oriented x3, no apparent distress and healthy appearing General Appearance: cooperative, comfortable and well kempt HEENT normocephalic, head/scalp atraumatic, hearing grossly normal bilaterally, external ears normal and external nose normal Eyes EOMs intact bilaterally General Eye: normal appearance of both eyes Neck General: normal visual inspection and trachea midline Resp normal respiratory effort, normal air movement, no retractions and no use of accessory muscles Effort and Inspection: able to speak in complete sentences; Negative for labored, stridor or audible wheezes Extremity Extremity Narrative: Bilateral lower extremity edema. Bilateral DP/PT pulses diminished to palpation but biphasic signals on doppler. Bilateral lower extremities with appropriate warmth and color, normal capillary refill. Skin Wounds: wounds noted Wound Narrative: Small wound noted to the antermedial aspect of the left lower leg. Tracks about 1 cm posteriorly. No significant drainage noted. No bleeding. Granulation tissue present, no necrotic tissue noted. No surrounding erythema or swelliing. Neuro oriented x3, CN's II-XII intact bilaterally, moves all extremities and no focal motor deficits Speech: speech normal Psych mental status grossly normal Appearance: grossly normal Attitude: calm and engaged Activity / Motor Behavior: appropriate eye contact Speech: normal speech Mood & Affect: euthymic mood Attention / Concentration: attention grossly intact Memory / Cognition: memory grossly intact Insight: insight good Judgement: judgement good Debridement Note Debridement Note Wound debrided: Left lower leg Laterality: Left Type of Debridement: Excisional debridement Depth: Down to and including healthy tissue and in the subcutaneous layer Percentage of wound debrided: 100 Instrument Used: 3mm curette Tissue Removed: slough, devitalized tissue Post-Debridement Measurements and Additional Note: Post-Debridement Measurements/Treatment - Nurse 1 - General Ulcer Assessment Start: 05/22/22 09:01 Freq: Status: Active Protocol: .LOWEXT Activity Type Activity Date Activity User E-sign Co-sign Detail Recorded Client Recorded Date Recorded By Document 05/22/22 09:04 [facility] [id number] 05/22/22 09:13 [facility] Document 06/05/22 10:50 PL [id number] 06/05/22 11:00 PL 05/22/22 06/05/22 09:04 10:50 - Today's Visit Information Type of service Initial Visit Follow-up Visit (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/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 [employer]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 ) Arrival Mode Ambulatory Ambulatory Transfer Assistance None None Patient Identification Verified (Name & Yes Yes ) Patient Requires Transmission-Based No No Precautions Height and Weight Height 5 ft 11 in Weight 240 lb Weight in Pounds 240.0 lbs Weight Measurement Method Stated by Patient Body Mass Index (BMI) 33.5 33.5 BMI Classification Obese Obese BSA - Ayaan 2.28 Vital Signs Temperature (97.8 F-99.1 F) 97.2 F L 97.6 F L Temperature Source Temporal Temporal Pulse Rate (60-100) 84 90 Pulse Location Monitor Respiratory Rate (12-18) 16 18 Respiratory rate source Observation Oxygen Delivery Method Room Air Blood Pressure (90/60-120/80) 143/69 H 130/79 H Blood Pressure Mean (mm Hg) 93 96 Source Monitor Position Sitting Blood Pressure Location Right Arm History Since Last Visit- (Skip if this is Patient's initial visit) Have you changed medications since your No last visit? Any new allergies or adverse reactions No Signs or symptoms of abuse and/or No neglect since last visit Have you been in the hospital since your No last visit? Has dressing in place as prescribed Yes Has compression in place as prescribed Yes Has offloadiing in place as prescribed N/A Experienced any changes in pain level or No management Left Footwear Regular Shoe Right Footwear Regular Shoe Pain Scale: 0-10 Numeric Is Patient Pain Free? Yes Yes Lower Extremity Assessment/ Foot Assessment/ Toe Nail Assessment Left -Dorsalis Pedis Doppler Multiphasic -Extremity Color Hyperpigmented -Hair Growth on Legs No -Hair Growth on Toes No -Temperature of Extremity Cool -Thick Yes -Discolored Yes -Deformed No -Improper Length & Hygeine No Right -Posterior Tibial Doppler Multiphasic -Dorsalis Pedis Doppler Monophasic -Extremity Color Hyperpigmented -Hair Growth on Legs No -Hair Growth on Toes No -Temperature of Extremity Cool -Other Deformity No -Prior Foot Ulcer No -Charcot Joint No -Prior Amputation No -Thick Yes -Discolored Yes -Deformed No -Improper Length & Hygeine No Communication Assessment Preferred language Thai Wheel Alignment Technician Required No Able to Read Yes Able to Write Yes Communication Tools None Right Hearing Abillity Hard of Hearing Left Hearing Abillity Hard of Hearing Visual Assistive Devices Glasses Teaching Assessment Preferences Verbal,Written, Audio/Visual, Demonstration Barriers to Learning None Readiness To Learn Excellent Willingness to Engage in Self Management High Activies Readiness to Engage in Self Management High Activities Anxiety Level Calm Cooperation Cooperative Perception Coherent Interest in Health Problem Asks Questions Education Importance Acknowledges Need Does Patient Smoke tobacco or other No substances Smoking Status Never smoker Is Patient Diabetic No Functional Assessment Recent Decline in Ability to Perform Denies Any Declines Culture/Episcopal/Newborn Hearing Screener Cultural/Episcopal Needs that may affect No Treatment Plan Teaching: Wound Center *Welcome to the Wound Center -Person Taught Patient -Teaching Method Discussion -Response to teaching Verbalize understanding Welcome to the Wound Care Center Thai - Nurse 1 - General Ulcer Measurement Start: 05/22/22 09:01 Freq: Status: Active Protocol: Activity Type Activity Date Activity User E-sign Co-sign Detail Recorded Client Recorded Date Recorded By Document 05/22/22 09:04 [facility] [id number] 05/22/22 09:13 [facility] Document 06/05/22 10:50 PL [id number] 06/05/22 11:00 PL 05/22/22 06/05/22 09:04 10:50 Wound Center Nurse 1 #2- L MEDIAL VASQUES -Combined with other wound No No -Current Size (cm) - Length 0.1 0.2 -Current Size (cm) - Width 0.1 0.3 -Current Size (cm) - Depth 0.1 0.1 -Total Square Cm 0.01 0.06 -Date of Last Picture (Recall this 05/22/22 field) -Photo Taken Yes No -Epithelialization None Present Large 67-100% -Tunneling No No -Undermining/Tunneling No No -Circular Undermining No No -Classification - Thickness Partial Thickness -Exudate Amt None Present Small -Exudate Type Serosanguineous -Granulation Amt None Present (0 Large (67-100%) %) -Granulation Quality Baldwin -Slough/Fibrin Yes -Necrosis Amt Large (67-100%) Small (1-33%) -Necrotic Tissue Type Eschar Adherent Slough -Texture (Floridalma-wound Skin Appearance) Assessed, Scarring -Moisture (Floridalma-wound Skin Appearance) Assessed,Dry/ Scaly -Color (Floridalma-wound Skin Appearance) Assessed -Temperature (Floridalma-wound Skin No Abnormality Appearance) (Pt Warm) -Tenderness on Palpation (Floridalma-wound No Skin Appearance) -Ulcer Cleansing Rinsed/ Rinsed/ Irrigated with Irrigated with Saline Saline -Foul Odor after Cleansing No No -Anesthetic Used 5% Lidocaine 5% Lidocaine Gel Gel Lower Limb Edema Present Yes Right Calf (cm) 42 Right Ankle (cm) 28.4 Left Calf (cm) 43.3 Left Ankle (cm) 27.6 WC - Nurse 2 - General Ulcer CM Notes Start: 05/22/22 09:01 Freq: Status: Active Protocol: Activity Type Activity Date Activity User E-sign Co-sign Detail Recorded Client Recorded Date Recorded By Document 05/22/22 10:21 PL [id number] 05/22/22 10:23 PL Document 06/05/22 11:24 [id number] 06/05/22 11:32 05/22/22 06/05/22 10:21 11:24 Wound Center Nurse 2 #2- L MEDIAL VASQUES -Time 09:20 11:26 -Correct Patient Yes Yes -Correct Side, Site, Position Yes Yes -Correct Procedure Yes Yes -Procedure Performed Yes Yes -Type of Procedure Debridement Debridement -Clinical Debridement Subcutaneous Subcutaneous -Tissue Removed Subcutaneous Subcutaneous -Post Debridement (cm) - Length 0.3 0.4 -Post Debridement (cm) - Width 0.4 0.3 -Post Debridement (cm) - Depth 0.3 0.8 -Total Square (Post) (cm) 0.12 0.12 -Area of Debridement (cm) - Length 0.3 0.4 -Area of Debridement (cm) - Width 0.3 0.3 -Total Square (Area) (cm) 0.09 0.12 -Tunneling Yes No -Tunneling Position (O'clock) 11 -Tunneling Distance (cm) 1.3 -Undermining/Tunneling No -Circular Undermining No No -Wound/Ulcer Outcome Not Healed Not Healed -Ulcer Cleansing Rinsed/ Rinsed/ Irrigated with Irrigated with Saline Saline -Foul Odor after Cleansing No No -Bioengineered Tissue No No -Bleeding Controlled with Pressure Pressure -Treatment Response Procedure Procedure Tolerated Well Tolerated Well -Offloading No -Debridement - Subq, 1st 20sq cm Yes Yes Pain Scale: 0-10 Numeric Is Patient Pain Free? Yes Yes WC - Nurse 3 - General Ulcer D/C NN Start: 05/22/22 09:01 Freq: Status: Active Protocol: Activity Type Activity Date Activity User E-sign Co-sign Detail Recorded Client Recorded Date Recorded By Document 05/22/22 09:42 [facility] [id number] 05/22/22 09:42 [facility] 05/22/22 09:42 Wound Care Center Nurse 3 #2- L MEDIAL VASQUES -Ulcer Cleansing Rinsed/ Irrigated with Saline -Foul Odor after Cleansing No -Primary Dressing Applied Mepilex Border -Other Dressing PROMOGRAN -Other Covering DRSG PER ANGELICA RN -Mepilex Border 1 BLE -Tubular Bandage Single Layer -Size of Tubigrip Used Size D -Size D ($) 2 Treatment Response Procedure Tolerated Well Pain Scale: 0-10 Numeric Is Patient Pain Free? Yes WC - Visit Discharge Discharge Condition Stable Ambulatory Status Ambulatory Transportation Private Auto Assessment/Plan Assessment/Plan (1) Non-pressure chronic ulcer of left lower leg with fat layer exposed: CODE(S): L97.922 - Non-pressure chronic ulcer of unspecified part of left lower leg with fat layer exposed PLAN: The wound opening is quite small. The tracking has not improved in depth this week, I suspect due to noncompliance with compression. Emphasized the importance of compression given his lower extremity edema. Tunneling still too narrow to pack and no drainage able to be expressed. Will cover wound with adaptic then dry sterile dressing. Tubigrips for compression, patient instructed to wear daily. Elevate feet throughout the day and when sleeping. No signs/symptoms of infection today, no cultures obtained. Encouraged patient to increase protein and decrease carbs/sugar in diet. Patient will return to clinic in 2 weeks or sooner as needed.
== END 2022-06-07 23:59 | disposition home or self-care (01) ==
LOC: WC 10:45
PROVIDERS: PCP Family Medicine Geriatric Medicine; Referring Provider Family Medicine Geriatric Medicine; Visit Provider Physician Assistant
DX: L97.222 Non-pressure chronic ulcer of left calf with fat layer exposed (principal); N18.30 Chronic kidney disease, stage 3 unspecified; R60.0 Localized edema; I25.10 Atherosclerotic heart disease of native coronary artery without angina pectoris; K21.9 Gastro-esophageal reflux disease without esophagitis; I12.9 Hypertensive chronic kidney disease with stage 1 through stage 4 chronic kidney disease, or unspecified chronic kidney disease; Z79.01 Long term (current) use of anticoagulants; E78.5 Hyperlipidemia, unspecified; Z95.1 Presence of aortocoronary bypass graft; Z79.899 Other long term (current) drug therapy; Z79.82 Long term (current) use of aspirin; Z79.890 Hormone replacement therapy; E03.9 Hypothyroidism, unspecified; E66.9 Obesity, unspecified; Z68.33 Body mass index [BMI] 33.0-33.9, adult
CPT/HCPCS: 11042; 99213; G0463

== ENCOUNTER 2022-06-19 13:15 | Outpatient (RCR) | payer MEDICARE, OTHER, SELFPAY ==
[2021-09-17 08:31] VITALS: BMI 38.4
[2022-06-08 00:09] VITALS: BP 130/79; PULSE 90; RESP 18; TEMP 36.4; BMI 33.5
[2022-06-19 13:20] VITALS: BP 125/74; PULSE 107; RESP 16; TEMP 35.8; BMI 33.5
--- NOTE | 2022-06-19 14:00 | PCM.WC.PN ---
History of Present Illness Date of Service: 06/19/22 Chief Complaint: Ulceration, left posterior calf History of Wound: Patient is a 76-year-old male who presents to the wound care center today for evaluation of a left anteromedial lower leg wound. He reports this wound has been present for about 1 month. He said when he first noticed it it appeared as a blood blister. He does not recall any recent injury/trauma to the area. He denies any significant focal swelling, drainage, foul odor, nausea, vomiting, fever, chills. He does tell me that last May he had CABG with venous harvesting from left lower extremity. He reports that this wound is in about the same area as a prior retained suture from this vein harvesting. He says that suture was ultimately removed and the associated small wound healed over with no issues until now. Last November, he had right lower extremity cellulitis and associated sepsis. Last December he had a small posterior left calf wound for which he followed at the wound care center. His past medical history is significant for CAD status post CABG, A-fib, hypothyroidism, CKD, sleep apnea, bilateral TKR. He does have bilateral lower extremity edema. He is not diabetic. He does not smoke. He is on Eliquis. He does not currently wear compression. Subjective Subjective Patient has been doing well, he has been compliant with compression. He denies any N/V, F/C, new or increased pain, increase drainage, redness, swelling of wound. Objective Data Objective Data Vital Signs: Vital Signs Temp Pulse Resp BP 96.5 F L 107 H 16 125/74 H 06/19/22 13:20 06/19/22 13:20 06/19/22 13:20 06/19/22 13:20 Weight: 240 lb Body Mass Index (BMI) 33.5 Charges/Coding Visit Charges Office Visits / Consults: 18006 OV L3 Est Physical Exam Const alert, oriented x3, no apparent distress and healthy appearing General Appearance: cooperative, comfortable and well kempt HEENT normocephalic, head/scalp atraumatic, hearing grossly normal bilaterally, external ears normal and external nose normal Eyes EOMs intact bilaterally General Eye: normal appearance of both eyes Neck General: normal visual inspection and trachea midline Resp normal respiratory effort, normal air movement, no retractions and no use of accessory muscles Effort and Inspection: able to speak in complete sentences; Negative for labored, stridor or audible wheezes Extremity Extremity Narrative: Bilateral lower extremity edema. Bilateral DP/PT pulses diminished to palpation but biphasic signals on doppler. Bilateral lower extremities with appropriate warmth and color, normal capillary refill. Skin Wounds: wounds noted Wound Narrative: Wound is fully epithelialized. Neuro oriented x3, CN's II-XII intact bilaterally, moves all extremities and no focal motor deficits Speech: speech normal Psych mental status grossly normal Appearance: grossly normal Attitude: calm and engaged Activity / Motor Behavior: appropriate eye contact Speech: normal speech Mood & Affect: euthymic mood Attention / Concentration: attention grossly intact Memory / Cognition: memory grossly intact Insight: insight good Judgement: judgement good Debridement Note Debridement Note No debridement was completed: No debridement was completed today Assessment/Plan Assessment/Plan (1) Non-pressure chronic ulcer of left lower leg with fat layer exposed: CODE(S): L97.922 - Non-pressure chronic ulcer of unspecified part of left lower leg with fat layer exposed PLAN: Wound is healed today. The newly healed skin is still delicate, I advise patient to continue to pad and protect the area for another week or so. I advise he continue with measured compression to manage lower extremity swelling and prevent wound recurrence. He is discharged from [facility] today, he will return as needed.
== END 2022-06-19 14:34 | disposition home or self-care (01) ==
LOC: WC 13:15
PROVIDERS: PCP Family Medicine Geriatric Medicine; Referring Provider Family Medicine Geriatric Medicine; Visit Provider Physician Assistant
DX: L97.922 Non-pressure chronic ulcer of unspecified part of left lower leg with fat layer exposed (principal); I48.91 Unspecified atrial fibrillation; N18.9 Chronic kidney disease, unspecified; R60.0 Localized edema; I25.10 Atherosclerotic heart disease of native coronary artery without angina pectoris; Z95.1 Presence of aortocoronary bypass graft; E03.9 Hypothyroidism, unspecified; Z79.01 Long term (current) use of anticoagulants
CPT/HCPCS: 99213; G0463

== ENCOUNTER → 2022-08-04 | Outpatient (CLI) | payer MEDICARE, OTHER, SELFPAY ==
[2021-09-17 08:31] VITALS: BMI 38.4
[2022-08-04 16:50] LABS: Absolute Lymphocyte Count 1.25 X10^3/uL (0.83-4.51); Absolute Neutrophil Count 5.2 X10^3/uL (2.0-7.7); Basophil# 0.05 X10^3/uL; Basophil% 0.7 % (0-1); Eosinophil# 0.17 X10^3/uL; Eosinophils% 2.3 % (0-5); Lymphocyte # 1.25 X10^3/ul (0.83-4.51); Mean Corp Hgb Conc 32.6 g/dL (32-36); Mean Corpuscular Hgb 31.3 pg (27.0-32.0); Mean Corpuscular Volume 95.8 fL (80-94); Monocyte# 0.67 X10^3/uL; Monocyte% 9.1 % (0-10); NRBC Flagged by Analyzer 0 % (0-5); Neutrophil # 5.17 X10^3/uL (2.7-7.7); Neutrophil % 70.4 % (47-70); Platelet Count 165 K/mm3 (150-450); RBC Distribution Width CV 14.7 % (11.6-14.6); RBC Distribution Width SD 52.2 fl (35.1-43.9); White Blood Count 7.4 K/mm3 (4.4-11.0)
[2022-08-04 17:26] LABS: AST(SGOT) 22 U/L (15-37); Alanine Aminotransfer ALT/SGPT 54 U/L (16-61); Albumin, Serum 3.4 g/dL (3.2-5.0); Alkaline Phosphatase 122 U/L (45-117); Anion Gap 4 (5-15); BUN 35 mg/dL (7-18); Calcium,Total 8.9 mg/dL (8.5-10.1); Chloride 109 mmol/L (98-107); Creatinine, Serum 1.67 mg/dL (0.70-1.30); EST Glomerular Filtration Rate 43 mL/min (>60); Est Glom Filt Rate - Afr Amer 51 mL/min (>60); Globulin 3.3 g/dL (2.2-4.2); Glucose 93 mg/dL (74-106); Potassium 3.9 mmol/L (3.5-5.1); Protein, Total 6.7 g/dL (6.4-8.2); Sodium Level 142 mmol/L (136-145); Thyroid Stim Hormone (TSH) 2.81 uIU/mL (0.358-3.74)
== END | disposition home or self-care (01) ==
LOC: LAB 15:33
PROVIDERS: PCP Family Medicine Geriatric Medicine; Referring Provider Family Medicine Geriatric Medicine; Visit Provider Family Medicine Geriatric Medicine
DX: R53.83 Other fatigue (principal); E55.9 Vitamin D deficiency, unspecified
CPT/HCPCS: 36415; 80053; 82306; 84443; 85025

== ENCOUNTER 2022-08-07 13:30 | Outpatient (RCR) | payer MEDICARE, OTHER, SELFPAY ==
[2021-09-17 08:31] VITALS: BMI 38.4
[2022-07-17 13:51] VITALS: BP 146/105; PULSE 98; RESP 18; TEMP 36.2
--- NOTE | 2022-07-17 16:19 | HP.PCM_ITS ---
History of Present Illness Date of Service: 07/17/22 Chief Complaint: Ulceration, left posterior calf History of Wound: Patient is a 76-year-old male who presents to the wound care center today for evaluation of a recurrent left anteromedial lower leg wound. He is well known to me as I treated him here for this ulcer prior and he was in fact just discharged 3 weeks ago. He reports that over the last couple of days he has noticed a blood blister form and then when he was showering it opened up and began to drain. He does not recall any injury to the area. Lst May he had CABG with venous harvesting from left lower extremity. He reports that this wound is in about the same area as a prior retained suture from this vein harvesting. He says that suture was ultimately removed and the associated small wound healed over with no issues until recently. Last November, he had right lower extremity cellulitis and associated sepsis. Last December he had a small posterior left calf wound for which he followed at the wound care center. His past medical history is significant for CAD status post CABG, A-fib, hypothyroidism, CKD, sleep apnea, bilateral TKR. He does have bilateral lower extremity edema. He is not diabetic. He does not smoke. He is on Eliquis. He has been wearing zippered [facility]. These are few years old and I did previously instructed to obtain new measured compression stockings and he tells me he has an appointment coming up at [facility]. [facility] Medical History Atherosclerosis of coronary artery of nikolai heart without angina pectoris Atrial fibrillation Brantley's esophagus with esophagitis CAD (coronary artery disease) Chronic anticoagulation Chronic depression Chronic kidney disease, stage 3 Chronic kidney disease, stage III (moderate) Depression Essential hypertension GERD (gastroesophageal reflux disease) Hearing deficit History of left heart catheterization (LHC) (~05/20/21) History of septic shock (04/02/16) Hyperlipidemia Hypothyroidism Iron deficiency anemia Left leg swelling Lipodermatosclerosis Obesity (BMI 35.0-39.9 without comorbidity) Obstructive sleep apnea Right leg swelling Sleep apnea Ulcer of left calf Home Medications apixaban 5 mg tablet (Eliquis) 5 mg PO BID blood thinner 11/07/18 [History Last Taken 06/02/21] atorvastatin 40 mg tablet 40 mg PO QHS cholesterol 11/07/18 [History Last Taken Unknown] pantoprazole 40 mg tablet,delayed release 40 mg PO DAILY gerd 11/07/18 [History Last Taken 09/10/20] trospium 20 mg tablet 20 mg PO BID bladder 07/18/19 [History Last Taken 12/03/20] carboxymethylcellulose sodium 1 % eye liquid gel drops 1 drp RIGHT EYE DAILY dry eyes 06/02/21 [History Last Taken Unknown] prednisolone acetate 1 % eye drops,suspension 1 drp LEFT EYE TID eye drops 06/02/21 [History Last Taken Unknown] acetaminophen 500 mg tablet 1,000 mg PO Q6H PRN pain 07/22/21 [History Last Taken Unknown] aspirin 81 mg tablet,delayed release (Adult Low Dose Aspirin) 81 mg PO DAILY antiplatelet 07/22/21 [History Last Taken 11/29/21] cyanocobalamin (vitamin B-12) 1,000 mcg tablet 1,000 mcg PO DAILY vitamin 07/22/21 [History Last Taken Unknown] potassium klor-con 20 meq PO DAILY potassium replacement 08/26/21 [History Last Taken Unknown] levothyroxine 25 mcg tablet 25 mcg PO DAILY thyroid 09/15/21 [History Last Taken Unknown] fluoxetine 20 mg capsule 40 mg PO DAILY mental health 11/30/21 [History Last Taken Unknown] metoprolol tartrate 50 mg tablet 50 mg PO BID heart 11/30/21 [History Last Taken Unknown] furosemide 40 mg tablet (Lasix) 60 mg PO DAILY 12/16/21 [History Last Taken Unknown] ednshcgo-sha-qzufz acid 300 mcg-lycopene 600 mcg-lutein 300 mcg tablet (Centrum Silver Men) 1 tab PO DAILY 12/16/21 [History Last Taken Unknown] nitroglycerin 0.4 mg sublingual tablet 0.4 mg sublingual Q5M PRN Chest Pain #25 tabs 04/02/22 [Rx Last Taken Unknown] ascorbic acid (vitamin C) 250 mg tablet (Vitamin C) 250 mg PO DAILY 05/22/22 [History Last Taken Unknown] magnesium oxide 420 mg tablet 420 mg PO DAILY 05/22/22 [History Last Taken Unknown] Allergy/AdvReac Type Severity Reaction Status Date / Time No Known Allergies Allergy Verified 05/22/22 09:13 Family History Father Cancer Lung Mother Heart disease Brother Heart disease CVA (cerebral vascular accident) Brother Heart disease Brother Heart disease Surgical History History of bilateral knee replacement History of coronary artery bypass graft x 3 (~05/27/21) History of total left knee replacement History of total right knee replacement Stented coronary artery (04/14/07) Social History household members: spouse housing: apartment pets and animals: No Smoking Status: Never smoker alcohol intake: never substance use type: does not use caffeine: Yes Type: carbonated beverages Number of servings: 1 Vital Signs Vital Signs Vital Signs: 07/17/22 13:51 Temperature 97.2 F L Temperature Source Temporal Pulse Rate 98 Respiratory Rate 18 Blood Pressure 146/105 H Blood Pressure Mean 118 Blood Pressure Source Monitor Blood Pressure Position Semi-Fowlers Blood Pressure Location Left Arm Physical Exam Const alert, oriented x3, no apparent distress and healthy appearing General Appearance: cooperative, comfortable and well kempt HEENT normocephalic, head/scalp atraumatic, hearing grossly normal bilaterally, external ears normal and external nose normal Eyes EOMs intact bilaterally General Eye: normal appearance of both eyes Neck General: normal visual inspection and trachea midline Resp normal respiratory effort, normal air movement, no retractions and no use of accessory muscles Effort and Inspection: able to speak in complete sentences; Negative for labo red, stridor or audible wheezes Extremity Extremity Narrative: Bilateral lower extremity edema. Bilateral DP/PT pulses diminished to palpation but biphasic signals on doppler. Bilateral lower extremities with appropriate warmth and color, normal capillary refill. Skin Wounds: wounds noted Wound Narrative: Wound noted to the left medial valentin. Does have a blistered appearance with a small opening which is draining blood/serosanguineous fluid. This opening tracks/undermines and so the blistered area was unroofed/opened up. It does have a focal narrow area of about 1.5 cm depth centrally but otherwise no significant tracking or depth to the rest of the wound. It does not feel as though it probes down to bone. There is no purulent material able to be expressed. There is no focal swelling, induration, fluctuance. There is no s urrounding erythema or discoloration. Neuro oriented x3, CN's II-XII intact bilaterally, moves all extremities and no focal motor deficits Speech: speech normal Psych mental status grossly normal Appearance: grossly normal Attitude: calm and engaged Activity / Motor Behavior: appropriate eye contact Speech: normal speech Mood & Affect: euthymic mood Attention / Concentration: attention grossly intact Memory / Cognition: memory grossly intact Insight: insight good Judgement: judgement good Debridement Note Debridement Note Post-Debridement Measurements and Additional Note: Post-Debridement Measurements/Treatment - Nurse 1 - General Ulcer Assessment Start: 07/17/22 13:51 Freq: Status: Active Protocol: SHARRI Activity Type Activity Date Activity User E-sign Co-sign Detail Recorded Client Recorded Date Recorded By Document 07/17/22 13:51 SAGE [id number] 07/17/22 14:00 07/17/22 13:51 WC - Today's Visit Information Type of service Follow-up Visit (Physician/AIR TRANSPORTATION PROVIDER ) Arrival Mode Ambulatory Patient Requires Transmission-Based No Precautions Safety Precautions NA Vital Signs Temperature (97.8 F-99.1 F) 97.2 F L Temperature Source Temporal Pulse Rate (60-100) 98 Pulse Location Monitor Respiratory Rate (12-18) 18 Respiratory rate source Monitor Blood Pressure (90/60-120/80) 146/105 H Blood Pressure Mean 118 Source Monitor Position Semi-Fowlers Blood Pressure Location Left Arm History Since Last Visit- (Skip if this is Patient's initial visit) Have you changed medications since your No last visit? Any new allergies or adverse reactions No Had a fall/change in ADL's that may No increase risk of falls Signs or symptoms of abuse and/or No neglect since last visit Have you been in the hospital since your No last visit? Has dressing in place as prescribed No Has compression in place as prescribed No Has offloadiing in place as prescribed N/A Experienced any changes in pain level or No management Left Footwear Regular Shoe Right Footwear Regular Shoe Pain Scale: 0-10 Numeric Is Patient Pain Free? Yes - Nurse 1 - General Ulcer Measurement Start: 07/17/22 13:51 Freq: Status: Active Protocol: Activity Type Activity Date Activity User E-sign Co-sign Detail Recorded Client Recorded Date Recorded By Document 07/17/22 13:51 [id number] 07/17/22 14:00 07/17/22 13:51 Wound Center Nurse 1 #2- L MEDIAL VALENTIN -Combined with other wound No -Current Size (cm) - Length 0.1 -Current Size (cm) - Width 0.1 -Current Size (cm) - Depth 0.1 -Total Square Cm 0.01 -Date of Last Picture (Recall this 07/17/22 field) -Photo Taken Yes -Slough/Fibrin Yes -Moisture (Floridalma-wound Skin Appearance) Assessed, Weeping -Color (Floridalma-wound Skin Appearance) Assessed, Erythema -Temperature (Floridalma-wound Skin No Abnormality Appearance) (Pt Warm) -Tenderness on Palpation (Floridalma-wound No Skin Appearance) -Ulcer Cleansing Rinsed/ Irrigated with Saline -Anesthetic Used 5% Lidocaine Gel Left Calf (cm) 37.4 Left Ankle (cm) 27.5 WC - Nurse 2 - General Ulcer CM Notes Start: 07/17/22 13:51 Freq: Status: Active Protocol: Activity Type Activity Date Activity User E-sign Co-sign Detail Recorded Client Recorded Date Recorded By Document 07/17/22 14:11 [id number] 07/17/22 14:24 07/17/22 14:11 Wound Center Nurse 2 #2- L MEDIAL VALENTIN -Time 14:18 -Correct Patient Yes -Correct Side, Site, Position Yes -Correct Procedure Yes -Procedure Performed Yes -Type of Procedure Debridement -Clinical Debridement Subcutaneous -Tissue Removed Subcutaneous -Post Debridement (cm) - Length 0.6 -Post Debridement (cm) - Width 0.5 -Post Debridement (cm) - Depth 1.5 -Total Square (Post) (cm) 0.30 -Area of Debridement (cm) - Length 0.6 -Area of Debridement (cm) - Width 0.5 -Total Square (Area) (cm) 0.30 -Tunneling No -Undermining/Tunneling No -Circular Undermining No -Wound/Ulcer Outcome Not Healed -Ulcer Cleansing Rinsed/ Irrigated with Saline -Foul Odor after Cleansing No -Bioengineered Tissue No -Bleeding Controlled with Pressure -Treatment Response Procedure Tolerated Well -Offloading No -Debridement - Subq, 1st 20sq cm Yes Pain Scale: 0-10 Numeric Is Patient Pain Free? Yes - Nurse 3 - General Ulcer D/C NN Start: 07/17/22 13:51 Freq: Status: Active Protocol: Activity Type Activity Date Activity User E-sign Co-sign Detail Recorded Client Recorded Date Recorded By Document 07/17/22 14:28 SAGE [id number] 07/17/22 14:37 SAGE 07/17/22 14:28 Wound Care Center Nurse 3 #2- L MEDIAL VALENTIN -Ulcer Cleansing Rinsed/ Irrigated with Saline -Foul Odor after Cleansing No -Primary Dressing Applied Promogran -Primary Dressing Covered/Secured with Dry Gauze & Roll Gauze, Secured with Tape -Promogran 1 Pain Scale: 0-10 Numeric Is Patient Pain Free? Yes WC - Visit Discharge Discharge Condition Stable Ambulatory Status Ambulatory Medication Reconcilliation completed & No provided to patient/care provider Clinical Summary of Care Provided Yes Charges/Coding Visit Charges Office Visits / Consults: 07013 OV L3 Est Procedures Integumentary [id number]: [id number] Hien subq tissue 20 sq cm/< Assessment/Plan Assessment/Plan (1) Non-pressure chronic ulcer of left lower leg with fat layer exposed: CODE(S): L97.922 - Non-pressure chronic ulcer of unspecified part of left lower leg with fat layer exposed PLAN: Plan As the wound has recurred, will obtain venous duplex imaging including assessment for reflux as well as x-ray. No signs or symptoms of infection today simple cultures were obtained. Will apply moistened Promogran to the wound bed try to gently pack the narrow central tracking as best as possible to promote healing from the inside outwards. Cover with Kerlix. Will wrap with Zenon bandage today for compression patient declines Tubigrips would prefer to wear his zipper compression stockings at home. Encouraged him to obtain updated measured compression stockings. Advised patient to elevate his legs frequently throughout the day and avoid prolonged sitting or standing possible. Patient will return to clinic in 1 week.
--- NOTE | 2022-07-22 13:36 | VDLE_ITS ---
Reason For Study: Venous Insufficiency RIGHT LEFT CFV is compressible, spontaneous, phasic, CFV is compressible, spontaneous, phasic, competent and demonstrates normal competent, and demonstrates normal augmentation. augmentation. FV is compressible, spontaneous, phasic, FV is compressible, spontaneous, phasic, competent and demonstrates normal competent and demonstrates normal augmentation. augmentation. POP V is compressible, spontaneous, phasic, Lt Pop V is compressible, spontaneous, competent and demonstrates normal phasic, INCOMPETENT, and demonstrates normal augmentation. augmentation T/P Trunk is compressible. Lt GSV was harvested for CABG from mid thigh PTV is compressible. to mid calf. RT PerV is compressible. T/P Trunk is compressible. SFJ is competent and measures 0.88cm x 0.93 PTV is compressible. cm. LT PerV is compressible. GSV proximal thigh measures 0.28cm x 0.27 cm. SFJ is competent and measures 0.33cm x 0.34 GSV at knee measures 0.27cm x 0.29 cm. cm. GSV above knee is competent. GSV proximal thigh measures 0.33cm x 0.36 cm. GSV below knee is INCOMPETENT for greater GSV is competent throughout. than 0.5 seconds. SSV proximal calf is INCOMPETENT for greater SSV proximal calf is INCOMPETENT for greater than 0.5 seconds and measures 0.53cm x 0.58 than 0.5 seconds and measures 0.49cm x 0.49 cm. cm. Procedure This is a venous duplex using B-mode, color flow and spectral Doppler. Exam performed in department. A preliminary report was called and/or faxed to Fani MURRIETA. VL/Venous Duplex US - Bry Extrem Interpretation Summary Deep veins of the bilateral lower extremities are patent and compressible segme ntally. There is no evidence of bilateral lower extremity deep vein thrombosis. The bilateral great saphenous veins appear patent and compressible segmentally. Positive for reflux in the right below knee great saphenous vein, small sapheno us vein Positive for reflux in the left small saphenous vein Ordering Physician: Fani Flores Referring Physician: Wilbert Pradhan Chi Performed By: Shonna Arias, YONATAN, RVT
--- NOTE | 2022-07-22 13:40 | RAD_ITS ---
STUDY: X-RAY - LEFT TIBIA AND FIBULA REASON FOR EXAM: Male, 76 years old. Extremity ulceration with tracking. TECHNIQUE: AP and lateral view(s) of the tibia and fibula were obtained. COMPARISON: None. FINDINGS: Artificial knee. The tibial component is in intact without loosening from the underlying bone. The remainder of the tibial shaft is unremarkable. Normal visualized fibula. There is no acute fracture, dislocation or destructive osseous pathology. Mild degenerative changes of the ankle. Generalized soft tissue swelling of the lower leg and ankle. RAD/Tibia & Fibula 2 Views IMPRESSION: 1. Intact total knee arthroplasty. 2. Mild degenerative changes of the ankle with soft tissue swelling. Electronically Signed: Zeus Salomon DO at 23:17 EDT ,
--- NOTE | 2022-07-24 07:30 | PCM.WC.PN ---
History of Present Illness Date of Service: 07/24/22 Chief Complaint: Ulceration, left posterior calf History of Wound: Patient is a 76-year-old male who presents to the wound care center today for evaluation of a recurrent left anteromedial lower leg wound. He is well known to me as I treated him here for this ulcer prior and he was in fact just discharged 3 weeks ago. He reports that over the last couple of days he has noticed a blood blister form and then when he was showering it opened up and began to drain. He does not recall any injury to the area. Lst May he had CABG with venous harvesting from left lower extremity. He reports that this wound is in about the same area as a prior retained suture from this vein harvesting. He says that suture was ultimately removed and the associated small wound healed over with no issues until recently. Last November, he had right lower extremity cellulitis and associated sepsis. Last December he had a small posterior left calf wound for which he followed at the wound care center. His past medical history is significant for CAD status post CABG, A-fib, hypothyroidism, CKD, sleep apnea, bilateral TKR. He does have bilateral lower extremity edema. He is not diabetic. He does not smoke. He is on Eliquis. He has been wearing [facility]pered [facility] These are few years old and I did previously instructed to obtain new measured compression stockings and he tells me he has an [facility] for [facility]. Subjective Subjective He obtained new measured compression stockings today. Wound is a bit larger today than last week, narrow tunneling is the same. He has not really been attempting to pack the tunnel well with promogran. Objective Data Objective Data Vital Signs: Vital Signs Temp Pulse Resp BP 97.2 F L 98 18 146/105 H 07/17/22 13:51 07/17/22 13:51 07/17/22 13:51 07/17/22 13:51 Radiography Diagnostic Testing: Radiology Impression Venous Doppler Study 07/22/22 13:36 Interpretation Summary Deep veins of the bilateral lower extremities are patent and compressible segmentally. There is no evidence of bilateral lower extremity deep vein thrombosis. The bilateral great saphenous veins appear patent and compressible segmentally. Positive for reflux in the right below knee great saphenous vein, small saphenous vein Positive for reflux in the left small saphenous vein Ordering Physician: Fani Flores Referring Physician: Wilbert Pradhan Chi Performed By: Shonna Arias, YONATAN, RVT Charges/Coding Procedures Integumentary 111xxx-113xx: [id number] Hien subq tissue 20 sq cm/< Physical Exam Const alert, oriented x3, no apparent distress and healthy appearing General Appearance: cooperative, comfortable and well kempt HEENT normocephalic, head/scalp atraumatic, hearing grossly normal bilaterally, external ears normal and external nose normal Eyes EOMs intact bilaterally General Eye: normal appearance of both eyes Neck General: normal visual inspection and trachea midline Resp normal respiratory effort, normal air movement, no retractions and no use of accessory muscles Effort and Inspection: able to speak in complete sentences; Negative for labored, stridor or audible wheezes Extremity Extremity Narrative: Bilateral lower extremity edema. Bilateral DP/PT pulses diminished to palpation but biphasic signals on doppler. Bilateral lower extremities with appropriate warmth and color, normal capillary refill. Skin Wounds: wounds noted Wound Narrative: Wound noted to the left medial valentin. Initially with a blistered appearance which was opened up, now with island of tissue centrally but still with narrow tracking of about 1.5 cm depth but otherwise no significant tracking or depth to the rest of the wound. There is no purulent material able to be expressed. There is no focal swelling, induration, fluctuance. There is no surrounding erythema or discoloration. Neuro oriented x3, CN's II-XII intact bilaterally, moves all extremities and no focal motor deficits Speech: speech normal Psych mental status grossly normal Appearance: grossly normal Attitude: calm and engaged Activity / Motor Behavior: appropriate eye contact Speech: normal speech Mood & Affect: euthymic mood Attention / Concentration: attention grossly intact Memory / Cognition: memory grossly intact Insight: insight good Judgement: judgement good Debridement Note Debridement Note Wound debrided: Left lower leg Laterality: Left Type of Debridement: Excisional debridement Depth: Down to and including healthy tissue and in the subcutaneous layer Percentage of wound debrided: 100 Instrument Used: 3mm curette and #15 blade Tissue Removed: slough, devitalized tissue Severity: Fat Layer Exposed Amount of bleeding with debridement: Mild Bleeding Controlled with: Silver Nitrate Patient tolerated procedure: Patient tolerated procedure well Post-Debridement Measurements and Additional Note: Post-Debridement Measurements/Treatment - Nurse 1 - General Ulcer Assessment Start: 07/17/22 13:51 Freq: Status: Active Protocol: SHARRI Activity Type Activity Date Activity User E-sign Co-sign Detail Recorded Client Recorded Date Recorded By Document 07/17/22 13:51 [id number] 07/17/22 14:00 07/17/22 13:51 - Today's Visit Information Type of service Follow-up Visit (Physician/AIRBRUSH ARTIST PHOTOGRAPHY ) Arrival Mode Ambulatory Patient Requires Transmission-Based No Precautions Safety Precautions NA Vital Signs Temperature (97.8 F-99.1 F) 97.2 F L Temperature Source Temporal Pulse Rate (60-100) 98 Pulse Location Monitor Respiratory Rate (12-18) 18 Respiratory rate source Monitor Blood Pressure (90/60-120/80) 146/105 H Blood Pressure Mean (mm Hg) 118 Source Monitor Position Semi-Fowlers Blood Pressure Location Left Arm History Since Last Visit- (Skip if this is Patient's initial visit) Have you changed medications since your No last visit? Any new allergies or adverse reactions No Had a fall/change in ADL's that may No increase risk of falls Signs or symptoms of abuse and/or No neglect since last visit Have you been in the hospital since your No last visit? Has dressing in place as prescribed No Has compression in place as prescribed No Has offloadiing in place as prescribed N/A Experienced any changes in pain level or No management Left Footwear Regular Shoe Right Footwear Regular Shoe Pain Scale: 0-10 Numeric Is Patient Pain Free? Yes - Nurse 1 - General Ulcer Measurement Start: 07/17/22 13:51 Freq: Status: Active Protocol: Activity Type Activity Date Activity User E-sign Co-sign Detail Recorded Client Recorded Date Recorded By Document 07/17/22 13:51 KW [id number] 07/17/22 14:00 07/17/22 13:51 Wound Center Nurse 1 #2- L MEDIAL VALENTIN -Combined with other wound No -Current Size (cm) - Length 0.1 -Current Size (cm) - Width 0.1 -Current Size (cm) - Depth 0.1 -Total Square Cm 0.01 -Date of Last Picture (Recall this 07/17/22 field) -Photo Taken Yes -Slough/Fibrin Yes -Moisture (Floridalma-wound Skin Appearance) Assessed, Weeping -Color (Floridalma-wound Skin Appearance) Assessed, Erythema -Temperature (Floridalma-wound Skin No Abnormality Appearance) (Pt Warm) -Tenderness on Palpation (Floridalma-wound No Skin Appearance) -Ulcer Cleansing Rinsed/ Irrigated with Saline -Anesthetic Used 5% Lidocaine Gel Left Calf (cm) 37.4 Left Ankle (cm) 27.5 WC - Nurse 2 - General Ulcer CM Notes Start: 07/17/22 13:51 Freq: Status: Active Protocol: Activity Type Activity Date Activity User E-sign Co-sign Detail Recorded Client Recorded Date Recorded By Document 07/17/22 14:11 [id number] 07/17/22 14:24 07/17/22 14:11 Wound Center Nurse 2 #2- L MEDIAL VALENTIN -Time 14:18 -Correct Patient Yes -Correct Side, Site, Position Yes -Correct Procedure Yes -Procedure Performed Yes -Type of Procedure Debridement -Clinical Debridement Subcutaneous -Tissue Removed Subcutaneous -Post Debridement (cm) - Length 0.6 -Post Debridement (cm) - Width 0.5 -Post Debridement (cm) - Depth 1.5 -Total Square (Post) (cm) 0.30 -Area of Debridement (cm) - Length 0.6 -Area of Debridement (cm) - Width 0.5 -Total Square (Area) (cm) 0.30 -Tunneling No -Undermining/Tunneling No -Circular Undermining No -Wound/Ulcer Outcome Not Healed -Ulcer Cleansing Rinsed/ Irrigated with Saline -Foul Odor after Cleansing No -Bioengineered Tissue No -Bleeding Controlled with Pressure -Treatment Response Procedure Tolerated Well -Offloading No -Debridement - Subq, 1st 20sq cm Yes Pain Scale: 0-10 Numeric Is Patient Pain Free? Yes JUNE - Nurse 3 - General Ulcer D/C NN Start: 07/17/22 13:51 Freq: Status: Active Protocol: Activity Type Activity Date Activity User E-sign Co-sign Detail Recorded Client Recorded Date Recorded By Document 07/17/22 14:28 [id number] 07/17/22 14:37 07/17/22 14:28 Wound Care Center Nurse 3 #2- L MEDIAL VALENTIN -Ulcer Cleansing Rinsed/ Irrigated with Saline -Foul Odor after Cleansing No -Primary Dressing Applied Promogran -Primary Dressing Covered/Secured with Dry Gauze & Roll Gauze, Secured with Tape -Promogran 1 Pain Scale: 0-10 Numeric Is Patient Pain Free? Yes WC - Visit Discharge Discharge Condition Stable Ambulatory Status Ambulatory Medication Reconcilliation completed & No provided to patient/care provider Clinical Summary of Care Provided Yes Assessment/Plan Assessment/Plan (1) Non-pressure chronic ulcer of left lower leg with fat layer exposed: CODE(S): L97.922 - Non-pressure chronic ulcer of unspecified part of left lower leg with fat layer exposed PLAN: Plan XR did not show any evidence of osteomyelitis or retained foreign object. Duplex results revealed some venous insufficiency but not necessarily in the area of the wound. Will apply moistened Promogran to the wound bed try to gently pack the narrow central tracking as best as possible to promote healing from the inside outwards. Cover with Kerlix. Continue with compression stockings. Advised patient to elevate his legs frequently throughout the day and avoid prolonged sitting or standing possible. Patient will return to clinic in 1 week.
[2022-07-24 12:14] VITALS: BP 130/66; PULSE 108; RESP 18; TEMP 36.6
--- NOTE | 2022-07-31 08:04 | PCM.WC.PN ---
History of Present Illness Date of Service: 07/31/22 Chief Complaint: Ulceration, left posterior calf History of Wound: Patient is a 76-year-old male who presents to the wound care center today for evaluation of a recurrent left anteromedial lower leg wound. He is well known to me as I treated him here for this ulcer prior and he was in fact just discharged 3 weeks ago. He reports that over the last couple of days he has noticed a blood blister form and then when he was showering it opened up and began to drain. He does not recall any injury to the area. Lst May he had CABG with venous harvesting from left lower extremity. He reports that this wound is in about the same area as a prior retained suture from this vein harvesting. He says that suture was ultimately removed and the associated small wound healed over with no issues until recently. Last November, he had right lower extremity cellulitis and associated sepsis. Last December he had a small posterior left calf wound for which he followed at the wound care center. His past medical history is significant for CAD status post CABG, A-fib, hypothyroidism, CKD, sleep apnea, bilateral TKR. He does have bilateral lower extremity edema. He is not diabetic. He does not smoke. He is on Eliquis. He has been wearing zippered [facility]. These are few years old and I did previously instructed to obtain new measured compression stockings and he tells me he has an [facility] for [facility]. Objective Data Objective Data Vital Signs: Vital Signs Temp Pulse Resp BP 97.8 F 108 H 18 130/66 H 07/24/22 12:14 07/24/22 12:14 07/24/22 12:14 07/24/22 12:14 Physical Exam Const alert, oriented x3, no apparent distress and healthy appearing General Appearance: cooperative, comfortable and well kempt HEENT normocephalic, head/scalp atraumatic, hearing grossly normal bilaterally, external ears normal and external nose normal Eyes EOMs intact bilaterally General Eye: normal appearance of both eyes Neck General: normal visual inspection and trachea midline Resp normal respiratory effort, normal air movement, no retractions and no use of accessory muscles Effort and Inspection: able to speak in complete sentences; Negative for labored, stridor or audible wheezes Extremity Extremity Narrative: Bilateral lower extremity edema. Bilateral DP/PT pulses diminished to palpation but biphasic signals on doppler. Bilateral lower extremities with appropriate warmth and color, normal capillary refill. Skin Wounds: wounds noted Wound Narrative: Wound noted to the left medial valentin. Initially with a blistered appearance which was opened up, now with island of tissue centrally but still with narrow tracking of about 1.5 cm depth but otherwise no significant tracking or depth to the rest of the wound. There is no purulent material able to be expressed. There is no focal swelling, induration, fluctuance. There is no surrounding erythema or discoloration. Neuro oriented x3, CN's II-XII intact bilaterally, moves all extremities and no focal motor deficits Speech: speech normal Psych mental status grossly normal Appearance: grossly normal Attitude: calm and engaged Activity / Motor Behavior: appropriate eye contact Speech: normal speech Mood & Affect: euthymic mood Attention / Concentration: attention grossly intact Memory / Cognition: memory grossly intact Insight: insight good Judgement: judgement good Debridement Note Debridement Note Wound debrided: Left lower leg Laterality: Left Type of Debridement: Excisional debridement Depth: Down to and including healthy tissue and in the subcutaneous layer Percentage of wound debrided: 100 Instrument Used: 3mm curette and #15 blade Tissue Removed: slough, devitalized tissue Severity: Fat Layer Exposed Amount of bleeding with debridement: Mild Bleeding Controlled with: Silver Nitrate Patient tolerated procedure: Patient tolerated procedure well Post-Debridement Measurements and Additional Note: Post-Debridement Measurements/Treatment - Nurse 1 - General Ulcer Assessment Start: 07/17/22 13:51 Freq: Status: Active Protocol: JUNE.EDVIN Activity Type Activity Date Activity User E-sign Co-sign Detail Recorded Client Recorded Date Recorded By Document 07/17/22 13:51 [id number] 07/17/22 14:00 KW Document 07/24/22 12:14 PL [id number] 07/24/22 12:18 PL 07/17/22 07/24/22 13:51 12:14 - Today's Visit Information Type of service Follow-up Visit Follow-up Visit (Physician/AUTOMATIC SCREWMAKER (Physician/AUTOMATIC SCREWMAKER ) ) Arrival Mode Ambulatory Ambulatory Transfer Assistance None Patient Identification Verified (Name & Yes ) Patient Requires Transmission-Based No Precautions Safety Precautions NA NA Vital Signs Temperature (97.8 F-99.1 F) 97.2 F L 97.8 F Temperature Source Temporal Temporal Pulse Rate (60-100) 98 108 H Pulse Location Monitor Respiratory Rate (12-18) 18 18 Respiratory rate source Monitor Blood Pressure (90/60-120/80) 146/105 H 130/66 H Blood Pressure Mean (mm Hg) 118 87 Source Monitor Position Semi-Fowlers Blood Pressure Location Left Arm History Since Last Visit- (Skip if this is Patient's initial visit) Have you changed medications since your No No last visit? Any new allergies or adverse reactions No No Had a fall/change in ADL's that may No No increase risk of falls Signs or symptoms of abuse and/or No No neglect since last visit Have you been in the hospital since your No No last visit? Has dressing in place as prescribed No Yes Has compression in place as prescribed No Yes Has offloadiing in place as prescribed N/A N/A Experienced any changes in pain level or No No management Left Footwear Regular Shoe Right Footwear Regular Shoe Pain Scale: 0-10 Numeric Is Patient Pain Free? Yes Yes WC - Nurse 1 - General Ulcer Measurement Start: 07/17/22 13:51 Freq: Status: Active Protocol: Activity Type Activity Date Activity User E-sign Co-sign Detail Recorded Client Recorded Date Recorded By Document 07/17/22 13:51 [id number] 07/17/22 14:00 07/17/22 13:51 Wound Center Nurse 1 #2- L MEDIAL VALENTIN -Combined with other wound No -Current Size (cm) - Length 0.1 -Current Size (cm) - Width 0.1 -Current Size (cm) - Depth 0.1 -Total Square Cm 0.01 -Date of Last Picture (Recall this 07/17/22 field) -Photo Taken Yes -Slough/Fibrin Yes -Moisture (Floridalma-wound Skin Appearance) Assessed, Weeping -Color (Floridalma-wound Skin Appearance) Assessed, Erythema -Temperature (Floridalma-wound Skin No Abnormality Appearance) (Pt Warm) -Tenderness on Palpation (Floridalma-wound No Skin Appearance) -Ulcer Cleansing Rinsed/ Irrigated with Saline -Anesthetic Used 5% Lidocaine Gel Left Calf (cm) 37.4 Left Ankle (cm) 27.5 WC - Nurse 2 - General Ulcer CM Notes Start: 07/17/22 13:51 Freq: Status: Active Protocol: Activity Type Activity Date Activity User E-sign Co-sign Detail Recorded Client Recorded Date Recorded By Document 07/17/22 14:11 [id number] 07/17/22 14:24 Document 07/24/22 14:43 PL [id number] 07/24/22 14:48 PL 07/17/22 07/24/22 14:11 14:43 Wound Center Nurse 2 #2- L MEDIAL VALENTIN -Time 14:18 12:07 -Correct Patient Yes Yes -Correct Side, Site, Position Yes Yes -Correct Procedure Yes Yes -Procedure Performed Yes Yes -Type of Procedure Debridement Debridement -Clinical Debridement Subcutaneous Subcutaneous -Tissue Removed Subcutaneous Subcutaneous -Post Debridement (cm) - Length 0.6 0.6 -Post Debridement (cm) - Width 0.5 0.5 -Post Debridement (cm) - Depth 1.5 1.5 -Total Square (Post) (cm) 0.30 0.30 -Area of Debridement (cm) - Length 0.6 0.6 -Area of Debridement (cm) - Width 0.5 0.5 -Total Square (Area) (cm) 0.30 0.30 -Tunneling No No -Undermining/Tunneling No No -Circular Undermining No No -Wound/Ulcer Outcome Not Healed Not Healed -Ulcer Cleansing Rinsed/ Rinsed/ Irrigated with Irrigated with Saline Saline -Foul Odor after Cleansing No No -Bioengineered Tissue No No -Bleeding Controlled with Pressure Pressure -Treatment Response Procedure Procedure Tolerated Well Tolerated Well -Offloading No -Debridement - Subq, 1st 20sq cm Yes Yes Pain Scale: 0-10 Numeric Is Patient Pain Free? Yes Yes WC - Nurse 3 - General Ulcer D/C NN Start: 07/17/22 13:51 Freq: Status: Active Protocol: Activity Type Activity Date Activity User E-sign Co-sign Detail Recorded Client Recorded Date Recorded By Document 07/17/22 14:28 [id number] 07/17/22 14:37 KW Document 07/24/22 12:34 KW [id number] 07/24/22 12:34 KW 07/17/22 07/24/22 14:28 12:34 Wound Care Center Nurse 3 #2- L MEDIAL VALENTIN -Ulcer Cleansing Rinsed/ Rinsed/ Irrigated with Irrigated with Saline Saline -Foul Odor after Cleansing No -Primary Dressing Applied Promogran Promogran -Primary Dressing Covered/Secured with Dry Gauze & Dry Gauze Roll Gauze, Secured with Tape -Promogran 1 1 Pain Scale: 0-10 Numeric Is Patient Pain Free? Yes Yes WC - Visit Discharge Discharge Condition Stable Stable Ambulatory Status Ambulatory Ambulatory Transportation Private Auto Medication Reconcilliation completed & No No provided to patient/care provider Clinical Summary of Care Provided Yes Yes Assessment/Plan Assessment/Plan (1) Non-pressure chronic ulcer of left lower leg with fat layer exposed: CODE(S): L97.922 - Non-pressure chronic ulcer of unspecified part of left lower leg with fat layer exposed PLAN: Plan XR did not show any evidence of osteomyelitis or retained foreign object. Duplex results revealed some venous insufficiency but not necessarily in the area of the wound. However, the wound is in the approximate location of GSV graft harvest. The wound was enlarged today during debridement to allow for packing of the track and to directly observe for possible retained suture. Will apply moistened Promogran to the wound bed try to gently pack the narrow central tracking as best as possible to promote healing from the inside outwards. Cover with Kerlix. Continue with compression stockings. Advised patient to elevate his legs frequently throughout the day and avoid prolonged sitting or standing possible. Patient will return to clinic in 1 week.
--- NOTE | 2022-08-07 07:14 | PN.PCM_ITS ---
History of Present Illness Date of Service: 08/07/22 Chief Complaint: Ulceration, left posterior calf History of Wound: Patient is a 76-year-old male who presents to the wound care center today for evaluation of a recurrent left anteromedial lower leg wound. He is well known to me as I treated him here for this ulcer prior and he was in fact just discharged 3 weeks ago. He reports that over the last couple of days he has noticed a blood blister form and then when he was showering it opened up and began to drain. He does not recall any injury to the area. Lst May he had CABG with venous harvesting from left lower extremity. He reports that this wound is in about the same area as a prior retained suture from this vein harvesting. He says that suture was ultimately removed and the associated small wound healed over with no issues until recently. Last November, he had right lower extremity cellulitis and associated sepsis. Last December he had a small posterior left calf wound for which he followed at the wound care center. His past medical history is significant for CAD status post CABG, A-fib, hypothyroidism, CKD, sleep apnea, bilateral TKR. He does have bilateral lower extremity edema. He is not diabetic. He does not smoke. He is on Eliquis. He has been wearing zippered compression [facility]. These are few years old and I did previously instructed to obtain new measured compression stockings and he tells me he has an [facility] for [facility]. Subjective Subjective Wound is stable in size. He is not packing the tunnel, he has not tried as it makes him uncomfortable to do so. Objective Data Objective Data Vital Signs: Vital Signs Temp Pulse Resp BP 97.8 F 108 H 18 130/66 H 07/24/22 12:14 07/24/22 12:14 07/24/22 12:14 07/24/22 12:14 Charges/Coding Procedures Integumentary 111xxx-113xx: 98605 Hien subq tissue 20 sq cm/< Physical Exam Const alert, oriented x3, no apparent distress and healthy appearing General Appearance: cooperative, comfortable and well kempt HEENT normocephalic, head/scalp atraumatic, hearing grossly normal bilaterally, external ears normal and external nose normal Eyes EOMs intact bilaterally General Eye: normal appearance of both eyes Neck General: normal visual inspection and trachea midline Resp normal respiratory effort, normal air movement, no retractions and no use of accessory muscles Effort and Inspection: able to speak in complete sentences; Negative for labored, stridor or audible wheezes Extremity Extremity Narrative: Bilateral lower extremity edema. Bilateral DP/PT pulses diminished to palpation but biphasic signals on doppler. Bilateral lower extremities with appropriate warmth and color, normal capillary refill. Skin Wounds: wounds noted Wound Narrative: Wound noted to the left medial valentin. Initially with a blistered appearance which was opened up, now with island of tissue centrally but still with narrow tracking of about 1.5 cm depth but otherwise no significant tracking or depth to the rest of the wound. There is no purulent material able to be expressed. There is no focal swelling, induration, fluctuance. There is no surrounding erythema or discoloration. Neuro oriented x3, CN's II-XII intact bilaterally, moves all extremities and no focal motor deficits Speech: speech normal Psych mental status grossly normal Appearance: grossly normal Attitude: calm and engaged Activity / Motor Behavior: appropriate eye contact Speech: normal speech Mood & Affect: euthymic mood Attention / Concentration: attention grossly intact Memory / Cognition: memory grossly intact Insight: insight good Judgement: judgement good Debridement Note Debridement Note Wound debrided: Left lower leg Laterality: Left Anesthesia Used: - (1% lidocaine with epi) Depth: Down to and including healthy tissue and in the subcutaneous layer Percentage of wound debrided: 100 Instrument Used: #15 blade Tissue Removed: slough, devitalized tissue Severity: Fat Layer Exposed Amount of bleeding with debridement: Mild Bleeding Controlled with: Silver Nitrate Patient tolerated procedure: Patient tolerated procedure well Post-Debridement Measurements and Additional Note: Post-Debridement Measurements/Treatment - Nurse 1 - General Ulcer Assessment Start: 07/17/22 13:51 Freq: Status: Active Protocol: JUNE.EDVIN Activity Type Activity Date Activity User E-sign Co-sign Detail Recorded Client Recorded Date Recorded By Document 07/17/22 13:51 KW [id number] 07/17/22 14:00 KW Document 07/24/22 12:14 PL [id number] 07/24/22 12:18 PL 07/17/22 07/24/22 13:51 12:14 - Today's Visit Information Type of service Follow-up Visit Follow-up Visit (Physician/BUSINESS INTELLIGENCE ARCHITECT (Physician/BUSINESS INTELLIGENCE ARCHITECT ) ) Arrival Mode Ambulatory Ambulatory Transfer Assistance None Patient Identification Verified (Name & Yes ) Patient Requires Transmission-Based No Precautions Safety Precautions NA NA Vital Signs Temperature (97.8 F-99.1 F) 97.2 F L 97.8 F Temperature Source Temporal Temporal Pulse Rate (60-100) 98 108 H Pulse Location Monitor Respiratory Rate (12-18) 18 18 Respiratory rate source Monitor Blood Pressure (90/60-120/80) 146/105 H 130/66 H Blood Pressure Mean (mm Hg) 118 87 Source Monitor Position Semi-Fowlers Blood Pressure Location Left Arm History Since Last Visit- (Skip if this is Patient's initial visit) Have you changed medications since your No No last visit? Any new allergies or adverse reactions No No Had a fall/change in ADL's that may No No increase risk of falls Signs or symptoms of abuse and/or No No neglect since last visit Have you been in the hospital since your No No last visit? Has dressing in place as prescribed No Yes Has compression in place as prescribed No Yes Has offloadiing in place as prescribed N/A N/A Experienced any changes in pain level or No No management Left Footwear Regular Shoe Right Footwear Regular Shoe Pain Scale: 0-10 Numeric Is Patient Pain Free? Yes Yes WC - Nurse 1 - General Ulcer Measurement Start: 07/17/22 13:51 Freq: Status: Active Protocol: Activity Type Activity Date Activity User E-sign Co-sign Detail Recorded Client Recorded Date Recorded By Document 07/17/22 13:51 [id number] 07/17/22 14:00 07/17/22 13:51 Wound Center Nurse 1 #2- L MEDIAL VALENTIN -Combined with other wound No -Current Size (cm) - Length 0.1 -Current Size (cm) - Width 0.1 -Current Size (cm) - Depth 0.1 -Total Square Cm 0.01 -Date of Last Picture (Recall this 07/17/22 field) -Photo Taken Yes -Slough/Fibrin Yes -Moisture (Floridalma-wound Skin Appearance) Assessed, Weeping -Color (Floridalma-wound Skin Appearance) Assessed, Erythema -Temperature (Floridalma-wound Skin No Abnormality Appearance) (Pt Warm) -Tenderness on Palpation (Floridalma-wound No Skin Appearance) -Ulcer Cleansing Rinsed/ Irrigated with Saline -Anesthetic Used 5% Lidocaine Gel Left Calf (cm) 37.4 Left Ankle (cm) 27.5 - Nurse 2 - General Ulcer CM Notes Start: 07/17/22 13:51 Freq: Status: Active Protocol: Activity Type Activity Date Activity User E-sign Co-sign Detail Recorded Client Recorded Date Recorded By Document 07/17/22 14:11 [id number] 07/17/22 14:24 JF Document 07/24/22 14:43 PL [id number] 07/24/22 14:48 PL 07/17/22 07/24/22 14:11 14:43 Wound Center Nurse 2 #2- L MEDIAL VALENTIN -Time 14:18 12:07 -Correct Patient Yes Yes -Correct Side, Site, Position Yes Yes -Correct Procedure Yes Yes -Procedure Performed Yes Yes -Type of Procedure Debridement Debridement -Clinical Debridement Subcutaneous Subcutaneous -Tissue Removed Subcutaneous Subcutaneous -Post Debridement (cm) - Length 0.6 0.6 -Post Debridement (cm) - Width 0.5 0.5 -Post Debridement (cm) - Depth 1.5 1.5 -Total Square (Post) (cm) 0.30 0.30 -Area of Debridement (cm) - Length 0.6 0.6 -Area of Debridement (cm) - Width 0.5 0.5 -Total Square (Area) (cm) 0.30 0.30 -Tunneling No No -Undermining/Tunneling No No -Circular Undermining No No -Wound/Ulcer Outcome Not Healed Not Healed -Ulcer Cleansing Rinsed/ Rinsed/ Irrigated with Irrigated with Saline Saline -Foul Odor after Cleansing No No -Bioengineered Tissue No No -Bleeding Controlled with Pressure Pressure -Treatment Response Procedure Procedure Tolerated Well Tolerated Well -Offloading No -Debridement - Subq, 1st 20sq cm Yes Yes Pain Scale: 0-10 Numeric Is Patient Pain Free? Yes Yes - Nurse 3 - General Ulcer D/C NN Start: 07/17/22 13:51 Freq: Status: Active Protocol: Activity Type Activity Date Activity User E-sign Co-sign Detail Recorded Client Recorded Date Recorded By Document 07/17/22 14:28 [id number] 07/17/22 14:37 KW Document 07/24/22 12:34 [id number] 07/24/22 12:34 KW 07/17/22 07/24/22 14:28 12:34 Wound Care Center Nurse 3 #2- L MEDIAL VALENTIN -Ulcer Cleansing Rinsed/ Rinsed/ Irrigated with Irrigated with Saline Saline -Foul Odor after Cleansing No -Primary Dressing Applied Promogran Promogran -Primary Dressing Covered/Secured with Dry Gauze & Dry Gauze Roll Gauze, Secured with Tape -Promogran 1 1 Pain Scale: 0-10 Numeric Is Patient Pain Free? Yes Yes WC - Visit Discharge Discharge Condition Stable Stable Ambulatory Status Ambulatory Ambulatory Transportation Private Auto Medication Reconcilliation completed & No No provided to patient/care provider Clinical Summary of Care Provided Yes Yes Assessment/Plan Assessment/Plan (1) Non-pressure chronic ulcer of left lower leg with fat layer exposed: CODE(S): L97.922 - Non-pressure chronic ulcer of unspecified part of left lower leg with fat layer exposed PLAN: Plan Performed a more extensive debridement today, tried to open the tunnel for easier packing. Did not reveal any foreing body/retained suture in the area debrided today. Continue to apply moistened Promogran to the wound bed try to pack the central tracking. Cover with Kerlix. Continue with compression stockings. Advised p atient to elevate his legs frequently throughout the day and avoid prolonged sitting or standing possible. Patient will return to clinic in 1 week.
[2022-08-07 13:50] VITALS: BP 129/75; PULSE 104; RESP 18; TEMP 36.1
== END 2022-08-07 23:59 | disposition home or self-care (01) ==
LOC: WC 13:30
PROVIDERS: PCP Family Medicine Geriatric Medicine; Referring Provider Family Medicine Geriatric Medicine; Visit Provider Physician Assistant
DX: L97.222 Non-pressure chronic ulcer of left calf with fat layer exposed (principal); I48.91 Unspecified atrial fibrillation; N18.30 Chronic kidney disease, stage 3 unspecified; R60.0 Localized edema; Z79.01 Long term (current) use of anticoagulants; I25.10 Atherosclerotic heart disease of native coronary artery without angina pectoris; K21.9 Gastro-esophageal reflux disease without esophagitis; I12.9 Hypertensive chronic kidney disease with stage 1 through stage 4 chronic kidney disease, or unspecified chronic kidney disease; E78.5 Hyperlipidemia, unspecified; E03.9 Hypothyroidism, unspecified; G47.33 Obstructive sleep apnea (adult) (pediatric); Z79.899 Other long term (current) drug therapy; Z79.82 Long term (current) use of aspirin; Z79.890 Hormone replacement therapy
CPT/HCPCS: 11042; 73590; 93970

== ENCOUNTER 2022-08-24 14:00 | Outpatient (RCR) | payer MEDICARE, OTHER, SELFPAY ==
[2021-09-17 08:31] VITALS: BMI 38.4
[2022-08-08 01:40] VITALS: BP 129/75; PULSE 104; RESP 18; TEMP 36.1
[2022-08-14 11:46] VITALS: BP 125/78; PULSE 90; RESP 18; TEMP 36.6
--- NOTE | 2022-08-14 12:40 | PN.PCM_ITS ---
History of Present Illness Date of Service: 08/14/22 Chief Complaint: Ulceration, left posterior calf History of Wound: Patient is a 76-year-old male who presents to the wound care center today for evaluation of a recurrent left anteromedial lower leg wound. He is well known to me as I treated him here for this ulcer prior and he was in fact just discharged 3 weeks ago. He reports that over the last couple of days he has noticed a blood blister form and then when he was showering it opened up and began to drain. He does not recall any injury to the area. 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 He reports that this wound is in about the same area as a prior retained suture from this vein harvesting. He says that about 6 months ago the visible portion of that retained suture was ultimately removed and the associated small wound initially healed over but has since been recurrent. Last November, he had right lower extremity cellulitis and associated sepsis. Last December he had a small posterior left calf wound for which he followed at the wound care center. His past medical history is significant for CAD status post CABG, A-fib, hypothyroidism, CKD, sleep apnea, bilateral TKR. He does have bilateral lower extremity edema. He is not diabetic. He does not smoke. He is on Eliquis. He has been wearing zippered compression [facility], he just obtained new ones within the last month. Subjective Subjective Patient continues to perform wound care as directed with the exception of packing the tunneling, he finds this too difficult to do. He states he is wearing his compression stockings as directed. He denies any new or worsening pain, edema, redness in the lower extremities. He denies N/V, F/C. Last week used local anesthesia and attempted a wider/deeper debridement which was limited by patient's bleeding. It has already healed and reduced in size just since last week, but the tunnel remains stable in depth with no significant changed. Objective Data Objective Data Vital Signs: Vital Signs Temp Pulse Resp BP 97.8 F 90 18 125/78 H 08/14/22 11:46 08/14/22 11:46 08/14/22 11:46 08/14/22 11:46 Charges/Coding Procedures Integumentary 111xxx-113xx: [id number] Hien subq tissue 20 sq cm/< Physical Exam Const alert, oriented x3, no apparent distress and healthy appearing General Appearance: cooperative, comfortable and well kempt HEENT normocephalic, head/scalp atraumatic, hearing grossly normal bilaterally, external ears normal and external nose normal Eyes EOMs intact bilaterally General Eye: normal appearance of both eyes Neck General: normal visual inspection and trachea midline Resp normal respiratory effort, normal air movement, no retractions and no use of accessory muscles Effort and Inspection: able to speak in complete sentences; Negative for labored, stridor or audible wheezes Extremity Extremity Narrative: Bilateral lower extremity edema. Bilateral DP/PT pulses diminished to palpation but biphasic signals on doppler. Bilateral lower extremities with appropriate warmth and color, normal capillary refill. Skin Wounds: wounds noted Wound Narrative: Wound noted to the left medial valentin. Initially with a blistered appearance which I unroofed, now with island of tissue centrally but still with a narrow tracking of about 1.5 cm depth at the superomedial aspect of the wound but otherwise no significant tracking or depth to the rest of the wound. There is no purulent material able to be expressed. There is no focal swelling, induration, fluctuance. There is no surrounding erythema or discoloration. Neuro oriented x3, CN's II-XII intact bilaterally, moves all extremities and no focal motor deficits Speech: speech normal Psych mental status grossly normal Appearance: grossly normal Attitude: calm and engaged Activity / Motor Behavior: appropriate eye contact Speech: normal speech Mood & Affect: euthymic mood Attention / Concentration: attention grossly intact Memory / Cognition: memory grossly intact Insight: insight good Judgement: judgement good Debridement Note Debridement Note Wound debrided: Left lower leg Laterality: Left Anesthesia Used: 5% Lidocaine Gel Depth: Down to and including healthy tissue and in the subcutaneous layer Percentage of wound debrided: 100 Instrument Used: 3mm curette Tissue Removed: slough, devitalized tissue Severity: Fat Layer Exposed Amount of bleeding with debridement: Mild Bleeding Controlled with: Silver Nitrate Patient tolerated procedure: Patient tolerated procedure well Post-Debridement Measurements and Additional Note: Post-Debridement Measurements/Treatment JUNE - Nurse 1 - General Ulcer Assessment Start: 08/14/22 11:45 Freq: Status: Active Protocol: SHARRI Activity Type Activity Date Activity User E-sign Co-sign Detail Recorded Client Recorded Date Recorded By Document 08/14/22 11:46 ROBBIN [id number] 08/14/22 11:47 PL 08/14/22 11:46 - Today's Visit Information Type of service Follow-up Visit (Physician/FOUNDER PRESIDENT AND CEO ) Arrival Mode Ambulatory Transfer Assistance None Patient Identification Verified (Name & Yes ) Patient Requires Transmission-Based No Precautions Safety Precautions NA Vital Signs Temperature (97.8 F-99.1 F) 97.8 F Temperature Source Temporal Pulse Rate (60-100) 90 Respiratory Rate (12-18) 18 Blood Pressure (90/60-120/80) 125/78 H Blood Pressure Mean (mm Hg) 93 History Since Last Visit- (Skip if this is Patient's initial visit) Have you changed medications since your No last visit? Any new allergies or adverse reactions No Had a fall/change in ADL's that may No increase risk of falls Signs or symptoms of abuse and/or No neglect since last visit Have you been in the hospital since your No last visit? Has dressing in place as prescribed Yes Has compression in place as prescribed Yes Has offloadiing in place as prescribed N/A Experienced any changes in pain level or No management Pain Scale: 0-10 Numeric Is Patient Pain Free? Yes - Nurse 2 - General Ulcer CM Notes Start: 08/14/22 11:45 Freq: Status: Active Protocol: Activity Type Activity Date Activity User E-sign Co-sign Detail Recorded Client Recorded Date Recorded By Document 08/14/22 12:20 ROBBIN [id number] 08/14/22 12:20 08/14/22 12:20 Wound Center Nurse 2 #2- L MEDIAL VALENTIN -Time 11:55 -Correct Patient Yes -Correct Side, Site, Position Yes -Correct Procedure Yes -Procedure Performed Yes -Type of Procedure Debridement -Clinical Debridement Subcutaneous -Tissue Removed Subcutaneous -Post Debridement (cm) - Length 0.5 -Post Debridement (cm) - Width 0.6 -Post Debridement (cm) - Depth 1.5 -Total Square (Post) (cm) 0.30 -Area of Debridement (cm) - Length 0.5 -Area of Debridement (cm) - Width 0.6 -Total Square (Area) (cm) 0.30 -Tunneling No -Undermining/Tunneling No -Circular Undermining No -Wound/Ulcer Outcome Not Healed -Ulcer Cleansing Rinsed/ Irrigated with Saline -Foul Odor after Cleansing No -Bioengineered Tissue No -Bleeding Controlled with Pressure -Treatment Response Procedure Tolerated Well -Debridement - Subq, 1st 20sq cm Yes Pain Scale: 0-10 Numeric Is Patient Pain Free? Yes - Nurse 3 - General Ulcer D/C NN Start: 08/14/22 11:45 Freq: Status: Active Protocol: Activity Type Activity Date Activity User E-sign Co-sign Detail Recorded Client Recorded Date Recorded By Document 08/14/22 12:20 PL [id number] 08/14/22 12:22 PL 08/14/22 12:20 Wound Care Center Nurse 3 #2- L MEDIAL VALENTIN -Ulcer Cleansing Rinsed/ Irrigated with Saline -Foul Odor after Cleansing No -Primary Dressing Applied Mepilex Border -Other Dressing Promogran -Mepilex Border 2 Pain Scale: 0-10 Numeric Is Patient Pain Free? Yes WC - Visit Discharge Discharge Condition Stable Ambulatory Status Ambulatory Transportation Private Auto Assessment/Plan Assessment/Plan (1) Non-pressure chronic ulcer of left lower leg with fat layer exposed: CODE(S): L97.922 - Non-pressure chronic ulcer of unspecified part of left lower leg with fat layer exposed PLAN: Plan XR of the area had not revealed any radiopaque foreign objects or signs of osteomyelitis. Performed a more extensive debridement last week tried to open the tunnel for easier packing. Did not reveal any foreign body/retained suture in the area debrided last week, though was not able to excise as much tissue or get good visualization due to amount of bleeding. This week, has healed back down to about the original size and tunnel remains stable in depth. Will refer to Dr. Tavarez for his evaluation and recommendation. I think patient may benefit from having the wound/track opened up to either ensure no foreign body/suture perpetuating wound and/or to allow for adequate packing of the track. Will appreciate his input. Continue to apply moistened Promogran to the wound bed and try to pack the centr al tracking. Cover with Kerlix. Continue with compression stockings. Advised patient to elevate his legs frequently throughout the day and avoid prolonged sitting or standing possible. Patient will return to clinic in 1 week.
[2022-08-20 14:12] VITALS: BP 98/65; PULSE 103; RESP 16; TEMP 36.2
--- NOTE | 2022-08-21 12:37 | PCM.WC.HP ---
History of Present Illness Date of Service: 08/20/22 Chief Complaint: Nonhealing ulcer left anteromedial lower leg. History of Wound: 76-year-old male presented to the wound care center for treatment of a recurrent ulcer left anteromedial lower leg. He is well known to me as I treated him here for this ulcer prior and he was in fact just discharged 3 weeks ago. He reports that over the last couple of days he has noticed a blood blister form and then when he was showering it opened up and began to drain. He does not recall any injury to the area. 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 He reports that this wound is in about the same area as a prior retained suture from this vein harvesting. He says that about 6 months ago the visible portion of that retained suture was ultimately removed and the associated small wound initially healed over but has since been recurrent. Last November, he had right lower extremity cellulitis and associated sepsis. Last December he had a small posterior left calf wound for which he followed at the wound care center. He has atrial fibrillation and is on Eliquis. He wears compression stockings. He had a left tib-fib x-ray on 07/22/22. It showed intact total knee arthroplasty and mild degenerative changes of the ankle with soft tissue swelling. He has venous insufficiency with ulceration. Had Venous Doppler study on 07/22/22. It showed no evidence of bilateral lower extremity deep vein thrombosis. Positive for reflux in the right below knee great saphenous vein, small saphenous vein. Positive for reflux in the left small saphenous vein. Today he denies fever. His appetite is good. Progress of Wound: minimal improvement. [facility] Medical History (Updated 09/01/22 @ 09:[address] Fabricio Tavarez MD) Anemia Anxiety Atherosclerosis of coronary artery of redding heart without angina pectoris Atrial fibrillation Atrial fibrillation Brantley's esophagus with esophagitis Bleeding tendency CAD (coronary artery disease) Cancer Chest pain Chronic anticoagulation Chronic depression Chronic kidney disease, stage 3 Chronic kidney disease, stage III (moderate) CPAP (continuous positive airway pressure) dependence Depression Essential hypertension GERD (gastroesophageal reflux disease) Hearing deficit Hearing loss, left Hearing loss, right Hiatal hernia High cholesterol History of left heart catheterization (LHC) (~05/20/21) History of septic shock (04/02/16) History of stress test Hyperlipidemia Hypothyroidism Iron deficiency anemia Kidney disease Left leg swelling Lipodermatosclerosis Non-smoker Obesity (BMI 35.0-39.9 without comorbidity) Obstructive sleep apnea Right leg swelling Sleep apnea Sleep apnea TIA (transient ischemic attack) Ulcer Ulcer of left calf Home Medications apixaban 5 mg tablet (Eliquis) 5 mg PO BID blood thinner 11/07/18 [History Last Taken 06/02/21] atorvastatin 40 mg tablet 40 mg PO QHS cholesterol 11/07/18 [History Last Taken Unknown] pantoprazole 40 mg tablet,delayed release 40 mg PO DAILY gerd 11/07/18 [History Last Taken 09/10/20] trospium 20 mg tablet 20 mg PO BID bladder 07/18/19 [History Last Taken 12/03/20] carboxymethylcellulose sodium 1 % eye liquid gel drops 1 drp RIGHT EYE DAILY dry eyes 06/02/21 [History Last Taken Unknown] prednisolone acetate 1 % eye drops,suspension 1 drp LEFT EYE TID eye drops 06/02/21 [History Last Taken Unknown] acetaminophen 500 mg tablet 1,000 mg PO Q6H PRN pain 07/22/21 [History Last Taken Unknown] aspirin 81 mg tablet,delayed release (Adult Low Dose Aspirin) 81 mg PO DAILY antiplatelet 07/22/21 [History Last Taken 11/29/21] cyanocobalamin (vitamin B-12) 1,000 mcg tablet 1,000 mcg PO DAILY vitamin 07/22/21 [History Last Taken Unknown] potassium klor-con 20 meq PO DAILY potassium replacement 08/26/21 [History Last Taken Unknown] levothyroxine 25 mcg tablet 25 mcg PO DAILY thyroid 09/15/21 [History Last Taken Unknown] fluoxetine 20 mg capsule 40 mg PO DAILY mental health 11/30/21 [History Last Taken Unknown] metoprolol tartrate 50 mg tablet 50 mg PO BID heart 11/30/21 [History Last Taken Unknown] furosemide 40 mg tablet (Lasix) 60 mg PO DAILY 12/16/21 [History Last Taken Unknown] obistadb-tw-trqyo 300 mcg-K 60 mcg-lycop 600 mcg-lutein 300 mcg tablet (Centrum Silver Men) 1 tab PO DAILY 12/16/21 [History Last Taken Unknown] nitroglycerin 0.4 mg sublingual tablet 0.4 mg sublingual Q5M PRN Chest Pain #25 tabs 04/02/22 [Rx Last Taken Unknown] ascorbic acid (vitamin C) 250 mg tablet (Vitamin C) 250 mg PO DAILY 05/22/22 [History Last Taken Unknown] magnesium oxide 420 mg tablet 420 mg PO DAILY 05/22/22 [History Last Taken Unknown] ondansetron HCl 4 mg tablet 4 mg PO Q8H PRN nausea and vomiting #14 tabs 08/29/22 [Rx Last Taken Unknown] promethazine 25 mg tablet 25 mg PO TID PRN nausea and vomiting #14 tabs 08/29/22 [Rx Last Taken Unknown] Allergy/AdvReac Type Severity Reaction Status Date / Time No Known Allergies Allergy Verified 09/01/22 10:03 Family History Father Cancer Lung Mother Heart disease Brother Heart disease CVA (cerebral vascular accident) Brother Heart disease Brother Heart disease Surgical History H/O cardiac catheterization History of appendectomy History of bilateral knee replacement History of coronary artery bypass graft x 3 (~05/27/21) History of coronary artery stent placement History of total left knee replacement History of total right knee replacement Hx of CABG Stented coronary artery (04/14/07) Social History household members: spouse housing: apartment pets and animals: No Smoking Status: Never smoker alcohol intake: never substance use type: does not use caffeine: Yes Type: carbonated beverages Number of servings: 1 ROS ROS Narrative REVIEW OF SYSTEMS General - Denies fever, fatigue, and weight loss. Eyes - Denies cataracts and glaucoma. ENT - Denies nasal congestion and sore throat. Endocrine - Denies excessive thirst and urination. Skin - Denies suspicious lesions and skin cancer. Musculoskeletal - Denies joint pain, joint stiffness, weakness of muscles and joints, back pain, and arthritis. Neuro - Denies headaches. Cardiovascular - Denies chest pain, fatigue, and shortness of breath with exertion. Psych - Denies anxiety and depression. Respiratory - Denies chronic cough and shortness of breath. Gastrointestinal - Denies nausea, vomiting, diarrhea, and constipation. Hematologic - Denies abnormal bruising and bleeding. Genitourinary - Denies hematuria and urinary frequency. Vital Signs Vital Signs Vital Signs: 08/20/22 14:12 Temperature 97.1 F L Temperature Source Temporal Pulse Rate 103 H Respiratory Rate 16 Blood Pressure 98/65 Blood Pressure Mean 76 Blood Pressure Source Monitor Blood Pressure Position Sitting Blood Pressure Location Right Arm Oxygen Delivery Method Room Air Physical Exam Narrative PHYSICAL EXAMINATION General - Alert and Oriented HEENT - PERRL. EOMI. Throat is clear. Neck - Supple and nontender. No cervical adenopathy. Lungs - Clear to auscultation. Heart - Regular rate and rhythm. Abdomen - Soft and nondistended. Extremities - FROM. No axillary adenopathy. Radial pulses are palpable. No inguinal adenopathy. Dorsalis pedis pulses are palpable. Has a nonhealing ulcer left anterior lower leg. Measures 0.6 x 0.6 cm. Has superior undermining about 1.5 cm. Some tenderness to palpation. No evidence of cellulitis, fluctuance, or purulent drainage. Brawny discoloration of lower extremities indicative of lipodermatosclerosis. Neuro - CN II-XII grossly intact. Psych - Normal mood and affect. Debridement Note Debridement Note Wound debrided: #2 Left anteromedial lower leg. Laterality: Left Wound Grade/Stage: 2. Type of Debridement: Excisional debridement Anesthesia Used: 5% Lidocaine Gel Depth: Down to and including healthy tissue and in the subcutaneous layer Percentage of wound debrided: 100 Instrument Used: 3mm curette Tissue Removed: subcutaneous tissue. Severity: Fat Layer Exposed Amount of bleeding with debridement: Mild Bleeding Controlled with: Pressure and Compression and gauze Patient tolerated procedure: Patient tolerated procedure well Debridement Free Text: A wound culture was obtained today. 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 ) Type of service (Other) surgery consult Arrival Mode Ambulatory Ambulatory Transfer Assistance None Patient Identification Verified (Name & Yes Yes ) Patient Requires Transmission-Based No No Precautions Safety Precautions NA NA Vital Signs Temperature (97.8 F-99.1 F) 97.8 F 97.1 F L Temperature Source Temporal Temporal Pulse Rate (60-100) 90 103 H Pulse Location Monitor Respiratory Rate (12-18) 18 16 Respiratory rate source Observation Oxygen Delivery Method Room Air Blood Pressure (90/60-120/80) 125/78 H 98/65 Blood Pressure Mean 93 76 Source Monitor Position Sitting Blood Pressure Location Right Arm History Since Last Visit- (Skip if this is Patient's initial visit) Have you changed medications since your No No last visit? Any new allergies or adverse reactions No No Had a fall/change in ADL's that may No No increase risk of falls Signs or symptoms of abuse and/or No No neglect since last visit Have you been in the hospital since your No No last visit? Has dressing in place as prescribed Yes Yes Has compression in place as prescribed Yes Yes Has offloadiing in place as prescribed N/A Experienced any changes in pain level or No management Left Footwear Regular Shoe Right Footwear Regular Shoe Pain Scale: 0-10 Numeric Is Patient Pain Free? Yes Yes WC - Nurse 1 - General Ulcer Measurement Start: 08/14/22 11:45 Freq: Status: Active Protocol: Activity Type Activity Date Activity User E-sign Co-sign Detail Recorded Client Recorded Date Recorded By Document 08/20/22 14:12 KW [id number] 08/20/22 14:24 KW 08/20/22 14:12 Wound Center Nurse 1 #2- L MEDIAL VASQUES -Current Size (cm) - Length 0.7 -Current Size (cm) - Width 0.5 -Current Size (cm) - Depth 0.3 -Total Square Cm 0.35 -Date of Last Picture (Recall this 08/20/22 field) -Photo Taken Yes -Tunneling No -Undermining/Tunneling No -Circular Undermining No -Exudate Amt Small -Exudate Type Serosanguineous -Wound Margin Distinct, Outline Attached -Granulation Amt Small (1-33%) -Granulation Quality Red -Necrosis Amt Small (1-33%) -Texture (Floridalma-wound Skin Appearance) Assessed -Moisture (Floridalma-wound Skin Appearance) Assessed -Color (Floridalma-wound Skin Appearance) Assessed -Temperature ([place]idalma-wound Skin No Abnormality Appearance) (Pt Warm) -Ulcer Cleansing Rinsed/ Irrigated with Saline -Anesthetic Used 5% Lidocaine Gel Left Calf (cm) 41.2 Left Ankle (cm) 27 - Nurse 2 - General Ulcer CM Notes Start: 08/14/22 11:45 Freq: Status: Active Protocol: Activity Type Activity Date Activity User E-sign Co-sign Detail Recorded Client Recorded Date Recorded By Document 08/14/22 12:20 ROBBIN [id number] 08/14/22 12:20 ROBBIN Document 08/20/22 14:29 [id number] 08/20/22 14:43 JF 08/14/22 08/20/22 12:20 14:29 Wound Center Nurse 2 #2- L MEDIAL VASQUES -Time 11:55 14:29 -Correct Patient Yes Yes -Correct Side, Site, Position Yes Yes -Correct Procedure Yes Yes -Procedure Performed Yes Yes -Type of Procedure Debridement Debridement -Clinical Debridement Subcutaneous Subcutaneous -Tissue Removed Subcutaneous Subcutaneous -Post Debridement (cm) - Length 0.5 0.6 -Post Debridement (cm) - Width 0.6 0.6 -Post Debridement (cm) - Depth 1.5 0.4 -Total Square (Post) (cm) 0.30 0.36 -Area of Debridement (cm) - Length 0.5 0.6 -Area of Debridement (cm) - Width 0.6 0.6 -Total Square (Area) (cm) 0.30 0.36 -Tunneling No No -Undermining/Tunneling No No -Circular Undermining No No -Wound/Ulcer Outcome Not Healed Not Healed -Ulcer Cleansing Rinsed/ Rinsed/ Irrigated with Irrigated with Saline Saline -Foul Odor after Cleansing No No -Bioengineered Tissue No No -Bleeding Controlled with Pressure Pressure -Treatment Response Procedure Procedure Tolerated Well Tolerated Well -Offloading No -Debridement - Subq, 1st 20sq cm Yes Yes Pain Scale: 0-10 Numeric Is Patient Pain Free? Yes Yes - Nurse 3 - General Ulcer D/C NN Start: 08/14/22 11:45 Freq: Status: Active Protocol: Activity Type Activity Date Activity User E-sign Co-sign Detail Recorded Client Recorded Date Recorded By Document 08/14/22 12:20 ROBBIN [id number] 08/14/22 12:22 PL Document 08/20/22 14:50 KW [id number] 08/20/22 14:50 KW 08/14/22 08/20/22 12:20 14:50 Wound Care Center Nurse 3 #2- L MEDIAL VASQUES -Ulcer Cleansing Rinsed/ Rinsed/ Irrigated with Irrigated with Saline Saline -Foul Odor after Cleansing No -Primary Dressing Applied Mepilex Border -Other Dressing Promogran -Primary Dressing Covered/Secured with Dry Gauze, Secured with Tape -Mepilex Border 2 Pain Scale: 0-10 Numeric Is Patient Pain Free? Yes Yes WC - Visit Discharge Discharge Condition Stable Stable Ambulatory Status Ambulatory Ambulatory Transportation Private Auto Private Auto Medication Reconcilliation completed & No provided to patient/care provider Clinical Summary of Care Provided Yes Medical Records Data Attestation: I reviewed the patient's medical records Lab / Micro Data Attestation: I reviewed the patient's lab results. Charges/Coding Visit Charges Office Visits / Consults: 30628 OV L4 New (25 Modifier) Procedures Integumentary 111xxx-113xx: [id number] Hien subq tissue 20 sq cm/< (ICD-10 - L97.922, I87.2, M79.89, I83.12, Z79.01) Assessment/Plan Assessment/Plan (1) Non-pressure chronic ulcer of left lower leg with fat layer exposed: CODE(S): L97.922 - Non-pressure chronic ulcer of unspecified part of left lower leg with fat layer exposed PLAN: Left anteromedial lower leg (2) Chronic venous insufficiency of lower extremity: CODE(S): I87.2 - Venous insufficiency (chronic) (peripheral) (3) Lipodermatosclerosis of left lower extremity: CODE(S): I83.12 - Varicose veins of left lower extremity with inflammation (4) Left leg swelling: CODE(S): M79.89 - Other specified soft tissue disorders (5) Chronic anticoagulation: 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 Labs and x-rays and vascular studies reviewed. Patient has nonhealing ulcer left anteromedial leg with some undermining superiorly. Attempts were made to unroof it here at the Wound Center. It was difficult because of the risk of bleeding secondary to being on Eliquis for atrial fibrillation. He has venous insufficiency which can lead to ulceration especially with history of swelling of the left leg. With surrounding lipodermatosclerosis, debridement is difficult at the Wound Center secondary to pain and bleeding. I was asked to evaluate this patient for surgical options for treatment. Today he denies fever. His appetite is good. Continue Promogran for wound care. Compression is paramount to keep the swelling under control. Chronic swelling can aggravate the venous insufficiency leading to ulceration and surrounding brawny discoloration (lipodermatosclerosis). Chronic pain can be an issue making debridement at the Wound Center under topical Lidocaine problematic. Periodic maintenance operative debridements is necessary to heal this ulcer. After the operative debridement, wound care will be with the VAC. Surgery will be under general anesthesia with a surgical observation overnight stay in the hospital. After 4-6 weeks the VAC may be changed to daily Silver dressing changes. If there is a plateau in the healing process, can proceed with delayed closure and skin grafting. Would like to repeat the Noninvasive Arterial Doppler study. It has been at least a couple of years since his last one. Patient cannot remember exactly. I want to make sure the blood flow is adequate to heal the ulcer with a skin graft. Also a 3M two layer wrap can then be used to help with the localized swelling which improves the healing of the ulcer. A wound culture was obtained today. A positive culture will necessitate antibiotic therapy. Anticipate increased metabolic demands from this chronic ulceration. Will check a Prealbumin and encourage nutritional supplementation with protein to help the healing process. To help with the swelling in the meantime, will wear compression stockings (over the counter). Patient was informed of the risks and complications of the procedure including alternatives to surgery. These were discussed with the patient personally. Patient voices understanding and wishes to proceed. Potential risks and complications included but not inclusive of bleeding, infection, seroma, hematoma, bruising, swelling loss of sensation to skin, wound breakdown, need for wound care, poor scarring, poor aesthetic outcome, intra operative cardiac or neurologic events, DVT, PE, and reaction to anesthesia. Followup 1 week.
--- NOTE | 2022-08-24 13:51 | ART_ITS ---
Reason For Study: LLE ULCER, EDEMA,PAD Procedure A bilateral lower extremity continuous wave Doppler with analog waveform analysis,segmental pressures,and ankle brachial indexes without exercise. Left Segmental Pressures Left brachial= 111mmHg. Left thigh = 150mmHg. Left calf = 150mmHg. Left posterior tibial artery = >254mmHg. Left dorsalis pedis artery = >254mmHg. Left digit = 120 mmHg. The left posterior tibial artery waveforms are triphasic. The left dorsalis pedis waveforms are triphasic. Right Segmental Pressures Right brachial= 103mmHg. Right thigh = 146mmHg. Right calf = 123mmHg. Right posterior tibial artery = 99mmHg. Right dorsalis pedis artery = 102mmHg. Right digit = 73 mmHg. The right posterior tibial artery waveforms are biphasic. The right dorsalis pedis waveforms are triphasic. Indices The right resting ankle brachial index is 0.92. The right ankle brachial index by the posterior tibial artery is 0.89. The right ankle brachial index by the dorsalis pedis is 0.92. The right digital-brachial index is 0.66. The left resting ankle brachial index is -NC-. The left ankle brachial index by the posterior tibial artery is -NC-. The left ankle brachial index by the dorsalis pedis is -NC-. The left digital-brachial index is 1.08. VL/Lower Ext Art Exam w/o Exercis Interpretation Summary Triphasic and biphasic Doppler waveforms are noted at ankle level on the right. Triphasic Doppler waveforms are noted at ankle level on the left. Pulse-volume recordings are dim inished at digital level on the right, but satisfactory at all other levels bilaterally. The resti ng right ankle- brachial index is minimally diminished. The resting left ankle-brachial index c ould not be determined due to the non-compressibility of the vasculature at ankle level on the left. The right digital-brachial index is mildly diminished. The left digital-brachial index is normal. There is minimal arterial occlusive disease at ankle level on the right. There is mild arterial occlusive disease at digital level on the right. There is evidence of arterial calcification at ankle level on the left. There is no evidence of significant arterial occlusive disease in the left lower extremity. Ordering Physician: Fabricio Tavarez Referring Physician: Wilbert Pradhan Chi Performed By: Ara Malcolm RVT, [facility]
== END 2022-09-07 23:59 | disposition home or self-care (01) ==
LOC: WC 14:00
PROVIDERS: PCP Family Medicine Geriatric Medicine; Referring Provider Family Medicine Geriatric Medicine; Visit Provider Surgery
DX: I83.222 Varicose veins of left lower extremity with both ulcer of calf and inflammation (principal); L97.222 Non-pressure chronic ulcer of left calf with fat layer exposed; I48.91 Unspecified atrial fibrillation; N18.30 Chronic kidney disease, stage 3 unspecified; K21.9 Gastro-esophageal reflux disease without esophagitis; E78.00 Pure hypercholesterolemia, unspecified; Z96.659 Presence of unspecified artificial knee joint; Z79.01 Long term (current) use of anticoagulants; R60.0 Localized edema; I25.10 Atherosclerotic heart disease of native coronary artery without angina pectoris; I12.9 Hypertensive chronic kidney disease with stage 1 through stage 4 chronic kidney disease, or unspecified chronic kidney disease
CPT/HCPCS: 11042; 87070; 87075; 87077; 87186; 87205; 93923

== ENCOUNTER 2022-08-29 09:30 | Emergency (ER) | payer MEDICARE, OTHER, SELFPAY ==
[2021-09-17 08:31] VITALS: BMI 38.4
[2022-08-29 09:32] VITALS: BP 177/112; PULSE 91; RESP 18; TEMP 35.8; O2SAT 100; BMI 72.9
[2022-08-29 09:42] VITALS: BP 177/112; PULSE 87; RESP 20; O2SAT 98
--- NOTE | 2022-08-29 10:14 | EKG12_ITS ---
Test Reason : GENERAL Blood Pressure : / mmHG Vent. Rate : 092 BPM Atrial Rate : 000 BPM P-R Int : 000 ms QRS Dur : 092 ms QT Int : 390 ms P-R-T Axes : 000 023 064 degrees QTc Int : 482 ms Atrial fibrillation Prolonged QT Abnormal ECG Confirmed by HUGH CHAUDHARY, KENDELL ([id number]), supervising film or videotape editor ANISH SMITH ([id number]) on 08/31/2022 12:38:17 PM Referred By: LYNNE Confirmed By:KENDELL REESE MD
--- NOTE | 2022-08-29 10:14 | RAD_ITS ---
INDICATION: chest pain EXAMINATION/TECHNIQUE: X-RAY - XR Chest 1 View COMPARISON: 11/30/2021. FINDINGS: LINES/DEVICES: Telemetry wires overlying the chest. LUNGS: No consolidation, edema or effusion. No pneumothorax. MEDIASTINUM AND CARDIOVASCULAR STRUCTURES: Status post CABG. Atrial appendage clip is again seen. The cardiac silhouette is within normal limits. Tortuosity of the thoracic aorta.. BONES AND SOFT TISSUES: Stable soft tissues and osseous structures. RAD/Chest 1 View (Portable) IMPRESSION: No radiographic evidence of acute cardiopulmonary disease. Electronically Signed: Ace Yang MD at 11:00 EDT ,
[2022-08-29 10:23] LABS: Absolute Lymphocyte Count 0.87 X10^3/uL (0.83-4.51); Absolute Neutrophil Count 7.2 X10^3/uL (2.0-7.7); Basophil# 0.04 X10^3/uL; Basophil% 0.5 % (0-1); Eosinophils% 1.1 % (0-5); Hematocrit 47.6 % (40-54); Hemoglobin 16.2 g/dL (13.0-16.5); Lymphocyte # 0.87 X10^3/ul (0.83-4.51); Lymphocyte % 9.9 % (19-41); Mean Corpuscular Hgb 31.9 pg (27.0-32.0); Mean Corpuscular Volume 93.7 fL (80-94); Mean Platelet Vol. 9.5 fl (6.2-12.0); Monocyte# 0.58 X10^3/uL; Monocyte% 6.6 % (0-10); NRBC Flagged by Analyzer 0 % (0-5); Neutrophil # 7.18 X10^3/uL (2.7-7.7); Neutrophil % 81.3 % (47-70); Platelet Count 144 K/mm3 (150-450); RBC Distribution Width CV 14.6 % (11.6-14.6); RBC Distribution Width SD 50.8 fl (35.1-43.9); Red Blood Count 5.08 M/mm3 (4.6-6.2); White Blood Count 8.8 K/mm3 (4.4-11.0)
[2022-08-29] MEDS: Ondansetron 4 MG/2 ML Vial IV (10:40)
[2022-08-29 10:42] VITALS: BP 157/102; PULSE 89; RESP 16; O2SAT 98
[2022-08-29 10:46] LABS: Anion Gap 9 (5-15); BUN 34 mg/dL (7-18); Calcium,Total 9.9 mg/dL (8.5-10.1); Chloride 105 mmol/L (98-107); EST Glomerular Filtration Rate 42 mL/min (>60); Est Glom Filt Rate - Afr Amer 50 mL/min (>60); Estimated Creatinine Clearance 38.14 ml/min; Glucose 145 mg/dL (74-106); Sodium Level 141 mmol/L (136-145); Troponin-I HS (w/2H Reflex) 16 pg/mL (3.0-78.0)
--- NOTE | 2022-08-29 10:52 | EDS_ITS ---
HPI History of Present Illness Chief Complaint: Edema Narrative Narrative: 77-year-old male presenting with nausea and vomiting. He states that he also had the runs this morning.He states he started having this at about 3:30 AM to 4 AM this morning. He states he is mostly been dry heaving. He denies black or bloody stool or emesis. He does state that he has abdominal pain somewhere around his umbilicus or above but he states it feels like he has missed a meal. He stated most of the dull ache. No chest pain. He does state that his lower extremities are edematous. He states he had this in the past. He is on Lasix. Patient has history of A-fib on Eliquis. [facility] Medical History Atherosclerosis of coronary artery of [place] heart without angina pectoris Atrial fibrillation Brantley's esophagus with esophagitis CAD (coronary artery disease) Chronic anticoagulation Chronic depression Chronic kidney disease, stage 3 Chronic kidney disease, stage III (moderate) Depression Essential hypertension GERD (gastroesophageal reflux disease) Hearing deficit History of left heart catheterization (LHC) (~05/20/21) History of septic shock (04/02/16) Hyperlipidemia Hypothyroidism Iron deficiency anemia Left leg swelling Lipodermatosclerosis Obesity (BMI 35.0-39.9 without comorbidity) Obstructive sleep apnea Right leg swelling Sleep apnea Ulcer of left calf Home Medications apixaban 5 mg tablet (Eliquis) 5 mg PO BID blood thinner 11/07/18 [History Last Taken 06/02/21] atorvastatin 40 mg tablet 40 mg PO QHS cholesterol 11/07/18 [History Last Taken Unknown] pantoprazole 40 mg tablet,delayed release 40 mg PO DAILY gerd 11/07/18 [History Last Taken 09/10/20] trospium 20 mg tablet 20 mg PO BID bladder 07/18/19 [History Last Taken 12/03/20] carboxymethylcellulose sodium 1 % eye liquid gel drops 1 drp RIGHT EYE DAILY dry eyes 06/02/21 [History Last Taken Unknown] prednisolone acetate 1 % eye drops,suspension 1 drp LEFT EYE TID eye drops 06/02/21 [History Last Taken Unknown] acetaminophen 500 mg tablet 1,000 mg PO Q6H PRN pain 07/22/21 [History Last Taken Unknown] aspirin 81 mg tablet,delayed release (Adult Low Dose Aspirin) 81 mg PO DAILY antiplatelet 07/22/21 [History Last Taken 11/29/21] cyanocobalamin (vitamin B-12) 1,000 mcg tablet 1,000 mcg PO DAILY vitamin 07/22/21 [History Last Taken Unknown] potassium klor-con 20 meq PO DAILY potassium replacement 08/26/21 [History Last Taken Unknown] levothyroxine 25 mcg tablet 25 mcg PO DAILY thyroid 09/15/21 [History Last Taken Unknown] fluoxetine 20 mg capsule 40 mg PO DAILY mental health 11/30/21 [History Last Taken Unknown] metoprolol tartrate 50 mg tablet 50 mg PO BID heart 11/30/21 [History Last Taken Unknown] furosemide 40 mg tablet (Lasix) 60 mg PO DAILY 12/16/21 [History Last Taken Unknown] lvhitdrd-kk-aefqm 300 mcg-K 60 mcg-lycop 600 mcg-lutein 300 mcg tablet (Centrum Silver Men) 1 tab PO DAILY 12/16/21 [History Last Taken Unknown] nitroglycerin 0.4 mg sublingual tablet 0.4 mg sublingual Q5M PRN Chest Pain #25 tabs 04/02/22 [Rx Last Taken Unknown] ascorbic acid (vitamin C) 250 mg tablet (Vitamin C) 250 mg PO DAILY 05/22/22 [History Last Taken Unknown] magnesium oxide 420 mg tablet 420 mg PO DAILY 05/22/22 [History Last Taken Unknown] ondansetron HCl 4 mg tablet 4 mg PO Q8H PRN nausea and vomiting #14 tabs 08/29/22 [Rx Last Taken Unknown] promethazine 25 mg tablet 25 mg PO TID PRN nausea and vomiting #14 tabs 08/29/22 [Rx Last Taken Unknown] Allergy/AdvReac Type Severity Reaction Status Date / Time No Known Allergies Allergy Verified 08/29/22 09:42 Family History Father Cancer Lung Mother Heart disease Brother Heart disease CVA (cerebral vascular accident) Brother Heart disease Brother Heart disease Surgical History History of bilateral knee replacement History of coronary artery bypass graft x 3 (~05/27/21) History of total left knee replacement History of total right knee replacement Stented coronary artery (04/14/07) Social History household members: spouse housing: apartment pets and animals: No Smoking Status: Never smoker alcohol intake: never substance use type: does not use caffeine: Yes Type: carbonated beverages Number of servings: 1 ROS ROS ED Constitutional Constitutional ED: Denies chills or fever(s) Eyes Eyes: Denies change in vision or diplopia ENT ENT ED: Denies rhinorrhea or sore throat Cardiovascular Cardiovascular: Denies chest pain or palpitations Respiratory/Chest Respiratory/Chest: Reports dyspnea; Denies cough Gastrointestinal Gastrointestinal: Reports abdominal pain, diarrhea, nausea and vomiting Genitourinary Genitourinary ED: Denies dysuria or hematuria Musculoskeletal Musculoskeletal: Denies arthralgias Integumentary Denies abscess Neurologic Neurologic: Denies headache(s) or paresthesias EXAM Physical Exam Const Vital Signs: 08/29/22 09:32 08/29/22 09:37 08/29/22 09:42 Temperature 96.4 F L Temperature Source Temporal Pulse Rate 91 87 Respiratory Rate 18 20 H Respiratory Pattern Normal Blood Pressure 177/112 H 177/112 H Blood Pressure Mean 133 133 Pulse Ox 100 98 Oxygen Delivery Method Room Air Room Air 08/29/22 10:41 08/29/22 10:42 08/29/22 12:29 Temperature Temperature Source Pulse Rate 89 103 H Respiratory Rate 16 24 H Respiratory Pattern Blood Pressure 157/102 H 156/111 H Blood Pressure Mean 120 126 Pulse Ox 98 99 Oxygen Delivery Method Room Air Room Air Room Air 08/29/22 14:29 Temperature Temperature Source Pulse Rate 90 Respiratory Rate 18 Respiratory Pattern Blood Pressure 150/94 H Blood Pressure Mean 112 Pulse Ox 100 Oxygen Delivery Method Room Air Positive well nourished General Appearance ED: NAD; Negative for pallor HEENT Reports moist mucous membranes Eyes PERRL and EOMs intact bilaterally Chest Wall inspection of chest normal Resp normal respiratory effort and clear to auscultation bilaterally Auscultation: Negative for rales, rhonchi or wheezes Cardio regular rate and regular rhythm GI normal to inspection, nondistended, normoactive bowel sounds Back/Spine no CVA tenderness Neuro oriented x3 and CN's II-XII intact bilaterally Sensorium / Orientation: alert Psych mental status grossly normal Skin no rashes or lesions noted General Skin Exam: Negative for jaundice or pallor MDM MDM MDM Narrative Medical decision making narrative: 77-year-old male presenting with nausea/vomiting. He does state that he has peripheral edema which is not a new issue but he feels like it may be worsening. Unknown if he had a weight change. Differential includes acute coronary syndrome, CHF, pneumonia, dehydration, anemia, acute kidney injury, electrode abnormalities, pancreatitis. CBC to was obtained to assess white blood cell count, hemoglobin, platelets. CMP to assess liver function, renal function, electrolytes. High-sensitivity troponin EKG to assess for ischemic. BNP to a ssess for heart failure. Lipase to assess for pancreatitis. Chest x-ray to rule out pneumonia. Patient medicated with Zofran. He still had some nausea after this. CBC was unremarkable. CMP shows slight elevation in bilirubin at 1.10. Direct bilirubin 0.38. And his creatinine is near baseline at 1.70. High-sensitivity troponin 16 and 10 at 2 hours. Chest x-ray interpretation shows no acute process. BNP is in the 200s but is near his baseline. Lipase negative. On reevaluation patient still had some nausea so he was given some Phenergan. He is a p.o. challenge after this that he is feeling better. Discussed lab findings and imaging. At this point I feel he stable for discharge home. Recommended follow-up cardiology for his peripheral edema. I gave him prescription for antiemetics for home. Return precautions discussed. Impression: 1. Nausea/vomiting 2. Peripheral edema Lab Data Attestation: I reviewed the patient's lab results. Labs: Laboratory Results - last 24 hr 08/29/22 08/29/22 09:50 12:27 WBC 8.8 RBC 5.08 Hgb 16.2 Hct 47.6 MCV 93.7 MCH 31.9 MCHC 34.0 RDW Std Deviation 50.8 H RDW Coeff of Sylwia 14.6 Plt Count 144 L MPV 9.5 Immature Gran % (Auto) 0.600 Neut % (Auto) 81.3 H Lymph % (Auto) 9.9 L [place] % (Auto) 6.6 Eos % (Auto) 1.1 Baso % (Auto) 0.5 Absolute Neuts (auto) 7.2 Absolute Lymphs (auto) 0.87 Nucleated RBC % 0 Sodium 141 Potassium 4.0 Chloride 105 Carbon Dioxide 27.0 Anion Gap 9 BUN 34 H Creatinine 1.70 H Estim Creat Clear Calc 38.14 Est GFR (MDRD) Af Amer 50 L Est GFR (MDRD) Non-Af 42 L BUN/Creatinine Ratio 20.0 Glucose 145 H Calcium 9.9 Total Bilirubin 1.10 H Direct Bilirubin 0.38 H AST 23 ALT 33 Alkaline Phosphatase 126 H Troponin I High Sens 16 12 B-Natriuretic Peptide 262.8 H Total Protein 7.7 Albumin 4.0 Globulin 3.7 Lipase 36 Radiography Diagnostic Testing: Clinical Impression(s) from Imaging Studies Chest X-Ray 08/29/22 10:14 IMPRESSION: No radiographic evidence of acute cardiopulmonary disease. Electronically Signed: Ace Yang MD at 11:00 EDT , Discharge Plan Triage Chief Complaint: Edema ED Provider: Roverto Hartman Dx/Rx/DC Orders Instructions: ED Diet Vomiting Diarrhea Prescriptions: New promethazine 25 mg tablet 25 mg PO TID PRN (Reason: nausea and vomiting) Qty: 14 0RF ondansetron HCl 4 mg tablet 4 mg PO Q8H PRN (Reason: nausea and vomiting) Qty: 14 0RF No Action pantoprazole 40 mg tablet,delayed release (DR/EC) 40 mg PO DAILY Eliquis 5 mg tablet 5 mg PO BID atorvastatin 40 mg tablet 40 mg PO QHS trospium 20 mg tablet 20 mg PO BID Rx Instructions: administer on an empty stomach levothyroxine 25 mcg tablet 25 mcg PO DAILY potassium klor-con 20 meq PO DAILY acetaminophen 500 mg tablet 1,000 mg PO Q6H PRN (Reason: pain) aspirin [Adult Low Dose Aspirin] 81 mg tablet,delayed release (DR/EC) 81 mg PO DAILY cyanocobalamin (vitamin B-12) 1,000 mcg tablet 1,000 mcg PO DAILY nitroglycerin 0.4 mg tablet, sublingual 0.4 mg sublingual Q5M PRN (Reason: Chest Pain) Qty: 25 3RF Rx Instructions: do not exceed 3 doses per episode prednisolone acetate 1 % Drops,Suspension 1 drp LEFT EYE TID carboxymethylcellulose sodium 1 % Drops, Liquid Gel 1 drp RIGHT EYE DAILY fluoxetine 20 mg capsule 40 mg PO DAILY Patient Comments: TAKE 1 CAPSULE BY MOUTH ONCE DAILY IN THE MORNING FOR 90 DAYS metoprolol tartrate 50 mg tablet 50 mg PO BID Centrum Silver Men 300-600-300 mcg Tablet 1 tab PO DAILY furosemide [Lasix] 40 mg tablet 60 mg PO DAILY magnesium oxide 420 mg Tablet 420 mg PO DAILY ascorbic acid (vitamin C) [Vitamin C] 250 mg Tablet 250 mg PO DAILY Primary Care Provider: Wilbert Pradhan Chi Referrals: Wilbert Pradhan Chi, MD [Primary Care Provider] - Disposition Disposition: Home, Self Care
[2022-08-29 10:53] LABS: BNP,B-Type NATRIURETIC PEPTIDE 262.8 pg/mL (0-100)
[2022-08-29 11:49] LABS: AST(SGOT) 23 U/L (15-37); Alanine Aminotransfer ALT/SGPT 33 U/L (16-61); Alkaline Phosphatase 126 U/L (45-117); Bilirubin, Direct 0.38 mg/dL (0.00-0.30); Globulin 3.7 g/dL (2.2-4.2); Lipase 36 U/L (13-75); Protein, Total 7.7 g/dL (6.4-8.2)
[2022-08-29 12:18] LABS: Reflex Troponin-HS? (from REC) Y
[2022-08-29 12:29] VITALS: BP 156/111; PULSE 103; RESP 24; O2SAT 99
[2022-08-29 12:57] LABS: Troponin-I HS 12 pg/mL (3.0-78.0)
[2022-08-29] MEDS: proMETHazine 25 MG/ML Syringe 12.5 MG IM (14:20)
[2022-08-29 14:29] VITALS: BP 150/94; PULSE 90; RESP 18; O2SAT 100
[2022-08-29 15:42] VITALS: BP 143/79; PULSE 62; RESP 15; O2SAT 98
== END 2022-08-29 15:43 | disposition home or self-care (01) ==
PROVIDERS: Emergency Provider Student in an Organized Health Care Education/Training Program; PCP Family Medicine Geriatric Medicine; Visit Provider Student in an Organized Health Care Education/Training Program
DX: R11.2 Nausea with vomiting, unspecified (principal); I48.91 Unspecified atrial fibrillation; N18.30 Chronic kidney disease, stage 3 unspecified; R60.9 Edema, unspecified; I25.10 Atherosclerotic heart disease of native coronary artery without angina pectoris; G47.30 Sleep apnea, unspecified; Z79.01 Long term (current) use of anticoagulants; Z95.1 Presence of aortocoronary bypass graft; Z95.5 Presence of coronary angioplasty implant and graft
CPT/HCPCS: 96372; 96374; 99285; 71045; 80048; 80076; 83690; 83880; 84484; 85025; 93005; A4216; J2405

== ENCOUNTER 2022-08-31 16:35 | Inpatient (IN) | payer MEDICARE, OTHER, SELFPAY ==
[2021-09-17 08:31] VITALS: BMI 38.4
[2022-08-31] VITALS (9 sets, daily range): BP systolic 97–142; BP diastolic 69–81; PULSE 78–103; RESP 14–24; TEMP 36.1–37.2; O2SAT 95–98; BMI 32.3
--- NOTE | 2022-08-31 17:30 | EKG12_ITS ---
Test Reason : SOB Blood Pressure : / mmHG Vent. Rate : 095 BPM Atrial Rate : 366 BPM P-R Int : 000 ms QRS Dur : 096 ms QT Int : 368 ms P-R-T Axes : 000 007 102 degrees QTc Int : 462 ms Atrial flutter with variable A-V block Possible Inferior infarct , age undetermined Cannot rule out Anterior infarct , age undetermined Abnormal ECG Confirmed by HUGH CHAUDHARY, KENDELL ([id number]), publications editor ANISH SMITH ([id number]) on 09/02/2022 9:28:01 AM Referred By: Benedicto Confirmed By:KENDELL REESE MD
--- NOTE | 2022-08-31 17:30 | CT_ITS ---
INDICATION: nausea, weakness, difficulty with balance EXAMINATION: CT BRAIN - CT Head or Brain W/O Contrast Injection TECHNIQUE: Multiple axial images were obtained of the head without intravenous contrast. A radiation dose optimization technique was used for this scan. IV Contrast dosage and agent: None. RADIATION DOSAGE (If Supplied By Facility): CTDIvol = ( 44.99 ) mGy, DLP = ( 846.73 ) mGycm COMPARISON: 05/13/2021 FINDINGS: BRAIN PARENCHYMA: No intra- or extra-axial hemorrhage. No evidence of acute infarct. No intracranial mass or mass effect. There is preservation of the reyes/white matter interface. Posterior fossa structures are unremarkable. CSF SPACES: Appropriate for age. No hydrocephalus. Basal cisterns are patent. CALVARIUM, SKULL BASE, PARANASAL SINUSES AND MASTOID AIR CELLS: Clear. No discrete lytic or blastic abnormalities. ORBITS: Interval left ocular lens replacement. ASPECTS Score for Acute Strokes: 10 CT/Brain/Head without Contrast IMPRESSION: Negative Brain CT without contrast. Electronically Signed: Shola Bowen MD at 19:55 EDT ,
--- NOTE | 2022-08-31 17:31 | EX.ED.DYSGE1 ---
HPI History of Present Illness Chief Complaint: Weakness Detail of Chief Complaint: Generalized weakness Informant: patient and family Narrative Narrative: Patient presents with generalized weakness times at least 3 days. Patient was seen in the emergency department 3 days ago for nausea and apparently was discharged to home. Family states they lost the paperwork and they were not sure what the diagnosis was. Since that time patient's been having a hard time ambulating and has had increased sleep and decreased p.o. intake. There is concern for possible infectious etiology although he has not had a fever. He has not had cough. Is not had vomiting or diarrhea. Patient did vomit once after going home with 3 days ago but has not vomited since. He denies any falls or head injuries. Patient normally cares for his but is unable to care for himself at this time. Patient denies chest pain. He does have some shortness of breath with activity or exertion. [facility] Medical History (Updated 08/31/22 @ 22:30 by Agnes Pack) Anemia Anxiety Atherosclerosis of coronary artery of [place] heart without angina pectoris Atrial fibrillation Atrial fibrillation Brantley's esophagus with esophagitis Bleeding tendency CAD (coronary artery disease) Cancer Chest pain Chronic anticoagulation Chronic depression Chronic kidney disease, stage 3 Chronic kidney disease, stage III (moderate) CPAP (continuous positive airway pressure) dependence Depression Essential hypertension GERD (gastroesophageal reflux disease) Hearing deficit Hearing loss, left Hearing loss, right Hiatal hernia High cholesterol History of left heart catheterization (LHC) (~05/20/21) History of septic shock (04/02/16) History of stress test Hyperlipidemia Hypothyroidism Iron deficiency anemia Kidney disease Left leg swelling Lipodermatosclerosis Non-smoker Obesity (BMI 35.0-39.9 without comorbidity) Obstructive sleep apnea Right leg swelling Sleep apnea Sleep apnea TIA (transient ischemic attack) Ulcer Ulcer of left calf Home Medications apixaban 5 mg tablet (Eliquis) 5 mg PO BID blood thinner 11/07/18 [History Last Taken 06/02/21] atorvastatin 40 mg tablet 40 mg PO QHS cholesterol 11/07/18 [History Last Taken Unknown] pantoprazole 40 mg tablet,delayed release 40 mg PO DAILY gerd 11/07/18 [History Last Taken 09/10/20] trospium 20 mg tablet 20 mg PO BID bladder 07/18/19 [History Last Taken 12/03/20] carboxymethylcellulose sodium 1 % eye liquid gel drops 1 drp RIGHT EYE DAILY dry eyes 06/02/21 [History Last Taken Unknown] prednisolone acetate 1 % eye drops,suspension 1 drp LEFT EYE TID eye drops 06/02/21 [History Last Taken Unknown] acetaminophen 500 mg tablet 1,000 mg PO Q6H PRN pain 07/22/21 [History Last Taken Unknown] aspirin 81 mg tablet,delayed release (Adult Low Dose Aspirin) 81 mg PO DAILY antiplatelet 07/22/21 [History Last Taken 11/29/21] cyanocobalamin (vitamin B-12) 1,000 mcg tablet 1,000 mcg PO DAILY vitamin 07/22/21 [History Last Taken Unknown] potassium klor-con 20 meq PO DAILY potassium replacement 08/26/21 [History Last Taken Unknown] levothyroxine 25 mcg tablet 25 mcg PO DAILY thyroid 09/15/21 [History Last Taken Unknown] fluoxetine 20 mg capsule 40 mg PO DAILY mental health 11/30/21 [History Last Taken Unknown] metoprolol tartrate 50 mg tablet 50 mg PO BID heart 11/30/21 [History Last Taken Unknown] furosemide 40 mg tablet (Lasix) 60 mg PO DAILY 12/16/21 [History Last Taken Unknown] bmzrxnlq-yb-tewqm 300 mcg-K 60 mcg-lycop 600 mcg-lutein 300 mcg tablet (Centrum Silver Men) 1 tab PO DAILY 12/16/21 [History Last Taken Unknown] nitroglycerin 0.4 mg sublingual tablet 0.4 mg sublingual Q5M PRN Chest Pain #25 tabs 04/02/22 [Rx Last Taken Unknown] ascorbic acid (vitamin C) 250 mg tablet (Vitamin C) 250 mg PO DAILY 05/22/22 [History Last Taken Unknown] magnesium oxide 420 mg tablet 420 mg PO DAILY 05/22/22 [History Last Taken Unknown] ondansetron HCl 4 mg tablet 4 mg PO Q8H PRN nausea and vomiting #14 tabs 08/29/22 [Rx Last Taken Unknown] promethazine 25 mg tablet 25 mg PO TID PRN nausea and vomiting #14 tabs 08/29/22 [Rx Last Taken Unknown] Allergy/AdvReac Type Severity Reaction Status Date / Time No Known Allergies Allergy Verified 08/31/22 16:37 Family History Father Cancer Lung Mother Heart disease Brother Heart disease CVA (cerebral vascular accident) Brother Heart disease Brother Heart disease Surgical History (Updated 08/31/22 @ 22:30 by Agnes Pack) H/O cardiac catheterization History of appendectomy History of bilateral knee replacement History of coronary artery bypass graft x 3 (~05/27/21) History of coronary artery stent placement History of total left knee replacement History of total right knee replacement Hx of CABG Stented coronary artery (04/14/07) Social History household members: spouse housing: apartment pets and animals: No Smoking Status: Never smoker alcohol intake: never substance use type: does not use caffeine: Yes Type: carbonated beverages Number of servings: 1 ROS ROS ED Review of Systems ROS Unobtainable: other Constitutional Constitutional ED: Reports lethargy; Denies chills, fever(s), sweats or weight loss Eyes Eyes: Denies blurry vision, change in vision or diplopia ENT ENT ED: Denies rhinorrhea or sore throat Cardiovascular Cardiovascular: Denies chest pain, orthopnea or racing heartbeat Respiratory/Chest Respiratory/Chest: Reports dyspnea and dyspnea on exertion; Denies cough, orthopnea or sputum Gastrointestinal Gastrointestinal: Denies abdominal pain, diarrhea, nausea or vomiting Genitourinary Genitourinary ED: Denies dysuria, hematuria or urinary frequency Musculoskeletal Musculoskeletal: Denies arthralgias, back pain, myalgias or neck pain Integumentary Denies abscess, Abrasions or rash Neurologic Neurologic: Reports weakness; Denies headache(s) Psychiatric Psychiatric: Denies anxiety, depression or suicidal thoughts Endocrine Endocrinology: Denies polydipsia, polyphagia or polyuria Hematologic/Lymphatic Hematologic/Lymphatic: Denies easy bleeding, easy bruising or lymphadenopathy Allergic/Immunologic Allergic/Immunologic ED: Denies mouth swelling, tongue swelling or urticaria EXAM Physical Exam Const Vital Signs: 08/31/22 16:37 08/31/22 16:59 08/31/22 16:59 Temperature 99 F Temperature Source Temporal Pulse Rate 81 99 Respiratory Rate 14 21 H Respiratory Effort Non-Labored Respiratory Pattern Normal Blood Pressure 97/78 105/79 Blood Pressure Mean 84 87 Pulse Ox 98 96 Oxygen Delivery Method Room Air Room Air 08/31/22 17:35 08/31/22 18:00 08/31/22 21:13 Temperature Temperature Source Pulse Rate 102 H 78 Respiratory Rate 24 H 18 Respiratory Effort Respiratory Pattern Blood Pressure 105/69 142/81 H Blood Pressure Mean 81 101 Pulse Ox 98 Oxygen Delivery Method Room Air 08/31/22 21:00 Temperature Temperature Source Pulse Rate 96 Respiratory Rate 15 Respiratory Effort Respiratory Pattern Blood Pressure 117/74 Blood Pressure Mean 88 Pulse Ox 97 Oxygen Delivery Method Room Air Positive well nourished and well developed General Appearance ED: well developed and NAD HEENT Reports TM's clear and moist mucous membranes normocephalic and atraumatic; Negative for trauma or tenderness Tympanic Membrane ED: Yes TM's clear Eyes PERRL and EOMs intact bilaterally General Eye ED: Negative for pale conjunctiva or scleral icterus Neck no lymphadenopathy, supple and no JVD General: Negative for tenderness Chest Wall inspection of chest normal and palpation of chest normal Chest Narrative: Small area of ecchymosis and bruising to the right anterior chest wall. Chest: Negative for tenderness Resp normal respiratory effort and clear to auscultation bilaterally Effort and Inspection: Negative for respiratory distress or pain with movement Auscultation: Negative for rhonchi, wheezes or diminished lung sounds Cardio regular rate, regular rhythm, S1 normal heart sound, S2 normal heart sound and no murmurs Peripheral Pulses: pulses 2+ throughout GI normal to inspection, nondistended, normoactive bowel sounds, soft to palpation, non-distended and no masses GI Narrative: Tenderness to palpation over the right upper quadrant with guarding and positive Shaikh sign. Back/Spine no CVA tenderness and no thoracic nor lumbar tenderness Extremity normal to inspection Extremity Narrative: +1 edema both lower extremities without evidence of cellulitic changes. General Extremety ED: Negative for edema General Extremity: Negative for edema Neuro oriented x3, CN's II-XII intact bilaterally, no sensory deficits noted and gait normal Sensorium / Orientation: awake, alert, oriented to person, oriented to place and oriented to time Motor Exam: strength 5/5 throughout and strength abnormal Psych mental status grossly normal Skin no rashes or lesions noted and no wounds MDM MDM MDM Narrative Medical decision making narrative: Patient presents with generalized weakness and decreased p.o. intake. He complains of right side pain. On exam he is tender to the right upper quadrant. In the differential would be kidney stone versus gallbladder disease versus small bowel obstruction or cardiac etiology. Patient initially did not want a thing for pain. CBC with differential obtained showed an elevated white count of 15.4, hemoglobin 14, hematocrit 44, platelets 135. Chemistries unremarkable. LFTs showed a slight elevation in the bilirubin of 1.8 and AST of 43. ALT was 39. Lactate normal at 1.7. Urinalysis unremarkable. CT scan of the abdomen pelvis showed acute cholecystitis. Patient discussed with general surgeon on-call Dr. Euceda who recommended antibiotics and discontinuing the Eliquis and admission to medicine. Patient will be seen by surgeon in consultation. Discussed case with hospitalist to evaluate patient for admission. Lab Data Labs: Laboratory Results - last 24 hr 08/31/22 08/31/22 08/31/22 17:50 18:00 18:52 WBC 15.4 H RBC 4.59 L Hgb 14.4 Hct 44.3 MCV 96.5 H MCH 31.4 MCHC 32.5 RDW Std Deviation 54.3 H RDW Coeff of Sylwia 15.3 H Plt Count 135 L MPV 11.0 Sodium 136 Potassium 4.0 Chloride 105 Carbon Dioxide 24.0 Anion Gap 7 BUN 67 H Creatinine 4.44 H Estim Creat Clear Calc 14.60 Est GFR (MDRD) Af Amer 17 L Est GFR (MDRD) Non-Af 14 L BUN/Creatinine Ratio 15.1 Glucose 117 H Lactic Acid 1.7 Calcium 8.6 Total Bilirubin 1.80 H AST 43 H ALT 39 Alkaline Phosphatase 116 Troponin I High Sens 38 Total Protein 6.7 Albumin 2.7 L Globulin 4.0 Albumin/Globulin Ratio 0.7 L Urine Color Yellow Urine Clarity Clear Urine pH 5.0 Ur Specific [place] 1.025 Urine Protein 30 H Urine Glucose (UA) Normal Urine Ketones Negative Urine Occult Blood 50 H Urine Nitrite Negative Urine Bilirubin 1 H Urine Urobilinogen 1 H Ur Leukocyte Esterase 25 H Urine RBC 0 SEEN Urine WBC 0 SEEN Ur Squamous Epith Cells 0-5 SEEN Urine Bacteria 0 SEEN Urine Mucus 0 SEEN Radiography Diagnostic Testing: Clinical Impression(s) from Imaging Studies Brain CT 08/31/22 17:30 IMPRESSION: Negative Brain CT without contrast. Electronically Signed: Shola Bowen MD at 19:55 EDT , Abdomen/Pelvis CT 08/31/22 18:51 IMPRESSION: Findings suggest acute cholecystitis. Small pelvic fluid is likely reactive. Bibasilar atelectasis and small pleural effusions. Electronically Signed: Shola Bowen MD at 20:18 EDT , Chest X-Ray 08/31/22 19:02 IMPRESSION: Bibasilar atelectasis with hypoinflation. Electronically Signed: Shola Bowen MD at 19:32 EDT , 1 view chest x-ray obtained interpreted by myself as no evidence of infiltrate or pneumothorax or acute disease process. Radiology in agreement. EKG Initial EKG: Attestation: I personally reviewed and interpreted this EKG as follows: Comments: Atrial flutter with a ventricular rate of [address] changes Discharge Plan Dx/Rx/DC Orders Clinical Impression: Acute kidney injury, Generalized weakness, Acute cholecystitis Disposition Disposition: Acute Care Hospital [facility] Discharge Date/Time: 08/31/22 21:55
--- NOTE | 2022-08-31 17:35 | EKG12_ITS ---
Test Reason : SOB Blood Pressure : / mmHG Vent. Rate : 097 BPM Atrial Rate : 366 BPM P-R Int : 000 ms QRS Dur : 096 ms QT Int : 370 ms P-R-T Axes : 000 008 103 degrees QTc Int : 469 ms Atrial flutter with variable A-V block Cannot rule out Inferior infarct , age undetermined Cannot rule out Anterior infarct , age undetermined Abnormal ECG No previous ECGs available Confirmed by HUGH CHAUDHARY, KENDELL ([id number]), editor managing newspaper ANISH SMITH ([id number]) on 09/03/2022 1:42:23 PM Referred By: Wilbert Pradhan Confirmed By:KENDELL REESE MD
[2022-08-31 18:05] LABS: Hematocrit 44.3 % (40-54); Hemoglobin 14.4 g/dL (13.0-16.5); Mean Corp Hgb Conc 32.5 g/dL (32-36); Mean Corpuscular Hgb 31.4 pg (27.0-32.0); Mean Corpuscular Volume 96.5 fL (80-94); Platelet Count 135 K/mm3 (150-450); RBC Distribution Width CV 15.3 % (11.6-14.6); RBC Distribution Width SD 54.3 fl (35.1-43.9); Red Blood Count 4.59 M/mm3 (4.6-6.2); White Blood Count 15.4 K/mm3 (4.4-11.0)
[2022-08-31] MEDS: 0.9% Normal Saline 1,000 ML 150 ML IV (18:06)
[2022-08-31 18:23] LABS: ALB/GLOB Ratio 0.7 RATIO (0.9-2.4); AST(SGOT) 43 U/L (15-37); Alanine Aminotransfer ALT/SGPT 39 U/L (16-61); Albumin, Serum 2.7 g/dL (3.2-5.0); Alkaline Phosphatase 116 U/L (45-117); Anion Gap 7 (5-15); BUN 67 mg/dL (7-18); BUN/Creat Ratio 15.1 RATIO (10-20); Calcium,Total 8.6 mg/dL (8.5-10.1); Chloride 105 mmol/L (98-107); Creatinine, Serum 4.44 mg/dL (0.70-1.30); EST Glomerular Filtration Rate 14 mL/min (>60); Est Glom Filt Rate - Afr Amer 17 mL/min (>60); Glucose 117 mg/dL (74-106); Protein, Total 6.7 g/dL (6.4-8.2); Sodium Level 136 mmol/L (136-145); Troponin-I HS 38 pg/mL (3.0-78.0)
[2022-08-31 18:45] LABS: Lactic Acid 1.7 mmol/L (0.4-1.9)
--- NOTE | 2022-08-31 18:51 | CT_ITS ---
INDICATION: abdominal pain EXAMINATION: CT ABDOMEN AND PELVIS WITHOUT CONTRAST - CT Abdomen And Pelvis W/O Contrast Injection TECHNIQUE: Helically acquired images were obtained of the abdomen and pelvis without oral or IV contrast. A radiation dose optimization technique was used for this scan. IV Contrast dosage and agent: None. Oral contrast: None. RADIATION DOSAGE (If Supplied By Facility): CTDIvol = ( ) mGy, DLP = ( 1515.73 ) mGycm COMPARISON: None FINDINGS: LOWER CHEST: Left more than right lung base atelectasis and small pleural effusions. Coronary artery calcifications. LIVER: Homogeneous. No focal mass. GALLBLADDER AND BILIARY TREE: Distended gallbladder with wall edema and a colostomy in the neck. Small pericholecystic fluid and inflammatory stranding. No intra- or extrahepatic biliary ductal dilation. PANCREAS: Fatty infiltration. SPLEEN: Normal size without focal cystic or solid mass. ADRENAL GLANDS: No nodules. KIDNEYS AND URETERS: Normal renal size and position. No hydronephrosis. PERITONEUM: No ascites or free air. Small free fluid in the pelvis. BOWEL: No evidence of acute appendicitis. No stomach or bowel distension. LYMPH NODES: No enlarged mesenteric or retroperitoneal lymph nodes. VESSELS: Aorta is non-dilated. URINARY BLADDER: Unremarkable. REPRODUCTIVE ORGANS: No pelvic masses. ABDOMINAL WALL: Bilateral fat-containing inguinal hernias. BONES: Degenerative change throughout the thoracolumbar spine. CT/Abdomen/Pelvis without Cont IMPRESSION: Findings suggest acute cholecystitis. Small pelvic fluid is likely reactive. Bibasilar atelectasis and small pleural effusions. Electronically Signed: Shola Bowen MD at 20:18 EDT ,
[2022-08-31 18:59] LABS: Bacteria 0 SEEN /hpf (None Seen); Mucous, Urine 0 SEEN /hpf (<or=2+); Red Blood Cells-Urine 0 SEEN /hpf (0-5); White Blood Cells 0 SEEN /hpf (0-5)
[2022-08-31 19:01] LABS: Color, Urine Yellow (Yellow); Glucose, Dipstick Normal (Normal); Ketone-Dipstick Negative (Negative); Leukocyte Esterase-Dipstick 25 /ul (Negative); Nitrite-Dipstick Negative (Negative); Occult Blood-Urine 50 /ul (Negative); Protein-Dipstick 30 mg/dl (Negative); Specific Gravity, Urine 1.025 (1.002-1.030); Urine Clarity Clear (Clear); Urine Urobilinogen 1 mg/dl (Normal)
--- NOTE | 2022-08-31 19:02 | RAD_ITS ---
INDICATION: Chest pain EXAMINATION/TECHNIQUE: X-RAY - XR Chest 1 View COMPARISON: 08/29/2022 FINDINGS: LINES/DEVICES: Left atrial occlusion device. LUNGS: Bibasilar atelectasis with hypoinflation. No focal consolidation or large pleural effusion. MEDIASTINUM AND CARDIOVASCULAR STRUCTURES: Cardiac silhouette not enlarged. Central airways and mediastinal contour are unremarkable. RAD/Chest 1 View (Portable) IMPRESSION: Bibasilar atelectasis with hypoinflation. Electronically Signed: Shola Bowen MD at 19:32 EDT ,
[2022-08-31 19:04] LABS: Urine Bilirubin Dipstick 1 mg/dL (Negative)
[2022-08-31 19:10] LABS: Squamous Epithelial Cells - UA 0-5 SEEN /hpf (0-5)
--- NOTE | 2022-08-31 21:26 | HP.PCM_ITS ---
HPI - General General Date of Admission: 08/31/22 Date of Service: 08/31/22 Chief Complaint: Generalized weakness with abdominal pain HPI Narrative ERICKA SHELDON, is a 77 M who presents to the emergency room for the second time in 3 days for the chief complaint of generalized weakness. Patient has had some episodes of nausea and vomiting and has progressively become more weak and unable to take care of himself at home. CT scan results are remarkable for acute cholecystitis here in the emergency room. Laboratory studies are remarkable for elevated creatinine to 4 from 3 days ago as well as elevated bilirubin at 1.8. Dr. Euceda has been consulted from the emergency room physician and will see the patient in the a.m. for surgical management. Patient is already on Eliquis for paroxysmal atrial fibrillation which will need to be Discontinued prior to surgery. Patient will be made n.p.o. IV antibiotics initiated along with IV fluids and pain management and antiemetic therapy accordingly for his pending surgery. [facility] Medical History Atherosclerosis of coronary artery of [place] heart without angina pectoris Atrial fibrillation Brantley's esophagus with esophagitis CAD (coronary artery disease) Chronic anticoagulation Chronic depression Chronic kidney disease, stage 3 Chronic kidney disease, stage III (moderate) Depression Essential hypertension GERD (gastroesophageal reflux disease) Hearing deficit History of left heart catheterization (LHC) (~05/20/21) History of septic shock (04/02/16) Hyperlipidemia Hypothyroidism Iron deficiency anemia Left leg swelling Lipodermatosclerosis Obesity (BMI 35.0-39.9 without comorbidity) Obstructive sleep apnea Right leg swelling Sleep apnea Ulcer of left calf Home Medications apixaban 5 mg tablet (Eliquis) 5 mg PO BID blood thinner 11/07/18 [History Last Taken 06/02/21] atorvastatin 40 mg tablet 40 mg PO QHS cholesterol 11/07/18 [History Last Taken Unknown] pantoprazole 40 mg tablet,delayed release 40 mg PO DAILY gerd 11/07/18 [History Last Taken 09/10/20] trospium 20 mg tablet 20 mg PO BID bladder 07/18/19 [History Last Taken 12/03/20] carboxymethylcellulose sodium 1 % eye liquid gel drops 1 drp RIGHT EYE DAILY dry eyes 06/02/21 [History Last Taken Unknown] prednisolone acetate 1 % eye drops,suspension 1 drp LEFT EYE TID eye drops 06/02/21 [History Last Taken Unknown] acetaminophen 500 mg tablet 1,000 mg PO Q6H PRN pain 07/22/21 [History Last Taken Unknown] aspirin 81 mg tablet,delayed release (Adult Low Dose Aspirin) 81 mg PO DAILY antiplatelet 07/22/21 [History Last Taken 11/29/21] cyanocobalamin (vitamin B-12) 1,000 mcg tablet 1,000 mcg PO DAILY vitamin 07/22/21 [History Last Taken Unknown] potassium klor-con 20 meq PO DAILY potassium replacement 08/26/21 [History Last Taken Unknown] levothyroxine 25 mcg tablet 25 mcg PO DAILY thyroid 09/15/21 [History Last Taken Unknown] fluoxetine 20 mg capsule 40 mg PO DAILY mental health 11/30/21 [History Last Taken Unknown] metoprolol tartrate 50 mg tablet 50 mg PO BID heart 11/30/21 [History Last Taken Unknown] furosemide 40 mg tablet (Lasix) 60 mg PO DAILY 12/16/21 [History Last Taken Unknown] kzsqnfug-vk-yxbvy 300 mcg-K 60 mcg-lycop 600 mcg-lutein 300 mcg tablet (Centrum Silver Men) 1 tab PO DAILY 12/16/21 [History Last Taken Unknown] nitroglycerin 0.4 mg sublingual tablet 0.4 mg sublingual Q5M PRN Chest Pain #25 tabs 04/02/22 [Rx Last Taken Unknown] ascorbic acid (vitamin C) 250 mg tablet (Vitamin C) 250 mg PO DAILY 05/22/22 [History Last Taken Unknown] magnesium oxide 420 mg tablet 420 mg PO DAILY 05/22/22 [History Last Taken Unknown] ondansetron HCl 4 mg tablet 4 mg PO Q8H PRN nausea and vomiting #14 tabs 08/29/22 [Rx Last Taken Unknown] promethazine 25 mg tablet 25 mg PO TID PRN nausea and vomiting #14 tabs 08/29/22 [Rx Last Taken Unknown] Allergy/AdvReac Type Severity Reaction Status Date / Time No Known Allergies Allergy Verified 08/31/22 16:37 Family History Father Cancer Lung Mother Heart disease Brother Heart disease CVA (cerebral vascular accident) Brother Heart disease Brother Heart disease Surgical History History of bilateral knee replacement History of coronary artery bypass graft x 3 (~05/27/21) History of total left knee replacement History of total right knee replacement Stented coronary artery (04/14/07) Social History household members: spouse housing: apartment pets and animals: No Smoking Status: Never smoker alcohol intake: never substance use type: does not use caffeine: Yes Type: carbonated beverages Number of servings: 1 ROS Constitutional Constitutional: Reports anorexia and fatigue; Denies chills or fever(s) Eyes Eyes: Denies change in vision ENT HEENT: Reports hearing loss Cardiovascular Cardiovascular: Denies chest pain Respiratory/Chest Respiratory/Chest: Denies cough or shortness of breath at rest Gastrointestinal Gastrointestinal: Reports abdominal pain, nausea and vomiting Genitourinary Genitourinary: Denies dysuria Musculoskeletal Musculoskeletal: Denies back pain Integumentary Integumentary: Denies dry skin Neurologic Neurologic: Reports weakness Psychiatric Psychiatric: Denies anxiety Vital Signs Vital Signs Vital Signs: 08/31/22 16:37 08/31/22 16:59 08/31/22 16:59 Temperature 99 F Temperature Source Temporal Pulse Rate 81 99 Respiratory Rate 14 21 H Respiratory Effort Non-Labored Respiratory Pattern Normal Blood Pressure 97/78 105/79 Blood Pressure Mean 84 87 Pulse Ox 98 96 Oxygen Delivery Method Room Air Room Air 08/31/22 17:35 08/31/22 18:00 Temperature Temperature Source Pulse Rate 102 H Respiratory Rate 24 H Respiratory Effort Respiratory Pattern Blood Pressure 105/69 Blood Pressure Mean 81 Pulse Ox Oxygen Delivery Method Weight Weight: 232 lb 2.348 oz Body Mass Index (BMI) 32.3 Physical Exam Const alert, oriented x3 and no apparent distress General Appearance: cooperative and well developed HEENT normocephalic and head/scalp atraumatic Eyes PERRL Neck no lymphadenopathy Lymph Lymphatic: no lymphadenopathy noted Resp normal respiratory effort, normal air movement and clear to auscultation bilaterally Cardio regular rate, regular rhythm, S1 normal heart sound, S2 normal heart sound and no murmurs GI non-distended Palpation: tender RUQ Skin General Skin Exam: no breakdown Neuro no focal motor deficits and no sensory deficits noted Psych thought process normal, cooperative and affect normal Results Lab / Micro Data 08/31/22 17:50 08/31/22 17:50 Labs: Laboratory Results - last 24 hr 08/31/22 17:50: WBC 15.4 H, RBC 4.59 L, Hgb 14.4, Hct 44.3, MCV 96.5 H, MCH 31.4, MCHC 32.5, RDW Std Deviation 54.3 H, RDW Coeff of Sylwia 15.3 H, Plt Count 135 L, MPV 11.0, Sodium 136, Potassium 4.0, Chloride 105, Carbon Dioxide 24.0, Anion Gap 7, BUN 67 H, Creatinine 4.44 H, Estim Creat Clear Calc 14.60, Est GFR (MDRD) Af Amer 17 L, Est GFR (MDRD) Non-Af 14 L, BUN/Creatinine Ratio 15.1, Glucose 117 H, Calcium 8.6, Total Bilirubin 1.80 H, AST 43 H, ALT 39, Alkaline Phosphatase 116, Troponin I High Sens 38, Total Protein 6.7, Albumin 2.7 L, Globulin 4.0, Albumin/Globulin Ratio 0.7 L 08/31/22 18:00: Lactic Acid 1.7 08/31/22 18:52: Urine Color Yellow, Urine Clarity Clear, Urine pH 5.0, Ur Specific [place] 1.025, Urine Protein 30 H, Urine Glucose (UA) Normal, Urine Ketones Negative, Urine Occult Blood 50 H, Urine Nitrite Negative, Urine Bilirubin 1 H, Urine Urobilinogen 1 H, Ur Leukocyte Esterase 25 H, Urine RBC 0 SEEN, Urine WBC 0 SEEN, Ur Squamous Epith Cells 0-5 SEEN, Urine Bacteria 0 SEEN, Urine Mucus 0 SEEN Radiology Impression Brain CT 08/31/22 17:30 IMPRESSION: Negative Brain CT without contrast. Electronically Signed: Shola Bowen MD at 19:55 EDT , Abdomen/Pelvis CT 08/31/22 18:51 IMPRESSION: Findings suggest acute cholecystitis. Small pelvic fluid is likely reactive. Bibasilar atelectasis and small pleural effusions. Electronically Signed: Shola Bowen MD at 20:18 EDT , Chest X-Ray 08/31/22 19:02 IMPRESSION: Bibasilar atelectasis with hypoinflation. Electronically Signed: Shola Bowen MD at 19:32 EDT , Assessment & Plan Assessment/Plan (1) Hyperlipidemia: (2) Essential hypertension: (3) Atrial fibrillation: (4) Stented coronary artery: (5) Acute cholecystitis: (6) Acute renal failure: PLAN: Plan 1 acute cholecystitis?admit patient to general medical floor, consult surgeon, make patient n.p.o. we will initiate IV fluid normal saline at a rate of 125 cc/h overnight with a repeat CMP and CBC in the morning along with PT/INR. We will discontinue Eliquis at this time. Will initiate IV Zosyn 3.375 mg IV every 6 hours 2. Acute renal failure?IV fluids as above and will repeat CMP in the morning 3. Hypertension?we will monitor and add IV as needed if necessary 4. Hyperlipidemia?holding statin medication while n.p.o. 5. DVT prophylaxis?SCDs as patient is likely to have surgery and will not need anticoagulation prior to this due to already being on Eliquis Charges/Coding Visit Charges Inpatient E&M: 48210 Init Hosp L2
[2022-08-31] MEDS: 0.9% Normal Saline 1,000 ML 125 ML IV (22:53)
[2022-08-31] MEDS: Morphine 2 MG/ML Syringe IV (22:54)
[2022-09-01 05:00] VITALS: BP 109/75; PULSE 91; RESP 18; TEMP 37; O2SAT 93
[2022-09-01] MEDS: 0.9% Normal Saline 1,000 ML 125 ML IV ×2 (06:05→17:42)
[2022-09-01 06:06] LABS: Absolute Lymphocyte Count 0.42 X10^3/uL (0.83-4.51); Absolute Neutrophil Count 8.5 X10^3/uL (2.0-7.7); Basophil# 0.02 X10^3/uL; Basophil% 0.2 % (0-1); Eosinophil# 0.05 X10^3/uL; Eosinophils% 0.5 % (0-5); Hematocrit 39.3 % (40-54); Hemoglobin 12.9 g/dL (13.0-16.5); Lymphocyte # 0.42 X10^3/ul (0.83-4.51); Lymphocyte % 4.2 % (19-41); Mean Corp Hgb Conc 32.8 g/dL (32-36); Mean Corpuscular Hgb 31.4 pg (27.0-32.0); Mean Corpuscular Volume 95.6 fL (80-94); Mean Platelet Vol. 10.3 fl (6.2-12.0); Monocyte# 0.74 X10^3/uL; Monocyte% 7.4 % (0-10); NRBC Flagged by Analyzer 0 % (0-5); Neutrophil % 84.6 % (47-70); POSITIVE DIFFERENTIAL YES; Platelet Count 109 K/mm3 (150-450); RBC Distribution Width CV 15.2 % (11.6-14.6); RBC Distribution Width SD 53.3 fl (35.1-43.9); Red Blood Count 4.11 M/mm3 (4.6-6.2)
[2022-09-01 06:07] LABS: Differential Indicated SCAN CRITERIA MET
[2022-09-01 06:14] LABS: International Normalized Ratio 1.8; Prothrombin Time (Protime)PT. 20.6 SECONDS (11.7-14.9)
[2022-09-01 06:27] LABS: Anisocytosis 1+; Macrocytosis 1+; Platelet Estimate SLT DEC (ADEQ)
[2022-09-01 06:42] LABS: ALB/GLOB Ratio 0.8 RATIO (0.9-2.4); AST(SGOT) 36 U/L (15-37); Alanine Aminotransfer ALT/SGPT 43 U/L (16-61); Albumin, Serum 2.3 g/dL (3.2-5.0); Alkaline Phosphatase 107 U/L (45-117); Anion Gap 5 (5-15); BUN 64 mg/dL (7-18); BUN/Creat Ratio 20.1 RATIO (10-20); Calcium,Total 7.9 mg/dL (8.5-10.1); Chloride 110 mmol/L (98-107); Creatinine, Serum 3.18 mg/dL (0.70-1.30); EST Glomerular Filtration Rate 20 mL/min (>60); Est Glom Filt Rate - Afr Amer 25 mL/min (>60); Estimated Creatinine Clearance 20.39 ml/min; Glucose 112 mg/dL (74-106); Magnesium 1.6 mg/dL (1.6-2.6); Potassium 3.8 mmol/L (3.5-5.1); Protein, Total 5.3 g/dL (6.4-8.2); Sodium Level 139 mmol/L (136-145)
[2022-09-01 07:08] VITALS: O2SAT 94
--- NOTE | 2022-09-01 07:10 | CON.PCM.SX_ITS ---
Assessment & Plan Assessment/Plan (1) Acute cholecystitis: PLAN: The patient presented with abdominal pain. CT scan revealed acute spring cystitis with a stone in the neck. I reviewed his CT scan and there is a lot of inflammation in his right upper quadrant. In addition to that the patient has acute kidney injury with a creatinine over 3 where his baseline is around 1.7. This is minimally improved since yesterday. Patient's white count is improved on antibiotics. With the amount of inflammation and his other comorbidities at this time I recommend cholecystostomy tube. He has edema in all of his extremities. He is likely not taking his Lasix in days and his creatinine is still markedly elevated. I discussed cholecystostomy tube with the patient. I discussed that we would leave the drain in upon discharge and he would follow-up with me in a few weeks for elective cholecystectomy. That would give him more time for his kidneys to recover and the inflammation to down. Once the cholecystostomy tube was and he may start clear liquids and advance diet from there if he tolerates it but it appears that the inflammation in the right upper quadrant may be causing a partial ileus with liquid in the right side of the colon but not much stool in the rest of the colon. Kalyan Euceda MD Pager: [facility] [address] [place] [address], [address] [place] [address] Office: HPI Consult Data Date of Consult: 09/01/22 HPI Narrative HPI Narrative: ERICKA SHELDON, is a 77 M who presents with nausea and abdominal pain. Patient reports that he was in the emergency room 3 days ago with nausea and dry heaving. He says he went home and he has not been able to eat or drink much since then. He has not been able take his medications. He reports last time he took Eliquis was Wednesday. He complains of right upper quadrant pain and right chest pain. [facility] Medical History (Updated 08/31/22 @ 22:30 by Agnes Pack) Anemia Anxiety Atherosclerosis of coronary artery of [place] heart without angina pectoris Atrial fibrillation Atrial fibrillation Brantley's esophagus with esophagitis Bleeding tendency CAD (coronary artery disease) Cancer Chest pain Chronic anticoagulation Chronic depression Chronic kidney disease, stage 3 Chronic kidney disease, stage III (moderate) CPAP (continuous positive airway pressure) dependence Depression Essential hypertension GERD (gastroesophageal reflux disease) Hearing deficit Hearing loss, left Hearing loss, right Hiatal hernia High cholesterol History of left heart catheterization (LHC) (~05/20/21) History of septic shock (04/02/16) History of stress test Hyperlipidemia Hypothyroidism Iron deficiency anemia Kidney disease Left leg swelling Lipodermatosclerosis Non-smoker Obesity (BMI 35.0-39.9 without comorbidity) Obstructive sleep apnea Right leg swelling Sleep apnea Sleep apnea TIA (transient ischemic attack) Ulcer Ulcer of left calf Home Medications apixaban 5 mg tablet (Eliquis) 5 mg PO BID blood thinner 11/07/18 [History Last Taken 06/02/21] atorvastatin 40 mg tablet 40 mg PO QHS cholesterol 11/07/18 [History Last Taken Unknown] pantoprazole 40 mg tablet,delayed release 40 mg PO DAILY gerd 11/07/18 [History Last Taken 09/10/20] trospium 20 mg tablet 20 mg PO BID bladder 07/18/19 [History Last Taken 12/03/20] carboxymethylcellulose sodium 1 % eye liquid gel drops 1 drp RIGHT EYE DAILY dry eyes 06/02/21 [History Last Taken Unknown] prednisolone acetate 1 % eye drops,suspension 1 drp LEFT EYE TID eye drops 06/02/21 [History Last Taken Unknown] acetaminophen 500 mg tablet 1,000 mg PO Q6H PRN pain 07/22/21 [History Last Taken Unknown] aspirin 81 mg tablet,delayed release (Adult Low Dose Aspirin) 81 mg PO DAILY antiplatelet 07/22/21 [History Last Taken 11/29/21] cyanocobalamin (vitamin B-12) 1,000 mcg tablet 1,000 mcg PO DAILY vitamin 07/22/21 [History Last Taken Unknown] potassium klor-con 20 meq PO DAILY potassium replacement 08/26/21 [History Last Taken Unknown] levothyroxine 25 mcg tablet 25 mcg PO DAILY thyroid 09/15/21 [History Last Taken Unknown] fluoxetine 20 mg capsule 40 mg PO DAILY mental health 11/30/21 [History Last Taken Unknown] metoprolol tartrate 50 mg tablet 50 mg PO BID heart 11/30/21 [History Last Taken Unknown] furosemide 40 mg tablet (Lasix) 60 mg PO DAILY 12/16/21 [History Last Taken Unknown] rhvvotlh-ii-otiwk 300 mcg-K 60 mcg-lycop 600 mcg-lutein 300 mcg tablet (Centrum Silver Men) 1 tab PO DAILY 12/16/21 [History Last Taken Unknown] nitroglycerin 0.4 mg sublingual tablet 0.4 mg sublingual Q5M PRN Chest Pain #25 tabs 04/02/22 [Rx Last Taken Unknown] ascorbic acid (vitamin C) 250 mg tablet (Vitamin C) 250 mg PO DAILY 05/22/22 [History Last Taken Unknown] magnesium oxide 420 mg tablet 420 mg PO DAILY 05/22/22 [History Last Taken Unknown] ondansetron HCl 4 mg tablet 4 mg PO Q8H PRN nausea and vomiting #14 tabs 08/29/22 [Rx Last Taken Unknown] promethazine 25 mg tablet 25 mg PO TID PRN nausea and vomiting #14 tabs 08/29/22 [Rx Last Taken Unknown] Allergy/AdvReac Type Severity Reaction Status Date / Time No Known Allergies Allergy Verified 08/31/22 16:37 Family History Father Cancer Lung Mother Heart disease Brother Heart disease CVA (cerebral vascular accident) Brother Heart disease Brother Heart disease Surgical History (Updated 08/31/22 @ 22:30 by Agnes Pack) H/O cardiac catheterization History of appendectomy History of bilateral knee replacement History of coronary artery bypass graft x 3 (~05/27/21) History of coronary artery stent placement History of total left knee replacement History of total right knee replacement Hx of CABG Stented coronary artery (04/14/07) Social History household members: spouse housing: apartment pets and animals: No Smoking Status: Never smoker alcohol intake: never substance use type: does not use caffeine: Yes Type: carbonated beverages Number of servings: 1 ROS Constitutional Constitutional: Reports anorexia and fatigue; Denies chills or fever(s) Eyes Eyes: Denies blurry vision ENT HEENT: Denies abnormal hearing Cardiovascular Cardiovascular: Denies chest pain Respiratory/Chest Respiratory/Chest: Denies cough or dyspnea Gastrointestinal Gastrointestinal: Reports abdominal pain, nausea and vomiting; Denies bloating or change in bowel habits Genitourinary Genitourinary: Denies change in urinary stream Musculoskeletal Musculoskeletal: Denies abnormal gait Integumentary Integumentary: Denies jaundice Neurologic Neurologic: Denies dizziness Psychiatric Psychiatric: Denies anxiety Physical Exam Const alert and oriented x3 HEENT normocephalic Eyes PERRL Resp normal respiratory effort Cardio Rate: regular rate Rhythm: regular rhythm GI soft to palpation Inspection: Negative for abdominal distention Palpation: tender RUQ Extremity Extremity Narrative: Edema in all 4 extremities Neuro CN's II-XII intact bilaterally Lab / Micro Data 09/01/22 05:30 09/01/22 05:30 Labs: Laboratory Results - last 24 hr 08/31/22 17:50: WBC 15.4 H, RBC 4.59 L, Hgb 14.4, Hct 44.3, MCV 96.5 H, MCH 31.4, MCHC 32.5, RDW Std Deviation 54.3 H, RDW Coeff of Sylwia 15.3 H, Plt Count 135 L, MPV 11.0, Sodium 136, Potassium 4.0, Chloride 105, Carbon Dioxide 24.0, Anion Gap 7, BUN 67 H, Creatinine 4.44 H, Estim Creat Clear Calc 14.60, Est GFR (MDRD) Af Amer 17 L, Est GFR (MDRD) Non-Af 14 L, BUN/Creatinine Ratio 15.1, Glucose 117 H, Calcium 8.6, Total Bilirubin 1.80 H, AST 43 H, ALT 39, Alkaline Phosphatase 116, Troponin I High Sens 38, Total Protein 6.7, Albumin 2.7 L, Globulin 4.0, Albumin/Globulin Ratio 0.7 L 08/31/22 18:00: Lactic Acid 1.7 08/31/22 18:52: Urine Color Yellow, Urine Clarity Clear, Urine pH 5.0, Ur Specific [place] 1.025, Urine Protein 30 H, Urine Glucose (UA) Normal, Urine Ketones Negative, Urine Occult Blood 50 H, Urine Nitrite Negative, Urine Bilirubin 1 H, Urine Urobilinogen 1 H, Ur Leukocyte Esterase 25 H, Urine RBC 0 SEEN, Urine WBC 0 SEEN, Ur Squamous Epith Cells 0-5 SEEN, Urine Bacteria 0 SEEN, Urine Mucus 0 SEEN 09/01/22 05:30: WBC 10.0, RBC 4.11 L, Hgb 12.9 L, Hct 39.3 L, MCV 95.6 H, MCH 31.4, MCHC 32.8, RDW Std Deviation 53.3 H, RDW Coeff of Sylwia 15.2 H, Plt Count 109 L, MPV 10.3, Immature Gran % (Auto) 3.100 H, Neut % (Auto) 84.6 H, Lymph % (Auto) 4.2 L, [place] % (Auto) 7.4, Eos % (Auto) 0.5, Baso % (Auto) 0.2, Absolute Neuts (auto) 8.5 H, Absolute Lymphs (auto) 0.42 L, Nucleated RBC % 0, Platelet Estimate SLT DEC, Anisocytosis 1+, Macrocytosis 1+, PT 20.6 H, INR 1.8, Sodium 139, Potassium 3.8, Chloride 110 H, Carbon Dioxide 24.0, Anion Gap 5, BUN 64 H, Creatinine 3.18 H, Estim Creat Clear Calc 20.39, Est GFR (MDRD) Af Amer 25 L, Est GFR (MDRD) Non-Af 20 L, BUN/Creatinine Ratio 20.1 H, Glucose 112 H, Calcium 7.9 L, Magnesium 1.6, Total Bilirubin 1.20 H, AST 36, ALT 43, Alkaline Phosphatase 107, Total Protein 5.3 L, Albumin 2.3 L, Globulin 3.0, Albumin/Globulin Ratio 0.8 L Radiology Impression Brain CT 08/31/22 17:30 IMPRESSION: Negative Brain CT without contrast. Electronically Signed: Shola Bowen MD at 19:55 EDT , Abdomen/Pelvis CT 08/31/22 18:51 IMPRESSION: Findings suggest acute cholecystitis. Small pelvic fluid is likely reactive. Bibasilar atelectasis and small pleural effusions. Electronically Signed: Shola Bowen MD at 20:18 EDT , Chest X-Ray 08/31/22 19:02 IMPRESSION: Bibasilar atelectasis with hypoinflation. Electronically Signed: Shola Bwoen MD at 19:32 EDT ,
[2022-09-01 08:00] VITALS: BP 126/81; PULSE 92; RESP 18; TEMP 36.7; O2SAT 96
[2022-09-01] MEDS: Glycerin/Hypromellose/PEG400 15 ml Bottle 1 DRP RIGHT EYE (09:53)
[2022-09-01] MEDS: Morphine 2 MG/ML Syringe IV ×3 (10:34→20:41)
[2022-09-01] MEDS: 0.9% Saline Lock 10 ML Syringe IV ×2 (10:34→13:37)
--- NOTE | 2022-09-01 10:55 | CASEMGMT ---
TONY GILLESPIE Assessment: Face to Face with pt for initial transition planning/care coordination assessment. TONY GILLESPIE introduced self and role at [facility], pt voices understanding and consents to assessment. Pt is A/O x4 and answers all questions appropriately at this time. Pt lying in bed in no distress. Care providers, pharmacy, and demographics verified/updated. Admitting Dx: acute cholecystitis, renal failure PCP:Lorne Specialists:Rhett, pulm; NITIN, cardio; Gelacio, nephro; [facility]- pt had an appt today he states for a wound on his left leg. Preferred Pharmacy: [facility] [place] Insurance: MCR, MCR supp Prescription Benefit: yes LNOK: Zaynab Gan, ; Yeimi Wong, dtr Living Arrangements: Pt lives with in a single story home with no steps to enter. Pt reports he was I in ADL's up until a few days ago. Pt states he has been weak for the last couple of days. Pt shares in cooking with , gets groceries on own and has a private aide who does laundry. Transportation: Pt drives self and denies concerns with transportation. DME/HHC/SNF: Pt has a shower chair, rollator, cane and walker at home. Pt has not been using AD. Pt denies hx of HHC or SNF stays. Pt states no concerns with going home at time of dc.He states if he goes home with the choley tube, he may need help at home. Discussed HHC, pt is open to this. At this time, he is not sure if he would need therapy. Will follow therapy evals. Discussed dc plan with on speakerphone of pt phone. She is agreeable to plan. Pt states no further concerns/needs. CM to follow. Advised pt to ask CM if any further question/concerns/needs arise, voices understanding. Pt Goal: Home vs Home with HHC Plan: Home vs Home with HHC
--- NOTE | 2022-09-01 11:05 | CASEMGMT ---
Social work Pt has both a living will and a health care POA naming his yovany Gan scanned into the medical record. PRABHU Potter
--- NOTE | 2022-09-01 11:08 | PN_ITS ---
Subjective Subjective Patient seen and examined. He still complains of some abdominal pain. He denies any fever, chills, nausea, vomiting or any other symptoms. Review of systems is otherwise negative. He has remained hemodynamically stable. Objective Data Objective Data Vital Signs: Vital Signs Temp Pulse Resp BP Pulse Ox O2 Del Method 98.1 F 92 18 126/81 H 96 Room Air 09/01/22 08:00 09/01/22 08:00 09/01/22 08:00 09/01/22 08:00 09/01/22 08:00 09/01/22 08:00 Oxygen Delivery Method Room Air Weight: 231 lb 7.766 oz Body Mass Index (BMI) 32.3 Intake & Output: Intake and Output for Last 24 Hours 08/30/22 08/31/22 09/01/22 23:59 23:59 23:59 Intake Total 697.5 / 697.5 1375 / 1375 Balance 697.5 / 697.5 1375 / 1375 Lab / Micro Data 09/01/22 05:30 09/01/22 05:30 Labs: Laboratory Results - last 24 hr 08/31/22 17:50: WBC 15.4 H, RBC 4.59 L, Hgb 14.4, Hct 44.3, MCV 96.5 H, MCH 31.4, MCHC 32.5, RDW Std Deviation 54.3 H, RDW Coeff of Sylwia 15.3 H, Plt Count 135 L, MPV 11.0, Sodium 136, Potassium 4.0, Chloride 105, Carbon Dioxide 24.0, Anion Gap 7, BUN 67 H, Creatinine 4.44 H, Estim Creat Clear Calc 14.60, Est GFR (MDRD) Af Amer 17 L, Est GFR (MDRD) Non-Af 14 L, BUN/Creatinine Ratio 15.1, Glucose 117 H, Calcium 8.6, Total Bilirubin 1.80 H, AST 43 H, ALT 39, Alkaline Phosphatase 116, Troponin I High Sens 38, Total Protein 6.7, Albumin 2.7 L, Globulin 4.0, Albumin/Globulin Ratio 0.7 L 08/31/22 18:00: Lactic Acid 1.7 08/31/22 18:52: Urine Color Yellow, Urine Clarity Clear, Urine pH 5.0, Ur Specific Mica 1.025, Urine Protein 30 H, Urine Glucose (UA) Normal, Urine Ketones Negative, Urine Occult Blood 50 H, Urine Nitrite Negative, Urine Bilirubin 1 H, Urine Urobilinogen 1 H, Ur Leukocyte Esterase 25 H, Urine RBC 0 SEEN, Urine WBC 0 SEEN, Ur Squamous Epith Cells 0-5 SEEN, Urine Bacteria 0 SEEN, Urine Mucus 0 SEEN 09/01/22 05:30: WBC 10.0, RBC 4.11 L, Hgb 12.9 L, Hct 39.3 L, MCV 95.6 H, MCH 31.4, MCHC 32.8, RDW Std Deviation 53.3 H, RDW Coeff of Sylwia 15.2 H, Plt Count 109 L, MPV 10.3, Immature Gran % (Auto) 3.100 H, Neut % (Auto) 84.6 H, Lymph % (Auto) 4.2 L, [place] % (Auto) 7.4, Eos % (Auto) 0.5, Baso % (Auto) 0.2, Absolute Neuts (auto) 8.5 H, Absolute Lymphs (auto) 0.42 L, Nucleated RBC % 0, Platelet Estimate SLT DEC, Anisocytosis 1+, Macrocytosis 1+, PT 20.6 H, INR 1.8, Sodium 139, Potassium 3.8, Chloride 110 H, Carbon Dioxide 24.0, Anion Gap 5, BUN 64 H, Creatinine 3.18 H, Estim Creat Clear Calc 20.39, Est GFR (MDRD) Af Amer 25 L, Est GFR (MDRD) Non-Af 20 L, BUN/Creatinine Ratio 20.1 H, Glucose 112 H, Calcium 7.9 L, Magnesium 1.6, Total Bilirubin 1.20 H, AST 36, ALT 43, Alkaline Phosphatase 107, Total Protein 5.3 L, Albumin 2.3 L, Globulin 3.0, Albumin/Globulin Ratio 0.8 L Radiography Diagnostic Testing: Radiology Impression Brain CT 08/31/22 17:30 IMPRESSION: Negative Brain CT without contrast. Electronically Signed: Shola Bowen MD at 19:55 EDT , Abdomen/Pelvis CT 08/31/22 18:51 IMPRESSION: Findings suggest acute cholecystitis. Small pelvic fluid is likely reactive. Bibasilar atelectasis and small pleural effusions. Electronically Signed: Shola Bowen MD at 20:18 EDT , Chest X-Ray 08/31/22 19:02 IMPRESSION: Bibasilar atelectasis with hypoinflation. Electronically Signed: Shola Bowen MD at 19:32 EDT , Physical Exam Const alert, oriented x3 and no apparent distress General Appearance: cooperative HEENT normocephalic and head/scalp atraumatic Eyes PERRL Neck no lymphadenopathy and supple General: trachea midline Lymph Lymphatic: no lymphadenopathy noted Resp normal respiratory effort, normal air movement and clear to auscultation bilaterally Cardio regular rate, regular rhythm, S1 normal heart sound, S2 normal heart sound and no murmurs GI normal to inspection, nondistended, normoactive bowel sounds GI Narrative: moderate RUQ tenderness with positive Shaikh's sign. No guarding or rebound tenderness Extremity normal capillary refill, no clubbing, cyanosis or edema and no calf tenderness Skin General Skin Exam: no breakdown Neuro CN's II-XII intact bilaterally, no focal motor deficits, no sensory deficits noted and deep tendon reflexes 2+ bilaterally Motor Exam: strength 5/5 throughout Psych thought process normal and cooperative Appearance: appropriate Assessment & Plan Assessment/Plan (1) Acute cholecystitis: (2) Acute renal failure: PLAN: Plan #Acute cholecystitis * currently NPO. Being hydrated with IVF * general surgery on board. Recommends the cholecystostomy tube in light of patient;s KODY * To follow-up with general surgery on outpatient basis for elective cholecystectomy. * On IV Zosyn * #KODY on CKD 3 * Creatinine was 4.44 on admission but is now trended down to around 3.18 * Urine looks very concentrated. Continue gentle hydration with IV fluids and trend. * If creatinine stops improving, will do further work-up for KODY with renal ultrasound and FeNa/FeUrea as well as urine electrolytes * #HYperension: #Hyperlipidemia: on statin, but is currently NPO so statin on hold #Afib: on eliquis. s/p Maze procedure. on metoprolol #CAD: on aspirin, atorvastatin #Hypothyroidism: on synthroid #DEpression: on fluoxetine DVT prophylaxis: SCDs Charges/Coding Visit Charges Inpatient E&M: 85497 Subs Hosp L3
--- NOTE | 2022-09-01 11:45 | NURSING ---
This RN talked to pt's on the phone. Per , pt did have morning dose of eliquis yesterday, 08/31. This RN called radiology to tell them this and radiology said they will talk to dr and let us know what the plan is. In meantime, pt can be on clear liquid diet (per dr wang and dr bush).
[2022-09-01 14:35] VITALS: BP 121/81; PULSE 100; RESP 18; TEMP 36.8; O2SAT 94
--- NOTE | 2022-09-01 15:40 | CASEMGMT ---
Social Work SW was notified by RN that pt called in stating she cannot care for pt at home and he will need a SNF. SW updated therapy and requested evals for SNF. SW reviewed PT/OT evals. Pt is able to ambulate 220 ft SBA with no gait deviations and could have gone further. Pt was at [facility] for all transfers. therapy is recommending home therapy. SW placed call to pt and notified that pt does not meet the Medicare guidelines for SNF placement. Pt upset with this SW stating he is supposed to be taking care of me and He doesn't keep up with the household tasks. SW offered home health and pt does not think this will be helpful at all. upset but does acknowledge understanding that pt does not qualify for SNF. Plan: Return home at time of discharge. Will speak to pt regarding home health PRABHU Potter
[2022-09-01 20:21] VITALS: BP 126/84; PULSE 98; RESP 17; TEMP 36.6; O2SAT 96
[2022-09-01 20:23] VITALS: RESP 17
[2022-09-02] VITALS (19 sets, daily range): BP systolic 106–151; BP diastolic 37–91; PULSE 83–127; RESP 14–22; TEMP 36.6–37.5; O2SAT 92–95
[2022-09-02] MEDS: 0.9% Normal Saline 1,000 ML 125 ML IV ×2 (05:48→21:31)
[2022-09-02 06:59] LABS: Absolute Lymphocyte Count 0.36 X10^3/uL (0.83-4.51); Absolute Neutrophil Count 7.9 X10^3/uL (2.0-7.7); Basophil# 0.02 X10^3/uL; Basophil% 0.2 % (0-1); Eosinophils% 1.1 % (0-5); Hematocrit 45.1 % (40-54); Hemoglobin 14.7 g/dL (13.0-16.5); Lymphocyte # 0.36 X10^3/ul (0.83-4.51); Lymphocyte % 3.9 % (19-41); Mean Corp Hgb Conc 32.6 g/dL (32-36); Mean Corpuscular Hgb 31.4 pg (27.0-32.0); Mean Corpuscular Volume 96.4 fL (80-94); Mean Platelet Vol. 10.1 fl (6.2-12.0); Monocyte# 0.76 X10^3/uL; Monocyte% 8.3 % (0-10); NRBC Flagged by Analyzer 0 % (0-5); Neutrophil # 7.86 X10^3/uL (2.7-7.7); Neutrophil % 85.8 % (47-70); POSITIVE DIFFERENTIAL YES; Platelet Count 142 K/mm3 (150-450); RBC Distribution Width CV 15.4 % (11.6-14.6); RBC Distribution Width SD 54.4 fl (35.1-43.9); Red Blood Count 4.68 M/mm3 (4.6-6.2); White Blood Count 9.2 K/mm3 (4.4-11.0)
[2022-09-02 07:05] LABS: Differential Indicated SCAN CRITERIA MET
--- NOTE | 2022-09-02 07:09 | CT_ITS ---
PROCEDURE: CT GUIDED percutaneous cholecystostomy. DATE: September 02, 2022. INDICATION: Male, 77 years old. Acute cholecystitis. PHYSICIAN: Brian Peres M.D. RADIATION DOSAGE (If Supplied By Facility): CTDIvol = ( 29.1 ) mGy, DLP = ( 1497.65 ) mGycm. Individualized dose optimization techniques were utilized. PROCEDURE: The risks, benefits, and alternatives to the procedure were explained to the patient. The specific risk of hemorrhage and infection requiring further treatment or intervention was detailed and accepted. Follow-up instructions were discussed with the patient as well. Written informed consent was obtained. The patient was brought into the CT suite and placed in the supine position. . An appropriate entry site was identified. The overlying skin was prepped and draped in the usual sterile fashion. 1% lidocaine was administered subcutaneously for local anesthesia. Conscious sedation was performed. The patient received 2 mg of Versed and 50 mcg of fentanyl intravenously. Conscious sedation was started at 9:13 AM and terminated 9:33 AM. The patient was independently monitored by the department nurse. Under CT guidance, a percutaneous cholecystostomy was performed utilizing a 8 Bangladeshi all-purpose drainage catheter. 150 cc of dark bloody bile was removed. The catheter was left in place with gravity drainage. Hemostasis was obtained. The patient tolerated the procedure well without immediate complications. CT/CT Guidance Abscess Drg w/Cath IMPRESSION: Successful CT guided percutaneous cholecystostomy, as described above. The conscious sedation protocol was followed. Electronically Signed: Brian Peres MD at 9:52 EDT ,
[2022-09-02 07:49] LABS: ALB/GLOB Ratio 0.6 RATIO (0.9-2.4); AST(SGOT) 39 U/L (15-37); Alanine Aminotransfer ALT/SGPT 57 U/L (16-61); Albumin, Serum 2.3 g/dL (3.2-5.0); Alkaline Phosphatase 154 U/L (45-117); Anion Gap 4 (5-15); BUN 47 mg/dL (7-18); BUN/Creat Ratio 20.9 RATIO (10-20); Calcium,Total 8.2 mg/dL (8.5-10.1); Chloride 110 mmol/L (98-107); Creatinine, Serum 2.25 mg/dL (0.70-1.30); EST Glomerular Filtration Rate 30 mL/min (>60); Est Glom Filt Rate - Afr Amer 37 mL/min (>60); Estimated Creatinine Clearance 28.82 ml/min; Globulin 3.6 g/dL (2.2-4.2); Glucose 123 mg/dL (74-106); Potassium 3.5 mmol/L (3.5-5.1); Protein, Total 5.9 g/dL (6.4-8.2); Sodium Level 140 mmol/L (136-145); Thyroid Stim Hormone (TSH) 1.46 uIU/mL (0.358-3.74)
--- NOTE | 2022-09-02 08:12 | PCM.PN.SRG ---
Subjective Subjective Patient tolerated clears yesterday Objective Data Objective Data Vital Signs: Vital Signs Temp Pulse Resp BP Pulse Ox O2 Del Method 99.5 F H 91 18 129/80 H 94 Room Air 09/02/22 07:50 09/02/22 07:50 09/02/22 07:50 09/02/22 07:50 09/02/22 07:50 09/02/22 08:00 Oxygen Delivery Method Room Air Weight: 231 lb 7.766 oz Body Mass Index (BMI) 32.3 Intake & Output: Intake and Output for Last 24 Hours 08/31/22 09/01/22 09/02/22 23:59 23:59 23:59 Intake Total 697.5 / 697.5 1858.33 / 1858.33 1050 / 1050 Output Total 1300 / 1300 500 / 500 Balance 697.5 / 697.5 558.33 / 558.33 550 / 550 Lab / Micro Data 09/02/22 06:39 09/02/22 06:39 Labs: Laboratory Results - last 24 hr 09/02/22 06:39: WBC 9.2, RBC 4.68, Hgb 14.7, Hct 45.1, MCV 96.4 H, MCH 31.4, MCHC 32.6, RDW Std Deviation 54.4 H, RDW Coeff of Sylwia 15.4 H, Plt Count 142 L, MPV 10.1, Immature Gran % (Auto) 0.700, Neut % (Auto) 85.8 H, Lymph % (Auto) 3.9 L, [place] % (Auto) 8.3, Eos % (Auto) 1.1, Baso % (Auto) 0.2, Absolute Neuts (auto) 7.9 H, Absolute Lymphs (auto) 0.36 L, Nucleated RBC % 0, Sodium 140, Potassium 3.5, Chloride 110 H, Carbon Dioxide 26.0, Anion Gap 4 L, BUN 47 H, Creatinine 2.25 H, Estim Creat Clear Calc 28.82, Est GFR (MDRD) Af Amer 37 L, Est GFR (MDRD) Non-Af 30 L, BUN/Creatinine Ratio 20.9 H, Glucose 123 H, Calcium 8.2 L, Total Bilirubin 1.60 H, AST 39 H, ALT 57, Alkaline Phosphatase 154 H, Total Protein 5.9 L, Albumin 2.3 L, Globulin 3.6, Albumin/Globulin Ratio 0.6 L, TSH 1.46 Physical Exam Const oriented x3 Resp normal respiratory effort GI soft to palpation Palpation: tender Assessment & Plan Assessment/Plan (1) Acute cholecystitis: PLAN: Cholecystostomy tube was held yesterday due to the patient actually taking his Eliquis even though he told me he did not. Likely cholecystostomy tube will be placed today. After cholecystostomy tube was placed he may advance diet as tolerated. White count is coming down nicely. Kalyan Euceda MD Pager: [facility] [address] [place] [address], [address] [place] [address] Office:
[2022-09-02 08:26] LABS: Partial Thromboplast Time 42.9 Seconds (24.1-36.2)
[2022-09-02] MEDS: Midazolam 2 MG/2 ML Syringe IV (09:13)
[2022-09-02] MEDS: fentaNYL 100 MCG/2 ML Ampul IV (09:13)
[2022-09-02] MEDS: Lidocaine 2% (20 ml mdv) 20 ML Vial INFILT (09:15)
--- NOTE | 2022-09-02 09:41 | PN_ITS ---
Subjective Subjective Patient seen and examined. He had no complaints and had an uneventful night. Review of systems is otherwise negative. He has remained hemodynamically stable. He could not have the cholecystostomy tube placed yesterday because he had received his Eliquis the day prior. He is due for the cholecystostomy tube insertion today. Objective Data Objective Data Vital Signs: Vital Signs Temp Pulse Resp BP Pulse Ox O2 Del Method 98 F 111 H 18 138/82 H 94 Room Air 09/02/22 08:56 09/02/22 08:56 09/02/22 08:56 09/02/22 08:56 09/02/22 08:56 09/02/22 08:56 Oxygen Delivery Method Room Air Weight: 231 lb 7.766 oz Body Mass Index (BMI) 32.3 Intake & Output: Intake and Output for Last 24 Hours 08/31/22 09/01/22 09/02/22 23:59 23:59 23:59 Intake Total 697.5 / 697.5 1858.33 / 1858.33 1050 / 1050 Output Total 1300 / 1300 500 / 500 Balance 697.5 / 697.5 558.33 / 558.33 550 / 550 Lab / Micro Data 09/02/22 06:39 09/02/22 06:39 Labs: Laboratory Results - last 24 hr 09/02/22 06:39: WBC 9.2, RBC 4.68, Hgb 14.7, Hct 45.1, MCV 96.4 H, MCH 31.4, MCHC 32.6, RDW Std Deviation 54.4 H, RDW Coeff of Sylwia 15.4 H, Plt Count 142 L, MPV 10.1, Immature Gran % (Auto) 0.700, Neut % (Auto) 85.8 H, Lymph % (Auto) 3.9 L, [place] % (Auto) 8.3, Eos % (Auto) 1.1, Baso % (Auto) 0.2, Absolute Neuts (auto) 7.9 H, Absolute Lymphs (auto) 0.36 L, Nucleated RBC % 0, APTT 42.9 H, Sodium 140, Potassium 3.5, Chloride 110 H, Carbon Dioxide 26.0, Anion Gap 4 L, BUN 47 H , Creatinine 2.25 H, Estim Creat Clear Calc 28.82, Est GFR (MDRD) Af Amer 37 L, Est GFR (MDRD) Non-Af 30 L, BUN/Creatinine Ratio 20.9 H, Glucose 123 H, Calcium 8.2 L, Total Bilirubin 1.60 H, AST 39 H, ALT 57, Alkaline Phosphatase 154 H, Total Protein 5.9 L, Albumin 2.3 L, Globulin 3.6, Albumin/Globulin Ratio 0.6 L, TSH 1.46 Physical Exam Const alert, oriented x3 and no apparent distress General Appearance: cooperative and well developed HEENT normocephalic and head/scalp atraumatic Eyes PERRL and EOMs intact bilaterally Neck no lymphadenopathy and supple General: trachea midline Lymph Lymphatic: no lymphadenopathy noted and no lymphedema noted Resp normal respiratory effort, normal air movement and clear to auscultation bilaterally Cardio regular rate, regular rhythm, S1 normal heart sound, S2 normal heart sound and no murmurs GI normal to inspection, nondistended, normoactive bowel sounds and non-distended GI Narrative: mild RUQ tenderness with positive Shaikh's sign. No guarding or rebound tender ness Palpation: tender RUQ Extremity normal capillary refill, no clubbing, cyanosis or edema and no calf tenderness Skin General Skin Exam: no breakdown Neuro CN's II-XII intact bilaterally, no focal motor deficits, no sensory deficits noted and deep tendon reflexes 2+ bilaterally Motor Exam: strength 5/5 throughout Psych thought process normal, cooperative and affect normal Appearance: appropriate Assessment & Plan Assessment/Plan (1) Acute cholecystitis: (2) Acute renal failure: PLAN: Plan #Acute cholecystitis * currently NPO. * general surgery on board. Recommends the cholecystostomy tube in light of patient;s KODY * To follow-up with general surgery on outpatient basis for elective cholecyst ectomy. * On IV Zosyn * cholecystostomy tube couldnt be inserted today because of him having received his eliquis the day before. For tube insertion today. * #KODY on CKD 3 * Creatinine has trended down further to 2.25. * continue gentle hydration with iVF. Encourage oral hydration once he is no longer NPO. * * #HYpertension: on metoprolol. #Hyperlipidemia: on statin, but is currently NPO so statin on hold #Afib: on eliquis. s/p Maze procedure. on metoprolol. HR elevated today in the 110s and 120s. Likely because he is NPO and hasnt received his meds. Resume metoprolol. #CAD: on aspirin, atorvastatin #Hypothyroidism: on synthroid #DEpression: on fluoxetine DVT prophylaxis: SCDs Charges/Coding Visit Charges Inpatient E&M: 62168 Subs Hosp L2
[2022-09-02] MEDS: Metoprolol Tartrate 50 MG Tablet PO ×2 (10:57→21:30)
--- NOTE | 2022-09-02 11:30 | CASEMGMT ---
Addendum entered by Ann Marie Guadalupe 09/02/22 15:38: Pt agreeable to appt with tomorrow prior to going home for HHC to start. Will call for same day appt upon dc. Addendum entered by Ann Marie Guadalupe 09/02/22 15:36: TC to pt , she states she has chosen [facility]. TC to Kindra at [facility], referral made, will await decion on acceptance. Pt is a patient of 's so pt will need an appt with prior to the homecare starting. Addendum entered by Ann Marie Guadalupe 09/02/22 13:33: Pt also states he does not have transporation home tomorrow, he is aware we can look into the hospital van when dc is known positively. Pt states he may be able to afford a taxi home if not. Addendum entered by Ann Marie Guadalupe 09/02/22 13:31: TONY GILLESPIE back into pt room, pt dtr states she is taking the HH list home to her mother to review. Pt will then call this TONY GILLESPIE with choices. Pt is agreeable to her choosing the agency. She plans to call yet today. Plan for pt to dc tomorrow. Original Note: RN VERNA into pt room, pt dtr present, discussed dc planning and pt is aware he is not meeting criteria for SNF. He is insterested in HHC, discussed SN, PT and OT at home. Pt is agreeable to this as well as dtr. Patient was provided a list of [facility] providers including quality and resource use data and consistent with the patient?s preferred geographic region, medical needs, and insurance network were provided from the [employer] Guide. Pt and dtr to review and consult for top 3 preferences, TONY GILLESPIE to check back.
[2022-09-02] MEDS: prednisoLONE eye drops (5 mL) 1 DROP OPTH.BTL 1 DRP LEFT EYE ×2 (14:18→21:31)
[2022-09-02] MEDS: Atorvastatin Calcium 40 MG Tablet PO (21:30)
[2022-09-03 02:10] VITALS: BP 132/79; PULSE 72; RESP 18; TEMP 36.7; O2SAT 97
[2022-09-03 06:01] LABS: Absolute Lymphocyte Count 0.61 X10^3/uL (0.83-4.51); Absolute Neutrophil Count 4.3 X10^3/uL (2.0-7.7); Basophil# 0.03 X10^3/uL; Basophil% 0.5 % (0-1); Eosinophil# 0.19 X10^3/uL; Eosinophils% 3.2 % (0-5); Hematocrit 38.4 % (40-54); Hemoglobin 12.8 g/dL (13.0-16.5); Lymphocyte # 0.61 X10^3/ul (0.83-4.51); Lymphocyte % 10.2 % (19-41); Mean Corp Hgb Conc 33.3 g/dL (32-36); Mean Corpuscular Hgb 31.8 pg (27.0-32.0); Mean Corpuscular Volume 95.3 fL (80-94); Monocyte# 0.76 X10^3/uL; Monocyte% 12.7 % (0-10); NRBC Flagged by Analyzer 0 % (0-5); Neutrophil # 4.31 X10^3/uL (2.7-7.7); Neutrophil % 71.9 % (47-70); Platelet Count 147 K/mm3 (150-450); RBC Distribution Width SD 52.9 fl (35.1-43.9); Red Blood Count 4.03 M/mm3 (4.6-6.2)
[2022-09-03] MEDS: prednisoLONE eye drops (5 mL) 1 DROP OPTH.BTL 1 DRP LEFT EYE (06:02)
[2022-09-03] MEDS: Levothyroxine 25 MCG TABLET PO (06:02)
[2022-09-03] MEDS: 0.9% Normal Saline 1,000 ML 125 ML IV (06:03)
[2022-09-03 06:30] LABS: ALB/GLOB Ratio 0.5 RATIO (0.9-2.4); AST(SGOT) 55 U/L (15-37); Alanine Aminotransfer ALT/SGPT 64 U/L (16-61); Albumin, Serum 1.8 g/dL (3.2-5.0); Alkaline Phosphatase 156 U/L (45-117); Anion Gap 3 (5-15); BUN 36 mg/dL (7-18); BUN/Creat Ratio 20.5 RATIO (10-20); Chloride 113 mmol/L (98-107); Creatinine, Serum 1.76 mg/dL (0.70-1.30); EST Glomerular Filtration Rate 40 mL/min (>60); Est Glom Filt Rate - Afr Amer 48 mL/min (>60); Estimated Creatinine Clearance 36.84 ml/min; Globulin 3.3 g/dL (2.2-4.2); Glucose 119 mg/dL (74-106); Potassium 3.3 mmol/L (3.5-5.1); Protein, Total 5.1 g/dL (6.4-8.2); Sodium Level 142 mmol/L (136-145)
--- NOTE | 2022-09-03 07:41 | PCM.PN.SRG ---
Subjective Subjective Patient reports that he tolerated diet with no nausea or vomiting. He is not complaining of any abdominal pain. Objective Data Objective Data Vital Signs: Vital Signs Temp Pulse Resp BP Pulse Ox O2 Del Method O2 Flow Rate 98.0 F 72 18 132/79 H 97 Room Air 2 09/03/22 02:10 09/03/22 02:10 09/03/22 02:10 09/03/22 02:10 09/03/22 02:10 09/03/22 02:10 09/02/22 09:13 Oxygen Flow Rate (L/min) [0933 3 ] Oxygen Flow Rate (L/min) [0928 2 ] Oxygen Flow Rate (L/min) [0923 2 ] Oxygen Flow Rate (L/min) [0918 2 ] Oxygen Flow Rate (L/min) [0913 2 ] Oxygen Delivery Method [0933] Nasal Cannula Oxygen Delivery Method [0928] Nasal Cannula Oxygen Delivery Method [0923] Nasal Cannula Oxygen Delivery Method [0918] Nasal Cannula Oxygen Delivery Method [0913] Nasal Cannula Oxygen Delivery Method [1 ( Room Air Initial Baseline)] Oxygen Delivery Method Room Air Weight: 231 lb 7.766 oz Body Mass Index (BMI) 32.3 Intake & Output: Intake and Output for Last 24 Hours 09/01/22 09/02/22 09/03/22 23:59 23:59 23:59 Intake Total 1858.33 / 1858.33 2141.25 / 2361.25 1510 / 1510 Output Total 1300 / 1300 1590 / 1940 945 / 945 Balance 558.33 / 558.33 551.25 / 421.25 565 / 565 Lab / Micro Data 09/03/22 05:40 09/03/22 05:40 Labs: Laboratory Results - last 24 hr 09/02/22 06:39: APTT 42.9 H, Sodium 140, Potassium 3.5, Chloride 110 H, Carbon Dioxide 26.0, Anion Gap 4 L, BUN 47 H, Creatinine 2.25 H, Estim Creat Clear Calc 28.82, Est GFR (MDRD) Af Amer 37 L, Est GFR (MDRD) Non-Af 30 L, BUN/Creatinine Ratio 20.9 H, Glucose 123 H, Calcium 8.2 L, Total Bilirubin 1.60 H, AST 39 H, ALT 57, Alkaline Phosphatase 154 H, Total Protein 5.9 L, Albumin 2.3 L, Globulin 3.6, Albumin/Globulin Ratio 0.6 L, TSH 1.46 09/03/22 05:40: WBC 6.0, RBC 4.03 L, Hgb 12.8 L, Hct 38.4 L, MCV 95.3 H, MCH 31.8, MCHC 33.3, RDW Std Deviation 52.9 H, RDW Coeff of Sylwia 15.0 H, Plt Count 147 L, MPV 10.0, Immature Gran % (Auto) 1.500 H, Neut % (Auto) 71.9 H, Lymph % (Auto) 10.2 L, [place] % (Auto) 12.7 H, Eos % (Auto) 3.2, Baso % (Auto) 0.5, Absolute Neuts (auto) 4.3, Absolute Lymphs (auto) 0.61 L, Nucleated RBC % 0, Sodium 142, Potassium 3.3 L, Chloride 113 H, Carbon Dioxide 26.0, Anion Gap 3 L, BUN 36 H, Creatinine 1.76 H, Estim Creat Clear Calc 36.84, Est GFR (MDRD) Af Amer 48 L, Est GFR (MDRD) Non-Af 40 L, BUN/Creatinine Ratio 20.5 H, Glucose 119 H, Calcium 8.0 L, Total Bilirubin 1.30 H, AST 55 H, ALT 64 H, Alkaline Phosphatase 156 H, Total Protein 5.1 L, Albumin 1.8 L, Globulin 3.3, Albumin/Globulin Ratio 0.5 L Radiography Diagnostic Testing: Radiology Impression Abscess Drainage CT 09/02/22 07:09 IMPRESSION: Successful CT guided percutaneous cholecystostomy, as described above. The conscious sedation protocol was followed. Electronically Signed: Brian Peres MD at 9:52 EDT , Physical Exam Const oriented x3 Resp normal respiratory effort GI soft to palpation and non-tender Assessment & Plan Assessment/Plan (1) Acute cholecystitis: PLAN: Patient has acute cholecystitis treated with cholecystostomy tube due to the amount of inflammation and his comorbidities. The patient is doing well today and his white count is normal. He is tolerating regular diet. He may be discharged home on 7 days of Cipro and Flagyl and follow-up with me in 2 weeks. Kalyan Euceda MD Pager: [facility] [address] [place] [address], [address] [place] [phone] Office:
[2022-09-03] MEDS: Aspirin E.C. 81 MG Tablet PO (08:49)
[2022-09-03] MEDS: Potassium Chloride Oral Tablet 20 MEQ 40 MEQ PO (08:49)
[2022-09-03] MEDS: Multivitamins,Ther W-Minerals Tablet 1 TABLET PO (08:50)
[2022-09-03] MEDS: Glycerin/Hypromellose/PEG400 15 ml Bottle 1 DRP RIGHT EYE (08:52)
--- NOTE | 2022-09-03 09:23 | CASEMGMT ---
Received message from Kindra at [facility], pt will be seen on Sat for SOC pending appt with for follow up being completed.
[2022-09-03 09:41] VITALS: O2SAT 92
--- NOTE | 2022-09-03 10:35 | DS.PCM_ITS ---
Providers Date of Admission: 08/31/22 Date of Discharge: 09/04/22 Primary Care Physician: Dr. Wilbert Pradhan MD Consultations 08/31/22 22:01 Consult: General Surgery Routine Consulting Provider: Kalyan Euceda Reason for Consult: Acute cholecystitis EMERGENT Consult: Yes Notified: Yes Date Notified: 08/31/22 Time Notified: 21:38 Method of Notification: ED Physician Initiated Reason For Visit: ACUTE CHOLECYSTITIS, RENAL FAILURE Diagnosis Discharge Diagnosis (1) Acute cholecystitis: Status: Acute Code(s): K81.0 - Acute cholecystitis Plan #Acute cholecystitis * currently NPO. * general surgery on board. Recommends the cholecystostomy tube in light of patient;s KODY * To follow-up with general surgery on outpatient basis for elective cholecystec nori. * On IV Zosyn * cholecystostomy tube couldnt be inserted today because of him having received his eliquis the day before. For tube insertion today. * #KODY on CKD 3 * Creatinine has trended down further to 2.25. * continue gentle hydration with iVF. Encourage oral hydration once he is no longer NPO. * * #HYpertension: on metoprolol. #Hyperlipidemia: on statin, but is currently NPO so statin on hold #Afib: on eliquis. s/p Maze procedure. on metoprolol. HR elevated today in the 110s and 120s. Likely because he is NPO and hasnt received his meds. Resume metoprolol. #CAD: on aspirin, atorvastatin #Hypothyroidism: on synthroid #DEpression: on fluoxetine DVT prophylaxis: SCDs Medications at Discharge Home Medications apixaban 5 mg tablet (Eliquis) 5 mg PO BID blood thinner 11/07/18 atorvastatin 40 mg tablet 40 mg PO QHS cholesterol 11/07/18 pantoprazole 40 mg tablet,delayed release 40 mg PO DAILY gerd 11/07/18 trospium 20 mg tablet 20 mg PO BID bladder 07/18/19 carboxymethylcellulose sodium 1 % eye liquid gel drops 1 drp RIGHT EYE DAILY dry eyes 06/02/21 prednisolone acetate 1 % eye drops,suspension 1 drp LEFT EYE TID eye drops 06/02/21 acetaminophen 500 mg tablet 1,000 mg PO Q6H PRN pain 07/22/21 aspirin 81 mg tablet,delayed release (Adult Low Dose Aspirin) 81 mg PO DAILY antiplatelet 07/22/21 cyanocobalamin (vitamin B-12) 1,000 mcg tablet 1,000 mcg PO DAILY vitamin 07/22/21 potassium klor-con 20 meq PO DAILY potassium replacement 08/26/21 levothyroxine 25 mcg tablet 25 mcg PO DAILY thyroid 09/15/21 fluoxetine 20 mg capsule 40 mg PO DAILY mental health 11/30/21 metoprolol tartrate 50 mg tablet 50 mg PO BID heart 11/30/21 furosemide 40 mg tablet (Lasix) 60 mg PO DAILY water pill 12/16/21 [id number] 300 mcg-K 60 mcg-lycop 600 mcg-lutein 300 mcg tablet (Centrum Silver Men) 1 tab PO DAILY supplement 12/16/21 nitroglycerin 0.4 mg sublingual tablet 0.4 mg sublingual Q5M PRN Chest Pain #25 tabs 04/02/22 ascorbic acid (vitamin C) 250 mg tablet (Vitamin C) 250 mg PO DAILY supplement 05/22/22 magnesium oxide 420 mg tablet 420 mg PO DAILY supplement 05/22/22 ciprofloxacin HCl 500 mg tablet (Cipro) 500 mg PO Q12H 7 days #14 tabs 09/03/22 metronidazole 500 mg tablet 500 mg PO Q8H 7 days #21 tabs 09/03/22 Hospital Course Operations None Procedures - (cholecystostomy tube insertion) Summary of Care Provided Minutes Spent on Discharge: 48 Hospital Course: Patient is a 77-year-old male with a past medical history as outlined who was admitted through the ED on 08/31/2022 for complaint of generalized weakness. This was a second visit in 3 days for the same complaints. He had assisted nausea and vomiting and has gradually become weak and could not care for himself at home. CT of the abdomen was significant for acute cholecystitis. His creatinine was elevated at 4 and bilirubin was also elevated at 1.8. He was admitted and managed for acute cholecystitis. Patient had been on Eliquis for paroxysmal A-fib and this was held. General surgery reviewed him and did not think he was a candidate for emergent surgery in light of his KODY and patient having been on Eliquis. Plan was therefore for patient to have a cholecystostomy tube placed. He was started on IV Zosyn. Patient did have the cholecystostomy tube placed on 09/02/2022. His liver enzymes trended down and his creatinine also trended down significantly. Creatinine was 1.76 at time of discharge from a peak of 4.44 and with a baseline creatinine of around 1.58. Patient was discharged home on 09/03/2022, to follow-up with general surgery on outpatient basis for elective cholecystectomy in about 2 weeks after discharge. He was discharged on p.o. ciprofloxacin and p.o. metronidazole for 7 days. He is to follow-up with his primary care doctor and follow-up with general surgery as stated above. Patient seen and examined prior to discharge. He had no complaints and had an uneventful night. Review of systems otherwise negative. Labs and vitals reviewed. Home medication reviewed and reconciled. Physical Exam Const alert, oriented x3 and no apparent distress General Appearance: cooperative, comfortable, well kempt and well developed Orientation / Consciousness: awake HEENT normocephalic, head/scalp atraumatic, hearing grossly normal bilaterally and moist oral mucous membranes Mouth: oral and palatal mucosa normal Eyes PERRL, EOMs intact bilaterally and conjunctivae normal Neck no lymphadenopathy, supple and no JVD General: trachea midline Lymph Lymphatic: no lymphadenopathy noted and no lymphedema noted Resp normal respiratory effort, normal air movement and clear to auscultation bilaterally Cardio regular rate, regular rhythm, S1 normal heart sound, S2 normal heart sound and no murmurs GI normal to inspection, nondistended, normoactive bowel sounds and non-distended GI Narrative: cholecystostomy tube in place Extremity normal to inspection, full ROM, normal capillary refill, no clubbing, cyanosis or edema and no calf tenderness Skin no rashes or lesions noted General Skin Exam: no breakdown Neuro oriented x3, CN's II-XII intact bilaterally, moves all extremities, no focal motor deficits, no sensory deficits noted and deep tendon reflexes 2+ bilaterally Motor Exam: strength 5/5 throughout Psych thought process normal, cooperative and affect normal Appearance: appropriate Weight / BMI Weight Weight: 231 lb 7.766 oz Body Mass Index (BMI) 32.3 ABG / Lab / Microbiology Data 09/03/22 05:40 09/03/22 05:40 Laboratory: Laboratory Results - last 24 hr 09/03/22 05:40: WBC 6.0, RBC 4.03 L, Hgb 12.8 L, Hct 38.4 L, MCV 95.3 H, MCH 31.8, MCHC 33.3, RDW Std Deviation 52.9 H, RDW Coeff of Sylwia 15.0 H, Plt Count 147 L, MPV 10.0, Immature Gran % (Auto) 1.500 H, Neut % (Auto) 71.9 H, Lymph % (Auto) 10.2 L, Colbert % (Auto) 12.7 H, Eos % (Auto) 3.2, Baso % (Auto) 0.5, Absolute Neuts (auto) 4.3, Absolute Lymphs (auto) 0.61 L, Nucleated RBC % 0, Sodium 142, Potassium 3.3 L, Chloride 113 H, Carbon Dioxide 26.0, Anion Gap 3 L, BUN 36 H, Creatinine 1.76 H, Estim Creat Clear Calc 36.84, Est GFR (MDRD) Af Amer 48 L, Est GFR (MDRD) Non-Af 40 L, BUN/Creatinine Ratio 20.5 H, Glucose 119 H, Calcium 8.0 L, Total Bilirubin 1.30 H, AST 55 H, ALT 64 H, Alkaline Phosphatase 156 H, Total Protein 5.1 L, Albumin 1.8 L, Globulin 3.3, Alb umin/Globulin Ratio 0.5 L D/C Instructions Discharge Diet: Low fat / Low cholesterol Weight Bearing Status: Weight bearing as tolerated Call your doctor if you observe: Fever of 101 or Higher, Shortness of breath, Dizziness, Swelling in the ankles, Chest pain, Increased palpitations (irregular heartbeat) and Uncontrolled pain Meaningful Use Info Meaningful Use Diagnoses (Choose all that apply): None applicable Discharge Plan Admission Admit Date/Time: 08/31/22 21:33 Primary Reason for Your Visit: acute cholecystitis Attending Provider: Amy Espinosa Primary Care Provider: Wilbert Pradhan Chi Consulting Providers: Kalyan Euceda; Shola Mauricio Instructions Patient Instructions: Thierry Oreilly Drain Tube Dc, Post Op Drain Emptying Bang, SIMONE RN Procedural Sedation Discharge Orders/Prescriptions Prescriptions: New ciprofloxacin HCl [Cipro] 500 mg tablet 500 mg PO Q12H 7 Days Qty: 14 0RF metronidazole 500 mg tablet 500 mg PO Q8H 7 Days Qty: 21 0RF Continued pantoprazole 40 mg tablet,delayed release (DR/EC) 40 mg PO DAILY Eliquis 5 mg tablet 5 mg PO BID atorvastatin 40 mg tablet 40 mg PO QHS trospium 20 mg tablet 20 mg PO BID Rx Instructions: administer on an empty stomach levothyroxine 25 mcg tablet 25 mcg PO DAILY potassium klor-con 20 meq PO DAILY acetaminophen 500 mg tablet 1,000 mg PO Q6H PRN (Reason: pain) aspirin [Adult Low Dose Aspirin] 81 mg tablet,delayed release (DR/EC) 81 mg PO DAILY cyanocobalamin (vitamin B-12) 1,000 mcg tablet 1,000 mcg PO DAILY nitroglycerin 0.4 mg tablet, sublingual 0.4 mg sublingual Q5M PRN (Reason: Chest Pain) Qty: 25 3RF Rx Instructions: do not exceed 3 doses per episode prednisolone acetate 1 % Drops,Suspension 1 drp LEFT EYE TID carboxymethylcellulose sodium 1 % Drops, Liquid Gel 1 drp RIGHT EYE DAILY fluoxetine 20 mg capsule 40 mg PO DAILY Patient Comments: TAKE 1 CAPSULE BY MOUTH ONCE DAILY IN THE MORNING FOR 90 DAYS metoprolol tartrate 50 mg tablet 50 mg PO BID Centrum Silver Men 300-600-300 mcg Tablet 1 tab PO DAILY furosemide [Lasix] 40 mg tablet 60 mg PO DAILY magnesium oxide 420 mg Tablet 420 mg PO DAILY ascorbic acid (vitamin C) [Vitamin C] 250 mg Tablet 250 mg PO DAILY Referrals / Follow Up: Kalyan Euceda MD [Med Staff - Active Staff] - Within 2 Weeks Wilbert Pradhan Chi, MD [Primary Care Provider] - 09/03/22 1:40 pm Disposition Disposition (needs filled in before D/C Order can be placed): Home, Self Care Charges/Coding Visit Charges Inpatient E&M: 82042 Disch Hosp >30min
--- NOTE | 2022-09-03 11:11 | CASEMGMT ---
Addendum entered by Ann Marie Guadalupe 09/03/22 11:49: Kindra at [facility] aware of pt dc today and appt with . Addendum entered by Ann Marie Guadalupe 09/03/22 11:49: TONY GILLESPIE into pt room, pt aware of appt with , liz transportation home and when HHC will start. Pt denies any questions or concerns at this time and is agreeable to the plan. Original Note: Spoke with pt nurse, pt to be ready to be dc'd around lunchtime. TC to 's office, made appt for 1:40pm for pt to go straight to appt from hospital. TC to [facility] transportation, pt van able to take pt home at 3pm. Pt will need to be at main entrance. 's office aware that pt will need to be at main entrance at 3pm. Horticulture Professor states that the volunteers will be called to do this by their office. Pt nurses updated on appt time.
[2022-09-03] MEDS: Potassium Chloride Oral Tablet 20 MEQ PO (11:20)
[2022-09-03] MEDS: Furosemide 40 MG Tablet 60 MG PO (11:20)
[2022-09-03] MEDS: Pantoprazole Sodium 40 MG Tablet PO (11:21)
[2022-09-03] MEDS: FLUoxetine 20 MG Capsule 40 MG PO (11:21)
[2022-09-03] MEDS: Magnesium Chloride 64 MG Delay Rel.Tablet 128 MG PO (11:21)
[2022-09-03] MEDS: Ascorbic Acid 500 MG Tablet 250 MG PO (11:22)
[2022-09-03] MEDS: Cyanocobalamin 500 MCG Tablet 1000 MCG PO (11:22)
[2022-09-03 11:28] VITALS: PULSE 76
[2022-09-03] MEDS: Tolterodine Tartrate 2 MG CAP.SA PO (11:28)
[2022-09-03] MEDS: Metoprolol Tartrate 50 MG Tablet PO (11:28)
[2022-09-03 13:25] VITALS: BP 127/78; PULSE 76; RESP 18; TEMP 36.6; O2SAT 98
--- NOTE | 2022-09-03 13:51 | PHA.DC.MC.R ---
Pharmacy [facility] Pharmacy Service has performed discharge medication reconciliation and counseling for this patient. The patient was counseled on the following discharge medications and changes in medications for homegoing were reviewed. 1. CIPRO 2. FLAGYL The Reason for Use, instructions for use, and potential side effects were reviewed for all new medications. The patient's questions regarding all of their medications were answered. The patient was able to verbally demonstrate an understanding of their discharge medications. The patient's discharge medication list was reviewed for discrepancies and discrepancies were resolved. Patient counselled by Jermaine Perry PharmD Candidate Medications at Discharge Home Medications apixaban 5 mg tablet (Eliquis) 5 mg PO BID blood thinner 11/07/18 atorvastatin 40 mg tablet 40 mg PO QHS cholesterol 11/07/18 pantoprazole 40 mg tablet,delayed release 40 mg PO DAILY gerd 11/07/18 trospium 20 mg tablet 20 mg PO BID bladder 07/18/19 carboxymethylcellulose sodium 1 % eye liquid gel drops 1 drp RIGHT EYE DAILY dry eyes 06/02/21 prednisolone acetate 1 % eye drops,suspension 1 drp LEFT EYE TID eye drops 06/02/21 acetaminophen 500 mg tablet 1,000 mg PO Q6H PRN pain 07/22/21 aspirin 81 mg tablet,delayed release (Adult Low Dose Aspirin) 81 mg PO DAILY antiplatelet 07/22/21 cyanocobalamin (vitamin B-12) 1,000 mcg tablet 1,000 mcg PO DAILY vitamin 07/22/21 potassium klor-con 20 meq PO DAILY potassium replacement 08/26/21 levothyroxine 25 mcg tablet 25 mcg PO DAILY thyroid 09/15/21 fluoxetine 20 mg capsule 40 mg PO DAILY mental health 11/30/21 metoprolol tartrate 50 mg tablet 50 mg PO BID heart 11/30/21 furosemide 40 mg tablet (Lasix) 60 mg PO DAILY water pill 12/16/21 [id number] 300 mcg-K 60 mcg-lycop 600 mcg-lutein 300 mcg tablet (Centrum Silver Men) 1 tab PO DAILY supplement 12/16/21 nitroglycerin 0.4 mg sublingual tablet 0.4 mg sublingual Q5M PRN Chest Pain #25 tabs 04/02/22 ascorbic acid (vitamin C) 250 mg tablet (Vitamin C) 250 mg PO DAILY supplement 05/22/22 magnesium oxide 420 mg tablet 420 mg PO DAILY supplement 05/22/22 ciprofloxacin HCl 500 mg tablet (Cipro) 500 mg PO Q12H 7 days #14 tabs 09/03/22 metronidazole 500 mg tablet 500 mg PO Q8H 7 days #21 tabs 09/03/22
== END 2022-09-03 13:35 | disposition home or self-care (01) | DRG 445 ==
LOC: ED 21:31 → MS3 09-01 00:18
PROVIDERS: Anesthesiology; Admitting Provider Family Medicine; Emergency Provider Emergency Medicine; PCP Family Medicine Geriatric Medicine; Visit Provider Student in an Organized Health Care Education/Training Program
DX: K81.0 Acute cholecystitis (principal); N17.9 Acute kidney failure, unspecified; N18.30 Chronic kidney disease, stage 3 unspecified; I48.0 Paroxysmal atrial fibrillation; I25.10 Atherosclerotic heart disease of native coronary artery without angina pectoris; I12.9 Hypertensive chronic kidney disease with stage 1 through stage 4 chronic kidney disease, or unspecified chronic kidney disease; K21.00 Gastro-esophageal reflux disease with esophagitis, without bleeding; E78.00 Pure hypercholesterolemia, unspecified; E03.9 Hypothyroidism, unspecified; F32.A Depression, unspecified; Z95.1 Presence of aortocoronary bypass graft; Z95.5 Presence of coronary angioplasty implant and graft; Z79.01 Long term (current) use of anticoagulants; Z79.899 Other long term (current) drug therapy
CPT/HCPCS: 36415; 70450; 71045; 74176; 75989; 80048; 80053; 80076; 81001; 83605; 83690; 83735; 83880; 84443; 84484; 85025; 85027; 85610; 85730; 93005; 96372; 96374; 97162; 97166; 97530; 97535; 99156; 99285; J7030; J7050; A4216; J2405

== ENCOUNTER 2022-10-05 14:00 | Outpatient (RCR) | payer MEDICARE, OTHER, SELFPAY ==
[2021-09-17 08:31] VITALS: BMI 38.4
[2022-09-19 00:06] VITALS: BP 98/65; PULSE 103; RESP 16; TEMP 36.2
[2022-09-21 14:39] VITALS: BP 95/65; PULSE 107; RESP 18; TEMP 36.9
--- NOTE | 2022-09-21 16:25 | PN.PCM_ITS ---
History of Present Illness Date of Service: 09/21/22 Chief Complaint: Nonhealing ulcer left anteromedial lower leg. History of Wound: 76-year-old male presented to the wound care center for treatment of a recurrent ulcer left anteromedial lower leg. He does not recall any injury to the area. 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 He reports that this ulcer is in the same area as a prior retained suture from this vein harvesting. The retained suture was removed and the associated ulcer initially healed, but has since recurred. He has atrial fibrillation and is on Eliquis. He wears compression stockings. He had a left tib-fib x-ray on 07/22/22. It showed intact total knee arthroplasty and mild degenerative changes of the ankle with soft tissue swelling. He has venous insufficiency with ulceration. Had Venous Doppler study on 07/22/22. It showed no evidence of bilateral lower extremity deep vein thrombosis. Positive for reflux in the right below knee great saphenous vein, small saphenous vein. Positive for reflux in the left small saphenous vein. Had noninvasive arterial doppler study on 08/24/22. It showed minimal arterial occlusive disease at ankle level on the right. There is mild arterial occlusive disease at digital level on the right. There is evidence of arterial calcification at ankle level on the left. There is no evidence of significant arterial occlusive disease in the left lower extremity. A wound culture was done on 08/20/22. It was positive for Staphyloccus aureus and Pseudomonas aeroginosa. Will start him on Levaquin. Today he denies fever. His appetite is good. Progress of Wound: mild improvement. Objective Data Objective Data Vital Signs: Vital Signs Temp Pulse Resp BP 98.5 F 107 H 18 95/65 09/21/22 14:39 09/21/22 14:39 09/21/22 14:39 09/21/22 14:39 Lab / Micro Data Attestation: I reviewed the patient's lab results. Micro: Wound Culture from 08/20/22 - positive for Staphylococcus aureus and Pseudomonas aeroginosa. Charges/Coding Procedures Integumentary [id number]: [id number] Hien subq tissue 20 sq cm/< (ICD-10 - L97.922, I87.2, M79.8 9, I83.12, Z79.01) Debridement Note Debridement Note Wound debrided: #2 Left anteromedial lower leg. Laterality: Left Wound Grade/Stage: 2. Type of Debridement: Excisional debridement Anesthesia Used: 5% Lidocaine Gel Depth: Down to and including healthy tissue and in the subcutaneous layer Percentage of wound debrided: 100 Instrument Used: 3mm curette Tissue Removed: subcutaneous tissue. Severity: Fat Layer Exposed Amount of bleeding with debridement: Mild Bleeding Controlled with: Pressure and Compression and gauze Patient tolerated procedure: Patient tolerated procedure well Post-Debridement Measurements and Additional Note: Post-Debridement Measurements/Treatment - Nurse 1 - General Ulcer Assessment Start: 09/21/22 14:39 Freq: Status: Active Protocol: SHARRI Activity Type Activity Date Activity User E-sign Co-sign Detail Recorded Client Recorded Date Recorded By Document 09/21/22 14:39 PL [id number] 09/21/22 14:40 PL 09/21/22 14:39 - Today's Visit Information Type of service Follow-up Visit (Physician/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 Any new allergies or adverse reactions No Had a fall/change in ADL's that may No increase risk of falls Signs or symptoms of abuse and/or No neglect since last visit Have you been in the hospital since your Yes last visit? Has dressing in place as prescribed No Has compression in place as prescribed No Has offloadiing in place as prescribed No Experienced any changes in pain level or No management Pain Scale: 0-10 Numeric Is Patient Pain Free? Yes - Nurse 2 - General Ulcer CM Notes Start: 09/21/22 14:39 Freq: Status: Active Protocol: Activity Type Activity Date Activity User E-sign Co-sign Detail Recorded Client Recorded Date Recorded By Document 09/21/22 15:04 ANGELICA [id number] 09/21/22 15:06 ANGELICA 09/21/22 15:04 Wound Center Nurse 2 #2- L MEDIAL VASQUES -Time 15:04 -Correct Patient Yes -Correct Side, Site, Position Yes -Correct Procedure Yes -Procedure Performed Yes -Type of Procedure Debridement -Clinical Debridement Subcutaneous -Tissue Removed Subcutaneous -Post Debridement (cm) - Length 0.4 -Post Debridement (cm) - Width 0.4 -Post Debridement (cm) - Depth 0.4 -Total Square (Post) (cm) 0.16 -Area of Debridement (cm) - Length 0.4 -Area of Debridement (cm) - Width 0.4 -Total Square (Area) (cm) 0.16 -Tunneling No -Undermining/Tunneling No -Circular Undermining No -Wound/Ulcer Outcome Not Healed -Ulcer Cleansing Rinsed/ Irrigated with Saline -Foul Odor after Cleansing No -Bioengineered Tissue No -Bleeding Controlled with Pressure -Treatment Response Procedure Tolerated Well -Offloading No -Debridement - Subq, 1st 20sq cm Yes Pain Scale: 0-10 Numeric Is Patient Pain Free? Yes - Nurse 3 - General Ulcer D/C NN Start: 09/21/22 14:39 Freq: Status: Active Protocol: Activity Type Activity Date Activity User E-sign Co-sign Detail Recorded Client Recorded Date Recorded By Document 09/21/22 15:23 PL [id number] 09/21/22 15:24 PL 09/21/22 15:23 Wound Care Center Nurse 3 #2- L MEDIAL VASQUES -Ulcer Cleansing Rinsed/ Irrigated with Saline -Foul Odor after Cleansing No -Primary Dressing Applied Mepilex Border -Other Dressing Promogran -Mepilex Border 1 Pain Scale: 0-10 Numeric Is Patient Pain Free? Yes - Visit Discharge Discharge Condition Stable Ambulatory Status Ambulatory Transportation Private Auto Assessment/Plan Assessment/Plan (1) Non-pressure chronic ulcer of left lower leg with fat layer exposed: CODE(S): L97.922 - Non-pressure chronic ulcer of unspecified part of left lower leg with fat layer exposed PLAN: Left anteromedial lower leg (2) Chronic venous insufficiency of lower extremity: CODE(S): I87.2 - Venous insufficiency (chronic) (peripheral) (3) Lipodermatosclerosis of left lower extremity: CODE(S): I83.12 - Varicose veins of left lower extremity with inflammation (4) Left leg swelling: CODE(S): M79.89 - Other specified soft tissue disorders (5) Chronic anticoagulation: CODE(S): Z79.01 - skilled nursing (current) use of anticoagulants PLAN: Eliquis for atrial fibrillation PLAN: Plan Medical records reviewed. Labs and x-rays and vascular studies reviewed. Patient has nonhealing ulcer left anteromedial leg with some undermining superiorly. Attempts were made to unroof it here at the Wound Center. It was difficult because of the risk of bleeding secondary to being on Eliquis for atrial fibrillation. He has venous insufficiency which can lead to ulceration especially with history of swelling of the left leg. With surrounding lipodermatosclerosis, debridement is difficult at the Wound Center secondary to pain and bleeding. A wound culture was done on 08/20/22. It was positive for Staphylococcus aureus and Pseudomonas aeroginosa. Will start him on Levaquin. Continue Promogran for wound care. Compression is paramount to keep the swelling under control. He wears compress ion stockings (20-30 mmHg). Chronic swelling can aggravate the venous insufficiency leading to ulceration and surrounding brawny discoloration (lipodermatosclerosis). Chronic pain can be an issue making debridement at the Wound Center under topical Lidocaine problematic. Periodic maintenance operative debridements is necessary to heal this ulcer so my recommendation is to proceed with operative debridement followed by wound care with the VAC. Surgery will be under general anesthesia with a surgical observation overnight stay in the hospital. After 4-6 weeks the VAC may be changed to daily Silver dressing changes. If there is a plateau in the healing process, can proceed with delayed closure and skin grafting. He had Noninvasive Arterial Doppler study done on 08/24/22. It showed minimal arterial occlusive disease at ankle level on the right. There is mild arterial occlusive disease at digital level on the right. There is evidence of arterial calcification at ankle level on the left. There is no evidence of significant arterial occlusive disease in the left lower extremity. So the blood flow is adequate to heal the ulcer with a skin graft in the future if need be. Also a 3M two layer wrap can then be used to help with the localized swelling which improves the healing of the ulcer. Anticipate increased metabolic demands from this chronic ulceration. Will check a Prealbumin and encourage nutritional supplementation with protein to help the healing process. Patient was informed of the risks and complications of the procedure including alternatives to surgery. These were discussed with the patient personally. Patient voices understanding and wishes to proceed. Potential risks and complications included but not inclusive of bleeding, infection, seroma, hematoma, bruising, swelling loss of sensation to skin, wound breakdown, need for wound care, poor scarring, poor aesthetic outcome, intra operative cardiac or neurologic events, DVT, PE, and reaction to anesthesia. Patient states he needs his gall bladder removed. It is scheduled for later this month. Will plan on scheduling the operative debridement after his recovery from that gall bladder surgery. Followup 2 weeks.
[2022-10-05 13:44] VITALS: BP 110/78; PULSE 103; RESP 18; TEMP 36.2
--- NOTE | 2022-10-05 16:17 | PN.PCM_ITS ---
History of Present Illness Date of Service: 10/05/22 Chief Complaint: Nonhealing ulcer left anteromedial lower leg. History of Wound: 76-year-old male presented to the wound care center for treatment of a recurrent ulcer left anteromedial lower leg. He does not recall any injury to the area. 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 He reports that this ulcer is in the same area as a prior retained suture from this vein harvesting. The retained suture was removed and the associated ulcer initially healed, but has since recurred. He has atrial fibrillation and is on Eliquis. He wears compression stockings. He had a left tib-fib x-ray on 07/22/22. It showed intact total knee arthroplasty and mild degenerative changes of the ankle with soft tissue swelling. He has venous insufficiency with ulceration. Had Venous Doppler study on 07/22/22. It showed no evidence of bilateral lower extremity deep vein thrombosis. Positive for reflux in the right below knee great saphenous vein, small saphenous vein. Positive for reflux in the left small saphenous vein. Had noninvasive arterial doppler study on 08/24/22. It showed minimal arterial occlusive disease at ankle level on the right. There is mild arterial occlusive disease at digital level on the right. There is evidence of arterial calcification at ankle level on the left. There is no evidence of significant arterial occlusive disease in the left lower extremity. A wound culture was done on 08/20/22. It was positive for Staphyloccus aureus and Pseudomonas aeroginosa. We started him on Levaquin. He doesn't recall picking up those antibiotics. Will check with the Pharmacy. Will reorder them. Today he denies fever. His appetite is good. Progress of Wound: mild improvement. Objective Data Objective Data Vital Signs: Vital Signs Temp Pulse Resp BP 97.2 F L 103 H 18 110/78 10/05/22 13:44 10/05/22 13:44 10/05/22 13:44 10/05/22 13:44 Lab / Micro Data Attestation: I reviewed the patient's lab results. Micro: Wound Culture from 08/20/22 - positive for Staphylococcus aureus and Pseudomonas aeroginosa. Charges/Coding Procedures Integumentary [id number]: [id number] Hien subq tissue 20 sq cm/< (ICD-10 - L97.922, I87.2, M79.89, I83.12, Z79.01, A49.8) Debridement Note Debridement Note Wound debrided: #2 Left anteromedial lower leg. Laterality: Left Wound Grade/Stage: 2. Type of Debridement: Excisional debridement Anesthesia Used: 5% Lidocaine Gel Depth: Down to and including healthy tissue and in the subcutaneous layer Percentage of wound debrided: 100 Instrument Used: 3mm curette Tissue Removed: subcutaneous tissue. Severity: Fat Layer Exposed Amount of bleeding with debridement: Mild Bleeding Controlled with: Pressure and Compression and gauze Patient tolerated procedure: Patient tolerated procedure well Post-Debridement Measurements and Additional Note: Post-Debridement Measurements/Treatment - Nurse 1 - General Ulcer Assessment Start: 09/21/22 14:39 Freq: Status: Active Protocol: SHARRI Activity Type Activity Date Activity User E-sign Co-sign Detail Recorded Client Recorded Date Recorded By Document 09/21/22 14:39 PL [id number] 09/21/22 14:40 PL Document 10/05/22 13:44 PL [id number] 10/05/22 13:46 PL 09/21/22 10/05/22 14:39 13:44 - Today's Visit Information Type of service Follow-up Visit Follow-up Visit (Physician/PEER FINANCIAL COUNSELOR (Physician/PEER FINANCIAL COUNSELOR ) ) Arrival Mode Walker Ambulatory Transfer Assistance None None Patient Identification Verified (Name & Yes Yes ) Patient Requires Transmission-Based No No Precautions Safety Precautions NA Vital Signs Temperature (97.8 F-99.1 F) 98.5 F 97.2 F L Temperature Source Temporal Temporal Pulse Rate (60-100) 107 H 103 H Respiratory Rate (12-18) 18 18 Blood Pressure (90/60-120/80) 95/65 110/78 Blood Pressure Mean (mm Hg) 75 88 History Since Last Visit- (Skip if this is Patient's initial visit) Have you changed medications since your No No last visit? Any new allergies or adverse reactions No No Had a fall/change in ADL's that may No No increase risk of falls Signs or symptoms of abuse and/or No No neglect since last visit Have you been in the hospital since your Yes No last visit? Has dressing in place as prescribed No Yes Has compression in place as prescribed No No Has offloadiing in place as prescribed No No Experienced any changes in pain level or No No management Pain Scale: 0-10 Numeric Is Patient Pain Free? Yes Yes WC - Nurse 1 - General Ulcer Measurement Start: 09/21/22 14:39 Freq: Status: Active Protocol: Activity Type Activity Date Activity User E-sign Co-sign Detail Recorded Client Recorded Date Recorded By Document 10/05/22 13:44 PL [id number] 10/05/22 13:46 PL 10/05/22 13:44 Wound Center Nurse 1 #2- L MEDIAL VASQUES -Current Size (cm) - Length 0.1 -Current Size (cm) - Width 0.1 -Current Size (cm) - Depth 0.1 -Total Square Cm 0.01 Point of measurement (cm from the medial 40 instep) Point of Measurement (cm from the medial 27 instep) WC - Nurse 2 - General Ulcer CM Notes Start: 09/21/22 14:39 Freq: Status: Active Protocol: Activity Type Activity Date Activity User E-sign Co-sign Detail Recorded Client Recorded Date Recorded By Document 09/21/22 15:04 [id number] 09/21/22 15:06 Document 10/05/22 14:23 [id number] 10/05/22 14:27 09/21/22 10/05/22 15:04 14:23 Wound Center Nurse 2 #2- L MEDIAL VASQUES -Time 15:04 14:26 -Correct Patient Yes Yes -Correct Side, Site, Position Yes Yes -Correct Procedure Yes Yes -Procedure Performed Yes Yes -Type of Procedure Debridement Debridement -Clinical Debridement Subcutaneous Subcutaneous -Tissue Removed Subcutaneous Subcutaneous -Post Debridement (cm) - Length 0.4 0.3 -Post Debridement (cm) - Width 0.4 0.3 -Post Debridement (cm) - Depth 0.4 0.2 -Total Square (Post) (cm) 0.16 0.09 -Area of Debridement (cm) - Length 0.4 0.3 -Area of Debridement (cm) - Width 0.4 0.3 -Total Square (Area) (cm) 0.16 0.09 -Tunneling No No -Undermining/Tunneling No No -Circular Undermining No No -Wound/Ulcer Outcome Not Healed Not Healed -Ulcer Cleansing Rinsed/ Rinsed/ Irrigated with Irrigated with Saline Saline -Foul Odor after Cleansing No No -Bioengineered Tissue No No -Bleeding Controlled with Pressure Pressure -Treatment Response Procedure Procedure Tolerated Well Tolerated Well -Offloading No No -Debridement - Subq, 1st 20sq cm Yes Yes Pain Scale: 0-10 Numeric Is Patient Pain Free? Yes Yes - Nurse 3 - General Ulcer D/C NN Start: 09/21/22 14:39 Freq: Status: Active Protocol: Activity Type Activity Date Activity User E-sign Co-sign Detail Recorded Client Recorded Date Recorded By Document 09/21/22 15:23 PL [id number] 09/21/22 15:24 PL Document 10/05/22 14:35 [facility] [id number] 10/05/22 14:36 [facility] 09/21/22 10/05/22 15:23 14:35 Wound Care Center Nurse 3 #2- L MEDIAL VASQUES -Ulcer Cleansing Rinsed/ Rinsed/ Irrigated with Irrigated with Saline Saline -Foul Odor after Cleansing No No -Primary Dressing Applied Mepilex Border -Other Dressing Promogran promogran -Primary Dressing Covered/Secured with Dry Gauze, Secured with Tape -Mepilex Border 1 ble -Other pts own stockings applied Treatment Response Procedure Tolerated Well Pain Scale: 0-10 Numeric Is Patient Pain Free? Yes Yes - Visit Discharge Discharge Condition Stable Ambulatory Status Ambulatory Transportation Private Auto Assessment/Plan Assessment/Plan (1) Non-pressure chronic ulcer of left lower leg with fat layer exposed: CODE(S): L97.922 - Non-pressure chronic ulcer of unspecified part of left lower leg with fat layer exposed PLAN: Left anteromedial lower leg (2) Chronic venous insufficiency of lower extremity: CODE(S): I87.2 - Venous insufficiency (chronic) (peripheral) (3) Lipodermatosclerosis of left lower extremity: CODE(S): I83.12 - Varicose veins of left lower extremity with inflammation (4) Left leg swelling: CODE(S): M79.89 - Other specified soft tissue disorders (5) Chronic anticoagulation: CODE(S): Z79.01 - terminal carman (current) use of anticoagulants PLAN: Eliquis for atrial fibrillation (6) Pseudomonas aeruginosa infection: CODE(S): A49.8 - Other bacterial infections of unspecified site PLAN: Plan Patient has nonhealing ulcer left anteromedial leg with some undermining superiorly. Attempts were made to unroof it here at the Wound Center. It was difficult because of the risk of bleeding secondary to being on Eliquis for atrial fibrillation. He has venous insufficiency which can lead to ulceration especially with history of swelling of the left leg. With surrounding lipodermatosclerosis, debridement is difficult at the Wound Center secondary to pain and bleeding. A wound culture was done on 08/20/22. It was positive for Staphylococcus aureus and Pseudomonas aeroginosa. He was started on Levaquin. Patient states he doesn't recall picking up the antibiotic. Will call his Pharmacy and reorder the Levaquin. Continue Promogran for wound care. Compression is paramount to keep the swelling under control. He wears compression stockings (20-30 mmHg). Chronic swelling can aggravate the venous insufficiency leading to ulceration and surrounding brawny discoloration (lipodermatosclerosis). Chronic pain can be an issue making debridement at the Wound Center under topical Lidocaine problematic. Periodic maintenance operative debridements is necessary to heal this ulcer so my recommendation is to proceed with operative debridement followed by wound care with the VAC. Surgery will be under general anesthesia with a surgical observation overnight stay in the hospital. After 4-6 weeks the VAC may be changed to daily Silver dressing changes. If there is a plateau in the healing process, can proceed with delayed closure and skin grafting. He had Noninvasive Arterial Doppler study done on 08/24/22. It showed minimal arterial occlusive disease at ankle level on the right. There is mild arterial occlusive disease at digital level on the right. There is evidence of arterial calcification at ankle level on the left. There is no evidence of significant arterial occlusive disease in the left lower extremity. So the blood flow is adequate to heal the ulcer with a skin graft in the future if need be. Also a 3M two layer wrap can then be used to help with the localized swelling which improves the healing of the ulcer. Anticipate increased metabolic demands from this chronic ulceration. Will check a Prealbumin and encourage nutritional supplementation with protein to help the healing process. Patient was informed of the risks and complications of the procedure including alternatives to surgery. These were discussed with the patient personally. Patient voices understanding and wishes to proceed. Potential risks and complications included but not inclusive of bleeding, infection, seroma, hematoma, bruising, swelling loss of sensation to skin, wound breakdown, need for wound care, poor scarring, poor aesthetic outcome, intra operative cardiac or neurologic events, DVT, PE, and reaction to anesthesia. Patient states he needs his gall bladder removed. It is scheduled for later this month. Will plan on scheduling the operative debridement after his recovery from that gall bladder surgery. Followup 2 weeks.
== END 2022-10-08 23:59 | disposition home or self-care (01) ==
LOC: WC 14:00
PROVIDERS: PCP Family Medicine Geriatric Medicine; Referring Provider Family Medicine Geriatric Medicine; Visit Provider Surgery
DX: I83.222 Varicose veins of left lower extremity with both ulcer of calf and inflammation (principal); L97.822 Non-pressure chronic ulcer of other part of left lower leg with fat layer exposed; I48.91 Unspecified atrial fibrillation; Z96.659 Presence of unspecified artificial knee joint; M17.10 Unilateral primary osteoarthritis, unspecified knee; Z79.01 Long term (current) use of anticoagulants; M79.9 Soft tissue disorder, unspecified
CPT/HCPCS: 11042

== ENCOUNTER 2022-10-07 13:41 | Observation (INO) | payer MEDICARE, OTHER, SELFPAY ==
[2021-09-17 08:31] VITALS: BMI 38.4
[2022-10-02 14:32] LABS: Hemoglobin 14.1 g/dL (13.0-16.5); Mean Corp Hgb Conc 32.8 g/dL (32-36); Mean Corpuscular Hgb 32.3 pg (27.0-32.0); Mean Corpuscular Volume 98.4 fL (80-94); Mean Platelet Vol. 9.6 fl (6.2-12.0); Platelet Count 154 K/mm3 (150-450); RBC Distribution Width CV 15.2 % (11.6-14.6); RBC Distribution Width SD 55.6 fl (35.1-43.9); Red Blood Count 4.37 M/mm3 (4.6-6.2); White Blood Count 7.4 K/mm3 (4.4-11.0)
[2022-10-02 14:55] LABS: Anion Gap 3 (5-15); BUN 24 mg/dL (7-18); BUN/Creat Ratio 15.4 RATIO (10-20); Calcium,Total 8.8 mg/dL (8.5-10.1); Chloride 110 mmol/L (98-107); Creatinine, Serum 1.56 mg/dL (0.70-1.30); EST Glomerular Filtration Rate 46 mL/min (>60); Est Glom Filt Rate - Afr Amer 56 mL/min (>60); Glucose 94 mg/dL (74-106); Potassium 4.2 mmol/L (3.5-5.1); Sodium Level 140 mmol/L (136-145); Thyroid Stim Hormone (TSH) 3.33 uIU/mL (0.358-3.74)
[2022-10-07] VITALS (14 sets, daily range): BP systolic 93–134; BP diastolic 61–97; PULSE 63–85; RESP 14–20; TEMP 35.9–36.9; O2SAT 92–100; BMI 32.7
--- NOTE | 2022-10-07 | GALL_PTH ---
PATIENT: ERICKA SHELDON LOC: MS3 U#:[id number] AGE/SX: 77/M ROOM: [facility] RE10/07/[address]: Dr. Kalyan Euceda MD : 1945 BED: 1 DIS: 10/08/2022 SPEC #: [id number] RECD: 10/07/22 15:19 STATUS: FRANK MATSON #: [id number] FREDY: 10/07/22 00:[address]: Kalyan Euceda DEPT: SURGICAL PATHOLOGY RECD BY: Eduard Osorio ENTERED: 10/08/22 09:33 SP TYPE: CARLOS ROE DR: MD Dr. Wilbert Tariq Chi, MD Tissues: Gallbladder, NOS Procedures: Surgery Specimen Level III HEADER OPERATION: Laparoscopic cholecystectomy with IOC PRE-OP DIAGNOSIS: Acute cholecystitis TISSUE SUBMITTED: Gallbladder MICROSCOPIC DIAGNOSIS Gallbladder, cholecystectomy: Acute and chronic ulcerated cholecystitis and cholelithiasis. SJ:manohar 10/09/2022 MICROSCOPIC DESCRIPTION Slides are reviewed. GROSS DESCRIPTION Received is one container labeled with the patient's name and designated gallbladder. The specimen consists of a gallbladder measuring 7.0 cm in length and up to 4.0 cm in diameter. The external surface is pink-pham, smooth and glistening for the most part. Focally it is granular, hemorrhagic and contains cautery artifact. The gallbladder does not contain any bile and contains one ovoid, black stone measuring 1.5 cm in greatest dimension. The mucosa is bile-stained and without any mass lesions. The distal wall of the gallbladder shows markedly thickened gallbladder wall. No mass lesion is identified. The gallbladder wall measures up to 1.0 cm in thickness. Ribbon Cleaner sections from the gallbladder and the cystic duct are submitted in three cassettes. Cassettes 2 & 3 contain the thickened wall area of the gallbladder. / COREY:manohar 10/08/2022 TC:2 CPT: 20801
[2022-10-07] MEDS: Lactated Ringers 1,000 ML 15 ML IV ×2 (10:37→13:38)
--- NOTE | 2022-10-07 11:05 | HP.PCM_ITS ---
History and Physical Date of Admission: 10/07/22 Intake Vital Signs 08/31/2321:10 Height 5 ft 11 in Intake Visit Reasons: CHOLECYSTITS - Chief Complaint: cholecystitis 09/03 Is patient in pain?: No Allergies No Known Allergies Allergy (Verified 09/17/22 10:12) Medications apixaban 5 mg tablet (Eliquis) 5 mg PO BID blood thinner 11/07/18 [History Confirmed 09/17/22] atorvastatin 40 mg tablet 40 mg PO QHS cholesterol 11/07/18 [History Confirmed 09/17/22] pantoprazole 40 mg tablet,delayed release 40 mg PO DAILY gerd 11/07/18 [History Confirmed 09/17/22] trospium 20 mg tablet 20 mg PO BID bladder 07/18/19 [History Confirmed 09/17/22] carboxymethylcellulose sodium 1 % eye liquid gel drops 1 drp RIGHT EYE DAILY dry eyes 06/02/21 [History Confirmed 09/17/22] prednisolone acetate 1 % eye drops,suspension 1 drp LEFT EYE TID eye drops 06/02/21 [History Confirmed 09/17/22] acetaminophen 500 mg tablet 1,000 mg PO Q6H PRN pain 07/22/21 [History Confirmed 09/17/22] aspirin 81 mg tablet,delayed release (Adult Low Dose Aspirin) 81 mg PO DAILY antiplatelet 07/22/21 [History Confirmed 09/17/22] cyanocobalamin (vitamin B-12) 1,000 mcg tablet 1,000 mcg PO DAILY vitamin 07/22/21 [History Confirmed 09/17/22] potassium klor-con 20 meq PO DAILY potassium replacement 08/26/21 [History Confirmed 09/17/22] levothyroxine 25 mcg tablet 25 mcg PO DAILY thyroid 09/15/21 [History Confirmed 09/17/22] fluoxetine 20 mg capsule 40 mg PO DAILY mental health 11/30/21 [History Confirmed 09/17/22] metoprolol tartrate 50 mg tablet 50 mg PO BID heart 11/30/21 [History Confirmed 09/17/22] furosemide 40 mg tablet (Lasix) 60 mg PO DAILY water pill 12/16/21 [History Confirmed 09/17/22] ftjqakul-[id number] 300 mcg-K 60 mcg-lycop 600 mcg-lutein 300 mcg tablet (Centrum Silver Men) 1 tab PO DAILY supplement 12/16/21 [History Confirmed 09/17/22] nitroglycerin 0.4 mg sublingual tablet 0.4 mg sublingual Q5M PRN Chest Pain #25 tabs 04/02/22 [Rx Confirmed 09/17/22] ascorbic acid (vitamin C) 250 mg tablet (Vitamin C) 250 mg PO DAILY supplement 05/22/22 [History Confirmed 09/17/22] magnesium oxide 420 mg tablet 420 mg PO DAILY supplement 05/22/22 [History Confirmed 09/17/22] metronidazole 500 mg tablet 500 mg PO Q8H 7 days #21 tabs 09/03/22 [Rx Confirmed 09/17/22] Subjective Details: Patient is a 77-year-old male who was recently hospitalized with acute c holecystitis. Cholecystostomy tube was placed. He reports he is feeling well with no abdominal pain and tolerating diet currently. Objective Details: Abdomen is soft and nontender. Percutaneous cholecystostomy tube is draining green bile Coding Level of Care Code Off vis,est,level 3 Diagnoses Cholecystitis K81.9 [facility] Medical History (Updated 09/17/22 @ 10:15 by Eva Krishna) Anemia Anxiety Atherosclerosis of coronary artery of [place] heart without angina pectoris Atrial fibrillation Atrial fibrillation Brantley's esophagus with esophagitis Bleeding tendency CAD (coronary artery disease) Cancer Chest pain Chronic anticoagulation Chronic depression Chronic kidney disease, stage 3 Chronic kidney disease, stage III (moderate) CPAP (continuous positive airway pressure) dependence Depression Essential hypertension GERD (gastroesophageal reflux disease) Hearing deficit Hearing loss, left Hearing loss, right Hiatal hernia High cholesterol History of left heart catheterization (LHC) (~05/20/21) History of septic shock (04/02/16) History of stress test Hyperlipidemia Hypothyroidism Iron deficiency anemia Kidney disease Left leg swelling Lipodermatosclerosis Non-smoker Obesity (BMI 35.0-39.9 without comorbidity) Obstructive sleep apnea Right leg swelling Sleep apnea Sleep apnea TIA (transient ischemic attack) Ulcer Ulcer of left calf Surgical History H/O cardiac catheterization History of appendectomy History of bilateral knee replacement History of coronary artery bypass graft x 3 (~05/27/21) History of coronary artery stent placement History of total left knee replacement History of total right knee replacement Hx of CABG Stented coronary artery (04/14/07) Family History Father Cancer LungMother Heart diseaseBrother Heart disease CVA (cerebral vascular accident)Brother Heart diseaseBrother Heart disease Social History household members: spouse housing: apartment pets and animals: No Smoking Status: Never smoker alcohol intake: never substance use type: does not use caffeine: Yes Type: carbonated beverages Number of servings: 1 Assessment and Plan (No Qualifiers) Assessment and Plan (1) Cholecystitis: Status: Acute Plan: Patient was recently hospitalized with acute cholecystitis and cholecystostomy tube was placed. The patient seems to be doing better now and I am waiting for the inflammation to calm down. Plan for laparoscopic cholecystectomy in 2 to 3 weeks from now. I discussed the procedure in detail with the patient. I discussed the risks, benefits, and alternatives of the procedure. I discussed the risks including but not limited to bleeding, infection, injury to surrounding organs such as the liver, bile duct, bowels. I did discuss the possibility of having to convert to an open procedure as well as the possibility that if any injuries occurred this may necessitate further surgery at a tertiary care center. I will have the patient stop his Eliquis 3 days prior to surgery. I also discussed the possibility of partial cholecystectomy or need for a drain. Kalyan Euceda MD Pager: [facility] [address] [place] [address], [address] [place] [address] Office: I have examined the patient and the H&P has been reviewed. There are no clinical changes since date of exam.
[2022-10-07] MEDS: Cefotetan 2 GM in 0.9% NS 100 ML IV (11:41)
--- NOTE | 2022-10-07 11:56 | RAD_ITS ---
CLINICAL HISTORY: Male, 77 years old. Cholecystectomy PROCEDURE: CHOLANGIOGRAM - intraoperative cholangiogram CONSENT: Informed consent obtained SEDATION: Generalized FLUOROSCOPY TIME (if supplied): (40.9) seconds Two separate cine loops were obtained one with 39 images, the other with 222 images Placement of the catheter and the procedure were performed by: Dr. Euceda Fluoroscopy was provided by Savanah Card, who was present in the room time of the procedure. TECHNIQUE: (All elements of maximal sterile barrier technique followed, including US elements as applicable) After cholecystectomy, the cystic duct was cannulized and injected with contrast. There is normal filling of the cystic duct and common duct and free flow of contrast into the duodenum. There is retrograde filling of the extrahepatic common duct. All are free of abnormality. There is however evidence to suspect extravasation of contrast outside the lumen of the cystic duct is correlate clinically. RAD/Cholangiogram/ O R,Initial IMPRESSION: After injection of contrast in the cystic duct there is evidence to suspect extravasation of contrast outside the lumen of the biliary tree. Please correlate clinically No evidence of filling defect within the common or cystic duct to suspect retained stone Free flow of contrast into the duodenum Electronically Signed: Brennan Sepulveda MD at 15:14 EDT ,
[2022-10-07] MEDS: Bupivacaine 0.25% 30 ML Vial (13:07)
--- NOTE | 2022-10-07 13:20 | PCM.OPRPT ---
Report of Operation Date of Procedure: 10/07/22 Pre-Operative Diagnosis: History of acute cholecystitis and cholelithiasis Post-Operative Diagnosis: Same Surgery/Procedure Performed:: Laparoscopic cholecystectomy with cholangiogram Type of Anesthesia: General/Regional Specimen's removed: Gallbladder Estimated Blood Loss (mL): 100 Description of Procedure: Patient was brought back to the operating room and general anesthesia was induced. The cholecystostomy tube was removed. The abdomen was prepped and draped in usual sterile fashion. An incision was made in the midline superior to the umbilicus. The fascia was elevated and incised. A port was placed into the abdomen and was insufflated to 15 mmHg. Patient was placed in reverse Trendelenburg and the gallbladder was identified. The patient had a lot of dense adhesions and a lot of inflammation. It was dissected free until the infundibulum was identified. The infundibulum was identified and then the cystic duct and cystic arteries were identified. Cholangiograms were performed. Tsang clamp was clamped across the infundibulum and the needle was placed into the gallbladder. Under fluoroscopy cholangiograms were performed. There was good filling of the common duct as well as the duodenum. No filling defects identified. The needle and clamp were then removed. The cystic duct was clipped 3 times and divided and the cystic artery was clipped and divided. The gallbladder was taken off of the gallbladder fossa using electrocautery. There was then taken off the anterior abdominal wall and placed into a bag. The gallbladder fossa had significant oozing. It was irrigated and suctioned dry and hemostasis was obtained using fibrillar wire and direct pressure and electrocautery. Next the abdomen was irrigated and suctioned dry. Surgicel powder was placed over the gallbladder fossa. The patient was placed flat and the ports were removed. Abdomen was desufflated of air and then the fascia was closed with interrupted 0 Vicryl suture. Next the skin was injected with local anesthetic and closed with interrupted 4-0 Monocryl sutures and Steri-Strips and bandages were applied. Patient was taken to PACU in stable condition. Patient will be admitted for observation due to bleeding during surgery. Admit VTE Documentation VTE Mechan Device Prophylaxis: SCD's
--- NOTE | 2022-10-07 13:45 | NURSING ---
O2 SATS DROPPING TO 86% WHILE SLEEPING, O2 APPLIED 4LNC.
[2022-10-07] MEDS: 0.9% Normal Saline 1,000 ML 60 ML IV (16:36)
[2022-10-07] MEDS: oxyCODONE 5 MG Tablet PO ×2 (16:37→22:56)
[2022-10-07] MEDS: levoFLOXacin 500 MG Tablet PO (18:23)
[2022-10-07] MEDS: Atorvastatin Calcium 40 MG Tablet PO (22:54)
[2022-10-08 05:02] VITALS: BP 101/70; PULSE 96; RESP 18; TEMP 36.6; O2SAT 98
[2022-10-08] MEDS: Levothyroxine 25 MCG TABLET PO (05:18)
[2022-10-08] MEDS: 0.9% Normal Saline 1,000 ML 60 ML IV (05:19)
[2022-10-08 06:15] LABS: Absolute Neutrophil Count 4.3 X10^3/uL (2.0-7.7); Basophil# 0.03 X10^3/uL; Basophil% 0.5 % (0-1); Eosinophil# 0.13 X10^3/uL; Eosinophils% 2.2 % (0-5); Hemoglobin 11.2 g/dL (13.0-16.5); Lymphocyte % 13.5 % (19-41); Mean Corp Hgb Conc 31.1 g/dL (32-36); Mean Corpuscular Hgb 31.6 pg (27.0-32.0); Mean Corpuscular Volume 101.7 fL (80-94); Mean Platelet Vol. 10.3 fl (6.2-12.0); Monocyte# 0.64 X10^3/uL; Monocyte% 10.8 % (0-10); NRBC Flagged by Analyzer 0 % (0-5); Neutrophil % 72.5 % (47-70); Platelet Count 121 K/mm3 (150-450); RBC Distribution Width CV 15.2 % (11.6-14.6); RBC Distribution Width SD 57.2 fl (35.1-43.9); Red Blood Count 3.54 M/mm3 (4.6-6.2); White Blood Count 5.9 K/mm3 (4.4-11.0)
[2022-10-08 06:50] LABS: AST(SGOT) 23 U/L (15-37); Alanine Aminotransfer ALT/SGPT 27 U/L (16-61); Albumin, Serum 2.5 g/dL (3.2-5.0); Alkaline Phosphatase 75 U/L (45-117); Anion Gap 2 (5-15); BUN 20 mg/dL (7-18); BUN/Creat Ratio 15.3 RATIO (10-20); Chloride 111 mmol/L (98-107); Creatinine, Serum 1.31 mg/dL (0.70-1.30); EST Glomerular Filtration Rate 56 mL/min (>60); Est Glom Filt Rate - Afr Amer 68 mL/min (>60); Globulin 2.5 g/dL (2.2-4.2); Glucose 86 mg/dL (74-106); Potassium 4.1 mmol/L (3.5-5.1); Sodium Level 141 mmol/L (136-145)
--- NOTE | 2022-10-08 08:43 | PCM.PN.SRG ---
Subjective Subjective Patient seems to be doing well with minimal pain Objective Data Objective Data Vital Signs: Vital Signs Temp Pulse Resp BP Pulse Ox O2 Del Method O2 Flow Rate 97.9 F 96 18 101/70 98 Room Air 2 10/08/22 05:02 10/08/22 05:02 10/08/22 05:02 10/08/22 05:02 10/08/22 05:02 10/08/22 05:02 10/07/22 20:26 Oxygen Flow Rate (L/min) 2 Oxygen Delivery Method Room Air Weight: 234 lb 9.149 oz Body Mass Index (BMI) 32.7 Intake & Output: Intake and Output for Last 24 Hours 10/06/22 10/07/22 10/08/22 23:59 23:59 23:59 Intake Total 3000 / 3000 1293 / 1293 Balance 3000 / 3000 1293 / 1293 Lab / Micro Data 10/08/22 05:40 10/08/22 05:40 Labs: Laboratory Results - last 24 hr 10/08/22 05:40: WBC 5.9, RBC 3.54 L, Hgb 11.2 L, Hct 36.0 L, MCV 101.7 H, MCH 31.6, MCHC 31.1 L, RDW Std Deviation 57.2 H, RDW Coeff of Sylwia 15.2 H, Plt Count 121 L, MPV 10.3, Immature Gran % (Auto) 0.500, Neut % (Auto) 72.5 H, Lymph % (Auto) 13.5 L, Mcleod % (Auto) 10.8 H, Eos % (Auto) 2.2, Baso % (Auto) 0.5, Absolute Neuts (auto) 4.3, Absolute Lymphs (auto) 0.80 L, Nucleated RBC % 0, Sodium 141, Potassium 4.1, Chloride 111 H, Carbon Dioxide 28.0, Anion Gap 2 L, BUN 20 H, Creatinine 1.31 H, Estim Creat Clear Calc 49.50, Est GFR (MDRD) Af Amer 68, Est GFR (MDRD) Non-Af 56 L, BUN/Creatinine Ratio 15.3, Glucose 86, Calcium 8.0 L, Total Bilirubin 0.70, AST 23, ALT 27, Alkaline Phosphatase 75, Total Protein 5.0 L, Albumin 2.5 L, Globulin 2.5, Albumin/Globulin Ratio 1.0 Radiography Diagnostic Testing: Radiology Impression Cholangiogram 10/07/22 11:56 IMPRESSION: After injection of contrast in the cystic duct there is evidence to suspect extravasation of contrast outside the lumen of the biliary tree. Please correlate clinically No evidence of filling defect within the common or cystic duct to suspect retained stone Free flow of contrast into the duodenum Electronically Signed: Brennan Sepulveda MD at 15:14 EDT , Physical Exam Const oriented x3 and no apparent distress Resp normal respiratory effort GI soft to palpation Palpation: tender Assessment & Plan Assessment/Plan (1) Cholecystitis: PLAN: Patient seems to be doing well. His hemoglobin is 11 from 14 preoperatively. He did have significant blood loss during surgery yesterday. His vitals appear stable and he tolerated clear liquids. I will advance him to regular diet. As long as he still is doing well and tolerating diet this afternoon I will discharge him home. Kalyan Euceda MD Pager: [facility] [address] [place] [address], [address] [place] [address] Office:
--- NOTE | 2022-10-08 10:39 | PCM.DC ---
Discharge Instructions Diet Discharge Diet: Light diet - advance as tolerated Activity Discharge Activity: May Not Drive (3-5 days or while on narcotic pain medication) Lifting Restrictions: 10 pounds for 2 weeks Dressing / Incision Call your doctor if your incision/area has: Continuous Slow Oozing, Sudden Increased Bleeding, Increased Pain/ Swelling, Increased Redness, Foul Smelling Discharge and Swelling at the incision site Call your doctor if you observe: Fever of 101 or Higher Suture Line Care: Avoid Pulling/Pushing and Avoid Pinching/Bending Remove Dressing in: 3 days Cleanse incision/area with: Soap & Water Follow Up Care Please Follow Up With: Kalyan Eucead MD When: Please call our office to schedule an appointment at [phone] for a 7 day post-operative appointment. Test Results: Test results from this visit will be discussed in further detail at your follow-up appointment, if applicable. Discharge Plan Admission Admit Date/Time: 10/07/22 13:41 Primary Reason for Your Visit: Laparoscopic cholecystectomy with cholangiogram for cholecystitis Attending Provider: Kalyan Euceda Primary Care Provider: Wilbert Pradhan Chi Consulting Providers: Curt Timmons Instructions Additional Instructions / Restrictions: Diet ? Start light with soups and soft bland foods. You may advance diet as tolerated. Activity ? You may drive in 3-5 days but not while taking narcotic pain medication. ? I encourage walking. You may go up steps, one at a time. ? Do not swim or use hot tubs for 2 weeks. ? For comfort, you may use warm compresses or ice as needed for 15-20 minutes at a time. Lifting ? You may lift up to 10 pounds for the first 2 weeks. You may advance to 20 pounds for the next 3 weeks. Dressings/Incision ? You may shower OVER your plastic dressings ? Do NOT tub bathe for 1 week ? Leave plastic dressings on for 3 days. ? When plastic dressings are removed, you will find steri strips. It is okay to continue showering with them in place, pat them dry. ? You may remove steri-strips after 1 week. We recommend getting them soaking wet for easier removal. Medications ? Anesthesia used during surgery and pain medications may cause constipation. I recommend initiating on the day of surgery a fiber supplement like, Metamucil, Citrucel, FiberCon, Benefiber, or a generic form of these medications. 1 heaping tablespoon in water daily. You may continue to utilize any bowel regimen or oral laxatives that you routinely take. ? As long as you are not intolerant to Tylenol, acetaminophen, ibuprofen, Motrin, Advil, Aleve, or similar medications, I would recommend transitioning to these [id number] medicines as soon as possible instead of continued use of narcotic pain medication. Follow up ? You should call [facility] soon after surgery, at [phone] option 1 to make a follow up appointment for 7 days after your surgery. Discharge Orders/Prescriptions Prescriptions: New oxycodone 5 mg Tablet 5 mg PO Q6H PRN PRN (Reason: Pain Score 4-10) 2 Days Qty: 6 0RF Continued pantoprazole 40 mg tablet,delayed release (DR/EC) 40 mg PO DAILY atorvastatin 40 mg tablet 40 mg PO QHS trospium 20 mg tablet 20 mg PO BID Rx Instructions: administer on an empty stomach levothyroxine 25 mcg tablet 25 mcg PO DAILY potassium klor-con 20 meq PO DAILY acetaminophen 500 mg tablet 1,000 mg PO Q6H PRN (Reason: pain) aspirin [Adult Low Dose Aspirin] 81 mg tablet,delayed release (DR/EC) 81 mg PO DAILY cyanocobalamin (vitamin B-12) 1,000 mcg tablet 1,000 mcg PO DAILY nitroglycerin 0.4 mg tablet, sublingual 0.4 mg sublingual Q5M PRN (Reason: Chest Pain) Qty: 25 3RF Rx Instructions: do not exceed 3 doses per episode prednisolone acetate 1 % Drops,Suspension 1 drp LEFT EYE TID carboxymethylcellulose sodium 1 % Drops, Liquid Gel 1 drp RIGHT EYE DAILY fluoxetine 20 mg capsule 40 mg PO DAILY Patient Comments: TAKE 1 CAPSULE BY MOUTH ONCE DAILY IN THE MORNING FOR 90 DAYS metoprolol tartrate 50 mg tablet 50 mg PO BID Centrum Silver Men 300-600-300 mcg Tablet 1 tab PO DAILY furosemide [Lasix] 40 mg tablet 60 mg PO DAILY magnesium oxide 420 mg Tablet 420 mg PO DAILY ascorbic acid (vitamin C) [Vitamin C] 250 mg Tablet 250 mg PO DAILY metronidazole 500 mg tablet 500 mg PO Q8H 7 Days Qty: 21 0RF levofloxacin 500 mg tablet 500 mg PO DAILY Qty: 21 1RF L.acidoph,saliva-B.bif-Arjun [Acidophilus Probiotic Blend] 175 mg capsule 1 cap PO DAILY Qty: 30 1RF Held Eliquis 5 mg tablet 5 mg PO BID Hold Instructions: Resume on 10/09/22. Other Ambulatory Orders: 12 Lead EKG (Routine) Timeframe: 20221001 Location: None Selected Ordered By: Dr. Curt Timmons CBC W/Diff, Automated (Routine) Timeframe: 20221013 Facility: [facility] - Location: Laboratory Ordered By: Bernadette MURRIETA Referrals / Follow Up: Kalyan Euceda MD [Med Staff - Active Staff] - (Please call our office to schedule a follow-up to be seen in 7 days) Wilbert Pradhan Chi, MD [Primary Care Provider] - Disposition Disposition (needs filled in before D/C Order can be placed): Home, Self Care
[2022-10-08] MEDS: Tolterodine Tartrate 2 MG CAP.SA PO (10:55)
[2022-10-08 10:56] VITALS: PULSE 80
[2022-10-08] MEDS: Metoprolol Tartrate 50 MG Tablet PO (10:56)
[2022-10-08] MEDS: Furosemide 40 MG Tablet 60 MG PO (10:56)
[2022-10-08] MEDS: Pantoprazole Sodium 40 MG Tablet PO (10:57)
[2022-10-08] MEDS: Fluoxetine HCl 40 MG CAPSULE PO (10:57)
[2022-10-08] MEDS: levoFLOXacin 500 MG Tablet PO (10:58)
[2022-10-08] MEDS: Glycerin/Hypromellose/PEG400 15 ml Bottle 1 DRP RIGHT EYE (10:58)
[2022-10-08 11:00] VITALS: BP 98/58; PULSE 94; RESP 16; TEMP 36.4; O2SAT 96
[2022-10-08 12:22] LABS: Hematocrit 35.7 % (40-54); Hemoglobin 11.3 g/dL (13.0-16.5)
[2022-10-08 12:46] VITALS: BP 102/64
[2022-10-08 13:00] VITALS: BP 106/70
--- NOTE | 2022-10-08 14:08 | DCINST_ITS ---
Discharge Instructions Procedure Gallbladder Diet Discharge Diet: Light diet - advance as tolerated Activity Discharge Activity: May Not Drive (for 2-3 days or while taking narcotic pain medications.) and - (Do not drive, work heavy equipment or sign legal documents for 24 hours.) May shower in (days): 1 Lifting Restrictions: 20 lbs for 2 weeks Additional Activity Instructions:: Pain medication may cause nausea. You should typically eat light foods as you take your pain medications. Pain medication may also cause constipation. If this is a problem for you, please discuss with your doctor. Dressing / Incision Call your doctor if your incision/area has: Continuous Slow Oozing, Sudden Increased Bleeding, Increased Pain/ Swelling, Increased Redness, Foul Smelling Discharge and Swelling at the incision site Call your doctor if you observe: Fever of 101 or Higher Suture Line Care: Avoid Pulling/Pushing and Avoid Pinching/Bending Remove Dressing in: 2 days Cleanse incision/area with: Soap & Water Additional Dressing/Incision Instructions:: Leave operative bandaids on for 2 days. When you remove dressing, leave Steri-Strips on until your follow-up appointment, or until the Steri-Strips fall off on their own. Follow Up Care Please Follow Up With: Kalyan Euceda MD When: Please call to schedule 2 week follow up appointment. [phone] Test Results: Test results from this visit will be discussed in further detail at your follow- up appointment, if applicable. Discharge Plan Admission Admit Date/Time: 10/07/22 13:41 Primary Reason for Your Visit: Laparoscopic cholecystectomy with cholangiogram for cholecystitis Attending Provider: Kalyan Euceda Primary Care Provider: Wilbert Pradhan Chi [employer] Providers: Curt Timmons Instructions Additional Instructions / Restrictions: Diet ? Start light with soups and soft bland foods. You may advance diet as tolerated. Activity ? You may drive in 3-5 days but not while taking narcotic pain medication. ? I encourage walking. You may go up steps, one at a time. ? Do not swim or use hot tubs for 2 weeks. ? For comfort, you may use warm compresses or ice as needed for 15-20 minutes at a time. Lifting ? You may lift up to 10 pounds for the first 2 weeks. You may advance to 20 pounds for the next 3 weeks. Dressings/Incision ? You may shower OVER your plastic dressings ? Do NOT tub bathe for 1 week ? Leave plastic dressings on for 3 days. ? When plastic dressings are removed, you will find steri strips. It is okay to continue showering with them in place, pat them dry. ? You may remove steri-strips after 1 week. We recommend getting them soaking wet for easier removal. Medications ? Anesthesia used during surgery and pain medications may cause constipation. I recommend initiating on the day of surgery a fiber supplement like, Metamucil, Citrucel, FiberCon, Benefiber, or a generic form of these medications. 1 heaping tablespoon in water daily. You may continue to utilize any bowel regimen or oral laxatives that you routinely take. ? As long as you are not intolerant to Tylenol, acetaminophen, ibuprofen, Motrin, Advil, Aleve, or similar medications, I would recommend transitioning to these [id number] medicines as soon as possible instead of continued use of narcotic pain medication. Follow up ? You should call [facility] soon after surgery, at [phone] option 1 to make a follow up appointment for 7 days after your surgery. Discharge Orders/Prescriptions Prescriptions: New oxycodone 5 mg Tablet 5 mg PO Q6H PRN PRN (Reason: Pain Score 4-10) 2 Days Qty: 6 0RF Continued pantoprazole 40 mg tablet,delayed release (DR/EC) 40 mg PO DAILY atorvastatin 40 mg tablet 40 mg PO QHS trospium 20 mg tablet 20 mg PO BID Rx Instructions: administer on an empty stomach levothyroxine 25 mcg tablet 25 mcg PO DAILY potassium klor-con 20 meq PO DAILY acetaminophen 500 mg tablet 1,000 mg PO Q6H PRN (Reason: pain) aspirin [Adult Low Dose Aspirin] 81 mg tablet,delayed release (DR/EC) 81 mg PO DAILY cyanocobalamin (vitamin B-12) 1,000 mcg tablet 1,000 mcg PO DAILY nitroglycerin 0.4 mg tablet, sublingual 0.4 mg sublingual Q5M PRN (Reason: Chest Pain) Qty: 25 3RF Rx Instructions: do not exceed 3 doses per episode prednisolone acetate 1 % Drops,Suspension 1 drp LEFT EYE TID carboxymethylcellulose sodium 1 % Drops, Liquid Gel 1 drp RIGHT EYE DAILY fluoxetine 20 mg capsule 40 mg PO DAILY Patient Comments: TAKE 1 CAPSULE BY MOUTH ONCE DAILY IN THE MORNING FOR 90 DAYS metoprolol tartrate 50 mg tablet 50 mg PO BID Centrum Silver Men 300-600-300 mcg Tablet 1 tab PO DAILY furosemide [Lasix] 40 mg tablet 60 mg PO DAILY magnesium oxide 420 mg Tablet 420 mg PO DAILY ascorbic acid (vitamin C) [Vitamin C] 250 mg Tablet 250 mg PO DAILY metronidazole 500 mg tablet 500 mg PO Q8H 7 Days Qty: 21 0RF levofloxacin 500 mg tablet 500 mg PO DAILY Qty: 21 1RF L.acidoph,saliva-B.bif-S.therm [Acidophilus Probiotic Blend] 175 mg capsule 1 cap PO DAILY Qty: 30 1RF Held Eliquis 5 mg tablet 5 mg PO BID Hold Instructions: Resume on 10/09/22. Other Ambulatory Orders: 12 Lead EKG (Routine) Timeframe: 20221001 Location: None Selected Ordered By: Dr. Curt Timmons CBC W/Diff, Automated (Routine) Timeframe: 20221013 Facility: [facility] - Location: Laboratory Ordered By: Bernadette MURRIETA Referrals / Follow Up: Kalyan Euceda MD [Med Staff - Active Staff] - (Please call our office to schedule a follow-up to be seen in 7 days) Wilbert Pradhan Chi, MD [Primary Care Provider] - Disposition Disposition (needs filled in before D/C Order can be placed): Home, Self Care
--- NOTE | 2022-10-08 14:12 | PCM.PN.BLA ---
Progress Note Patient had a repeat Hgb which is stable. Patient has tolerated a diet. His pain is manageable. He has met criteria for discharge.
--- NOTE | 2022-10-08 14:30 | CASEMGMT ---
TONY CM into pt room, pt states he would like his HHC to be resumed. He is active with [facility]. Pt denies any further homegoing needs. Updated Kindra at [facility] that pt will dc today.
--- NOTE | 2022-10-08 15:03 | CASEMGMT ---
Care Mgmt Met with patient to complete WILLIS form. WILLIS form explained to patient who voiced understanding and signed form. Original form placed in pt?s chart and copy provided to patient. Vivian Jiménez, Discharge Planning Asst.
[2022-10-08 17:00] VITALS: BP 110/61; PULSE 94; RESP 16; TEMP 36.6; O2SAT 97
== END 2022-10-08 18:49 | disposition home health service (06) ==
LOC: MS3 10-08 01:32 → AC 10-08 10:11 → SDC 10-08 10:11 → MS3 10-08 10:11
PROVIDERS: Anesthesiology; Admitting Provider Surgery; PCP Family Medicine Geriatric Medicine; Referring Provider Surgery; Visit Provider Surgery
PROC: (CPT 47610; principal; 2022-10-07 10:40)
DX: K80.12 Calculus of gallbladder with acute and chronic cholecystitis without obstruction (principal); I48.91 Unspecified atrial fibrillation; N18.31 Chronic kidney disease, stage 3a; I25.10 Atherosclerotic heart disease of native coronary artery without angina pectoris; K21.9 Gastro-esophageal reflux disease without esophagitis; E78.00 Pure hypercholesterolemia, unspecified; I12.9 Hypertensive chronic kidney disease with stage 1 through stage 4 chronic kidney disease, or unspecified chronic kidney disease; Z79.82 Long term (current) use of aspirin; Z79.01 Long term (current) use of anticoagulants; Z79.899 Other long term (current) drug therapy; Z79.890 Hormone replacement therapy; G47.31 Primary central sleep apnea
CPT/HCPCS: 47563; 00790; 36415; 74300; 76000; 80048; 80053; 84443; 85014; 85018; 85025; 85027; 88304; 93005; 99221; J7030; J7120; G0378; J2405

== ENCOUNTER → 2022-11-10 | Outpatient (CLI) | payer MEDICARE, OTHER, SELFPAY ==
[2021-09-17 08:31] VITALS: BMI 38.4
[2022-11-10 16:56] LABS: Hematocrit 41.2 % (40-54); Hemoglobin 13.3 g/dL (13.0-16.5); Mean Corp Hgb Conc 32.3 g/dL (32-36); Mean Corpuscular Hgb 31.8 pg (27.0-32.0); Mean Corpuscular Volume 98.6 fL (80-94); Mean Platelet Vol. 9.5 fl (6.2-12.0); Platelet Count 115 K/mm3 (150-450); RBC Distribution Width CV 15.2 % (11.6-14.6); RBC Distribution Width SD 55.8 fl (35.1-43.9); Red Blood Count 4.18 M/mm3 (4.6-6.2); White Blood Count 5.6 K/mm3 (4.4-11.0)
[2022-11-10 17:18] LABS: Albumin, Serum 3.2 g/dL (3.2-5.0); BUN 27 mg/dL (7-18); BUN/Creat Ratio 16.9 RATIO (10-20); Calcium,Total 8.6 mg/dL (8.5-10.1); Chloride 108 mmol/L (98-107); EST Glomerular Filtration Rate 45 mL/min (>60); Est Glom Filt Rate - Afr Amer 54 mL/min (>60); Glucose 105 mg/dL (74-106); Potassium 4.1 mmol/L (3.5-5.1); Sodium Level 143 mmol/L (136-145)
== END | disposition home or self-care (01) ==
LOC: LAB 16:35
PROVIDERS: PCP Family Medicine Geriatric Medicine; Visit Provider Internal Medicine Nephrology
DX: D50.9 Iron deficiency anemia, unspecified (principal); N18.31 Chronic kidney disease, stage 3a
CPT/HCPCS: 36415; 80069; 85027

== ENCOUNTER → 2022-12-23 | Outpatient (CLI) | payer MEDICARE, OTHER, SELFPAY ==
[2021-09-17 08:31] VITALS: BMI 38.4
--- NOTE | 2022-12-23 15:25 | CT_ITS ---
STUDY: CT BRAIN WITHOUT CONTRAST REASON FOR EXAM: Male, 77 years old. CLOSED HEAD INJURY RADIATION DOSAGE (If Supplied By Facility): CTDIvol = ( 44.99 ) mGy, DLP = ( 829.85 ) mGycm TECHNIQUE: Transaxial CT imaging of the brain was performed without administration of intravenous contrast material. Individualized dose optimization techniques were used for this CT. COMPARISON: 08/31/2022 FINDINGS: Normal soft tissue structures. Normal calvarium. Normal size ventricles and extra-axial spaces for the patient''s age. Normal white matter tracts of the cerebral hemispheres. Normal basal ganglia and thalami. Normal brainstem. Normal cerebellum. There is no intracranial hemorrhage. There are no findings of an acute ischemic infarction. Normal visualized paranasal sinuses. CT/Brain/Head without Contrast IMPRESSION: No definite acute or significant abnormality seen. Electronically Signed: Josue Mccoy MD at 17:11 EST ,
== END | disposition home or self-care (01) ==
LOC: CT 15:24
PROVIDERS: PCP Family Medicine Geriatric Medicine; Referring Provider Family Medicine Geriatric Medicine; Visit Provider Family Medicine Geriatric Medicine
DX: S09.90XA Unspecified injury of head, initial encounter (principal)
CPT/HCPCS: 70450

== ENCOUNTER → 2023-01-21 | Outpatient (CLI) | payer MEDICARE, OTHER, SELFPAY ==
[2021-09-17 08:31] VITALS: BMI 38.4
[2023-01-21 17:43] LABS: Absolute Lymphocyte Count 0.84 X10^3/uL (0.83-4.51); Absolute Neutrophil Count 4.7 X10^3/uL (2.0-7.7); Basophil# 0.04 X10^3/uL; Basophil% 0.6 % (0-1); Eosinophil# 0.06 X10^3/uL; Hematocrit 43.5 % (40-54); Hemoglobin 14.2 g/dL (13.0-16.5); Lymphocyte # 0.84 X10^3/ul (0.83-4.51); Lymphocyte % 13.4 % (19-41); Mean Corp Hgb Conc 32.6 g/dL (32-36); Mean Corpuscular Hgb 31.8 pg (27.0-32.0); Mean Corpuscular Volume 97.5 fL (80-94); Mean Platelet Vol. 10.3 fl (6.2-12.0); Monocyte# 0.56 X10^3/uL; NRBC Flagged by Analyzer 0 % (0-5); Neutrophil # 4.73 X10^3/uL (2.7-7.7); Neutrophil % 75.7 % (47-70); Platelet Count 143 K/mm3 (150-450); RBC Distribution Width CV 14.6 % (11.6-14.6); RBC Distribution Width SD 52.6 fl (35.1-43.9); Red Blood Count 4.46 M/mm3 (4.6-6.2); White Blood Count 6.3 K/mm3 (4.4-11.0)
[2023-01-21 17:56] LABS: Vitamin D,25 Hydroxy 65.7 ng/mL
[2023-01-21 18:04] LABS: ALB/GLOB Ratio 1.1 RATIO (0.9-2.4); AST(SGOT) 40 U/L (15-37); Alanine Aminotransfer ALT/SGPT 46 U/L (16-61); Albumin, Serum 3.3 g/dL (3.2-5.0); Alkaline Phosphatase 98 U/L (45-117); Anion Gap 5 (5-15); BUN 29 mg/dL (7-18); Calcium,Total 8.5 mg/dL (8.5-10.1); Chloride 112 mmol/L (98-107); Creatinine, Serum 1.26 mg/dL (0.70-1.30); EST Glomerular Filtration Rate 59 mL/min (>60); Est Glom Filt Rate - Afr Amer 71 mL/min (>60); Globulin 2.9 g/dL (2.2-4.2); Glucose 81 mg/dL (74-106); Potassium 4.2 mmol/L (3.5-5.1); Protein, Total 6.2 g/dL (6.4-8.2); Sodium Level 143 mmol/L (136-145); Thyroid Stim Hormone (TSH) 3.78 uIU/mL (0.358-3.74)
== END | disposition home or self-care (01) ==
LOC: POLAB3 15:42
PROVIDERS: PCP Family Medicine Geriatric Medicine; Visit Provider Family Medicine Geriatric Medicine
DX: E11.65 Type 2 diabetes mellitus with hyperglycemia (principal); R53.83 Other fatigue; E55.9 Vitamin D deficiency, unspecified
CPT/HCPCS: 36415; 80053; 82306; 84443; 85025

== ENCOUNTER 2023-03-08 14:00 | Outpatient (RCR) | payer MEDICARE, OTHER, SELFPAY ==
[2021-09-17 08:31] VITALS: BMI 38.4
[2022-10-09 00:41] VITALS: BP 110/78; PULSE 103; RESP 18; TEMP 36.2
[2023-02-15 14:13] VITALS: BP 118/82; PULSE 77; RESP 16; TEMP 36.2
--- NOTE | 2023-02-15 14:45 | PCM.WC.PN ---
History of Present Illness Date of Service: 02/15/23 Chief Complaint: Nonhealing ulcer left anteromedial lower leg. History of Wound: 77-year-old male presented to the wound care center for treatment of a recurrent ulcer left anteromedial lower leg. The ulcer tries to heal and then it breaks open again. He has atrial fibrillation and is on Eliquis. He wears compression stockings. He had a left tib-fib x-ray on 07/22/22. It showed intact total knee arthroplasty and mild degenerative changes of the ankle with soft tissue swelling. He has venous insufficiency with ulceration. Had Venous Doppler study on 07/22/22. It showed no evidence of bilateral lower extremity deep vein thrombosis. Positive for reflux in the right below knee great saphenous vein, small saphenous vein. Positive for reflux in the left small saphenous vein. Had noninvasive arterial doppler study on 08/24/22. It showed minimal arterial occlusive disease at ankle level on the right. There is mild arterial occlusive disease at digital level on the right. There is evidence of arterial calcification at ankle level on the left. There is no evidence of significant arterial occlusive disease in the left lower extremity. A wound culture was done on 08/20/22. It was positive for Staphyloccus aureus and Pseudomonas aeroginosa. He was treated with Levaquin. Today he denies fever. His appetite is good. Patient states the ulcer has healed. Progress of Wound: Healed according to the patient. Upon closure evaluation, a small superficial ulcer was still present. Objective Data Objective Data Vital Signs: Vital Signs Temp Pulse Resp BP O2 Del Method 97.1 F L 77 16 118/82 H Room Air 02/15/23 14:13 02/15/23 14:13 02/15/23 14:13 02/15/23 14:13 02/15/23 14:13 Oxygen Delivery Method Room Air Lab / Micro Data Attestation: I reviewed the patient's lab results. Micro: Wound Culture from 08/20/22 - positive for Staphylococcus aureus and Pseudomonas aeroginosa. He was treated with Levaquin. Charges/Coding Procedures Integumentary [id number]: [id number] Hien subq tissue 20 sq cm/< (ICD-10 - L97.922, I87.2, M79.89, I83.12, Z79.01) Debridement Note Debridement Note Wound debrided: #1 Left anteromedial lower leg Laterality: Left Wound Grade/Stage: 2 Type of Debridement: Excisional debridement Anesthesia Used: 5% Lidocaine Gel Depth: Down to and including healthy tissue and in the subcutaneous layer Percentage of wound debrided: 100 Instrument Used: 3mm curette Tissue Removed: subcutaneous tissue. Severity: Fat Layer Exposed Amount of bleeding with debridement: Mild Bleeding Controlled with: Pressure and Compression and gauze Patient tolerated procedure: Patient tolerated procedure well Post-Debridement Measurements and Additional Note: Post-Debridement Measurements/Treatment - Nurse 1 - General Ulcer Assessment Start: 02/15/23 14:13 Freq: Status: Active Protocol: SHARRI Activity Type Activity Date Activity User E-sign Co-sign Detail Recorded Client Recorded Date Recorded By Document 02/15/23 14:13 [facility] [employer] 02/15/23 14:22 [facility] 02/15/23 14:13 - Today's Visit Information Type of service Follow-up Visit (Physician/MARKET[employer] ) Arrival Mode Ambulatory Transfer Assistance None Patient Identification Verified (Name & Yes ) Patient Requires Transmission-Based No Precautions Vital Signs Temperature (97.8 F-99.1 F) 97.1 F L Temperature Source Temporal Pulse Rate (60-100) 77 Pulse Location Monitor Respiratory Rate (12-18) 16 Respiratory rate source Observation Oxygen Delivery Method Room Air Blood Pressure (90/60-120/80) 118/82 H Blood Pressure Mean (mm Hg) 94 Source Monitor Position Sitting Blood Pressure Location Left Arm History Since Last Visit- (Skip if this is Patient's initial visit) Left Footwear Diabetic Shoe Right Footwear Diabetic Shoe Pain Scale: 0-10 Numeric Is Patient Pain Free? Yes [facility] Nurse 1 - General Ulcer Measurement Start: 02/15/23 14:13 Freq: Status: Active Protocol: Activity Type Activity Date Activity User E-sign Co-sign Detail Recorded Client Recorded Date Recorded By Document 02/15/23 14:13 [facility] [employer] 02/15/23 14:22 [facility] 02/15/23 14:13 Wound Center Nurse 1 #2- L MEDIAL VASQUES -Combined with other wound No -Current Size (cm) - Length 0 -Current Size (cm) - Width 0 -Current Size (cm) - Depth 0 -Total Square Cm 0 -Date of Last Picture (Recall this 02/15/23 field) -Photo Taken Yes -Epithelialization Large 67-100% -Texture (Floridalma-wound Skin Appearance) Assessed, Scarring -Moisture (Floridalma-wound Skin Appearance) Assessed,Dry/ Scaly -Color (Floridalma-wound Skin Appearance) Assessed -Temperature (Floridalma-wound Skin No Abnormality Appearance) (Pt Warm) -Tenderness on Palpation (Floridalma-wound No Skin Appearance) -Wound Comment(s) pts wound is healed. hasn't been in after recent choleycystectom y. states he just wanted to come in today, and made an appt, to be cleared by the doctor. Left Calf (cm) 40.3 Left Ankle (cm) 26.7 - Nurse 2 - General Ulcer CM Notes Start: 02/15/23 14:13 Freq: Status: Active Protocol: Activity Type Activity Date Activity User E-sign Co-sign Detail Recorded Client Recorded Date Recorded By Document 02/15/23 14:36 [employer] 02/15/23 14:41 02/15/23 14:36 Wound Center Nurse 2 #2- L MEDIAL VASQUES -Time 14:38 -Correct Patient Yes -Correct Side, Site, Position Yes -Correct Procedure Yes -Procedure Performed Yes -Type of Procedure Debridement -Clinical Debridement Subcutaneous -Tissue Removed Subcutaneous -Post Debridement (cm) - Length 0.4 -Post Debridement (cm) - Width 0.5 -Post Debridement (cm) - Depth 0.1 -Total Square (Post) (cm) 0.20 -Area of Debridement (cm) - Length 0.4 -Area of Debridement (cm) - Width 0.5 -Total Square (Area) (cm) 0.20 -Tunneling No -Undermining/Tunneling No -Circular Undermining No -Wound/Ulcer Outcome Not Healed -Ulcer Cleansing Rinsed/ Irrigated with Saline -Foul Odor after Cleansing No -Bioengineered Tissue No -Bleeding Controlled with Pressure -Treatment Response Procedure Tolerated Well -Offloading No -Debridement - Subq, 1st 20sq cm Yes Pain Scale: 0-10 Numeric Is Patient Pain Free? Yes - Nurse 3 - General Ulcer D/C NN Start: 02/15/23 14:13 Freq: Status: Active Protocol: Activity Type Activity Date Activity User E-sign Co-sign Detail Recorded Client Recorded Date Recorded By Document 02/15/23 14:41 [employer] 02/15/23 14:42 JF 02/15/23 14:41 Wound Care Center Nurse 3 #2- L MEDIAL VASQUES -Ulcer Cleansing Rinsed/ Irrigated with Saline -Foul Odor after Cleansing No -Primary Dressing Applied C Hydrogel ($), Mepilex Border -Mepilex Border 1 Left -Tubular Bandage Single Layer -Size of Tubigrip Used Size E -Size E ($) 1 Pain Scale: 0-10 Numeric Is Patient Pain Free? Yes WC - Visit Discharge Discharge Condition Stable Ambulatory Status Ambulatory Transportation Private Auto Medication Reconcilliation completed & Yes provided to patient/care provider Clinical Summary of Care Provided Yes Assessment/Plan Assessment/Plan (1) Non-pressure chronic ulcer of left lower leg with fat layer exposed: CODE(S): L97.922 - Non-pressure chronic ulcer of unspecified part of left lower leg with fat layer exposed PLAN: Left anteromedial lower leg (2) Chronic venous insufficiency of lower extremity: CODE(S): I87.2 - Venous insufficiency (chronic) (peripheral) (3) Lipodermatosclerosis of left lower extremity: CODE(S): I83.12 - Varicose veins of left lower extremity with inflammation (4) Left leg swelling: CODE(S): M79.89 - Other specified soft tissue disorders (5) Chronic anticoagulation: CODE(S): Z79.01 - [employer] (current) use of anticoagulants PLAN: Eliquis for atrial fibrillation PLAN: Plan Patient has persistent nonhealing ulcer left anteromedial leg. It is more superficial. Will begin Collagen Hydrogel wound care daily. He has venous insufficiency which can lead to ulceration especially with history of swelling of the left leg. With surrounding lipodermatosclerosis, debridement is difficult at the Wound Center secondary to pain and bleeding. A wound culture was done on 08/20/22. It was positive for Staphylococcus aureus and Pseudomonas aeroginosa. He was treated with Levaquin. Continue compression with Tubigrip. He had Noninvasive Arterial Doppler study done on 08/24/22. It showed minimal arterial occlusive disease at ankle level on the right. There is mild arterial occlusive disease at digital level on the right. There is evidence of arterial calcification at ankle level on the left. There is no evidence of significant arterial occlusive disease in the left lower extremity. So the blood flow is adequate to heal the ulcer with a skin graft in the future if need be. Also a 3M two layer wrap can then be used, if necessary, to help with the localized swelling which improves the healing of the ulcer. In the meantime, will continue with a Tubigrip for compression. Encourage nutritional supplementation with protein to help the healing process. Followup one week.
[2023-03-08 13:58] VITALS: BP 157/99; PULSE 88; RESP 18; TEMP 35.7
--- NOTE | 2023-03-08 14:57 | PCM.WC.PN ---
History of Present Illness Date of Service: 03/08/23 Chief Complaint: Nonhealing ulcer left anteromedial lower leg. History of Wound: 77-year-old male presented to the wound care center for treatment of a recurrent ulcer left anteromedial lower leg. The ulcer tries to heal and then it breaks open again. He has atrial fibrillation and is on Eliquis. He wears compression stockings. He had a left tib-fib x-ray on 07/22/22. It showed intact total knee arthroplasty and mild degenerative changes of the ankle with soft tissue swelling. He has venous insufficiency with ulceration. Had Venous Doppler study on 07/22/22. It showed no evidence of bilateral lower extremity deep vein thrombosis. Positive for reflux in the right below knee great saphenous vein, small saphenous vein. Positive for reflux in the left small saphenous vein. Had noninvasive arterial doppler study on 08/24/22. It showed minimal arterial occlusive disease at ankle level on the right. There is mild arterial occlusive disease at digital level on the right. There is evidence of arterial calcification at ankle level on the left. There is no evidence of significant arterial occlusive disease in the left lower extremity. A wound culture was done on 08/20/22. It was positive for Staphyloccus aureus and Pseudomonas aeroginosa. He was treated with Levaquin. Today he denies fever. His appetite is good. Patient states the ulcer has healed. Progress of Wound: The ulcer has healed. Objective Data Objective Data Vital Signs: Vital Signs Temp Pulse Resp BP O2 Del Method 96.3 F L 88 18 157/99 H Room Air 03/08/23 13:58 03/08/23 13:58 03/08/23 13:58 03/08/23 13:58 03/08/23 13:58 Oxygen Delivery Method Room Air Charges/Coding Visit Charges Office Visits / Consults: 09560 OV L3 Est 20min (ICD-10 - L97.922, I87.2, M79.89, I83.12, Z79.01) Physical Exam Narrative PHYSICAL EXAMINATION General - Alert and Oriented HEENT - PERRL. EOMI. Throat is clear. Neck - Supple and nontender. No cervical adenopathy. Lungs - Clear to auscultation. Heart - Regular rate and rhythm. Abdomen - Soft and nondistended. Extremities - FROM. No axillary adenopathy. Radial pulses are palpable. No inguinal adenopathy. Dorsalis pedis pulses are palpable. There was a nonhealing ulcer left anterior lower leg that showed a dry scab present. Using a curette I removed the dry scab and the underlying ulcer has healed. Brawny discoloration of lower extremities indicative of lipodermatosclerosis. Neuro - CN II-XII grossly intact. Psych - Normal mood and affect. Debridement Note Debridement Note Wound debrided: #1 Left anteromedial lower leg Laterality: Left Wound Grade/Stage: 2 Tissue Removed: subcutaneous tissue. No debridement was completed: No debridement was completed today (The ulcer has healed.) Post-Debridement Measurements and Additional Note: Post-Debridement Measurements/Treatment - Nurse 1 - General Ulcer Assessment Start: 02/15/23 14:13 Freq: Status: Active Protocol: SHARRI Activity Type Activity Date Activity User E-sign Co-sign Detail Recorded Client Recorded Date Recorded By Document 02/15/23 14:13 [employer] 02/15/23 14:22 [facility] Document 03/08/23 13:58 [facility] [employer] 03/08/23 14:04 [facility] 02/15/23 03/08/23 14:13 13:58 - Today's Visit Information Type of service Follow-up Visit Follow-up Visit (Physician/STAFF MIDWIFE (Physician/STAFF MIDWIFE ) ) Arrival Mode Ambulatory Ambulatory Transfer Assistance None Patient Identification Verified (Name & Yes Yes ) Patient Requires Transmission-Based No Precautions Vital Signs Temperature (97.8 F-99.1 F) 97.1 F L 96.3 F L Temperature Source Temporal Temporal Pulse Rate (60-100) 77 88 Pulse Location Monitor Monitor Respiratory Rate (12-18) 16 18 Respiratory rate source Observation Observation Oxygen Delivery Method Room Air Room Air Blood Pressure (90/60-120/80) 118/82 H 157/99 H Blood Pressure Mean (mm Hg) 94 118 Source Monitor Monitor Position Sitting Semi-Fowlers Blood Pressure Location Left Arm Left Arm History Since Last Visit- (Skip if this is Patient's initial visit) Have you changed medications since your No last visit? Any new allergies or adverse reactions No Had a fall/change in ADL's that may No increase risk of falls Signs or symptoms of abuse and/or No neglect since last visit Have you been in the hospital since your No last visit? Has dressing in place as prescribed Yes Has compression in place as prescribed No Has offloadiing in place as prescribed No Experienced any changes in pain level or No management Left Footwear Diabetic Shoe Regular Shoe Right Footwear Diabetic Shoe Regular Shoe Pain Scale: 0-10 Numeric Is Patient Pain Free? Yes Yes - Nurse 1 - General Ulcer Measurement Start: 02/15/23 14:13 Freq: Status: Active Protocol: Activity Type Activity Date Activity User E-sign Co-sign Detail Recorded Client Recorded Date Recorded By Document 02/15/23 14:13 [facility] Desktop 02/15/23 14:22 [facility] Document 03/08/23 13:58 [facility] Desktop 03/08/23 14:04 [facility] 02/15/23 03/08/23 14:13 13:58 Wound Center Nurse 1 #2- L MEDIAL VASQUES -Combined with other wound No -Current Size (cm) - Length 0 0.1 -Current Size (cm) - Width 0 0.1 -Current Size (cm) - Depth 0 0.1 -Total Square Cm 0 0.01 -Date of Last Picture (Recall this 02/15/23 field) -Photo Taken Yes -Epithelialization Large 67-100% -Texture (Floridalma-wound Skin Appearance) Assessed, Scarring -Moisture (Floridalma-wound Skin Appearance) Assessed,Dry/ Scaly -Color (Floridalma-wound Skin Appearance) Assessed -Temperature (Floridalma-wound Skin No Abnormality No Abnormality Appearance) (Pt Warm) (Pt Warm) -Tenderness on Palpation (Floridalma-wound No Skin Appearance) -Ulcer Cleansing Rinsed/ Irrigated with Saline -Anesthetic Used 5% Lidocaine Gel -Wound Comment(s) pts wound is scabbed healed. hasn't been in after recent choleycystectom y. states he just wanted to come in today, and made an appt, to be cleared by the doctor. Left Calf (cm) 40.3 42.5 Left Ankle (cm) 26.7 25.8 - Nurse 2 - General Ulcer CM Notes Start: 02/15/23 14:13 Freq: Status: Active Protocol: Activity Type Activity Date Activity User E-sign Co-sign Detail Recorded Client Recorded Date Recorded By Document 02/15/23 14:36 Laptop 02/15/23 14:41 Document 03/08/23 14:25 Laptop 03/08/23 14:26 02/15/23 03/08/23 14:36 14:25 Wound Center Nurse 2 #2- L MEDIAL VASQUES -Time 14:38 -Correct Patient Yes No -Correct Side, Site, Position Yes No -Correct Procedure Yes No -Procedure Performed Yes No -Type of Procedure Debridement -Clinical Debridement Subcutaneous -Tissue Removed Subcutaneous -Post Debridement (cm) - Length 0.4 0 -Post Debridement (cm) - Width 0.5 0 -Post Debridement (cm) - Depth 0.1 0 -Total Square (Post) (cm) 0.20 0 -Area of Debridement (cm) - Length 0.4 0 -Area of Debridement (cm) - Width 0.5 0 -Total Square (Area) (cm) 0.20 0 -Tunneling No -Undermining/Tunneling No -Circular Undermining No -Wound/Ulcer Outcome Not Healed Healed- Epithelialized -Ulcer Cleansing Rinsed/ Irrigated with Saline -Foul Odor after Cleansing No -Bioengineered Tissue No -Bleeding Controlled with Pressure -Treatment Response Procedure Tolerated Well -Offloading No -Debridement - Subq, 1st 20sq cm Yes Pain Scale: 0-10 Numeric Is Patient Pain Free? Yes Yes - Nurse 3 - General Ulcer D/C NN Start: 02/15/23 14:13 Freq: Status: Active Protocol: Activity Type Activity Date Activity User E-sign Co-sign Detail Recorded Client Recorded Date Recorded By Document 02/15/23 14:41 Laptop 02/15/23 14:42 02/15/23 14:41 Wound Care Center Nurse 3 #2- L MEDIAL VASQUES -Ulcer Cleansing Rinsed/ Irrigated with Saline -Foul Odor after Cleansing No -Primary Dressing Applied C Hydrogel ($), Mepilex Border -Mepilex Border 1 Left -Tubular Bandage Single Layer -Size of Tubigrip Used Size E -Size E ($) 1 Pain Scale: 0-10 Numeric Is Patient Pain Free? Yes - Visit Discharge Discharge Condition Stable Ambulatory Status Ambulatory Transportation Private Auto Medication Reconcilliation completed & Yes provided to patient/care provider Clinical Summary of Care Provided Yes Assessment/Plan Assessment/Plan (1) Non-pressure chronic ulcer of left lower leg with fat layer exposed: CODE(S): L97.922 - Non-pressure chronic ulcer of unspecified part of left lower leg with fat layer exposed PLAN: Left anteromedial lower leg (2) Chronic venous insufficiency of lower extremity: CODE(S): I87.2 - Venous insufficiency (chronic) (peripheral) (3) Lipodermatosclerosis of left lower extremity: CODE(S): I83.12 - Varicose veins of left lower extremity with inflammation (4) Left leg swelling: CODE(S): M79.89 - Other specified soft tissue disorders (5) Chronic anticoagulation: CODE(S): Z79.01 - [facility] (current) use of anticoagulants PLAN: Eliquis for atrial fibrillation PLAN: Plan There was a dry scab over his nonhealing ulcer left anteromedial leg. I removed the dry scab with a curette. The underlying ulcer has healed. A wound culture was done on 08/20/22. It was positive for Staphylococcus aureus and Pseudomonas aeroginosa. He was treated with Levaquin. Continue compression with Tubigrip as good compression will help the minimize recurrence of this ulcer. He had Noninvasive Arterial Doppler study done on 08/24/22. It showed minimal arterial occlusive disease at ankle level on the right. There is mild arterial occlusive disease at digital level on the right. There is evidence of arterial calcification at ankle level on the left. There is no evidence of significant arterial occlusive disease in the left lower extremity. So the blood flow is adequate to heal the ulcer with a skin graft in the future if need be. Encourage nutritional supplementation with protein to help the healing process. Followup on an as needed basis.
== END 2023-03-08 15:50 | disposition home or self-care (01) ==
LOC: WC 14:00
PROVIDERS: PCP Family Medicine Geriatric Medicine; Referring Provider Surgery; Visit Provider Surgery
DX: I83.228 Varicose veins of left lower extremity with both ulcer of other part of lower extremity and inflammation (principal); L97.822 Non-pressure chronic ulcer of other part of left lower leg with fat layer exposed; I48.91 Unspecified atrial fibrillation; Z79.01 Long term (current) use of anticoagulants; M79.89 Other specified soft tissue disorders
CPT/HCPCS: 11042; 99213; G0463

== ENCOUNTER → 2023-05-27 | Outpatient (CLI) | payer MEDICARE, OTHER, SELFPAY ==
[2021-09-17 08:31] VITALS: BMI 38.4
[2023-05-27 16:03] LABS: Albumin, Serum 3.3 g/dL (3.2-5.0); BUN 37 mg/dL (7-18); BUN/Creat Ratio 28.2 RATIO (10-20); Calcium,Total 8.5 mg/dL (8.5-10.1); Chloride 110 mmol/L (98-107); Creatinine, Serum 1.31 mg/dL (0.70-1.30); EST Glomerular Filtration Rate 56 mL/min (>60); Est Glom Filt Rate - Afr Amer 68 mL/min (>60); Glucose 100 mg/dL (74-106); Phosphorus 2.9 mg/dL (2.5-4.9); Sodium Level 140 mmol/L (136-145)
== END | disposition home or self-care (01) ==
PROVIDERS: PCP Family Medicine Geriatric Medicine; Referring Provider Internal Medicine Nephrology; Visit Provider Internal Medicine Nephrology
DX: N18.31 Chronic kidney disease, stage 3a (principal)
CPT/HCPCS: 36415; 80069

== ENCOUNTER → 2023-06-02 | Outpatient (CLI) | payer MEDICARE, OTHER, SELFPAY ==
[2021-09-17 08:31] VITALS: BMI 38.4
--- NOTE | 2023-06-02 12:41 | VDLE_ITS ---
Reason For Study: LLE PAIN & SWELLING RIGHT LEFT CFV is compressible, spontaneous, phasic, CFV is compressible, spontaneous, phasic, competent and demonstrates normal competent, and demonstrates normal augmentation. augmentation. Procedure FV is compressible, spontaneous, phasic, This is a venous duplex using B-mode, color competent and demonstrates normal flow and spectral Doppler. augmentation. Exam performed in department. POP V is compressible, spontaneous, phasic, A preliminary report was called and/or faxed competent and demonstrates normal to Dr. Pradhan @ [phone] @ 13:10. augmentation. T/P Trunk is compressible. PTV is compressible. LT PerV is compressible. GSV is absent due to CABG. Very small NONVASCULAR, NONCOMPRESSIBLE superficial STRUCTURE NOTED on mid anterior valentin. VL/Venous Duplex US, Unilateral Interpretation Summary Deep veins of the left lower extremity are patent and compressible segmentally. There is no evidence of left lower extremity deep vein thrombosis. Small nonvascular, noncompressible superficial structure noted on mid anterior valentin. Ordering Physician: Wilbert Pradhan Chi Referring Physician: Wilbert Pradhan Chi Performed By: Ara Malcolm, KALPESHCS, RVT
== END | disposition home or self-care (01) ==
PROVIDERS: PCP Family Medicine Geriatric Medicine; Referring Provider Family Medicine Geriatric Medicine; Visit Provider Family Medicine Geriatric Medicine
DX: M79.605 Pain in left leg (principal)
CPT/HCPCS: 93971

== ENCOUNTER → 2023-08-17 | Outpatient (CLI) | payer MEDICARE, OTHER, SELFPAY ==
[2021-09-17 08:31] VITALS: BMI 38.4
[2023-08-17 16:29] LABS: Absolute Lymphocyte Count 0.43 X10^3/uL (0.83-4.51); Absolute Neutrophil Count 5.4 X10^3/uL (2.0-7.7); Basophil# 0.03 X10^3/uL; Basophil% 0.5 % (0-1); Eosinophil# 0.05 X10^3/uL; Eosinophils% 0.8 % (0-5); Hematocrit 45.8 % (40-54); Hemoglobin 14.7 g/dL (13.0-16.5); Lymphocyte # 0.43 X10^3/ul (0.83-4.51); Lymphocyte % 7.1 % (19-41); Mean Corp Hgb Conc 32.1 g/dL (32-36); Mean Corpuscular Hgb 31.1 pg (27.0-32.0); Mean Platelet Vol. 9.9 fl (6.2-12.0); Monocyte# 0.14 X10^3/uL; Monocyte% 2.3 % (0-10); NRBC Flagged by Analyzer 0.5 % (0-5); Neutrophil # 5.36 X10^3/uL (2.7-7.7); Neutrophil % 88.8 % (47-70); POSITIVE COUNT YES; POSITIVE DIFFERENTIAL YES; Platelet Count 112 K/mm3 (150-450); RBC Distribution Width CV 14.5 % (11.6-14.6); RBC Distribution Width SD 51.5 fl (35.1-43.9); Red Blood Count 4.72 M/mm3 (4.6-6.2)
[2023-08-17 16:52] LABS: Differential Comment SCANNED; Differential Indicated SCAN CRITERIA MET
[2023-08-17 17:01] LABS: ALB/GLOB Ratio 1.2 RATIO (0.9-2.4); AST(SGOT) 56 U/L (15-37); Alanine Aminotransfer ALT/SGPT 70 U/L (16-61); Albumin, Serum 3.6 g/dL (3.2-5.0); Alkaline Phosphatase 119 U/L (45-117); Anion Gap 6 (5-15); BUN 38 mg/dL (7-18); BUN/Creat Ratio 25.2 RATIO (10-20); Calcium,Total 8.9 mg/dL (8.5-10.1); Chloride 112 mmol/L (98-107); Creatinine, Serum 1.51 mg/dL (0.70-1.30); EST Glomerular Filtration Rate 48 mL/min (>60); Est Glom Filt Rate - Afr Amer 58 mL/min (>60); Glucose 125 mg/dL (74-106); Potassium 4.5 mmol/L (3.5-5.1); Protein, Total 6.6 g/dL (6.4-8.2); Sodium Level 140 mmol/L (136-145); Thyroid Stim Hormone (TSH) 1.24 uIU/mL (0.358-3.74); Vitamin D,25 Hydroxy 64.1 ng/mL
== END | disposition home or self-care (01) ==
PROVIDERS: PCP Family Medicine Geriatric Medicine; Referring Provider Family Medicine Geriatric Medicine; Visit Provider Family Medicine Geriatric Medicine
DX: E11.65 Type 2 diabetes mellitus with hyperglycemia (principal); R53.83 Other fatigue; E55.9 Vitamin D deficiency, unspecified
CPT/HCPCS: 36415; 80053; 82306; 84443; 85025

== ENCOUNTER 2023-08-26 10:18 | Outpatient (CLI) | payer MEDICARE, OTHER, SELFPAY ==
[2021-09-17 08:31] VITALS: BMI 38.4
--- NOTE | 2023-08-26 10:33 | US_ITS ---
STUDY: ABDOMINAL ULTRASOUND - RIGHT UPPER QUADRANT REASON FOR VISIT: Male, 77 years old ELEVATED LIVER ENZYMES TECHNIQUE: Ultrasound evaluation of the right upper quadrant was performed with real-time and static reyes-scale imaging. TECHNICAL QUALITY: Adequate. COMPARISON: None. FINDINGS: Liver: The liver measures 18.2 cm. There is normal echogenicity of the liver. The bile ducts are within normal limits. There is hepatic color flow. The direction of portal flow is hepatopetal. There is no demonstrated mass lesion. Gallbladder: The patient is status post cholecystectomy. es. Common Bile Duct (C.B.D.): The common bile duct measures 6 mm. Pancreas: Normal size of the head, body and tail of the pancreas. There is normal echogenicity of the pancreas. There is no demonstrated pancreatic mass or cyst. Right Kidney: Normal size of the right kidney. The right kidney measures 11.5 cm. Normal renal cortex. The right cortex measures 1.1 cm. There is no demonstrated renal mass or cyst. There is no right hydronephrosis. US/Abdomen Limited IMPRESSION: Normal right upper quadrant ultrasound examination after cholecystectomy. Electronically Signed: Saurabh Smith MD at 17:23 EDT ,
[2023-08-26 13:37] LABS: ALB/GLOB Ratio 1.2 RATIO (0.9-2.4); AST(SGOT) 25 U/L (15-37); Alanine Aminotransfer ALT/SGPT 35 U/L (16-61); Albumin, Serum 3.8 g/dL (3.2-5.0); Alkaline Phosphatase 118 U/L (45-117); Anion Gap 7 (5-15); BUN 40 mg/dL (7-18); BUN/Creat Ratio 27.6 RATIO (10-20); Calcium,Total 9.2 mg/dL (8.5-10.1); Chloride 107 mmol/L (98-107); Creatinine, Serum 1.45 mg/dL (0.70-1.30); EST Glomerular Filtration Rate 50 mL/min (>60); Est Glom Filt Rate - Afr Amer 60 mL/min (>60); Globulin 3.2 g/dL (2.2-4.2); Glucose 101 mg/dL (74-106); Potassium 3.9 mmol/L (3.5-5.1); Sodium Level 142 mmol/L (136-145)
[2023-08-27 07:08] LABS: HEPATITIS B SURFACE AG Negative (Negative); Hep C Antibodies Non Reactive (Non Reactive); Hepatitis A IgM Antibody Negative (Negative); Hepatitis B Core AB IgM Negative (Negative)
== END 2023-08-26 23:59 | disposition home or self-care (01) ==
PROVIDERS: PCP Family Medicine Geriatric Medicine; Referring Provider Family Medicine Geriatric Medicine; Visit Provider Family Medicine Geriatric Medicine
DX: R74.8 Abnormal levels of other serum enzymes (principal); R74.01 Elevation of levels of liver transaminase levels
CPT/HCPCS: 36415; 76705; 80053; 80074

== ENCOUNTER → 2023-11-01 | Outpatient (CLI) | payer MEDICARE, OTHER, SELFPAY ==
[2021-09-17 08:31] VITALS: BMI 38.4
[2023-11-01 16:14] LABS: PSA,Total- Diagnostic < 0.01 ng/mL (0.0-4.0)
== END | disposition home or self-care (01) ==
LOC: LAB 15:26
PROVIDERS: PCP Family Medicine Geriatric Medicine; Referring Provider Nurse Practitioner; Visit Provider Nurse Practitioner
DX: C61 Malignant neoplasm of prostate (principal)
CPT/HCPCS: 36415; 84153

== ENCOUNTER 2023-11-20 14:36 | Inpatient (IN) | payer MEDICARE, SELFPAY ==
[2021-09-17 08:31] VITALS: BMI 38.4
[2023-11-20] VITALS (9 sets, daily range): BP systolic 117–140; BP diastolic 76–84; PULSE 70–116; RESP 12–22; TEMP 36.6–37; O2SAT 97–99; BMI 31.6; BMI 35.5
--- NOTE | 2023-11-20 15:15 | EKG12_ITS ---
Test Reason : EDEMA Blood Pressure : / mmHG Vent. Rate : 099 BPM Atrial Rate : 000 BPM P-R Int : 000 ms QRS Dur : 086 ms QT Int : 358 ms P-R-T Axes : 000 045 077 degrees QTc Int : 459 ms Atrial fibrillation with premature ventricular or aberrantly conducted complexes Abnormal ECG Confirmed by Juan Carlos Corado ([id number]), editor managing newspaper YOGI OROPEZA ([id number]) on 11/22/2023 9:36:55 AM Referred By: Confirmed By:Juan Carlos Corado
--- NOTE | 2023-11-20 15:17 | RAD_ITS ---
STUDY: X-RAY - LEFT TIBIA AND FIBULA REASON FOR EXAM: Male, 78 years old. infection TECHNIQUE: 2 view(s) of the tibia and fibula were obtained. COMPARISON: None. FINDINGS: Normal visualized tibia. Normal visualized fibula. Total knee arthroplasty. The soft tissue structures are unremarkable. RAD/Tibia & Fibula 2 Views IMPRESSION: No acute disease Electronically Signed: Elroy Almeida MD at 16:45 EDT ,
--- NOTE | 2023-11-20 15:17 | EX.ED.DYSGE1 ---
HPI History of Present Illness Chief Complaint: Edema Informant: patient and EMS Narrative Narrative: Brought in by EMS from home, extremely hard of hearing. Reports not feeling well for last couple days nausea and vomiting no hematemesis. No diarrhea. He states that his chills. No fevers. Today got out of the shower he was going to fix himself breakfast, his looked at his left lower leg saw erythema and called EMS. He had sepsis to his right leg a few years ago. He is not a diabetic. He states last year he had infection to his left leg. Chronic skin changes to the right lower leg due to his infection years ago. He does have a history of A-fib on Eliquis however has not taken his Eliquis for the last few days. No chest pains no shortness of breath no cough. Denies any pain in his legs. Prior similar symptoms: Yes PFSH [facility] Medical History Pseudomonas aeruginosa infection Cardiology follow-up encounter History of echocardiogram Wears glasses Bleeding tendency Ulcer Hiatal hernia High cholesterol History of stress test Hearing loss, left Hearing loss, right Cancer Anemia Anxiety Kidney disease Non-smoker CPAP (continuous positive airway pressure) dependence Sleep apnea Atrial fibrillation Chest pain TIA (transient ischemic attack) Hearing deficit Obesity (BMI 35.0-39.9 without comorbidity) Lipodermatosclerosis Right leg swelling Left leg swelling Ulcer of left calf Hypothyroidism Chronic kidney disease, stage III (moderate) Chronic anticoagulation CAD (coronary artery disease) History of left heart catheterization (LHC) (~05/20/21) Sleep apnea Depression Chronic depression Iron deficiency anemia Chronic kidney disease, stage 3 Brantley's esophagus with esophagitis GERD (gastroesophageal reflux disease) Hyperlipidemia Essential hypertension Obstructive sleep apnea History of septic shock (04/02/16) Atrial fibrillation Atherosclerosis of coronary artery of [place] heart without angina pectoris Home Medications ?Medication ?Instructions ?Recorded ?Last Taken ?Type apixaban 5 mg tablet (Eliquis) 5 mg PO BID blood thinner 11/07/18 10/04/22 History atorvastatin 40 mg tablet 40 mg PO QHS cholesterol 11/07/18 Unknown History pantoprazole 40 mg tablet,delayed 40 mg PO DAILY gerd 11/07/18 10/07/22 History release trospium 20 mg tablet 20 mg PO BID bladder 07/18/19 12/03/20 History acetaminophen 500 mg tablet 1,000 mg PO Q6H PRN pain 07/22/21 Unknown History cyanocobalamin (vitamin B-12) 1,000 mcg PO DAILY vitamin 07/22/21 Unknown History 1,000 mcg tablet furosemide 40 mg tablet (Lasix) 60 mg PO DAILY water pill 12/16/21 Unknown History qreevmlc-bq-wdoxx 300 mcg-K 60 1 tab PO DAILY supplement 12/16/21 Unknown History mcg-lycop 600 mcg-lutein 300 mcg tablet (Centrum Silver Men) nitroglycerin 0.4 mg sublingual 0.4 mg sublingual Q5M PRN Chest 04/02/22 Unknown Rx tablet Pain #25 tabs ascorbic acid (vitamin C) 250 mg 250 mg PO DAILY supplement 05/22/22 Unknown History tablet (Vitamin C) magnesium oxide 420 mg tablet 420 mg PO DAILY supplement 05/22/22 Unknown History L.acidophil,salivari-Bifido 1 cap PO DAILY #30 caps 10/05/22 Unknown Rx bifidum-Strep thermoph 175 mg capsule (Acidophilus Probiotic Blend) metoprolol tartrate 50 mg tablet 50 mg PO BID heart #180 tabs 10/26/22 Unknown Rx fluoxetine 40 mg capsule 40 mg PO DAILY 12/18/22 Unknown History polysaccharide iron complex 150 mg 150 mg PO DAILY 12/18/22 Unknown History iron capsule (iFerex 150) potassium chloride 20 mEq 20 meq PO DAILY 12/18/22 Unknown History tablet,extended release(part/cryst) levothyroxine 50 mcg tablet 50 mcg PO DAILY 11/20/23 Unknown History Allergy/AdvReac Type Severity Reaction Status Date / Time No Known Allergies Allergy Verified 07/08/23 11:36 Family History Father Cancer Lung Mother Heart disease Brother Heart disease CVA (cerebral vascular accident) Brother Heart disease Brother Heart disease Surgical History S/P cholecystectomy H/O cardiac catheterization History of appendectomy Hx of CABG History of coronary artery stent placement History of bilateral knee replacement History of coronary artery bypass graft x 3 (~05/27/21) History of total left knee replacement History of total right knee replacement Stented coronary artery (04/14/07) Social History household members: spouse housing: apartment pets and animals: No Smoking Status: Never smoker alcohol intake: never substance use type: does not use caffeine: Yes Type: carbonated beverages Number of servings: 1 ROS ROS ED Constitutional Constitutional ED: Denies chills, fever(s) or sweats Eyes Eyes: Denies change in vision ENT ENT ED: Denies dysphagia or sore throat Cardiovascular Cardiovascular: Denies chest pain, leg edema, palpitations or racing heartbeat Respiratory/Chest Respiratory/Chest: Denies cough, dyspnea or dyspnea on exertion Gastrointestinal Gastrointestinal: Reports nausea and vomiting; Denies abdominal pain or diarrhea Genitourinary Genitourinary ED: Reports urinary frequency; Denies dysuria or hematuria Musculoskeletal Musculoskeletal: Denies back pain, extremity pain or neck pain Integumentary Reports wounds; Denies rash Neurologic Neurologic: Denies headache(s), paresthesias or weakness EXAM Physical Exam Const Vital Signs: 11/20/23 14:37 11/20/23 14:44 11/20/23 15:44 Temperature 98.6 F 98.6 F 98.2 F Temperature Source Oral Oral Oral Pulse Rate 115 H 100 78 Respiratory Rate 14 22 H 16 Respiratory Effort Respiratory Pattern Blood Pressure 121/76 H 117/77 129/79 H Blood Pressure Mean 91 90 95 Pulse Ox 98 99 98 Oxygen Delivery Method Room Air Room Air Room Air 11/20/23 16:00 11/20/23 16:31 11/20/23 17:00 Temperature 98.3 F 97.8 F Temperature Source Oral Oral Pulse Rate 82 116 H Respiratory Rate 16 18 Respiratory Effort Normal Respiratory Pattern Normal Blood Pressure 137/77 H 132/84 H Blood Pressure Mean 97 100 Pulse Ox 99 97 Oxygen Delivery Method Room Air Room Air 11/20/23 18:00 Temperature 98 F Temperature Source Oral Pulse Rate 100 Respiratory Rate 16 Respiratory Effort Respiratory Pattern Blood Pressure 134/79 H Blood Pressure Mean 97 Pulse Ox 98 Oxygen Delivery Method Room Air Positive well nourished and well developed Constitutional Narrative: Hard of hearing, nontoxic General Appearance ED: well developed and NAD HEENT Reports moist mucous membranes normocephalic and atraumatic Eyes EOMs intact bilaterally and conjunctivae normal General Eye ED: Yes normal appearance of both eyes Neck no lymphadenopathy and supple General: Negative for tenderness Chest Wall Chest: Negative for tenderness Resp normal respiratory effort and normal air movement Effort and Inspection: symmetric chest movement; Negative for respiratory distress Cardio no murmurs Rate: tachycardic Rhythm: abnormal rhythm Peripheral Pulses: pulses 2+ throughout GI normal to inspection, nondistended, normoactive bowel sounds and non-tender GI Narrative: Negative Shaikh's or McBurney's. Palpation: Negative for guarding or rebound tenderness present Back/Spine no CVA tenderness and no thoracic nor lumbar tenderness Extremity Extremity Narrative: Right lower extremity: Calf with chronic venous stasis changes, no calf tenderness. Left lower extremity: No medial thigh or calf tenderness. There is circumferential erythema to the lower leg extending to the dorsal foot. There is no crepitus. Does not cross the knee joint. Skin intact. Neuro vas intact. General Extremety ED: Negative for edema or tenderness General Extremity: Negative for edema Neuro oriented x3 and no sensory deficits noted Sensorium / Orientation: awake and alert Skin no rashes or lesions noted and no wounds MDM MDM MDM Narrative Medical decision making narrative: Interventions / MDM: Differential diagnosis: Left lower leg cellulitis, nausea vomiting, electrolyte abnormalities, dehydration Diagnosis considered but do not suspect: No tenderness in the legs for concerns for DVT. My EKG interpretation: A-fib rate of 99, no ST changes. PVCs noted. Imaging independently reviewed and interpreted by myself: Left tib-fib 2 views: No acute process, no soft tissue gas. External documents reviewed: N/A Test considered but not ordered:N/A ED course: Patient nausea vomiting last couple days and they keep things down. Fluids Zofran labs will be drawn. Left leg erythema is outlined. Will get x-ray. Will draw sepsis labs due to tachycardia and slight tachypnea on initial vitals. 1725: Labs stable white count stable. Creatinine 1.44 stable from previous. Lactic acid 1.9. Rate controlled A-fib on EKG. No vomiting. COVID returned negative. However on reevaluation of his leg there is erythema that extended beyond the initial outline. Cover with Ancef and vancomycin. I will speak with hospitalist for admission. I spoke with Dr. Membreno for admission. Re-evaluation: stable Disposition discussed with patient/family/significant other: Patient Case discussed with consulting clinician: Hospitalist This note was generated with [employer] software. It may contain incorrect words, spelling, and punctuation that were not noted in checking the note before signing. Lab Data Attestation: I reviewed the patient's lab results. Labs: Laboratory Results - last 24 hr 11/20/23 11/20/23 15:10 16:09 WBC 8.4 RBC 4.62 Hgb 14.4 Hct 44.2 MCV 95.7 H MCH 31.2 MCHC 32.6 RDW Std Deviation 49.9 H RDW Coeff of Sylwia 14.2 Plt Count 107 L MPV 9.9 Immature Gran % (Auto) 0.400 Neut % (Auto) 80.4 H Lymph % (Auto) 9.0 L Evans % (Auto) 8.9 Eos % (Auto) 1.1 Baso % (Auto) 0.2 Absolute Neuts (auto) 6.8 Absolute Lymphs (auto) 0.76 L Nucleated RBC % 0 Sodium 138 Potassium 4.2 Chloride 106 Carbon Dioxide 26.0 Anion Gap 5 BUN 29 H Creatinine 1.44 H Estim Creat Clear Calc 50.82 Est GFR (MDRD) Af Amer 61 Est GFR (MDRD) Non-Af 50 L BUN/Creatinine Ratio 20.1 H Glucose 120 H Lactic Acid 1.9 Calcium 9.0 Total Bilirubin 1.10 H AST 24 ALT 27 Alkaline Phosphatase 101 Total Protein 6.2 L Albumin 2.8 L Globulin 3.4 Albumin/Globulin Ratio 0.8 L Radiography Diagnostic Testing: Clinical Impression(s) from Imaging Studies Tibia/Fibula X-Ray 11/20/23 15:17 IMPRESSION: No acute disease Electronically Signed: Elroy Almeida MD at 16:45 EDT , Discharge Plan Dx/Rx/DC Orders Clinical Impression: Cellulitis of left leg, Chronic kidney disease, stage 3a, Dehydration, Nausea & vomiting, Atrial fibrillation with normal ventricular rate Disposition Disposition: Acute Care [facility] Discharge Date/Time: 11/20/23 18:59
[2023-11-20 15:29] LABS: Absolute Lymphocyte Count 0.76 X10^3/uL (0.83-4.51); Absolute Neutrophil Count 6.8 X10^3/uL (2.0-7.7); Basophil# 0.02 X10^3/uL; Basophil% 0.2 % (0-1); Eosinophil# 0.09 X10^3/uL; Eosinophils% 1.1 % (0-5); Hematocrit 44.2 % (40-54); Hemoglobin 14.4 g/dL (13.0-16.5); Lymphocyte # 0.76 X10^3/ul (0.83-4.51); Mean Corp Hgb Conc 32.6 g/dL (32-36); Mean Corpuscular Hgb 31.2 pg (27.0-32.0); Mean Corpuscular Volume 95.7 fL (80-94); Mean Platelet Vol. 9.9 fl (6.2-12.0); Monocyte# 0.75 X10^3/uL; Monocyte% 8.9 % (0-10); NRBC Flagged by Analyzer 0 % (0-5); Neutrophil # 6.76 X10^3/uL (2.7-7.7); Neutrophil % 80.4 % (47-70); Platelet Count 107 K/mm3 (150-450); RBC Distribution Width CV 14.2 % (11.6-14.6); RBC Distribution Width SD 49.9 fl (35.1-43.9); Red Blood Count 4.62 M/mm3 (4.6-6.2); White Blood Count 8.4 K/mm3 (4.4-11.0)
[2023-11-20 15:48] LABS: ALB/GLOB Ratio 0.8 RATIO (0.9-2.4); AST(SGOT) 24 U/L (15-37); Alanine Aminotransfer ALT/SGPT 27 U/L (16-61); Albumin, Serum 2.8 g/dL (3.2-5.0); Alkaline Phosphatase 101 U/L (45-117); Anion Gap 5 (5-15); BUN 29 mg/dL (7-18); BUN/Creat Ratio 20.1 RATIO (10-20); Chloride 106 mmol/L (98-107); Creatinine, Serum 1.44 mg/dL (0.70-1.30); EST Glomerular Filtration Rate 50 mL/min (>60); Est Glom Filt Rate - Afr Amer 61 mL/min (>60); Estimated Creatinine Clearance 50.82 ml/min; Globulin 3.4 g/dL (2.2-4.2); Glucose 120 mg/dL (74-106); Potassium 4.2 mmol/L (3.5-5.1); Protein, Total 6.2 g/dL (6.4-8.2); Sodium Level 138 mmol/L (136-145)
[2023-11-20] MEDS: 0.9% Normal Saline (500mL Bag) 500 ML 999 ML IV (16:15)
[2023-11-20] MEDS: Ondansetron 4 MG/2 ML Vial IV (16:15)
[2023-11-20 16:40] LABS: Lactic Acid 1.9 mmol/L (0.4-1.9)
[2023-11-20] MEDS: Cefazolin 2 GM in 0.9% Normal Saline (100mL Bag) 100 ML IV (17:44)
[2023-11-20] MEDS: Vancomycin HCl 2,000 MG in 0.9% Normal Saline (500mL Bag) 500 ML 250 MG IV (18:05)
--- NOTE | 2023-11-20 18:18 | HP.PCM.HOS_ITS ---
HPI - General General Date of Admission: 11/20/23 Date of Service: 11/20/23 Chief Complaint: Left lower extremity cellulitis HPI Narrative ERICKA SHELDON, is a 78 M with a history of sepsis secondary to lower extremity cellulitis, CAD status post CABG, CKD, hard of hearing, A-fib, hypothyroid, GERD who presented [facility] ED 11/20/2023 due to nausea, vomiting, weakness, and left lower extremity cellulitis for several days. In the ED CBC with slight left shift but no overt leukocytosis, vitally stable, creatinine roughly at baseline however leg was outlined and on MD reeval it had already spread beyond that so given the severity, patient history, progression just during ED visit patient was given IV Vanco and cefazolin hospitalist contacted for admission. Patient evaluated at bedside, he reports that on Wednesday night he went to bed and was having chills but he thought it was due to the cold weather, on morning he continued to be very cold and developed nausea and vomiting and generalized weakness and around that same time he had worsening left lower extremity erythema and cellulitis that progressed. Denied fevers but does report being very cold over the past several days. No abdominal pain, no diarrhea or constipation, no urinary complaints. Reports he has a small wound on left lower extremity due to his CABG 2 years ago where his vein was harvested and it is never completely closed. Patient denies any significant pain in the leg, no pain in the joint. COUNT INCLUDES THE [facility] Medical History Pseudomonas aeruginosa infection Cardiology follow-up encounter History of echocardiogram Wears glasses Bleeding tendency Ulcer Hiatal hernia High cholesterol History of stress test Hearing loss, left Hearing loss, right Cancer Anemia Anxiety Kidney disease Non-smoker CPAP (continuous positive airway pressure) dependence Sleep apnea Atrial fibrillation Chest pain TIA (transient ischemic attack) Hearing deficit Obesity (BMI 35.0-39.9 without comorbidity) Lipodermatosclerosis Right leg swelling Left leg swelling Ulcer of left calf Hypothyroidism Chronic kidney disease, stage III (moderate) Chronic anticoagulation CAD (coronary artery disease) History of left heart catheterization (LHC) (~05/20/21) Sleep apnea Depression Chronic depression Iron deficiency anemia Chronic kidney disease, stage 3 Brantley's esophagus with esophagitis GERD (gastroesophageal reflux disease) Hyperlipidemia Essential hypertension Obstructive sleep apnea History of septic shock (04/02/16) Atrial fibrillation Atherosclerosis of coronary artery of [place] heart without angina pectoris Home Medications ?Medication ?Instructions ?Recorded ?Last Taken ?Type apixaban 5 mg tablet (Eliquis) 5 mg PO BID blood thinner 11/07/18 10/04/22 History atorvastatin 40 mg tablet 40 mg PO QHS cholesterol 11/07/18 Unknown History pantoprazole 40 mg tablet,delayed 40 mg PO DAILY gerd 11/07/18 10/07/22 History release trospium 20 mg tablet 20 mg PO BID bladder 07/18/19 12/03/20 History acetaminophen 500 mg tablet 1,000 mg PO Q6H PRN pain 07/22/21 Unknown History cyanocobalamin (vitamin B-12) 1,000 mcg PO DAILY vitamin 07/22/21 Unknown History 1,000 mcg tablet furosemide 40 mg tablet (Lasix) 60 mg PO DAILY water pill 12/16/21 Unknown History sxbxacox-pf-pjhmh 300 mcg-K 60 1 tab PO DAILY supplement 12/16/21 Unknown History mcg-lycop 600 mcg-lutein 300 mcg tablet (Centrum Silver Men) nitroglycerin 0.4 mg sublingual 0.4 mg sublingual Q5M PRN Chest 04/02/22 Unknown Rx tablet Pain #25 tabs ascorbic acid (vitamin C) 250 mg 250 mg PO DAILY supplement 05/22/22 Unknown History tablet (Vitamin C) magnesium oxide 420 mg tablet 420 mg PO DAILY supplement 05/22/22 Unknown History L.acidophil,salivari-Bifido 1 cap PO DAILY #30 caps 10/05/22 Unknown Rx bifidum-Strep thermoph 175 mg capsule (Acidophilus Probiotic Blend) metoprolol tartrate 50 mg tablet 50 mg PO BID heart #180 tabs 10/26/22 Unknown Rx fluoxetine 40 mg capsule 40 mg PO DAILY 12/18/22 Unknown History polysaccharide iron complex 150 mg 150 mg PO DAILY 12/18/22 Unknown History iron capsule (iFerex 150) potassium chloride 20 mEq 20 meq PO DAILY 12/18/22 Unknown History tablet,extended release(part/cryst) levothyroxine 50 mcg tablet 50 mcg PO DAILY 11/20/23 Unknown History Allergy/AdvReac Type Severity Reaction Status Date / Time No Known Allergies Allergy Verified 07/08/23 11:36 Family History Father Cancer Lung Mother Heart disease Brother Heart disease CVA (cerebral vascular accident) Brother Heart disease Brother Heart disease Surgical History S/P cholecystectomy H/O cardiac catheterization History of appendectomy Hx of CABG History of coronary artery stent placement History of bilateral knee replacement History of coronary artery bypass graft x 3 (~05/27/21) History of total left knee replacement History of total right knee replacement Stented coronary artery (04/14/07) Social History household members: spouse housing: apartment pets and animals: No Smoking Status: Never smoker alcohol intake: never substance use type: does not use caffeine: Yes Type: carbonated beverages Number of servings: 1 ROS ROS Narrative General: Chills HENT: Denies headache, denies stuffy nose, denies sore throat EYES: Denies changes in vision Resp: Denies cough, denies shortness of breath Cardiac: Denies chest pain GI: Denies abdominal pain, denies changes in bowel, has had some nausea and vomiting : Denies changes in urination Extremity: Chronic bilateral lower extremity swelling but now left greater than right MSK: Generalized weakness Neuro: Denies any numbness/tingling Heme: Denies any bleeding or bruising Skin: Left lower extremity cellulitis extending up leg Psychiatric: No complaints voiced Vital Signs Vital Signs Vital Signs: 11/20/23 14:37 11/20/23 14:44 11/20/23 15:44 Temperature 98.6 F 98.6 F 98.2 F Temperature Source Oral Oral Oral Pulse Rate 115 H 100 78 Respiratory Rate 14 22 H 16 Respiratory Effort Respiratory Pattern Blood Pressure 121/76 H 117/77 129/79 H Blood Pressure Mean 91 90 95 Pulse Ox 98 99 98 Oxygen Delivery Method Room Air Room Air Room Air 11/20/23 16:00 11/20/23 16:31 11/20/23 17:00 Temperature 98.3 F 97.8 F Temperature Source Oral Oral Pulse Rate 82 116 H Respiratory Rate 16 18 Respiratory Effort Normal Respiratory Pattern Normal Blood Pressure 137/77 H 132/84 H Blood Pressure Mean 97 100 Pulse Ox 99 97 Oxygen Delivery Method Room Air Room Air 11/20/23 18:00 Temperature 98 F Temperature Source Oral Pulse Rate 100 Respiratory Rate 16 Respiratory Effort Respiratory Pattern Blood Pressure 134/79 H Blood Pressure Mean 97 Pulse Ox 98 Oxygen Delivery Method Room Air Weight Weight: 103 kg Body Mass Index (BMI) 31.6 Physical Exam Narrative General: Alert, oriented, no apparent distress HEENT: Atraumatic, normocephalic Eyes: Anicteric, normal conjunctiva, extraocular movements grossly intact Neck: Supple Respiratory: Clear to auscultation bilaterally, normal respiratory effort Cardiovascular: Irregularly irregular GI: Soft, nontender, nondistended Extremities: Bilateral lower extremity edema left greater than right Musculoskeletal: Moving all extremities Neuro: No overt focal neurological deficits Skin: Left lower extremity with a small wound on lower anterior valentin without drainage, 0.5 x 0.5 cm, cellulitis extending from top of foot to right below the knee and somewhat further posteriorly without crepitus or pain Psych: Cooperative Results Lab / Micro Data 11/20/23 15:10 11/20/23 15:10 Labs: Laboratory Results - last 24 hr 11/20/23 15:10: WBC 8.4, RBC 4.62, Hgb 14.4, Hct 44.2, MCV 95.7 H, MCH 31.2, MCHC 32.6, RDW Std Deviation 49.9 H, RDW Coeff of Sylwia 14.2, Plt Count 107 L, MPV 9.9, Immature Gran % (Auto) 0.400, Neut % (Auto) 80.4 H, Lymph % (Auto) 9.0 L, Towns % (Auto) 8.9, Eos % (Auto) 1.1, Baso % (Auto) 0.2, Absolute Neuts (auto) 6.8, Absolute Lymphs (auto) 0.76 L, Nucleated RBC % 0, Sodium 138, Potassium 4.2, Chloride 106, Carbon Dioxide 26.0, Anion Gap 5, BUN 29 H, Creatinine 1.44 H , Estim Creat Clear Calc 50.82, Est GFR (MDRD) Af Amer 61, Est GFR (MDRD) Non-Af 50 L, BUN/Creatinine Ratio 20.1 H, Glucose 120 H, Calcium 9.0, Total Bilirubin 1.10 H, AST 24, ALT 27, Alkaline Phosphatase 101, Total Protein 6.2 L, Albumin 2.8 L, Globulin 3.4, Albumin/Globulin Ratio 0.8 L 11/20/23 16:09: Lactic Acid 1.9 Micro: Microbiology 11/20/23 16:09 Mucosa - Nose Coronavirus COVID-19 PCR - Final Imaging Radiology Impression Tibia/Fibula X-Ray 11/20/23 15:17 IMPRESSION: No acute disease Electronically Signed: Elroy Almeida MD at 16:45 EDT Reading Location ID and State: [facility] / [place] Tel , Service support , Assessment & Plan Assessment/Plan (1) Cellulitis of left leg: PLAN: Plan # Left lower extremity cellulitis -Patient presently vitally stable however ED provider marked leg and on his reevaluation history of already spread past the lolis, tib-fib x-ray with no acute disease, no crepitus or other sign of neck fasc or surgical emergency -Patient given vancomycin and Unasyn -Will switch to vancomycin and Zosyn given patient has grown Pseudomonas and wounds in the past -Small wound on anterior valentin from CABG surgery 2 years ago presume that this is the area infection was introduced but there is no drainage or anything that seems to be culturable at this time -Blood culture obtained in the ED, will follow results -Elevate leg # Nausea/vomiting/poor p.o. intake -Suspect secondary to underlying infection -Does not seem to have primary GI pathology -Patient given IV fluids, hold diuretics -Will give further gentle IV fluids at this time -Supportive care # History of CAD status post CABG -Continue metoprolol, statin, Eliquis #Hypothyroidism -Continue Synthroid #GERD -Continue PPI # Atrial fibrillation -Continue Eliquis and metoprolol #ROBINSON -Noted -Hearing aids currently in place #DVT ppx: Patient on Eliquis Lanette Membreno MD Charges/Coding Visit Charges Inpatient E&M: 34936 Init Hosp L2
--- NOTE | 2023-11-20 19:37 | PCM.RX.CS ---
Consult Antibiotic Management Pharmacy has been consulted to manage selected antibiotic: Vancomycin Type of Intervention Type of Consult: New start Suspected Infection Suspected Infection: Skin/Soft tissue Labs Labs: Sodium 138 mmol/L (136-145) 11/20/23 15:10 Potassium 4.2 mmol/L (3.5-5.1) 11/20/23 15:10 Chloride 106 mmol/L (98-107) 11/20/23 15:10 Carbon Dioxide 26.0 mmol/L (21.0-32.0) 11/20/23 15:10 Anion Gap 5 (5-15) 11/20/23 15:10 BUN 29 mg/dL (7-18) H 11/20/23 15:10 Creatinine 1.44 mg/dL (0.70-1.30) H 11/20/23 15:10 Est GFR (MDRD) Af Amer 61 mL/min (>60) 11/20/23 15:10 Est GFR (MDRD) Non-Af 50 mL/min (>60) L 11/20/23 15:10 BUN/Creatinine Ratio 20.1 RATIO (10-20) H 11/20/23 15:10 Glucose 120 mg/dL (74-106) H 11/20/23 15:10 Microbiology Microbiology: Microbiology 11/20/23 16:09 Mucosa - Nose Coronavirus COVID-19 PCR - Final Dosing Weight Weight used for dosin kg Estimated Creatinine Clearance Estimated Creatinine Clearance: 51 Goal Trough Goal Trough: 15-20 mcg/mL Pharmacy Plan for Drug Dosing Pharmacy Plan for Drug Dosing: Pharmacy Service will continue to monitor and adjust dosing as required. Follow-Up Labs Follow-Up Labs: Trough: Vancomycin Date/Time Labs Ordered Labs to be done on [date and time ordered]: 11/22/23 @5086
[2023-11-20] MEDS: 0.9% Normal Saline (1000mL) 1,000 ML 75 ML IV (19:59)
[2023-11-20] MEDS: Piperacil/Tazobactam 4.5 GM in 0.9% Normal Saline (100mL MB+) 100 ML IV (21:56)
[2023-11-20] MEDS: Atorvastatin Calcium 40 MG Tablet PO (21:57)
[2023-11-20] MEDS: APIXABAN 5 MG TABLET PO (21:57)
[2023-11-20] MEDS: Metoprolol Tartrate 50 MG Tablet PO (21:57)
[2023-11-21] VITALS (9 sets, daily range): BP systolic 107–134; BP diastolic 71–92; PULSE 69–90; RESP 16–20; TEMP 36.6–37.1; O2SAT 96–100
[2023-11-21] MEDS: Vancomycin IV 1,000 MG/200 ML BAG 200 MG IV ×2 (05:13→18:02)
[2023-11-21 05:49] LABS: Absolute Lymphocyte Count 0.74 X10^3/uL (0.83-4.51); Absolute Neutrophil Count 5.1 X10^3/uL (2.0-7.7); Basophil# 0.02 X10^3/uL; Basophil% 0.3 % (0-1); Eosinophil# 0.11 X10^3/uL; Eosinophils% 1.6 % (0-5); Hematocrit 39.8 % (40-54); Lymphocyte # 0.74 X10^3/ul (0.83-4.51); Mean Corp Hgb Conc 32.7 g/dL (32-36); Mean Corpuscular Hgb 31.3 pg (27.0-32.0); Mean Corpuscular Volume 95.9 fL (80-94); Mean Platelet Vol. 10.1 fl (6.2-12.0); Monocyte# 0.75 X10^3/uL; Monocyte% 11.2 % (0-10); NRBC Flagged by Analyzer 0 % (0-5); Neutrophil # 5.07 X10^3/uL (2.7-7.7); Neutrophil % 75.6 % (47-70); Platelet Count 102 K/mm3 (150-450); RBC Distribution Width CV 13.9 % (11.6-14.6); RBC Distribution Width SD 49.2 fl (35.1-43.9); Red Blood Count 4.15 M/mm3 (4.6-6.2); White Blood Count 6.7 K/mm3 (4.4-11.0)
[2023-11-21 06:30] LABS: ALB/GLOB Ratio 0.8 RATIO (0.9-2.4); AST(SGOT) 20 U/L (15-37); Alanine Aminotransfer ALT/SGPT 24 U/L (16-61); Albumin, Serum 2.5 g/dL (3.2-5.0); Alkaline Phosphatase 85 U/L (45-117); Anion Gap 5 (5-15); BUN 25 mg/dL (7-18); BUN/Creat Ratio 20.3 RATIO (10-20); Calcium,Total 8.6 mg/dL (8.5-10.1); Chloride 111 mmol/L (98-107); Creatinine, Serum 1.23 mg/dL (0.70-1.30); EST Glomerular Filtration Rate 60 mL/min (>60); Est Glom Filt Rate - Afr Amer 73 mL/min (>60); Glucose 104 mg/dL (74-106); Potassium 3.9 mmol/L (3.5-5.1); Protein, Total 5.5 g/dL (6.4-8.2); Sodium Level 140 mmol/L (136-145)
[2023-11-21] MEDS: Piperacil/Tazobactam 3.375 GM in 0.9% Normal Saline (50mL MB+) 50 ML IV ×3 (06:52→20:20)
[2023-11-21] MEDS: Metoprolol Tartrate 50 MG Tablet PO ×2 (08:19→20:20)
[2023-11-21] MEDS: Ensure Plus High Protein 120 ML LIQUID PO (08:19)
[2023-11-21] MEDS: Pantoprazole Sodium 40 MG Tablet PO (08:20)
[2023-11-21] MEDS: APIXABAN 5 MG TABLET PO ×2 (08:20→20:20)
[2023-11-21] MEDS: Fluoxetine HCl 40 MG CAPSULE PO (08:20)
[2023-11-21] MEDS: Tolterodine Tartrate 2 MG CAP.SA PO (08:20)
[2023-11-21] MEDS: Levothyroxine 50 MCG Tablet PO (10:50)
[2023-11-21 10:52] LABS: Bacteria 0 SEEN /hpf (None Seen); Mucous, Urine 0 SEEN /hpf (<or=2+); Red Blood Cells-Urine 0 SEEN /hpf (0-5); Squamous Epithelial Cells - UA 0 SEEN /hpf (0-5)
[2023-11-21 10:57] LABS: Color, Urine Yellow (Yellow); Glucose, Dipstick Normal (Normal); Ketone-Dipstick Negative (Negative); Leukocyte Esterase-Dipstick 100 /ul (Negative); Nitrite-Dipstick Negative (Negative); Occult Blood-Urine 10 /ul (Negative); Protein-Dipstick 15 mg/dl (Negative); Specific Gravity, Urine 1.015 (1.002-1.030); Urine Bilirubin Dipstick Negative (Negative); Urine Clarity Clear (Clear); Urine Urobilinogen 4 mg/dl (Normal)
[2023-11-21 11:12] LABS: White Blood Cells 0-5 SEEN /hpf (0-5)
--- NOTE | 2023-11-21 16:19 | PN.HOSP_ITS ---
Reason for Visit Reason for Visit: Left lower extremity redness and swelling Subjective Subjective Patient states overall he feels like his leg is improved today. Has a small wound that he states was from previous cardiac bypass surgery 2 years ago that intermittently is open. I suspect this is the nidus for his infection. Patient states he is feeling better and plans to go home at discharge. Objective Data Objective Data Vital Signs: Vital Signs Temp Pulse Resp BP Pulse Ox O2 Del Method 98.1 F 80 20 H 125/78 H 100 Room Air 11/21/23 13:34 11/21/23 13:37 11/21/23 13:34 11/21/23 13:34 11/21/23 13:34 11/21/23 13:34 Oxygen Delivery Method Room Air Weight: 103 kg Body Mass Index (BMI) 35.5 Intake & Output: Intake and Output for Last 24 Hours 11/19/23 11/20/23 11/21/23 23:59 23:59 23:59 Intake Total 1850 / 1850 1450 / 1450 Output Total 300 / 300 675 / 675 Balance 1550 / 1550 775 / 775 Lab / Micro Data 11/21/23 04:57 11/21/23 04:57 Labs: Laboratory Results - last 24 hr 11/20/23 16:09: Lactic Acid 1.9 11/21/23 04:57: WBC 6.7, RBC 4.15 L, Hgb 13.0, Hct 39.8 L, MCV 95.9 H, MCH 31.3, MCHC 32.7, RDW Std Deviation 49.2 H, RDW Coeff of Sylwia 13.9, Plt Count 102 L, MPV 10.1, Immature Gran % (Auto) 0.300, Neut % (Auto) 75.6 H, Lymph % (Auto) 11.0 L, [place] % (Auto) 11.2 H, Eos % (Auto) 1.6, Baso % (Auto) 0.3, Absolute Neuts (auto) 5.1, Absolute Lymphs (auto) 0.74 L, Nucleated RBC % 0, Sodium 140, Potassium 3.9, Chloride 111 H, Carbon Dioxide 25.0, Anion Gap 5, BUN 25 H, Creatinine 1.23, Estim Creat Clear Calc 55.70, Est GFR (MDRD) Af Amer 73, Est GFR (MDRD) Non-Af 60, BUN/Creatinine Ratio 20.3 H, Glucose 104, Calcium 8.6, Total Bilirubin 0.80, AST 20, ALT 24, Alkaline Phosphatase 85, Total Protein 5.5 L, A lbumin 2.5 L, Globulin 3.0, Albumin/Globulin Ratio 0.8 L 11/21/23 10:00: Urine Color Yellow, Urine Clarity Clear, Urine pH 5.0, Ur Specific [place] 1.015, Urine Protein 15 H, Urine Glucose (UA) Normal, Urine Ketones Negative, Urine Occult Blood 10 H, Urine Nitrite Negative, Urine Bilirubin Negative, Urine Urobilinogen 4 H, Ur Leukocyte Esterase 100 H, Urine RBC 0 SEEN, Urine WBC 0-5 SEEN, Ur Squamous Epith Cells 0 SEEN, Urine Bacteria 0 SEEN, Urine Mucus 0 SEEN Micro: Microbiology 11/20/23 16:09 Mucosa - Nose Coronavirus COVID-19 PCR - Final Radiography Diagnostic Testing: Radiology Impression Tibia/Fibula X-Ray 11/20/23 15:17 IMPRESSION: No acute disease Electronically Signed: Elroy Almeida MD at 16:45 EDT , Physical Exam Const alert, oriented x3, no apparent distress and well nourished Constitutional Narrative: Obese, elderly, white male, sitting up in a chair at bedside with his legs reclined, watching television, appears comfortable, nontoxic HEENT head/scalp atraumatic and moist oral mucous membranes HEENT Narrative: Dentition is poor, no thrush, Mallampati is 3 Head and Scalp: normocephalic Resp normal respiratory effort, no retractions, no use of accessory muscles and clear to auscultation bilaterally Auscultation: Negative for rales, rhonchi or wheezes Cardio regular rate, S1 normal heart sound, S2 normal heart sound, no murmurs, no rub, no gallops and no clicks Cardio Narrative: Irregularly irregular rate with regular rhythm GI normal to inspection, nondistended, normoactive bowel sounds, soft to palpation and non-tender Extremity Extremity Narrative: Bilateral lower extremity edema noted, left significantly greater than right, small area of right erythema which patient reports is chronic on the medial mid calf, marked erythema of the left lower extremity from just below his knee to his midfoot, no cyanosis or clubbing Skin Skin Narrative: Left lower extremity with erythema retracting inside the outlined area from yesterday, small wound in the distal mid anterior medial distal lower extremity- no drainage, left lower extremity with increased tissue temperature, edema is pitting Neuro oriented x3 and moves all extremities Speech: speech normal Psych affect normal Psych Narrative: Very pleasant, interacts appropriately Assessment & Plan Assessment/Plan (1) Nausea & vomiting: (2) Cellulitis of left leg: (3) Dehydration: PLAN: Plan Left lower extremity cellulitis -Slight improvement since yesterday and patient states he is overall feeling better -Imaging was unremarkable for any suggestion of invasive infection -Does have previous Pseudomonas and Staph aureus (MSSA) lower extremity infection -Will continue vancomycin and Zosyn for now--> unfortunately may need to cover both at discharge as no cultures have been able to be obtained as there are no open wounds or seeping anywhere -Continue elevation of leg -Blood cultures are pending -Small wound on his valentin has been recurrent since his CABG 2 years ago--> highly suspect nidus for infection -Patient did not have a leukocytosis on presentation but did have a considerable left shift which is improving -Patient is fully anticoagulated so suspicion for thrombophlebitis is low Nonhealing ulceration of left lower extremity -Has been problematic since his CABG surgery in 2021 -It appears that he was at the wound clinic and the ulcer had healed out as of 03/08/2023 but has recurred since that point in time -Consider referral to wound center at discharge Nausea/vomiting/poor p.o. intake with dehydration -Highly suspect secondary to the amount of infection -Resolved -Restart diuretics -IV fluids have been completed CKD stage IIIb -Baseline serum creatinine runs between 1.3 and 1.5 -Today is 1.23 -Restart home Lasix Hyperbilirubinemia -Mild on admission 1.10 -Now resolved -Likely due to infection CAD/hyperlipidemia/essential hypertension/pulmonary hypertension/valvular heart disease -CABG x3- MOORE - LAD, SVG - Ramus, SVG - PDA; w/MAZE procedure and Left Atrial Appendage Clip clip-size #40 @ [facility] Dr. Posey 05/27/21 -Continue metoprolol -Restart Lasix -Continue home atorvastatin Persistent atrial fibrillation -Has had Maze procedure along with atrial clip with his bypass -Currently in rate controlled A-fib -Continue home metoprolol -Continue home Eliquis GERD/Brantley's esophagus -Continue home PPI Hypothyroidism -Continue home levothyroxine Complex sleep apnea syndrome -Patient follows with sleep medicine Depression/anxiety -Continue home fluoxetine DVT prophylaxis -continue home apixaban CODE STATUS -Full code Charges/Coding Visit Charges Inpatient E&M: 43480 Subs Hosp L2
[2023-11-21] MEDS: Furosemide 20 MG Tablet 60 MG PO (16:47)
[2023-11-21] MEDS: Atorvastatin Calcium 40 MG Tablet PO (20:20)
[2023-11-22] MEDS: Piperacil/Tazobactam 3.375 GM in 0.9% Normal Saline (50mL MB+) 50 ML IV ×3 (04:49→20:12)
[2023-11-22 04:50] VITALS: BP 108/69; PULSE 75; RESP 16; TEMP 36.7; O2SAT 98
[2023-11-22 06:11] LABS: Absolute Lymphocyte Count 0.61 X10^3/uL (0.83-4.51); Absolute Neutrophil Count 4.2 X10^3/uL (2.0-7.7); Basophil# 0.04 X10^3/uL; Basophil% 0.7 % (0-1); Eosinophil# 0.22 X10^3/uL; Eosinophils% 3.8 % (0-5); Hematocrit 39.3 % (40-54); Hemoglobin 12.8 g/dL (13.0-16.5); Lymphocyte # 0.61 X10^3/ul (0.83-4.51); Lymphocyte % 10.6 % (19-41); Mean Corp Hgb Conc 32.6 g/dL (32-36); Mean Corpuscular Hgb 31.4 pg (27.0-32.0); Mean Corpuscular Volume 96.3 fL (80-94); Mean Platelet Vol. 9.7 fl (6.2-12.0); Monocyte# 0.64 X10^3/uL; Monocyte% 11.1 % (0-10); NRBC Flagged by Analyzer 0 % (0-5); Neutrophil # 4.22 X10^3/uL (2.7-7.7); Neutrophil % 73.1 % (47-70); Platelet Count 118 K/mm3 (150-450); RBC Distribution Width CV 13.7 % (11.6-14.6); Red Blood Count 4.08 M/mm3 (4.6-6.2); White Blood Count 5.8 K/mm3 (4.4-11.0)
[2023-11-22 06:32] LABS: Anion Gap 5 (5-15); BUN 22 mg/dL (7-18); BUN/Creat Ratio 15.2 RATIO (10-20); Calcium,Total 8.9 mg/dL (8.5-10.1); Chloride 109 mmol/L (98-107); Creatinine, Serum 1.45 mg/dL (0.70-1.30); EST Glomerular Filtration Rate 50 mL/min (>60); Est Glom Filt Rate - Afr Amer 60 mL/min (>60); Estimated Creatinine Clearance 47.25 ml/min; Glucose 119 mg/dL (74-106); Potassium 3.7 mmol/L (3.5-5.1); Sodium Level 141 mmol/L (136-145)
[2023-11-22 06:34] LABS: Vancomycin, Trough Level 18.7 ug/mL (5.0-15.0)
--- NOTE | 2023-11-22 06:49 | PCM.RX.CS ---
Consult Antibiotic Management Pharmacy has been consulted to manage selected antibiotic: Vancomycin Type of Intervention Type of Consult: Follow-up Suspected Infection Suspected Infection: Skin/Soft tissue Prior Doses of Antibiotics Prior Doses of Antibiotics Received/Current Regimen: Vancomycin 1000 mg Q12H last dose given 11/20 @ 1802 Labs Labs: Sodium 141 mmol/L (136-145) 11/22/23 05:50 Potassium 3.7 mmol/L (3.5-5.1) 11/22/23 05:50 Chloride 109 mmol/L (98-107) H 11/22/23 05:50 Carbon Dioxide 27.0 mmol/L (21.0-32.0) 11/22/23 05:50 Anion Gap 5 (5-15) 11/22/23 05:50 BUN 22 mg/dL (7-18) H 11/22/23 05:50 Creatinine 1.45 mg/dL (0.70-1.30) H 11/22/23 05:50 Est GFR (MDRD) Af Amer 60 mL/min (>60) 11/22/23 05:50 Est GFR (MDRD) Non-Af 50 mL/min (>60) L 11/22/23 05:50 BUN/Creatinine Ratio 15.2 RATIO (10-20) 11/22/23 05:50 Glucose 119 mg/dL (74-106) H 11/22/23 05:50 Vancomycin Trough 18.7 ug/mL (5.0-15.0) H 11/22/23 05:50 Microbiology Microbiology: Microbiology 11/20/23 16:09 Mucosa - Nose Coronavirus COVID-19 PCR - Final Dosing Weight Weight used for dosin kg Estimated Creatinine Clearance Estimated Creatinine Clearance: ~47 Goal Trough Goal Trough: 15-20 mcg/mL Pharmacy Plan for Drug Dosing Pharmacy Plan for Drug Dosing: Vancomycin trough = 18.7, continue present dosing of 1000 mg Q12H with trough in 2 days. Pharmacy Service will continue to monitor and adjust dosing as required. Follow-Up Labs Follow-Up Labs: Trough: Vancomycin Date/Time Labs Ordered Labs to be done on [date and time ordered]: 11/24/23 @ 6580
[2023-11-22] MEDS: Levothyroxine 50 MCG Tablet PO (06:51)
[2023-11-22] MEDS: Vancomycin IV 1,000 MG/200 ML BAG 200 MG IV ×2 (06:51→17:45)
--- NOTE | 2023-11-22 08:29 | PN.HOSP_ITS ---
Reason for Visit Reason for Visit: Diagnoses Dehydration (11/20/23) Cellulitis of left lower limb (11/20/23) Nausea with vomiting, unspecified (11/20/23) Subjective Subjective Patient is a 78-year-old gentleman presenting with swelling and redness involving the left lower extremity Objective Data Objective Data Vital Signs: Vital Signs Temp Pulse Resp BP Pulse Ox O2 Del Method 98.0 F 75 16 108/69 98 Room Air 11/22/23 04:50 11/22/23 04:50 11/22/23 04:50 11/22/23 04:50 11/22/23 04:50 11/22/23 04:50 Oxygen Delivery Method Room Air Weight: 103 kg Body Mass Index (BMI) 35.5 Intake & Output: Intake and Output for Last 24 Hours 11/20/23 11/21/23 11/22/23 23:59 23:59 23:59 Intake Total 1850 / 1850 1700 / 2100 450 / 450 Output Total 300 / 300 675 / 1050 725 / 725 Balance 1550 / 1550 1025 / 1050 -275 / -275 Lab / Micro Data 11/22/23 05:50 11/22/23 05:50 Labs: Laboratory Results - last 24 hr 11/21/23 10:00: Urine Color Yellow, Urine Clarity Clear, Urine pH 5.0, Ur Specific [place] 1.015, Urine Protein 15 H, Urine Glucose (UA) Normal, Urine Ketones Negative, Urine Occult Blood 10 H, Urine Nitrite Negative, Urine Bilirubin Negative, Urine Urobilinogen 4 H, Ur Leukocyte Esterase 100 H, Urine RBC 0 SEEN, Urine WBC 0-5 SEEN, Ur Squamous Epith Cells 0 SEEN, Urine Bacteria 0 SEEN, Urine Mucus 0 SEEN 11/22/23 05:50: WBC 5.8, RBC 4.08 L, Hgb 12.8 L, Hct 39.3 L, MCV 96.3 H, MCH 31.4, MCHC 32.6, RDW Std Deviation 49.0 H, RDW Coeff of Sylwia 13.7, Plt Count 118 L, MPV 9.7, Immature Gran % (Auto) 0.700, Neut % (Auto) 73.1 H, Lymph % (Auto) 10.6 L, [place] % (Auto) 11.1 H, Eos % (Auto) 3.8, Baso % (Auto) 0.7, Absolute Neuts (auto) 4.2, Absolute Lymphs (auto) 0.61 L, Nucleated RBC % 0, Sodium 141, Potassium 3.7, Chloride 109 H, Carbon Dioxide 27.0, Anion Gap 5, BUN 22 H, C reatinine 1.45 H, Estim Creat Clear Calc 47.25, Est GFR (MDRD) Af Amer 60, Est GFR (MDRD) Non-Af 50 L, BUN/Creatinine Ratio 15.2, Glucose 119 H, Calcium 8.9, V ancomycin Trough 18.7 H Micro: Microbiology 11/20/23 16:09 Mucosa - Nose Coronavirus COVID-19 PCR - Final Physical Exam Narrative GENERAL: cooperative HEENT: Atraumatic; normocephalic EYES; Anicteric, Normal Conjunctiva NECK; supple, normal thyroid, RESPIRATORY: Diminished to auscultation CARDIOVASCULAR: Irregularly irregular GI: soft, normoactive bowel sounds, : No Renal angle tenderness; EXTREMITIES: No edema, no clubbing, MUSCULOSKELETAL: no muscle wasting NEURO: Awake; no lateralizing signs. Skin: An area of extensive erythema from the knee to the ankle circumferentially involving the left lower extremity with an open scab on the anterior valentin without drainage PSYCH; Flat affect HEENT head/scalp atraumatic and moist oral mucous membranes Resp normal respiratory effort, no retractions, no use of accessory muscles and clear to auscultation bilaterally Auscultation: Negative for rales, rhonchi or wheezes Cardio regular rate, S1 normal heart sound, S2 normal heart sound, no murmurs, no rub, no gallops and no clicks Cardio Narrative: Irregularly irregular rate with regular rhythm GI normal to inspection, nondistended, normoactive bowel sounds, soft to palpation and non-tender Extremity Extremity Narrative: Bilateral lower extremity edema noted, left significantly greater than right, small area of right erythema which patient reports is chronic on the medial mid calf, marked erythema of the left lower extremity from just below his knee to his midfoot, no cyanosis or clubbing Skin Skin Narrative: Left lower extremity with erythema retracting inside the outlined area from yesterday, small wound in the distal mid anterior medial distal lower extremity- no drainage, left lower extremity with increased tissue temperature, edema is pitting Neuro oriented x3 and moves all extremities Speech: speech normal Psych affect normal Psych Narrative: Very pleasant, interacts appropriately Assessment & Plan Assessment/Plan (1) Nausea & vomiting: (2) Cellulitis of left leg: (3) Dehydration: PLAN: Plan Patient is a 78-year-old gentleman presenting with swelling and redness involving the left lower extremity 1. Left lower extremity cellulitis ? Admitted to regular nursing floor patient started on vancomycin and Zosyn. Has previous history of testing positive for Pseudomonas as well as Staph aureus 2. 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 Chronic kidney disease stage III ? Kidney function at baseline 4. Coronary artery disease ? Status post CABG. Patient is on guideline directed medical therapy 5. Hypertension ? Blood pressure controlled, home medications continued with dose adjustment as needed 6. Persistent A-fib ? With previous maze procedure and left atrial appendage clipping. Rate controlled on systemic anticoagulation with apixaban 7. Dyslipidemia ?Patient is on statin therapy, continued at home dose 8. Depression ? Patient is on fluoxetine 9. Hypothyroidism ? Patient is on levothyroxine home dose continued 10. GERD with Brantley's esophagus ? On PPI 11. Hypertension ? Blood pressure controlled, home medications continued with dose adjustment as needed 12. Chronic congestive heart failure with preserved ejection fraction ? Echo from 05/20/2021 demonstrated EF of 50% patient is on diuretic therapy with Lasix did continue. 13. Class II obesity with BMI of 36 ? Complicating care weight loss advised 14. DVT prophylaxis ? On apixaban Time spent in the patient's overall evaluation,decision-making process, review of diagnostic data, adjustment of management, discussion with other providers, nursing nursing and ancillary staff involved in patient's care documentation, 40 Minutes Charges/Coding Visit Charges Inpatient E&M: 31966 Subs Hosp L2
[2023-11-22] MEDS: Iron Polysaccharide Complex 150 MG CAPSULE PO (09:39)
[2023-11-22] MEDS: Cyanocobalamin 500 MCG Tablet 1000 MCG PO (09:39)
[2023-11-22] MEDS: Ascorbic Acid 500 MG Tablet 250 MG PO (09:39)
[2023-11-22] MEDS: APIXABAN 5 MG TABLET PO ×2 (09:39→20:14)
[2023-11-22] MEDS: Lactobacillis Acidophilus 1 CAP PO (09:39)
[2023-11-22 09:40] VITALS: PULSE 76
[2023-11-22] MEDS: Metoprolol Tartrate 50 MG Tablet PO ×2 (09:40→20:14)
[2023-11-22] MEDS: Fluoxetine HCl 40 MG CAPSULE PO (09:40)
[2023-11-22] MEDS: Tolterodine Tartrate 2 MG CAP.SA PO (09:40)
[2023-11-22] MEDS: Furosemide 20 MG Tablet 60 MG PO (09:41)
[2023-11-22] MEDS: Pantoprazole Sodium 40 MG Tablet PO (09:41)
[2023-11-22] MEDS: Magnesium Chloride 64 MG Delay Rel.Tablet 128 MG PO (09:41)
[2023-11-22 10:02] VITALS: BP 103/85; PULSE 76; RESP 18; TEMP 36.6; O2SAT 96
--- NOTE | 2023-11-22 10:10 | CASEMGMT ---
TONY GILLESPIE Assessment: Face to Face with pt for initial transition planning/care coordination assessment. RN VERNA introduced self and role at [facility], pt voices understanding and consents to assessment. Pt is A&O x4 and answers all questions appropriately at this time. Pt lying in bed in no distress. Care providers, pharmacy, and demographics verified/updated. Strata: 3 Admitting Dx: LLE Cellulitis PCP: Lorne Specialists: Sled Maker, NITIN, Gelacio- radiologist. Preferred Pharmacy: [facility] Insurance: Pt states started with [facility] the first of the month. Pt to bring in paperwork for hospital. [facility]. Prescription Benefit: yes LNOK: , Zaynab. Living Arrangements: Pt lives with in a 1 story home with zero steps to enter. ADLs: Pt reports I at home with ADLs and IADLs. Transportation: Pt drives self and denies concerns with transportation. DME: CPAP but does not use it, shower chair, ww. HHC/SNF: Previously at [facility], [facility]. Pt states would like to conisder [facility], will discuss with . Pt states if decides to use [facility] services, preference is [facility]. Pt denies wanting list of local [facility] agencies. Pt states no further concerns/needs. CM to follow. Advised pt to ask CM if any further question/concerns/needs arise, voices understanding. Pt Goal: Home VS Home with HHC. Plan: Home VS plan with HHC. Sami JIMENEZ CM
--- NOTE | 2023-11-22 12:30 | CASEMGMT ---
Social Work- PT has directives naming Clarke, son, as primary HCPOA and muna Jallohr, as alternate HCPOA. PRABHU Alaniz
[2023-11-22 14:36] VITALS: BP 119/85; PULSE 82; RESP 18; TEMP 36.4; O2SAT 99
--- NOTE | 2023-11-22 15:27 | CHAPLAIN ---
Type of Pastoral Visit _x__ Initial Visit ___ Follow-up Visit ___ On-call Visit ___ General Patient Visit ___ Spiritual Assessment ___ Family Conference ___ Bereavement ___ Rapid Response ___ Code Blue ___ Other (describe below) Pastoral Care Referral From _x__ Patient ___ Family ___ Nurse ___ Physician ___ Division Field Inspector ___ Dental Laboratory Manager ___ Other (describe below) Sacrament/Intervention _x__ Active listening ___ Anointing ___ Orthodox ___ Bereavement ___ Communion _x__ Gale exploration ___ _x__ Life review _x__ Prayer ___ Reconciliation ___ Sacrament of Sick _x__ Supportive presence ___ Wedding ___ Other (describe below) Pastoral Comments patient is talkative and welcoming of spiritual care support; pt talks about his situation and that his concern is for his at home; pt also concerned about getting an aide for his when their other one is out on a leave; pt is not currently attending a oriental orthodox but considers gale in God very important; listening, affirming, and showing support along with a prayer
[2023-11-22 20:05] VITALS: BP 123/80; PULSE 77; RESP 16; TEMP 36.5; O2SAT 100
[2023-11-22 20:14] VITALS: PULSE 77
[2023-11-22] MEDS: Atorvastatin Calcium 40 MG Tablet PO (20:14)
[2023-11-23] VITALS (7 sets, daily range): BP systolic 98–117; BP diastolic 62–77; PULSE 62–100; RESP 16; TEMP 36.5–36.8; O2SAT 96–99
[2023-11-23] MEDS: Vancomycin IV 1,000 MG/200 ML BAG 200 MG IV ×2 (05:27→18:40)
[2023-11-23] MEDS: Levothyroxine 50 MCG Tablet PO (05:27)
[2023-11-23] MEDS: Piperacil/Tazobactam 3.375 GM in 0.9% Normal Saline (50mL MB+) 50 ML IV ×3 (05:28→21:48)
[2023-11-23 06:49] LABS: Absolute Lymphocyte Count 0.97 X10^3/uL (0.83-4.51); Absolute Neutrophil Count 3.7 X10^3/uL (2.0-7.7); Basophil# 0.04 X10^3/uL; Basophil% 0.7 % (0-1); Eosinophil# 0.25 X10^3/uL; Eosinophils% 4.4 % (0-5); Hematocrit 40.3 % (40-54); Hemoglobin 13.5 g/dL (13.0-16.5); Lymphocyte # 0.97 X10^3/ul (0.83-4.51); Lymphocyte % 17.1 % (19-41); Mean Corp Hgb Conc 33.5 g/dL (32-36); Mean Corpuscular Hgb 31.5 pg (27.0-32.0); Mean Corpuscular Volume 93.9 fL (80-94); Mean Platelet Vol. 10.1 fl (6.2-12.0); Monocyte# 0.64 X10^3/uL; Monocyte% 11.3 % (0-10); NRBC Flagged by Analyzer 0 % (0-5); Neutrophil # 3.72 X10^3/uL (2.7-7.7); Neutrophil % 65.6 % (47-70); Platelet Count 128 K/mm3 (150-450); RBC Distribution Width CV 13.6 % (11.6-14.6); RBC Distribution Width SD 47.1 fl (35.1-43.9); Red Blood Count 4.29 M/mm3 (4.6-6.2); White Blood Count 5.7 K/mm3 (4.4-11.0)
[2023-11-23 07:25] LABS: Anion Gap 6 (5-15); BUN 18 mg/dL (7-18); BUN/Creat Ratio 12.3 RATIO (10-20); Calcium,Total 8.7 mg/dL (8.5-10.1); Chloride 106 mmol/L (98-107); Creatinine, Serum 1.46 mg/dL (0.70-1.30); EST Glomerular Filtration Rate 50 mL/min (>60); Est Glom Filt Rate - Afr Amer 60 mL/min (>60); Estimated Creatinine Clearance 46.92 ml/min; Glucose 124 mg/dL (74-106); Magnesium 1.5 mg/dL (1.6-2.6); Phosphorus 3.2 mg/dL (2.5-4.9); Potassium 3.5 mmol/L (3.5-5.1); Sodium Level 139 mmol/L (136-145)
--- NOTE | 2023-11-23 07:53 | PN.HOSP_ITS ---
Reason for Visit Reason for Visit: Diagnoses Dehydration (11/20/23) Cellulitis of left lower limb (11/20/23) Nausea with vomiting, unspecified (11/20/23) Subjective Subjective Patient seen still has significant swelling and erythema involving the left lower extremity. Will continue with current antibiotic regimen Objective Data Objective Data Vital Signs: Vital Signs Temp Pulse Resp BP Pulse Ox O2 Del Method 98.3 F 79 16 108/69 99 Room Air 11/23/23 05:30 11/23/23 05:30 11/23/23 05:30 11/23/23 05:30 11/23/23 05:30 11/23/23 05:30 Oxygen Delivery Method Room Air Weight: 103 kg Body Mass Index (BMI) 35.5 Intake & Output: Intake and Output for Last 24 Hours 11/21/23 11/22/23 11/23/23 23:59 23:59 23:59 Intake Total 1700 / 2100 1550 / 1550 550 / 550 Output Total 675 / 1050 1125 / 1125 Balance 1025 / 1050 425 / 425 550 / 550 Lab / Micro Data 11/23/23 06:06 11/23/23 06:06 Labs: Laboratory Results - last 24 hr 11/23/23 06:06: WBC 5.7, RBC 4.29 L, Hgb 13.5, Hct 40.3, MCV 93.9, MCH 31.5, MCHC 33.5, RDW Std Deviation 47.1 H, RDW Coeff of Sylwia 13.6, Plt Count 128 L, MPV 10.1, Immature Gran % (Auto) 0.900, Neut % (Auto) 65.6, Lymph % (Auto) 17.1 L, M rafa % (Auto) 11.3 H, Eos % (Auto) 4.4, Baso % (Auto) 0.7, Absolute Neuts (auto) 3.7, Absolute Lymphs (auto) 0.97, Nucleated RBC % 0, Sodium 139, Potassium 3.5, Chloride 106, Carbon Dioxide 27.0, Anion Gap 6, BUN 18, Creatinine 1.46 H, Estim Creat Clear Calc 46.92, Est GFR (MDRD) Af Amer 60, Est GFR (MDRD) Non-Af 50 L, BUN/Creatinine Ratio 12.3, Glucose 124 H, Calcium 8.7, Phosphorus 3.2, Magnesium 1.5 L Micro: Microbiology 11/20/23 16:09 Mucosa - Nose Coronavirus COVID-19 PCR - Final Physical Exam Narrative GENERAL: cooperative HEENT: Atraumatic; normocephalic EYES; Anicteric, Normal Conjunctiva NECK; supple, normal thyroid, RESPIRATORY: Diminished to auscultation CARDIOVASCULAR: Irregularly irregular GI: soft, normoactive bowel sounds, : No Renal angle tenderness; EXTREMITIES: No edema, no clubbing, MUSCULOSKELETAL: no muscle wasting NEURO: Awake; no lateralizing signs. Skin: An area of extensive erythema from the knee to the ankle circumferentially involving the left lower extremity with an open scab on the anterior valentin without drainage PSYCH; Flat affect Assessment & Plan Assessment/Plan (1) Nausea & vomiting: (2) Cellulitis of left leg: (3) Dehydration: PLAN: Plan Patient is a 78-year-old gentleman presenting with swelling and redness involving the left lower extremity 1. Left lower extremity cellulitis ? Admitted to regular nursing floor patient started on vancomycin and Zosyn. Has previous history of testing positive for Pseudomonas as well as Staph aureus ? 11/23/2023 Patient seen still has significant swelling and erythema involving the left lower extremity. Will continue with current antibiotic regimen 2. 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 Chronic kidney disease stage III ? Kidney function at baseline 4. Coronary artery disease ? Status post CABG. Patient is on guideline directed medical therapy 5. Hypertension ? Blood pressure controlled, home medications continued with dose adjustment as needed 6. Persistent A-fib ? With previous maze procedure and left atrial appendage clipping. Rate controlled on systemic anticoagulation with apixaban 7. Dyslipidemia ?Patient is on statin therapy, continued at home dose 8. Depression ? Patient is on fluoxetine 9. Hypothyroidism ? Patient is on levothyroxine home dose continued 10. GERD with Brantley's esophagus ? On PPI 11. Hypertension ? Blood pressure controlled, home medications continued with dose adjustment as needed 12. Chronic congestive heart failure with preserved ejection fraction ? Echo from 05/20/2021 demonstrated EF of 50% patient is on diuretic therapy with Lasix did continue. 13. Class II obesity with BMI of 36 ? Complicating care weight loss advised 14. DVT prophylaxis ? On apixaban Time spent in the patient's overall evaluation,decision-making process, review of diagnostic data, adjustment of management, discussion with other providers, nursing nursing and ancillary staff involved in patient's care documentation, 40 Minutes Charges/Coding Visit Charges Inpatient E&M: 58361 Subs Hosp L2
[2023-11-23] MEDS: Magnesium Sulfate 4gm/100mL 4 GM/100 ML IV.SOLN. IV (08:18)
[2023-11-23] MEDS: Iron Polysaccharide Complex 150 MG CAPSULE PO (08:19)
[2023-11-23] MEDS: Cyanocobalamin 500 MCG Tablet 1000 MCG PO (08:19)
[2023-11-23] MEDS: Ascorbic Acid 500 MG Tablet 250 MG PO (08:19)
[2023-11-23] MEDS: Fluoxetine HCl 40 MG CAPSULE PO (08:19)
[2023-11-23] MEDS: Pantoprazole Sodium 40 MG Tablet PO (08:19)
[2023-11-23] MEDS: APIXABAN 5 MG TABLET PO ×2 (08:21→21:48)
[2023-11-23] MEDS: Metoprolol Tartrate 50 MG Tablet PO ×2 (08:21→21:49)
[2023-11-23] MEDS: Furosemide 20 MG Tablet 60 MG PO (08:21)
[2023-11-23] MEDS: Magnesium Chloride 64 MG Delay Rel.Tablet 128 MG PO (08:22)
[2023-11-23] MEDS: Lactobacillis Acidophilus 1 CAP PO (08:22)
[2023-11-23] MEDS: Tolterodine Tartrate 2 MG CAP.SA PO (08:22)
[2023-11-23] MEDS: Ensure Plus High Protein 120 ML LIQUID PO ×3 (08:25→17:12)
--- NOTE | 2023-11-23 08:51 | NURSING ---
redness increased up back of left leg, and edema noted up back of left leg. redness marked
[2023-11-23] MEDS: Furosemide 40 MG/4 ML Vial IV (14:29)
--- NOTE | 2023-11-23 15:28 | CASEMGMT ---
Addendum entered by Ann Marie Guadalupe 11/23/23 15:34: Pt did state that pt meds needs to be sent to [facility] as she does not drive. Pt up to bathroom while TONY GILLESPIE speaking with pt . Original Note: TONY GILLESPIE into pt room, pt sitting up in bed on tablet. Discussed dc planning with pt, he states that he is not sure he wants HHC, he states that he needs a kick in the pants but is not sure he really needs HHC. Pt states he will discuss with his . Pt then states he just recently received a [facility] benefit. Pt called and put her on speakerphone. She provided the following number to the [facility] [id number] [facility]: [id number]. Pt did not want to discuss HHC with TONY GILLESPIE present currently. TC to [place] in registration, she states that this insurance is already on file for pt but it may not be correctly entered. She states she will fix this. She states this will be billed along with his medicare. Pt does not need to decide if he wants [facility] or [facility] billed as this is not that type of plan. TONY GILLESPIE to follow with pt tomorrow for HHC and this information provided in handoff.
[2023-11-23] MEDS: Atorvastatin Calcium 40 MG Tablet PO (21:49)
[2023-11-24 02:17] VITALS: BP 120/77; PULSE 74; RESP 16; TEMP 36.1; O2SAT 98
[2023-11-24] MEDS: Piperacil/Tazobactam 3.375 GM in 0.9% Normal Saline (50mL MB+) 50 ML IV ×3 (06:01→21:38)
[2023-11-24] MEDS: Furosemide 40 MG/4 ML Vial IV ×2 (06:01→15:02)
[2023-11-24] MEDS: Iron Polysaccharide Complex 150 MG CAPSULE PO (06:01)
[2023-11-24] MEDS: Tolterodine Tartrate 2 MG CAP.SA PO (06:01)
[2023-11-24] MEDS: Levothyroxine 50 MCG Tablet PO (06:01)
[2023-11-24] MEDS: Pantoprazole Sodium 40 MG Tablet PO (06:01)
[2023-11-24] MEDS: 0.9% Saline Lock 10 ML Syringe IV ×3 (06:02→20:33)
[2023-11-24 06:04] LABS: Absolute Lymphocyte Count 1.17 X10^3/uL (0.83-4.51); Absolute Neutrophil Count 3.8 X10^3/uL (2.0-7.7); Basophil# 0.04 X10^3/uL; Basophil% 0.7 % (0-1); Eosinophil# 0.27 X10^3/uL; Eosinophils% 4.5 % (0-5); Hematocrit 40.9 % (40-54); Hemoglobin 13.9 g/dL (13.0-16.5); Lymphocyte # 1.17 X10^3/ul (0.83-4.51); Lymphocyte % 19.6 % (19-41); Mean Corpuscular Hgb 31.5 pg (27.0-32.0); Mean Corpuscular Volume 92.7 fL (80-94); Mean Platelet Vol. 9.6 fl (6.2-12.0); Monocyte# 0.62 X10^3/uL; Monocyte% 10.4 % (0-10); NRBC Flagged by Analyzer 0 % (0-5); Neutrophil # 3.81 X10^3/uL (2.7-7.7); Neutrophil % 63.6 % (47-70); Platelet Count 153 K/mm3 (150-450); RBC Distribution Width CV 13.5 % (11.6-14.6); RBC Distribution Width SD 46.2 fl (35.1-43.9); Red Blood Count 4.41 M/mm3 (4.6-6.2)
[2023-11-24 06:26] LABS: Vancomycin, Trough Level 25.7 ug/mL (5.0-15.0)
[2023-11-24 06:29] LABS: Anion Gap 6 (5-15); BUN 20 mg/dL (7-18); Calcium,Total 8.7 mg/dL (8.5-10.1); Chloride 104 mmol/L (98-107); Creatinine, Serum 1.43 mg/dL (0.70-1.30); EST Glomerular Filtration Rate 51 mL/min (>60); Est Glom Filt Rate - Afr Amer 61 mL/min (>60); Estimated Creatinine Clearance 47.91 ml/min; Glucose 98 mg/dL (74-106); Potassium 3.5 mmol/L (3.5-5.1); Sodium Level 139 mmol/L (136-145)
--- NOTE | 2023-11-24 06:34 | PCM.RX.CS ---
Consult Antibiotic Management Pharmacy has been consulted to manage selected antibiotic: Vancomycin Type of Intervention Type of Consult: Follow-up Suspected Infection Suspected Infection: Skin/Soft tissue Labs Labs: Sodium 139 mmol/L (136-145) 11/24/23 05:35 Potassium 3.5 mmol/L (3.5-5.1) 11/24/23 05:35 Chloride 104 mmol/L (98-107) 11/24/23 05:35 Carbon Dioxide 29.0 mmol/L (21.0-32.0) 11/24/23 05:35 Anion Gap 6 (5-15) 11/24/23 05:35 BUN 20 mg/dL (7-18) H 11/24/23 05:35 Creatinine 1.43 mg/dL (0.70-1.30) H 11/24/23 05:35 Est GFR (MDRD) Af Amer 61 mL/min (>60) 11/24/23 05:35 Est GFR (MDRD) Non-Af 51 mL/min (>60) L 11/24/23 05:35 BUN/Creatinine Ratio 14.0 RATIO (10-20) 11/24/23 05:35 Glucose 98 mg/dL (74-106) 11/24/23 05:35 Vancomycin Trough 25.7 ug/mL (5.0-15.0) H 11/24/23 05:35 Microbiology Microbiology: Microbiology 11/20/23 16:09 Blood Culture (Wb) - Right Forearm Blood Culture - Preliminary No growth in 48 hours. 11/20/23 16:09 Mucosa - Nose Coronavirus COVID-19 PCR - Final Dosing Weight Weight used for dosin kg Estimated Creatinine Clearance Estimated Creatinine Clearance: 48 Goal Trough Goal Trough: 15-20 mcg/mL Pharmacy Plan for Drug Dosing Pharmacy Plan for Drug Dosing: Vancomycin trough level of 25.7, drawn 11 hours post-dose, was above the target range of 15-20. Current dosing will be suspended, and a random vanco level will be drawn in 12 hours to determine further orders. Pharmacy Service will continue to monitor and adjust dosing as required. Follow-Up Labs Follow-Up Labs: Trough: Vancomycin (random) Date/Time Labs Ordered Labs to be done on [date and time ordered]: 11/24/23 @1730 random
--- NOTE | 2023-11-24 07:24 | PCM.PN.HOSP ---
Reason for Visit Reason for Visit: Diagnoses Dehydration (11/20/23) Cellulitis of left lower limb (11/20/23) Nausea with vomiting, unspecified (11/20/23) Subjective Subjective Patient seen erythema involving the left lower extremity improving and wrapped. Given the recurrent nature of patient's symptoms decision was made to consult ID Objective Data Objective Data Vital Signs: Vital Signs Temp Pulse Resp BP Pulse Ox O2 Del Method 97 F L 74 16 120/77 98 Room Air 11/24/23 02:17 11/24/23 02:17 11/24/23 02:17 11/24/23 02:17 11/24/23 02:17 11/24/23 02:17 Oxygen Delivery Method Room Air Weight: 103 kg Body Mass Index (BMI) 35.5 Intake & Output: Intake and Output for Last 24 Hours 11/22/23 11/23/23 11/24/23 23:59 23:59 23:59 Intake Total 1550 / 1550 1650 / 1650 50 / 50 Output Total 1125 / 1125 Balance 425 / 425 1650 / 1650 50 / 50 Lab / Micro Data 11/24/23 05:35 11/24/23 05:35 Labs: Laboratory Results - last 24 hr 11/23/23 06:06: Sodium 139, Potassium 3.5, Chloride 106, Carbon Dioxide 27.0, Anion Gap 6, BUN 18, Creatinine 1.46 H, Estim Creat Clear Calc 46.92, Est GFR (MDRD) Af Amer 60, Est GFR (MDRD) Non-Af 50 L, BUN/Creatinine Ratio 12.3, Glucose 124 H, Calcium 8.7, Phosphorus 3.2, Magnesium 1.5 L 11/24/23 05:35: WBC 6.0, RBC 4.41 L, Hgb 13.9, Hct 40.9, MCV 92.7, MCH 31.5, MCHC 34.0, RDW Std Deviation 46.2 H, RDW Coeff of Sylwia 13.5, Plt Count 153, MPV 9.6, Immature Gran % (Auto) 1.200 H, Neut % (Auto) 63.6, Lymph % (Auto) 19.6, [place] % (Auto) 10.4 H, Eos % (Auto) 4.5, Baso % (Auto) 0.7, Absolute Neuts (auto) 3.8, Absolute Lymphs (auto) 1.17, Nucleated RBC % 0, Sodium 139, Potassium 3.5, Chloride 104, Carbon Dioxide 29.0, Anion Gap 6, BUN 20 H, Creatinine 1.43 H, Estim Creat Clear Calc 47.91, Est GFR (MDRD) Af Amer 61, Est GFR (MDRD) Non-Af 51 L, BUN/Creatinine Ratio 14.0, Glucose 98, Calcium 8.7, Vancomycin Trough 25.7 H Micro: Microbiology 11/20/23 16:09 Blood Culture (Wb) - Right Forearm Blood Culture - Preliminary No growth in 48 hours. 11/20/23 16:09 Mucosa - Nose Coronavirus COVID-19 PCR - Final Physical Exam Narrative GENERAL: cooperative HEENT: Atraumatic; normocephalic EYES; Anicteric, Normal Conjunctiva NECK; supple, normal thyroid, RESPIRATORY: Diminished to auscultation CARDIOVASCULAR: Irregularly irregular GI: soft, normoactive bowel sounds, : No Renal angle tenderness; EXTREMITIES: No edema, no clubbing, MUSCULOSKELETAL: no muscle wasting NEURO: Awake; no lateralizing signs. Skin: An area of extensive erythema from the knee to the ankle circumferentially involving the left lower extremity with an open scab on the anterior valentin without drainage PSYCH; Flat affect Assessment & Plan Assessment/Plan (1) Nausea & vomiting: (2) Cellulitis of left leg: (3) Dehydration: PLAN: Plan Patient is a 78-year-old gentleman presenting with swelling and redness involving the left lower extremity 1. Left lower extremity cellulitis ? Admitted to regular nursing floor patient started on vancomycin and Zosyn. Has previous history of testing positive for Pseudomonas as well as Staph aureus ? 11/23/2023 Patient seen still has significant swelling and erythema involving the left lower extremity. Will continue with current antibiotic regimen ? 11/24/2023 Patient seen erythema involving the left lower extremity improving and wrapped. Given the recurrent nature of patient's symptoms decision was made to consult ID 2. 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 Chronic kidney disease stage III ? Kidney function at baseline 4. Coronary artery disease ? Status post CABG. Patient is on guideline directed medical therapy 5. Hypertension ? Blood pressure controlled, home medications continued with dose adjustment as needed 6. Persistent A-fib ? With previous maze procedure and left atrial appendage clipping. Rate controlled on systemic anticoagulation with apixaban 7. Dyslipidemia ?Patient is on statin therapy, continued at home dose 8. Depression ? Patient is on fluoxetine 9. Hypothyroidism ? Patient is on levothyroxine home dose continued 10. GERD with Brantley's esophagus ? On PPI 11. Hypertension ? Blood pressure controlled, home medications continued with dose adjustment as needed 12. Acute on chronic congestive heart failure with preserved ejection fraction ? Echo from 05/20/2021 demonstrated EF of 50% patient is on diuretic therapy with Lasix did continue. ? 11/24/2023; adjusted patient Lasix dose repeat echo ordered for EF assessment 13. Class II obesity with BMI of 36 ? Complicating care weight loss advised 14. DVT prophylaxis ? On apixaban Time spent in the patient's overall evaluation,decision-making process, review of diagnostic data, adjustment of management, discussion with other providers, nursing nursing and ancillary staff involved in patient's care documentation, 36 minutes Charges/Coding Visit Charges Inpatient E&M: 96731 Subs Hosp L2
--- NOTE | 2023-11-24 07:27 | ECHOCS_ITS ---
Version 2 Reason For Study: CHF Procedure This was a 2D Doppler, Color Flow transthoracic echocardiogram. The study was technically difficult. Due to body habitus. Exam performed in department. Left Ventricle Normal LV size. Mild concentric left ventricular hypertrophy. The left ventricular ejection fraction is 50 %. There is borderline global hypokinesis of the left ventricle. Right Ventricle Normal RV size. Normal systolic function. Atria The left atrium is severely enlarged. The right atrium is moderately enlarged. Mitral Valve Normal mitral valve. Tricuspid Valve Normal tricuspid valve. Mild (1+) tricuspid valve insufficiency. Pulmonary artery systolic pressure is 34 mmHg. Aortic Valve Trisinus/trileaflet aortic valve. Pulmonic Valve Normal pulmonic valve. Great Vessels Normal aortic root. The pulmonary artery is normal size. Normal inferior vena cava. Pericardium/Pleural No pericardial effusion. Medication Diluted definity 3.0ml given slow IV push to enhance endocardial definition. MMode/2D Measurements & Calculations LVIDd: 4.6 cm IVSd: 1.3 cm LVOT diam: 2.1 cm LVIDs: 3.5 cm LVPWd: 1.2 cm RVDd: 4.7 cm FS: 23.8 % LVOT area: 3.6 cm2 Ao root diam: 4.0 cm asc Aorta Diam: 4.0 cm LAV(MOD-bp): 150.7 ml LA dimension: 5.0 cm LAV(MOD-bp) Indexed: 70.6 ml/m2 LAV(MOD-sp2): 133.7 ml LAV(MOD-sp4): 158.5 ml SV(MOD-sp4): 76.6 ml SV(sp4-el): 75.3 ml LVAd ap4: 38.0 cm2 LVLd ap4: 8.1 cm EDV(MOD-sp4): 148.0 ml EDV(sp4-el): 150.5 ml LVAs ap4: 24.7 cm2 LVLs ap4: 6.9 cm ESV(MOD-sp4): 71.4 ml ESV(sp4-el): 75.2 ml EF(MOD-sp4): 51.8 % EF(sp4-el): 50.0 % LA A4 area: 38.6 cm2 RA A4 area: 30.4 cm2 TAPSE: 0.64 cm Doppler Measurements & Calculations MV E max hasmukh: 104.9 cm/sec Ao V2 max: 113.2 cm/sec LV V1 max: 91.4 cm/sec Ao max P.1 mmHg LV V1 max P.4 mmHg Ao V2 mean: 81.5 cm/sec LV V1 mean P.0 mmHg Ao mean P.0 mmHg LV V1 mean: 65.8 cm/sec Ao V2 VTI: 20.8 cm LV V1 VTI: 17.6 cm AV (velocity ratio): 0.85 MARCIE(I,D): 3.0 cm2 MARCIE(V,D): 2.9 cm2 SV(LVOT): 62.9 ml PA V2 max: 57.9 cm/sec TR max hasmukh: 276.0 cm/sec PA max PG (full): 0.31 mmHg TR max P.5 mmHg ECHO/Echo Complete W/ Contrast Interpretation Summary Normal LV size. Mild concentric left ventricular hypertrophy. The left ventricular ejection fraction is 50 %. The left atrium is severely enlarged. The right atrium is moderately enlarged. Mild (1+) tricuspid valve insufficiency. Ordering Physician: Cesar Hoffman Referring Physician: Wilbert Arango Chi Performed By: Ara Malcolm RVT, RDCS and Student
[2023-11-24] MEDS: Cyanocobalamin 500 MCG Tablet 1000 MCG PO (08:05)
[2023-11-24] MEDS: Ensure Plus High Protein 120 ML LIQUID PO ×3 (08:05→17:20)
[2023-11-24] MEDS: APIXABAN 5 MG TABLET PO ×2 (08:06→20:43)
[2023-11-24] MEDS: Ascorbic Acid 500 MG Tablet 250 MG PO (08:07)
[2023-11-24 08:08] VITALS: BP 115/80; PULSE 73
[2023-11-24] MEDS: Metoprolol Tartrate 50 MG Tablet PO ×2 (08:08→20:43)
[2023-11-24] MEDS: Lactobacillis Acidophilus 1 CAP PO (08:08)
[2023-11-24] MEDS: Magnesium Chloride 64 MG Delay Rel.Tablet 128 MG PO (08:09)
[2023-11-24] MEDS: Fluoxetine HCl 40 MG CAPSULE PO (08:10)
[2023-11-24 08:14] VITALS: BP 115/80; PULSE 73; RESP 16; TEMP 36.8; O2SAT 98
--- NOTE | 2023-11-24 08:35 | WOUNDNOTE ---
wound photo: left lower leg
--- NOTE | 2023-11-24 12:30 | CASEMGMT ---
TONY GILLESPIE NOTE: TONY CM to room. Pt sitting up in chair in room. Discussed HHC, as pt was not sure yesterday if he wanted this. Pt states he has not spoken w/his about this yet. Upon further discussion, pt mentioned he has been up in room ad so and not using any DME to ambulate. He was made aware of [facility]'s requirements of being homebound. He states he is not homebound and states he will not be homebound once he discharges home. TONY GILLESPIE discussed OP therapy, and he declines this as well. He denies having any concerns/needs w/discharging home. Made aware to ask for CM if any needs/concerns arise. Ina MATIAS RN, CM
--- NOTE | 2023-11-24 13:25 | CON.PCM.ID_ITS ---
Assessment & Plan Assessment/Plan (1) Cellulitis of left leg: PLAN: 08/2022 wound cx with MRSA and PsA. On vanc/zosyn here. No fever, normal wbc. Will follow, thank you (2) Hx of CABG: (3) History of chronic kidney disease: HPI Consult Data Date of Consult: 11/24/23 HPI Narrative Reason for Consultation: cellulitis HPI Narrative: ERICKA SHELDON, is a 78 M with CABG about 18 months ago in [place], complicated by recurrent wound at LLE vein donor site. Developed several days weakness, fatigue, chills, and progressive non tender redness and swelling of LLE extending up medial thigh. Came to ED, admitted on vanc/zosyn, feeling ok, seen by wound care. Full ROS performed and neg except as noted above. [facility] Medical History Pseudomonas aeruginosa infection Cardiology follow-up encounter History of echocardiogram Wears glasses Bleeding tendency Ulcer Hiatal hernia High cholesterol History of stress test Hearing loss, left Hearing loss, right Cancer Anemia Anxiety Kidney disease Non-smoker CPAP (continuous positive airway pressure) dependence Sleep apnea Atrial fibrillation Chest pain TIA (transient ischemic attack) Hearing deficit Obesity (BMI 35.0-39.9 without comorbidity) Lipodermatosclerosis Right leg swelling Left leg swelling Ulcer of left calf Hypothyroidism Chronic kidney disease, stage III (moderate) Chronic anticoagulation CAD (coronary artery disease) History of left heart catheterization (LHC) (~05/20/21) Sleep apnea Depression Chronic depression Iron deficiency anemia Chronic kidney disease, stage 3 Brantley's esophagus with esophagitis GERD (gastroesophageal reflux disease) Hyperlipidemia Essential hypertension Obstructive sleep apnea History of septic shock (04/02/16) Atrial fibrillation Atherosclerosis of coronary artery of [place] heart without angina pectoris Home Medications ?Medication ?Instructions ?Recorded ?Last Taken ?Type apixaban 5 mg tablet (Eliquis) 5 mg PO BID blood thinner 11/07/18 10/04/22 History atorvastatin 40 mg tablet 40 mg PO QHS cholesterol 11/07/18 Unknown History pantoprazole 40 mg tablet,delayed 40 mg PO DAILY gerd 11/07/18 10/07/22 History release trospium 20 mg tablet 20 mg PO BID bladder 07/18/19 12/03/20 History acetaminophen 500 mg tablet 1,000 mg PO Q6H PRN pain 07/22/21 Unknown History cyanocobalamin (vitamin B-12) 1,000 mcg PO DAILY vitamin 07/22/21 Unknown History 1,000 mcg tablet furosemide 40 mg tablet (Lasix) 60 mg PO DAILY water pill 12/16/21 Unknown History gwolmrxi-ec-yryym 300 mcg-K 60 1 tab PO DAILY supplement 12/16/21 Unknown History mcg-lycop 600 mcg-lutein 300 mcg tablet (Centrum Silver Men) nitroglycerin 0.4 mg sublingual 0.4 mg sublingual Q5M PRN Chest 04/02/22 Unknown Rx tablet Pain #25 tabs ascorbic acid (vitamin C) 250 mg 250 mg PO DAILY supplement 05/22/22 Unknown History tablet (Vitamin C) magnesium oxide 420 mg tablet 420 mg PO DAILY supplement 05/22/22 Unknown History L.acidophil,salivari-Bifido 1 cap PO DAILY #30 caps 10/05/22 Unknown Rx bifidum-Strep thermoph 175 mg capsule (Acidophilus Probiotic Blend) metoprolol tartrate 50 mg tablet 50 mg PO BID heart #180 tabs 10/26/22 Unknown Rx fluoxetine 40 mg capsule 40 mg PO DAILY 12/18/22 Unknown History polysaccharide iron complex 150 mg 150 mg PO DAILY 12/18/22 Unknown History iron capsule (iFerex 150) potassium chloride 20 mEq 20 meq PO DAILY 12/18/22 Unknown History tablet,extended release(part/cryst) levothyroxine 50 mcg tablet 50 mcg PO DAILY 11/20/23 Unknown History Allergy/AdvReac Type Severity Reaction Status Date / Time No Known Allergies Allergy Verified 07/08/23 11:36 Family History Father Cancer Lung Mother Heart disease Brother Heart disease CVA (cerebral vascular accident) Brother Heart disease Brother Heart disease Surgical History S/P cholecystectomy H/O cardiac catheterization History of appendectomy Hx of CABG History of coronary artery stent placement History of bilateral knee replacement History of coronary artery bypass graft x 3 (~05/27/21) History of total left knee replacement History of total right knee replacement Stented coronary artery (04/14/07) Social History household members: spouse housing: apartment pets and animals: No Smoking Status: Never smoker alcohol intake: never substance use type: does not use caffeine: Yes Type: carbonated beverages Number of servings: 1 Physical Exam Const alert, oriented x3 and no apparent distress General Appearance: cooperative HEENT normocephalic and head/scalp atraumatic Eyes PERRL and EOMs intact bilaterally Neck supple and No nodes Resp normal air movement and clear to auscultation bilaterally Cardio regular rate and regular rhythm GI soft to palpation, non-tender and non-distended Extremity General Extremity: edema Skin Skin Narrative: LLE redness, small central ulcer on valentin Neuro CN's II-XII intact bilaterally Lab / Micro Data Attestation: I reviewed the patient's lab results. 11/24/23 05:35 11/24/23 05:35 Labs: Laboratory Results - last 24 hr 11/24/23 05:35: WBC 6.0, RBC 4.41 L, Hgb 13.9, Hct 40.9, MCV 92.7, MCH 31.5, MCHC 34.0, RDW Std Deviation 46.2 H, RDW Coeff of Sylwia 13.5, Plt Count 153, MPV 9.6, Immature Gran % (Auto) 1.200 H, Neut % (Auto) 63.6, Lymph % (Auto) 19.6, M rafa % (Auto) 10.4 H, Eos % (Auto) 4.5, Baso % (Auto) 0.7, Absolute Neuts (auto) 3.8, Absolute Lymphs (auto) 1.17, Nucleated RBC % 0, Sodium 139, Potassium 3.5, Chloride 104, Carbon Dioxide 29.0, Anion Gap 6, BUN 20 H, Creatinine 1.43 H, Estim Creat Clear Calc 47.91, Est GFR (MDRD) Af Amer 61, Est GFR (MDRD) Non-Af 51 L, BUN/Creatinine Ratio 14.0, Glucose 98, Calcium 8.7, Vancomycin Trough 25.7 H
[2023-11-24 18:04] LABS: Vancomycin, Random Level 19.2 ug/mL (0.0-15.0)
--- NOTE | 2023-11-24 18:15 | PCM.RX.CS ---
Consult Antibiotic Management Pharmacy has been consulted to manage selected antibiotic: Vancomycin Type of Intervention Type of Consult: Follow-up Suspected Infection Suspected Infection: Skin/Soft tissue Labs Labs: Sodium 139 mmol/L (136-145) 11/24/23 05:35 Potassium 3.5 mmol/L (3.5-5.1) 11/24/23 05:35 Chloride 104 mmol/L (98-107) 11/24/23 05:35 Carbon Dioxide 29.0 mmol/L (21.0-32.0) 11/24/23 05:35 Anion Gap 6 (5-15) 11/24/23 05:35 BUN 20 mg/dL (7-18) H 11/24/23 05:35 Creatinine 1.43 mg/dL (0.70-1.30) H 11/24/23 05:35 Est GFR (MDRD) Af Amer 61 mL/min (>60) 11/24/23 05:35 Est GFR (MDRD) Non-Af 51 mL/min (>60) L 11/24/23 05:35 BUN/Creatinine Ratio 14.0 RATIO (10-20) 11/24/23 05:35 Glucose 98 mg/dL (74-106) 11/24/23 05:35 Vancomycin Trough 25.7 ug/mL (5.0-15.0) H 11/24/23 05:35 Random Vancomycin 19.2 ug/mL (0.0-15.0) H 11/24/23 17:28 Microbiology Microbiology: Microbiology 11/20/23 16:09 Blood Culture (Wb) - Right Forearm Blood Culture - Preliminary No growth in 48 hours. 11/20/23 16:09 Mucosa - Nose Coronavirus COVID-19 PCR - Final Pharmacy Plan for Drug Dosing Pharmacy Plan for Drug Dosing: VANCOMYCIN LEVEL RECEIVED Current Vancomycin Dose: Held Number of Doses Received: 7 Vancomycin Level: 19.2 mg/dl Hours Since Last Dose: 23 Renal Function: SCr 1.43 mg/dL, CrCl 47.9 mL/min Renal Function Trend: stable Lab/Micro: blood cx no growth Vancomycin Plan/Comments: 23 hour random level is now therapeutic (goal 15-20 mg/dL). Will resume dosing at 750mg Q12 and get a trough prior to the 4th dose. Pending Level: 11/26/23 @ 0630 Pharmacy Service will continue to monitor and adjust dosing as required.
[2023-11-24] MEDS: Vancomycin HCl 750 MG in 0.9% Normal Saline (250mL Bag) 250 ML 250 MG IV (20:33)
[2023-11-24 20:43] VITALS: PULSE 62
[2023-11-24] MEDS: Atorvastatin Calcium 40 MG Tablet PO (20:43)
[2023-11-24 21:01] VITALS: BP 121/77; PULSE 62; RESP 16; TEMP 36.9; O2SAT 100
[2023-11-25] MEDS: Vancomycin HCl 750 MG in 0.9% Normal Saline (250mL Bag) 250 ML 250 MG IV (05:59)
[2023-11-25] MEDS: Piperacil/Tazobactam 3.375 GM in 0.9% Normal Saline (50mL MB+) 50 ML IV (05:59)
[2023-11-25] MEDS: Levothyroxine 50 MCG Tablet PO (06:00)
[2023-11-25] MEDS: Iron Polysaccharide Complex 150 MG CAPSULE PO (06:00)
[2023-11-25] MEDS: Furosemide 40 MG/4 ML Vial IV (06:00)
[2023-11-25] MEDS: Pantoprazole Sodium 40 MG Tablet PO (06:00)
[2023-11-25] MEDS: Tolterodine Tartrate 2 MG CAP.SA PO (06:00)
[2023-11-25] MEDS: 0.9% Saline Lock 10 ML Syringe IV (06:00)
[2023-11-25 06:15] VITALS: BP 114/78; PULSE 76; RESP 16; TEMP 36.6; O2SAT 97
[2023-11-25 06:40] LABS: Absolute Lymphocyte Count 1.32 X10^3/uL (0.83-4.51); Basophil# 0.06 X10^3/uL; Eosinophil# 0.26 X10^3/uL; Eosinophils% 4.1 % (0-5); Hematocrit 42.6 % (40-54); Hemoglobin 13.9 g/dL (13.0-16.5); Lymphocyte # 1.32 X10^3/ul (0.83-4.51); Lymphocyte % 20.9 % (19-41); Mean Corp Hgb Conc 32.6 g/dL (32-36); Mean Corpuscular Hgb 30.6 pg (27.0-32.0); Mean Corpuscular Volume 93.8 fL (80-94); Mean Platelet Vol. 9.6 fl (6.2-12.0); Monocyte# 0.63 X10^3/uL; NRBC Flagged by Analyzer 0 % (0-5); Neutrophil # 3.96 X10^3/uL (2.7-7.7); Neutrophil % 62.7 % (47-70); Platelet Count 180 K/mm3 (150-450); RBC Distribution Width CV 13.5 % (11.6-14.6); RBC Distribution Width SD 46.4 fl (35.1-43.9); Red Blood Count 4.54 M/mm3 (4.6-6.2); White Blood Count 6.3 K/mm3 (4.4-11.0)
[2023-11-25 07:16] LABS: Anion Gap 5 (5-15); BUN 29 mg/dL (7-18); BUN/Creat Ratio 18.4 RATIO (10-20); Calcium,Total 8.8 mg/dL (8.5-10.1); Chloride 104 mmol/L (98-107); Creatinine, Serum 1.58 mg/dL (0.70-1.30); EST Glomerular Filtration Rate 45 mL/min (>60); Est Glom Filt Rate - Afr Amer 55 mL/min (>60); Estimated Creatinine Clearance 43.36 ml/min; Glucose 105 mg/dL (74-106); Potassium 3.4 mmol/L (3.5-5.1); Sodium Level 140 mmol/L (136-145)
--- NOTE | 2023-11-25 07:42 | PCM.PN.HOSP ---
Reason for Visit Reason for Visit: Diagnoses Dehydration (11/20/23) Cellulitis of left lower limb (11/20/23) Nausea with vomiting, unspecified (11/20/23) Personal history of other diseases of urinary system (11/20/23) Presence of aortocoronary bypass graft (11/20/23) Subjective Subjective Did decrease patient Lasix dose given worsening kidney function. Erythema and warmth involving the left lower extremity is markedly improved. Objective Data Objective Data Vital Signs: Vital Signs Temp Pulse Resp BP Pulse Ox O2 Del Method 97.8 F 76 16 114/78 97 Room Air 11/25/23 06:15 11/25/23 06:15 11/25/23 06:15 11/25/23 06:15 11/25/23 06:15 11/25/23 06:15 Oxygen Delivery Method Room Air Weight: 103 kg Body Mass Index (BMI) 35.5 Intake & Output: Intake and Output for Last 24 Hours 11/23/23 11/24/23 11/25/23 23:59 23:59 23:59 Intake Total 1650 / 1650 1115 / 1115 315 / 315 Balance 1650 / 1650 1115 / 1115 315 / 315 Lab / Micro Data 11/25/23 06:22 11/25/23 06:22 Labs: Laboratory Results - last 24 hr 11/24/23 17:28: Random Vancomycin 19.2 H 11/25/23 06:22: WBC 6.3, RBC 4.54 L, Hgb 13.9, Hct 42.6, MCV 93.8, MCH 30.6, MCHC 32.6, RDW Std Deviation 46.4 H, RDW Coeff of Sylwia 13.5, Plt Count 180, MPV 9.6, Immature Gran % (Auto) 1.300 H, Neut % (Auto) 62.7, Lymph % (Auto) 20.9, [place] % (Auto) 10.0, Eos % (Auto) 4.1, Baso % (Auto) 1.0, Absolute Neuts (auto) 4.0, Absolute Lymphs (auto) 1.32, Nucleated RBC % 0, Sodium 140, Potassium 3.4 L, Chloride 104, Carbon Dioxide 30.0, Anion Gap 5, BUN 29 H, Creatinine 1.58 H, Estim Creat Clear Calc 43.36, Est GFR (MDRD) Af Amer 55 L, Est GFR (MDRD) Non-Af 45 L, BUN/Creatinine Ratio 18.4, Glucose 105, Calcium 8.8 Micro: Microbiology 11/20/23 16:09 Blood Culture (Wb) - Right Forearm Blood Culture - Preliminary No growth in 48 hours. 11/20/23 16:09 Mucosa - Nose Coronavirus COVID-19 PCR - Final Radiography Diagnostic Testing: Radiology Impression Echocardiogram 11/24/23 07:27 Interpretation Summary Normal LV size. Mild concentric left ventricular hypertrophy. The left ventricular ejection fraction is 50 %. The left atrium is severely enlarged. The right atrium is moderately enlarged. Mild (1+) tricuspid valve insufficiency. Ordering Physician: eCsar Hoffman Referring Physician: Wilbert Arango Chi Performed By: Ara Malcolm RVT, RDCS and Student Physical Exam Narrative GENERAL: cooperative HEENT: Atraumatic; normocephalic EYES; Anicteric, Normal Conjunctiva NECK; supple, normal thyroid, RESPIRATORY: Diminished to auscultation CARDIOVASCULAR: Irregularly irregular GI: soft, normoactive bowel sounds, : No Renal angle tenderness; EXTREMITIES: No edema, no clubbing, MUSCULOSKELETAL: no muscle wasting NEURO: Awake; no lateralizing signs. Skin: An area of extensive erythema from the knee to the ankle circumferentially involving the left lower extremity with an open scab on the anterior valentin without drainage PSYCH; Flat affect Assessment & Plan Assessment/Plan (1) Nausea & vomiting: (2) Cellulitis of left leg: (3) Dehydration: PLAN: Plan Patient is a 78-year-old gentleman presenting with swelling and redness involving the left lower extremity 1. Left lower extremity cellulitis ? Admitted to regular nursing floor patient started on vancomycin and Zosyn. Has previous history of testing positive for Pseudomonas as well as Staph aureus ? 11/23/2023 Patient seen still has significant swelling and erythema involving the left lower extremity. Will continue with current antibiotic regimen ? 11/24/2023 Patient seen erythema involving the left lower extremity improving and wrapped. Given the recurrent nature of patient's symptoms decision was made to consult ID ? 11/25/2023; patient was seen in consultation by Dr. Tam, on 11/24/2023. His notes and recommendations reviewed. Patient is improving clinically. 2. 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 Chronic kidney disease stage III ? Kidney function at baseline ? 11/25/2023; kidney function did worsen with diuresis dose of patient furosemide subsequently adjusted 4. Coronary artery disease ? Status post CABG. Patient is on guideline directed medical therapy 5. Hypertension ? Blood pressure controlled, home medications continued with dose adjustment as needed 6. Persistent A-fib ? With previous maze procedure and left atrial appendage clipping. Rate controlled on systemic anticoagulation with apixaban 7. Dyslipidemia ?Patient is on statin therapy, continued at home dose 8. Depression ? Patient is on fluoxetine 9. Hypothyroidism ? Patient is on levothyroxine home dose continued 10. GERD with Brantley's esophagus ? On PPI 11. Hypertension ? Blood pressure controlled, home medications continued with dose adjustment as needed 12. Acute on chronic congestive heart failure with preserved ejection fraction ? Echo from 05/20/2021 demonstrated EF of 50% patient is on diuretic therapy with Lasix did continue. ? 11/24/2023; adjusted patient Lasix dose repeat echo ordered for EF assessment ? 11/25/2023; did decrease patient's Lasix dose given worsening kidney function. 2D echo obtained the day prior results are as below Mild concentric left ventricular hypertrophy. The left ventricular ejection fraction is 50 %. The left atrium is severely enlarged. The right atrium is moderately enlarged. Mild (1+) tricuspid valve insufficiency. 13. Class II obesity with BMI of 36 ? Complicating care weight loss advised 14. DVT prophylaxis ? On apixaban Time spent in the patient's overall evaluation,decision-making process, review of diagnostic data, adjustment of management, discussion with other providers, nursing nursing and ancillary staff involved in patient's care documentation, 36 minutes Charges/Coding Visit Charges Inpatient E&M: 27331 Subs Hosp L2
[2023-11-25 08:15] VITALS: BP 99/68; PULSE 74; RESP 18; TEMP 36.4; O2SAT 98
[2023-11-25] MEDS: Fluoxetine HCl 40 MG CAPSULE PO (08:20)
[2023-11-25] MEDS: Magnesium Chloride 64 MG Delay Rel.Tablet 128 MG PO (08:20)
[2023-11-25] MEDS: Cyanocobalamin 500 MCG Tablet 1000 MCG PO (08:21)
[2023-11-25] MEDS: Ascorbic Acid 500 MG Tablet 250 MG PO (08:21)
[2023-11-25] MEDS: Lactobacillis Acidophilus 1 CAP PO (08:21)
[2023-11-25] MEDS: APIXABAN 5 MG TABLET PO (08:21)
[2023-11-25] MEDS: Ensure Plus High Protein 120 ML LIQUID PO (08:25)
--- NOTE | 2023-11-25 10:12 | PCM.PN.ID ---
Physical Exam Narrative Feeling better, leg less red and sore, no fever Const alert and no apparent distress General Appearance: cooperative Resp normal air movement and clear to auscultation bilaterally Cardio regular rate and regular rhythm GI soft to palpation, non-tender and non-distended Skin Skin Narrative: LLE less red, warm, swollen ID ID: Route of nutrition/ use of supplements: [] Nutritional Intake: [] IV Site: [] Pal Catheter: [] Assessment & Plan Assessment/Plan (1) Cellulitis of left leg: PLAN: 08/2022 wound cx with MRSA and PsA. On vanc/zosyn here. No fever, normal wbc. Leg much improved. Ok for home with one week po doxy 100mg bid and keflex 500mg tid. Low suspicion for active pseudomonal infection at this time Will follow prn (2) Hx of CABG: (3) History of chronic kidney disease:
--- NOTE | 2023-11-25 10:17 | DS.PCM_ITS ---
Providers Date of Admission: 11/20/23 Date of Discharge: 11/25/23 Primary Care Physician: Dr. 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 Comment: Reason for Consult:: leg wound 11/24/23 08:16 Consult: Infectious Disease Routine Consulting Provider: Bryce Tam Reason for Consult: LLE harvest cellulitis EMERGENT Consult: No Notified: Yes Date Notified: 11/24/23 Time Notified: 08:16 Method of Notification: Text Reason For Visit: LEFT LOWER EXREMITY CELLULITIS Diagnosis Discharge Diagnosis (1) Cellulitis of left leg: Status: Acute Code(s): L03.116 - Cellulitis of left lower limb (2) Hx of CABG: Status: Acute Code(s): Z95.1 - Presence of aortocoronary bypass graft (3) History of chronic kidney disease: Status: Chronic Code(s): Z87.448 - Personal history of other diseases of urinary system Plan Patient is a 78-year-old gentleman presenting with swelling and redness involving the left lower extremity 1. Left lower extremity cellulitis ? Admitted to regular nursing floor patient started on vancomycin and Zosyn. Has previous history of testing positive for Pseudomonas as well as Staph aureus ? 11/23/2023 Patient seen still has significant swelling and erythema involving the left lower extremity. Will continue with current antibiotic regimen ? 11/24/2023 Patient seen erythema involving the left lower extremity improving and wrapped. Given the recurrent nature of patient's symptoms decision was made to consult ID ? 11/25/2023; patient was seen in consultation by Dr. Tam, on 11/24/2023. His notes and recommendations reviewed. Patient is improving clinically. Decision was made to discharge patient home with doxycycline as well as Keflex. Recommendations from ID 2. 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 Chronic kidney disease stage III ? Kidney function at baseline ? 11/25/2023; kidney function did worsen with diuresis dose of patient furosemide subsequently adjusted 4. Coronary artery disease ? Status post CABG. Patient is on guideline directed medical therapy 5. Hypertension ? Blood pressure controlled, home medications continued with dose adjustment as needed 6. Persistent A-fib ? With previous maze procedure and left atrial appendage clipping. Rate controlled on systemic anticoagulation with apixaban 7. Dyslipidemia ?Patient is on statin therapy, continued at home dose 8. Depression ? Patient is on fluoxetine 9. Hypothyroidism ? Patient is on levothyroxine home dose continued 10. GERD with Brantley's esophagus ? On PPI 11. Hypertension ? Blood pressure controlled, home medications continued with dose adjustment as needed 12. Acute on chronic congestive heart failure with preserved ejection fraction ? Echo from 05/20/2021 demonstrated EF of 50% patient is on diuretic therapy with Lasix did continue. ? 11/24/2023; adjusted patient Lasix dose repeat echo ordered for EF assessment ? 11/25/2023; did decrease patient's Lasix dose given worsening kidney function. 2D echo obtained the day prior results are as below Mild concentric left ventricular hypertrophy. The left ventricular ejection fraction is 50 %. The left atrium is severely enlarged. The right atrium is moderately enlarged. Mild (1+) tricuspid valve insufficiency. 13. Class II obesity with BMI of 36 ? Complicating care weight loss advised 14. DVT prophylaxis ? On apixaban Time spent in the patient's overall evaluation,decision-making process, review of diagnostic data, adjustment of management, discussion with other providers, nursing nursing and ancillary staff involved in patient's care documentation, 36 minutes Medications at Discharge Home Medications apixaban 5 mg tablet (Eliquis) 5 mg PO BID blood thinner 11/07/18 atorvastatin 40 mg tablet 40 mg PO QHS cholesterol 11/07/18 pantoprazole 40 mg tablet,delayed release 40 mg PO DAILY gerd 11/07/18 trospium 20 mg tablet 20 mg PO BID bladder 07/18/19 acetaminophen 500 mg tablet 1,000 mg PO Q6H PRN pain 07/22/21 cyanocobalamin (vitamin B-12) 1,000 mcg tablet 1,000 mcg PO DAILY vitamin 07/22/21 furosemide 40 mg tablet (Lasix) 60 mg PO DAILY water pill 12/16/21 [id number] 300 mcg-K 60 mcg-lycop 600 mcg-lutein 300 mcg tablet (Centrum Silver Men) 1 tab PO DAILY supplement 12/16/21 nitroglycerin 0.4 mg sublingual tablet 0.4 mg sublingual Q5M PRN Chest Pain #25 tabs 04/02/22 ascorbic acid (vitamin C) 250 mg tablet (Vitamin C) 250 mg PO DAILY supplement 05/22/22 magnesium oxide 420 mg tablet 420 mg PO DAILY supplement 05/22/22 L.acidophil,salivari-Bifido bifidum-Strep thermoph 175 mg capsule (Acidophilus Probiotic Blend) 1 cap PO DAILY #30 caps 10/05/22 metoprolol tartrate 50 mg tablet 50 mg PO BID heart #180 tabs 10/26/22 fluoxetine 40 mg capsule 40 mg PO DAILY 12/18/22 polysaccharide iron complex 150 mg iron capsule (iFerex 150) 150 mg PO DAILY 12/18/22 potassium chloride 20 mEq tablet,extended release(part/cryst) 20 meq PO DAILY 12/18/22 levothyroxine 50 mcg tablet 50 mcg PO DAILY 11/20/23 cephalexin 500 mg capsule 500 mg PO Q8 7 days #21 caps 11/25/23 doxycycline monohydrate 100 mg capsule 100 mg PO BID 7 days #14 caps 11/25/23 Physical Exam Narrative GENERAL: cooperative HEENT: Atraumatic; normocephalic EYES; Anicteric, Normal Conjunctiva NECK; supple, normal thyroid, RESPIRATORY: Diminished to auscultation CARDIOVASCULAR: Irregularly irregular GI: soft, normoactive bowel sounds, : No Renal angle tenderness; EXTREMITIES: No edema, no clubbing, MUSCULOSKELETAL: no muscle wasting NEURO: Awake; no lateralizing signs. Skin: An area of extensive erythema from the knee to the ankle circumferentially involving the left lower extremity with an open scab on the anterior valentin without drainage PSYCH; Flat affect Weight / BMI Weight Weight: 103 kg Body Mass Index (BMI) 35.5 ABG / Lab / Microbiology Data 11/25/23 06:22 11/25/23 06:22 Laboratory: Laboratory Results - last 24 hr 11/24/23 17:28: Random Vancomycin 19.2 H 11/25/23 06:22: WBC 6.3, RBC 4.54 L, Hgb 13.9, Hct 42.6, MCV 93.8, MCH 30.6, MCHC 32.6, RDW Std Deviation 46.4 H, RDW Coeff of Sylwia 13.5, Plt Count 180, MPV 9.6, Immature Gran % (Auto) 1.300 H, Neut % (Auto) 62.7, Lymph % (Auto) 20.9, Coffee % (Auto) 10.0, Eos % (Auto) 4.1, Baso % (Auto) 1.0, Absolute Neuts (auto) 4.0, Absolute Lymphs (auto) 1.32, Nucleated RBC % 0, Sodium 140, Potassium 3.4 L , Chloride 104, Carbon Dioxide 30.0, Anion Gap 5, BUN 29 H, Creatinine 1.58 H, Estim Creat Clear Calc 43.36, Est GFR (MDRD) Af Amer 55 L, Est GFR (MDRD) Non-Af 45 L, BUN/Creatinine Ratio 18.4, Glucose 105, Calcium 8.8 Microbiology: Microbiology 11/20/23 16:09 Blood Culture (Wb) - Right Forearm Blood Culture - Preliminary No growth in 48 hours. 11/20/23 16:09 Mucosa - Nose Coronavirus COVID-19 PCR - Final Radiography Diagnostic Testing: Radiology Impression Echocardiogram 11/24/23 07:27 Interpretation Summary Normal LV size. Mild concentric left ventricular hypertrophy. The left ventricular ejection fraction is 50 %. The left atrium is severely enlarged. The right atrium is moderately enlarged. Mild (1+) tricuspid valve insufficiency. Ordering Physician: Cesar Hoffman Referring Physician: Wilbert Arango Chi Performed By: Ara Malcolm RVT, RDCS and Student D/C Instructions Discharge Diet: 8 Cup Fluid Restriction and 2000 mg Sodium Diet Discharge Activity: Return to Normal Activity Call your doctor if you observe: Fever of 101 or Higher, Shortness of breath, Fainting spells and Chest pain Meaningful Use Info Meaningful Use Meaningful Use Diagnoses (Choose all that apply): CHF CHF CHRISS/ARB ordered at discharge?: No Reason CHRISS/ARB not ordered?: Normal EF Documented LVEF (%): 50 Ischemic Stroke Statin Dosing Therapy Reference: STATIN DOSE THERAPY REFERENCE: * Patients > 75 years receive moderate or high dose statin therapy. * Patients 75 years or YOUNGER should receive HIGH intensity statin dose unless contraindicated. You will be required to document reason for non-treatment if statin daily dose does not meet guidelines. HIGH DOSE STATIN THERAPY DAILY Atorvastatin > than or = to 40 mg Rosuvastatin > than or = to 20 mg Amlodipine + Atorvastatin > than or = to 2.5/40 mg Ezetimibe + Simvastatin 10/80 mg Simvastatin 80mg Discharge Plan Admission Admit Date/Time: 11/20/23 18:19 Attending Provider: Cesar Hoffman Primary Care Provider: Wilbert Pradhan Chi Consulting Providers: Lanette Membreno; Amalia Brizuela; Bryce Tam Discharge Orders/Prescriptions Prescriptions: New doxycycline monohydrate 100 mg Capsule 100 mg PO BID 7 Days Qty: 14 0RF cephalexin 500 mg Capsule 500 mg PO Q8 7 Days Qty: 21 0RF Continued pantoprazole 40 mg tablet,delayed release (DR/EC) 40 mg PO DAILY Eliquis 5 mg tablet 5 mg PO BID atorvastatin 40 mg tablet 40 mg PO QHS trospium 20 mg tablet 20 mg PO BID Rx Instructions: administer on an empty stomach acetaminophen 500 mg tablet 1,000 mg PO Q6H PRN (Reason: pain) cyanocobalamin (vitamin B-12) 1,000 mcg tablet 1,000 mcg PO DAILY nitroglycerin 0.4 mg tablet, sublingual 0.4 mg sublingual Q5M PRN (Reason: Chest Pain) Qty: 25 3RF Rx Instructions: do not exceed 3 doses per episode fluoxetine 40 mg capsule 40 mg PO DAILY Patient Comments: Take one capsule by mouth daily. polysaccharide iron complex [iFerex 150] 150 mg iron capsule 150 mg PO DAILY Patient Comments: TAKE 1 CAPSULE BY MOUTH ONCE DAILY FOR 90 DAYS potassium chloride 20 mEq tablet,ER particles/crystals 20 meq PO DAILY Patient Comments: TAKE 1 TABLET BY MOUTH ONCE DAILY for 90 days Centrum Silver Men 300-600-300 mcg Tablet 1 tab PO DAILY furosemide [Lasix] 40 mg tablet 60 mg PO DAILY magnesium oxide 420 mg Tablet 420 mg PO DAILY ascorbic acid (vitamin C) [Vitamin C] 250 mg Tablet 250 mg PO DAILY L.acidoph,saliva-B.bif-S.therm [Acidophilus Probiotic Blend] 175 mg capsule 1 cap PO DAILY Qty: 30 1RF levothyroxine 50 mcg tablet 50 mcg PO DAILY metoprolol tartrate 50 mg tablet 50 mg PO BID Qty: 180 3RF Referrals / Follow Up: Wilbert Pradhan Chi, MD [Primary Care Provider] - Within 1 Week Disposition Disposition (needs filled in before D/C Order can be placed): Home, Self Care Charges/Coding Visit Charges Inpatient E&M: 03786 Disch Hosp >30min
--- NOTE | 2023-11-25 11:05 | CASEMGMT ---
Addendum entered by Robinson Ware 11/25/23 11:08: Pt discharging home on PO atb. Original Note: RN VERNA NOTE: Discharge order is in. RN CM to room. Pt resting in bed. He states he will need a ride home, as his does not drive and both of his adult children live out[place]of-town, he would like to use [facility] van transportation. Call placed to the call center and van transport home scheduled for 1:30 PM. Pt and nurse, Adri, made aware. Pt would like to have his meds delivered to his room and states they should call his for any payment needed. Call placed to [facility] retail pharmacy and they were made aware. Pt denies having any further discharge needs/concerns w/going home. Ina MATIAS RN CM
[2023-11-25 13:00] VITALS: BP 97/71; PULSE 76; RESP 18; TEMP 36.4; O2SAT 94
== END 2023-11-25 13:20 | disposition home or self-care (01) | DRG 602 ==
LOC: ED 17:26 → MS3 18:49
PROVIDERS: Family Medicine; Internal Medicine; Admitting Provider Internal Medicine; Emergency Provider Emergency Medicine; PCP Family Medicine Geriatric Medicine; Visit Provider Internal Medicine
DX: L03.116 Cellulitis of left lower limb (principal); I50.33 Acute on chronic diastolic (congestive) heart failure; I13.0 Hypertensive heart and chronic kidney disease with heart failure and stage 1 through stage 4 chronic kidney disease, or unspecified chronic kidney disease; L97.929 Non-pressure chronic ulcer of unspecified part of left lower leg with unspecified severity; I48.19 Other persistent atrial fibrillation; N18.32 Chronic kidney disease, stage 3b; E03.9 Hypothyroidism, unspecified; F32.A Depression, unspecified; Z68.36 Body mass index [BMI] 36.0-36.9, adult; E78.00 Pure hypercholesterolemia, unspecified; I25.10 Atherosclerotic heart disease of native coronary artery without angina pectoris; G47.33 Obstructive sleep apnea (adult) (pediatric); K21.9 Gastro-esophageal reflux disease without esophagitis; K22.70 Barrett's esophagus without dysplasia; F41.9 Anxiety disorder, unspecified; E66.9 Obesity, unspecified; Z79.01 Long term (current) use of anticoagulants; Z79.899 Other long term (current) drug therapy; Z86.73 Personal history of transient ischemic attack (TIA), and cerebral infarction without residual deficits; Z95.5 Presence of coronary angioplasty implant and graft; Z95.1 Presence of aortocoronary bypass graft
CPT/HCPCS: 36415; 73590; 80048; 80053; 80202; 81001; 83605; 83735; 84100; 85025; 87040; 87635; 93005; 93306; 97161; 97166; 97535; 97802; 99284; J7030; J7040; J7050; Q9957; A4216; C8929; J1940; J2405

== ENCOUNTER → 2024-02-08 | Outpatient (CLI) | payer MEDICARE, OTHER, SELFPAY ==
[2021-09-17 08:31] VITALS: BMI 38.4
--- NOTE | 2024-02-08 16:08 | RAD_ITS ---
EXAM: XR CHEST, 2 VIEWS CLINICAL INDICATION: WHEEZING TECHNIQUE: Frontal and lateral views of the chest. COMPARISON: 08/31/2022 FINDINGS: LUNGS AND PLEURAL SPACES: Unremarkable. No consolidation or edema. No pneumothorax. No effusion. HEART: Atrial appendage clip is in place. MEDIASTINUM: Central airways and mediastinal contour are unremarkable. BONES/JOINTS: Unremarkable. No acute fracture. SOFT TISSUES: Unremarkable. RAD/Chest PA and Lateral IMPRESSION: No acute findings in the chest. Electronically Signed: Austin Humphreys MD at 0:10 EST ,
== END | disposition home or self-care (01) ==
PROVIDERS: PCP Family Medicine Geriatric Medicine; Visit Provider Family Medicine Geriatric Medicine
DX: R06.2 Wheezing (principal); R74.8 Abnormal levels of other serum enzymes; R68.83 Chills (without fever)
CPT/HCPCS: 71046; 87631

== ENCOUNTER → 2024-02-16 | Outpatient (CLI) | payer MEDICARE, OTHER, SELFPAY ==
[2021-09-17 08:31] VITALS: BMI 38.4
[2024-02-16 15:58] LABS: Absolute Lymphocyte Count 0.93 X10^3/uL (0.83-4.51); Absolute Neutrophil Count 5.4 X10^3/uL (2.0-7.7); Basophil# 0.06 X10^3/uL; Basophil% 0.8 % (0-1); Eosinophil# 0.11 X10^3/uL; Eosinophils% 1.5 % (0-5); Hematocrit 45.9 % (40-54); Hemoglobin 15.3 g/dL (13.0-16.5); Lymphocyte # 0.93 X10^3/ul (0.83-4.51); Lymphocyte % 12.5 % (19-41); Mean Corp Hgb Conc 33.3 g/dL (32-36); Mean Corpuscular Hgb 30.6 pg (27.0-32.0); Mean Corpuscular Volume 91.8 fL (80-94); Mean Platelet Vol. 9.4 fl (6.2-12.0); Monocyte# 0.89 X10^3/uL; NRBC Flagged by Analyzer 0 % (0-5); Neutrophil # 5.37 X10^3/uL (2.7-7.7); Neutrophil % 72.3 % (47-70); Platelet Count 180 K/mm3 (150-450); RBC Distribution Width CV 15.5 % (11.6-14.6); RBC Distribution Width SD 50.6 fl (35.1-43.9); White Blood Count 7.4 K/mm3 (4.4-11.0)
[2024-02-16 16:35] LABS: Vitamin D,25 Hydroxy 60.4 ng/mL
[2024-02-16 16:43] LABS: ALB/GLOB Ratio 0.8 RATIO (0.9-2.4); AST(SGOT) 19 U/L (15-37); Alanine Aminotransfer ALT/SGPT 43 U/L (16-61); Albumin, Serum 3.1 g/dL (3.2-5.0); Alkaline Phosphatase 120 U/L (45-117); Anion Gap 6 (5-15); BUN 30 mg/dL (7-18); BUN/Creat Ratio 23.8 RATIO (10-20); Calcium,Total 8.9 mg/dL (8.5-10.1); Chloride 108 mmol/L (98-107); Creatinine, Serum 1.26 mg/dL (0.70-1.30); EST Glomerular Filtration Rate 59 mL/min (>60); Est Glom Filt Rate - Afr Amer 71 mL/min (>60); Globulin 3.7 g/dL (2.2-4.2); Glucose 71 mg/dL (74-106); Potassium 3.8 mmol/L (3.5-5.1); Protein, Total 6.8 g/dL (6.4-8.2); Sodium Level 140 mmol/L (136-145)
== END | disposition home or self-care (01) ==
LOC: LAB 15:07
PROVIDERS: PCP Family Medicine Geriatric Medicine; Referring Provider Family Medicine Geriatric Medicine; Visit Provider Family Medicine Geriatric Medicine
DX: E11.65 Type 2 diabetes mellitus with hyperglycemia (principal); E55.9 Vitamin D deficiency, unspecified; R53.83 Other fatigue
CPT/HCPCS: 36415; 80053; 82306; 84443; 85025

== ENCOUNTER → 2024-02-17 | Outpatient (CLI) | payer MEDICARE, SELFPAY ==
[2021-09-17 08:31] VITALS: BMI 38.4
== END | disposition home or self-care (01) ==
LOC: PSN 13:32
PROVIDERS: PCP Family Medicine Geriatric Medicine; Referring Provider Family Medicine Geriatric Medicine; Visit Provider Family Medicine Geriatric Medicine
DX: R68.83 Chills (without fever) (principal)
CPT/HCPCS: 87631

== ENCOUNTER → 2024-08-17 | Outpatient (CLI) | payer MEDICARE, SELFPAY ==
[2021-09-17 08:31] VITALS: BMI 38.4
[2024-08-17 14:56] LABS: Hematocrit 44.7 % (40-54); Hemoglobin 14.7 g/dL (13.0-16.5); Immature Granulocytes Count 0.010 X10^3/uL (0.0-0.0); Mean Corp Hgb Conc 32.9 g/dL (32-36); Mean Corpuscular Volume 93.9 fL (80-94); Mean Platelet Vol. 10.1 fl (6.2-12.0); NRBC Flagged by Analyzer 0 % (0-5); Platelet Count 160 K/mm3 (150-450); RBC Distribution Width CV 13.2 % (11.6-14.6); RBC Distribution Width SD 46.4 fl (35.1-43.9); Red Blood Count 4.76 M/mm3 (4.6-6.2); White Blood Count 4.9 K/mm3 (4.4-11.0)
[2024-08-17 16:27] LABS: AST(SGOT) 22 U/L (<=37); Alanine Aminotransfer ALT/SGPT 13 U/L (<=46); Albumin, Serum 3.7 g/dL (3.4-4.8); Alkaline Phosphatase 117 U/L (40-129); Anion Gap 12 (5-15); BUN 27 mg/dL (4-19); BUN/Creat Ratio 18.3 RATIO (10-20); Calcium,Total 9.1 mg/dL (7.6-11.0); Carbon Dioxide 22.5 mmol/L (21.0-32.0); Chloride 110 mmol/L (98-108); Globulin 2.5 g/dL (2.2-4.2); Glucose 109 mg/dL (70-99); Potassium 4.1 mmol/L (3.3-5.1); Vitamin D,25 Hydroxy 40.0 ng/mL (30-100)
== END | disposition home or self-care (01) ==
PROVIDERS: PCP Family Medicine Geriatric Medicine; Visit Provider Internal Medicine Nephrology
DX: E11.65 Type 2 diabetes mellitus with hyperglycemia (principal); E11.22 Type 2 diabetes mellitus with diabetic chronic kidney disease; N18.31 Chronic kidney disease, stage 3a; E55.9 Vitamin D deficiency, unspecified; R53.83 Other fatigue
CPT/HCPCS: 36415; 80053; 82306; 84443; 85025

== ENCOUNTER → 2024-10-24 | Outpatient (CLI) | payer MEDICARE, SELFPAY ==
[2021-09-17 08:31] VITALS: BMI 38.4
[2024-10-24 16:23] LABS: PSA,Total- Diagnostic < 0.02 ng/mL (0.00-4.00)
== END | disposition home or self-care (01) ==
LOC: LAB 14:07
PROVIDERS: PCP Family Medicine Geriatric Medicine; Referring Provider Urology; Visit Provider Urology
DX: C61 Malignant neoplasm of prostate (principal)
CPT/HCPCS: 36415; 84153